=== PATIENT | female | born 1955 | race African-American/Black ===

== ENCOUNTER 2017-08-14 20:21 | Emergency (ER) | payer SELFPAY ==
[~2017-08-14 20:21] MED LIST: AMLO5 PO; COLA100C PO; LORTA5 PO; PROT40TA PO
[2017-08-14 20:39] VITALS: BP 131/71; PULSE 106; RESP 15; TEMP 98.9; O2SAT 98
--- NOTE | 2017-08-15 12:13 | PD ---
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 It has been happening intermittently. She reports some lower abdominal cramping but no significant pain. Denies any trauma. No fever or chills. She has no other symptoms to report. PFSH Past Medical History Asthma: Yes Cancer: No Cardiovascular Problems: No COPD: Yes Diabetes: No Endocrine: No Genitourinary: No Immune Disorder: No Implanted Vascular Access Dvce: No Musculoskeletal: No Neurologic: No Psychiatric: No Reproductive: No Respiratory: Yes (ASTHMA) Sleep Apnea: No Thyroid Disease: No Ulcer: Yes Menopausal: Yes : 2 Para: 2 Past Surgical History Abdominal Surgery: Yes (ulcer perforation 09/30/15) Eye Surgery: Yes (BILAT CATARACT REMOVALS IN 2006) Oral Surgery: Yes (T&A A CHILD) Tonsillectomy: Yes Other Surgery: Yes Social History Alcohol Use: No Tobacco Use: Yes (1 PPD) Substance Use: No Allergies-Medications (Allergen,Severity, Reaction): Coded Allergies: No Known Allergies (Unverified Allergy, Unknown, 08/15/17) Reported Meds & Prescriptions Reported Meds & Active Scripts Active Protonix (Pantoprazole Sodium) 40 Mg Tab 40 Mg PO BID 90 Days Norvasc (Amlodipine Besylate) 5 Mg Tab 5 Mg PO DAILY 30 Days [place] 5-325 mg (Hydrocodone-Acetaminophen 5-325 mg) 5 mg/325 mg Tab 1-2 Tab PO Q4H PRN Colace (Docusate Sodium) 100 Mg Cap 100 Mg PO BID Review of Systems Except as stated in HPI: all other systems reviewed are Neg Physical Exam Narrative Well-nourished female patient ambulatory and in no acute distress. Patient appears nontoxic. Heart rate is tachycardic. She has even respirations. Abdomen is rotund. She moves all extremities. She speaks clearly to me. Data Data Last Documented VS Vital Signs Date Time Temp Pulse Resp B/P (MAP) Pulse Ox O2 Delivery O2 Flow Rate FiO2 08/14/17 20:39 98.9 106 15 131/71 (91) 98 Orders MDM Medical Decision Making Medical Screen Exam Complete: Yes Emergency Medical Condition: Yes Medical Record Reviewed: Yes Differential Diagnosis GI bleed versus neoplasm versus anemia versus hemorrhoid Narrative Course 62-year-old female presents to emergency department for evaluation of vaginal and rectal bleeding. Patient appears nontoxic. Workup is initiated in triage. Prior to the placement, patient chooses to leave AMA: The risks of leaving against medical advice without further evaluation treatment were discussed with the patient. These risks include cardiac dysfunction, cardiac dysrhythmia, possible heart attack, possible stroke or . The patient indicated understanding of these risks and appeared to have the capacity to make this decision. Diagnosis Primary Impression: Bleeding Patient Instructions: General Instructions Departure Forms: Tests/Procedures Disposition: 07 AGAINST MEDICAL ADVICE Condition: Stable Mami Linder Aug 15, 2017 12:13
== END 2017-08-15 02:04 | disposition left against medical advice (07) ==
LOC: NED 20:21
DX: K62.5 Hemorrhage of anus and rectum (principal); Z53.21 Procedure and treatment not carried out due to patient leaving prior to being seen by health care provider; N93.9 Abnormal uterine and vaginal bleeding, unspecified; R10.30 Lower abdominal pain, unspecified; R00.0 Tachycardia, unspecified; J45.909 Unspecified asthma, uncomplicated; Z72.0 Tobacco use
CPT/HCPCS: 99281

== ENCOUNTER 2017-08-15 11:27 | Inpatient (IN) | payer OTHER ==
[~2017-08-15] VITALS: Ht 162.6 cm; Wt 85.0 kg
[2017-08-15] MEDS ORDERED: IOHEXOL 350 MG/ML 10 ML VIAL (for RAD DIAG) IVCONTRAST ONE (11:28)
[2017-08-15 11:40] VITALS: BP 113/65; PULSE 140; RESP 22; TEMP 102.8; O2SAT 97
--- NOTE | 2017-08-15 12:11 | RADRPT ---
EXAM DATE/TIME: 08/15/2017 11:52 [facility] COMPARISON: No previous studies available for comparison. INDICATIONS : Fever, cough, short of breath. MEDICAL HISTORY : None. SURGICAL HISTORY : None. ENCOUNTER: Initial ACUITY: 1 day PAIN SCORE: Non-responsive. LOCATION: Bilateral chest FINDINGS: PA and lateral views of the chest demonstrate the lungs to be symmetrically aerated without evidence of mass, infiltrate or effusion. The cardiomediastinal contours are unremarkable. Osseous structure s are intact. CONCLUSION: No acute disease. Mayco Lazo MD on August 15, 2017 at 12:09 Board Certified Radiologist. This report was verified electronically.
[2017-08-15 12:59] VITALS: BP 119/58; PULSE 114; RESP 19; O2SAT 96
--- NOTE | 2017-08-15 12:59 | PD ---
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 She did not know she had a fever. She denies any other specific complaints at this time. She states she took Tylenol PM last night but has not taken anything today. She states she doesn't think she's seen a physician for this. History is limited from patient as she is a poor historian. PFSH Past Medical History Asthma: Yes Cancer: No Cardiovascular Problems: No COPD: Yes Diabetes: No Endocrine: No Genitourinary: No Immune Disorder: No Implanted Vascular Access Dvce: No Musculoskeletal: No Neurologic: No Psychiatric: No Reproductive: No Respiratory: Yes (ASTHMA) Sleep Apnea: No Thyroid Disease: No Ulcer: Yes ?: Unknown Menopausal: Yes : 2 Para: 2 Past Surgical History Abdominal Surgery: Yes (ulcer perforation 09/30/15) Eye Surgery: Yes (BILAT CATARACT REMOVALS IN 2006) Oral Surgery: Yes (T&A A CHILD) Tonsillectomy: Yes Other Surgery: Yes Social History Alcohol Use: No Tobacco Use: Yes (1 PPD) Substance Use: No Allergies-Medications (Allergen,Severity, Reaction): Coded Allergies: No Known Allergies (Unverified Allergy, Unknown, 08/15/17) Reported Meds & Prescriptions Reported Meds & Active Scripts Active Protonix (Pantoprazole Sodium) 40 Mg Tab 40 Mg PO BID 90 Days Norvasc (Amlodipine Besylate) 5 Mg Tab 5 Mg PO DAILY 30 Days [place] 5-325 mg (Hydrocodone-Acetaminophen 5-325 mg) 5 mg/325 mg Tab 1-2 Tab PO Q4H PRN Colace (Docusate Sodium) 100 Mg Cap 100 Mg PO BID Review of Systems Except as stated in HPI: all other systems reviewed are Neg Physical Exam Narrative GENERAL: 62-year-old female in no apparent distress SKIN: Focused skin assessment warm/dry. HEAD: Atraumatic. Normocephalic. EYES: Pupils equal and round. No scleral icterus. No injection or drainage. ENT: No nasal bleeding or discharge. Mucous membranes pink and moist. NECK: Trachea midline. No JVD. CARDIOVASCULAR: Regular rate and rhythm. RESPIRATORY: No accessory muscle use. Clear to auscultation. Breath sounds equal bilaterally. GASTROINTESTINAL: Abdomen soft, mild tenderness to lower abdomen, nondistended. No rebound or guarding MUSCULOSKELETAL: No obvious deformities. No clubbing. No cyanosis. NEUROLOGICAL: Awake. Moves all extremities. Normal speech. Data Data Last Documented VS Vital Signs Date Time Temp Pulse Resp B/P (MAP) Pulse Ox O2 Delivery O2 Flow Rate FiO2 08/15/17 14:57 100.2 08/15/17 12:59 114 19 96 Room Air Orders Orders Sepsis Workup Initiated (08/15/17 ) Complete Blood Count With Diff (08/15/17 11:38) Comprehensive Metabolic Panel (08/15/17 11:38) Lactic Acid Sepsis Protocol (08/15/17 11:38) Blood Culture (08/15/17 11:38) Iv Access Insert/Monitor (08/15/17 11:38) Oximetry (08/15/17 11:38) Blood Glucose (08/15/17 11:38) Electrocardiogram (08/15/17 ) Chest, Pa & Lat (08/15/17 11:38) Lipase (08/15/17 12:44) Urinalysis - C+S If Indicated (08/15/17 12:51) Ct Abd/Pel W Iv Contrast(Rout) (08/15/17 ) Acetaminophen (Tylenol) (08/15/17 13:00) Sodium Chlor 0.9% 1000 Ml Inj (Ns 1000 M (08/15/17 13:00) Sodium Chlor 0.9% 1000 Ml Inj (Ns 1000 M (08/15/17 15:15) Urinary Catheter Insert/Apply (08/15/17 15:04) Piperacil-Tazo 4.5 Gm Premix (Zosyn 4.5 (08/15/17 15:15) Iohexol 350 Inj (Omnipaque 350 Inj) (08/15/17 11:28) Urine Culture (08/15/17 15:25) Sodium Chlorid 0.9% 500 Ml Inj (Ns 500 M (08/15/17 16:45) Admit Order (Ed Use Only) (08/15/17 16:43) Labs Laboratory Tests Test 08/15/17 11:38 08/15/17 13:09 08/15/17 15:25 08/15/17 16:10 Blood Urea Nitrogen 8 MG/DL Creatinine 1.03 MG/DL Random Glucose 303 MG/DL Total Protein 8.4 GM/DL Albumin 2.5 GM/DL Calcium Level 8.9 MG/DL Alkaline Phosphatase 141 U/L Aspartate Amino Transf (AST/SGOT) 10 U/L Alanine Aminotransferase (ALT/SGPT) 11 U/L Total Bilirubin 0.7 MG/DL Sodium Level 130 MEQ/L Potassium Level 4.2 MEQ/L Chloride Level 98 MEQ/L Carbon Dioxide Level 22.9 MEQ/L Anion Gap 9 MEQ/L Estimat Glomerular Filtration Rate 66 ML/MIN Lipase 41 U/L White Blood Count 13.2 TH/MM3 Red Blood Count 3.16 MIL/MM3 Hemoglobin 9.5 GM/DL Hematocrit 27.4 % Mean Corpuscular Volume 86.6 FL Mean Corpuscular Hemoglobin 30.0 PG Mean Corpuscular Hemoglobin Concent 34.7 % Red Cell Distribution Width 14.4 % Platelet Count 459 TH/MM3 Mean Platelet Volume 6.5 FL Neutrophils (%) (Auto) 97.4 % Lymphocytes (%) (Auto) 1.7 % Monocytes (%) (Auto) 0.7 % Eosinophils (%) (Auto) 0.1 % Basophils (%) (Auto) 0.1 % Neutrophils # (Auto) 12.8 TH/MM3 Lymphocytes # (Auto) 0.2 TH/MM3 Monocytes # (Auto) 0.1 TH/MM3 Eosinophils # (Auto) 0.0 TH/MM3 Basophils # (Auto) 0.0 TH/MM3 CBC Comment AUTO DIFF Differential Total Cells Counted 100 Neutrophils % (Manual) 71 % Band Neutrophils % 25 % Lymphocytes % 4 % Neutrophils # (Manual) 12.7 TH/MM3 Differential Comment FINAL DIFF MANUAL Platelet Estimate HIGH Platelet Morphology Comment NORMAL Red Cell Morphology Comment NORMAL Lactic Acid Level 2.2 mmol/L 1.7 mmol/L Urine Color YELLOW Urine Turbidity CLOUDY Urine pH 5.0 Urine Specific [place] 1.009 Urine Protein TRACE mg/dL Urine Glucose (UA) NEG mg/dL Urine Ketones NEG mg/dL Urine Occult Blood TRACE Urine Nitrite NEG Urine Bilirubin NEG Urine Urobilinogen LESS THAN 2.0 MG/DL Urine Leukocyte Esterase LARGE Urine RBC 1 /hpf Urine WBC 25 /hpf Urine Bacteria MANY /hpf Microscopic Urinalysis Comment CULTURE INDICATED MDM Medical Decision Making Medical Screen Exam Complete: Yes Emergency Medical Condition: Yes Medical Record Reviewed: Yes (past history confirmed) Interpretation(s) CBC & BMP Diagram 08/15/17 11:38 Total Protein 8.4 H, Albumin 2.5 L, Calcium Level 8.9, Alkaline Phosphatase 141 H, Aspartate Amino Transf (AST/SGOT) 10 L, Alanine Aminotransferase (ALT/SGPT) 11, Total Bilirubin 0.7 08/15/17 13:09 Last 24 hours Impressions Chest X-Ray 08/15/17 1138 Signed Impressions: Service Date/Time: Tuesday, August 15, 2017 11:52 - CONCLUSION: No acute disease. Mayco Lazo MD Abdomen/Pelvis CT 08/15/17 0000 Signed Impressions: Service Date/Time: Tuesday, August 15, 2017 15:53 - CONCLUSION: 1. Grossly abnormal uterus with a large heterogeneous lower uterine segment which appears to be causing obstruction to the body of the uterus. Neoplastic disease of the lower uterus and/or cervix are the primary considerations. 2. The rest of the abdomen/pelvis is stable compared to the prior exam. Joaquín Leonard MD Differential Diagnosis Sepsis, UTI, pneumonia, intra-abdominal Narrative Course Will check blood work, urinalysis, CT scan abdominal pelvis and reevaluate. Chest x-ray from triage shows no acute process Will discuss abnormal CT with OB hospitalist and admit to the hospital for further care. Patient updated and agrees to plan Sepsis Criteria SIRS Criteria (2 or more): Temp > 100.9 or < 96.8, Heart rate over 90 Sepsis Criteria (SIRS+source): Infect source susp/known Severe Sepsis (+one): Lactate >2 Criteria Outcome: Meets severe sepsis criteria Physician Communication Physician Communication d/w ob hospitalist dr de leon in ER who came down to see a different patient and states needs outpatient rn gyn follow up in terms of ct findings and symptoms in regards to bleeding dr griffiths agrees to admit Diagnosis Primary Impression: Sepsis Qualified Codes: A41.9 - Sepsis, unspecified organism Additional Impressions: UTI (urinary tract infection) Qualified Codes: N39.0 - Urinary tract infection, site not specified Abdominal pain Qualified Codes: R10.30 - Lower abdominal pain, unspecified Hyponatremia Admitting Information Admitting Physician Requests: Admit Daria Guzman MD Aug 15, 2017 12:59
[2017-08-15] MEDS ORDERED: ACETAMINOPHEN 325 MG TAB PO ONE (13:00)
[2017-08-15] MEDS ORDERED: SODIUM CHLOR 0.9% 1000 ML INJ 1,000 ML IV ONE ×2 (13:00→15:15)
[2017-08-15 13:40] LABS: AUTOMATED NEUTROPHIL # 12.8 TH/MM3 (1.8-7.7); BASOPHIL % 0.1 % (0.0-2.0); EOSINOPHIL % 0.1 % (0.0-4.0); HEMATOCRIT 27.4 % (35.0-46.0); HEMOGLOBIN 9.5 GM/DL (11.6-15.3); LYMPH % 1.7 % (9.0-44.0); LYMPHOCYTE # 0.2 TH/MM3 (1.0-4.8); MEAN CELL VOLUME 86.6 FL (80.0-100.0); MEAN CORPUSCULAR HGB CONC 34.7 % (32.0-36.0); MEAN PLATELET VOLUME 6.5 FL (7.0-11.0); MONO % 0.7 % (0.0-8.0); MONOCYTE # 0.1 TH/MM3 (0-0.9); NEUT % 97.4 % (16.0-70.0); PLATELET COUNT 459 TH/MM3 (150-450); RED BLOOD COUNT 3.16 MIL/MM3 (4.00-5.30); RED CELL DISTRIBUTION WIDTH 14.4 % (11.6-17.2); WHITE BLOOD COUNT 13.2 TH/MM3 (4.0-11.0)
[2017-08-15 13:44] LABS: LACTIC ACID SEPSIS PROTOCOL 2.2 mmol/L (0.4-2.0)
[2017-08-15 14:07] LABS: BANDS 25 % (0-6); LYMPHOCYTES 4 % (9-44); NEUTROPHIL # MANUAL DIFF 12.7 TH/MM3 (1.8-7.7); POLYS (SEG NEUTROPHILS) 71 % (16-70)
[2017-08-15 14:57] VITALS: TEMP 100.2
[2017-08-15 15:13] LABS: ALBUMIN 2.5 GM/DL (3.4-5.0); ALT (GPT) 11 U/L (10-53); AST (GOT) 10 U/L (15-37); BICARBONATE 22.9 MEQ/L (21.0-32.0); BLOOD UREA NITROGEN 8 MG/DL (7-18); CALCIUM 8.9 MG/DL (8.5-10.1); CHLORIDE 98 MEQ/L (98-107); CREATININE 1.03 MG/DL (0.50-1.00); GLOMERULAR FILTRATION RATE 66 ML/MIN (>89); GLUCOSE,RANDOM 303 MG/DL (74-106); SODIUM (NA) 130 MEQ/L (136-145)
[2017-08-15] MEDS ORDERED: PIPERACIL-TAZO 4.5 GM PREMIX 100 ML IV ONE (15:15)
[2017-08-15 15:16] LABS: ALKALINE PHOSPHATASE 141 U/L (45-117); TOTAL BILIRUBIN ADULT 0.7 MG/DL (0.2-1.0); TOTAL PROTEIN 8.4 GM/DL (6.4-8.2)
[2017-08-15 16:13] LABS: BACTERIA, URINE MANY /hpf; BILIRUBIN, URINE NEG (NEG); BLOOD, URINE TRACE (NEG); GLUCOSE,URINE NEG (NEG); KETONE, URINE NEG (NEG); NITRITE,URINE NEG (NEG); URINE COLOR YELLOW (YELLW/STRAW); URINE LEUKOCYTE ESTERASE LARGE (NEG)
--- NOTE | 2017-08-15 16:22 | RADRPT ---
EXAM DATE/TIME: 08/15/2017 15:53 [facility] COMPARISON: CT ABDOMEN & PELVIS W CONTRAST, September 29, 2015, 21:15. INDICATIONS : Diffuse lower abdomen pain with vaginal bleeding. IV CONTRAST: 86 cc Omnipaque 350 (iohexol) IV ORAL CONTRAST: No oral contrast ingested. RADIATION DOSE: 7.17 CTDIvol (mGy) MEDICAL HISTORY : Hypertension. Chronic obstructive pulmonary disease. SURGICAL HISTORY : None. ENCOUNTER: Initial ACUITY: 4 - 6 days PAIN SCALE: 6/10 LOCATION: Bilateral lower quadrant TECHNIQUE: Volumetric scanning of the abdomen and pelvis was performed. Using automated exposure control and ad justment of the mA and/or kV according to patient size, radiation dose was kept as low as reasonably achievable to obtain optimal diagnostic quality images. DICOM format image data is available electro nically for review and comparison. FINDINGS: LOWER LUNGS: The visualized lower lungs are clear. LIVER: Homogeneous density without lesion. There is no dilation of the biliary tree. No calcified gallston es. SPLEEN: Normal size without lesion. PANCREAS: Within normal limits. KIDNEYS: Normal in size and shape. There is no mass, stone or hydronephrosis. ADRENAL GLANDS: Within normal limits. VASCULAR: There is no aortic aneurysm. BOWEL/MESENTERY: The stomach, small bowel, and colon demonstrate no acute abnormality. There is no free intraperitone al air or fluid. There is stool seen throughout the colon. No inflammatory changes are seen. ABDOMINAL WALL: Small umbilical hernia containing mesenteric fat. RETROPERITONEUM: There is no lymphadenopathy. BLADDER: Jackson catheter. Decompressed urinary bladder.. REPRODUCTIVE: There has been interval change with the uterus compared to the prior study. The lower uterine segment is large heterogeneous and irregular measuring approximately 6.9 x 8.1 cm. The uterus is diffusely e nlarged and there appears to be fluid in the endometrial cavity suggestive of an obstructed uterus. T hese findings would be highly suspicious for neoplastic disease. INGUINAL: There is no lymphadenopathy or hernia. MUSCULOSKELETAL: Within normal limits for patient age. CONCLUSION: 1. Grossly abnormal uterus with a large heterogeneous lower uterine segment which appears to be causi ng obstruction to the body of the uterus. Neoplastic disease of the lower uterus and/or cervix are th e primary considerations. 2. The rest of the abdomen/pelvis is stable compared to the prior exam. Joaquín Leonard MD on August 15, 2017 at 16:16 Board Certified Radiologist. This report was verified electronically.
[2017-08-15] MEDS ORDERED: SODIUM CHLORID 0.9% 500 ML INJ 500 ML IV ONE (16:45)
[2017-08-15] MEDS ORDERED: NALOXONE HCL 0.4 MG/ML AMP IV PUSH PRN (17:00)
[2017-08-15 17:47] VITALS: BP 91/51; PULSE 88; RESP 18; O2SAT 99
[2017-08-15] MEDS ORDERED: DEXTROSE 50% IN WATER 50 ML VIAL(D50) IV PUSH PRN (18:15)
[2017-08-15] MEDS ORDERED: GLUCAGON 1 MG/ML VIAL OTHER PRN (18:15)
[2017-08-15 18:23] VITALS: BP 99/58; PULSE 93; RESP 18; TEMP 98.6; O2SAT 95
--- NOTE | 2017-08-15 18:23 | HHI.HP ---
HPI Service [facility] Hospitalists Primary Care Physician No Primary Care Physician Admission Diagnosis sepsis, uti Diagnoses: Chief Complaint: Abdominal pain Vaginal bleeding Rectal bleeding Travel History International Travel<30 Days: No Contact w/Intl Traveler <30 Da: No Traveled to Known Affected Are: No Sepsis Criteria SIRS Criteria (2 or more): Temp > 100.9 or < 96.8, Heart rate over 90, RR > 20 or PaCO2 < 32, WBC > 35534, < 4000 or > 10% bands Sepsis Criteria (SIRS+source): Infect source susp/known Severe Sepsis (+one): Lactate >2, Acute Oliguria/Renal Failure Criteria Outcome: Meets severe sepsis criteria History of Present Illness This is a 62yo female with a past medical history significant for asthma/COPD, hx of perforated viscus, hypertension, diabetes and previous tobacco use with poor medical follow up who presents to [facility] ED with complaints of lower abdominal pain and vaginal bleeding for the past month. She also reports rectal bleeding for the past 2 weeks. She is not a very good historian. [facility]. She denies any fever or chills. She denies any dizziness, lightheadedness or palpitations. She denies any chest pain or shortness of breath. She denies any nausea, vomiting or abdominal pain. She denies any dysuria. She denies any dark/bloody/tarry stools but reports seeing blood on the tissues when she wiped after having a bowel movement. Patient states she quit smoking one year ago. In the ED, CT of abdomen and pelvis was obtained revealing grossly abnormal uterus with large heterogeneous lower uterine segment which appears to be causing obstruction to the body of the uterus. Neoplastic disease of the lower uterus and cervix are primary considerations. Review of Systems Except as stated in HPI: all other systems reviewed are Neg Past Family Social History Past Medical History Asthma/COPD Hx of perforated ulcer Hypertension Diabetes Past Surgical History Cataract surgery Laparoscopic repair of perforated ulcer Tonsillectomy Reported Medications Protonix (Pantoprazole Sodium) 40 Mg Tab 40 Mg PO BID 90 Days Norvasc (Amlodipine Besylate) 5 Mg Tab 5 Mg PO DAILY 30 Days [place] 5-325 mg (Hydrocodone-Acetaminophen 5-325 mg) 5 mg/325 mg Tab 1-2 Tab PO Q4H PRN Colace (Docusate Sodium) 100 Mg Cap 100 Mg PO BID Allergies: Coded Allergies: No Known Allergies (Unverified Allergy, Unknown, 08/15/17) Active Ordered Medications Current Medications Medications (Trade) Dose Ordered Sig/Caitlin Route Start Time Stop Time Status Last Admin Sodium Chloride 500 ml @ 500 mls/hr BOLUS ONCE IV 08/15/17 16:45 08/15/17 17:44 Sodium Chloride 1,000 ml @ 100 mls/hr Q10H IV 08/15/17 16:57 UNV (NS Flush) 2 ml UNSCH PRN IV FLUSH 08/15/17 17:00 UNV (NS Flush) 2 ml BID IV FLUSH 08/15/17 21:00 UNV (Narcan Inj) 0.4 mg UNSCH PRN IV PUSH 08/15/17 17:00 UNV Piperacillin Sod/ Tazobactam Sod 100 ml @ 200 mls/hr Q6H IV 08/15/17 21:00 UNV Family History Patient is adopted Social History Patient has a history of tobacco use of one to 2 packs per day for many years but quit 1 year ago. She denies any alcohol use. She denies any illicit drug use. She lives with her daughter who is 43. Physical Exam Vital Signs Vital Signs Date Time Temp Pulse Resp B/P (MAP) Pulse Ox O2 Delivery O2 Flow Rate FiO2 08/15/17 14:57 100.2 08/15/17 12:59 114 19 119/58 (78) 96 Room Air 08/15/17 11:40 102.8 140 22 113/65 (81) 97 Physical Exam GENERAL: This is a well-nourished, well-developed female patient, in no apparent distress. Awake and alert. Appears comfortable. SKIN: No rashes, ecchymoses or lesions. Cool and dry. HEAD: Atraumatic. Normocephalic. No temporal or scalp tenderness. EYES: Pupils equal round and reactive. Extraocular motions intact. No scleral icterus. No injection or drainage. ENT: Nose without bleeding or purulent drainage. Throat without erythema, tonsillar hypertrophy or exudate. Uvula midline. Airway patent. NECK: Trachea midline. No lymphadenopathy. Supple, nontender, no meningeal signs. CARDIOVASCULAR: Regular rate and rhythm without murmurs, gallops, or rubs. RESPIRATORY: Clear to auscultation. Breath sounds equal bilaterally. No wheezes , rales, or rhonchi. GASTROINTESTINAL: Abdomen soft, non-tender, nondistended. No hepato-splenomegaly , or palpable masses. No guarding. GENITOURINARY: Jackson catheter in place with yellow urine in the bag. RECTAL: (+)external hemorrhoid. Guaiac test positive. MUSCULOSKELETAL: Extremities without clubbing, cyanosis, or edema. No joint tenderness, effusion, or edema noted. No calf tenderness. NEUROLOGICAL: Awake and alert. Cranial nerves II through XII grossly intact. Motor and sensory grossly within normal limits. Five out of 5 muscle strength in all muscle groups. Normal speech. Laboratory Laboratory Tests Test 08/15/17 11:38 08/15/17 13:09 08/15/17 15:25 08/15/17 16:10 Blood Urea Nitrogen 8 Creatinine 1.03 Random Glucose 303 Total Protein 8.4 Albumin 2.5 Calcium Level 8.9 Alkaline Phosphatase 141 Aspartate Amino Transf (AST/SGOT) 10 Alanine Aminotransferase (ALT/SGPT) 11 Total Bilirubin 0.7 Sodium Level 130 Potassium Level 4.2 Chloride Level 98 Carbon Dioxide Level 22.9 Anion Gap 9 Estimat Glomerular Filtration Rate 66 Lipase 41 White Blood Count 13.2 Red Blood Count 3.16 Hemoglobin 9.5 Hematocrit 27.4 Mean Corpuscular Volume 86.6 Mean Corpuscular Hemoglobin 30.0 Mean Corpuscular Hemoglobin Concent 34.7 Red Cell Distribution Width 14.4 Platelet Count 459 Mean Platelet Volume 6.5 Neutrophils (%) (Auto) 97.4 Lymphocytes (%) (Auto) 1.7 Monocytes (%) (Auto) 0.7 Eosinophils (%) (Auto) 0.1 Basophils (%) (Auto) 0.1 Neutrophils # (Auto) 12.8 Lymphocytes # (Auto) 0.2 Monocytes # (Auto) 0.1 Eosinophils # (Auto) 0.0 Basophils # (Auto) 0.0 CBC Comment AUTO DIFF Differential Total Cells Counted 100 Neutrophils % (Manual) 71 Band Neutrophils % 25 Lymphocytes % 4 Neutrophils # (Manual) 12.7 Differential Comment FINAL DIFF MANUAL Platelet Estimate HIGH Platelet Morphology Comment NORMAL Red Cell Morphology Comment NORMAL Lactic Acid Level 2.2 1.7 Urine Color YELLOW Urine Turbidity CLOUDY Urine pH 5.0 Urine Specific [place] 1.009 Urine Protein TRACE Urine Glucose (UA) NEG Urine Ketones NEG Urine Occult Blood TRACE Urine Nitrite NEG Urine Bilirubin NEG Urine Urobilinogen LESS THAN 2.0 Urine Leukocyte Esterase LARGE Urine RBC 1 Urine WBC 25 Urine Bacteria MANY Microscopic Urinalysis Comment CULTURE INDICATED Date/Time Source Procedure Growth Status 08/15/17 13:09 Blood Peripheral Aerobic Blood Culture Pending Received 08/15/17 13:09 Blood Peripheral Anaerobic Blood Culture Pending Received 08/15/17 15:25 Urine Clean Catch Urine Culture Pending Received Result Diagram: 08/15/17 1309 08/15/17 1138 Imaging Last Impressions Chest X-Ray 08/15/17 1138 Signed Impressions: Service Date/Time: Tuesday, August 15, 2017 11:52 - CONCLUSION: No acute disease. Mayco Lazo MD Abdomen/Pelvis CT 08/15/17 0000 Signed Impressions: Service Date/Time: Tuesday, August 15, 2017 15:53 - CONCLUSION: 1. Grossly abnormal uterus with a large heterogeneous lower uterine segment which appears to be causing obstruction to the body of the uterus. Neoplastic disease of the lower uterus and/or cervix are the primary considerations. 2. The rest of the abdomen/pelvis is stable compared to the prior exam. MD Paulo Jackson VTE Risk Assessment Caprinchantal VTE Risk Assessment: Mod/High Risk (score >= 2) VTE Pharm Contraindication: Active bleeding Caprini Risk Assessment Model Point Value = 1 Point Value = 2 Point Value = 3 Point Value = 5 Age 41-60 Minor surgery BMI > 25 kg/m2 Swollen legs Varicose veins or History of unexplained or recurrent spontaneous Oral contraceptives or hormone replacement Sepsis (< 1 month) Serious lung disease, including pneumonia (< 1 month) Abnormal pulmonary function Acute myocardial infarction Congestive heart failure (< 1 month) History of inflammatory bowel disease Medical patient at bed rest Age 61-74 Arthroscopic surgery Major open surgery (> 45 min) Laparoscopic surgery (> 45 min) Malignancy Confined to bed (> 72 hours) Immobilizing plaster cast Central venous access Age >= 75 History of VTE Family history of VTE Factor V Leiden Prothrombin [id number] Lupus anticoagulant Anticardiolipin antibodies Elevated serum homocysteine Heparin-induced thrombocytopenia Other congenital or acquired thrombophilia Stroke (< 1 month) Elective arthroplasty Hip, pelvis, or leg fracture Acute spinal cord injury (< 1 month) Prophylaxis Regimen Total Risk Factor Score Risk Level Prophylaxis Regimen 0-1 Low Early ambulation 2 Moderate Order ONE of the following: *Sequential Compression Device (SCD) *Heparin 5000 units SQ BID 3-4 Higher Order ONE of the following medications: *Heparin 5000 units SQ TID *Enoxaparin/Lovenox 40 mg SQ daily (WT < 150 kg, CrCl > 30 mL/min) *Enoxaparin/Lovenox 30 mg SQ daily (WT < 150 kg, CrCl > 10-29 mL/min) *Enoxaparin/Lovenox 30 mg SQ BID (WT < 150 kg, CrCl > 30 mL/min) AND/OR *Sequential Compression Device (SCD) 5 or more Highest Order ONE of the following medications: *Heparin 5000 units SQ TID (Preferred with Epidurals) *Enoxaparin/Lovenox 40 mg SQ daily (WT < 150 kg, CrCl > 30 mL/min) *Enoxaparin/Lovenox 30 mg SQ daily (WT < 150 kg, CrCl > 10-29 mL/min) *Enoxaparin/Lovenox 30 mg SQ BID (WT < 150 kg, CrCl > 30 mL/min) AND *Sequential Compression Device (SCD) Assessment and Plan Assessment and Plan 62yo female with a past medical history significant for asthma/ COPD, hx of perforated viscus, hypertension, diabetes and previous tobacco use with poor medical follow up who presents to [facility] ED with complaints of lower abdominal pain and vaginal bleeding for the past month. She also reports rectal bleeding for the past 2 weeks. Patient meets severe sepsis criteria with fever of 102.8, tachycardiac with HR 140, RR 22, elevated white count of 13.2, lactic acid of 2.2, creatinine 1.03 and UTI source -Patient admitted with sepsis bundle in the ED. Repeat lactic acid is 1.7 -IVF -IV Zosyn given in ED, continue -continue to monitor white count -follow up on final urine and blood culture results -supportive care -Continuous cardiac monitoring GIB -stool Guaiac positive -NPO -IVF -Protonix 40mg IV BID -Consult GI, appreciate recommendations -serial H/H -avoid anticoagulants Anemia -hemoglobin 9.5 -Appears chronic -Serial H&H's given GIB and AUB -obtain iron studies -monitor H/H closely Abnormal uterine bleeding -CT abd/pelvis reveals grossly abnormal uterus with large heterogeneous lower uterine segment which appears to be causing obstruction to the body of the uterus. Neoplastic disease of the lower uterus and cervix are primary considerations. -Consult gynecology, appreciate assistance MIK on ?CKD -Unsure of patient's baseline, last creatinine in the system 0.60 09/2015 -Avoid nephrotoxic agent -IV fluid -Continue to follow renal indices Diabetes -Documented history in the EMR but patient denies -Random glucose 303. Obtain A1c level. Previous A1c 8.2 10/03/15. -accucheck and ISS -Hold off on initiation of scheduled insulin due to NPO Hypertension -Documented history in the EMR but patient denies -Previously on Norvasc 5 mg daily -Blood pressure currently controlled -will continue to monitor BP off meds and will initiate treatment if indicated Asthma/COPD, not in acute exacerbation -DuoNeb's when necessary -Continue to monitor respiratory status DVT prophylaxis -Avoid chemoprophylaxis secondary to GI bleed -bilateral SCD/DENISE hose Discussed Condition With Patient and Dr. Brock Physician Certification 2 Midnight Certification Type: Admission for Inpatient Services Order for Inpatient Services The services are ordered in accordance with Medicare regulations or non- Medicare payer requirements, as applicable. In the case of services not specified as inpatient-only, they are appropriately provided as inpatient services in accordance with the 2-midnight benchmark. Estimated LOS (days): 3 3 days is the estimated time the patient will need to remain in the hospital, assuming treatment plan goals are met and no additional complications. Post-Hospital Plan: Not yet determined Rufina Austin Aug 15, 2017 18:23
[2017-08-15] MEDS ORDERED: RESP: ALBUTEROL 2.5 MG/IPRATROPIUM 0.5 MG NEB (PRN) NEB (18:30)
[2017-08-15] MEDS ORDERED: hydrALAZINE HCL 10 MG TAB PO PRN (18:30)
[2017-08-15] MEDS: PANTOPRAZOLE SODIUM 40 MG VIAL IV PUSH SCH (18:52)
[2017-08-15 19:06] LABS: IRON (FE) 12 MCG/DL (50-170)
[2017-08-15 19:31] LABS: % SATURATION IRON PROFILE 6.5 % (20-50); FERRITIN 152 NG/ML (8-252); FOLATE 6.1 NG/ML (3.1-17.5); TOTAL IRON BINDING CAPACITY 183 MCG/DL (250-450)
[2017-08-15 20:00] VITALS: BP 103/58; PULSE 86; RESP 18; TEMP 97.8; O2SAT 96
[2017-08-15] MEDS: SODIUM CHLOR 0.9% 1000 ML INJ 1,000 ML IV SCH (21:40)
[2017-08-15] MEDS: PIPERACIL-TAZO 4.5 GM PREMIX 100 ML IV SCH (21:40)
[2017-08-15] MEDS: SODIUM CHLORIDE 0.9% FLUSH 10 ML FLUSH IV FLUSH SCH (21:41)
[2017-08-15] MEDS: INSULIN ASPART SUPPLEMENTAL SCALE SQ SCH (22:00)
[2017-08-16] VITALS (10 sets, daily range): BP systolic 90–130; BP diastolic 48–62; PULSE 81–111; RESP 16–20; TEMP 96.3–102.1; O2SAT 93–98
[2017-08-16 00:38] LABS: HEMOGLOBIN 7.6 GM/DL (11.6-15.3)
[2017-08-16 00:44] LABS: HEMATOCRIT 20.4 % (35.0-46.0)
[2017-08-16] MEDS: ACETAMINOPHEN 325 MG TAB PO PRN ×3 (02:08→10:00)
[2017-08-16] MEDS: PIPERACIL-TAZO 4.5 GM PREMIX 100 ML IV SCH ×4 (02:08→21:54)
[2017-08-16] MEDS: SODIUM CHLOR 0.9% 1000 ML INJ 1,000 ML IV SCH ×3 (02:09→22:00)
[2017-08-16 04:23] LABS: BASOPHIL % 0.2 % (0.0-2.0); HEMATOCRIT 21.8 % (35.0-46.0); HEMOGLOBIN 7.2 GM/DL (11.6-15.3); LYMPHOCYTE # 0.5 TH/MM3 (1.0-4.8); MEAN CELL VOLUME 85.3 FL (80.0-100.0); MEAN CORPUSCULAR HEMOGLOBIN 28.3 PG (27.0-34.0); MEAN CORPUSCULAR HGB CONC 33.2 % (32.0-36.0); MEAN PLATELET VOLUME 6.5 FL (7.0-11.0); MONO % 2.3 % (0.0-8.0); MONOCYTE # 0.4 TH/MM3 (0-0.9); NEUT % 94.5 % (16.0-70.0); PLATELET COUNT 342 TH/MM3 (150-450); RED BLOOD COUNT 2.56 MIL/MM3 (4.00-5.30); RED CELL DISTRIBUTION WIDTH 14.2 % (11.6-17.2); WHITE BLOOD COUNT 16.9 TH/MM3 (4.0-11.0)
[2017-08-16 04:56] LABS: BICARBONATE 21.9 MEQ/L (21.0-32.0); CREATININE 0.93 MG/DL (0.50-1.00)
[2017-08-16] MEDS: PANTOPRAZOLE SODIUM 40 MG VIAL IV PUSH SCH ×2 (04:58→16:59)
[2017-08-16] MEDS ORDERED: SODIUM CHLOR 0.9% 250 ML INJ 250 ML IV ONE (06:00)
[2017-08-16] MEDS ORDERED: POTASSIUM CHLORIDE 25 MEQ EFFERVESCENT TAB PO ONE (06:00)
[2017-08-16] MEDS ORDERED: diphenhydrAMINE HCL 25 MG CAP PO PRN (06:00)
[2017-08-16] MEDS: INSULIN ASPART SUPPLEMENTAL SCALE SQ SCH ×4 (08:00→21:00)
[2017-08-16] MEDS: SODIUM CHLORIDE 0.9% FLUSH 10 ML FLUSH IV FLUSH SCH ×2 (09:00→21:55)
--- NOTE | 2017-08-16 09:16 | PD.CONS ---
History of Present Illness Service [facility] Consult Requested By Dr. Brock, hospitalist Reason for Consult Abnormal CT Primary Care Physician No Primary Care Physician Diagnoses: (1) Abdominal pain History of Present Illness Ms. Salmeron is a 62-year-old female admitted for urosepsis and possible lower GI bleed. During evaluation, patient found to have abnormal uterus on CT and LACE SEWER was consulted. Chart review, patient initially complained of vaginal bleeding for the past month, however during my interview this morning stated her bleeding began last Monday with her rectal bleeding. She describes the bleeding is mild passing coffee nuno-sized clots last Monday, which have resolved. She is unable to clearly identify if her bleeding is vaginal or rectal at this time as she is only noticed the bleeding when she has a bowel movement and wipes. Patient denies any abnormal Pap smears and cannot remember the last time of exam. Patient states that she has been amenorrheic since 19 years of age "when she had her last child." She does endorse lower abdominal pain that has improved since her admission. She denies any anemic symptoms including presyncope, tachycardia, palpitations, or shortness of breath. Otherwise she has no complaints at this time and denies any recent fevers, chills, shortness of breath, chest pain, NVD, or calf tenderness. Review of Systems Constitutional: DENIES: Fever, Weight gain, Weight loss, Chills, Dizziness, Change in appetite, Night Sweats Eyes: DENIES: Blurred vision, Double Vision Ears, nose, mouth, throat: DENIES: Nasal discharge, Throat pain Respiratory: DENIES: Cough, Shortness of breath Cardiovascular: DENIES: Chest pain, Palpitations, Syncope Gastrointestinal: COMPLAINS OF: Abdominal pain, Bloody stools, DENIES: Black stools, Diarrhea, Nausea, Vomiting Genitourinary: COMPLAINS OF: Abnormal vaginal bleeding, DENIES: Dysuria Musculoskeletal: DENIES: Joint pain Integumentary: DENIES: Rash Hematologic/lymphatic: DENIES: Lymphadenopathy Neurologic: DENIES: Headache Psychiatric: DENIES: Mood changes Past Family Social History Allergies: Coded Allergies: No Known Allergies (Unverified Allergy, Unknown, 08/15/17) Past Medical History Poor health literacy Asthma/COPD Gastric ulceration Hypertension Diabetes LACE SEWER: Both pregnancies with full-term without complications Menarche age unknown LMP at 19 years of age when she "had her last child" No reported abnormal Pap smears, unknown last exam Unknown last mammogram Past Surgical History Laparoscopic repair of perforated ulcer Tonsillectomy Cataract surgery Family History Unknown as patient is adopted Social History Patient states that she currently lives with her daughter who is 43 years old. Tobacco - 2 packs per day for greater than 10 years, but states she quit one year ago Alcohol - no reported alcohol use Illicit - no reported illicit drug use Physical Exam Vital Signs Vital Signs Date Time Temp Pulse Resp B/P (MAP) Pulse Ox O2 Delivery O2 Flow Rate FiO2 08/16/17 08:00 98.6 90 16 93/51 (65) 96 08/16/17 05:27 21 08/16/17 04:00 100.2 102 20 99/48 (65) 95 08/16/17 01:11 101.1 08/16/17 00:08 111 08/16/17 00:00 102.1 108 20 106/56 (73) 93 08/15/17 20:00 97.8 86 18 103/58 (73) 96 08/15/17 18:23 98.6 93 18 99/58 (72) 95 08/15/17 17:47 88 18 91/51 (64) 99 Room Air 08/15/17 14:57 100.2 08/15/17 12:59 114 19 119/58 (78) 96 Room Air 08/15/17 11:40 102.8 140 22 113/65 (81) 97 Physical Exam GENERAL: Well-nourished, well-developed female lying in bed in no acute distress. SKIN: Warm and dry. No rash. Capillary refill slightly delayed greater than 2 seconds. HEENT: Atraumatic, normocephalic with extraocular motions intact. No rhinorrhea. No visible lymphadenopathy or jugulovenous distension appreciated. CARDIOVASCULAR: Slightly tachycardic rate with regular rhythm. No obvious murmurs, gallops, or rubs. 2+ pulses in all four extremities. RESPIRATORY: Clear to auscultation bilaterally with no crackles, wheezes, or rhonchi. No increased work of breathing. GASTROINTESTINAL: Abdomen soft, nondistended with positive bowel sounds. Patient tender to palpation in the left lower quadrant without radiation. No rebound tenderness appreciated. No fluid wave. Possible mass palpated in the inferior lower R quadrant.. MUSCULOSKELETAL: No cyanosis or edema. No calf tenderness. NEURO/PSYCH: Afocal. Awake, alert, and oriented x3. Speech is slightly slurred, baseline per report. Normal judgment.. Pelvic Exam: With nurse present, external genitalia WNL with no signs of bleeding. Speculum inserted with attempt to visualize cervix, however cervix has been displaced due to fungating mass around 12-2 o'clock. Piece of mass was friable and able to be taken for pathology. 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 Laboratory Laboratory Tests Test 08/15/17 11:38 08/15/17 13:09 08/15/17 15:25 08/15/17 16:10 Blood Urea Nitrogen 8 Creatinine 1.03 Random Glucose 303 Total Protein 8.4 Albumin 2.5 Calcium Level 8.9 Alkaline Phosphatase 141 Aspartate Amino Transf (AST/SGOT) 10 Alanine Aminotransferase (ALT/SGPT) 11 Total Bilirubin 0.7 Sodium Level 130 Potassium Level 4.2 Chloride Level 98 Carbon Dioxide Level 22.9 Anion Gap 9 Estimat Glomerular Filtration Rate 66 Iron Level 12 Total Iron Binding Capacity 183 Percent Iron Saturation 6.5 Ferritin 152 Lipase 41 Vitamin B12 Level 526 Folate 6.1 Thyroid Stimulating Hormone 3rd Gen 0.417 White Blood Count 13.2 Red Blood Count 3.16 Hemoglobin 9.5 Hematocrit 27.4 Mean Corpuscular Volume 86.6 Mean Corpuscular Hemoglobin 30.0 Mean Corpuscular Hemoglobin Concent 34.7 Red Cell Distribution Width 14.4 Platelet Count 459 Mean Platelet Volume 6.5 Neutrophils (%) (Auto) 97.4 Lymphocytes (%) (Auto) 1.7 Monocytes (%) (Auto) 0.7 Eosinophils (%) (Auto) 0.1 Basophils (%) (Auto) 0.1 Neutrophils # (Auto) 12.8 Lymphocytes # (Auto) 0.2 Monocytes # (Auto) 0.1 Eosinophils # (Auto) 0.0 Basophils # (Auto) 0.0 CBC Comment AUTO DIFF Differential Total Cells Counted 100 Neutrophils % (Manual) 71 Band Neutrophils % 25 Lymphocytes % 4 Neutrophils # (Manual) 12.7 Differential Comment FINAL DIFF MANUAL Platelet Estimate HIGH Platelet Morphology Comment NORMAL Red Cell Morphology Comment NORMAL Lactic Acid Level 2.2 1.7 Urine Color YELLOW Urine Turbidity CLOUDY Urine pH 5.0 Urine Specific [place] 1.009 Urine Protein TRACE Urine Glucose (UA) NEG Urine Ketones NEG Urine Occult Blood TRACE Urine Nitrite NEG Urine Bilirubin NEG Urine Urobilinogen LESS THAN 2.0 Urine Leukocyte Esterase LARGE Urine RBC 1 Urine WBC 25 Urine Bacteria MANY Microscopic Urinalysis Comment CULTURE INDICATED Test 08/16/17 00:07 08/16/17 03:40 Hemoglobin 7.6 7.2 Hematocrit 20.4 21.8 White Blood Count 16.9 Red Blood Count 2.56 Mean Corpuscular Volume 85.3 Mean Corpuscular Hemoglobin 28.3 Mean Corpuscular Hemoglobin Concent 33.2 Red Cell Distribution Width 14.2 Platelet Count 342 Mean Platelet Volume 6.5 Neutrophils (%) (Auto) 94.5 Lymphocytes (%) (Auto) 3.0 Monocytes (%) (Auto) 2.3 Eosinophils (%) (Auto) 0.0 Basophils (%) (Auto) 0.2 Neutrophils # (Auto) 16.0 Lymphocytes # (Auto) 0.5 Monocytes # (Auto) 0.4 Eosinophils # (Auto) 0.0 Basophils # (Auto) 0.0 CBC Comment DIFF FINAL Differential Comment Blood Urea Nitrogen 10 Creatinine 0.93 Random Glucose 157 Calcium Level 8.0 Sodium Level 142 Potassium Level 3.0 Chloride Level 108 Carbon Dioxide Level 21.9 Anion Gap 12 Estimat Glomerular Filtration Rate 74 Date/Time Source Procedure Growth Status 08/15/17 13:09 Blood Peripheral Aerobic Blood Culture Pending Received 08/15/17 13:09 Blood Peripheral Anaerobic Blood Culture Pending Received 08/15/17 15:25 Urine Clean Catch Urine Culture Pending Received Result Diagram: 08/16/17 0340 08/16/17 0340 Imaging Last 72 hours Impressions Chest X-Ray 08/15/17 1138 Signed Impressions: Service Date/Time: Tuesday, August 15, 2017 11:52 - CONCLUSION: No acute disease. Mayco Lazo MD Abdomen/Pelvis CT 08/15/17 0000 Signed Impressions: Service Date/Time: Tuesday, August 15, 2017 15:53 - CONCLUSION: 1. Grossly abnormal uterus with a large heterogeneous lower uterine segment which appears to be causing obstruction to the body of the uterus. Neoplastic disease of the lower uterus and/or cervix are the primary considerations. 2. The rest of the abdomen/pelvis is stable compared to the prior exam. Joaquín Leonard MD Assessment and Plan Problem List: (1) Abdominal pain ICD Codes: R10.9 - Unspecified abdominal pain Status: Acute (2) Bleeding ICD Codes: R58 - Hemorrhage, not elsewhere classified Status: Acute Assessment and Plan Ms. Salmeron is a 62-year-old female admitted for urosepsis and possible GI bleed found to have abnormal uterus on abdominal CT with reported vaginal bleeding of less than 1 week. 1. Abnormal uterine imaging -Abdominal CT: In the lower uterine segment there is a large heterogeneous and irregular mass measuring approximately 6.9 x 8.1 cm. The uterus is diffusely enlarged and there appears to be fluid in the endometrial cavity suggested of obstructed uterus. These findings would be highly suspicious of neoplastic disease. -Complete transvaginal ultrasound with Doppler ordered -Pelvic exam as above -Tissue obtained from pelvic exam sent for pathology -Consult placed to [facility], Dr. Marks for further management 2. Vaginal/GI bleeding -Patient unable to clearly identify per her report vaginal versus rectal bleeding -Stool guaiac positive, GI consulted -H/H 7.2/21.8, transfusion ordered -Iron studies ordered 3. Urosepsis -Patient met severe sepsis criteria at admission -Due to the size of the mass, possible intermittent ureter obstruction leading to infection -UA with large leukocyte, 25 WBC, many bacteria, esterase and trace occult blood -Urine and blood cultures pending -Zosyn ordered SDW: Dr. Santizo Discussed Condition With Dr. Santizo, [facility] Discharge Planning Per primary Problem Qualifiers (1) Abdominal pain: Qualified Codes: R10.30 - Lower abdominal pain, unspecified Avi Kiser MD R2 Aug 16, 2017 09:16
--- NOTE | 2017-08-16 12:04 | HHI.PR ---
Subjective Remarks Follow-up sepsis/UTI/GI bleed/Cervical cancer 08/16/17-patient seen and examined, continues to report blood in her stool. NPO pending evaluation from GI. case discussed with Medical Services Coordinator regarding finding of cervical cancer Objective Vitals Vital Signs Date Time Temp Pulse Resp B/P (MAP) Pulse Ox O2 Delivery O2 Flow Rate FiO2 08/16/17 09:56 96.3 84 18 90/53 08/16/17 08:00 98.6 90 16 93/51 (65) 96 08/16/17 05:27 21 08/16/17 04:00 100.2 102 20 99/48 (65) 95 08/16/17 01:11 101.1 08/16/17 00:08 111 08/16/17 00:00 102.1 108 20 106/56 (73) 93 08/15/17 20:00 97.8 86 18 103/58 (73) 96 08/15/17 18:23 98.6 93 18 99/58 (72) 95 08/15/17 17:47 88 18 91/51 (64) 99 Room Air 08/15/17 14:57 100.2 08/15/17 12:59 114 19 119/58 (78) 96 Room Air I/O 08/15/17 08/15/17 08/15/17 08/16/17 08/16/17 08/16/17 07:00 15:00 23:00 07:00 15:00 23:00 Intake Total 100 ml 1000 ml 105 ml Output Total 1400 ml Balance 100 ml -400 ml 105 ml Intake IV Total 100 ml 1000 ml 100 ml Blood Product IV Normal Saline Flush 5 ml Output Urine Total 1400 ml # Bowel Movements 3 # Sanitary Pads 1 Pads 1 Pads Result Diagram: 08/16/17 0340 08/16/17 0340 Imaging Last Impressions Chest X-Ray 08/15/17 1138 Signed Impressions: Service Date/Time: Tuesday, August 15, 2017 11:52 - CONCLUSION: No acute disease. Mayco Lazo MD Abdomen/Pelvis CT 08/15/17 0000 Signed Impressions: Service Date/Time: Tuesday, August 15, 2017 15:53 - CONCLUSION: 1. Grossly abnormal uterus with a large heterogeneous lower uterine segment which appears to be causing obstruction to the body of the uterus. Neoplastic disease of the lower uterus and/or cervix are the primary considerations. 2. The rest of the abdomen/pelvis is stable compared to the prior exam. Joaquín Leonard MD Objective Remarks GENERAL: NAD SKIN: Warm and dry. HEAD: Normocephalic. EYES: No scleral icterus. No injection or drainage. NECK: Supple, trachea midline. No JVD or lymphadenopathy. CARDIOVASCULAR: Regular rate and rhythm without murmurs, gallops, or rubs. RESPIRATORY: Breath sounds equal bilaterally. No accessory muscle use. GASTROINTESTINAL: Abdomen soft, non-tender, nondistended. MUSCULOSKELETAL: No cyanosis, or edema. BACK: Nontender without obvious deformity. No CVA tenderness. A/P Problem List: (1) GI bleeding ICD Code: K92.2 - Gastrointestinal hemorrhage, unspecified (2) Sepsis ICD Code: A41.9 - Sepsis, unspecified organism Status: Acute (3) UTI (urinary tract infection) ICD Code: N39.0 - Urinary tract infection, site not specified Status: Acute Assessment and Plan 62 year-old female with sepsis UTI -Continue IV Zosyn pending culture reports GIB Symptomatic anemia -GI consultation pending for evaluation for possible Panendoscopy -Protonix 40mg IV BID -Transfuse 1 unit PRBC -serial H/H -avoid anticoagulants Iron deficiency anemia Will transfuse Venofer when stable Abnormal uterine bleeding Likely Cervical cancer 3A -CT abd/pelvis reveals grossly abnormal uterus with large heterogeneous lower uterine segment which appears to be causing obstruction to the body of the uterus. Neoplastic disease of the lower uterus and cervix are primary considerations. -Case discussed with Medical Services Coordinator regarding what is possible Cervical stage 3A cancer pending histology report -Will Consult Medical Services Coordinator Onc MIK on ?CKD -Renal indices improving with IVF hydration -Avoid nephrotoxic agent Diabetes - A1c level pending. Previous A1c 8.2 10/03/15. -accu check and ISS Hypertension -due to low BP, will continue to hold BP Asthma/COPD, not in acute exacerbation -DuoNeb's when necessary DVT prophylaxis -Avoid chemoprophylaxis secondary to GI bleed -bilateral SCD/DENISE hose Problem Qualifiers (1) Sepsis: Qualified Codes: A41.9 - Sepsis, unspecified organism (2) UTI (urinary tract infection): Qualified Codes: N39.0 - Urinary tract infection, site not specified Mayco Adams MD Aug 16, 2017 12:04
--- NOTE | 2017-08-16 12:40 | RADRPT ---
EXAM DATE/TIME: 08/16/2017 10:39 [facility] COMPARISON: CT ABDOMEN & PELVIS W CONTRAST, August 15, 2017, 15:53. INDICATIONS : Vaginal Bleeding. MEDICAL HISTORY : Ulcers. Hypertension. Chronic obstructive pulmonary disease. Asthma. Diabetes. SURGICAL HISTORY : Tonsillectomy. Cataract Surgery. Laparoscopic repair of perforated ulcer. ENCOUNTER: Initial ACUITY: 3 months PAIN SCORE: 2/10 LOCATION: Bilateral pelvis MEASUREMENTS: UTERUS: 16.8 x 8.3 x 6.2 cm ENDOMETRIAL STRIPE: >20 mm RIGHT OVARY: Not visualized. cm LEFT OVARY: 3.3 x 1.6 x 1.9 cm FINDINGS: UTERUS: Mass in the region of the cervix measures 8.0 x 7.8 x 6.0 cm. Complex fluid seen within the endometri um which appears prominent likely obstructed by large cervical mass. There is some prominent adenopat hy along the left pelvic sidewall measuring 3.0 x 3.5 cm. RIGHT OVARY: Ovary contains no mass or significant cystic lesion. LEFT OVARY: Ovary contains no mass or significant cystic lesion. MISCELLANEOUS: No free fluid. CONCLUSION: 1. Large mass as described above likely cervical malignancy. 2. There is some prominent adenopathy along the left pelvic sidewall as seen on recent CT scan. 3. Ovaries appear unremarkable. Mayco Lazo MD on August 16, 2017 at 12:33 Board Certified Radiologist. This report was verified electronically.
--- NOTE | 2017-08-16 13:35 | PD.CONS ---
History & Physical H&P DIVISION FIELD INSPECTOR consult Patient is a 62-year-old black female with postmenopausal bleeding, admitted for urosepsis and consulted DIVISION FIELD INSPECTOR because of mass seen on CT scan. On that CT scan there is a large irregular shaped mass in the lower uterine segment seems to be obstructing the cervical canal because apparent hematometra noted with enlarged uterus because of that also the mass appears to extend posteriorly and the sidewalls bilaterally. Exam--small amount of blood seen at the introitus external genitalia within normal limits speculum exam done which shows a cervix is been replaced by a necrotic tumor with viable tumor at 12:00 and its exophytic. 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 Marks already, patient needs ureteral stents to protect the passage of the ureter through the pelvis if it cannot be stented than nephrostomy tubes are needed, patient will very likely need external and internal pelvic radiation and chemotherapy. All the above was discussed with her admitting attending Dr. Angie Santizo,Tomas Wheeler II, MD Aug 16, 2017 13:35
--- NOTE | 2017-08-16 14:14 | MB ---
cc: Anai Marks MD,Mayco Mac MD, MD DATE OF CONSULT: 08/16/2017 PHYSICIAN REQUESTING CONSULTATION: Tomas Santizo MD REASON FOR CONSULTATION: Suspicion for cervical cancer. HISTORY OF PRESENT ILLNESS: This is a 62-year-old female whose history is obtained from what is available in the record as well as from conversation with her and her family member. She herself is not a detailed historian. Her history is such that she recalls having bleeding that was heavy a day or so prior to hospital admission, be it vaginal or be it rectal or both, she is unclear. Upon further questioning about bleeding prior to that, she does state that she has had a discharge or maybe a bloody discharge that has been going on for some undetermined period of time, but that it changed to heavier bleeding and it was not until she had heavier bleeding that that raised her concern. She has also been feeling poorly; some burning with urination, some discomfort in the pelvis and for these reasons sought further evaluation. She is admitted now to the hospital. Initial objective findings suggest a urine that appears to be infected and indeed cultures from urine are positive for Gram negative rods. She was febrile to a maximum of 102.8 degrees upon admission with an initial admission diagnosis of urosepsis. White count has been elevated to 16.9. Additional findings are that of significant anemia. After hydration, her H and H were 7.2 and 21.8 and she is undergoing transfusion at this time. Abnormalities on exam led to imaging, which included chest x-ray, which shows no acute disease. CAT scan of abdomen and pelvis show a significant mass effect replacing the cervix and lower uterine segment. The uterus appears to be dilated with probable blood in the cavity. There is an 8 cm wide, irregular mass extending essentially from the cervix bilaterally to the pelvic sidewalls. It is approximately 7.5 cm in height and the borders are irregularly defined. Dr. Santizo performed an exam. He described extensive tumor replacing the cervix and upper vagina and extending to the parametria, quite possibly pelvic sidewalls. On exam, he was able to obtain a small piece of tissue that he has sent for histopathologic evaluation. He contacted me, summarized his findings with concern that this represented extensive cervical cancer and he asked for cake washer/oncology consultation and she is seen now in consultation for further evaluation and recommendations regarding these findings. PAST MEDICAL HISTORY: What is known is she did have a history of a perforated ulcer which was repaired laparoscopically. Has a history of asthma, COPD. PAST SURGICAL HISTORY: Repair of perforated ulcer. She has had bilateral cataract surgery. She has had tonsils and adenoids removed as a child. She denies any other abdominal surgery. OBSTETRIC/GYNECOLOGIC HISTORY: Two pregnancies, 2 vaginal deliveries. She has not had a gynecologic exam or Pap smear, she estimates for perhaps 30 years since the of her last child. SOCIAL HISTORY: She smokes 1 pack per day. Denies other substance abuse. No tobacco use. ALLERGIES: NO KNOWN DRUG ALLERGIES. MEDICATIONS: Norvasc, [place], Colace, Protonix. REVIEW OF SYSTEMS: Is as per history of present illness. She does not divulge any other troublesome symptoms. Upon asking, though, on exam, she does state that her lower back is at times painful. She denies having an obviously upset stomach. No nausea or vomiting. No recent change in her appetite, energy, or weight to which she has noticed. PHYSICAL EXAMINATION: VITAL SIGNS: At the present time she is afebrile, temp 97 degrees, pulse 81, respirations 17, blood pressure 106/62, O2 saturation is 98%. GENERAL: She is resting comfortably at this time, in no acute distress. Appears to feel poorly, but no respiratory or cardiac compromise. She is seen, examined, and counseled while a family member is in the room (a daughter and her beautiful young granddaughter, who is sleeping soundly). LYMPH NODE SURVEY: Negative. HEENT: Mucous membranes are dry and pale. Pupils equal, round, and reactive to light. NECK: Nontender. LUNGS: Clear at apices. Mild rales at the bases. CARDIOVASCULAR: Distant S1 and S2. It seems regular rate and rhythm. BACK: No spinal point tenderness. There may be some mild to moderate CVA tenderness bilaterally. ABDOMEN: Nonacute, nontender. There are well-healed laparoscopic incisions. There is no rebound or guarding. There is no obvious mass effect in the abdomen. No tenderness in the lower midabdomen. PELVIC: She graciously allowed repeat exam, even though she has gone through exam, so a nurse was obtained to assist in the room. Digital pelvic exam was performed. There was no obvious inguinal adenopathy. External genitalia without mass or lesion. There is blood visible on the vivian underneath her pelvic region. Bimanual exam reveals a large, palpable, irregular necrotic tumor that has replaced the cervix, has replaced the upper vagina, extends along the upper one-third of the vagina ventrally and on the left side and posteriorly, it seems to extend along the upper half of the vaginal wall. There is obvious parametrial extension with what feels like extension of the tumor to the pelvic sidewall bilaterally. EXTREMITIES: Nonfocal. No palpable cords. NEUROVASCULAR: Intact. No significant edema. Time was spent in discussing with her and her family member, reviewing the findings in her case to date, the reason for cake washer/oncology consultation is explained. I summarized the findings on CAT scan, labs, cultures, explained the reason for consultation with an oncologist. First and foremost, I clarified her wishes that if indeed a cancer is confirmed, is she in favor of taking steps to try to treat this cancer and I explained that in all certainty it would require radiation, we may recommend chemotherapy during radiation to help the radiation work better, we may recommend a venous access port during treatment. Furthermore, I explained why hysterectomy would not fix this problem, would not be able to address this problem. Many questions were asked and answered. An overview of treatment schedule, what to expect, was discussed, understanding that there will be more discussions with more details as we move forward. She expressed good understanding, as did her daughter, and they would like to move forward with any additional evaluation and recommendations to address these problems. I explained that we may want to see resolution of her urosepsis, make sure she has been on antibiotics for a number of days with no persistent fevers before placing the venous access port, but I will go ahead and consult radiation oncology. I will also have one of our oncology nurses come give preliminary discussion about chemotherapy, realizing that treatment may not be started initially until the infection can be resolved. It was also explained that the tumor may be indirectly or directly contributing to the infection; whereas there is no significant hydronephrosis, there is clearly tumor extending to the pelvic sidewalls which may be compromising the ureters to some extent, resulting in urostasis and increased risk of infection so that treatment of the tumor may help reduce chance of infections as well. More questions were asked and answered. They were grateful for the time spent talking with them. ASSESSMENT: 1. Urosepsis. Intravenous hydration and broad-spectrum antibiotics. Cultures positive for Escherichia coli. 2. Transfusion-dependent anemia. Definite vaginal bleeding, possible gastrointestinal bleeding in addition with ongoing evaluation and management, currently being transfused. 3. Large tumor of probable cervical tumor, replacing tumor upper vagina, parametria, and extending to pelvic sidewalls. Tissue has been sent for histopathology with results pending. 4. Extensive discussion. PLAN: 1. Consult radiation oncology for education, evaluation, and management, pelvic and possibly para-aortic radiation for what clinically seems most consistent with a stage IIIb cervical cancer. 2. Await histopathologic results to confirm the clinical findings, but move forward with steps in preparation of anticipated treatment. 3. When urosepsis is resolved, consider venous access port placement. 4. Chemotherapy teaching. Weekly Cisplatin chemotherapy during radiation treatment. 5. Continue present management. Thank you for the consultation. We will follow along in the care. MD JADYN Hoyt/RONALD , 01:23 PM , 02:12 PM
--- NOTE | 2017-08-16 14:35 | PD.CONS ---
HPI History of Present Illness This is a 62 year old female who presented with rectal and vaginal bleeding. Onset 1 week ago. She was having lower abd pain but is not having any currently. She was having rectal bleeding after BM. She is sure that it was rectal bleeding in addition to vaginal bleeding. She thinks she has lost weight but cannot say how much. CT showed abnormal uterus. She was found to have a necrotic tumor on her cervix with pathology squamous cell carcinoma and concern for urosepsis. She has never had EGD or colonoscopy. (Yazmin Ashraf) PFSH Past Medical History Asthma/COPD Hx of perforated ulcer Hypertension Diabetes Past Surgical History Cataract surgery Laparoscopic repair of perforated ulcer Tonsillectomy (Yazmin Ashraf) Coded Allergies: No Known Allergies (Unverified Allergy, Unknown, 08/15/17) Family History Patient is adopted Social History Patient has a history of tobacco use of one to 2 packs per day for many years but quit 1 year ago. She denies any alcohol use. She denies any illicit drug use. She lives with her daughter who is 43. (Yazmin Ashraf) Review of Systems Constitutional: COMPLAINS OF: Weight loss, DENIES: Fever Endocrine: DENIES: Polydipsia Eyes: DENIES: Blurred vision Ears, nose, mouth, throat: DENIES: Hearing loss Respiratory: DENIES: Cough Cardiovascular: DENIES: Chest pain Gastrointestinal: COMPLAINS OF: Bloody stools, DENIES: Abdominal pain, Black stools, Nausea, Vomiting Genitourinary: DENIES: Hematuria Musculoskeletal: DENIES: Joint Swelling Integumentary: DENIES: Abnormal pigmentation Hematologic/lymphatic: DENIES: Bruising Immunologic/allergic: DENIES: Eczema Neurologic: DENIES: Abnormal gait Psychiatric: DENIES: Confusion (Yazmin Ashraf) GI Exam Vitals I&O Vital Signs Date Time Temp Pulse Resp B/P (MAP) Pulse Ox O2 Delivery O2 Flow Rate FiO2 08/16/17 12:00 97.1 81 17 106/62 (77) 98 08/16/17 10:40 97.1 81 17 106/62 98 08/16/17 09:56 96.3 84 18 90/53 08/16/17 08:00 98.6 90 16 93/51 (65) 96 08/16/17 05:27 21 08/16/17 04:00 100.2 102 20 99/48 (65) 95 08/16/17 01:11 101.1 08/16/17 00:08 111 08/16/17 00:00 102.1 108 20 106/56 (73) 93 08/15/17 20:00 97.8 86 18 103/58 (73) 96 08/15/17 18:23 98.6 93 18 99/58 (72) 95 08/15/17 17:47 88 18 91/51 (64) 99 Room Air 08/15/17 14:57 100.2 I/O 08/15/17 08/15/17 08/15/17 08/16/17 08/16/17 08/16/17 07:00 15:00 23:00 07:00 15:00 23:00 Intake Total 100 ml 1000 ml 105 ml Output Total 1400 ml Balance 100 ml -400 ml 105 ml Intake IV Total 100 ml 1000 ml 100 ml Blood Product IV Normal Saline Flush 5 ml Output Urine Total 1400 ml # Bowel Movements 3 # Sanitary Pads 1 Pads 1 Pads Imaging Last Impressions Abdomen/Pelvis/Transvag US 08/16/17 0000 Signed Impressions: Service Date/Time: Wednesday, August 16, 2017 10:39 - CONCLUSION: 1. Large mass as described above likely cervical malignancy. 2. There is some prominent adenopathy along the left pelvic sidewall as seen on recent CT scan. 3. Ovaries appear unremarkable. Mayco Lazo MD Chest X-Ray 08/15/17 1138 Signed Impressions: Service Date/Time: Tuesday, August 15, 2017 11:52 - CONCLUSION: No acute disease. Mayco Lazo MD Abdomen/Pelvis CT 08/15/17 0000 Signed Impressions: Service Date/Time: Tuesday, August 15, 2017 15:53 - CONCLUSION: 1. Grossly abnormal uterus with a large heterogeneous lower uterine segment which appears to be causing obstruction to the body of the uterus. Neoplastic disease of the lower uterus and/or cervix are the primary considerations. 2. The rest of the abdomen/pelvis is stable compared to the prior exam. Joaquín Leonard MD Laboratory Test 08/15/17 15:25 08/15/17 16:10 3/7/18 00:07 08/16/17 03:40 Urine Color YELLOW Urine Turbidity CLOUDY Urine pH 5.0 Urine Specific Lewis 1.009 Urine Protein TRACE mg/dL Urine Glucose (UA) NEG mg/dL Urine Ketones NEG mg/dL Urine Occult Blood TRACE Urine Nitrite NEG Urine Bilirubin NEG Urine Urobilinogen LESS THAN 2.0 MG/DL Urine Leukocyte Esterase LARGE Urine RBC 1 /hpf Urine WBC 25 /hpf Urine Bacteria MANY /hpf Microscopic Urinalysis Comment CULTURE INDICATED Lactic Acid Level 1.7 mmol/L Hemoglobin 7.6 GM/DL 7.2 GM/DL Hematocrit 20.4 % 21.8 % White Blood Count 16.9 TH/MM3 Red Blood Count 2.56 MIL/MM3 Mean Corpuscular Volume 85.3 FL Mean Corpuscular Hemoglobin 28.3 PG Mean Corpuscular Hemoglobin Concent 33.2 % Red Cell Distribution Width 14.2 % Platelet Count 342 TH/MM3 Mean Platelet Volume 6.5 FL Neutrophils (%) (Auto) 94.5 % Lymphocytes (%) (Auto) 3.0 % Monocytes (%) (Auto) 2.3 % Eosinophils (%) (Auto) 0.0 % Basophils (%) (Auto) 0.2 % Neutrophils # (Auto) 16.0 TH/MM3 Lymphocytes # (Auto) 0.5 TH/MM3 Monocytes # (Auto) 0.4 TH/MM3 Eosinophils # (Auto) 0.0 TH/MM3 Basophils # (Auto) 0.0 TH/MM3 CBC Comment DIFF FINAL Differential Comment Blood Urea Nitrogen 10 MG/DL Creatinine 0.93 MG/DL Random Glucose 157 MG/DL Calcium Level 8.0 MG/DL Sodium Level 142 MEQ/L Potassium Level 3.0 MEQ/L Chloride Level 108 MEQ/L Carbon Dioxide Level 21.9 MEQ/L Anion Gap 12 MEQ/L Estimat Glomerular Filtration Rate 74 ML/MIN Date/Time Source Procedure Growth Status 08/15/17 13:09 Blood Peripheral Aerobic Blood Culture - Preliminary NO GROWTH IN 1 DAY Resulted 08/15/17 13:09 Blood Peripheral Anaerobic Blood Culture - Preliminary NO GROWTH IN 1 DAY Resulted 08/15/17 15:25 Urine Clean Catch Urine Culture - Preliminary Gram Negative Henri Resulted Physical Examination HEENT: PERRL; normocephalic; atraumatic; no jaundice. CHEST: CTA CARDIAC: RRR ABDOMEN: Soft, mildly distended, nontender; no hepatosplenomegaly; bowel sounds are present in all four quadrants. EXTREMITIES: No clubbing, cyanosis, or edema. SKIN: Normal; no rash; no jaundice. JOINT SUPERVISOR: No focal deficits; alert and oriented times three. (Yazmin Ashraf) Assessment and Plan Plan ASSESSMENT - rectal bleeding - 1 week of vaginal and rectal bleeding, pt notes rectal bleeding after BM. No black tarry stool. never had EGD or colonoscopy - anemia - 2/2 blood lost. normocytic. hgb 7.2. 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 Procedure explained. Will proceed in AM. Thank you for the consult. (Adrian Bravo MD) Yazmin Ashraf Aug 16, 2017 14:35 Adrian Bravo MD Aug 17, 2017 06:41
--- NOTE | 2017-08-16 14:52 | EKG ---
Date Performed: 08/15/2017 Time Performed: 12:55:49 PTAGE: 62 years EKG: SINUS TACHYCARDIA PREVIOUS TRACING : 09/29/2015 19.55 DOCTOR: Edgar Reich Interpretating Date/Time 08/16/2017 14:51:17
[2017-08-16] MEDS ORDERED: MAGNESIUM CITRATE SOLN 300 ML BTL PO ONE ×2 (16:15→18:15)
[2017-08-16 16:36] LABS: HEMATOCRIT 25.5 % (35.0-46.0); HEMOGLOBIN 8.7 GM/DL (11.6-15.3)
[2017-08-16] MEDS ORDERED: POTASSIUM CHLORIDE 20 MEQ CONTROLLED RELEASE TAB PO ONE (18:00)
--- NOTE | 2017-08-16 18:13 | MB ---
cc: Sergio Mackenzie MD,Anai Santizo,Tomas Adams,Mayco POP DATE OF CONSULT: 08/16/2017 REASON FOR CONSULTATION: Apparent extensive cervical cancer. BRIEF HISTORY OF PRESENT ILLNESS: This a 62-year-old female who was admitted to the hospital with a diagnosis of urosepsis. She had a temperature of 102.8 with Gram-negative rods in her urine. She also gives a history of vaginal bleeding or spotting. She is very unclear of whether this is rectal or vaginal but it has been going on for several months. Because of urinary symptoms, she was seen in the hospital and subsequently admitted. Workup while in the hospital has included blood work which revealed a hemoglobin at presentation of 9.5 but the following day with hydration 7.6, which repeated was 7.2 and she has since undergone a blood transfusion. Her white count presented at 13.2 and yesenia to 16.9. Her chemistry; however, revealed normal sodium with a potassium of 3. Her creatinine was 0.9 and her BUN was 10. She also underwent imaging including a chest x-ray which was considered negative but a CT scan of her abdomen and pelvis revealed grossly abnormal uterus with a large heterogenous lower uterine segment which appears to be causing obstruction of the body of the uterus. This was through to be neoplastic and measured at least 8 cm in diameter. Additionally, she underwent an abdominal pelvis transvaginal ultrasound which recorded a mass in the region of the cervix measuring 8 x 7.8 x 6 cm. There is some prominent adenopathy along the left pelvic sidewall measuring 3 x 3.5 cm. She has been examined pelvically by Dr. Anai Marks who reports no obvious inguinal adenopathy. External genitalia were normal. Bimanual exam revealed a large palpable irregular necrotic tumor that has replaced the cervix and the upper vagina extending along the upper one-third of the vagina ventrally and on the left side posteriorly. It seems to extend along the upper half of the vaginal wall. There is obvious parametrial extension which appeared to extend to the sidewalls. He characterized her disease as IIIb. Because of the question of rectal bleeding, it is my understanding that she has been seen by GI with consideration of a more detailed exam that is scheduled for tomorrow. As well, some tissue has been obtained from her cervix and the pathology result has not yet been produced but there is an assumption that this is a cervical cancer. PAST MEDICAL AND SURGICAL HISTORY: Includes a history of asthma/COPD, previous perforated ulcer requiring surgery, hypertension, diabetes, previous cataracts with surgery, tonsillectomy. ALLERGIES: NO KNOWN ALLERGIES. MEDICATIONS: Have included Protonix, Norvasc, [place] 5/325 and Colace. SOCIAL AND FAMILY HISTORY: This lady currently lives with her daughter. She has had 2 children. She does not give a history of recent pelvic exams. She does smoke a package of cigarettes a day. REVIEW OF SYSTEMS: Unfortunately this lady is a poor historian. Her only complaints are related to her presenting symptoms of vaginal and possible rectal bleeding, urinary frequency with burning and a general feeling of being unwell. She denies specific cardiovascular, respiratory, eye, ear, nose or throat, GI, , hematologic, endocrine or other complaints. PHYSICAL EXAMINATION: GENERAL: Today on exam this lady was alert and oriented. She appeared to be in no distress. VITAL SIGNS: As documented in the chart reveal that she is afebrile with a pulse of 84 and regular, respiratory rate of 16, blood pressure 102/62 and an O2 sat of 95% on room air. HEAD AND NECK: There was no jaundice. Her conjunctivae and eyelids were normal. There is no adenopathy in her head and neck. CHEST: Her lung frances were clear without effusion. CARDIAC: Her heart sounds were normal without murmurs, rubs or bruits. ABDOMEN: There are no masses, tenderness or hepatosplenomegaly. PELVIC: I did not repeat a pelvic exam. This is well documented in her chart. EXTREMITIES: There was no ankle edema. DISCUSSION: I have reviewed with this lady our concern that she has a cervical cancer. We do, of course, need to await the pathology report. If this is indeed, a cervical cancer, she will require combination of radiation treatment and chemotherapy and I should mention I have discussed this in detail with Dr. Marks today. She has very extensive disease. On my review of the CT scan of the abdomen and pelvis, I have some concern that she may have periaortic adenopathy as well and it would be good to have a PET scan of her abdomen and pelvis on an outpatient basis. I have briefly discussed radiation treatment with her. There were no family members present but I have discussed how radiation is delivered as well as the potential acute side effects. We have discussed fatigue, nausea, diarrhea, and urinary symptomatology. I briefly discussed both external beam treatment and vaginal/cervical brachytherapy should she afford a good enough response to proceed to that level of care. At this junction, we do need to wait for her urosepsis to be adequately treated. We do need to wait for the final pathology and then we can consider initiating treatment unless there were other unexpected findings. ADDENDUM - 08/21/17 This lady was seen in consultation at Dr. Marks' request. She was admitted to the hospital with urosepsis and a history of rectal bleeding. Since being in the hospital, she has been started on antibiotics. She has had a pelvic exam documenting what appears to be a cervix cancer with extension to both sidewalls placing her at stage III-B. She also had a lower colonoscopy which showed no evidence of bleeding and no pathology. She has had a biopsy performed of her cervix and that has resulted in a diagnosis of an invasive moderately differentiated squamous cell carcinoma. A CT scan of her abdomen and pelvis showed no evidence of metastatic disease and a recent MRI of her pelvis revealed a large mass arising from the uterine and cervix with obstruction of the uterus. There was obturator adenopathy on the left and no evidence of bony metastatic disease. Today, I have discussed combination radiation treatment and chemotherapy with her. I have discussed how this would be delivered as well as the potential acute symptoms. It is my anticipation that Dr. Marks will deliver chemotherapy and we will coordinate radiation treatment for her. She has agreed to this. I had attempted to bring her down to radiation treatment for simulation today, but unfortunately the schedule would not allow so we hope to do this on Monday. As she is an outpatient, we will work on coordinating that with her. We hope to have treatment started in the very near future. MD SHALONDA Go/MAXIMINO , 05:35 PM , 06:11 PM
[2017-08-16] MEDS ORDERED: LACTATED RINGER'S 1000 ML IV PRN (18:45)
[2017-08-16] MEDS ORDERED: SODIUM CHLORID 0.9% 500 ML IV PRN (18:45)
[2017-08-16] MEDS ORDERED: CHLORHEXIDINE GLUCONATE 2 % 1 PACK (2 CLOTHS) TOPICAL PRN (18:45)
[2017-08-16] MEDS ORDERED: POVIDONE IODINE 5% (ANTISEPSIS KIT) 4 APPLICATIONS EACH NARE PRN (18:45)
[2017-08-16 21:56] LABS: HEMOGLOBIN A1C 9.4 % (4.3-6.0)
[2017-08-17] VITALS (8 sets, daily range): BP systolic 107–134; BP diastolic 65–77; PULSE 73–96; RESP 16–18; TEMP 96.1–98.4; O2SAT 96–100
[2017-08-17] MEDS: PIPERACIL-TAZO 4.5 GM PREMIX 100 ML IV SCH ×4 (02:53→21:03)
[2017-08-17] MEDS: PANTOPRAZOLE SODIUM 40 MG VIAL IV PUSH SCH ×2 (04:45→17:41)
[2017-08-17 06:17] LABS: BASOPHIL % 0.3 % (0.0-2.0); EOSINOPHIL # 0.1 TH/MM3 (0-0.4); HEMATOCRIT 25.2 % (35.0-46.0); HEMOGLOBIN 8.6 GM/DL (11.6-15.3); LYMPH % 12.9 % (9.0-44.0); LYMPHOCYTE # 1.6 TH/MM3 (1.0-4.8); MEAN CELL VOLUME 85.5 FL (80.0-100.0); MEAN CORPUSCULAR HEMOGLOBIN 29.2 PG (27.0-34.0); MEAN CORPUSCULAR HGB CONC 34.1 % (32.0-36.0); MEAN PLATELET VOLUME 6.6 FL (7.0-11.0); MONO % 4.6 % (0.0-8.0); MONOCYTE # 0.6 TH/MM3 (0-0.9); NEUT % 81.2 % (16.0-70.0); PLATELET COUNT 327 TH/MM3 (150-450); RED BLOOD COUNT 2.95 MIL/MM3 (4.00-5.30); RED CELL DISTRIBUTION WIDTH 14.5 % (11.6-17.2); WHITE BLOOD COUNT 12.3 TH/MM3 (4.0-11.0)
[2017-08-17 06:42] LABS: BICARBONATE 21.3 MEQ/L (21.0-32.0); CALCIUM 7.9 MG/DL (8.5-10.1); CREATININE 0.79 MG/DL (0.50-1.00)
[2017-08-17] MEDS: INSULIN ASPART SUPPLEMENTAL SCALE SQ SCH ×4 (08:00→21:09)
[2017-08-17] MEDS: SODIUM CHLORIDE 0.9% FLUSH 10 ML FLUSH IV FLUSH SCH ×2 (08:39→21:00)
[2017-08-17] MEDS: SODIUM CHLOR 0.9% 1000 ML INJ 1,000 ML IV SCH ×2 (08:39→17:41)
--- NOTE | 2017-08-17 10:21 | GIPROC ---
[facility] [address] [facility]. [facility], [address] COLONOSCOPY PROCEDURE REPORT EXAM DATE: 08/17/2017 PATIENT NAME: Morgan Salmeron MR #: [id number] BIRTHDATE: 1955 ENDOSCOPIST: Adrian Bravo MD ORDER #: [id number] PROJECT MANAGER PROCESS DEVELOPMENT: Lucia Mahan and Keyanna Lubin STATUS: inpatient INDICATIONS: The patient is a 62 yr old female here for a colonoscopy due to an abnormal imaging results PROCEDURE PERFORMED: Colonoscopy, diagnostic MEDICATIONS: None and Per Anesthesia. PREP QUALITY: poor PREP TYPE:Magnesium Citrate ESTIMATED BLOOD LOSS: None CONSENT: The patient understands the risks and benefits of the procedure and understands that these risks include, but are not limited to: sedation, allergic reaction, infection, perforation and/or bleeding. Alternative means of evaluation and treatment include, among others: physical exam, x-rays, and/or surgical intervention. The patient elects to proceed with this endoscopic procedure. medical equipment was checked for proper function. Hand hygiene and appropriate measures for infection prevention was taken. After the risks, benefits and alternatives of the procedure were thoroughly explained, Informed consent was verified, confirmed and timeout was successfully executed by the treatment team. A digital exam revealed no abnormalities of the rectum The New [id number] (Std Gastro) and Pentax [id number] endoscope was introduced through the anus and advanced to the cecum, which was identified by both the appendix and ileocecal valve. The instrument was then slowly withdrawn as the colon was fully examined. COLON FINDINGS: The colon mucosa was otherwise normal. Retroflexed views revealed no abnormalities The scope was then completely withdrawn from the patient and the procedure terminated. PROCEDURE WITHDRAWAL TIME:9minutes ADVERSE EVENTS: There were no complications. IMPRESSIONS: 1. The colon mucosa was otherwise normal although limited by poor bowel prep. 2. Retroflexed views revealed no abnormalities RECOMMENDATIONS: 1. High fiber diet 2. Continue surveillance RECALL: Return 1 year Colonoscopy Adrian Bravo MD eSigned: Adrian Bravo MD 08/17/2017 10:20 AM cc: PATIENT NAME: Morgan Salmeron MR#: [id number]
[2017-08-17] MEDS: ACETAMINOPHEN 325 MG TAB PO PRN (11:42)
[2017-08-17] MEDS ORDERED: PROPOFOL 200 MG/20 ML AMP IV ONE (12:00)
[2017-08-17] MEDS ORDERED: LIDOCAINE HCL 1% PF 5 ML SYRINGE OTHER ONE (12:00)
--- NOTE | 2017-08-17 12:24 | HHI.PR ---
Subjective Remarks Follow-up sepsis/UTI/GI bleed/Cervical cancer 08/16/17-patient seen and examined, continues to report blood in her stool. NPO pending evaluation from GI. case discussed with Blue Prints Trimmer regarding finding of cervical cancer 08/17/17-patient seen and examined, NPO this AM pending colonoscopy. Seen yesterday by Radiation and [employer] Trimmer Onc. Afebrile Objective Vitals Vital Signs Date Time Temp Pulse Resp B/P (MAP) Pulse Ox O2 Delivery O2 Flow Rate FiO2 08/17/17 12:00 96.1 75 16 134/77 (96) 99 08/17/17 10:26 97.2 74 18 120/77 (91) 98 08/17/17 08:00 98.4 86 16 119/73 (88) 100 08/17/17 04:00 98.4 89 18 107/65 (79) 96 08/17/17 00:46 96 08/17/17 00:00 97.1 90 16 120/74 (89) 97 08/16/17 20:00 96.6 91 18 130/61 (84) 97 08/16/17 16:00 97.1 84 16 102/62 (75) 95 I/O 08/16/17 08/16/17 08/16/17 08/17/17 08/17/17 08/17/17 07:00 15:00 23:00 07:00 15:00 23:00 Intake Total 1000 ml 605 ml 2600 ml 480 ml 400 ml Output Total 1400 ml 600 ml Balance -400 ml 605 ml 2000 ml 480 ml 400 ml Intake Oral 1500 ml 480 ml IV Total 1000 ml 200 ml 1100 ml Packed Cells 400 ml Blood Product IV Normal Saline Flush 5 ml Other 400 ml Output Urine Total 1400 ml 600 ml # Voids 6 # Bowel Movements 3 2 # Sanitary Pads 1 Pads 1 Pads 4 Pads 4 Pads Result Diagram: 08/17/17 0535 08/17/17 0532 Objective Remarks GENERAL: NAD SKIN: Warm and dry. HEAD: Normocephalic. EYES: No scleral icterus. No injection or drainage. NECK: Supple, trachea midline. No JVD or lymphadenopathy. CARDIOVASCULAR: Regular rate and rhythm without murmurs, gallops, or rubs. RESPIRATORY: Breath sounds equal bilaterally. No accessory muscle use. GASTROINTESTINAL: Abdomen soft, non-tender, nondistended. MUSCULOSKELETAL: No cyanosis, or edema. BACK: Nontender without obvious deformity. No CVA tenderness. A/P Problem List: (1) GI bleeding ICD Code: K92.2 - Gastrointestinal hemorrhage, unspecified (2) Sepsis ICD Code: A41.9 - Sepsis, unspecified organism Status: Acute (3) UTI (urinary tract infection) ICD Code: N39.0 - Urinary tract infection, site not specified Status: Acute Assessment and Plan 62 year-old female with sepsis UTI -Continue IV Zosyn pending culture reports GIB Symptomatic anemia -GI ff and plan for colonoscopy today -Protonix 40mg IV BID -Transfused 1 unit PRBC -serial H/H -avoid anticoagulants Iron deficiency anemia Will transfuse Venofer when stable Abnormal uterine bleeding Likely Cervical cancer 3A -CT abd/pelvis reveals grossly abnormal uterus with large heterogeneous lower uterine segment which appears to be causing obstruction to the body of the uterus. Neoplastic disease of the lower uterus and cervix are primary considerations. -Appreciate input from [employer] Trimmer ONC, radiation ONC pending histopathology report -Likely treatment with Radiation when urosepsis resolved MIK on ?CKD -Renal indices improving with IVF hydration -Avoid nephrotoxic agent Diabetes - A1c level 9.4. Previous A1c 8.2 10/03/15. -accu check and ISS Hypertension -Resume BP Asthma/COPD, not in acute exacerbation -DuoNeb's when necessary DVT prophylaxis -Avoid chemoprophylaxis secondary to GI bleed -bilateral SCD/DENISE hose Problem Qualifiers (1) Sepsis: Qualified Codes: A41.9 - Sepsis, unspecified organism (2) UTI (urinary tract infection): Qualified Codes: N39.0 - Urinary tract infection, site not specified Mayco Adams MD Aug 17, 2017 12:24
[2017-08-17] MEDS: amLODIPine BESYLATE 5 MG TAB PO SCH (14:53)
[2017-08-18] VITALS (7 sets, daily range): BP systolic 120–147; BP diastolic 73–87; PULSE 72–82; RESP 16–18; TEMP 96.7–98.5; O2SAT 95–99
[2017-08-18] MEDS: SODIUM CHLOR 0.9% 1000 ML INJ 1,000 ML IV SCH (03:54)
[2017-08-18] MEDS: PANTOPRAZOLE SODIUM 40 MG VIAL IV PUSH SCH (03:54)
[2017-08-18] MEDS: PIPERACIL-TAZO 4.5 GM PREMIX 100 ML IV SCH ×4 (03:54→19:42)
[2017-08-18] MEDS: INSULIN ASPART SUPPLEMENTAL SCALE SQ SCH ×4 (08:00→19:41)
[2017-08-18] MEDS: amLODIPine BESYLATE 5 MG TAB PO SCH (08:56)
[2017-08-18] MEDS: SODIUM CHLORIDE 0.9% FLUSH 10 ML FLUSH IV FLUSH SCH ×2 (08:57→19:43)
--- NOTE | 2017-08-18 09:51 | MB ---
cc: Anai Marks MD,Tomas Adams,Mayco Bravo,Adrian Mackenzie,Sergio Garcia MD DATE OF CONSULT: 08/18/2017 I had a followup discussion with Morgan Salmeron, summarizing the findings in her case to date. I wanted to let her know that the biopsy taken from the cervix did confirm our clinical suspicion, as it showed it was an invasive squamous cell carcinoma. Clinically, we believe this cancer to have started in the cervix based on location and pattern of spread and I wanted to let her know that the biopsy confirmed our concerns. I reiterated again then the plan for pelvic radiation. She has already met with Dr. Montrell Mackenzie, who will initiate, direct and oversee her treatment and she remains in favor of therapy. I also again reviewed the recommendation for weekly cisplatin chemotherapy while on radiation. I explained how it enhances their response to radiation and a preliminary introduction to the medication was held, but more education will be provided, both with written information, as well as formal chemotherapy teaching session by someone from our gynecology/oncology office. I also discussed the value of a venous access port, explained how central access can help with administration of chemotherapy, fluids, blood draws and so forth without caustic effects and scarring effects on the peripheral veins if the arms were used. I put in a consult for interventional radiology to place that port but I made them aware in the consult, even though she has been afebrile now for greater than 48 hours, she is being treated with IV antibiotics for urosepsis and I will defer to their judgement as they may wish to defer placement of the port until after complete resolution of that infection. Also, once she is discharged from the hospital, I would like to ensure that she has followup in my office, hopefully within approximately 1 week after hospital discharge and I will put that request in the system as well. Discussion ensued, questions were answered, she expressed good understanding and agreed. MD JADYN Hoyt/MAXIMINO , 09:00 AM , 09:49 AM
[2017-08-18] MEDS ORDERED: GADODIAMIDE PF 287 MG/ML 20 ML VIAL (for RAD MRI) IVCONTRAST ONE (10:00)
--- NOTE | 2017-08-18 10:08 | PD.RAD ---
Radiology Note 62 Y/o with SCCA of the cervix. We are requested to place an infusaport for treatment. PT presently has an elevated WBC at 12.5 with positive blood cultures and a urinary tract infection. Port placement will delayed until the patient has cleared the infection. Humble Mitchell MD Aug 18, 2017 10:07
--- NOTE | 2017-08-18 10:11 | RADRPT ---
EXAM DATE/TIME: 08/18/2017 00:00 [facility] COMPARISON : No previous studies available for comparison. INDICATIONS : Pt. with a history of cervical cancer, consult for infusaport, pt. has positive blood cultures. ASSESSMENT: The patient is a 62-year-old with squamous of carcinoma of the cervix. We are requested to place an I [id number]. The patient has an elevated white cell count of 12.5. There presently blood cultures wh ich are positive for gram-positive cocci. The patient has a current urinary tract infection. PLAN: Port placement will be need to be delayed until the patient has been treated for the above infection. This could easily be placed on outpatient basis. TIME SPENT: 10 minutes. Humble Mitchell MD on August 18, 2017 at 10:01 Board Certified Radiologist. This report was verified electronically.
[2017-08-18] MEDS: ACETAMINOPHEN 325 MG TAB PO PRN ×2 (11:44→19:48)
[2017-08-18] MEDS ORDERED: POTASSIUM CHLORIDE 10 MEQ CONTROLLED RELEASE TAB PO ONE (12:15)
--- NOTE | 2017-08-18 12:18 | HHI.PR ---
Subjective Remarks Follow-up sepsis/UTI/GI bleed/Cervical cancer 08/16/17-patient seen and examined, continues to report blood in her stool. NPO pending evaluation from GI. case discussed with Legal Transcriber regarding finding of cervical cancer 08/17/17-patient seen and examined, NPO this AM pending colonoscopy. Seen yesterday by Radiation and Legal Transcriber Onc. Afebrile 08/18/17-patient seen and examined, Blood culture positive. Colonoscopy was negative. Afebrile Objective Vitals Vital Signs Date Time Temp Pulse Resp B/P (MAP) Pulse Ox O2 Delivery O2 Flow Rate FiO2 08/18/17 08:00 97.1 74 18 141/84 (103) 99 08/18/17 04:00 96.7 81 16 120/73 (89) 99 08/18/17 00:00 96.7 82 16 120/77 (91) 95 08/17/17 20:40 73 08/17/17 20:00 96.6 83 16 121/72 (88) 96 08/17/17 16:00 97.1 84 16 107/67 (80) 96 I/O 08/17/17 08/17/17 08/17/17 08/18/17 08/18/17 08/18/17 07:00 15:00 23:00 07:00 15:00 23:00 Intake Total 480 ml 500 ml 1300 ml 1200 ml Output Total 1000 ml Balance 480 ml 500 ml 300 ml 1200 ml Intake Oral 480 ml 1200 ml 1200 ml IV Total 100 ml 100 ml Other 400 ml Output Urine Total 1000 ml # Voids 6 2 # Bowel Movements 2 0 # Sanitary Pads 4 Pads 4 Pads Result Diagram: 08/17/17 0535 08/17/17 0532 Imaging Last Impressions Abdomen/Pelvis/Transvag US 08/16/17 0000 Signed Impressions: Service Date/Time: Wednesday, August 16, 2017 10:39 - CONCLUSION: 1. Large mass as described above likely cervical malignancy. 2. There is some prominent adenopathy along the left pelvic sidewall as seen on recent CT scan. 3. Ovaries appear unremarkable. Mayco Lazo MD Chest X-Ray 08/15/17 1138 Signed Impressions: Service Date/Time: Tuesday, August 15, 2017 11:52 - CONCLUSION: No acute disease. Mayco Lazo MD Abdomen/Pelvis CT 08/15/17 0000 Signed Impressions: Service Date/Time: Tuesday, August 15, 2017 15:53 - CONCLUSION: 1. Grossly abnormal uterus with a large heterogeneous lower uterine segment which appears to be causing obstruction to the body of the uterus. Neoplastic disease of the lower uterus and/or cervix are the primary considerations. 2. The rest of the abdomen/pelvis is stable compared to the prior exam. Joaquín Leonard MD Objective Remarks GENERAL: NAD SKIN: Warm and dry. HEAD: Normocephalic. EYES: No scleral icterus. No injection or drainage. NECK: Supple, trachea midline. No JVD or lymphadenopathy. CARDIOVASCULAR: Regular rate and rhythm without murmurs, gallops, or rubs. RESPIRATORY: Breath sounds equal bilaterally. No accessory muscle use. GASTROINTESTINAL: Abdomen soft, non-tender, nondistended. MUSCULOSKELETAL: No cyanosis, or edema. BACK: Nontender without obvious deformity. No CVA tenderness. A/P Problem List: (1) GI bleeding ICD Code: K92.2 - Gastrointestinal hemorrhage, unspecified (2) Sepsis ICD Code: A41.9 - Sepsis, unspecified organism Status: Acute (3) UTI (urinary tract infection) ICD Code: N39.0 - Urinary tract infection, site not specified Status: Acute Assessment and Plan 62 year-old female with sepsis UTI -Continue IV Zosyn pending culture reports Bacteremia GPC Repeat Blood culture Consult ID specialist 08/18/17 Add Vancomycin IV Q day and continue Zosyn GIB Symptomatic anemia colonoscopy on 08/17/17 ---->The colon mucosa was otherwise normal although limited by poor bowel prep -GI ff and -change Protonix 40mg to PO daily -Transfused 1 unit PRBC -serial H/H -avoid anticoagulants Iron deficiency anemia Will transfuse Venofer when stable Abnormal uterine bleeding Invasive Cervical cancer 3A -Histopathology report positive for invasive squamous cell carcinoma -Appreciate input from Legal Transcriber ONC, radiation ONC -Likely treatment with Radiation as well as Cisplatin chemo outpatient when urosepsis + bacteremia resolved -MRI abdomen pending today 08/18/17 -However Secondary to bacteremia, will postpone Port infusion placement MIK on ?CKD -Renal indices improving with IVF hydration -Avoid nephrotoxic agent Diabetes - A1c level 9.4. Previous A1c 8.2 10/03/15. -accu check and ISS -Start Levemir 5units HS Hypertension -Continue BP Asthma/COPD, not in acute exacerbation -DuoNeb's when necessary DVT prophylaxis -Avoid chemoprophylaxis secondary to GI bleed -bilateral SCD/DENISE hose Problem Qualifiers (1) Sepsis: Qualified Codes: A41.9 - Sepsis, unspecified organism (2) UTI (urinary tract infection): Qualified Codes: N39.0 - Urinary tract infection, site not specified Mayco Adams MD Aug 18, 2017 12:18
[2017-08-18] MEDS ORDERED: Vancomycin Consult Pharmacy 1 EA OTHER SCH (12:30)
[2017-08-18] MEDS ORDERED: VANCOMYCIN INJ 1,250 MG in SODIUM CHLOR 0.9% 250 ML INJ 250 ML IV SCH (14:00)
--- NOTE | 2017-08-18 15:17 | RADRPT ---
EXAM DATE/TIME: 08/18/2017 13:20 [facility] COMPARISON: CT ABDOMEN & PELVIS W CONTRAST, August 15, 2017, 15:53. INDICATIONS : Mass. CONTRAST: 15 cc Omniscan (gadodiamide) IV MEDICAL HISTORY : Chronic obstructive pulmonary disease. Hypertension. SURGICAL HISTORY : Tonsillectomy. Ulcer repair. ENCOUNTER: Initial ACUITY: 3 day PAIN SCORE: 3/10 LOCATION: Pelvis. TECHNIQUE: Multiplanar, multisequence magnetic resonance imaging of the pelvis was performed. FINDINGS: Large mass centered about the lower uterine segment and cervix that displaces the bladder anteriorly and to the right. The bladder is displaced rather than invaded. The uterus is obstructed. The mass does extend to the left uterine side wall with adenopathy in the left obturator region measuring 2.5 cm. This mass does efface tissue planes between the rectum and the cervix.. On the high resolution sagit jasmina images there is no rectosigmoid invasion. There doesn't appear be bladder invasion. There is no bony metastatic disease There is no inguinal adenopathy. CONCLUSION: Large mass arising most likely in the uterine cervical junction segment obstruction of the uterus. There is obturator adenopathy on the left there is pathologic. There is no bony metastatic disease. Stanton Mitchell MD FACR on August 18, 2017 at 15:10 Board Certified Radiologist. This report was verified electronically.
--- NOTE | 2017-08-18 16:59 | PD.ID.CON ---
History of Present Illness Service ID Consult Requested By Dr Adams Reason for Consult coag negative bacteremia Primary Care Physician Unknown Diagnoses: History of Present Illness Pt is a 62 yo female who presented with new onset vaginal bleeding and was found to have large pelvic mass cw advanced cervical ca Large necrotic tumor was noted druing pelvic exam by CLINICAL FACULTY She was stated on XRT and planned to have chemo for which shwe would need a PORT, but she apparentlyn had a fever in ER up to 102.8 that prompted blod clx and they were positive Both sets grew PLEOMORPHIC GRAM POSITIVE RODS and ANAEROBIC GRAM POSITIVE COCCI in anaerobic bottles 2/ She was started on vancomycin and zosyn and she is now afebrile she also presetnd with markedly abnormal UA, leukocytiossi up to 13 K and bandemia of 25 % Urine clx + for E.coli Review of Systems Constitutional: COMPLAINS OF: Fever Genitourinary: COMPLAINS OF: Abnormal vaginal bleeding Except as stated in HPI: all other systems reviewed are Neg Past Family Social History Allergies: Coded Allergies: No Known Allergies (Unverified Allergy, Unknown, 08/15/17) Past Medical History Asthma/COPD Hx of perforated ulcer Hypertension Diabetes Past Surgical History Cataract surgery Laparoscopic repair of perforated ulcer Tonsillectomy Active Ordered Medications Medications where reviewed in EMR Antibiotics Include: zosyn vancomycin Family History adopted Social History Patient has a history of tobacco use of one to 2 packs per day for many years but quit 1 year ago. She denies any alcohol use. She denies any illicit drug use. She lives with her daughter who is 43. Physical Exam Vital Signs Vital Signs Date Time Temp Pulse Resp B/P (MAP) Pulse Ox O2 Delivery O2 Flow Rate FiO2 08/18/17 13:07 72 08/18/17 12:00 97.7 76 16 135/76 (95) 99 08/18/17 08:00 97.1 74 18 141/84 (103) 99 08/18/17 04:00 96.7 81 16 120/73 (89) 99 08/18/17 00:00 96.7 82 16 120/77 (91) 95 08/17/17 20:40 73 08/17/17 20:00 96.6 83 16 121/72 (88) 96 Physical Exam CONSTITUTIONAL/GENERAL: This is an obese patient, in no apparent distress. TUBES/LINES/DRAINS: SKIN: No jaundice, rashes, or lesions. . Skin temperature appropriate. Not diaphoretic. HEAD: Atraumatic. Normocephalic. EYES: Pupils equal and round and reactive. Extraocular motions intact. No scleral icterus. No injection or drainage. Fundi not examined. ENT: Hearing grossly normal. Nose without bleeding or purulent drainage. Throat without visible erythema, exudates, masses, or lesions. Poor dentition , nearly edentulous NECK: Trachea midline. Supple, nontender. CARDIOVASCULAR: Regular rate and rhythm without murmurs, gallops, or rubs. No JVD. Peripheral pulses symmetric. RESPIRATORY/CHEST: Symmetric, unlabored respirations. Clear to auscultation. Breath sounds equal bilaterally. No wheezes, rales, or rhonchi. GASTROINTESTINAL: Abdomen soft, non-tender, distended. No hepato-splenomegaly, or palpable masses. No guarding. Bowel sounds present. GENITOURINARY: Without palpable bladder distension. MUSCULOSKELETAL: Extremities without clubbing, cyanosis, or edema. No joint tenderness or effusion noted. No calf tenderness. No mottling or clubbing. LYMPHATICS: No palpable cervical or supraclavicular adenopathy. NEUROLOGICAL: Awake and alert. Motor and sensory grossly within normal limits. Follows commands. Clear speech . Moves all extremities. PSYCHIATRIC: appears depressed Laboratory Date/Time Source Procedure Growth Status 08/15/17 13:09 Blood Peripheral Aerobic Blood Culture - Preliminary NO GROWTH IN 3 DAYS Resulted 08/15/17 13:09 Anaerobic Blood Culture - Final Pleomorphic Gram Positive Rods Anaerobic Gram Positive Cocci Resulted 08/15/17 15:25 Urine Clean Catch Urine Culture - Final Escherichia Coli Complete Result Diagram: 08/17/17 0535 08/17/17 0532 Imaging Last Impressions Pelvis MRI 08/18/17 0000 Signed Impressions: Service Date/Time: Friday, August 18, 2017 13:20 - CONCLUSION: Large mass arising most likely in the uterine cervical junction segment obstruction of the uterus. There is obturator adenopathy on the left there is pathologic. There is no bony metastatic disease. Stanton Mitchell MD FACR Abdomen/Pelvis/Transvag US 08/16/17 0000 Signed Impressions: Service Date/Time: Wednesday, August 16, 2017 10:39 - CONCLUSION: 1. Large mass as described above likely cervical malignancy. 2. There is some prominent adenopathy along the left pelvic sidewall as seen on recent CT scan. 3. Ovaries appear unremarkable. Mayco Lazo MD Chest X-Ray 08/15/17 1138 Signed Impressions: Service Date/Time: Tuesday, August 15, 2017 11:52 - CONCLUSION: No acute disease. Mayco Lazo MD Abdomen/Pelvis CT 08/15/17 0000 Signed Impressions: Service Date/Time: Tuesday, August 15, 2017 15:53 - CONCLUSION: 1. Grossly abnormal uterus with a large heterogeneous lower uterine segment which appears to be causing obstruction to the body of the uterus. Neoplastic disease of the lower uterus and/or cervix are the primary considerations. 2. The rest of the abdomen/pelvis is stable compared to the prior exam. Joaquín Leonard MD Assessment and Plan Assessment and Plan Advanced newly diagnosed cervical ca presented as vaginal bleeding from nectrotic mass Fever , high grade Bacteremia, including anaerobs - likley 2/2 infection UTI, E.coli awaiting port palcement for chemo - cont current abx - agree with postponing PORT untill clears bacteremia and fever resolves - fu blood clx untill final further abx adjustement s per clx resuilts Discussed Condition With microlab Dayana Cornejo MD Aug 18, 2017 16:59
[2017-08-18] MEDS: INSULIN DETEMIR 100 UNITS/ML VIAL SQ SCH (19:48)
[2017-08-19] VITALS (7 sets, daily range): BP systolic 133–164; BP diastolic 73–93; PULSE 60–76; RESP 17–19; TEMP 96.3–97.6; O2SAT 97–100
[2017-08-19] MEDS: ACETAMINOPHEN 325 MG TAB PO PRN ×3 (00:31→20:17)
[2017-08-19] MEDS: PIPERACIL-TAZO 4.5 GM PREMIX 100 ML IV SCH ×3 (04:10→17:01)
[2017-08-19 05:25] LABS: AUTOMATED NEUTROPHIL # 3.9 TH/MM3 (1.8-7.7); BASOPHIL % 0.6 % (0.0-2.0); EOSINOPHIL # 0.1 TH/MM3 (0-0.4); EOSINOPHIL % 1.7 % (0.0-4.0); HEMATOCRIT 24.6 % (35.0-46.0); HEMOGLOBIN 8.4 GM/DL (11.6-15.3); LYMPH % 24.1 % (9.0-44.0); LYMPHOCYTE # 1.4 TH/MM3 (1.0-4.8); MEAN CELL VOLUME 86.1 FL (80.0-100.0); MEAN CORPUSCULAR HEMOGLOBIN 29.4 PG (27.0-34.0); MEAN CORPUSCULAR HGB CONC 34.2 % (32.0-36.0); MEAN PLATELET VOLUME 6.7 FL (7.0-11.0); MONO % 8.4 % (0.0-8.0); MONOCYTE # 0.5 TH/MM3 (0-0.9); NEUT % 65.2 % (16.0-70.0); PLATELET COUNT 321 TH/MM3 (150-450); RED BLOOD COUNT 2.86 MIL/MM3 (4.00-5.30); RED CELL DISTRIBUTION WIDTH 14.3 % (11.6-17.2)
[2017-08-19 05:53] LABS: BICARBONATE 23.5 MEQ/L (21.0-32.0); CALCIUM 8.2 MG/DL (8.5-10.1); CREATININE 0.72 MG/DL (0.50-1.00)
[2017-08-19] MEDS: INSULIN ASPART SUPPLEMENTAL SCALE SQ SCH ×4 (08:00→20:18)
[2017-08-19] MEDS: SODIUM CHLORIDE 0.9% FLUSH 10 ML FLUSH IV FLUSH SCH ×2 (08:36→20:17)
[2017-08-19] MEDS: PANTOPRAZOLE SOD 40 MG DELAYED RELEASE TAB PO SCH (08:36)
[2017-08-19] MEDS: VANCOMYCIN INJ 1,250 MG in SODIUM CHLOR 0.9% 250 ML INJ 250 ML IV SCH (08:36)
[2017-08-19] MEDS: amLODIPine BESYLATE 5 MG TAB PO SCH (08:37)
--- NOTE | 2017-08-19 09:01 | HHI.PR ---
Subjective Remarks No fever or chills. Did not have a BM. No n/v/d/c. Objective Vitals Vital Signs Date Time Temp Pulse Resp B/P (MAP) Pulse Ox O2 Delivery O2 Flow Rate FiO2 08/19/17 08:00 97.0 73 18 164/86 (112) 99 08/19/17 04:00 96.3 76 18 142/78 (99) 97 08/19/17 02:00 20 08/19/17 01:05 96.9 73 18 133/93 (106) 97 08/18/17 20:27 98.5 74 18 147/87 (107) 96 08/18/17 16:00 97.8 78 18 139/77 (97) 97 08/18/17 13:07 72 08/18/17 12:00 97.7 76 16 135/76 (95) 99 I/O 08/18/17 08/18/17 08/18/17 08/19/17 08/19/17 08/19/17 07:00 15:00 23:00 07:00 15:00 23:00 Intake Total 1200 ml 1400 ml 480 ml Output Total 1300 ml 1000 ml Balance 1200 ml 100 ml -520 ml Intake Oral 1200 ml 1400 ml 480 ml Output Urine Total 1300 ml 1000 ml # Voids 2 # Bowel Movements 0 1 0 # Sanitary Pads 2 Pads Result Diagram: 08/19/17 0510 08/19/17 0510 Imaging Last Impressions Pelvis MRI 08/18/17 0000 Signed Impressions: Service Date/Time: Friday, August 18, 2017 13:20 - CONCLUSION: Large mass arising most likely in the uterine cervical junction segment obstruction of the uterus. There is obturator adenopathy on the left there is pathologic. There is no bony metastatic disease. Stanton Mitchell MD FACR Abdomen/Pelvis/Transvag US 08/16/17 0000 Signed Impressions: Service Date/Time: Wednesday, August 16, 2017 10:39 - CONCLUSION: 1. Large mass as described above likely cervical malignancy. 2. There is some prominent adenopathy along the left pelvic sidewall as seen on recent CT scan. 3. Ovaries appear unremarkable. Mayco Lazo MD Chest X-Ray 08/15/17 1138 Signed Impressions: Service Date/Time: Tuesday, August 15, 2017 11:52 - CONCLUSION: No acute disease. Mayco Lazo MD Abdomen/Pelvis CT 08/15/17 0000 Signed Impressions: Service Date/Time: Tuesday, August 15, 2017 15:53 - CONCLUSION: 1. Grossly abnormal uterus with a large heterogeneous lower uterine segment which appears to be causing obstruction to the body of the uterus. Neoplastic disease of the lower uterus and/or cervix are the primary considerations. 2. The rest of the abdomen/pelvis is stable compared to the prior exam. Joaquín Leonard MD Objective Remarks GENERAL: NAD SKIN: Warm and dry. HEAD: Normocephalic. EYES: No scleral icterus. No injection or drainage. NECK: Supple, trachea midline. No JVD or lymphadenopathy. CARDIOVASCULAR: Regular rate and rhythm without murmurs, gallops, or rubs. RESPIRATORY: Breath sounds equal bilaterally. No accessory muscle use. GASTROINTESTINAL: Abdomen soft, non-tender, nondistended. MUSCULOSKELETAL: No cyanosis, or edema. BACK: Nontender without obvious deformity. No CVA tenderness. A/P Problem List: (1) GI bleeding ICD Code: K92.2 - Gastrointestinal hemorrhage, unspecified (2) Sepsis ICD Code: A41.9 - Sepsis, unspecified organism Status: Acute (3) UTI (urinary tract infection) ICD Code: N39.0 - Urinary tract infection, site not specified Status: Acute Assessment and Plan 62 year-old female with Sepsis UTI Continue IV Zosyn pending culture reports Bacteremia GPC Repeat Blood culture and ff Consult ID specialist 08/18/17 Added Vancomycin IV Q day and continue Zosyn GIB Symptomatic anemia S/p colonoscopy on 08/17/17 ---->The colon mucosa was otherwise normal although limited by poor bowel prep GI ff change Protonix 40mg to PO daily Transfused 1 unit PRBC serial H/H avoid anticoagulants Iron deficiency anemia- transfuse Venofer when stable Abnormal uterine bleeding Invasive Cervical cancer 3A 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 Previous A1c 8.2 10/03/15. accu check and ISS Start Levemir 5units HS Monitor BS and adjust meds Hypertension-Continue BP meds, monitor and adjust as need Asthma/COPD, not in acute exacerbation -DuoNeb's when necessary DVT prophylaxis Avoid chemoprophylaxis secondary to GI bleed Bilateral SCD/DENISE hose Problem Qualifiers (1) Sepsis: Qualified Codes: A41.9 - Sepsis, unspecified organism (2) UTI (urinary tract infection): Qualified Codes: N39.0 - Urinary tract infection, site not specified Irene Elliott MD Aug 19, 2017 09:01
--- NOTE | 2017-08-19 09:59 | HHI.GIFU ---
Subjective Remarks Pt is sitting on edge of the bed, denies rectal bleeding but still having vaginal bleeding. Denies N/V or abd pain. (Judy Colvin) Objective Vitals I&O Vital Signs Date Time Temp Pulse Resp B/P (MAP) Pulse Ox O2 Delivery O2 Flow Rate FiO2 08/19/17 08:00 97.0 73 18 164/86 (112) 99 08/19/17 04:00 96.3 76 18 142/78 (99) 97 08/19/17 02:00 20 08/19/17 01:05 96.9 73 18 133/93 (106) 97 08/18/17 20:27 98.5 74 18 147/87 (107) 96 08/18/17 16:00 97.8 78 18 139/77 (97) 97 08/18/17 13:07 72 08/18/17 12:00 97.7 76 16 135/76 (95) 99 I/O 08/18/17 08/18/17 08/18/17 08/19/17 08/19/17 08/19/17 07:00 15:00 23:00 07:00 15:00 23:00 Intake Total 1200 ml 1400 ml 480 ml Output Total 1300 ml 1000 ml Balance 1200 ml 100 ml -520 ml Intake Oral 1200 ml 1400 ml 480 ml Output Urine Total 1300 ml 1000 ml # Voids 2 # Bowel Movements 0 1 0 # Sanitary Pads 2 Pads Laboratory Laboratory Tests Test 08/19/17 05:10 White Blood Count 6.0 Red Blood Count 2.86 Hemoglobin 8.4 Hematocrit 24.6 Mean Corpuscular Volume 86.1 Mean Corpuscular Hemoglobin 29.4 Mean Corpuscular Hemoglobin Concent 34.2 Red Cell Distribution Width 14.3 Platelet Count 321 Mean Platelet Volume 6.7 Neutrophils (%) (Auto) 65.2 Lymphocytes (%) (Auto) 24.1 Monocytes (%) (Auto) 8.4 Eosinophils (%) (Auto) 1.7 Basophils (%) (Auto) 0.6 Neutrophils # (Auto) 3.9 Lymphocytes # (Auto) 1.4 Monocytes # (Auto) 0.5 Eosinophils # (Auto) 0.1 Basophils # (Auto) 0.0 CBC Comment DIFF FINAL Differential Comment Blood Urea Nitrogen 3 Creatinine 0.72 Random Glucose 139 Calcium Level 8.2 Sodium Level 142 Potassium Level 3.5 Chloride Level 111 Carbon Dioxide Level 23.5 Anion Gap 8 Estimat Glomerular Filtration Rate 99 Date/Time Source Procedure Growth Status 08/18/17 20:20 Blood Peripheral Aerobic Blood Culture Pending Received 08/18/17 20:20 Blood Peripheral Anaerobic Blood Culture Pending Received 08/15/17 15:25 Urine Clean Catch Urine Culture - Final Escherichia Coli Complete Imaging Last Impressions Pelvis MRI 08/18/17 0000 Signed Impressions: Service Date/Time: Friday, August 18, 2017 13:20 - CONCLUSION: Large mass arising most likely in the uterine cervical junction segment obstruction of the uterus. There is obturator adenopathy on the left there is pathologic. There is no bony metastatic disease. Stanton Mitchell MD FACR Abdomen/Pelvis/Transvag US 08/16/17 0000 Signed Impressions: Service Date/Time: Wednesday, August 16, 2017 10:39 - CONCLUSION: 1. Large mass as described above likely cervical malignancy. 2. There is some prominent adenopathy along the left pelvic sidewall as seen on recent CT scan. 3. Ovaries appear unremarkable. Mayoc Lazo MD Chest X-Ray 08/15/17 1138 Signed Impressions: Service Date/Time: Tuesday, August 15, 2017 11:52 - CONCLUSION: No acute disease. Mayco Lazo MD Abdomen/Pelvis CT 08/15/17 0000 Signed Impressions: Service Date/Time: Tuesday, August 15, 2017 15:53 - CONCLUSION: 1. Grossly abnormal uterus with a large heterogeneous lower uterine segment which appears to be causing obstruction to the body of the uterus. Neoplastic disease of the lower uterus and/or cervix are the primary considerations. 2. The rest of the abdomen/pelvis is stable compared to the prior exam. Joaquín Leonard MD Physical Exam HEENT: normocephalic; atraumatic; no jaundice. CHEST: Chest is clear to auscultation and percussion. CARDIAC: Regular rate and rhythm with no murmur gallop or rubs. ABDOMEN: Soft, nondistended, nontender; no hepatosplenomegaly; bowel sounds are present in all four quadrants. EXTREMITIES: No clubbing, cyanosis, or edema. SKIN: Normal; no rash; no jaundice. FINANCE ASSOCIATE: No focal deficits; alert and oriented times three. (Amawi,Khawla DETECTIVE CAPTAIN) Assessment and Plan Plan ASSESSMENT - rectal bleeding - 1 week of vaginal and rectal bleeding, No more rectal bleeding, but cont. to have vaginal bleeding. S/P Colonoscopy on 08/17----> The colon mucosa was otherwise normal although limited by poor bowel prep. Retroflexed views revealed no abnormalities - anemia - 2/2 blood lost. normocytic. 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 (Adrian Bravo MD) Judy Colvin Aug 19, 2017 09:59 Adrian Bravo MD Aug 19, 2017 12:10
[2017-08-19] MEDS: INSULIN DETEMIR 100 UNITS/ML VIAL SQ SCH (20:17)
[2017-08-20] VITALS (7 sets, daily range): BP systolic 138–159; BP diastolic 78–86; PULSE 67–75; RESP 17–20; TEMP 96–98.7; O2SAT 96–98
[2017-08-20] MEDS: VANCOMYCIN INJ 1,250 MG in SODIUM CHLOR 0.9% 250 ML INJ 250 ML IV SCH ×2 (01:09→20:58)
[2017-08-20] MEDS: PIPERACIL-TAZO 4.5 GM PREMIX 100 ML IV SCH ×5 (04:52→23:12)
[2017-08-20] MEDS: INSULIN ASPART SUPPLEMENTAL SCALE SQ SCH ×4 (08:00→21:49)
[2017-08-20] MEDS: amLODIPine BESYLATE 5 MG TAB PO SCH (08:56)
[2017-08-20] MEDS: PANTOPRAZOLE SOD 40 MG DELAYED RELEASE TAB PO SCH (08:56)
[2017-08-20] MEDS: ACETAMINOPHEN 325 MG TAB PO PRN ×2 (09:00→18:25)
[2017-08-20] MEDS: SODIUM CHLORIDE 0.9% FLUSH 10 ML FLUSH IV FLUSH SCH ×2 (09:00→20:58)
--- NOTE | 2017-08-20 14:18 | HHI.PR ---
Subjective Remarks Complaint of stomach and back pain no nausea or vomiting, patient stated she did not have a bowel movement since 2 days ago Afebrile overnight Objective Vitals Vital Signs Date Time Temp Pulse Resp B/P (MAP) Pulse Ox O2 Delivery O2 Flow Rate FiO2 08/20/17 12:00 98.0 75 20 149/86 (107) 97 08/20/17 08:00 98.3 70 18 159/85 (109) 97 08/20/17 04:00 67 08/20/17 04:00 98.7 70 18 157/85 (109) 98 08/20/17 00:14 70 08/20/17 00:00 96.0 71 17 138/81 (100) 98 08/19/17 20:00 96.3 76 17 143/86 (105) 98 08/19/17 16:45 74 08/19/17 16:00 96.9 60 18 149/78 (101) 100 I/O 08/19/17 08/19/17 08/19/17 08/20/17 08/20/17 08/20/17 07:00 15:00 23:00 07:00 15:00 23:00 Intake Total 480 ml 100 ml 1162.5 ml 702.5 ml Output Total 1000 ml 900 ml 1600 ml Balance -520 ml 100 ml 262.5 ml -897.5 ml Intake Oral 480 ml 900 ml 240 ml IV Total 100 ml 262.5 ml 462.5 ml Output Urine Total 1000 ml 900 ml 1600 ml # Bowel Movements 0 1 Result Diagram: 08/19/17 0510 08/19/17 0510 Objective Remarks GENERAL: This is a well-nourished, well-developed patient, in no apparent distress. SKIN: No rashes, warm and dry HEAD: Atraumatic. Normocephalic. EYES: Pupils equal round and reactive. Extraocular motions intact. No scleral icterus. ENT: Nose without bleeding, or drainage, Airway patent. NECK: Trachea midline. Supple CARDIOVASCULAR: Regular rate and rhythm without murmurs, gallops, or rubs. RESPIRATORY: Fair air entry bilaterally. No wheezes, rales, or rhonchi. GASTROINTESTINAL: Abdomen soft, non-tender, nondistended. Positive bowel sounds MUSCULOSKELETAL: Extremities without clubbing, cyanosis, or edema. Pedal pulses appreciated NEUROLOGICAL: Awake and alert. Moves all extremity. Normal speech.no focal neurological deficit A/P Problem List: (1) GI bleeding ICD Code: K92.2 - Gastrointestinal hemorrhage, unspecified (2) Sepsis ICD Code: A41.9 - Sepsis, unspecified organism Status: Acute (3) UTI (urinary tract infection) ICD Code: N39.0 - Urinary tract infection, site not specified Status: Acute Assessment and Plan 08/20: Continue current care, monitor and follow culture, awaiting ID clearance for port placement when bacteremia cleared, monitor WBC and temperature A/P: 62 year-old female with Sepsis UTI Continue IV Zosyn pending culture reports Bacteremia GPC Repeat Blood culture and ff ID following Added Vancomycin IV Q day and continue Zosyn GIB Symptomatic anemia S/p colonoscopy on 08/17/17 ---->The colon mucosa was otherwise normal although limited by poor bowel prep GI ff change Protonix 40mg to PO daily Transfused 1 unit PRBC serial H/H avoid anticoagulants Iron deficiency anemia- transfuse Venofer when stable Abnormal uterine bleeding 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 Previous A1c 8.2 10/03/15. Levemir, Accu-Chek with ISS, monitor blood sugar and adjust insulin Hypertension-Continue BP meds, monitor and adjust as need Asthma/COPD, not in acute exacerbation -DuoNeb's when necessary DVT prophylaxis Avoid chemoprophylaxis secondary to GI bleed Bilateral SCD/DENISE hose Problem Qualifiers (1) Sepsis: Qualified Codes: A41.9 - Sepsis, unspecified organism (2) UTI (urinary tract infection): Qualified Codes: N39.0 - Urinary tract infection, site not specified Neville Hyde MD Aug 20, 2017 14:18
[2017-08-20] MEDS ORDERED: PHARMACY ORDERED LAB ONE (19:45)
[2017-08-20] MEDS: INSULIN DETEMIR 100 UNITS/ML VIAL SQ SCH (21:49)
[2017-08-21] VITALS (8 sets, daily range): BP systolic 117–147; BP diastolic 60–82; PULSE 66–87; RESP 16–22; TEMP 97.6–99; O2SAT 95–100
[2017-08-21] MEDS: PIPERACIL-TAZO 4.5 GM PREMIX 100 ML IV SCH ×3 (04:41→17:22)
[2017-08-21] MEDS: amLODIPine BESYLATE 5 MG TAB PO SCH (09:54)
[2017-08-21] MEDS: VANCOMYCIN 1,000 MG/NS 250 ML IV SCH ×2 (09:54)
[2017-08-21] MEDS: PANTOPRAZOLE SOD 40 MG DELAYED RELEASE TAB PO SCH (09:54)
[2017-08-21] MEDS: SODIUM CHLORIDE 0.9% FLUSH 10 ML FLUSH IV FLUSH SCH (09:57)
[2017-08-21] MEDS: INSULIN ASPART SUPPLEMENTAL SCALE SQ SCH ×4 (10:14→21:57)
--- NOTE | 2017-08-21 15:34 | HHI.IDPN ---
Subjective Subjective Remarks repeat blood clx neg @ 3 days no c/o undergoing XRT no fever no bleeding no dc Antibiotics vanco zosyn Allergies: Coded Allergies: No Known Allergies (Unverified Allergy, Unknown, 08/15/17) Objective . Vital Signs Date Time Temp Pulse Resp B/P (MAP) Pulse Ox O2 Delivery O2 Flow Rate FiO2 08/21/17 08:00 72 08/21/17 08:00 97.8 77 16 147/82 (103) 97 08/21/17 06:01 98.3 76 17 117/60 (79) 95 08/21/17 04:00 66 08/21/17 00:02 69 08/21/17 00:00 97.6 71 17 141/76 (97) 98 08/20/17 20:00 69 08/20/17 20:00 98.0 72 17 157/85 (109) 98 08/20/17 16:00 97.7 71 18 145/78 (100) 96 08/21/17 08/21/17 08/22/17 15:00 23:00 07:00 # Sanitary Pads 2 Pads . Microbiology Date/Time Source Procedure Growth Status 08/18/17 20:20 Blood Peripheral Aerobic Blood Culture - Preliminary NO GROWTH IN 3 DAYS Resulted 08/18/17 20:20 Blood Peripheral Anaerobic Blood Culture - Preliminary NO GROWTH IN 3 DAYS Resulted 08/18/17 20:15 Blood Peripheral Aerobic Blood Culture - Preliminary NO GROWTH IN 3 DAYS Resulted 08/18/17 20:15 Blood Peripheral Anaerobic Blood Culture - Preliminary NO GROWTH IN 3 DAYS Resulted Imaging Last Impressions Pelvis MRI 08/18/17 0000 Signed Impressions: Service Date/Time: Friday, August 18, 2017 13:20 - CONCLUSION: Large mass arising most likely in the uterine cervical junction segment obstruction of the uterus. There is obturator adenopathy on the left there is pathologic. There is no bony metastatic disease. Stanton Mitchell MD FACR Abdomen/Pelvis/Transvag US 08/16/17 0000 Signed Impressions: Service Date/Time: Wednesday, August 16, 2017 10:39 - CONCLUSION: 1. Large mass as described above likely cervical malignancy. 2. There is some prominent adenopathy along the left pelvic sidewall as seen on recent CT scan. 3. Ovaries appear unremarkable. Mayco Lazo MD Chest X-Ray 08/15/17 1138 Signed Impressions: Service Date/Time: Tuesday, August 15, 2017 11:52 - CONCLUSION: No acute disease. Mayco Lazo MD Abdomen/Pelvis CT 08/15/17 0000 Signed Impressions: Service Date/Time: Tuesday, August 15, 2017 15:53 - CONCLUSION: 1. Grossly abnormal uterus with a large heterogeneous lower uterine segment which appears to be causing obstruction to the body of the uterus. Neoplastic disease of the lower uterus and/or cervix are the primary considerations. 2. The rest of the abdomen/pelvis is stable compared to the prior exam. Joaquín Leonard MD Physical Exam CONSTITUTIONAL/GENERAL: This is an obese patient, in no apparent distress. TUBES/LINES/DRAINS: SKIN: No jaundice, rashes, or lesions. . Skin temperature appropriate. Not diaphoretic. CARDIOVASCULAR: Regular rate and rhythm without murmurs, gallops, or rubs. No JVD. Peripheral pulses symmetric. RESPIRATORY/CHEST: Symmetric, unlabored respirations. Clear to auscultation. Breath sounds equal bilaterally. No wheezes, rales, or rhonchi. GASTROINTESTINAL: Abdomen soft, non-tender, distended. No hepato-splenomegaly, or palpable masses. No guarding. Bowel sounds present. GENITOURINARY: Without palpable bladder distension. Suprapubid area is tender to palpation MUSCULOSKELETAL: Extremities without clubbing, cyanosis, or edema. No joint tenderness or effusion noted. No calf tenderness. No mottling or clubbing. LYMPHATICS: No palpable cervical or supraclavicular adenopathy. NEUROLOGICAL: Awake and alert. Motor and sensory grossly within normal limits. Follows commands. Clear speech . Moves all extremities. PSYCHIATRIC: calm, cooperative Assessment & Plan Remarks Advanced newly diagnosed cervical ca presented as vaginal bleeding from nectrotic mass Fever , high grade: resolved Bacteremia, including anaerobs - w[place] 2/2 infection 2/2 necrotic tumor UTI, E.coli awaiting port palcement for chemo - cont zosyn - will dc vancomycin - OK to place PORT if remains afebrile, clinically free of infection and rpeat blood clx negative - final - Plan to switch to PO abx (Augmentin) when ready to dc to complete about 10 days course Discussed Condition With Dayana Velez MD Aug 21, 2017 15:34
--- NOTE | 2017-08-21 16:16 | HHI.PR ---
Subjective Remarks Afebrile overnight No acute event Discussed with ID probably patient okay to go for port insertion Objective Vitals Vital Signs Date Time Temp Pulse Resp B/P (MAP) Pulse Ox O2 Delivery O2 Flow Rate FiO2 08/21/17 08:00 72 08/21/17 08:00 97.8 77 16 147/82 (103) 97 08/21/17 06:01 98.3 76 17 117/60 (79) 95 08/21/17 04:00 66 08/21/17 00:02 69 08/21/17 00:00 97.6 71 17 141/76 (97) 98 08/20/17 20:00 69 08/20/17 20:00 98.0 72 17 157/85 (109) 98 I/O 08/20/17 08/20/17 08/20/17 08/21/17 08/21/17 08/21/17 07:00 15:00 23:00 07:00 15:00 23:00 Intake Total 702.5 ml 100 ml 1700 ml 602.5 ml Output Total 1600 ml 2800 ml 600 ml Balance -897.5 ml 100 ml -1100 ml 2.5 ml Intake Oral 240 ml 1600 ml 240 ml IV Total 462.5 ml 100 ml 100 ml 362.5 ml Output Urine Total 1600 ml 2800 ml 600 ml # Bowel Movements 2 # Sanitary Pads 2 Pads Result Diagram: 08/19/17 0510 08/19/17 0510 Objective Remarks GENERAL: This is a well-nourished, well-developed patient, in no apparent distress. SKIN: No rashes, warm and dry HEAD: Atraumatic. Normocephalic. EYES: Pupils equal round and reactive. Extraocular motions intact. No scleral icterus. ENT: Nose without bleeding, or drainage, Airway patent. NECK: Trachea midline. Supple CARDIOVASCULAR: Regular rate and rhythm without murmurs, gallops, or rubs. RESPIRATORY: Fair air entry bilaterally. No wheezes, rales, or rhonchi. GASTROINTESTINAL: Abdomen soft, non-tender, nondistended. Positive bowel sounds MUSCULOSKELETAL: Extremities without clubbing, cyanosis, or edema. Pedal pulses appreciated NEUROLOGICAL: Awake and alert. Moves all extremity. Normal speech.no focal neurological deficit A/P Problem List: (1) GI bleeding ICD Code: K92.2 - Gastrointestinal hemorrhage, unspecified (2) Sepsis ICD Code: A41.9 - Sepsis, unspecified organism Status: Acute (3) UTI (urinary tract infection) ICD Code: N39.0 - Urinary tract infection, site not specified Status: Acute Assessment and Plan 08/20: Continue current care, monitor and follow culture, awaiting ID clearance for port placement when bacteremia cleared, monitor WBC and temperature 08/21: Discussed with ID mostly patient okay to go for port placement, continue monitoring temperature and WBC and cultures A/P: 62 year-old female with Sepsis UTI Continue IV Zosyn pending culture reports Bacteremia GPC Repeat Blood culture and ff ID following Added Vancomycin IV Q day and continue Zosyn GIB Symptomatic anemia S/p colonoscopy on 08/17/17 ---->The colon mucosa was otherwise normal although limited by poor bowel prep GI ff change Protonix 40mg to PO daily Transfused 1 unit PRBC serial H/H avoid anticoagulants Iron deficiency anemia- transfuse Venofer when stable Abnormal uterine bleeding Invasive Cervical cancer 3A 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 Previous A1c 8.2 10/03/15. Levemir, Accu-Chek with ISS, monitor blood sugar and adjust insulin Hypertension-Continue BP meds, monitor and adjust as need Asthma/COPD, not in acute exacerbation -DuoNeb's when necessary DVT prophylaxis Avoid chemoprophylaxis secondary to GI bleed Bilateral SCD/DENISE hose Problem Qualifiers (1) Sepsis: Qualified Codes: A41.9 - Sepsis, unspecified organism (2) UTI (urinary tract infection): Qualified Codes: N39.0 - Urinary tract infection, site not specified Neville Hyde MD Aug 21, 2017 16:16
[2017-08-21] MEDS ORDERED: PHARMACY ORDERED LAB ONE (21:45)
[2017-08-21] MEDS: INSULIN DETEMIR 100 UNITS/ML VIAL SQ SCH (21:56)
[2017-08-22] VITALS (7 sets, daily range): BP systolic 121–146; BP diastolic 60–85; PULSE 72–92; RESP 16–22; TEMP 95.8–98.9; O2SAT 94–100
[2017-08-22] MEDS: SODIUM CHLORIDE 0.9% FLUSH 10 ML FLUSH IV FLUSH SCH ×3 (00:48→20:22)
[2017-08-22] MEDS: PIPERACIL-TAZO 4.5 GM PREMIX 100 ML IV SCH ×5 (00:48→22:45)
[2017-08-22] MEDS: VANCOMYCIN 1,000 MG/NS 250 ML IV SCH ×6 (01:28→22:45)
[2017-08-22] MEDS: PANTOPRAZOLE SOD 40 MG DELAYED RELEASE TAB PO SCH (07:58)
[2017-08-22] MEDS: ACETAMINOPHEN 325 MG TAB PO PRN (07:58)
[2017-08-22] MEDS: amLODIPine BESYLATE 5 MG TAB PO SCH (07:58)
[2017-08-22] MEDS: INSULIN ASPART SUPPLEMENTAL SCALE SQ SCH ×4 (08:00→20:21)
[2017-08-22 09:40] LABS: CREATININE 0.86 MG/DL (0.50-1.00)
--- NOTE | 2017-08-22 12:43 | HHI.PR ---
Subjective Remarks Resting in bed comfortably No acute distress Cleared by ID to play sport I will place order for that Objective Vitals Vital Signs Date Time Temp Pulse Resp B/P (MAP) Pulse Ox O2 Delivery O2 Flow Rate FiO2 08/22/17 12:00 97.8 80 17 121/73 (89) 96 08/22/17 08:15 72 08/22/17 08:00 97.5 76 17 131/74 (93) 94 08/22/17 04:00 96.4 83 16 122/60 (80) 97 08/22/17 00:00 95.8 92 18 126/76 (93) 100 08/21/17 20:30 78 08/21/17 20:00 99.0 75 22 142/76 (98) 97 08/21/17 16:00 98.5 87 18 136/79 (98) 100 I/O 08/21/17 08/21/17 08/21/17 08/22/17 08/22/17 08/22/17 07:00 15:00 23:00 07:00 15:00 23:00 Intake Total 602.5 ml 1400 ml 240 ml Output Total 600 ml 3200 ml 1000 ml Balance 2.5 ml -1800 ml -760 ml Intake Oral 240 ml 1400 ml 240 ml IV Total 362.5 ml Output Urine Total 600 ml 3200 ml 1000 ml # Bowel Movements 1 # Sanitary Pads 2 Pads 3 Pads 0 Pads Result Diagram: 08/19/17 0510 08/22/17 0728 Objective Remarks GENERAL: This is a well-nourished, well-developed patient, in no apparent distress. SKIN: No rashes, warm and dry HEAD: Atraumatic. Normocephalic. EYES: Pupils equal round and reactive. Extraocular motions intact. No scleral icterus. ENT: Nose without bleeding, or drainage, Airway patent. NECK: Trachea midline. Supple CARDIOVASCULAR: Regular rate and rhythm without murmurs, gallops, or rubs. RESPIRATORY: Fair air entry bilaterally. No wheezes, rales, or rhonchi. GASTROINTESTINAL: Abdomen soft, non-tender, nondistended. Positive bowel sounds MUSCULOSKELETAL: Extremities without clubbing, cyanosis, or edema. Pedal pulses appreciated NEUROLOGICAL: Awake and alert. Moves all extremity. Normal speech.no focal neurological deficit A/P Problem List: (1) GI bleeding ICD Code: K92.2 - Gastrointestinal hemorrhage, unspecified (2) Sepsis ICD Code: A41.9 - Sepsis, unspecified organism Status: Acute (3) UTI (urinary tract infection) ICD Code: N39.0 - Urinary tract infection, site not specified Status: Acute Assessment and Plan 08/20: Continue current care, monitor and follow culture, awaiting ID clearance for port placement when bacteremia cleared, monitor WBC and temperature 08/21: Discussed with ID mostly patient okay to go for port placement, continue monitoring temperature and WBC and cultures 08/22: Stable afebrile, I placed order for port placement by IR, continue to monitor culture and WBC A/P: 62 year-old female with Sepsis UTI Continue IV Zosyn pending culture reports Bacteremia GPC Repeat Blood culture and ff ID following Added Vancomycin IV Q day and continue Zosyn GIB Symptomatic anemia S/p colonoscopy on 08/17/17 ---->The colon mucosa was otherwise normal although limited by poor bowel prep GI ff change Protonix 40mg to PO daily Transfused 1 unit PRBC serial H/H avoid anticoagulants Iron deficiency anemia- transfuse Venofer when stable Abnormal uterine bleeding Invasive Cervical cancer 3A 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 Previous A1c 8.2 10/03/15. Levemir, Accu-Chek with ISS, monitor blood sugar and adjust insulin Hypertension-Continue BP meds, monitor and adjust as need Asthma/COPD, not in acute exacerbation -DuoNeb's when necessary DVT prophylaxis Avoid chemoprophylaxis secondary to GI bleed Bilateral SCD/DENISE hose Problem Qualifiers (1) Sepsis: Qualified Codes: A41.9 - Sepsis, unspecified organism (2) UTI (urinary tract infection): Qualified Codes: N39.0 - Urinary tract infection, site not specified Neville Hyde MD Aug 22, 2017 12:43
--- NOTE | 2017-08-22 15:49 | HHI.PR ---
Addendum to Inpatient Note Additional Information blood clx results were dw micro: GNB and anaerobs Dayana Cornejo MD Aug 22, 2017 15:49
[2017-08-22] MEDS: INSULIN DETEMIR 100 UNITS/ML VIAL SQ SCH (20:21)
[2017-08-22] MEDS ORDERED: PHARMACY ORDERED LAB ONE (21:45)
[2017-08-23] VITALS (7 sets, daily range): BP systolic 121–136; BP diastolic 66–75; PULSE 70–86; RESP 16–20; TEMP 96.2–98.5; O2SAT 96–97
[2017-08-23] MEDS: PIPERACIL-TAZO 4.5 GM PREMIX 100 ML IV SCH ×4 (06:08→23:46)
[2017-08-23] MEDS: ACETAMINOPHEN 325 MG TAB PO PRN ×2 (09:08→20:35)
[2017-08-23] MEDS: VANCOMYCIN 1,000 MG/NS 250 ML IV SCH ×2 (09:08)
[2017-08-23] MEDS: PANTOPRAZOLE SOD 40 MG DELAYED RELEASE TAB PO SCH (09:08)
[2017-08-23] MEDS: amLODIPine BESYLATE 5 MG TAB PO SCH (09:08)
[2017-08-23] MEDS: SODIUM CHLORIDE 0.9% FLUSH 10 ML FLUSH IV FLUSH SCH ×2 (09:09→20:36)
[2017-08-23] MEDS: INSULIN ASPART SUPPLEMENTAL SCALE SQ SCH ×4 (09:10→20:36)
[2017-08-23] MEDS ORDERED: PHARMACY ORDERED LAB ONE (09:45)
--- NOTE | 2017-08-23 12:02 | HHI.PR ---
Subjective Remarks Patient still complaining of stomach and back pain We will proceed for port placement if still indicated her Dr. Marks Objective Vitals Vital Signs Date Time Temp Pulse Resp B/P (MAP) Pulse Ox O2 Delivery O2 Flow Rate FiO2 08/23/17 08:00 98.3 76 17 123/70 (87) 96 08/23/17 04:00 97.7 86 20 121/69 (86) 97 08/23/17 00:00 98.3 75 20 136/69 (91) 97 08/22/17 20:00 98.9 81 22 146/85 (105) 98 08/22/17 16:00 97.0 80 16 122/74 (90) 97 I/O 08/22/17 08/22/17 08/22/17 08/23/17 08/23/17 08/23/17 07:00 15:00 23:00 07:00 15:00 23:00 Intake Total 240 ml 1200 ml 480 ml Output Total 1000 ml 3300 ml 2800 ml Balance -760 ml -2100 ml -2320 ml Intake Oral 240 ml 1200 ml 480 ml Output Urine Total 1000 ml 3300 ml 2800 ml # Bowel Movements 0 0 # Sanitary Pads 0 Pads 1 Pads Result Diagram: 08/19/17 0510 08/22/17 0728 Objective Remarks GENERAL: This is a well-nourished, well-developed patient, in no apparent distress. SKIN: No rashes, warm and dry HEAD: Atraumatic. Normocephalic. EYES: Pupils equal round and reactive. Extraocular motions intact. No scleral icterus. ENT: Nose without bleeding, or drainage, Airway patent. NECK: Trachea midline. Supple CARDIOVASCULAR: Regular rate and rhythm without murmurs, gallops, or rubs. RESPIRATORY: Fair air entry bilaterally. No wheezes, rales, or rhonchi. GASTROINTESTINAL: Abdomen soft, non-tender, nondistended. Positive bowel sounds MUSCULOSKELETAL: Extremities without clubbing, cyanosis, or edema. Pedal pulses appreciated NEUROLOGICAL: Awake and alert. Moves all extremity. Normal speech.no focal neurological deficit A/P Problem List: (1) GI bleeding ICD Code: K92.2 - Gastrointestinal hemorrhage, unspecified (2) Sepsis ICD Code: A41.9 - Sepsis, unspecified organism Status: Acute (3) UTI (urinary tract infection) ICD Code: N39.0 - Urinary tract infection, site not specified Status: Acute Assessment and Plan 08/20: Continue current care, monitor and follow culture, awaiting ID clearance for port placement when bacteremia cleared, monitor WBC and temperature 08/21: Discussed with ID mostly patient okay to go for port placement, continue monitoring temperature and WBC and cultures 08/22: Stable afebrile, I placed order for port placement by IR, continue to monitor culture and WBC 08/23: Port placement to be done today, continue monitoring temperature WBC, further recommendation per Dr. 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 Previous A1c 8.2 10/03/15. Levemir, Accu-Chek with ISS, monitor blood sugar and adjust insulin Hypertension-Continue BP meds, monitor and adjust as need Asthma/COPD, not in acute exacerbation -DuoNeb's when necessary DVT prophylaxis Avoid chemoprophylaxis secondary to GI bleed Bilateral SCD/DENISE hose Problem Qualifiers (1) Sepsis: Qualified Codes: A41.9 - Sepsis, unspecified organism (2) UTI (urinary tract infection): Qualified Codes: N39.0 - Urinary tract infection, site not specified Neville Hyde MD Aug 23, 2017 12:02
[2017-08-23] MEDS ORDERED: VANCOMYCIN INJ 500 MG in SODIUM CHLORIDE 0.9% INJ 100 ML IV SCH (16:00)
[2017-08-23 17:03] LABS: PROTHROMBIN TIME - PATIENT 10.2 SEC (9.8-11.6)
[2017-08-23] MEDS: VANCOMYCIN INJ 1,250 MG in SODIUM CHLOR 0.9% 250 ML INJ 250 ML IV SCH (17:05)
[2017-08-23] MEDS: INSULIN DETEMIR 100 UNITS/ML VIAL SQ SCH (20:36)
[2017-08-24] VITALS (10 sets, daily range): BP systolic 112–135; BP diastolic 62–74; PULSE 73–87; RESP 16–20; TEMP 96.8–98.7; O2SAT 93–99
[2017-08-24] MEDS: VANCOMYCIN INJ 1,250 MG in SODIUM CHLOR 0.9% 250 ML INJ 250 ML IV SCH ×2 (05:47→16:38)
[2017-08-24] MEDS: PIPERACIL-TAZO 4.5 GM PREMIX 100 ML IV SCH ×3 (05:47→16:38)
[2017-08-24] MEDS: INSULIN ASPART SUPPLEMENTAL SCALE SQ SCH ×4 (08:00→21:39)
[2017-08-24] MEDS: amLODIPine BESYLATE 5 MG TAB PO SCH (08:37)
[2017-08-24] MEDS: PANTOPRAZOLE SOD 40 MG DELAYED RELEASE TAB PO SCH (08:37)
[2017-08-24] MEDS: SODIUM CHLORIDE 0.9% FLUSH 10 ML FLUSH IV FLUSH SCH ×2 (08:38→21:31)
[2017-08-24] MEDS: ACETAMINOPHEN 325 MG TAB PO PRN ×2 (08:38→15:29)
[2017-08-24] MEDS ORDERED: MIDAZOLAM HCL 2 MG/2 ML VIAL ONE (10:19)
[2017-08-24] MEDS ORDERED: fentaNYL CITRATE 250 MCG/5 ML AMP ONE (10:20)
[2017-08-24] MEDS ORDERED: LIDOCAINE 1%/EPINEPHrine 1:100,000 SOLN 30 ML VIAL ONE (10:31)
--- NOTE | 2017-08-24 12:38 | PD.RAD ---
Post Procedure Progress Note Procedure Date: Aug 24, 2017 Supervising Radiologist: Ken Camacho Proceduralist/Assist: Lucy Mtz, RT(R)(CV), Josiah Akhtar RT(R) Anesthesia: Conscious Sedation Plan of Activity Patient to Unit: ROPU Patient Condition: Good See PACS Report for procedural detail/treatment Ken Camacho MD Aug 24, 2017 12:38
[2017-08-24] MEDS ORDERED: SODIUM CHLORIDE 0.9% FLUSH 10 ML FLUSH IVF PRN (12:45)
--- NOTE | 2017-08-24 12:47 | RADRPT ---
EXAM DATE/TIME: 08/24/2017 10:02 [facility] COMPARISON: No previous studies available for comparison. INDICATIONS : Patient with history of cervical cancer.Needs a infusaport for chemotherapy MEDICAL HISTORY : 1. 1. Cervical cancer 2. COPD 3. DM 4. Asthma 5. perforated viscus 6. HTN 7. former smoker 8. UTI SURGICAL HISTORY : 1. Cataract surgery 2. laproscopic repair of perforated ulcer. ENCOUNTER: Initial ACUITY: 4-6 days PAIN SCORE: 0/10 FLUORO TIME: 0.4 minutes IMAGE SERIES: 2 SEDATION TIME: 30 minutes ACCESS: Right internal jugular vein SEDATION: 1.) 2 mg midazolam (Versed) IV 2.) 250 mcg fentanyl (Sublimaze) IV Prophylactic antibiotics were administered with appropriate pre-procedure timing. Vancomycin within 2 hours of procedure, Ancef (or alternative) within 1 hour of procedure. DEVICE: 1. 8 [place] single lumen Xcela plus port PROCEDURE : 1. Continuous pulse oximetry and EKG monitoring. 2. Intravenous conscious sedation. 3. Ultrasound guidance for venous access. 4. Fluoroscopic guided implantable central venous port placement. The patient was placed supine. The neck was prepped in sterile fashion. Full sterile technique was u sed, including cap, mask, sterile gloves and gown, and a large sterile sheet. Hand hygiene and 2% ch lorhexidine Betadine was utilized per protocol for cutaneous antisepsis with appropriate dry time for site. Sterile gel and sterile probe cover were utilized for ultrasound guidance. The skin and sub cutaneous tissues were infiltrated with local anesthetic solution. Under direct ultrasound guidance, central venous access was accomplished in the targeted vessel. The ultrasound images depicting access guidance were stored and saved to PACS for permanent record. A s ubcutaneous pocket was created using blunt dissection. The port was introduced to the pocket. The c atheter tubing was fed through a subcutaneous tunnel to the venotomy site. The catheter tubing was c ut to a suitable length and then was introduced through a valved Peel-Away sheath and positioned with catheter tubing tip at the cavo-atrial junction level. The pocket incision was closed with subcutic ular Vicryl suture. Steri-Strips were applied. The port was flushed and locked with heparin solutio n per protocol. Sterile dressing was applied to the site. The patient tolerated the procedure well. Conscious sedation was performed with the prescribed dosages and duration as above in the presence of an independent trained radiology nurse to assist in the monitoring of the patient. EKG and oximetry remained stable throughout the procedure. The patient tolerated the procedure well and there were no complications. The patient was sent to post anesthesia recovery in stable condition. CONCLUSION: Uncomplicated ultrasound and fluoroscopic guided implanted central venous port catheter placement as described in detail above. An 8 [place] Power port was placed. Ken Camacho MD on August 24, 2017 at 12:45 Board Certified Radiologist. This report was verified electronically.
--- NOTE | 2017-08-24 17:44 | HHI.PR ---
Subjective Remarks Seen and examined earlier today For port placement No acute event overnight Objective Vitals Vital Signs Date Time Temp Pulse Resp B/P (MAP) Pulse Ox O2 Delivery O2 Flow Rate FiO2 08/24/17 16:00 96.8 80 16 112/64 (80) 97 08/24/17 12:00 73 20 124/69 (87) 93 08/24/17 11:42 73 17 127/73 (91) 98 08/24/17 11:27 98.7 75 18 135/74 (94) 98 08/24/17 08:00 96.8 80 16 113/62 (79) 96 08/24/17 04:00 97.0 74 16 130/69 (89) 99 08/24/17 00:00 97.9 74 16 135/74 (94) 97 08/23/17 22:00 20 08/23/17 20:30 84 08/23/17 20:00 97.0 76 16 131/75 (93) 97 I/O 08/23/17 08/23/17 08/23/17 08/24/17 08/24/17 08/24/17 07:00 15:00 23:00 07:00 15:00 23:00 Intake Total 480 ml 350 ml 1922.5 ml 0 ml 462.5 ml Output Total 2800 ml 3000 ml 1000 ml Balance -2320 ml 350 ml -1077.5 ml -1000 ml 462.5 ml Intake Oral 480 ml 1560 ml 0 ml IV Total 350 ml 362.5 ml 462.5 ml Output Urine Total 2800 ml 3000 ml 1000 ml # Bowel Movements 0 1 0 # Sanitary Pads 1 Pads Result Diagram: 08/22/17 0728 Objective Remarks GENERAL: This is a well-nourished, well-developed patient, in no apparent distress. SKIN: No rashes, warm and dry HEAD: Atraumatic. Normocephalic. EYES: Pupils equal round and reactive. Extraocular motions intact. No scleral icterus. ENT: Nose without bleeding, or drainage, Airway patent. NECK: Trachea midline. Supple CARDIOVASCULAR: Regular rate and rhythm without murmurs, gallops, or rubs. RESPIRATORY: Fair air entry bilaterally. No wheezes, rales, or rhonchi. GASTROINTESTINAL: Abdomen soft, non-tender, nondistended. Positive bowel sounds MUSCULOSKELETAL: Extremities without clubbing, cyanosis, or edema. Pedal pulses appreciated NEUROLOGICAL: Awake and alert. Moves all extremity. Normal speech.no focal neurological deficit A/P Problem List: (1) GI bleeding ICD Code: K92.2 - Gastrointestinal hemorrhage, unspecified (2) Sepsis ICD Code: A41.9 - Sepsis, unspecified organism Status: Acute (3) UTI (urinary tract infection) ICD Code: N39.0 - Urinary tract infection, site not specified Status: Acute Assessment and Plan 08/20: Continue current care, monitor and follow culture, awaiting ID clearance for port placement when bacteremia cleared, monitor WBC and temperature 08/21: Discussed with ID mostly patient okay to go for port placement, continue monitoring temperature and WBC and cultures 08/22: Stable afebrile, I placed order for port placement by IR, continue to monitor culture and WBC 08/23: Port placement to be done today, continue monitoring temperature WBC, further recommendation per Dr. Thompson and ID 08/24: Going for port placement today, continue monitoring temperature WBC, DIE CASTING MACHINE OPERATOR oncology for further recommendation A/P: 62 year-old female with Sepsis UTI Continue IV Zosyn pending culture reports Bacteremia GPC Repeat Blood culture and ff ID following Added Vancomycin IV Q day and continue Zosyn GIB Symptomatic anemia S/p colonoscopy on 08/17/17 ---->The colon mucosa was otherwise normal although limited by poor bowel prep GI ff change Protonix 40mg to PO daily Transfused 1 unit PRBC serial H/H avoid anticoagulants Iron deficiency anemia- transfuse Venofer when stable Abnormal uterine bleeding 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 Previous A1c 8.2 10/03/15. Levemir, Accu-Chek with ISS, monitor blood sugar and adjust insulin Hypertension-Continue BP meds, monitor and adjust as need Asthma/COPD, not in acute exacerbation -DuoNeb's when necessary DVT prophylaxis Avoid chemoprophylaxis secondary to GI bleed Bilateral SCD/DENISE hose Problem Qualifiers (1) Sepsis: Qualified Codes: A41.9 - Sepsis, unspecified organism (2) UTI (urinary tract infection): Qualified Codes: N39.0 - Urinary tract infection, site not specified Neville Hyde MD Aug 24, 2017 17:44
[2017-08-24] MEDS: INSULIN DETEMIR 100 UNITS/ML VIAL SQ SCH (21:39)
[2017-08-25] VITALS: BP 112/70; PULSE 72; RESP 17; TEMP 96.4; O2SAT 95
[2017-08-25] MEDS: PIPERACIL-TAZO 4.5 GM PREMIX 100 ML IV SCH ×2 (00:27→05:46)
[2017-08-25] MEDS: SODIUM CHLORIDE 0.9% FLUSH 10 ML FLUSH IV FLUSH PRN ×2 (00:27→05:45)
[2017-08-25 04:17] VITALS: PULSE 84
[2017-08-25 05:00] VITALS: BP 131/68; PULSE 91; RESP 17; TEMP 97.5; O2SAT 95
[2017-08-25] MEDS ORDERED: PHARMACY ORDERED LAB ONE (05:45)
[2017-08-25] MEDS: VANCOMYCIN INJ 1,250 MG in SODIUM CHLOR 0.9% 250 ML INJ 250 ML IV SCH (06:50)
[2017-08-25 08:00] VITALS: BP 126/75; PULSE 78; RESP 17; TEMP 97; O2SAT 97
--- NOTE | 2017-08-25 10:21 | HHI.PR ---
Subjective . no new c/o resting comfortably Objective . a&o x3, nad, sitting up in bed adequate pain control venous access port site clean, nt Assessment/Plan . IIIb SCC of cervix urosepsis resolved s/p port placement chemotherapy teaching today by Mike Marie (weekly cisplatin0 Q&A I spoke with Dr. Mackenzie who plans to start XRT this coming monday I explained to Ms. Salmeron will will want to start cisplatin next week as well 15 minutes of this face to face encounter spent in counseling & coordination of care Anai Marks MD Aug 25, 2017 10:21
[2017-08-25] MEDS ORDERED: LEVEMIR SQ (11:35)
[2017-08-25] MEDS ORDERED: NOVOLOGSS SQ (11:35)
--- NOTE | 2017-08-25 11:38 | HHI.PR ---
Subjective Remarks Resting comfortably in bed No event overnight Denied chest and or short of breath No fever or chills Objective Vitals Vital Signs Date Time Temp Pulse Resp B/P (MAP) Pulse Ox O2 Delivery O2 Flow Rate FiO2 08/25/17 08:00 97.0 78 17 126/75 (92) 97 08/25/17 05:00 97.5 91 17 131/68 (89) 95 08/25/17 04:17 84 08/25/17 00:00 96.4 72 17 112/70 (84) 95 08/24/17 23:14 81 08/24/17 20:18 87 08/24/17 20:00 97.7 81 17 118/71 (87) 95 08/24/17 16:00 96.8 80 16 112/64 (80) 97 08/24/17 12:00 73 20 124/69 (87) 93 08/24/17 11:42 73 17 127/73 (91) 98 I/O 08/24/17 08/24/17 08/24/17 08/25/17 08/25/17 08/25/17 06:59 14:59 22:59 06:59 14:59 22:59 Intake Total 0 ml 1362.5 ml 440 ml Output Total 1000 ml 600 ml Balance -1000 ml 1362.5 ml -160 ml Intake Oral 0 ml 900 ml 240 ml IV Total 462.5 ml 200 ml Output Urine Total 1000 ml 600 ml # Voids 4 # Bowel Movements 0 1 Result Diagram: 08/25/17 0623 Objective Remarks GENERAL: This is a well-nourished, well-developed patient, in no apparent distress. SKIN: No rashes, warm and dry HEAD: Atraumatic. Normocephalic. EYES: Pupils equal round and reactive. Extraocular motions intact. No scleral icterus. ENT: Nose without bleeding, or drainage, Airway patent. NECK: Trachea midline. Supple CARDIOVASCULAR: Regular rate and rhythm without murmurs, gallops, or rubs. RESPIRATORY: Fair air entry bilaterally. No wheezes, rales, or rhonchi. GASTROINTESTINAL: Abdomen soft, non-tender, nondistended. Positive bowel sounds MUSCULOSKELETAL: Extremities without clubbing, cyanosis, or edema. Pedal pulses appreciated NEUROLOGICAL: Awake and alert. Moves all extremity. Normal speech.no focal neurological deficit A/P Problem List: (1) GI bleeding ICD Code: K92.2 - Gastrointestinal hemorrhage, unspecified (2) Sepsis ICD Code: A41.9 - Sepsis, unspecified organism Status: Acute (3) UTI (urinary tract infection) ICD Code: N39.0 - Urinary tract infection, site not specified Status: Acute Assessment and Plan 62 year-old female with Sepsis UTI Continue IV Zosyn pending culture reports Bacteremia GPC Repeat Blood culture noted, ID cleared patient for port placement Report has been placed DrJanet Anderson follow for radiation and chemotherapy post discharge ID following decided on Augmentin as a discharge antibiotic Status post vancomycin IV Q day and continue Zosyn GIB Symptomatic anemia S/p colonoscopy on 08/17/17 ---->The colon mucosa was otherwise normal although limited by poor bowel prep GI ff change Protonix 40mg to PO daily Transfused 1 unit PRBC serial H/H avoid anticoagulants Iron deficiency anemia- transfuse Venofer when stable Abnormal uterine bleeding Invasive Cervical cancer 3A 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 Thompson MIK on ?CKD Renal indices improving with IVF hydration Avoid nephrotoxic agent Diabetes mellitus un controlled A1c 9.4 A1c level 9.4. Previous A1c 8.2 10/03/15. Levemir, Accu-Chek with ISS, monitor blood sugar and adjust insulin Hypertension-Continue BP meds, monitor and adjust as need Asthma/COPD, not in acute exacerbation -DuoNeb's when necessary DVT prophylaxis Avoid chemoprophylaxis secondary to GI bleed Bilateral SCD/DENISE hose Discharge Planning Once all arrangements for chemotherapy and radiation therapy and home health care is complete, discussed with the nurse I will be contacted to place discharge order Problem Qualifiers (1) Sepsis: Qualified Codes: A41.9 - Sepsis, unspecified organism (2) UTI (urinary tract infection): Qualified Codes: N39.0 - Urinary tract infection, site not specified Neville Hyde MD Aug 25, 2017 11:38
[2017-08-25] MEDS ORDERED: Amoxicil-Clavulanate PO (11:42)
[2017-08-25] MEDS: INSULIN ASPART SUPPLEMENTAL SCALE SQ SCH ×3 (11:53→17:33)
[2017-08-25] MEDS: amLODIPine BESYLATE 5 MG TAB PO SCH (11:54)
[2017-08-25] MEDS: PANTOPRAZOLE SOD 40 MG DELAYED RELEASE TAB PO SCH (11:54)
--- NOTE | 2017-08-25 11:56 | HHI.DS ---
Discharge Summary Admission Date Aug 15, 2017 at 16:44 Discharge Date: Aug 25, 2017 Admitting Diagnosis sepsis, uti (1) GI bleeding ICD Code: K92.2 - Gastrointestinal hemorrhage, unspecified (2) Sepsis ICD Code: A41.9 - Sepsis, unspecified organism Status: Acute (3) UTI (urinary tract infection) ICD Code: N39.0 - Urinary tract infection, site not specified Status: Acute Procedures colonoscopy Port placement See below for further Brief History - From Admission This is a 62yo female with a past medical history significant for asthma/COPD, hx of perforated viscus, hypertension, diabetes and previous tobacco use with poor medical follow up who presents to [facility] ED with complaints of lower abdominal pain and vaginal bleeding for the past month. She also reports rectal bleeding for the past 2 weeks. She is not a very good historian. [facility]. She denies any fever or chills. She denies any dizziness, lightheadedness or palpitations. She denies any chest pain or shortness of breath. She denies any nausea, vomiting or abdominal pain. She denies any dysuria. She denies any dark/bloody/tarry stools but reports seeing blood on the tissues when she wiped after having a bowel movement. Patient states she quit smoking one year ago. In the ED, CT of abdomen and pelvis was obtained revealing grossly abnormal uterus with large heterogeneous lower uterine segment which appears to be causing obstruction to the body of the uterus. Neoplastic disease of the lower uterus and cervix are primary considerations. CBC/BMP: 08/25/17 0623 Significant Findings Laboratory Tests Test 08/23/17 09:20 08/23/17 16:35 08/25/17 05:45 08/25/17 06:23 Vancomycin Level Trough 12.9 MCG/ML (5.0-10.0) 18.1 MCG/ML (5.0-10.0) Activated Partial Thromboplast Time 22.7 SEC (24.3-30.1) Estimat Glomerular Filtration Rate 68 ML/MIN (>89) PE at Discharge GENERAL: This is a well-nourished, well-developed patient, in no apparent distress. SKIN: No rashes, warm and dry HEAD: Atraumatic. Normocephalic. EYES: Pupils equal round and reactive. Extraocular motions intact. No scleral icterus. ENT: Nose without bleeding, or drainage, Airway patent. NECK: Trachea midline. Supple CARDIOVASCULAR: Regular rate and rhythm without murmurs, gallops, or rubs. RESPIRATORY: Fair air entry bilaterally. No wheezes, rales, or rhonchi. GASTROINTESTINAL: Abdomen soft, non-tender, nondistended. Positive bowel sounds MUSCULOSKELETAL: Extremities without clubbing, cyanosis, or edema. Pedal pulses appreciated NEUROLOGICAL: Awake and alert. Moves all extremity. Normal speech.no focal neurological deficit Hospital Course 62 years old female admitted with bacteremia GI bleed sepsis and UTI, patient placed on IV antibiotic, ID consulted, GI as well she had 6 colonoscopy showed normal colon mucosa, she was worked up for iron deficiency anemia and abnormal uterine bleeding she was found to have invasive cervical cancer, port placed after cleared by ID of the bacteremia, Dr. Thompson [employer] WORK[employer] oncology clear her to discharge after scheduling chemotherapy and radiation therapy post discharge. [id number] encounter performed with the patient on discharge day, as well as physical exam, summary of hospitalization course and postdischarge plan has been D/W the patient. D/W nurse D/W case management manager. Discharge medications reviewed and printed and signed, post discharge follow up visit with PCP and other specialist as well as Brief hospital course and discharge summary has been placed Pt Condition on Discharge: Fair Discharge Disposition: Discharge Home Discharge Time: > 30 minutes Discharge Instructions DIET: Follow Instructions for: Heart Healthy Diet, Diabetic Diet Activities you can perform: Weight Bearing as Camacho, See Additionl Instruction Other Activity Instructions: per PT Follow up Referrals: Oncology - 1 Week with zayra New Medications: Insulin Aspart Inj (Novolog Inj) 100 Unit/Ml Inj 1 UNIT SQ ACHS SLIDING SCALE for dm for 30 Days, INJECTION Insulin Detemir Inj (Levemir Inj) 1,000 unit/ 10 ML Vial 5 UNITS SQ HS for dm for 30 Days, INJECTION Do not mix with any other Insulin. [Amoxicil-Clavulanate] () 500 MG TAB 500 MG PO TID for infx, #19 Continued Medications: Amlodipine Besylate (Norvasc) 5 Mg Tab 5 MG PO DAILY for Blood Pressure Management for 30 Days, TAB 3 Refills Docusate Sodium (Colace) 100 Mg Cap 100 MG PO BID, #20 CAP Pantoprazole Sodium (Protonix) 40 Mg Tab 40 MG PO BID for GI for 90 Days, TAB 3 Refills Neville Hyde MD Aug 25, 2017 11:56
[2017-08-25 12:00] VITALS: BP 134/75; PULSE 81; RESP 17; TEMP 96.9; O2SAT 97
--- NOTE | 2017-08-25 12:50 | HHI.FF ---
Face to Face Verification Diagnosis: (1) Newly diagnosed diabetes (2) Hyponatremia (3) Sepsis (4) UTI (urinary tract infection) (5) Abdominal pain (6) GI bleeding Home Health Nursing Order: Medical education Diabetic education Nursing assessment with vital signs I have seen patient Morgan Salmeron on 08/25/17. My clinical findings support the need for the requested home health care services because: Deconditioned w/ increased weakness Limited ability to care for self Injectable med education/admin I certify that my clinical findings support that this patient is homebound because: Unsafe to leave home unassisted Neville Hyde MD Aug 25, 2017 12:50
[2017-08-25] MEDS ORDERED: ACCUMIS25 (13:52)
[2017-08-25] MEDS ORDERED: BLOOD GLUCOSE M1 KIT (13:52)
[2017-08-25] MEDS ORDERED: INSULIN SYRINGE1 M10 (13:52)
[2017-08-25] MEDS: AMOXICILLIN/CLAVULANATE K 500 MG TAB PO SCH ×3 (14:33→17:34)
[2017-08-25] MEDS ORDERED: NOVOLOGP2 SQ ×2 (18:32→18:35)
[2017-08-25] MEDS ORDERED: NOVONP2 SQ (18:35)
== END 2017-08-25 18:42 | disposition home health service (06) | DRG 854 ==
LOC: NEPE 11:27 → NEDA 16:44 → N07A 19:30
PROVIDERS: ADMIT Hospitalist; ATTEND Hospitalist
PROC: 0UBC7ZX Excision of Cervix, Via Natural or Artificial Opening, Diagnostic (ICD-10-PCS; principal; 2017-08-16)
PROC: 30233N1 Transfusion of Nonautologous Red Blood Cells into Peripheral Vein, Percutaneous Approach (ICD-10-PCS; 2017-08-16)
PROC: 0DJD8ZZ Inspection of Lower Intestinal Tract, Via Natural or Artificial Opening Endoscopic (ICD-10-PCS; 2017-08-17)
PROC: 0JH60XZ Insertion of Tunneled Vascular Access Device into Chest Subcutaneous Tissue and Fascia, Open Approach (ICD-10-PCS; 2017-08-24)
PROC: 05HM33Z Insertion of Infusion Device into Right Internal Jugular Vein, Percutaneous Approach (ICD-10-PCS; 2017-08-24)
DX: A41.9 Sepsis, unspecified organism (principal); C53.9 Malignant neoplasm of cervix uteri, unspecified; E87.2 Acidosis; N17.9 Acute kidney failure, unspecified; C79.89 Secondary malignant neoplasm of other specified sites; E11.22 Type 2 diabetes mellitus with diabetic chronic kidney disease; N39.0 Urinary tract infection, site not specified; B96.20 Unspecified Escherichia coli [E. coli] as the cause of diseases classified elsewhere; E87.1 Hypo-osmolality and hyponatremia; N13.8 Other obstructive and reflux uropathy; R65.20 Severe sepsis without septic shock; J44.9 Chronic obstructive pulmonary disease, unspecified; N18.9 Chronic kidney disease, unspecified; I12.9 Hypertensive chronic kidney disease with stage 1 through stage 4 chronic kidney disease, or unspecified chronic kidney disease; Z87.891 Personal history of nicotine dependence; R19.5 Other fecal abnormalities; N93.9 Abnormal uterine and vaginal bleeding, unspecified; Z87.11 Personal history of peptic ulcer disease; D50.9 Iron deficiency anemia, unspecified
CPT/HCPCS: 36430; 36561; 51702; 71046; 72197; 74177; 76830; 76856; 76937; 77001; 77263; 77300; 77301; 77334; 77338; 80048; 80053; 80202; 81001; 82565; 82607; 82728; 82746; 82948; 83036; 83540; 83550; 83605; 83690; 84443; 85007; 85014; 85018; 85025; 85027; 85610; 85730; 86850; 86900; 86901; 86920; 86922; 87040; 87077; 87086; 87185; 87186; 87205; 88305; 93005; 93975; 96361; 96365; 99152; 99153; A9579; C1788; C9113; J1642; J1815; J2250; J2543; J3010; J3370; J7030; J7040; J7050; P9016; Q9967

== ENCOUNTER 2018-03-03 14:13 | Inpatient (IN) ==
[2018-03-03] MEDS ORDERED: Morphine Sulfate Inj 8 MG/ML Vial IV.PUSH ONE (15:34)
[2018-03-03] MEDS ORDERED: Sod Chloride 0.9% Inj 1,000 ML IV.SIG ONE (15:34)
[2018-03-03] MEDS ORDERED: Morphine Inj 4 MG/ML Vial IV.PUSH ONE (15:44)
[2018-03-03 16:46] LABS: Baso % (Auto) 0.2 % (0.0-2.0); Eos % (Auto) 0.5 % (0.0-4.0); Hematocrit 24.2 % (35.0-46.0); Hemoglobin 8.3 gm/dL (11.6-15.3); Lymph # (Auto) 0.1 th/mm3 (1.0-4.8); Lymph % (Auto) 2.2 % (9.0-44.0); Mean Corpuscular HGB Conc 34.3 % (32.0-36.0); Mean Corpuscular Hemoglobin 30.8 pg (27.0-34.0); Mean Corpuscular Volume 89.7 fL (80.0-100.0); Mean Platelet Volume 6.5 fL (7.0-11.0); Mono # (Auto) 0.6 th/mm3 (0.0-0.9); Mono % (Auto) 11.5 % (0.0-8.0); Neut # (Auto) 4.1 th/mm3 (1.8-7.7); Neut % (Auto) 85.6 % (16.0-70.0); Platelet Count 224 th/mm3 (150-450); Red Cell Distribution Width 16.7 % (11.6-17.2); White Blood Count 4.8 th/mm3 (4.0-11.0)
--- NOTE | 2018-03-03 16:52 | ED ---
HPI General Chief complaint: Abdominal Pain Stated complaint: Abd & back pain Time Seen by Provider: 03/03/18 15:19 History of Present Illness HPI narrative: Patient is a 62-year-old female with a history of cervical cancer presents emergency department with a months worth of history of abdominal pain throughout her entire abdomen. Is accompanied with nausea with nonbloody emesis since the past 24-48 hours. Patient's been taking her antiemetics at home without significant relief, she states she has been taking some ibuprofen prescribed to her by her cancer doctor Dr. Denise without significant relief. She was dropped off here this afternoon by a relative. States symptoms are moderate, throughout her entire abdomen, no chest pain no shortness of breath, associated signs symptoms and context as above. Related Data Home Medications Medication Instructions Recorded Confirmed amlodipine [Norvasc] 5 mg PO DAILY 03/03/18 03/03/18 dicyclomine 20 mg PO QID 03/03/18 03/03/18 ibuprofen 800 mg PO TID 03/03/18 03/03/18 metoclopramide HCl [Reglan] 10 mg PO TID 03/03/18 03/03/18 ondansetron HCl [Zofran] 8 mg PO TID PRN 03/03/18 03/03/18 potassium chloride 20 meq PO BID 03/03/18 03/03/18 sitagliptin [Januvia] 100 mg PO DAILY 03/03/18 03/03/18 Previous Rx's Medication Instructions Recorded hydrocodone-acetaminophen 1 tab PO Q4H PRN #18 tab 03/08/18 sennosides-docusate sodium [Senna 1 tab PO BID #60 tab 03/08/18 Plus] Allergies Allergy/AdvReac Type Severity Reaction Status Date / Time No Known Allergies Allergy Verified 03/03/18 15:28 Review of Systems ROS: all other systems reviewed are negative [facility] Social History Social History Substance History: No History of Abuse Second Hand Smoke Exposure: No Smoking Status: Former smoker (up to 2-3 PPD ) Tobacco Type: Cigarettes How Often Do You Have a Drink Containing Alcohol: Never Recent Travel in [facility] within the Last 8 Weeks: No Recent Out of Country Travel within the Last 8 Weeks: No Immunization History Tetanus Immunization: >5 Years Hx Influenza Vaccine This Season: No Exam Narrative Exam Narrative: GENERAL: Well-developed well-nourished, appears uncomfortable, SKIN: Focused skin assessment warm/dry. HEAD: Atraumatic. Normocephalic. EYES: Pupils equal and round. No scleral icterus. No injection or drainage. ENT: No nasal bleeding or discharge. Mucous membranes pink and moist. NECK: Trachea midline. No JVD. CARDIOVASCULAR: Regular rate and rhythm. No murmur appreciated. RESPIRATORY: No accessory muscle use. Clear to auscultation. Breath sounds equal bilaterally. GASTROINTESTINAL: Minimally tender throughout all 4 quadrants, hyperactive bowel sounds, tympanic to percussion, mildly distended. No rebound no percussive tenderness, no masses palpable. MUSCULOSKELETAL: No obvious deformities. No clubbing. No cyanosis. No edema. NEUROLOGICAL: Awake and alert. No obvious cranial nerve deficits. Motor grossly within normal limits. Normal speech. PSYCHIATRIC: Appropriate mood and affect; insight and judgment normal. Course Initial Documented Vital Signs Temperature 98.4 F 03/03/18 14:28 Respiratory Rate 16 03/03/18 14:28 Blood Pressure 95/63 L 03/03/18 14:28 Pulse Oximetry 99 03/03/18 14:28 Last Documented Vital Signs Temperature 98.6 F 03/08/18 12:00 Pulse Rate 88 03/08/18 12:00 Respiratory Rate 20 03/08/18 12:00 Blood Pressure 117/68 03/08/18 12:00 Pulse Oximetry 98 03/08/18 12:00 Medical Decision Making MDM Narrative Medical decision making narrative: patient roomed in the ER, appears well. N/V/ D over the past two days. CT scan shows multiple dilated loops of large and small bowel with air fluid levels, hydronephrosis which was demonstrated on CT in december. Patient with s/s of obstipation and probable bowel obstruction from tumor. Stomach not significantly distended. Will be admitted for IVF hydration and surgical consultation (followed by Dr. Denise) Medical Screen Exam Complete: Yes Emergency Medical Condition: Yes Differential Diagnosis Differential Diagnosis: SBO, cancer pain, hydronephrosis. Lab Data Result diagrams: 03/08/18 04:55 03/07/18 05:05 Lab Results 03/03/18 03/03/18 03/03/18 Range/Units 15:20 15:20 18:25 WBC 4.8 (4.0-11.0) th/mm3 RBC 2.70 L (4.00-5.30) mil/mm3 Hgb 8.3 L (11.6-15.3) gm/dL Hct 24.2 L (35.0-46.0) % MCV 89.7 (80.0-100.0) fL MCH 30.8 (27.0-34.0) pg MCHC 34.3 (32.0-36.0) % RDW 16.7 (11.6-17.2) % Plt Count 224 (150-450) th/mm3 MPV 6.5 L (7.0-11.0) fL Neut % (Auto) 85.6 H (16.0-70.0) % Lymph % (Auto) 2.2 L (9.0-44.0) % [place] % (Auto) 11.5 H (0.0-8.0) % Eos % (Auto) 0.5 (0.0-4.0) % Baso % (Auto) 0.2 (0.0-2.0) % Neut # (Auto) 4.1 (1.8-7.7) th/mm3 Lymph # (Auto) 0.1 L (1.0-4.8) th/mm3 [place] # (Auto) 0.6 (0.0-0.9) th/mm3 Eos # (Auto) 0.0 (0.0-0.4) th/mm3 Baso # (Auto) 0.0 (0.0-0.2) th/mm3 WBC Differential . Differential Comment Auto diff final Sodium 136 (136-145) meq/L Potassium 4.5 (3.5-5.1) meq/L Chloride 106 (98-107) meq/L Carbon Dioxide 20.9 L (21.0-32.0) meq/L Anion Gap 9 (5-15) meq/L BUN 16 (7-18) mg/dL Creatinine 1.20 H (0.50-1.00) mg/dL Estimated GFR 55 L (>89) mL/min POC Glucose (68-110) mg/dl Random Glucose 121 H (74-106) mg/dL Calcium 8.7 (8.5-10.1) mg/dL Total Bilirubin 0.5 (0.2-1.0) mg/dL AST 10 L (15-37) U/L ALT 16 (10-53) U/L Alkaline Phosphatase 121 H (45-117) U/L Total Creatine Kinase (26-192) U/L Troponin I (0.02-0.05) ng/mL Total Protein 7.4 (6.4-8.2) g/dL Albumin 2.6 L (3.4-5.0) g/dL Lipase 35 L (73-393) U/L Urine Color Straw (Yellw/Straw) Urine Clarity Clear (Clear) Urine pH 5.0 (5.0-8.5) Ur Specific Quinter 1.014 (1.002-1.035) Urine Protein Negative (Neg-Trace) mg/dL Urine Glucose (UA) Negative (Negative) mg/dL Urine Ketones Negative (Negative) mg/dL Urine Occult Blood Negative (Negative) Urine Nitrate Negative (Negative) Urine Bilirubin Negative (Negative) Urine Urobilinogen Less than 2 (Less than 2) mg/dL Ur Leukocyte Esterase Trace H (Negative) Urine RBC Less than 1 (0-3) /hpf Urine WBC 8 H (0-5) /hpf Ur Squamous Epith Cells 1 (0-5) /hpf Urine Bacteria Occasional H (None) /hpf Urine Mucus Few H (Occasional) /lpf Micro UA Comment Culture not ind Ur Microscopic Review Not Reportable Urine Culture Comments Culture not ind Blood Type Antibody Screen MTS Gel Crossmatch 03/03/18 03/03/18 03/04/18 Range/Units 21:52 22:40 04:50 WBC (4.0-11.0) th/mm3 RBC (4.00-5.30) mil/mm3 Hgb (11.6-15.3) gm/dL Hct (35.0-46.0) % MCV (80.0-100.0) fL MCH (27.0-34.0) pg MCHC (32.0-36.0) % RDW (11.6-17.2) % Plt Count (150-450) th/mm3 MPV (7.0-11.0) fL Neut % (Auto) (16.0-70.0) % Lymph % (Auto) (9.0-44.0) % [place] % (Auto) (0.0-8.0) % Eos % (Auto) (0.0-4.0) % Baso % (Auto) (0.0-2.0) % Neut # (Auto) (1.8-7.7) th/mm3 Lymph # (Auto) (1.0-4.8) th/mm3 [place] # (Auto) (0.0-0.9) th/mm3 Eos # (Auto) (0.0-0.4) th/mm3 Baso # (Auto) (0.0-0.2) th/mm3 WBC Differential Differential Comment Sodium (136-145) meq/L Potassium (3.5-5.1) meq/L Chloride (98-107) meq/L Carbon Dioxide (21.0-32.0) meq/L Anion Gap (5-15) meq/L BUN (7-18) mg/dL Creatinine (0.50-1.00) mg/dL Estimated GFR (>89) mL/min POC Glucose 100 (68-110) mg/dl Random Glucose (74-106) mg/dL Calcium (8.5-10.1) mg/dL Total Bilirubin (0.2-1.0) mg/dL AST (15-37) U/L ALT (10-53) U/L Alkaline Phosphatase (45-117) U/L Total Creatine Kinase 22 L 24 L (26-192) U/L Troponin I Less than 0.02 L Less than 0.02 L (0.02-0.05) ng/mL Total Protein (6.4-8.2) g/dL Albumin (3.4-5.0) g/dL Lipase (73-393) U/L Urine Color (Yellw/Straw) Urine Clarity (Clear) Urine pH (5.0-8.5) Ur Specific Qu[place] (1.002-1.035) Urine Protein (Neg-Trace) mg/dL Urine Glucose (UA) (Negative) mg/dL Urine Ketones (Negative) mg/dL Urine Occult Blood (Negative) Urine Nitrate (Negative) Urine Bilirubin (Negative) Urine Urobilinogen (Less than 2) mg/dL Ur Leukocyte Esterase (Negative) Urine RBC (0-3) /hpf Urine WBC (0-5) /hpf Ur Squamous Epith Cells (0-5) /hpf Urine Bacteria (None) /hpf Urine Mucus (Occasional) /lpf Micro UA Comment Ur Microscopic Review Urine Culture Comments Blood Type Antibody Screen MTS Gel Crossmatch 03/04/18 03/04/18 03/04/18 Range/Units 04:50 04:50 08:16 WBC 4.1 (4.0-11.0) th/mm3 RBC 2.45 L (4.00-5.30) mil/mm3 Hgb 7.6 L (11.6-15.3) gm/dL Hct 22.2 L (35.0-46.0) % MCV 90.4 (80.0-100.0) fL MCH 30.9 (27.0-34.0) pg MCHC 34.2 (32.0-36.0) % RDW 17.6 H (11.6-17.2) % Plt Count 204 (150-450) th/mm3 MPV 6.2 L (7.0-11.0) fL Neut % (Auto) 84.5 H (16.0-70.0) % Lymph % (Auto) 2.5 L (9.0-44.0) % [place] % (Auto) 12.1 H (0.0-8.0) % Eos % (Auto) 0.6 (0.0-4.0) % Baso % (Auto) 0.3 (0.0-2.0) % Neut # (Auto) 3.4 (1.8-7.7) th/mm3 Lymph # (Auto) 0.1 L (1.0-4.8) th/mm3 [place] # (Auto) 0.5 (0.0-0.9) th/mm3 Eos # (Auto) 0.0 (0.0-0.4) th/mm3 Baso # (Auto) 0.0 (0.0-0.2) th/mm3 WBC Differential . Differential Comment Auto diff final Sodium 138 (136-145) meq/L Potassium 4.6 (3.5-5.1) meq/L Chloride 108 H (98-107) meq/L Carbon Dioxide 21.8 (21.0-32.0) meq/L Anion Gap 8 (5-15) meq/L BUN 12 (7-18) mg/dL Creatinine 1.12 H (0.50-1.00) mg/dL Estimated GFR 60 L (>89) mL/min POC Glucose 123 H (68-110) mg/dl Random Glucose 117 H (74-106) mg/dL Calcium 8.2 L (8.5-10.1) mg/dL Total Bilirubin 0.4 (0.2-1.0) mg/dL AST 9 L (15-37) U/L ALT 13 (10-53) U/L Alkaline Phosphatase 105 (45-117) U/L Total Creatine Kinase (26-192) U/L Troponin I (0.02-0.05) ng/mL Total Protein 6.9 (6.4-8.2) g/dL Albumin 2.3 L (3.4-5.0) g/dL Lipase (73-393) U/L Urine Color (Yellw/Straw) Urine Clarity (Clear) Urine pH (5.0-8.5) Ur Specific Quinter (1.002-1.035) Urine Protein (Neg-Trace) mg/dL Urine Glucose (UA) (Negative) mg/dL Urine Ketones (Negative) mg/dL Urine Occult Blood (Negative) Urine Nitrate (Negative) Urine Bilirubin (Negative) Urine Urobilinogen (Less than 2) mg/dL Ur Leukocyte Esterase (Negative) Urine RBC (0-3) /hpf Urine WBC (0-5) /hpf Ur Squamous Epith Cells (0-5) /hpf Urine Bacteria (None) /hpf Urine Mucus (Occasional) /lpf Micro UA Comment Ur Microscopic Review Urine Culture Comments Blood Type Antibody Screen MTS Gel Crossmatch 03/04/18 03/04/18 03/04/18 Range/Units 10:37 18:45 20:22 WBC (4.0-11.0) th/mm3 RBC (4.00-5.30) mil/mm3 Hgb (11.6-15.3) gm/dL Hct (35.0-46.0) % MCV (80.0-100.0) fL MCH (27.0-34.0) pg MCHC (32.0-36.0) % RDW (11.6-17.2) % Plt Count (150-450) th/mm3 MPV (7.0-11.0) fL Neut % (Auto) (16.0-70.0) % Lymph % (Auto) (9.0-44.0) % [place] % (Auto) (0.0-8.0) % Eos % (Auto) (0.0-4.0) % Baso % (Auto) (0.0-2.0) % Neut # (Auto) (1.8-7.7) th/mm3 Lymph # (Auto) (1.0-4.8) th/mm3 [place] # (Auto) (0.0-0.9) th/mm3 Eos # (Auto) (0.0-0.4) th/mm3 Baso # (Auto) (0.0-0.2) th/mm3 WBC Differential Differential Comment Sodium (136-145) meq/L Potassium (3.5-5.1) meq/L Chloride (98-107) meq/L Carbon Dioxide (21.0-32.0) meq/L Anion Gap (5-15) meq/L BUN (7-18) mg/dL Creatinine (0.50-1.00) mg/dL Estimated GFR (>89) mL/min POC Glucose 149 H 163 H (68-110) mg/dl Random Glucose (74-106) mg/dL Calcium (8.5-10.1) mg/dL Total Bilirubin (0.2-1.0) mg/dL AST (15-37) U/L ALT (10-53) U/L Alkaline Phosphatase (45-117) U/L Total Creatine Kinase (26-192) U/L Troponin I (0.02-0.05) ng/mL Total Protein (6.4-8.2) g/dL Albumin (3.4-5.0) g/dL Lipase (73-393) U/L Urine Color (Yellw/Straw) Urine Clarity (Clear) Urine pH (5.0-8.5) Ur Specific Qu[place] (1.002-1.035) Urine Protein (Neg-Trace) mg/dL Urine Glucose (UA) (Negative) mg/dL Urine Ketones (Negative) mg/dL Urine Occult Blood (Negative) Urine Nitrate (Negative) Urine Bilirubin (Negative) Urine Urobilinogen (Less than 2) mg/dL Ur Leukocyte Esterase (Negative) Urine RBC (0-3) /hpf Urine WBC (0-5) /hpf Ur Squamous Epith Cells (0-5) /hpf Urine Bacteria (None) /hpf Urine Mucus (Occasional) /lpf Micro UA Comment Ur Microscopic Review Urine Culture Comments Blood Type O Positive Antibody Screen Negative MTS Gel Crossmatch See Detail 03/05/18 03/05/18 03/05/18 Range/Units 04:07 04:07 08:21 WBC 3.8 L (4.0-11.0) th/mm3 RBC 2.43 L (4.00-5.30) mil/mm3 Hgb 7.4 L (11.6-15.3) gm/dL Hct 22.1 L (35.0-46.0) % MCV 91.0 (80.0-100.0) fL MCH 30.6 (27.0-34.0) pg MCHC 33.7 (32.0-36.0) % RDW 17.5 H (11.6-17.2) % Plt Count 193 (150-450) th/mm3 MPV 6.2 L (7.0-11.0) fL Neut % (Auto) (16.0-70.0) % Lymph % (Auto) (9.0-44.0) % [place] % (Auto) (0.0-8.0) % Eos % (Auto) (0.0-4.0) % Baso % (Auto) (0.0-2.0) % Neut # (Auto) (1.8-7.7) th/mm3 Lymph # (Auto) (1.0-4.8) th/mm3 [place] # (Auto) (0.0-0.9) th/mm3 Eos # (Auto) (0.0-0.4) th/mm3 Baso # (Auto) (0.0-0.2) th/mm3 WBC Differential Differential Comment Sodium 143 (136-145) meq/L Potassium 4.0 (3.5-5.1) meq/L Chloride 111 H (98-107) meq/L Carbon Dioxide 21.8 (21.0-32.0) meq/L Anion Gap 10 (5-15) meq/L BUN 10 (7-18) mg/dL Creatinine 0.99 (0.50-1.00) mg/dL Estimated GFR 69 L (>89) mL/min POC Glucose 139 H (68-110) mg/dl Random Glucose 126 H (74-106) mg/dL Calcium 8.5 (8.5-10.1) mg/dL Total Bilirubin (0.2-1.0) mg/dL AST (15-37) U/L ALT (10-53) U/L Alkaline Phosphatase (45-117) U/L Total Creatine Kinase (26-192) U/L Troponin I (0.02-0.05) ng/mL Total Protein (6.4-8.2) g/dL Albumin (3.4-5.0) g/dL Lipase (73-393) U/L Urine Color (Yellw/Straw) Urine Clarity (Clear) Urine pH (5.0-8.5) Ur Specific Qu[place] (1.002-1.035) Urine Protein (Neg-Trace) mg/dL Urine Glucose (UA) (Negative) mg/dL Urine Ketones (Negative) mg/dL Urine Occult Blood (Negative) Urine Nitrate (Negative) Urine Bilirubin (Negative) Urine Urobilinogen (Less than 2) mg/dL Ur Leukocyte Esterase (Negative) Urine RBC (0-3) /hpf Urine WBC (0-5) /hpf Ur Squamous Epith Cells (0-5) /hpf Urine Bacteria (None) /hpf Urine Mucus (Occasional) /lpf Micro UA Comment Ur Microscopic Review Urine Culture Comments Blood Type Antibody Screen MTS Gel Crossmatch 03/05/18 03/05/18 03/05/18 Range/Units 12:23 17:10 17:40 WBC (4.0-11.0) th/mm3 RBC (4.00-5.30) mil/mm3 Hgb 7.6 L (11.6-15.3) gm/dL Hct 22.6 L (35.0-46.0) % MCV (80.0-100.0) fL MCH (27.0-34.0) pg MCHC (32.0-36.0) % RDW (11.6-17.2) % Plt Count (150-450) th/mm3 MPV (7.0-11.0) fL Neut % (Auto) (16.0-70.0) % Lymph % (Auto) (9.0-44.0) % [place] % (Auto) (0.0-8.0) % Eos % (Auto) (0.0-4.0) % Baso % (Auto) (0.0-2.0) % Neut # (Auto) (1.8-7.7) th/mm3 Lymph # (Auto) (1.0-4.8) th/mm3 [place] # (Auto) (0.0-0.9) th/mm3 Eos # (Auto) (0.0-0.4) th/mm3 Baso # (Auto) (0.0-0.2) th/mm3 WBC Differential Differential Comment Sodium (136-145) meq/L Potassium (3.5-5.1) meq/L Chloride (98-107) meq/L Carbon Dioxide (21.0-32.0) meq/L Anion Gap (5-15) meq/L BUN (7-18) mg/dL Creatinine (0.50-1.00) mg/dL Estimated GFR (>89) mL/min POC Glucose 141 H 153 H (68-110) mg/dl Random Glucose (74-106) mg/dL Calcium (8.5-10.1) mg/dL Total Bilirubin (0.2-1.0) mg/dL AST (15-37) U/L ALT (10-53) U/L Alkaline Phosphatase (45-117) U/L Total Creatine Kinase (26-192) U/L Troponin I (0.02-0.05) ng/mL Total Protein (6.4-8.2) g/dL Albumin (3.4-5.0) g/dL Lipase (73-393) U/L Urine Color (Yellw/Straw) Urine Clarity (Clear) Urine pH (5.0-8.5) Ur Specific Quinter (1.002-1.035) Urine Protein (Neg-Trace) mg/dL Urine Glucose (UA) (Negative) mg/dL Urine Ketones (Negative) mg/dL Urine Occult Blood (Negative) Urine Nitrate (Negative) Urine Bilirubin (Negative) Urine Urobilinogen (Less than 2) mg/dL Ur Leukocyte Esterase (Negative) Urine RBC (0-3) /hpf Urine WBC (0-5) /hpf Ur Squamous Epith Cells (0-5) /hpf Urine Bacteria (None) /hpf Urine Mucus (Occasional) /lpf Micro UA Comment Ur Microscopic Review Urine Culture Comments Blood Type Antibody Screen MTS Gel Crossmatch 03/05/18 03/06/18 03/06/18 Range/Units 23:53 04:20 04:20 WBC 5.0 (4.0-11.0) th/mm3 RBC 2.37 L (4.00-5.30) mil/mm3 Hgb 7.4 L (11.6-15.3) gm/dL Hct 21.7 L (35.0-46.0) % MCV 91.4 (80.0-100.0) fL MCH 31.1 (27.0-34.0) pg MCHC 34.0 (32.0-36.0) % RDW 17.7 H (11.6-17.2) % Plt Count 198 (150-450) th/mm3 MPV 6.3 L (7.0-11.0) fL Neut % (Auto) (16.0-70.0) % Lymph % (Auto) (9.0-44.0) % [place] % (Auto) (0.0-8.0) % Eos % (Auto) (0.0-4.0) % Baso % (Auto) (0.0-2.0) % Neut # (Auto) (1.8-7.7) th/mm3 Lymph # (Auto) (1.0-4.8) th/mm3 [place] # (Auto) (0.0-0.9) th/mm3 Eos # (Auto) (0.0-0.4) th/mm3 Baso # (Auto) (0.0-0.2) th/mm3 WBC Differential Differential Comment Sodium 140 (136-145) meq/L Potassium 4.0 (3.5-5.1) meq/L Chloride 109 H (98-107) meq/L Carbon Dioxide 21.6 (21.0-32.0) meq/L Anion Gap 9 (5-15) meq/L BUN 8 (7-18) mg/dL Creatinine 1.00 (0.50-1.00) mg/dL Estimated GFR 68 L (>89) mL/min POC Glucose 193 H (68-110) mg/dl Random Glucose 101 (74-106) mg/dL Calcium 8.1 L (8.5-10.1) mg/dL Total Bilirubin (0.2-1.0) mg/dL AST (15-37) U/L ALT (10-53) U/L Alkaline Phosphatase (45-117) U/L Total Creatine Kinase (26-192) U/L Troponin I (0.02-0.05) ng/mL Total Protein (6.4-8.2) g/dL Albumin (3.4-5.0) g/dL Lipase (73-393) U/L Urine Color (Yellw/Straw) Urine Clarity (Clear) Urine pH (5.0-8.5) Ur Specific Quinter (1.002-1.035) Urine Protein (Neg-Trace) mg/dL Urine Glucose (UA) (Negative) mg/dL Urine Ketones (Negative) mg/dL Urine Occult Blood (Negative) Urine Nitrate (Negative) Urine Bilirubin (Negative) Urine Urobilinogen (Less than 2) mg/dL Ur Leukocyte Esterase (Negative) Urine RBC (0-3) /hpf Urine WBC (0-5) /hpf Ur Squamous Epith Cells (0-5) /hpf Urine Bacteria (None) /hpf Urine Mucus (Occasional) /lpf Micro UA Comment Ur Microscopic Review Urine Culture Comments Blood Type Antibody Screen MTS Gel Crossmatch 03/06/18 03/06/18 03/06/18 Range/Units 07:33 10:36 13:19 WBC (4.0-11.0) th/mm3 RBC (4.00-5.30) mil/mm3 Hgb (11.6-15.3) gm/dL Hct (35.0-46.0) % MCV (80.0-100.0) fL MCH (27.0-34.0) pg MCHC (32.0-36.0) % RDW (11.6-17.2) % Plt Count (150-450) th/mm3 MPV (7.0-11.0) fL Neut % (Auto) (16.0-70.0) % Lymph % (Auto) (9.0-44.0) % [place] % (Auto) (0.0-8.0) % Eos % (Auto) (0.0-4.0) % Baso % (Auto) (0.0-2.0) % Neut # (Auto) (1.8-7.7) th/mm3 Lymph # (Auto) (1.0-4.8) th/mm3 [place] # (Auto) (0.0-0.9) th/mm3 Eos # (Auto) (0.0-0.4) th/mm3 Baso # (Auto) (0.0-0.2) th/mm3 WBC Differential Differential Comment Sodium (136-145) meq/L Potassium (3.5-5.1) meq/L Chloride (98-107) meq/L Carbon Dioxide (21.0-32.0) meq/L Anion Gap (5-15) meq/L BUN (7-18) mg/dL Creatinine (0.50-1.00) mg/dL Estimated GFR (>89) mL/min POC Glucose 124 H 107 177 H (68-110) mg/dl Random Glucose (74-106) mg/dL Calcium (8.5-10.1) mg/dL Total Bilirubin (0.2-1.0) mg/dL AST (15-37) U/L ALT (10-53) U/L Alkaline Phosphatase (45-117) U/L Total Creatine Kinase (26-192) U/L Troponin I (0.02-0.05) ng/mL Total Protein (6.4-8.2) g/dL Albumin (3.4-5.0) g/dL Lipase (73-393) U/L Urine Color (Yellw/Straw) Urine Clarity (Clear) Urine pH (5.0-8.5) Ur Specific Quinter (1.002-1.035) Urine Protein (Neg-Trace) mg/dL Urine Glucose (UA) (Negative) mg/dL Urine Ketones (Negative) mg/dL Urine Occult Blood (Negative) Urine Nitrate (Negative) Urine Bilirubin (Negative) Urine Urobilinogen (Less than 2) mg/dL Ur Leukocyte Esterase (Negative) Urine RBC (0-3) /hpf Urine WBC (0-5) /hpf Ur Squamous Epith Cells (0-5) /hpf Urine Bacteria (None) /hpf Urine Mucus (Occasional) /lpf Micro UA Comment Ur Microscopic Review Urine Culture Comments Blood Type Antibody Screen MTS Gel Crossmatch 03/06/18 03/06/18 03/06/18 Range/Units 16:29 20:10 22:47 WBC (4.0-11.0) th/mm3 RBC (4.00-5.30) mil/mm3 Hgb 7.7 L (11.6-15.3) gm/dL Hct 21.9 L (35.0-46.0) % MCV (80.0-100.0) fL MCH (27.0-34.0) pg MCHC (32.0-36.0) % RDW (11.6-17.2) % Plt Count (150-450) th/mm3 MPV (7.0-11.0) fL Neut % (Auto) (16.0-70.0) % Lymph % (Auto) (9.0-44.0) % [place] % (Auto) (0.0-8.0) % Eos % (Auto) (0.0-4.0) % Baso % (Auto) (0.0-2.0) % Neut # (Auto) (1.8-7.7) th/mm3 Lymph # (Auto) (1.0-4.8) th/mm3 [place] # (Auto) (0.0-0.9) th/mm3 Eos # (Auto) (0.0-0.4) th/mm3 Baso # (Auto) (0.0-0.2) th/mm3 WBC Differential Differential Comment Sodium (136-145) meq/L Potassium (3.5-5.1) meq/L Chloride (98-107) meq/L Carbon Dioxide (21.0-32.0) meq/L Anion Gap (5-15) meq/L BUN (7-18) mg/dL Creatinine (0.50-1.00) mg/dL Estimated GFR (>89) mL/min POC Glucose 304 H 99 (68-110) mg/dl Random Glucose (74-106) mg/dL Calcium (8.5-10.1) mg/dL Total Bilirubin (0.2-1.0) mg/dL AST (15-37) U/L ALT (10-53) U/L Alkaline Phosphatase (45-117) U/L Total Creatine Kinase (26-192) U/L Troponin I (0.02-0.05) ng/mL Total Protein (6.4-8.2) g/dL Albumin (3.4-5.0) g/dL Lipase (73-393) U/L Urine Color (Yellw/Straw) Urine Clarity (Clear) Urine pH (5.0-8.5) Ur Specific Quinter (1.002-1.035) Urine Protein (Neg-Trace) mg/dL Urine Glucose (UA) (Negative) mg/dL Urine Ketones (Negative) mg/dL Urine Occult Blood (Negative) Urine Nitrate (Negative) Urine Bilirubin (Negative) Urine Urobilinogen (Less than 2) mg/dL Ur Leukocyte Esterase (Negative) Urine RBC (0-3) /hpf Urine WBC (0-5) /hpf Ur Squamous Epith Cells (0-5) /hpf Urine Bacteria (None) /hpf Urine Mucus (Occasional) /lpf Micro UA Comment Ur Microscopic Review Urine Culture Comments Blood Type Antibody Screen MTS Gel Crossmatch 03/07/18 03/07/18 03/07/18 Range/Units 05:05 05:05 08:04 WBC 5.0 (4.0-11.0) th/mm3 RBC 2.51 L (4.00-5.30) mil/mm3 Hgb 7.7 L (11.6-15.3) gm/dL Hct 22.9 L (35.0-46.0) % MCV 91.1 (80.0-100.0) fL MCH 30.6 (27.0-34.0) pg MCHC 33.6 (32.0-36.0) % RDW 17.8 H (11.6-17.2) % Plt Count 230 (150-450) th/mm3 MPV 6.4 L (7.0-11.0) fL Neut % (Auto) (16.0-70.0) % Lymph % (Auto) (9.0-44.0) % [place] % (Auto) (0.0-8.0) % Eos % (Auto) (0.0-4.0) % Baso % (Auto) (0.0-2.0) % Neut # (Auto) (1.8-7.7) th/mm3 Lymph # (Auto) (1.0-4.8) th/mm3 [place] # (Auto) (0.0-0.9) th/mm3 Eos # (Auto) (0.0-0.4) th/mm3 Baso # (Auto) (0.0-0.2) th/mm3 WBC Differential Differential Comment Sodium 138 (136-145) meq/L Potassium 3.7 (3.5-5.1) meq/L Chloride 107 (98-107) meq/L Carbon Dioxide 22.8 (21.0-32.0) meq/L Anion Gap 8 (5-15) meq/L BUN 9 (7-18) mg/dL Creatinine 0.91 (0.50-1.00) mg/dL Estimated GFR 76 L (>89) mL/min POC Glucose 103 (68-110) mg/dl Random Glucose 85 (74-106) mg/dL Calcium 8.3 L (8.5-10.1) mg/dL Total Bilirubin (0.2-1.0) mg/dL AST (15-37) U/L ALT (10-53) U/L Alkaline Phosphatase (45-117) U/L Total Creatine Kinase (26-192) U/L Troponin I (0.02-0.05) ng/mL Total Protein (6.4-8.2) g/dL Albumin (3.4-5.0) g/dL Lipase (73-393) U/L Urine Color (Yellw/Straw) Urine Clarity (Clear) Urine pH (5.0-8.5) Ur Specific [place] (1.002-1.035) Urine Protein (Neg-Trace) mg/dL Urine Glucose (UA) (Negative) mg/dL Urine Ketones (Negative) mg/dL Urine Occult Blood (Negative) Urine Nitrate (Negative) Urine Bilirubin (Negative) Urine Urobilinogen (Less than 2) mg/dL Ur Leukocyte Esterase (Negative) Urine RBC (0-3) /hpf Urine WBC (0-5) /hpf Ur Squamous Epith Cells (0-5) /hpf Urine Bacteria (None) /hpf Urine Mucus (Occasional) /lpf Micro UA Comment Ur Microscopic Review Urine Culture Comments Blood Type Antibody Screen MTS Gel Crossmatch 03/07/18 03/07/18 03/07/18 Range/Units 12:36 16:49 23:30 WBC (4.0-11.0) th/mm3 RBC (4.00-5.30) mil/mm3 Hgb (11.6-15.3) gm/dL Hct (35.0-46.0) % MCV (80.0-100.0) fL MCH (27.0-34.0) pg MCHC (32.0-36.0) % RDW (11.6-17.2) % Plt Count (150-450) th/mm3 MPV (7.0-11.0) fL Neut % (Auto) (16.0-70.0) % Lymph % (Auto) (9.0-44.0) % [place] % (Auto) (0.0-8.0) % Eos % (Auto) (0.0-4.0) % Baso % (Auto) (0.0-2.0) % Neut # (Auto) (1.8-7.7) th/mm3 Lymph # (Auto) (1.0-4.8) th/mm3 [place] # (Auto) (0.0-0.9) th/mm3 Eos # (Auto) (0.0-0.4) th/mm3 Baso # (Auto) (0.0-0.2) th/mm3 WBC Differential Differential Comment Sodium (136-145) meq/L Potassium (3.5-5.1) meq/L Chloride (98-107) meq/L Carbon Dioxide (21.0-32.0) meq/L Anion Gap (5-15) meq/L BUN (7-18) mg/dL Creatinine (0.50-1.00) mg/dL Estimated GFR (>89) mL/min POC Glucose 130 H 159 H 123 H (68-110) mg/dl Random Glucose (74-106) mg/dL Calcium (8.5-10.1) mg/dL Total Bilirubin (0.2-1.0) mg/dL AST (15-37) U/L ALT (10-53) U/L Alkaline Phosphatase (45-117) U/L Total Creatine Kinase (26-192) U/L Troponin I (0.02-0.05) ng/mL Total Protein (6.4-8.2) g/dL Albumin (3.4-5.0) g/dL Lipase (73-393) U/L Urine Color (Yellw/Straw) Urine Clarity (Clear) Urine pH (5.0-8.5) Ur Specific [place] (1.002-1.035) Urine Protein (Neg-Trace) mg/dL Urine Glucose (UA) (Negative) mg/dL Urine Ketones (Negative) mg/dL Urine Occult Blood (Negative) Urine Nitrate (Negative) Urine Bilirubin (Negative) Urine Urobilinogen (Less than 2) mg/dL Ur Leukocyte Esterase (Negative) Urine RBC (0-3) /hpf Urine WBC (0-5) /hpf Ur Squamous Epith Cells (0-5) /hpf Urine Bacteria (None) /hpf Urine Mucus (Occasional) /lpf Micro UA Comment Ur Microscopic Review Urine Culture Comments Blood Type Antibody Screen MTS Gel Crossmatch 03/08/18 03/08/18 03/08/18 Range/Units 04:55 08:51 12:41 WBC (4.0-11.0) th/mm3 RBC (4.00-5.30) mil/mm3 Hgb 7.4 L (11.6-15.3) gm/dL Hct 21.4 L (35.0-46.0) % MCV (80.0-100.0) fL MCH (27.0-34.0) pg MCHC (32.0-36.0) % RDW (11.6-17.2) % Plt Count (150-450) th/mm3 MPV (7.0-11.0) fL Neut % (Auto) (16.0-70.0) % Lymph % (Auto) (9.0-44.0) % [place] % (Auto) (0.0-8.0) % Eos % (Auto) (0.0-4.0) % Baso % (Auto) (0.0-2.0) % Neut # (Auto) (1.8-7.7) th/mm3 Lymph # (Auto) (1.0-4.8) th/mm3 [place] # (Auto) (0.0-0.9) th/mm3 Eos # (Auto) (0.0-0.4) th/mm3 Baso # (Auto) (0.0-0.2) th/mm3 WBC Differential Differential Comment Sodium (136-145) meq/L Potassium (3.5-5.1) meq/L Chloride (98-107) meq/L Carbon Dioxide (21.0-32.0) meq/L Anion Gap (5-15) meq/L BUN (7-18) mg/dL Creatinine (0.50-1.00) mg/dL Estimated GFR (>89) mL/min POC Glucose 118 H 153 H (68-110) mg/dl Random Glucose (74-106) mg/dL Calcium (8.5-10.1) mg/dL Total Bilirubin (0.2-1.0) mg/dL AST (15-37) U/L ALT (10-53) U/L Alkaline Phosphatase (45-117) U/L Total Creatine Kinase (26-192) U/L Troponin I (0.02-0.05) ng/mL Total Protein (6.4-8.2) g/dL Albumin (3.4-5.0) g/dL Lipase (73-393) U/L Urine Color (Yellw/Straw) Urine Clarity (Clear) Urine pH (5.0-8.5) Ur Specific [place] (1.002-1.035) Urine Protein (Neg-Trace) mg/dL Urine Glucose (UA) (Negative) mg/dL Urine Ketones (Negative) mg/dL Urine Occult Blood (Negative) Urine Nitrate (Negative) Urine Bilirubin (Negative) Urine Urobilinogen (Less than 2) mg/dL Ur Leukocyte Esterase (Negative) Urine RBC (0-3) /hpf Urine WBC (0-5) /hpf Ur Squamous Epith Cells (0-5) /hpf Urine Bacteria (None) /hpf Urine Mucus (Occasional) /lpf Micro UA Comment Ur Microscopic Review Urine Culture Comments Blood Type Antibody Screen MTS Gel Crossmatch Imaging Data Radiologist's impression: Chest X-Ray 03/03/18 00:00 CONCLUSION: No acute cardiopulmonary disease. Abdomen/Pelvis CT 03/03/18 16:54 There is a noncalcified nodule in the left lower lobe again seen on axial image 1. Review of bone windows demonstrate levoscoliosis and degenerative changes of the lumbar spine. There are no pleural or pericardial effusions. Liver, gallbladder, spleen, pancreas, adrenal glands unremarkable. There is cortical thinning of both kidneys with parenchymal scarring of the right kidney noted. There is mild right-sided hydronephrosis again seen. There is severe left hydronephrosis with decreased enhancement of the left kidney as compared to the right, and there is severe left hydroureter identified. This extends distally into the pelvis, distal left ureter obscured on axial image 66. This is secondary to a heterogeneous soft tissue mass at the level of the cervix. There is fluid and air seen centrally within this mass on axial image 72. This measures approximately 5.1 x 6.8 cm in AP and transverse dimension, likely stable in size. There is abnormal thickening of the endometrial stripe versus fluid expanding the endometrial cavity up to 3.4 cm in transverse dimension. There is a mass at the uterine fundus to the left of midline measuring 2.9 x 2.5 cm in AP transverse dimension. There is adenopathy in the retroperitoneum identified. The left para-aortic lymph node identified previously is decreased in size today measuring 1.6 cm in short axis dimension, previously 2.6 cm in short axis dimension. CONCLUSION: 1. Irregular ill-defined mass at the level of the cervix with either necrosis or abnormal fluid and air distending the endocervical region, and endometrial thickening versus fluid distending the endometrial cavity. This is consistent with the patient's known cervical carcinoma. 2. Severe left hydronephrosis and mild right hydronephrosis and hydroureter identified. There is decreased enhancement of the left kidney as compared to the right. 3. Left lower lobe pulmonary nodule is stable. 4. Left para-aortic necrotic lymph node is decreased in size today. Abdomen X-Ray 03/04/18 02:30 CONCLUSION: The nasogastric tube is coiled in the upper stomach. Chest X-Ray 03/07/18 00:00 CONCLUSION: No acute cardiopulmonary abnormality is identified. The multiple bilateral pulmonary nodules described on the prior CT from 12/21/2017 are not appreciated on this examination. Discharge Plan Discharge Disposition Patient Disposition: 01 Discharge Home Discharge Condition Condition: Stable Discharge Order Discharge Orders: Discharge Order (Routine); Ordered 03/08/18 Ordered By: Aj Grewal Discharge Details Anticipated Discharge Date: 03/08/18 Physicians Team ED Provider: Hernan Srivastava Primary Care Provider: NON STAFF,PROVIDER Attending Provider: Halie Reynolds Other Providers: Kory Gallardo ; [email or web address] ; Anai Marks ; Nabeel Fagan ED Status: Left Department Discharge Information Discharge Date/Time: 03/03/18 21:40
[2018-03-03 16:59] LABS: Alanine Aminotransferase 16 U/L (10-53); Albumin 2.6 g/dL (3.4-5.0); Anion Gap 9 meq/L (5-15); Aspartate Aminotransferase 10 U/L (15-37); Blood Urea Nitrogen 16 mg/dL (7-18); Calcium 8.7 mg/dL (8.5-10.1); Carbon Dioxide 20.9 meq/L (21.0-32.0); Chloride 106 meq/L (98-107); Glomerular Filtration Rate 55 mL/min (>89); Glucose,Random 121 mg/dL (74-106); Lipase 35 U/L (73-393); Potassium 4.5 meq/L (3.5-5.1); Sodium 136 meq/L (136-145)
[2018-03-03 17:01] LABS: Alkaline Phosphatase 121 U/L (45-117); Total Protein 7.4 g/dL (6.4-8.2)
--- NOTE | 2018-03-03 17:37 | CT ---
EXAM DATE: 03/03/2018 5:26 PM EDT AGE/SEX: 62 years / Female INDICATIONS: Abdomen pain. CLINICAL DATA: This is the patient's initial encounter. Patient reports that signs and symptoms have been present for 1 day and indicates a pain score of 5/10. MEDICAL/SURGICAL HISTORY: Carcinoma, cervical. Mets None. ORAL CONTRAST: No oral contrast ingested. RADIATION DOSE: 6.57 CTDI (mGy) COMPARISON: [facility] – [place] ABDOMEN & PELVIS W/O CONTRAST, 12/21/2017. . TECHNIQUE: Multiple contiguous axial images were obtained through the abdomen and pelvis following b olus infusion of 75 ml Omnipaque 350 (iohexol) nonionic water-soluble contrast as a single exam dos e. No oral contrast ingested. Using automated exposure control and adjustment of the mA and/or kV ac cording to patient size, radiation dose was kept as low as reasonably achievable to obtain optimal di agnostic quality images. DICOM format image data is available electronically for review and comparis on. FINDINGS: There is a noncalcified nodule in the left lower lobe again seen on axial image 1. Review of bone win dows demonstrate levoscoliosis and degenerative changes of the lumbar spine. There are no pleural or pericardial effusions. Liver, gallbladder, spleen, pancreas, adrenal glands unremarkable. There is co rtical thinning of both kidneys with parenchymal scarring of the right kidney noted. There is mild ri ght-sided hydronephrosis again seen. There is severe left hydronephrosis with decreased enhancement o f the left kidney as compared to the right, and there is severe left hydroureter identified. This ext ends distally into the pelvis, distal left ureter obscured on axial image 66. This is secondary to a heterogeneous soft tissue mass at the level of the cervix. There is fluid and air seen centrally with in this mass on axial image 72. This measures approximately 5.1 x 6.8 cm in AP and transverse dimensi on, likely stable in size. There is abnormal thickening of the endometrial stripe versus fluid expand ing the endometrial cavity up to 3.4 cm in transverse dimension. There is a mass at the uterine fundu s to the left of midline measuring 2.9 x 2.5 cm in AP transverse dimension. There is adenopathy in th e retroperitoneum identified. The left para-aortic lymph node identified previously is decreased in s ize today measuring 1.6 cm in short axis dimension, previously 2.6 cm in short axis dimension. CONCLU NAOMY: 1. Irregular ill-defined mass at the level of the cervix with either necrosis or abnormal fluid and air distending the endocervical region, and endometrial thickening versus fluid distending the endome trial cavity. This is consistent with the patient's known cervical carcinoma. 2. Severe left hydronephrosis and mild right hydronephrosis and hydroureter identified. There is dec reased enhancement of the left kidney as compared to the right. 3. Left lower lobe pulmonary nodule is stable. 4. Left para-aortic necrotic lymph node is decreased in size today. Electronically signed by: Jay Dailey MD 03/03/2018 5:36 PM EDT
[2018-03-03 18:54] LABS: Bacteria,Urine Occasional /hpf; Bilirubin,Urine Negative (Negative); Clarity,Urine Clear (Clear); Color,Urine Straw (Yellw/Straw); Glucose,Urine (UA) Negative (Negative); Leukocyte Esterase,Urine Trace (Negative); Mucus,Urine Few /lpf (Occasional); Nitrite,Urine Negative (Negative); Specific Gravity,Urine 1.014 (1.002-1.035); Squamous Epithelial Cell,Urine 1 /hpf (0-5)
--- NOTE | 2018-03-03 19:59 | P.HPFP ---
History of Present Illness Primary Care Physician: PROVIDER NON STAFF <George Santoro L - 03/04/18 14:57> PROVIDER NON STAFF <EdgarSusan Sebastián - 03/03/18 19:59> Chief Complaint: abdominal pain, nausea and vomiting <Susan Hernández Sebastián 01:34> History of Present Illness: 62 y/o F with history of cervical cancer, currently on chemotherapy and radiation, hypertension and diabetes, presents with diffuse abdominal pain that started 1 month ago that worsened significantly in the past couple of days. Patient describes the pain as a constant, achy and dull sensation. Patient admits to intermittent nausea and notes that she has vomited 4 times every day for the past few days. Vomiting sometimes occurs after she eats, but is able to tolerate clear liquids without issue. Patient also notes watery diarrhea 4 days, no blood or particularly foul smell noted. She also admits to weight loss but is unable to quantify it at this time. She states that after starting the chemotherapy she has been eating regularly, however, she notes sometimes "food does not taste right ". She also admits to a recent fall yesterday when transferring into a chair she notes that she hit her knee at the time did not hit her head or lose consciousness. She currently denies knee pain. Patient also complains of chronic back pain for which she takes dicyclomine with minimal relief. Patient denies recent fever, headache, dizziness, chest pain, shortness of breath, cough, sore throat, dysuria, constipation, or blood in her stool. Patient denies having similar episodes of abdominal pain in the past. Patient has a history of cervical cancer for which she sees obstetrician gynecologist oncologist, Dr. Marks. Patient underwent surgery a couple of months ago. She is now on chemotherapy, which was started in September 2017. Currently unsure of last chemotherapy treatment. Patient states she has been receiving radiation, every day for the past couple of months, last treatment was this Monday. <UmmRenuka fontaineSusan B 03/04/18 02:11> - Diagnosis (1) Abdominal pain (2) Cervical cancer (3) Hydronephrosis (4) Hypertension (5) Diabetes mellitus (6) Chronic back pain (7) Nutrition, metabolism, and development symptoms (8) DVT prophylaxis <EdgarSusan B 03/04/18 02:11> (1) Partial bowel obstruction (2) Cervical cancer (3) Hydronephrosis (4) Hypertension (5) Diabetes mellitus (6) Chronic back pain (7) Nutrition, metabolism, and development symptoms (8) DVT prophylaxis <George Santoro 03/04/18 14:57> Inpatient Certification: I certify that the inpatient services were ordered in accordance with Medicare regulations governing the order. This includes certification that hospital inpatient services are reasonable and necessary and in the case of services not specified as inpatient-only under 42 CFR 419.22(n), that they are appropriately provided as inpatient services in accordance to with the 2-midnight benchmark under 43 CFR 412.3(e) <George Santoro 03/04/18 14:57> I certify that the inpatient services were ordered in accordance with Medicare regulations governing the order. This includes certification that hospital inpatient services are reasonable and necessary and in the case of services not specified as inpatient-only under 42 CFR 419.22(n), that they are appropriately provided as inpatient services in accordance to with the 2-midnight benchmark under 43 CFR 412.3(e) <EdgarSusan B 03/03/18 19:59> Estimated Total Length of Stay (Days): 3 <EdgarSusan 03/03/18 19:59> Plans for Post Hospital Care: Not yet determined <Susan Hernández 03/03/18 19:59> Review of Systems Constitutional: Reports weight loss, Denies chills, Denies fever(s) <Susan Hernández 03/04/18 01:34> Eyes: Denies change in vision <Susan Hernández 03/04/18 01:34> Ears, Nose, Mouth, and Throat: Denies nasal discharge, Denies sore throat < Susan Hernández 03/04/18 01:34> Comments: no dysphagia <Susan Hernández 03/04/18 01:34> Cardiovascular: Denies chest pain, Denies excessive sweating, Denies fainting, Denies leg swelling, Denies lightheadedness <Susan Hernández 03/04/18 01:34> Respiratory: Denies cough, Denies shortness of breath <Susan Hernández 03/04 01:34> Gastrointestinal: Reports abdominal pain, Reports loose stools, Reports nausea, Reports vomiting, Denies constipation <Susan Hernández 03/04/18 01:34> Musculoskeletal: Reports back pain (Chronic), Denies numbness, Denies tingling <Susan Hernández 03/04/18 01:34> PMFSH - History History Provided By: Patient <Susan Hernández - 03/03/18 19:59> - Medical History Medical History: Medical History (Last Updated 03/04/18 @ 00:57 by Susan Hernández DO, R1) Diabetes (Acute) Cervical cancer (Acute) Asthma Cancer <George Santoro - 03/04/18 14:57> Medical History (Last Updated 03/04/18 @ 00:57 by Susan Hernández DO, R1) Diabetes (Acute) Cervical cancer (Acute) Asthma Cancer <Susan Hernández 03/04/18 01:34> - Surgical History Surgical History: Surgical History (Last Updated 03/03/18 @ 19:44 by Susan Hernández DO, R1) Hx of cataract removal with insertion of prosthetic lens Hx of tonsillectomy <George Santoro - 03/04/18 14:57> Surgical History (Last Updated 03/03/18 @ 19:44 by Susan Hernández DO, R1) Hx of cataract removal with insertion of prosthetic lens Hx of tonsillectomy <Susan Hernández 03/03/18 19:59> - Family History Family History: Family History (Last Updated 03/03/18 @ 19:46 by Susan Hernández DO, R1) Other Family history not known due to adoption <George Santoro - 03/04/18 14:57> Family History (Last Updated 03/03/18 @ 19:46 by Susan Hernández DO, Romana) Other Family history not known due to adoption <Susan Hernández 03/03/18 21:05> - Tobacco History Second Hand Smoke Exposure: No <Susan Hernández 03/03/18 19:59> Tobacco Use In Past 30 Days: No <Susan Hernández 03/03/18 19:59> Smoking Status: Former smoker (up to 2-3 PPD) <Susan Hernández 03/03/18 19: 59> Tobacco Type: Cigarettes <[facility] 03/03/18 19:59> - Alcohol History How Often Do You Have a Drink Containing Alcohol: Never <Susan Hernández 19:59> - Substance Use History Substance History: No History of Abuse <Susan Hernández 03/03/18 19:59> - Travel History Recent Travel in the [facility] Within the Last 8 Weeks: No <Susan Hernández 19:59> Recent Travel Out of the Country Within the Last 8 Weeks: No <[facility] 03/03/18 19:59> - Immunization History Tetanus Immunization: >5 Years <[facility] 03/03/18 19:59> Hx Influenza Vaccine This Season: No <Susan Hernández 03/03/18 19:59> Medications and Allergies Allergies Allergy/AdvReac Type Severity Reaction Status Date / Time No Known Allergies Allergy Verified 03/03/18 15:28 <George Santoro - 03/04/18 14:57> Home Medications Medication Instructions Recorded Confirmed Type amlodipine [Norvasc] 5 mg PO DAILY 03/03/18 03/03/18 History dicyclomine 20 mg PO QID 03/03/18 03/03/18 History ibuprofen 800 mg PO TID 03/03/18 03/03/18 History metoclopramide HCl [Reglan] 10 mg PO TID 03/03/18 03/03/18 History ondansetron HCl [Zofran] 8 mg PO TID PRN 03/03/18 03/03/18 History potassium chloride 20 meq PO BID 03/03/18 03/03/18 History sitagliptin [Januvia] 100 mg PO DAILY 03/03/18 03/03/18 History <George Santoro 03/04/18 14:57> Active Medications: Active Medications Acetaminophen (Tylenol) 650 mg PO Q4H PRN PRN Reason: Pain 1-3 or fever> 100.4F Amlodipine Besylate (Norvasc) 5 mg PO DAILY [facility] Last Admin: 03/04/18 09:30 Dose: 5 mg Dextrose (D50w Vial) 50 ml IV.PUSH UNSCH PRN PRN Reason: PER HYPOGLYCEMIA PROTOCOL Glucagon (Glucagon Inj) 1 mg OTHER PRN PRN PRN Reason: for Hypoglycemia Protocol Dextrose/Sodium Chloride (D5w/Normal Saline Inj) 1,000 mls @ 110 mls/hr IV.CONT .Q9H6M [facility] Last Admin: 03/04/18 08:16 Dose: 110 mls/hr Insulin Aspart (Novolog Insulin Correctional Sugar Inj) 0 unit SQ ACHS [facility]; Protocol Last Admin: 03/04/18 08:17 Dose: Not Given Morphine Sulfate (Morphine Inj) 4 mg IV.PUSH Q3H PRN PRN Reason: PAIN 6-10;IF UNABLE TO TAKE PO Last Admin: 03/04/18 11:54 Dose: 4 mg Morphine Sulfate (Morphine Inj) 2 mg IV.PUSH Q3H PRN PRN Reason: PAIN 3-5; IF UABLE TO TAKE PO Naloxone HCl (Narcan Inj) 0.4 mg IV.PUSH UNSCH PRN PRN Reason: SEE LABEL COMMENTS Ondansetron HCl (Zofran Inj) 4 mg IV.PUSH Q6H PRN PRN Reason: NAUSEA OR VOMITING Potassium Chloride (Kcl) 20 meq PO BID [facility] Last Admin: 03/04/18 08:17 Dose: Not Given Sodium Chloride (Ns Flush) 2 ml IV.FLUSH BID [facility] Last Admin: 03/04/18 08:17 Dose: 2 ml Sodium Chloride (Ns Flush) 2 ml IV.FLUSH PRN PRN PRN Reason: FLUSH AFTER USING IV ACCESS <George Santoro - 03/04/18 14:57> Active Medications Sodium Chloride (Ns Flush) 2 ml IV.FLUSH PRN PRN PRN Reason: FLUSH AFTER USING IV ACCESS Last Admin: 03/03/18 15:46 Dose: 2 ml Sodium Chloride (Ns Flush) 2 ml IV.FLUSH BID [facility] Sodium Chloride (Ns Flush) 2 ml IV.FLUSH BID [facility] <Susan Hernández - 03/03/18 19:59> Exam Vital signs: Vital Signs 03/03/18 15:25 03/03/18 16:10 03/03/18 16:35 Temperature 97.8 F 98 F Pulse Rate 93 H 84 Respiratory Rate 18 17 16 Blood Pressure 123/78 130/76 Pulse Oximetry 100 99 03/03/18 18:04 03/03/18 21:40 03/03/18 22:15 Temperature 97.9 F Pulse Rate 86 Respiratory Rate 16 18 Blood Pressure 125/66 Pulse Oximetry 100 98 03/03/18 23:25 03/04/18 01:14 03/04/18 02:12 Temperature 98.0 F Pulse Rate 87 83 Respiratory Rate 18 18 Blood Pressure 110/67 Pulse Oximetry 96 03/04/18 03:25 03/04/18 08:00 03/04/18 10:30 Temperature 98.0 F 98.0 F Pulse Rate 82 83 Respiratory Rate 18 16 Blood Pressure 113/69 119/67 Pulse Oximetry 97 98 98 03/04/18 12:00 Temperature 97.7 F Pulse Rate 75 Respiratory Rate 16 Blood Pressure 116/69 Pulse Oximetry 99 Intake & Output 03/03/18 03/04/18 03/04/18 18:59 06:59 18:59 Intake Total 1000 / 1000 50 / 50 1000 / 1000 Output Total 500 / 500 Balance 500 / 500 50 / 50 1000 / 1000 Weight 71.214 kg 70.7 kg Intake: IV 1000 / 1000 50 / 50 1000 / 1000 D5W/Normal Saline Inj 1,000 ML 1000 / 1000 @ 110 mls/hr IV.CONT .Q9H6M [facility] Rx#:[id number] NS Inj 1,000 ML @ 110 mls/hr IV 50 / 50 .CONT .Q9H6M [facility] Rx#:[id number] NS Inj 1,000 ML @ Wide Open IV. 1000 / 1000 SIG BOLUS ONE Rx#:[id number] Oral 0 / 0 Output: Urine 500 / 500 Other: # Voids 1 2 Date of Last Bowel Movement 03/03/18 # Bowel Movements 0 Weight On Admission 71.21 kg <George Santoro L - 03/04/18 14:57> Vital Signs 03/03/18 14:28 03/03/18 15:25 03/03/18 16:10 Temperature 98.4 F 97.8 F Pulse Rate 93 H Respiratory Rate 16 18 17 Blood Pressure 95/63 L 123/78 Pulse Oximetry 99 100 03/03/18 16:35 03/03/18 18:04 Temperature 98 F 97.9 F Pulse Rate 84 86 Respiratory Rate 16 16 Blood Pressure 130/76 125/66 Pulse Oximetry 99 100 Intake & Output 03/03/18 03/03/18 03/04/18 06:59 18:59 06:59 Intake Total 1000 / 1000 Output Total 500 / 500 Balance 500 / 500 Weight 71.214 kg Intake: IV 1000 / 1000 NS Inj 1,000 ML @ Wide Open IV. 1000 / 1000 SIG BOLUS ONE Rx#:[id number] Output: Urine 500 / 500 Other: # Voids 1 <Susan Hernández Sebastián - 03/03/18 19:59> Narrative: GENERAL: 62-year-old female, well-developed, in no acute distress. HEENT: NCAT, EOMI, no scleral icterus, no conjunctival injection. MMM. Airway patent. NECK: Supple, no meningeal signs. No carotid bruits. No thyromegaly, thyroid nodules, thyroid tenderness. CV: RRR, S1 S2. No murmurs. CHEST/PULM: CTAB, no crackles, no wheezes. Chemotherapy port noted in right chest wall. No tenderness, erythema, induration or drainage surrounding the port. ABD/GI: Bowel sounds in all 4 quadrants, however, hypoactive in left lower quadrant. Soft, mildly distended. Tender to moderate palpation. EXT: 2+ posterior tibialis pulses. No significant edema. NEURO: Awake, alert. Normal muscle tone. 5/5 muscle strength in all extremities. Grossly nonfocal. SKIN: No rashes, no jaundice. <Susan Hernández Sebastián - 03/04/18 01:45> Results - Labs Result diagrams: 03/04/18 04:50 03/04/18 04:50 <George Santoro - 03/04/18 14:57> Abnormal lab results 03/03/18 03/03/18 03/03/18 Range/Units 15:20 15:20 18:25 RBC 2.70 L (4.00-5.30) mil/mm3 Hgb 8.3 L (11.6-15.3) gm/dL Hct 24.2 L (35.0-46.0) % RDW (11.6-17.2) % MPV 6.5 L (7.0-11.0) fL Neut % (Auto) 85.6 H (16.0-70.0) % Lymph % (Auto) 2.2 L (9.0-44.0) % Park % (Auto) 11.5 H (0.0-8.0) % Lymph # (Auto) 0.1 L (1.0-4.8) th/mm3 Chloride (98-107) meq/L Carbon Dioxide 20.9 L (21.0-32.0) meq/L Creatinine 1.20 H (0.50-1.00) mg/dL Estimated GFR 55 L (>89) mL/min POC Glucose (68-110) mg/dl Random Glucose 121 H (74-106) mg/dL Calcium (8.5-10.1) mg/dL AST 10 L (15-37) U/L Alkaline Phosphatase 121 H (45-117) U/L Total Creatine Kinase (26-192) U/L Troponin I (0.02-0.05) ng/mL Albumin 2.6 L (3.4-5.0) g/dL Lipase 35 L (73-393) U/L Ur Leukocyte Esterase Trace H (Negative) Urine WBC 8 H (0-5) /hpf Urine Bacteria Occasional H (None) /hpf Urine Mucus Few H (Occasional) /lpf MTS Gel Crossmatch 03/03/18 03/04/18 03/04/18 Range/Units 22:40 04:50 04:50 RBC 2.45 L (4.00-5.30) mil/mm3 Hgb 7.6 L (11.6-15.3) gm/dL Hct 22.2 L (35.0-46.0) % RDW 17.6 H (11.6-17.2) % MPV 6.2 L (7.0-11.0) fL Neut % (Auto) 84.5 H (16.0-70.0) % Lymph % (Auto) 2.5 L (9.0-44.0) % Park % (Auto) 12.1 H (0.0-8.0) % Lymph # (Auto) 0.1 L (1.0-4.8) th/mm3 Chloride (98-107) meq/L Carbon Dioxide (21.0-32.0) meq/L Creatinine (0.50-1.00) mg/dL Estimated GFR (>89) mL/min POC Glucose (68-110) mg/dl Random Glucose (74-106) mg/dL Calcium (8.5-10.1) mg/dL AST (15-37) U/L Alkaline Phosphatase (45-117) U/L Total Creatine Kinase 22 L 24 L (26-192) U/L Troponin I Less than 0.02 L Less than 0.02 L (0.02-0.05) ng/mL Albumin (3.4-5.0) g/dL Lipase (73-393) U/L Ur Leukocyte Esterase (Negative) Urine WBC (0-5) /hpf Urine Bacteria (None) /hpf Urine Mucus (Occasional) /lpf MTS Gel Crossmatch 03/04/18 03/04/18 03/04/18 Range/Units 04:50 08:16 10:37 RBC (4.00-5.30) mil/mm3 Hgb (11.6-15.3) gm/dL Hct (35.0-46.0) % RDW (11.6-17.2) % MPV (7.0-11.0) fL Neut % (Auto) (16.0-70.0) % Lymph % (Auto) (9.0-44.0) % Park % (Auto) (0.0-8.0) % Lymph # (Auto) (1.0-4.8) th/mm3 Chloride 108 H (98-107) meq/L Carbon Dioxide (21.0-32.0) meq/L Creatinine 1.12 H (0.50-1.00) mg/dL Estimated GFR 60 L (>89) mL/min POC Glucose 123 H (68-110) mg/dl Random Glucose 117 H (74-106) mg/dL Calcium 8.2 L (8.5-10.1) mg/dL AST 9 L (15-37) U/L Alkaline Phosphatase (45-117) U/L Total Creatine Kinase (26-192) U/L Troponin I (0.02-0.05) ng/mL Albumin 2.3 L (3.4-5.0) g/dL Lipase (73-393) U/L Ur Leukocyte Esterase (Negative) Urine WBC (0-5) /hpf Urine Bacteria (None) /hpf Urine Mucus (Occasional) /lpf MTS Gel Crossmatch See Detail Short CBC 03/03/18 03/04/18 Range/Units 15:20 04:50 WBC 4.8 4.1 (4.0-11.0) th/mm3 Hgb 8.3 L 7.6 L (11.6-15.3) gm/dL Hct 24.2 L 22.2 L (35.0-46.0) % Plt Count 224 204 (150-450) th/mm3 BMP 03/03/18 03/04/18 15:20 04:50 Sodium 136 138 Potassium 4.5 4.6 Chloride 106 108 H Carbon Dioxide 20.9 L 21.8 BUN 16 12 Creatinine 1.20 H 1.12 H Calcium 8.7 8.2 L Cardiac Enzymes 03/03/18 03/04/18 Range/Units 22:40 04:50 Total Creatine Kinase 22 L 24 L (26-192) U/L Troponin I Less than 0.02 L Less than 0.02 L (0.02-0.05) ng/mL Liver Function 03/03/18 03/04/18 Range/Units 15:20 04:50 Total Bilirubin 0.5 0.4 (0.2-1.0) mg/dL AST 10 L 9 L (15-37) U/L ALT 16 13 (10-53) U/L Alkaline Phosphatase 121 H 105 (45-117) U/L Albumin 2.6 L 2.3 L (3.4-5.0) g/dL Urine 03/03/18 Range/Units 18:25 Urine Color Straw (Yellw/Straw) Urine Clarity Clear (Clear) Urine pH 5.0 (5.0-8.5) Ur Specific [place] 1.014 (1.002-1.035) Urine Protein Negative (Neg-Trace) mg/dL Urine Glucose (UA) Negative (Negative) mg/dL <George Santoro L - 03/04/18 14:57> Abnormal lab results 03/03/18 03/03/18 03/03/18 Range/Units 15:20 15:20 18:25 RBC 2.70 L (4.00-5.30) mil/mm3 Hgb 8.3 L (11.6-15.3) gm/dL Hct 24.2 L (35.0-46.0) % MPV 6.5 L (7.0-11.0) fL Neut % (Auto) 85.6 H (16.0-70.0) % Lymph % (Auto) 2.2 L (9.0-44.0) % Park % (Auto) 11.5 H (0.0-8.0) % Lymph # (Auto) 0.1 L (1.0-4.8) th/mm3 Carbon Dioxide 20.9 L (21.0-32.0) meq/L Creatinine 1.20 H (0.50-1.00) mg/dL Estimated GFR 55 L (>89) mL/min Random Glucose 121 H (74-106) mg/dL AST 10 L (15-37) U/L Alkaline Phosphatase 121 H (45-117) U/L Albumin 2.6 L (3.4-5.0) g/dL Lipase 35 L (73-393) U/L Ur Leukocyte Esterase Trace H (Negative) Urine WBC 8 H (0-5) /hpf Urine Bacteria Occasional H (None) /hpf Urine Mucus Few H (Occasional) /lpf Short CBC 03/03/18 Range/Units 15:20 WBC 4.8 (4.0-11.0) th/mm3 Hgb 8.3 L (11.6-15.3) gm/dL Hct 24.2 L (35.0-46.0) % Plt Count 224 (150-450) th/mm3 BMP 03/03/18 15:20 Sodium 136 Potassium 4.5 Chloride 106 Carbon Dioxide 20.9 L BUN 16 Creatinine 1.20 H Calcium 8.7 Liver Function 03/03/18 Range/Units 15:20 Total Bilirubin 0.5 (0.2-1.0) mg/dL AST 10 L (15-37) U/L ALT 16 (10-53) U/L Alkaline Phosphatase 121 H (45-117) U/L Albumin 2.6 L (3.4-5.0) g/dL Urine 03/03/18 Range/Units 18:25 Urine Color Straw (Yellw/Straw) Urine Clarity Clear (Clear) Urine pH 5.0 (5.0-8.5) Ur Specific [place] 1.014 (1.002-1.035) Urine Protein Negative (Neg-Trace) mg/dL Urine Glucose (UA) Negative (Negative) mg/dL <Susan Hernández - 03/03/18 19:59> - Imaging Impressions Chest X-Ray 03/03/18 00:00 CONCLUSION: No acute cardiopulmonary disease. Abdomen/Pelvis CT 03/03/18 16:54 There is a noncalcified nodule in the left lower lobe again seen on axial image 1. Review of bone windows demonstrate levoscoliosis and degenerative changes of the lumbar spine. There are no pleural or pericardial effusions. Liver, gallbladder, spleen, pancreas, adrenal glands unremarkable. There is cortical thinning of both kidneys with parenchymal scarring of the right kidney noted. There is mild right-sided hydronephrosis again seen. There is severe left hydronephrosis with decreased enhancement of the left kidney as compared to the right, and there is severe left hydroureter identified. This extends distally into the pelvis, distal left ureter obscured on axial image 66. This is secondary to a heterogeneous soft tissue mass at the level of the cervix. There is fluid and air seen centrally within this mass on axial image 72. This measures approximately 5.1 x 6.8 cm in AP and transverse dimension, likely stable in size. There is abnormal thickening of the endometrial stripe versus fluid expanding the endometrial cavity up to 3.4 cm in transverse dimension. There is a mass at the uterine fundus to the left of midline measuring 2.9 x 2.5 cm in AP transverse dimension. There is adenopathy in the retroperitoneum identified. The left para-aortic lymph node identified previously is decreased in size today measuring 1.6 cm in short axis dimension, previously 2.6 cm in short axis dimension. CONCLUSION: 1. Irregular ill-defined mass at the level of the cervix with either necrosis or abnormal fluid and air distending the endocervical region, and endometrial thickening versus fluid distending the endometrial cavity. This is consistent with the patient's known cervical carcinoma. 2. Severe left hydronephrosis and mild right hydronephrosis and hydroureter identified. There is decreased enhancement of the left kidney as compared to the right. 3. Left lower lobe pulmonary nodule is stable. 4. Left para-aortic necrotic lymph node is decreased in size today. Abdomen X-Ray 03/04/18 02:30 CONCLUSION: The nasogastric tube is coiled in the upper stomach. <George Santoro - 03/04/18 14:57> Impressions Abdomen/Pelvis CT 03/03/18 16:54 There is a noncalcified nodule in the left lower lobe again seen on axial image 1. Review of bone windows demonstrate levoscoliosis and degenerative changes of the lumbar spine. There are no pleural or pericardial effusions. Liver, gallbladder, spleen, pancreas, adrenal glands unremarkable. There is cortical thinning of both kidneys with parenchymal scarring of the right kidney noted. There is mild right-sided hydronephrosis again seen. There is severe left hydronephrosis with decreased enhancement of the left kidney as compared to the right, and there is severe left hydroureter identified. This extends distally into the pelvis, distal left ureter obscured on axial image 66. This is secondary to a heterogeneous soft tissue mass at the level of the cervix. There is fluid and air seen centrally within this mass on axial image 72. This measures approximately 5.1 x 6.8 cm in AP and transverse dimension, likely stable in size. There is abnormal thickening of the endometrial stripe versus fluid expanding the endometrial cavity up to 3.4 cm in transverse dimension. There is a mass at the uterine fundus to the left of midline measuring 2.9 x 2.5 cm in AP transverse dimension. There is adenopathy in the retroperitoneum identified. The left para-aortic lymph node identified previously is decreased in size today measuring 1.6 cm in short axis dimension, previously 2.6 cm in short axis dimension. CONCLUSION: 1. Irregular ill-defined mass at the level of the cervix with either necrosis or abnormal fluid and air distending the endocervical region, and endometrial thickening versus fluid distending the endometrial cavity. This is consistent with the patient's known cervical carcinoma. 2. Severe left hydronephrosis and mild right hydronephrosis and hydroureter identified. There is decreased enhancement of the left kidney as compared to the right. 3. Left lower lobe pulmonary nodule is stable. 4. Left para-aortic necrotic lymph node is decreased in size today. <Susan Hernández - 03/03/18 19:59> Caprini VTE Risk Assessment Caprini VTE Risk Assessment: Moderate/High Risk (score >= 2) <Susan Hernández - 03/04/18 02:13> Caprini Risk Assessment Model: Point Value = 1 Point Value = 2 Point Value = 3 Point Value = 5 Age 41-60 Minor surgery BMI > 25 kg/m2 Swollen legs Varicose veins or History of unexplained or recurrent spontaneous Oral contraceptives or hormone replacement Sepsis (< 1 month) Serious lung disease, including pneumonia (< 1 month) Abnormal pulmonary function Acute myocardial infarction Congestive heart failure (< 1 month) History of inflammatory bowel disease Medical patient at bed rest Age 61-74 Arthroscopic surgery Major open surgery (> 45 min) Laparoscopic surgery (> 45 min) Malignancy Confined to bed (> 72 hours) Immobilizing plaster cast Central venous access Age >= 75 History of VTE Family history of VTE Factor V Leiden Prothrombin [id number] Lupus anticoagulant Anticardiolipin antibodies Elevated serum homocysteine Heparin-induced thrombocytopenia Other congenital or acquired thrombophilia Stroke (< 1 month) Elective arthroplasty Hip, pelvis, or leg fracture Acute spinal cord injury (< 1 month) <George Santoro - 03/04/18 14:57> Point Value = 1 Point Value = 2 Point Value = 3 Point Value = 5 Age 41-60 Minor surgery BMI > 25 kg/m2 Swollen legs Varicose veins or History of unexplained or recurrent spontaneous Oral contraceptives or hormone replacement Sepsis (< 1 month) Serious lung disease, including pneumonia (< 1 month) Abnormal pulmonary function Acute myocardial infarction Congestive heart failure (< 1 month) History of inflammatory bowel disease Medical patient at bed rest Age 61-74 Arthroscopic surgery Major open surgery (> 45 min) Laparoscopic surgery (> 45 min) Malignancy Confined to bed (> 72 hours) Immobilizing plaster cast Central venous access Age >= 75 History of VTE Family history of VTE Factor V Leiden Prothrombin [id number] Lupus anticoagulant Anticardiolipin antibodies Elevated serum homocysteine Heparin-induced thrombocytopenia Other congenital or acquired thrombophilia Stroke (< 1 month) Elective arthroplasty Hip, pelvis, or leg fracture Acute spinal cord injury (< 1 month) <Susan Hernández B - 03/04/18 02:13> Prophylaxis Regimen: Total Risk Factor Score Risk Level Prophylaxis Regimen 0-1 Low Early ambulation 2 Moderate Order ONE of the following: *Sequential Compression Device (SCD) *Heparin 5000 units SQ BID 3-4 Higher Order ONE of the following medications: *Heparin 5000 units SQ TID *Enoxaparin/Lovenox 40 mg SQ daily (WT < 150 kg, CrCl > 30 mL/min) *Enoxaparin/Lovenox 30 mg SQ daily (WT < 150 kg, CrCl > 10-29 mL/min) *Enoxaparin/Lovenox 30 mg SQ BID (WT < 150 kg, CrCl > 30 mL/min) AND/OR *Sequential Compression Device (SCD) 5 or more Highest Order ONE of the following medications: *Heparin 5000 units SQ TID (Preferred with Epidurals) *Enoxaparin/Lovenox 40 mg SQ daily (WT < 150 kg, CrCl > 30 mL/min) *Enoxaparin/Lovenox 30 mg SQ daily (WT < 150 kg, CrCl > 10-29 mL/min) *Enoxaparin/Lovenox 30 mg SQ BID (WT < 150 kg, CrCl > 30 mL/min) AND *Sequential Compression Device (SCD) <George Santoro - 03/04/18 14:57> Total Risk Factor Score Risk Level Prophylaxis Regimen 0-1 Low Early ambulation 2 Moderate Order ONE of the following: *Sequential Compression Device (SCD) *Heparin 5000 units SQ BID 3-4 Higher Order ONE of the following medications: *Heparin 5000 units SQ TID *Enoxaparin/Lovenox 40 mg SQ daily (WT < 150 kg, CrCl > 30 mL/min) *Enoxaparin/Lovenox 30 mg SQ daily (WT < 150 kg, CrCl > 10-29 mL/min) *Enoxaparin/Lovenox 30 mg SQ BID (WT < 150 kg, CrCl > 30 mL/min) AND/OR *Sequential Compression Device (SCD) 5 or more Highest Order ONE of the following medications: *Heparin 5000 units SQ TID (Preferred with Epidurals) *Enoxaparin/Lovenox 40 mg SQ daily (WT < 150 kg, CrCl > 30 mL/min) *Enoxaparin/Lovenox 30 mg SQ daily (WT < 150 kg, CrCl > 10-29 mL/min) *Enoxaparin/Lovenox 30 mg SQ BID (WT < 150 kg, CrCl > 30 mL/min) AND *Sequential Compression Device (SCD) <Susan Hernández - 03/04/18 02:13> Assessment and Plan - Assessment (1) Abdominal pain Code(s): R10.9 - Unspecified abdominal pain Status: Acute Plan: Patient presenting with abdominal pain for the past month, recently worsening, along with nausea, vomiting, and diarrhea for the past 4 days. Patient was hypertensive on arrival, which was corrected following 1 L bolus of NS IVF. Consider large bowel obstruction secondary to mass-effect and urinary obstruction with hydronephrosis versus chemotherapy side effect versus gastroenteritis. Urology and Dr. Marks, patient's obstetrician gynecologist oncologist, consulted. Imaging: -CT abdomen pelvis showed: Irregular ill-defined mass at the level of the cervix with either necrosis or abnormal fluid and air distending the endocervical region, and endometrial thickening versus fluid distending the endometrial cavity. This is consistent with the patient's known cervical carcinoma. Labs: -CBC ordered in ED showed: White blood cell count of 4.8, WNL. Anemia with hemoglobin of 8.3, will consider transfusion if continues to drop. -CMP ordered in ED showed: BUN/Cr 16/1.2, with estimated GFR of 55. Random glucose of 121. -Troponin I and CK-MB -No elevation of lipase level -UA showed trace leukocyte esterase and 8 white blood cells, no urinary culture indicated Medications: -Hold home dicyclomine -Tylenol 650 mg p.o. every 4 hours as needed pain scale 1-2 or fever > 100.4. F -Morphine 2 mg IV every 3 as needed for pain scale 3-5 -Morphine 4 mg IV every 3 as needed for pain scale 6-10 -Zofran 4 mg IV every 6 as needed for nausea -Nursing staff to call if patient requires breakthrough pain medication, or concern for acute abdomen. Orders: -NG tube placement ordered -Keep NPO for now -D5W NS at 110 mls/hr (2) Cervical cancer Code(s): C53.9 - Malignant neoplasm of cervix uteri, unspecified Status: Chronic Plan: Patient has a history of cervical cancer for which she sees obstetrician gynecologist oncologist, Dr. Ramirez. Patient underwent surgery a couple of months ago. She is now on chemotherapy and radiation therapy. Patient complaining of worsening abdominal pain for the past month with recent increase in nausea, vomiting, and diarrhea. Imaging: -CT abd/pelvis showed: Irregular ill-defined mass left of midline measuring 2.9 x 2.5 cm in AP transverse dimension at the level of the cervix with either necrosis or abnormal fluid and air distending the endocervical region, and endometrial thickening versus fluid distending the endometrial cavity. This is consistent with the patient's known cervical carcinoma. Labs: CBC showed: WBC, WNL. CMP showed: Calcium level, WNL. Consult: -Dr. Marks, patient obstetrician gynecologist oncologist, consulted (3) Hydronephrosis Code(s): N13.30 - Unspecified hydronephrosis Status: Chronic Plan: Imaging: CT Abd/pelvis showed: Severe left hydronephrosis and mild right hydronephrosis and hydroureter identified. There is decreased enhancement of the left kidney as compared to the right. Labs: -CMP showed: BUN/Cr 16/1.2, with estimated GFR of 55 Consult: -Urology consulted (4) Hypertension Code(s): I10 - Essential (primary) hypertension Status: Acute Plan: Patient with history of hypertension -Continue home amlodipine 5 mg p.o. daily (5) Diabetes mellitus Code(s): E11.9 - Type 2 diabetes mellitus without complications Status: Chronic Plan: Patient with history of diabetes mellitus, for which she takes Januvia. -Hold home Januvia -Placed on sliding scale with frequent accuchecks while in hospital -Hypoglycemia protocol -D5W NS at 110 mls/hr maintenance fluids,while patient is NPO (6) Chronic back pain Code(s): M54.9 - Dorsalgia, unspecified; G89.29 - Other chronic pain Status: Chronic Plan: Patient has history of chronic back pain, for which she takes ibuprofen 800 mg 3 times daily. -Hold home ibuprofen (7) Nutrition, metabolism, and development symptoms Code(s): R63.8 - Other symptoms and signs concerning food and fluid intake Status: Acute Plan: Fluids: D5W NS at 110 mls/hr Electrolytes: No significant electrolyte abnormalities noted at this time. We will continue to monitor and replete as needed. Diet: NPO for now, due to nausea and vomiting. (8) DVT prophylaxis Status: Acute Plan: DVT prophylaxis: Bilateral SCDs <Susan Hernández - 03/04/18 02:11> (1) Partial bowel obstruction Code(s): K56.600 - Partial intestinal obstruction, unspecified as to cause Status: Acute (2) Cervical cancer Code(s): C53.9 - Malignant neoplasm of cervix uteri, unspecified Status: Chronic (3) Hydronephrosis Code(s): N13.30 - Unspecified hydronephrosis Status: Chronic (4) Hypertension Code(s): I10 - Essential (primary) hypertension Status: Acute (5) Diabetes mellitus Code(s): E11.9 - Type 2 diabetes mellitus without complications Status: Chronic (6) Chronic back pain Code(s): M54.9 - Dorsalgia, unspecified; G89.29 - Other chronic pain Status: Chronic (7) Nutrition, metabolism, and development symptoms Code(s): R63.8 - Other symptoms and signs concerning food and fluid intake Status: Acute (8) DVT prophylaxis Status: Acute <George Santoro - 03/04/18 14:57> - Attending Attestation The exam, history, and the medical decision-making described in the above note were completed with the assistance of the resident physician. I reviewed and agree with the findings presented. I did not see the patient personally on admission day, but did see her the next day on 03/04 and documented my findings in the chart. <George Santoro - 03/04/18 14:57>
[2018-03-03] MEDS ORDERED: Sod Chloride 0.9% Inj 1,000 ML IV.CONT SCH (20:15)
--- NOTE | 2018-03-03 20:32 | XR ---
EXAM DATE: 03/03/2018 8:25 PM EDT AGE/SEX: 62 years / Female INDICATIONS: Chest pain. CLINICAL DATA: This is the patient's initial encounter. Patient reports that signs and symptoms have been present for 1 day and indicates a pain score of 5/10. MEDICAL/SURGICAL HISTORY: . Carcinoma, cervical. Mets. . Infusaport. COMPARISON: . FINDINGS: The lungs are clear without infiltrate, nodule, or mass. There is no appreciable pleural effusion for technique. Heart and mediastinum are unremarkable. Right IJ [id number] is present wi th tip overlapping the expected region of the SVC. CONCLUSION: No acute cardiopulmonary disease. Electronically signed by: Wai Canales MD 03/03/2018 8:30 PM EDT
[2018-03-03] MEDS ORDERED: Naloxone Inj 0.4 MG/ML Vial IV.PUSH PRN (20:45)
[2018-03-03] MEDS ORDERED: Dextrose 50% in Water 50 ML Vial IV.PUSH PRN (20:57)
[2018-03-03] MEDS ORDERED: Potassium Chloride 20 MEQ Pwd Pkt PO SCH (21:00)
[2018-03-03] MEDS: Morphine Inj 4 MG/ML Vial IV.PUSH PRN (21:54)
[2018-03-03] MEDS: Insulin NovoLOG Aspart Correctional Sugar Inj SQ SCH (21:54)
[2018-03-03] MEDS: Dextrose 5%/NaCl 0.9% Inj 1,000 ML IV.CONT SCH (22:13)
[2018-03-03 23:37] LABS: Creatine Kinase 22 U/L (26-192)
[2018-03-04] MEDS: Morphine Inj 4 MG/ML Vial IV.PUSH PRN ×4 (01:31→18:51)
--- NOTE | 2018-03-04 03:01 | XR ---
EXAM DATE: 03/04/2018 2:50 AM EDT AGE/SEX: 62 years / Female INDICATIONS: NG tube placement. CLINICAL DATA: This is the patient's subsequent encounter. Patient reports that signs and symptoms h ave been present for 2 days and indicates a pain score of 0/10. MEDICAL/SURGICAL HISTORY: . Asthma. Diabetes. Carcinoma, cervical. . Infusaport COMPARISON: [facility] [place], CT ABDOMEN & PELVIS W CONTRAST, 03/03/2018. . FINDINGS: There is a nasogastric tube coiled in the upper stomach. Visualized bowel gas pattern is nonobstructi ve. No evidence of free air. CONCLUSION: The nasogastric tube is coiled in the upper stomach. Electronically signed by: David Hanna MD 03/04/2018 3:00 AM EDT
[2018-03-04 05:32] LABS: Baso % (Auto) 0.3 % (0.0-2.0); Eos % (Auto) 0.6 % (0.0-4.0); Hematocrit 22.2 % (35.0-46.0); Hemoglobin 7.6 gm/dL (11.6-15.3); Lymph # (Auto) 0.1 th/mm3 (1.0-4.8); Lymph % (Auto) 2.5 % (9.0-44.0); Mean Corpuscular HGB Conc 34.2 % (32.0-36.0); Mean Corpuscular Hemoglobin 30.9 pg (27.0-34.0); Mean Corpuscular Volume 90.4 fL (80.0-100.0); Mean Platelet Volume 6.2 fL (7.0-11.0); Mono # (Auto) 0.5 th/mm3 (0.0-0.9); Mono % (Auto) 12.1 % (0.0-8.0); Neut # (Auto) 3.4 th/mm3 (1.8-7.7); Neut % (Auto) 84.5 % (16.0-70.0); Platelet Count 204 th/mm3 (150-450); Red Blood Count 2.45 mil/mm3 (4.00-5.30); Red Cell Distribution Width 17.6 % (11.6-17.2); White Blood Count 4.1 th/mm3 (4.0-11.0)
[2018-03-04 05:34] LABS: Alanine Aminotransferase 13 U/L (10-53); Albumin 2.3 g/dL (3.4-5.0); Anion Gap 8 meq/L (5-15); Aspartate Aminotransferase 9 U/L (15-37); Blood Urea Nitrogen 12 mg/dL (7-18); Calcium 8.2 mg/dL (8.5-10.1); Carbon Dioxide 21.8 meq/L (21.0-32.0); Chloride 108 meq/L (98-107); Glomerular Filtration Rate 60 mL/min (>89); Glucose,Random 117 mg/dL (74-106); Potassium 4.6 meq/L (3.5-5.1); Sodium 138 meq/L (136-145)
[2018-03-04 05:36] LABS: Alkaline Phosphatase 105 U/L (45-117); Total Protein 6.9 g/dL (6.4-8.2)
[2018-03-04 05:47] LABS: Creatine Kinase 24 U/L (26-192)
[2018-03-04] MEDS: Dextrose 5%/NaCl 0.9% Inj 1,000 ML IV.CONT SCH ×3 (06:13→18:58)
[2018-03-04] MEDS: Potassium Chloride 10 MEQ ER Capsule PO SCH ×2 (08:17→21:42)
[2018-03-04] MEDS: Insulin NovoLOG Aspart Correctional Sugar Inj SQ SCH ×4 (08:17→21:42)
--- NOTE | 2018-03-04 08:31 | P.CONURO ---
History of Present Illness Service: Consult date: 03/04/18 Requesting Physician: Susan Hernández Reason for Consult: Chronic bilateral hydronephrosis Primary Care Provider: PROVIDER NON STAFF Family Provider: No Primary Care Physician Chief Complaint: abdominal pain, nausea and vomiting History of Present Illness: 62-year-old female with history cervical cancer was under the care of Dr. Marks and recently admitted for generalized abdominal pain. During the course of her present hospitalization a CT scan of the abdomen and pelvis was performed that demonstrated bilateral hydronephrosis mild on the right and severe on the left with bilateral renal cortical thinning consistent with chronic obstruction. Also noted was a pelvic mass more than left side consistent with the patient's known history of cervical cancer along with bilateral retroperitoneal lymphadenopathy. At the time of consultation, the patient primarily complained of more anterior abdominal pain however she did admit to chronic bilateral back pain. Patient denied hematuria or dysuria. Serum creatinine level was 1.1 Review of Systems All other systems reviewed negative except as stated in HPI PMFSH - History History Provided By: Patient - Medical History Medical History: Medical History (Last Updated 03/04/18 @ 00:57 by Susan Hernández DO, R1) Diabetes (Acute) Cervical cancer (Acute) Asthma Cancer - Surgical History Surgical History: Surgical History (Last Updated 03/03/18 @ 19:44 by Susan Hernández DO, R1) Hx of cataract removal with insertion of prosthetic lens Hx of tonsillectomy - Family History Family History: Family History (Last Updated 03/03/18 @ 19:46 by Susan Hernández DO, R1) Other Family history not known due to adoption - Tobacco History Second Hand Smoke Exposure: No Tobacco Use In Past 30 Days: No Smoking Status: Former smoker (up to 2-3 PPD) Tobacco Type: Cigarettes - Alcohol History How Often Do You Have a Drink Containing Alcohol: Never - Substance Use History Substance History: No History of Abuse - Travel History Recent Travel in the [place] Within the Last 8 Weeks: No Recent Travel Out of the Country Within the Last 8 Weeks: No - Immunization History Tetanus Immunization: >5 Years Hx Influenza Vaccine This Season: No Medications and Allergies Active Medications: Active Medications Acetaminophen (Tylenol) 650 mg PO Q4H PRN PRN Reason: Pain 1-3 or fever> 100.4F Amlodipine Besylate (Norvasc) 5 mg PO DAILY SAMANTHA Dextrose (D50w Vial) 50 ml IV.PUSH UNSCH PRN PRN Reason: PER HYPOGLYCEMIA PROTOCOL Glucagon (Glucagon Inj) 1 mg OTHER PRN PRN PRN Reason: for Hypoglycemia Protocol Dextrose/Sodium Chloride (D5w/Normal Saline Inj) 1,000 mls @ 110 mls/hr IV.CONT .Q9H6M [facility] Last Admin: 03/04/18 08:16 Dose: 110 mls/hr Insulin Aspart (Novolog Insulin Correctional Sugar Inj) 0 unit SQ ACHS [facility]; Protocol Last Admin: 03/04/18 08:17 Dose: Not Given Morphine Sulfate (Morphine Inj) 4 mg IV.PUSH Q3H PRN PRN Reason: PAIN 6-10;IF UNABLE TO TAKE PO Last Admin: 03/04/18 08:08 Dose: 4 mg Morphine Sulfate (Morphine Inj) 2 mg IV.PUSH Q3H PRN PRN Reason: PAIN 3-5; IF UABLE TO TAKE PO Naloxone HCl (Narcan Inj) 0.4 mg IV.PUSH UNSCH PRN PRN Reason: SEE LABEL COMMENTS Ondansetron HCl (Zofran Inj) 4 mg IV.PUSH Q6H PRN PRN Reason: NAUSEA OR VOMITING Potassium Chloride (Kcl) 20 meq PO BID [facility] Last Admin: 03/04/18 08:17 Dose: Not Given Sodium Chloride (Ns Flush) 2 ml IV.FLUSH BID [facility] Last Admin: 03/04/18 08:17 Dose: 2 ml Sodium Chloride (Ns Flush) 2 ml IV.FLUSH PRN PRN PRN Reason: FLUSH AFTER USING IV ACCESS Allergies Allergy/AdvReac Type Severity Reaction Status Date / Time No Known Allergies Allergy Verified 03/03/18 15:28 Home Medications Medication Instructions Recorded Confirmed Type amlodipine [Norvasc] 5 mg PO DAILY 03/03/18 03/03/18 History dicyclomine 20 mg PO QID 03/03/18 03/03/18 History ibuprofen 800 mg PO TID 03/03/18 03/03/18 History metoclopramide HCl [Reglan] 10 mg PO TID 03/03/18 03/03/18 History ondansetron HCl [Zofran] 8 mg PO TID PRN 03/03/18 03/03/18 History potassium chloride 20 meq PO BID 03/03/18 03/03/18 History sitagliptin [Januvia] 100 mg PO DAILY 03/03/18 03/03/18 History Physical Exam Vital Signs - 24 hr 03/03/18 14:28 03/03/18 15:25 03/03/18 16:10 Temperature 98.4 F 97.8 F Pulse Rate 93 H Respiratory Rate 16 18 17 Blood Pressure 95/63 L 123/78 Pulse Oximetry 99 100 03/03/18 16:35 03/03/18 18:04 03/03/18 21:40 Temperature 98 F 97.9 F Pulse Rate 84 86 Respiratory Rate 16 16 Blood Pressure 130/76 125/66 Pulse Oximetry 99 100 98 03/03/18 22:15 03/03/18 23:25 03/04/18 01:14 Temperature 98.0 F Pulse Rate 87 83 Respiratory Rate 18 18 Blood Pressure 110/67 Pulse Oximetry 96 03/04/18 02:12 03/04/18 03:25 Temperature 98.0 F Pulse Rate 82 Respiratory Rate 18 18 Blood Pressure 113/69 Pulse Oximetry 97 Physical Exam: GENERAL: This is a well-nourished, well-developed patient, in no apparent distress. SKIN: No rashes, ecchymoses or lesions. Cool and dry. HEAD: Atraumatic. Normocephalic. No temporal or scalp tenderness. EYES: Pupils equal round and reactive. Extraocular motions intact. No scleral icterus. No injection or drainage. ENT: Nose without bleeding, purulent drainage or septal hematoma. Throat without erythema, tonsillar hypertrophy or exudate. Uvula midline. Airway patent. NECK: Trachea midline. No JVD or lymphadenopathy. Supple, nontender, no meningeal signs. CARDIOVASCULAR: Regular rate and rhythm without murmurs, gallops, or rubs. RESPIRATORY: Clear to auscultation. Breath sounds equal bilaterally. No wheezes , rales, or rhonchi. GASTROINTESTINAL: Abdomen moderately distended, no peritoneal signs GENITOURINARY: No CVA tenderness, bladder not distended MUSCULOSKELETAL: Extremities without clubbing, cyanosis, or edema. No joint tenderness, effusion, or edema noted. No calf tenderness. Negative Homans sign bilaterally. NEUROLOGICAL: Awake and alert. Cranial nerves II through XII intact. Motor and sensory grossly within normal limits. Five out of 5 muscle strength in all muscle groups. Normal speech. Laboratory Results - last 24 hr 0903/03/18 03/03/18 15:20 15:20 18:25 WBC 4.8 RBC 2.70 L Hgb 8.3 L Hct 24.2 L MCV 89.7 MCH 30.8 MCHC 34.3 RDW 16.7 Plt Count 224 MPV 6.5 L Neut % (Auto) 85.6 H Lymph % (Auto) 2.2 L [place] % (Auto) 11.5 H Eos % (Auto) 0.5 Baso % (Auto) 0.2 Neut # (Auto) 4.1 Lymph # (Auto) 0.1 L [place] # (Auto) 0.6 Eos # (Auto) 0.0 Baso # (Auto) 0.0 WBC Differential . Differential Comment Auto diff final Sodium 136 Potassium 4.5 Chloride 106 Carbon Dioxide 20.9 L Anion Gap 9 BUN 16 Creatinine 1.20 H Estimated GFR 55 L POC Glucose Random Glucose 121 H Calcium 8.7 Total Bilirubin 0.5 AST 10 L ALT 16 Alkaline Phosphatase 121 H Total Creatine Kinase Troponin I Total Protein 7.4 Albumin 2.6 L Lipase 35 L Urine Color Straw Urine Clarity Clear Urine pH 5.0 Ur Specific [place] 1.014 Urine Protein Negative Urine Glucose (UA) Negative Urine Ketones Negative Urine Occult Blood Negative Urine Nitrate Negative Urine Bilirubin Negative Urine Urobilinogen Less than 2 Ur Leukocyte Esterase Trace H Urine RBC Less than 1 Urine WBC 8 H Ur Squamous Epith Cells 1 Urine Bacteria Occasional H Urine Mucus Few H Micro UA Comment Culture not ind Ur Microscopic Review Not Reportable Urine Culture Comments Culture not ind 03/03/18 03/03/18 03/04/18 21:52 22:40 04:50 WBC RBC Hgb Hct MCV MCH MCHC RDW Plt Count MPV Neut % (Auto) Lymph % (Auto) [place] % (Auto) Eos % (Auto) Baso % (Auto) Neut # (Auto) Lymph # (Auto) [place] # (Auto) Eos # (Auto) Baso # (Auto) WBC Differential Differential Comment Sodium Potassium Chloride Carbon Dioxide Anion Gap BUN Creatinine Estimated GFR POC Glucose 100 Random Glucose Calcium Total Bilirubin AST ALT Alkaline Phosphatase Total Creatine Kinase 22 L 24 L Troponin I Less than 0.02 L Less than 0.02 L Total Protein Albumin Lipase Urine Color Urine Clarity Urine pH Ur Specific [place] Urine Protein Urine Glucose (UA) Urine Ketones Urine Occult Blood Urine Nitrate Urine Bilirubin Urine Urobilinogen Ur Leukocyte Esterase Urine RBC Urine WBC Ur Squamous Epith Cells Urine Bacteria Urine Mucus Micro UA Comment Ur Microscopic Review Urine Culture Comments 03/04/18 03/04/18 04:50 04:50 WBC 4.1 RBC 2.45 L Hgb 7.6 L Hct 22.2 L MCV 90.4 MCH 30.9 MCHC 34.2 RDW 17.6 H Plt Count 204 MPV 6.2 L Neut % (Auto) 84.5 H Lymph % (Auto) 2.5 L [place] % (Auto) 12.1 H Eos % (Auto) 0.6 Baso % (Auto) 0.3 Neut # (Auto) 3.4 Lymph # (Auto) 0.1 L [place] # (Auto) 0.5 Eos # (Auto) 0.0 Baso # (Auto) 0.0 WBC Differential . Differential Comment Auto diff final Sodium 138 Potassium 4.6 Chloride 108 H Carbon Dioxide 21.8 Anion Gap 8 BUN 12 Creatinine 1.12 H Estimated GFR 60 L POC Glucose Random Glucose 117 H Calcium 8.2 L Total Bilirubin 0.4 AST 9 L ALT 13 Alkaline Phosphatase 105 Total Creatine Kinase Troponin I Total Protein 6.9 Albumin 2.3 L Lipase Urine Color Urine Clarity Urine pH Ur Specific [place] Urine Protein Urine Glucose (UA) Urine Ketones Urine Occult Blood Urine Nitrate Urine Bilirubin Urine Urobilinogen Ur Leukocyte Esterase Urine RBC Urine WBC Ur Squamous Epith Cells Urine Bacteria Urine Mucus Micro UA Comment Ur Microscopic Review Urine Culture Comments Result Diagrams: 03/04/18 04:50 03/04/18 04:50 Imaging: ITS Impressions Chest X-Ray 03/03/18 00:00 CONCLUSION: No acute cardiopulmonary disease. Abdomen/Pelvis CT 03/03/18 16:54 There is a noncalcified nodule in the left lower lobe again seen on axial image 1. Review of bone windows demonstrate levoscoliosis and degenerative changes of the lumbar spine. There are no pleural or pericardial effusions. Liver, gallbladder, spleen, pancreas, adrenal glands unremarkable. There is cortical thinning of both kidneys with parenchymal scarring of the right kidney noted. There is mild right-sided hydronephrosis again seen. There is severe left hydronephrosis with decreased enhancement of the left kidney as compared to the right, and there is severe left hydroureter identified. This extends distally into the pelvis, distal left ureter obscured on axial image 66. This is secondary to a heterogeneous soft tissue mass at the level of the cervix. There is fluid and air seen centrally within this mass on axial image 72. This measures approximately 5.1 x 6.8 cm in AP and transverse dimension, likely stable in size. There is abnormal thickening of the endometrial stripe versus fluid expanding the endometrial cavity up to 3.4 cm in transverse dimension. There is a mass at the uterine fundus to the left of midline measuring 2.9 x 2.5 cm in AP transverse dimension. There is adenopathy in the retroperitoneum identified. The left para-aortic lymph node identified previously is decreased in size today measuring 1.6 cm in short axis dimension, previously 2.6 cm in short axis dimension. CONCLUSION: 1. Irregular ill-defined mass at the level of the cervix with either necrosis or abnormal fluid and air distending the endocervical region, and endometrial thickening versus fluid distending the endometrial cavity. This is consistent with the patient's known cervical carcinoma. 2. Severe left hydronephrosis and mild right hydronephrosis and hydroureter identified. There is decreased enhancement of the left kidney as compared to the right. 3. Left lower lobe pulmonary nodule is stable. 4. Left para-aortic necrotic lymph node is decreased in size today. Abdomen X-Ray 03/04/18 02:30 CONCLUSION: The nasogastric tube is coiled in the upper stomach. Assessment and Plan - Assessment (1) Bilateral hydronephrosis Code(s): N13.30 - Unspecified hydronephrosis Status: Acute - Plan Urologic impression: 1. Chronic bilateral hydronephrosis related to the patient's known history of cervical cancer with mass-effect along with bilateral lymphadenopathy. 2. Renal cortical thinning related to chronic bilateral hydronephrosis Plan: Will make arrangements for placement of bilateral ureteral stents sometime this week.
[2018-03-04] MEDS: amLODIPine 5 MG Tablet PO SCH (09:30)
--- NOTE | 2018-03-04 11:52 | ECG ---
Date Performed: 03/04/2018 Time Performed: 03:29:00 PTAGE: 62 years EKG: Sinus rhythm Leftward axis Borderline ECG Since the PREVIOUS TRACING , no significant change noted PREVIOUS TRACIN12/21/2017 12.58 DOCTOR: Robbi Pratt Interpretating Date/Time 03/04/2018 11:49:30
--- NOTE | 2018-03-04 14:19 | P.PNFP ---
Subjective Interval history: Patient sitting up in chair, NG tube in place. Minimal drainage from NG tube, in fact nothing in the canister seen. No nausea or vomiting overnight. No diarrhea overnight. Has some diffuse abdominal pain, no localization, no peritoneal signs. No chest pain or shortness of breath. No extremity swelling. Results - Labs Result diagrams: 03/04/18 04:50 03/04/18 04:50 Abnormal lab results 03/03/18 03/03/18 03/03/18 Range/Units 15:20 15:20 18:25 RBC 2.70 L (4.00-5.30) mil/mm3 Hgb 8.3 L (11.6-15.3) gm/dL Hct 24.2 L (35.0-46.0) % RDW (11.6-17.2) % MPV 6.5 L (7.0-11.0) fL Neut % (Auto) 85.6 H (16.0-70.0) % Lymph % (Auto) 2.2 L (9.0-44.0) % [place] % (Auto) 11.5 H (0.0-8.0) % Lymph # (Auto) 0.1 L (1.0-4.8) th/mm3 Chloride (98-107) meq/L Carbon Dioxide 20.9 L (21.0-32.0) meq/L Creatinine 1.20 H (0.50-1.00) mg/dL Estimated GFR 55 L (>89) mL/min POC Glucose (68-110) mg/dl Random Glucose 121 H (74-106) mg/dL Calcium (8.5-10.1) mg/dL AST 10 L (15-37) U/L Alkaline Phosphatase 121 H (45-117) U/L Total Creatine Kinase (26-192) U/L Troponin I (0.02-0.05) ng/mL Albumin 2.6 L (3.4-5.0) g/dL Lipase 35 L (73-393) U/L Ur Leukocyte Esterase Trace H (Negative) Urine WBC 8 H (0-5) /hpf Urine Bacteria Occasional H (None) /hpf Urine Mucus Few H (Occasional) /lpf MTS Gel Crossmatch 03/03/18 03/04/18 03/04/18 Range/Units 22:40 04:50 04:50 RBC 2.45 L (4.00-5.30) mil/mm3 Hgb 7.6 L (11.6-15.3) gm/dL Hct 22.2 L (35.0-46.0) % RDW 17.6 H (11.6-17.2) % MPV 6.2 L (7.0-11.0) fL Neut % (Auto) 84.5 H (16.0-70.0) % Lymph % (Auto) 2.5 L (9.0-44.0) % [place] % (Auto) 12.1 H (0.0-8.0) % Lymph # (Auto) 0.1 L (1.0-4.8) th/mm3 Chloride (98-107) meq/L Carbon Dioxide (21.0-32.0) meq/L Creatinine (0.50-1.00) mg/dL Estimated GFR (>89) mL/min POC Glucose (68-110) mg/dl Random Glucose (74-106) mg/dL Calcium (8.5-10.1) mg/dL AST (15-37) U/L Alkaline Phosphatase (45-117) U/L Total Creatine Kinase 22 L 24 L (26-192) U/L Troponin I Less than 0.02 L Less than 0.02 L (0.02-0.05) ng/mL Albumin (3.4-5.0) g/dL Lipase (73-393) U/L Ur Leukocyte Esterase (Negative) Urine WBC (0-5) /hpf Urine Bacteria (None) /hpf Urine Mucus (Occasional) /lpf MTS Gel Crossmatch 03/04/18 03/04/18 03/04/18 Range/Units 04:50 08:16 10:37 RBC (4.00-5.30) mil/mm3 Hgb (11.6-15.3) gm/dL Hct (35.0-46.0) % RDW (11.6-17.2) % MPV (7.0-11.0) fL Neut % (Auto) (16.0-70.0) % Lymph % (Auto) (9.0-44.0) % [place] % (Auto) (0.0-8.0) % Lymph # (Auto) (1.0-4.8) th/mm3 Chloride 108 H (98-107) meq/L Carbon Dioxide (21.0-32.0) meq/L Creatinine 1.12 H (0.50-1.00) mg/dL Estimated GFR 60 L (>89) mL/min POC Glucose 123 H (68-110) mg/dl Random Glucose 117 H (74-106) mg/dL Calcium 8.2 L (8.5-10.1) mg/dL AST 9 L (15-37) U/L Alkaline Phosphatase (45-117) U/L Total Creatine Kinase (26-192) U/L Troponin I (0.02-0.05) ng/mL Albumin 2.3 L (3.4-5.0) g/dL Lipase (73-393) U/L Ur Leukocyte Esterase (Negative) Urine WBC (0-5) /hpf Urine Bacteria (None) /hpf Urine Mucus (Occasional) /lpf MTS Gel Crossmatch See Detail Short CBC 03/03/18 03/04/18 Range/Units 15:20 04:50 WBC 4.8 4.1 (4.0-11.0) th/mm3 Hgb 8.3 L 7.6 L (11.6-15.3) gm/dL Hct 24.2 L 22.2 L (35.0-46.0) % Plt Count 224 204 (150-450) th/mm3 BMP 03/03/18 03/04/18 15:20 04:50 Sodium 136 138 Potassium 4.5 4.6 Chloride 106 108 H Carbon Dioxide 20.9 L 21.8 BUN 16 12 Creatinine 1.20 H 1.12 H Calcium 8.7 8.2 L Cardiac Enzymes 03/03/18 03/04/18 Range/Units 22:40 04:50 Total Creatine Kinase 22 L 24 L (26-192) U/L Troponin I Less than 0.02 L Less than 0.02 L (0.02-0.05) ng/mL Liver Function 03/03/18 03/04/18 Range/Units 15:20 04:50 Total Bilirubin 0.5 0.4 (0.2-1.0) mg/dL AST 10 L 9 L (15-37) U/L ALT 16 13 (10-53) U/L Alkaline Phosphatase 121 H 105 (45-117) U/L Albumin 2.6 L 2.3 L (3.4-5.0) g/dL Urine 03/03/18 Range/Units 18:25 Urine Color Straw (Yellw/Straw) Urine Clarity Clear (Clear) Urine pH 5.0 (5.0-8.5) Ur Specific [place] 1.014 (1.002-1.035) Urine Protein Negative (Neg-Trace) mg/dL Urine Glucose (UA) Negative (Negative) mg/dL - Imaging Impressions Chest X-Ray 03/03/18 00:00 CONCLUSION: No acute cardiopulmonary disease. Abdomen/Pelvis CT 03/03/18 16:54 There is a noncalcified nodule in the left lower lobe again seen on axial image 1. Review of bone windows demonstrate levoscoliosis and degenerative changes of the lumbar spine. There are no pleural or pericardial effusions. Liver, gallbladder, spleen, pancreas, adrenal glands unremarkable. There is cortical thinning of both kidneys with parenchymal scarring of the right kidney noted. There is mild right-sided hydronephrosis again seen. There is severe left hydronephrosis with decreased enhancement of the left kidney as compared to the right, and there is severe left hydroureter identified. This extends distally into the pelvis, distal left ureter obscured on axial image 66. This is secondary to a heterogeneous soft tissue mass at the level of the cervix. There is fluid and air seen centrally within this mass on axial image 72. This measures approximately 5.1 x 6.8 cm in AP and transverse dimension, likely stable in size. There is abnormal thickening of the endometrial stripe versus fluid expanding the endometrial cavity up to 3.4 cm in transverse dimension. There is a mass at the uterine fundus to the left of midline measuring 2.9 x 2.5 cm in AP transverse dimension. There is adenopathy in the retroperitoneum identified. The left para-aortic lymph node identified previously is decreased in size today measuring 1.6 cm in short axis dimension, previously 2.6 cm in short axis dimension. CONCLUSION: 1. Irregular ill-defined mass at the level of the cervix with either necrosis or abnormal fluid and air distending the endocervical region, and endometrial thickening versus fluid distending the endometrial cavity. This is consistent with the patient's known cervical carcinoma. 2. Severe left hydronephrosis and mild right hydronephrosis and hydroureter identified. There is decreased enhancement of the left kidney as compared to the right. 3. Left lower lobe pulmonary nodule is stable. 4. Left para-aortic necrotic lymph node is decreased in size today. Abdomen X-Ray 03/04/18 02:30 CONCLUSION: The nasogastric tube is coiled in the upper stomach. Physical Exam Vital signs: Vital Signs 03/03/18 14:28 03/03/18 15:25 03/03/18 16:10 Temperature 98.4 F 97.8 F Pulse Rate 93 H Respiratory Rate 16 18 17 Blood Pressure 95/63 L 123/78 Pulse Oximetry 99 100 03/03/18 16:35 03/03/18 18:04 03/03/18 21:40 Temperature 98 F 97.9 F Pulse Rate 84 86 Respiratory Rate 16 16 Blood Pressure 130/76 125/66 Pulse Oximetry 99 100 98 03/03/18 22:15 03/03/18 23:25 03/04/18 01:14 Temperature 98.0 F Pulse Rate 87 83 Respiratory Rate 18 18 Blood Pressure 110/67 Pulse Oximetry 96 03/04/18 02:12 03/04/18 03:25 03/04/18 08:00 Temperature 98.0 F 98.0 F Pulse Rate 82 83 Respiratory Rate 18 18 16 Blood Pressure 113/69 119/67 Pulse Oximetry 97 98 03/04/18 10:30 03/04/18 12:00 Temperature 97.7 F Pulse Rate 75 Respiratory Rate 16 Blood Pressure 116/69 Pulse Oximetry 98 99 Intake & Output 03/03/18 03/04/18 03/04/18 18:59 06:59 18:59 Intake Total 1000 / 1000 50 / 50 1000 / 1000 Output Total 500 / 500 Balance 500 / 500 50 / 50 1000 / 1000 Weight 71.214 kg 70.7 kg Intake: IV 1000 / 1000 50 / 50 1000 / 1000 D5W/Normal Saline Inj 1,000 ML 1000 / 1000 @ 110 mls/hr IV.CONT .Q9H6M [facility] Rx#:[id number] NS Inj 1,000 ML @ 110 mls/hr IV 50 / 50 .CONT .Q9H6M [facility] Rx#:[id number] NS Inj 1,000 ML @ Wide Open IV. 1000 / 1000 SIG BOLUS ONE Rx#:[id number] Oral 0 / 0 Output: Urine 500 / 500 Other: # Voids 1 2 Date of Last Bowel Movement 03/03/18 # Bowel Movements 0 Weight On Admission 71.21 kg Narrative: General: Sitting up in chair, NG tube in place, minimal drainage from NG tube, appears comfortable Skin: No rashes or lesions HEENT: Normocephalic, no nasal drainage Neck: normal range of motion CV: RRR, no murmurs, rubs, or gallops. Chemotherapy port in right chest wall. Lungs: CTAB. Abdomen: Tenderness to palpation diffusely, no localization, no rebound tenderness, no guarding. Minimal bowel sounds in all four quadrant. Ext: No edema or cyanosis Neuro: Awake, alert. Assessment and Plan - Assessment (1) Partial bowel obstruction Code(s): K56.600 - Partial intestinal obstruction, unspecified as to cause Status: Acute Plan: Patient presenting with abdominal pain for the past month, recently worsening, along with nausea, vomiting, and diarrhea for the past 4 days. Multiple dilated loops of bowel with air fluid levels, partial obstruction possible. DDx includes effect of radiation, tumor/mass effect, gastroenteritis. Lipase normal. -Hold home dicyclomine -Tylenol 650 mg p.o. every 4 hours as needed pain scale 1-2 or fever > 100.4. F -Morphine 2 mg IV every 3 as needed for pain scale 3-5 -Morphine 4 mg IV every 3 as needed for pain scale 6-10 -Zofran 4 mg IV every 6 as needed for nausea -Nursing staff to call if patient requires breakthrough pain medication, or concern for acute abdomen. -NG tube placement, monitor output, minimal today -Keep NPO for now, advance as tolerated, maybe later today -D5W NS at 110 mls/hr until eating (2) Cervical cancer Code(s): C53.9 - Malignant neoplasm of cervix uteri, unspecified Status: Chronic Plan: Patient has a history of cervical cancer for which she sees rate inserter oncologist, Dr. Marks. Patient underwent surgery a couple of months ago. She is now on chemotherapy and radiation therapy. Large tumor with one node and no metastasis , followed by Dr. Marks. Receiving radiation and chemotherapy. Imaging: -CT abd/pelvis showed: Irregular ill-defined mass left of midline measuring 2.9 x 2.5 cm in AP transverse dimension at the level of the cervix with either necrosis or abnormal fluid and air distending the endocervical region, and endometrial thickening versus fluid distending the endometrial cavity. This is consistent with the patient's known cervical carcinoma. Consult: -Dr. Marks, patient rate inserter oncologist (3) Hydronephrosis Code(s): N13.30 - Unspecified hydronephrosis Status: Chronic Plan: Imaging: CT Abd/pelvis showed: Severe left hydronephrosis and mild right hydronephrosis and hydroureter identified. There is decreased enhancement of the left kidney as compared to the right. Labs: -CMP showed: BUN/Cr 16/1.2, with estimated GFR of 55, today improved to BUN 12, Cr 1.12 and GFR 60 Consult: -Urology consulted, plan for bilateral ureteral stents (4) Hypertension Code(s): I10 - Essential (primary) hypertension Status: Acute Plan: Patient with history of hypertension -Continue home amlodipine 5 mg p.o. daily (5) Diabetes mellitus Code(s): E11.9 - Type 2 diabetes mellitus without complications Status: Chronic Plan: Patient with history of diabetes mellitus, for which she takes Januvia. -Hold home Januvia -Placed on sliding scale with frequent accuchecks while in hospital -Hypoglycemia protocol -D5W NS at 110 mls/hr maintenance fluids,while patient is NPO (6) Chronic back pain Code(s): M54.9 - Dorsalgia, unspecified; G89.29 - Other chronic pain Status: Chronic Plan: Patient has history of chronic back pain, for which she takes ibuprofen 800 mg 3 times daily. -Hold home ibuprofen (7) Nutrition, metabolism, and development symptoms Code(s): R63.8 - Other symptoms and signs concerning food and fluid intake Status: Acute Plan: Fluids: D5W NS at 110 mls/hr Electrolytes: No significant electrolyte abnormalities noted at this time. We will continue to monitor and replete as needed. Diet: NPO for now, due to nausea and vomiting. Advance diet as tolerated. (8) DVT prophylaxis Status: Acute Plan: DVT prophylaxis: Bilateral SCDs SDW resident team.
--- NOTE | 2018-03-05 01:18 | MB ---
cc: Prashant Fagan MD DATE: 03/04/2018 REASON FOR CONSULTATION: Consult requested by hospitalist for evaluation and management of cervical cancer in a patient who is admitted with abdominal pain. HISTORY OF PRESENT ILLNESS: This is a 62-year-old -[place] female. She is under the care of Dr. Marks, PIECE WORK INSPECTOR oncologist, and Dr. Jose, radiation oncologist. She was diagnosed with locally advanced cervical cancer and she underwent external beam radiation therapy plus cisplatin chemotherapy as a radiosensitizer. She did well. Recently, about 2 months ago, she was found to have recurrent disease. She was started on weekly Taxol chemotherapy. So far, she has been tolerating the treatment well. The patient's last chemotherapy was a week ago. She came into the emergency room yesterday complaining of abdominal pain and back pain. She also was complaining of nausea with vomiting and unable to keep anything down for the last 2-[address] scan of the abdomen and pelvis, which showed mild right-sided hydronephrosis and severe left hydronephrosis. There is a soft tissue mass noted at the level of the cervix, which is causing the hydronephrosis. There is a mass noted at the uterine fundus to the left of midline measuring 2.9 cm. There is retroperitoneal lymphadenopathy noted and left paraaortic lymphadenopathy noted as well. She has left lower lobe pulmonary nodule also. The patient had a chest x-ray, which is negative. She has bowel obstruction and she is admitted to the hospital. Dr. Marks has been consulted. He is off this weekend and I am covering for him. The patient has been evaluated by urologist for hydronephrosis. Dr. Gallardo saw her and is planning to place ureteral stent on both sides. She has a nasogastric tube for bowel obstruction. She is getting antiemetics. The rest of the review of systems is negative. PAST MEDICAL HISTORY: Asthma, cataracts, COPD, coronary artery disease, diabetes mellitus, hypertension, and cervical cancer. PAST SURGICAL HISTORY: Cataract surgery, laparoscopic repair of a perforated gastric ulcer, tonsillectomy, colonoscopy. ALLERGIES: None. MEDICATIONS PRIOR TO COMING TO THE HOSPITAL: 1. Amlodipine. 2. Colace. 3. Diabetic medication. 4. Humulin R. 5. Lortab 6. Pantoprazole. FAMILY HISTORY: None for malignancy. SOCIAL HISTORY: The patient is single. She used to smoke cigarettes, 2 packs a day, quit about a year ago. She does not drink alcohol. PHYSICAL EXAMINATION: GENERAL: This is a well-developed, female in mild distress. VITAL SIGNS: Temperature 97.7, heart rate is 86, blood pressure 120/69. HEENT: PERRLA. EOMI. NECK: No lymphadenopathy noted. LUNGS: Clear with no wheezing, rhonchi, or rales. HEART: Regular rate and rhythm. ABDOMEN: Decreased bowel sounds. Abdomen is distended. No rebound tenderness noted. EXTREMITIES: No pedal edema. NEUROLOGIC: Awake, alert, oriented x3. SKIN: No significant lesions noted. ASSESSMENT: 1. Nausea, vomiting and abdominal pain due to partial bowel obstruction. 2. Metastatic recurrent cervical cancer, currently on palliative Taxol chemotherapy. 3. Bilateral hydronephrosis, more on the left than the right, due to pelvic mass from malignancy. PLAN: I have reviewed her available records and I have discussed with the patient regarding the partial bowel obstruction as well as bilateral hydronephrosis. Urologist, Dr. Gallardo, saw her and is planning to place bilateral ureteral stents. Her creatinine is 1.12 today. Yesterday it was 1.20. GFR is 60. CBC showed white count of 4.1, hemoglobin 7.6, platelet count is 204. The patient is on weekly Taxol chemotherapy. She has NG tube for partial bowel obstruction. Hopefully, her bowel obstruction will resolve with the conservative management and she may not require any surgery for this. I will have Dr. Marks see her tomorrow. Thank you for asking my opinion. MD HAYDE Pérez/gina , 11:59 PM , 12:13 AM
[2018-03-05] MEDS: Morphine Inj 4 MG/ML Vial IV.PUSH PRN ×5 (02:57→20:05)
[2018-03-05] MEDS: Dextrose 5%/NaCl 0.9% Inj 1,000 ML IV.CONT SCH ×2 (02:58→10:05)
[2018-03-05 04:58] LABS: Hematocrit 22.1 % (35.0-46.0); Hemoglobin 7.4 gm/dL (11.6-15.3); Mean Corpuscular HGB Conc 33.7 % (32.0-36.0); Mean Corpuscular Hemoglobin 30.6 pg (27.0-34.0); Mean Platelet Volume 6.2 fL (7.0-11.0); Platelet Count 193 th/mm3 (150-450); Red Blood Count 2.43 mil/mm3 (4.00-5.30); Red Cell Distribution Width 17.5 % (11.6-17.2); White Blood Count 3.8 th/mm3 (4.0-11.0)
[2018-03-05 05:21] LABS: Calcium 8.5 mg/dL (8.5-10.1); Carbon Dioxide 21.8 meq/L (21.0-32.0)
--- NOTE | 2018-03-05 08:38 | P.PNONC ---
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 Gallardo to help improve kidney function patient would like to continue with IV chemotherapy once she has improved and can be discharge. Patient currently on weekly Taxol for recurrent cervical cancer Objective Vital Signs/Intake & Output: Vital Signs 03/04/18 10:30 03/04/18 12:00 03/04/18 16:00 Temperature 97.7 F 97.4 F L Pulse Rate 75 80 Respiratory Rate 16 16 Blood Pressure 116/69 128/70 Pulse Oximetry 98 99 100 03/04/18 19:45 03/04/18 19:48 03/04/18 20:00 Temperature 97.7 F Pulse Rate 84 86 Respiratory Rate 18 Blood Pressure 120/69 Pulse Oximetry 96 98 03/04/18 23:15 03/05/18 00:00 03/05/18 03:20 Temperature 98.1 F 98.8 F Pulse Rate 79 79 92 H Respiratory Rate 17 17 Blood Pressure 121/70 123/67 Pulse Oximetry 99 96 03/05/18 04:05 Temperature Pulse Rate 80 Respiratory Rate Blood Pressure Pulse Oximetry Intake & Output 03/04/18 03/05/18 03/05/18 18:59 06:59 18:59 Intake Total 1000 / 1000 0 / 0 Output Total 0 / 0 Balance 1000 / 1000 0 / 0 Weight 70.7 kg Intake: IV 1000 / 1000 D5W/Normal Saline Inj 1,000 ML 1000 / 1000 @ 110 mls/hr IV.CONT .Q9H6M [facility] Rx#:[id number] Oral 0 / 0 0 / 0 Output: Gastric Drainage 0 / 0 Right Nare 0 / 0 Other: # Voids 1 2 Date of Last Bowel Movement 03/03/18 03/03/18 # Bowel Movements 0 Result Diagrams: 03/05/18 04:07 03/05/18 04:07 Laboratory Results: Laboratory Results - last 24 hr 03/04/18 03/04/18 03/04/18 08:16 10:37 18:45 WBC RBC Hgb Hct MCV MCH MCHC RDW Plt Count MPV Sodium Potassium Chloride Carbon Dioxide Anion Gap BUN Creatinine Estimated GFR POC Glucose 123 H 149 H Random Glucose Calcium Blood Type O Positive Antibody Screen Negative MTS Gel Crossmatch See Detail 03/04/18 03/05/18 03/05/18 20:22 04:07 04:07 WBC 3.8 L RBC 2.43 L Hgb 7.4 L Hct 22.1 L MCV 91.0 MCH 30.6 MCHC 33.7 RDW 17.5 H Plt Count 193 MPV 6.2 L Sodium 143 Potassium 4.0 Chloride 111 H Carbon Dioxide 21.8 Anion Gap 10 BUN 10 Creatinine 0.99 Estimated GFR 69 L POC Glucose 163 H Random Glucose 126 H Calcium 8.5 Blood Type Antibody Screen MTS Gel Crossmatch 03/05/18 08:21 WBC RBC Hgb Hct MCV MCH MCHC RDW Plt Count MPV Sodium Potassium Chloride Carbon Dioxide Anion Gap BUN Creatinine Estimated GFR POC Glucose 139 H Random Glucose Calcium Blood Type Antibody Screen MTS Gel Crossmatch Medications: Active Medications Generic Name Dose Route Start Last Admin Trade Name Freq PRN Reason Stop Dose Admin Amlodipine Besylate 5 mg 03/04/18 09:00 03/04/18 09:30 Norvasc PO 5 mg DAILY SAMANTHA Administration Dextrose/Sodium Chloride 1,000 mls @ 110 mls/hr 03/03/18 21:00 03/05/18 02:58 D5w/Normal Saline Inj IV.CONT 110 mls/hr .Q9H6M [facility] Administration Insulin Aspart 0 unit 03/03/18 21:00 03/04/18 21:42 Novolog Insulin Correctional Sugar Inj SQ 1 unit ACHS SAMANTHA Administration Protocol Morphine Sulfate 4 mg 03/03/18 20:45 03/05/18 08:16 Morphine Inj IV.PUSH 4 mg Q3H PRN Administration PAIN 6-10;IF UNABLE TO TAKE PO Potassium Chloride 20 meq 03/04/18 09:00 03/04/18 21:42 Kcl PO Not Given BID SAMANTHA Sodium Chloride 2 ml 03/03/18 21:00 03/04/18 21:43 Ns Flush IV.FLUSH Not Given BID SAMANTHA Sodium Chloride 2 ml 03/03/18 22:46 03/05/18 02:58 Ns Flush IV.FLUSH 2 ml PRN PRN Administration FLUSH AFTER USING IV ACCESS Objective Remarks: GENERAL: Well-nourished, well-developed patient. SKIN: Warm and dry. HEAD: Normocephalic. NG tube to LIWS EYES: No scleral icterus. No injection or drainage. NECK: Supple, trachea midline. No JVD or lymphadenopathy. LYMPHATIC: No adenopathy. CARDIOVASCULAR: Regular rate and rhythm without murmurs. RESPIRATORY: Breath sounds equal bilaterally. No accessory muscle use. GASTROINTESTINAL: Abdomen soft, decreased BS X 4 EXTREMITIES: No cyanosis, or edema. MUSCULOSKELETAL: Adequate muscle tone. NEUROLOGICAL: No obvious focal deficit. Awake, alert, and oriented x3. PSYCHIATRIC: Appropriate mood and affect; insight and judgment normal. Assessment/Plan (1) Cervical cancer Code(s): C53.9 - Malignant neoplasm of cervix uteri, unspecified Status: Chronic - Plan recurrent cervical cancer currently on weekly Taxol chemotherapy on hold d/t bowel obstruction and MIK from hydronephrosis resulting from tumor burden NG tube to LIWS NPO IV hydration and supportive care continue current management, medicine team following and we appreciate assistance and care of this patient if not improvement with medical management may need to consider surgical consult Urology following for MIK stents to be placed d/t hydronephrosis daily labs...creat WNL with rehydration patient on neutropenic precautions ANC, WNL and pt afebrile anemia continue to monitor consider blood transfusion (1) Cervical cancer Qualifiers: Malignant neoplasm of cervix location: unspecified location Qualified Code(s) : C53.9 - Malignant neoplasm of cervix uteri, unspecified
[2018-03-05] MEDS: Insulin NovoLOG Aspart Correctional Sugar Inj SQ SCH ×3 (09:25→17:47)
[2018-03-05] MEDS: Potassium Chloride 10 MEQ ER Capsule PO SCH ×2 (10:36→23:56)
[2018-03-05] MEDS: amLODIPine 5 MG Tablet PO SCH (10:36)
--- NOTE | 2018-03-05 13:59 | P.PN ---
Physical Exam Vital signs: Vital Signs 03/04/18 16:00 03/04/18 19:45 03/04/18 19:48 Temperature 97.4 F L 97.7 F Pulse Rate 80 84 86 Respiratory Rate 16 18 Blood Pressure 128/70 120/69 Pulse Oximetry 100 96 03/04/18 20:00 03/04/18 23:15 03/05/18 00:00 Temperature 98.1 F Pulse Rate 79 79 Respiratory Rate 17 Blood Pressure 121/70 Pulse Oximetry 98 99 03/05/18 03:20 03/05/18 04:05 03/05/18 08:00 Temperature 98.8 F 98.4 F Pulse Rate 92 H 80 78 Respiratory Rate 17 16 Blood Pressure 123/67 141/72 H Pulse Oximetry 96 99 03/05/18 09:25 03/05/18 12:00 Temperature 98.4 F Pulse Rate 85 Respiratory Rate 16 16 Blood Pressure 112/65 Pulse Oximetry 99 Intake & Output 03/04/18 03/05/18 03/05/18 18:59 06:59 18:59 Intake Total 1000 / 1000 0 / 0 1000 / 1000 Output Total 0 / 0 Balance 1000 / 1000 0 / 0 1000 / 1000 Weight 70.7 kg Intake: IV 1000 / 1000 1000 / 1000 D5W/Normal Saline Inj 1,000 ML 1000 / 1000 1000 / 1000 @ 110 mls/hr IV.CONT .Q9H6M [facility] Rx#:[id number] Oral 0 / 0 0 / 0 Output: Gastric Drainage 0 / 0 Right Nare 0 / 0 Other: # Voids 1 2 Date of Last Bowel Movement 03/03/18 03/03/18 03/03/18 # Bowel Movements 0 Results - Labs CBC & Chem 7: 03/05/18 04:07 03/05/18 04:07 Laboratory Results - last 24 hr 03/04/18 03/04/18 03/05/18 18:45 20:22 04:07 WBC 3.8 L RBC 2.43 L Hgb 7.4 L Hct 22.1 L MCV 91.0 MCH 30.6 MCHC 33.7 RDW 17.5 H Plt Count 193 MPV 6.2 L Sodium Potassium Chloride Carbon Dioxide Anion Gap BUN Creatinine Estimated GFR POC Glucose 149 H 163 H Random Glucose Calcium 03/05/18 03/05/18 03/05/18 04:07 08:21 12:23 WBC RBC Hgb Hct MCV MCH MCHC RDW Plt Count MPV Sodium 143 Potassium 4.0 Chloride 111 H Carbon Dioxide 21.8 Anion Gap 10 BUN 10 Creatinine 0.99 Estimated GFR 69 L POC Glucose 139 H 141 H Random Glucose 126 H Calcium 8.5 Assessment and Plan - Assessment (1) Cervical cancer Code(s): C53.9 - Malignant neoplasm of cervix uteri, unspecified Status: Chronic - Plan She is seen, findings reviewed, examined and counselled by me in conjunction with ERNESTO Mcclain. I agree with her findings, assessment & plan. KUB with NGT curled in the stomach (possibly into proximal small bowel), no NGT output. Therefore, NGT pulled back 10-12 cm and re-attached to suction. OOB to chair, feels hungry but no flatus or bm. a&o x 3, nad abdomen distended, hypoactive bs, no rebound or guarding Findings reviewed, q&a, she understands. She remains hopeful, but understands the difficult nature of her situation with recurrent, multifocal cervix cancer contributing to her feeling poorly, sbo, bilateral hydronephrosis. She wishes to remain aggressive in her fight against this illness. (1) Cervical cancer Qualifiers: Malignant neoplasm of cervix location: unspecified location Qualified Code(s) : C53.9 - Malignant neoplasm of cervix uteri, unspecified
--- NOTE | 2018-03-05 16:40 | P.PNFP ---
Subjective Interval history: Pt seen and examined today. Pt states she is hungry and would like to know when she can eat and drink. She also complains of abdominal pain that continues to bother her, specially on the left side and left back. We discussed the findings on CT and possibility of bowel obstruction. Pt states her last BM was Monday. She denies any N/V. She denies shortness of breath, chest pain, fevers or chills. <Ramesh ToddGabby - 03/05/18 16:40> Results - Labs Result diagrams: 03/05/18 04:07 03/05/18 04:07 <George Santoro L - 03/05/18 18:45> Abnormal lab results 03/04/18 03/04/18 03/05/18 Range/Units 18:45 20:22 04:07 WBC 3.8 L (4.0-11.0) th/mm3 RBC 2.43 L (4.00-5.30) mil/mm3 Hgb 7.4 L (11.6-15.3) gm/dL Hct 22.1 L (35.0-46.0) % RDW 17.5 H (11.6-17.2) % MPV 6.2 L (7.0-11.0) fL Chloride (98-107) meq/L Estimated GFR (>89) mL/min POC Glucose 149 H 163 H (68-110) mg/dl Random Glucose (74-106) mg/dL 03/05/18 03/05/18 03/05/18 Range/Units 04:07 08:21 12:23 WBC (4.0-11.0) th/mm3 RBC (4.00-5.30) mil/mm3 Hgb (11.6-15.3) gm/dL Hct (35.0-46.0) % RDW (11.6-17.2) % MPV (7.0-11.0) fL Chloride 111 H (98-107) meq/L Estimated GFR 69 L (>89) mL/min POC Glucose 139 H 141 H (68-110) mg/dl Random Glucose 126 H (74-106) mg/dL 03/05/18 Range/Units 17:10 WBC (4.0-11.0) th/mm3 RBC (4.00-5.30) mil/mm3 Hgb (11.6-15.3) gm/dL Hct (35.0-46.0) % RDW (11.6-17.2) % MPV (7.0-11.0) fL Chloride (98-107) meq/L Estimated GFR (>89) mL/min POC Glucose 153 H (68-110) mg/dl Random Glucose (74-106) mg/dL Short CBC 03/05/18 Range/Units 04:07 WBC 3.8 L (4.0-11.0) th/mm3 Hgb 7.4 L (11.6-15.3) gm/dL Hct 22.1 L (35.0-46.0) % Plt Count 193 (150-450) th/mm3 BMP 03/05/18 04:07 Sodium 143 Potassium 4.0 Chloride 111 H Carbon Dioxide 21.8 BUN 10 Creatinine 0.99 Calcium 8.5 <Young,George L - 03/05/18 18:45> Abnormal lab results 03/04/18 03/04/18 03/05/18 Range/Units 18:45 20:22 04:07 WBC 3.8 L (4.0-11.0) th/mm3 RBC 2.43 L (4.00-5.30) mil/mm3 Hgb 7.4 L (11.6-15.3) gm/dL Hct 22.1 L (35.0-46.0) % RDW 17.5 H (11.6-17.2) % MPV 6.2 L (7.0-11.0) fL Chloride (98-107) meq/L Estimated GFR (>89) mL/min POC Glucose 149 H 163 H (68-110) mg/dl Random Glucose (74-106) mg/dL 03/05/18 03/05/18 03/05/18 Range/Units 04:07 08:21 12:23 WBC (4.0-11.0) th/mm3 RBC (4.00-5.30) mil/mm3 Hgb (11.6-15.3) gm/dL Hct (35.0-46.0) % RDW (11.6-17.2) % MPV (7.0-11.0) fL Chloride 111 H (98-107) meq/L Estimated GFR 69 L (>89) mL/min POC Glucose 139 H 141 H (68-110) mg/dl Random Glucose 126 H (74-106) mg/dL Short CBC 03/05/18 Range/Units 04:07 WBC 3.8 L (4.0-11.0) th/mm3 Hgb 7.4 L (11.6-15.3) gm/dL Hct 22.1 L (35.0-46.0) % Plt Count 193 (150-450) th/mm3 BMP 03/05/18 04:07 Sodium 143 Potassium 4.0 Chloride 111 H Carbon Dioxide 21.8 BUN 10 Creatinine 0.99 Calcium 8.5 <Ryann Mahan V - 03/05/18 16:40> Physical Exam Vital signs: Vital Signs 03/04/18 19:45 03/04/18 19:48 03/04/18 20:00 Temperature 97.7 F Pulse Rate 84 86 Respiratory Rate 18 Blood Pressure 120/69 Pulse Oximetry 96 98 03/04/18 23:15 03/05/18 00:00 03/05/18 03:20 Temperature 98.1 F 98.8 F Pulse Rate 79 79 92 H Respiratory Rate 17 17 Blood Pressure 121/70 123/67 Pulse Oximetry 99 96 03/05/18 04:05 03/05/18 08:00 03/05/18 09:25 Temperature 98.4 F Pulse Rate 80 78 Respiratory Rate 16 16 Blood Pressure 141/72 H Pulse Oximetry 99 03/05/18 12:00 03/05/18 16:00 03/05/18 17:17 Temperature 98.4 F 97.8 F Pulse Rate 85 79 Respiratory Rate 16 16 Blood Pressure 112/65 147/73 H Pulse Oximetry 99 99 99 Intake & Output 03/04/18 03/05/18 03/05/18 18:59 06:59 18:59 Intake Total 1000 / 1000 0 / 0 1600 / 1600 Output Total 0 / 0 100 / 100 Balance 1000 / 1000 0 / 0 1500 / 1500 Weight 70.7 kg Intake: IV 1000 / 1000 1000 / 1000 D5W/Normal Saline Inj 1,000 ML 1000 / 1000 1000 / 1000 @ 110 mls/hr IV.CONT .Q9H6M [facility] Rx#:[id number] Oral 0 / 0 0 / 0 600 / 600 Output: Gastric Drainage 0 / 0 100 / 100 Right Nare 0 / 0 100 / 100 Other: # Voids 1 2 4 Date of Last Bowel Movement 03/03/18 03/03/18 03/03/18 # Bowel Movements 0 0 <YvanGeorge L - 03/05/18 18:45> Vital Signs 03/04/18 19:45 03/04/18 19:48 03/04/18 20:00 Temperature 97.7 F Pulse Rate 84 86 Respiratory Rate 18 Blood Pressure 120/69 Pulse Oximetry 96 98 03/04/18 23:15 03/05/18 00:00 03/05/18 03:20 Temperature 98.1 F 98.8 F Pulse Rate 79 79 92 H Respiratory Rate 17 17 Blood Pressure 121/70 123/67 Pulse Oximetry 99 96 03/05/18 04:05 03/05/18 08:00 03/05/18 09:25 Temperature 98.4 F Pulse Rate 80 78 Respiratory Rate 16 16 Blood Pressure 141/72 H Pulse Oximetry 99 03/05/18 12:00 Temperature 98.4 F Pulse Rate 85 Respiratory Rate 16 Blood Pressure 112/65 Pulse Oximetry 99 Intake & Output 03/04/18 03/05/18 03/05/18 18:59 06:59 18:59 Intake Total 1000 / 1000 0 / 0 1000 / 1000 Output Total 0 / 0 Balance 1000 / 1000 0 / 0 1000 / 1000 Weight 70.7 kg Intake: IV 1000 / 1000 1000 / 1000 D5W/Normal Saline Inj 1,000 ML 1000 / 1000 1000 / 1000 @ 110 mls/hr IV.CONT .Q9H6M [facility] Rx#:[id number] Oral 0 / 0 0 / 0 Output: Gastric Drainage 0 / 0 Right Nare 0 / 0 Other: # Voids 1 2 Date of Last Bowel Movement 03/03/18 03/03/18 03/03/18 # Bowel Movements 0 <Ramesh ToddGabby - 03/05/18 16:40> Narrative: General: laying in bed, NG tube in place, minimal drainage from NG tube, appears comfortable Skin: No rashes or lesions HEENT: Normocephalic, no nasal drainage CV: RRR, no murmurs, rubs, or gallops. Chemotherapy port in right chest wall. Lungs: CTAB. no wheezing, no rhonchi, no rales Abdomen: Tenderness to palpation diffusely, no localization, no rebound tenderness, no guarding. Decrease bowel sounds in all four quadrant. Ext: No edema or cyanosis Neuro: Awake, alert. interacting appropriately <Ryann Mahan V - 03/05/18 16:40> Assessment and Plan - Assessment (1) Ileus Code(s): K56.7 - Ileus, unspecified Status: Acute (2) Partial bowel obstruction Code(s): K56.600 - Partial intestinal obstruction, unspecified as to cause Status: Ruled-out (3) Cervical cancer Code(s): C53.9 - Malignant neoplasm of cervix uteri, unspecified Status: Chronic (4) Hydronephrosis Code(s): N13.30 - Unspecified hydronephrosis Status: Chronic (5) Hypertension Code(s): I10 - Essential (primary) hypertension Status: Acute (6) Diabetes mellitus Code(s): E11.9 - Type 2 diabetes mellitus without complications Status: Chronic (7) Chronic back pain Code(s): M54.9 - Dorsalgia, unspecified; G89.29 - Other chronic pain Status: Chronic (8) Nutrition, metabolism, and development symptoms Code(s): R63.8 - Other symptoms and signs concerning food and fluid intake Status: Acute (9) DVT prophylaxis Status: Acute <YvanGeorge Shanks - 03/05/18 18:45> (1) Ileus Code(s): K56.7 - Ileus, unspecified Status: Acute Plan: Patient presenting with abdominal pain for the past month, recently worsening, along with nausea, vomiting, and diarrhea for the past 4 days. Discussed imaging with radiology, CT w/ dilated colon, increased fecal content, and likely ileus, possible mass effect. - Hold home dicyclomine - Tylenol 650 mg p.o. every 4 hours as needed - Follett 5/325 mg p.o cherelle 4 hours as needed - Morphine 2 mg IV every 3 as needed for breakthrough pain - Zofran 4 mg IV every 6 as needed for nausea - Discontinue NG tube - Pt NPO for now. Start liquid diet this evening - D5W NS at 110 mls/hr until eating - Pt will be NPO after midnight for stent placement tomorrow (2) Partial bowel obstruction Code(s): K56.600 - Partial intestinal obstruction, unspecified as to cause Status: Ruled-out Plan: Ruled out by discussion once again with Radiology. Diagnosis changed to Ileus. Please see plan above. (3) Cervical cancer Code(s): C53.9 - Malignant neoplasm of cervix uteri, unspecified Status: Chronic Plan: Patient has a history of cervical cancer for which she sees fuel yard operator oncologist, Dr. Marks. Patient underwent surgery a couple of months ago. She is now on chemotherapy and radiation therapy. Large tumor with one node and no metastasis , followed by Dr. Marks. Receiving radiation and chemotherapy. Imaging: -CT abd/pelvis showed: Irregular ill-defined mass left of midline measuring 2.9 x 2.5 cm in AP transverse dimension at the level of the cervix with either necrosis or abnormal fluid and air distending the endocervical region, and endometrial thickening versus fluid distending the endometrial cavity. This is consistent with the patient's known cervical carcinoma. Consult: - Dr. Marks, patient fuel yard operator oncologist. - Appreciate recommendations. (4) Hydronephrosis Code(s): N13.30 - Unspecified hydronephrosis Status: Chronic Plan: Imaging: CT Abd/pelvis showed: Severe left hydronephrosis and mild right hydronephrosis and hydroureter identified. There is decreased enhancement of the left kidney as compared to the right. Labs: -CMP showed: BUN/Cr 16/1.2, with estimated GFR of 55, yesterday improved to BUN 12, Cr 1.12 and GFR 60, today cr 0.99, BUN 10 w/ GFR 69 Consult: - Urology consulted, plan for bilateral ureteral stents - Likely placement tomorrow 03/06 (5) Hypertension Code(s): I10 - Essential (primary) hypertension Status: Acute Plan: Patient with history of hypertension -Continue home amlodipine 5 mg p.o. daily BP today 147/73 (6) Diabetes mellitus Code(s): E11.9 - Type 2 diabetes mellitus without complications Status: Chronic Plan: Patient with history of diabetes mellitus, for which she takes Januvia. -Hold home Januvia -Placed on sliding scale with frequent accuchecks while in hospital -Hypoglycemia protocol -D5W NS at 110 mls/hr maintenance fluids,while patient is NPO. (Will hold for now, but restart after midnight when pt NPO for stent procedure) (7) Chronic back pain Code(s): M54.9 - Dorsalgia, unspecified; G89.29 - Other chronic pain Status: Chronic Plan: Patient has history of chronic back pain, for which she takes ibuprofen 800 mg 3 times daily. -Hold home ibuprofen due to MIK. Pt has tylenol and norco PRN (8) Nutrition, metabolism, and development symptoms Code(s): R63.8 - Other symptoms and signs concerning food and fluid intake Status: Acute Plan: Fluids: D5W NS at 110 mls/hr. Will hold now, Pt on clear liquids for dinner but NPO after midnight. Electrolytes: No significant electrolyte abnormalities noted at this time. We will continue to monitor and replete as needed. Diet: NPO for now, likely advance to clear liquids today. (9) DVT prophylaxis Status: Acute Plan: DVT prophylaxis: Bilateral SCDs <Ryann Mahan V - 03/05/18 17:09> - Attending Attestation The exam, history, and the medical decision-making described in the above note were completed with the assistance of the resident physician. I reviewed and agree with the findings presented. I attest that I had a [id number] encounter with the patient on the same day, and personally performed and documented my assessment and findings in the medical record. I evaluated patient this afternoon independent of residents. Patient is sitting up in chair with NG tube in place. Continues to have diffuse abdominal pain but without peritoneal signs. Minimal but present bowel sounds. Pass gas but no bowel movement. Plan to dc NG tube, minimal output with suction. Will feed with liquid diet and advance slowly. NPO after midnight for ureteral stents given hydronephrosis. <George Santoro L - 03/05/18 18:45> <Ryann Mahan V - Filed: 03/05/18 17:09> (3) Cervical cancer Qualifiers: Malignant neoplasm of cervix location: unspecified location Qualified Code(s) : C53.9 - Malignant neoplasm of cervix uteri, unspecified <George Santoro - Last Filed: 03/05/18 18:45> (3) Cervical cancer Qualifiers: Malignant neoplasm of cervix location: unspecified location Qualified Code(s) : C53.9 - Malignant neoplasm of cervix uteri, unspecified <Ryann Mahan V - Last Filed: 03/05/18 17:09> (3) Cervical cancer Qualifiers: Malignant neoplasm of cervix location: unspecified location Qualified Code(s) : C53.9 - Malignant neoplasm of cervix uteri, unspecified <George Santoro - Last Filed: 03/05/18 18:45> (3) Cervical cancer Qualifiers: Malignant neoplasm of cervix location: unspecified location Qualified Code(s) : C53.9 - Malignant neoplasm of cervix uteri, unspecified
[2018-03-05 18:47] LABS: Hematocrit 22.6 % (35.0-46.0); Hemoglobin 7.6 gm/dL (11.6-15.3)
[2018-03-05] MEDS: Senna/Docusate Sodium 8.6/50 MG Tablet PO SCH (23:56)
[2018-03-06] MEDS: Morphine Inj 4 MG/ML Vial IV.PUSH PRN (04:22)
[2018-03-06 04:50] LABS: Hematocrit 21.7 % (35.0-46.0); Hemoglobin 7.4 gm/dL (11.6-15.3); Mean Corpuscular Hemoglobin 31.1 pg (27.0-34.0); Mean Corpuscular Volume 91.4 fL (80.0-100.0); Mean Platelet Volume 6.3 fL (7.0-11.0); Platelet Count 198 th/mm3 (150-450); Red Blood Count 2.37 mil/mm3 (4.00-5.30); Red Cell Distribution Width 17.7 % (11.6-17.2)
[2018-03-06 05:21] LABS: Calcium 8.1 mg/dL (8.5-10.1); Carbon Dioxide 21.6 meq/L (21.0-32.0)
[2018-03-06] MEDS ORDERED: Metoprolol Tartrate 25 MG Tablet PO ONE (06:00)
[2018-03-06] MEDS ORDERED: Sodium Chlor 0.9% Inj 500 ML IV.CONT ONE (06:00)
[2018-03-06] MEDS ORDERED: Chlorhexidine Gluconate 2% 1 Pack (2 Cloths) TOPICAL ONE (06:00)
[2018-03-06] MEDS: Insulin NovoLOG Aspart Correctional Sugar Inj SQ SCH ×4 (07:45→17:03)
[2018-03-06] MEDS: Dextrose 5%/NaCl 0.9% Inj 1,000 ML IV.CONT SCH (07:46)
--- NOTE | 2018-03-06 08:31 | P.PN ---
Subjective Interval history: Attempted to see her on morning rounds. She is currently off the gaviria. Physical Exam Vital signs: Vital Signs 03/05/18 09:25 03/05/18 12:00 03/05/18 16:00 Temperature 98.4 F 97.8 F Pulse Rate 85 79 Respiratory Rate 16 16 16 Blood Pressure 112/65 147/73 H Pulse Oximetry 99 99 03/05/18 17:17 03/05/18 20:00 03/06/18 00:00 Temperature 98.2 F Pulse Rate 84 89 Respiratory Rate 16 16 Blood Pressure 155/81 H 106/57 L Pulse Oximetry 99 100 99 03/06/18 02:30 03/06/18 04:00 03/06/18 08:00 Temperature 98.3 F 99.0 F Pulse Rate 85 78 Respiratory Rate 17 18 Blood Pressure 108/60 138/75 Pulse Oximetry 99 97 99 Intake & Output 03/05/18 03/06/18 03/06/18 18:59 06:59 18:59 Intake Total 1600 / 1600 1000 / 1000 Output Total 100 / 100 Balance 1500 / 1500 1000 / 1000 Weight 74 kg Intake: IV 1000 / 1000 1000 / 1000 D5W/Normal Saline Inj 1,000 ML 1000 / 1000 1000 / 1000 @ 110 mls/hr IV.CONT .Q9H6M [facility] Rx#:[id number] Oral 600 / 600 Output: Gastric Drainage 100 / 100 Right Nare 100 / 100 Other: # Voids 4 Date of Last Bowel Movement 03/03/18 # Bowel Movements 0 Results - Labs CBC & Chem 7: 03/06/18 04:20 03/06/18 04:20 Laboratory Results - last 24 hr 03/04/18 03/05/18 03/05/18 10:37 12:23 17:10 WBC RBC Hgb Hct MCV MCH MCHC RDW Plt Count MPV Sodium Potassium Chloride Carbon Dioxide Anion Gap BUN Creatinine Estimated GFR POC Glucose 141 H 153 H Random Glucose Calcium MTS Gel Crossmatch See Detail 03/05/18 03/05/18 03/06/18 17:40 23:53 04:20 WBC RBC Hgb 7.6 L Hct 22.6 L MCV MCH MCHC RDW Plt Count MPV Sodium 140 Potassium 4.0 Chloride 109 H Carbon Dioxide 21.6 Anion Gap 9 BUN 8 Creatinine 1.00 Estimated GFR 68 L POC Glucose 193 H Random Glucose 101 Calcium 8.1 L MTS Gel Crossmatch 03/06/18 03/06/18 04:20 07:33 WBC 5.0 RBC 2.37 L Hgb 7.4 L Hct 21.7 L MCV 91.4 MCH 31.1 MCHC 34.0 RDW 17.7 H Plt Count 198 MPV 6.3 L Sodium Potassium Chloride Carbon Dioxide Anion Gap BUN Creatinine Estimated GFR POC Glucose 124 H Random Glucose Calcium MTS Gel Crossmatch Assessment and Plan - Assessment (1) Cervical cancer Code(s): C53.9 - Malignant neoplasm of cervix uteri, unspecified Status: Chronic - Plan She is seen, findings reviewed, examined and counselled by me in conjunction with ERNESTO Mcclain. I agree with her findings, assessment & plan. KUB with NGT curled in the stomach (possibly into proximal small bowel), no NGT output. Therefore, NGT pulled back 10-12 cm and re-attached to suction. OOB to chair, feels hungry but no flatus or bm. a&o x 3, nad abdomen distended, hypoactive bs, no rebound or guarding Findings reviewed, q&a, she understands. She remains hopeful, but understands the difficult nature of her situation with recurrent, multifocal cervix cancer contributing to her feeling poorly, sbo, bilateral hydronephrosis. She wishes to remain aggressive in her fight against this illness. (1) Cervical cancer Qualifiers: Malignant neoplasm of cervix location: unspecified location Qualified Code(s) : C53.9 - Malignant neoplasm of cervix uteri, unspecified
[2018-03-06] MEDS ORDERED: Phenylephrine/NS 1000 MCG/10ML Syringe IV.PUSH ONE (08:45)
[2018-03-06] MEDS ORDERED: Lidocaine PF 1% Inj 5 ML Syringe OTHER ONE (08:45)
--- NOTE | 2018-03-06 10:28 | P.OP ---
- Preoperative Diagnosis (1) Bilateral hydronephrosis - Postoperative Diagnosis (1) Bilateral hydronephrosis Date of procedure: 03/06/18 Procedure: Cystoscopy, bilateral retrograde pyelogram studies and bilateral mcfp ureteral stent placement. Implants: Bilateral ureteral stents Anesthesia: ODALYS Surgeon: Kory Gallardo MD Estimated blood loss (mL): 0 Pathology: none sent Operation and Findings: Indication for procedures: Case of a pleasant 62-year-old female with bilateral ureteral obstruction and hydronephrosis likely related to her metastatic cervical CA. Patient presents now for cystoscopy, bilateral retrograde pyelogram studies and bilateral ureteral stent placement. Operative procedure in detail: Patient was brought to the operating room suite and placed supine on the cystoscopy table. She was then placed under general anesthesia. She was then repositioned in the dorsolithotomy position and prepped and draped in normal sterile fashion. After an appropriate timeout was undertaken I proceeded with cystoscopic evaluation utilizing the rigid cystoscope with both the 30 and 70 degree lenses. The location of the ureteral orifices were not clearly identified due to distortion of the bladder neck region likely related to her cervical cancer. I gently probed the anticipated site of the left ureteral orifice with a sensor 0.035 wire and eventually was able to identify the left ureteral orifice. The guidewire was advanced up to the left renal pelvis and a 6 [place] open-ended ureteral catheter was advanced over the wire and the wire withdrawn. A retrograde pyelogram study was performed to outline the left side collecting system. The guidewire was reintroduced and the open-ended catheter was exchanged for an [place] 6 [place] 24 cm double-J stent. Once the stent was in proper position the trailing string was removed. In similar fashion the contralateral side was accomplished and I placed a 6 [place] 22 cm [place] stent. The bladder was next drained of all irrigant fluid and cystoscope withdrawn. The patient tolerated the procedures without complications and was transferred to the PACU in satisfactory condition.
[2018-03-06] MEDS ORDERED: fentaNYL Citrate Inj 100 MCG/2 ML Ampul ONE (10:35)
--- NOTE | 2018-03-06 10:40 | P.DIET ---
Nutritional Evaluation Type of nutrition evaluation: initial Nutrition screening: Weight Loss > 10 lbs Subjective Subjective Comments: Poor appetite and wt loss reported. Pt has been npo/liquids only since admission. Objective - Diagnosis Large Bowel Obstruction, Hydronephrosis - Objective % IBW: 121 (IBW = 135#) Body Weight Used for Calculations: Actual (74 kg) Energy Needs - Lower Range (kCal/kg): 25 Energy Needs - Upper Range (kCal/kg): 30 Lower Limit kCal/kg (kCals): 1,850 Upper Limit kCal/kg (kCals): 2,220 Lower Limit Protein Factor (Grams per Kg): 1.0 Upper Limit Protein Factor (Grams per Kg): 1.5 Lower Protein Needs (Protein): 74 Upper Protein Needs (Protein): 111 Fluid Factor (ml/kg): 30 Estimated Fluid Needs (ml): 2,220 Dietitian Reviewed in Medical Record: Current diet, Curent medications, Intake & Output, Labs, Medical history Diet Order: NPO Assessment Assessment: Pt is at high nutrition risk 2' to unintentional weight loss and npo status. She is having a cystoscopy, B retrogade pyelogram and B ureteral stent placement today. Her wt remains wnl of IBW range with a BMI of 25.6. RD will monitor diet advance and assess for the need of supplements. Recommendations: Advance diet as able. RD following Dietitian to Monitor: Lab values, Intake & Output, Weight change, Diet advancement, Medical course
[2018-03-06] MEDS: Potassium Chloride 10 MEQ ER Capsule PO SCH ×2 (11:05→20:15)
[2018-03-06] MEDS: Senna/Docusate Sodium 8.6/50 MG Tablet PO SCH ×2 (11:06→20:15)
[2018-03-06] MEDS: amLODIPine 5 MG Tablet PO SCH (11:06)
[2018-03-06] MEDS ORDERED: PEG 3350/E-Lyte Soln 4000 ML Bottle PO ONE (11:15)
--- NOTE | 2018-03-06 14:14 | P.PNFP ---
Subjective Interval history: Patient was seen and evaluated this morning. 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 Patient denies abdominal pain; she is hungry and would like to eat "real food." She denies chest pain, heart palpitations, shortness of breath, nausea/vomiting , diarrhea and constipation. All questions were answered. <Judi Owen - 03/06/18 16:24> Results - Labs Result diagrams: 03/06/18 04:20 03/06/18 04:20 <George Santoro - 03/06/18 18:49> Abnormal lab results 03/04/18 03/05/18 03/06/18 Range/Units 10:37 23:53 04:20 RBC (4.00-5.30) mil/mm3 Hgb (11.6-15.3) gm/dL Hct (35.0-46.0) % RDW (11.6-17.2) % MPV (7.0-11.0) fL Chloride 109 H (98-107) meq/L Estimated GFR 68 L (>89) mL/min POC Glucose 193 H (68-110) mg/dl Calcium 8.1 L (8.5-10.1) mg/dL MTS Gel Crossmatch See Detail 03/06/18 03/06/18 03/06/18 Range/Units 04:20 07:33 13:19 RBC 2.37 L (4.00-5.30) mil/mm3 Hgb 7.4 L (11.6-15.3) gm/dL Hct 21.7 L (35.0-46.0) % RDW 17.7 H (11.6-17.2) % MPV 6.3 L (7.0-11.0) fL Chloride (98-107) meq/L Estimated GFR (>89) mL/min POC Glucose 124 H 177 H (68-110) mg/dl Calcium (8.5-10.1) mg/dL MTS Gel Crossmatch 03/06/18 Range/Units 16:29 RBC (4.00-5.30) mil/mm3 Hgb (11.6-15.3) gm/dL Hct (35.0-46.0) % RDW (11.6-17.2) % MPV (7.0-11.0) fL Chloride (98-107) meq/L Estimated GFR (>89) mL/min POC Glucose 304 H (68-110) mg/dl Calcium (8.5-10.1) mg/dL MTS Gel Crossmatch Short CBC 03/06/18 Range/Units 04:20 WBC 5.0 (4.0-11.0) th/mm3 Hgb 7.4 L (11.6-15.3) gm/dL Hct 21.7 L (35.0-46.0) % Plt Count 198 (150-450) th/mm3 BMP 03/06/18 04:20 Sodium 140 Potassium 4.0 Chloride 109 H Carbon Dioxide 21.6 BUN 8 Creatinine 1.00 Calcium 8.1 L <Young,George L - 03/06/18 18:49> Abnormal lab results 03/04/18 03/05/18 03/05/18 Range/Units 10:37 17:10 17:40 RBC (4.00-5.30) mil/mm3 Hgb 7.6 L (11.6-15.3) gm/dL Hct 22.6 L (35.0-46.0) % RDW (11.6-17.2) % MPV (7.0-11.0) fL Chloride (98-107) meq/L Estimated GFR (>89) mL/min POC Glucose 153 H (68-110) mg/dl Calcium (8.5-10.1) mg/dL MTS Gel Crossmatch See Detail 03/05/18 03/06/18 03/06/18 Range/Units 23:53 04:20 04:20 RBC 2.37 L (4.00-5.30) mil/mm3 Hgb 7.4 L (11.6-15.3) gm/dL Hct 21.7 L (35.0-46.0) % RDW 17.7 H (11.6-17.2) % MPV 6.3 L (7.0-11.0) fL Chloride 109 H (98-107) meq/L Estimated GFR 68 L (>89) mL/min POC Glucose 193 H (68-110) mg/dl Calcium 8.1 L (8.5-10.1) mg/dL MTS Gel Crossmatch 03/06/18 03/06/18 Range/Units 07:33 13:19 RBC (4.00-5.30) mil/mm3 Hgb (11.6-15.3) gm/dL Hct (35.0-46.0) % RDW (11.6-17.2) % MPV (7.0-11.0) fL Chloride (98-107) meq/L Estimated GFR (>89) mL/min POC Glucose 124 H 177 H (68-110) mg/dl Calcium (8.5-10.1) mg/dL MTS Gel Crossmatch Short CBC 03/05/18 03/06/18 Range/Units 17:40 04:20 WBC 5.0 (4.0-11.0) th/mm3 Hgb 7.6 L 7.4 L (11.6-15.3) gm/dL Hct 22.6 L 21.7 L (35.0-46.0) % Plt Count 198 (150-450) th/mm3 BMP 03/06/18 04:20 Sodium 140 Potassium 4.0 Chloride 109 H Carbon Dioxide 21.6 BUN 8 Creatinine 1.00 Calcium 8.1 L <LabelJudi davies - 03/06/18 14:14> Physical Exam Vital signs: Vital Signs 03/05/18 20:00 03/06/18 00:00 03/06/18 02:30 Temperature 98.2 F Pulse Rate 84 89 Respiratory Rate 16 16 Blood Pressure 155/81 H 106/57 L Pulse Oximetry 100 99 99 03/06/18 04:00 03/06/18 08:00 03/06/18 10:28 Temperature 98.3 F 99.0 F 98.3 F Pulse Rate 85 78 78 Respiratory Rate 17 18 16 Blood Pressure 108/60 138/75 141/74 H Pulse Oximetry 97 99 100 03/06/18 10:30 03/06/18 10:45 03/06/18 11:00 Temperature Pulse Rate 78 78 79 Respiratory Rate 16 13 14 Blood Pressure 140/70 126/74 126/75 Pulse Oximetry 100 99 98 03/06/18 11:10 03/06/18 12:00 03/06/18 16:00 Temperature 98.4 F 98.1 F 98.1 F Pulse Rate 81 91 H 90 Respiratory Rate 15 20 18 Blood Pressure 130/74 162/76 H 115/72 Pulse Oximetry 98 98 96 Intake & Output 03/05/18 03/06/18 03/06/18 18:59 06:59 18:59 Intake Total 1600 / 1600 1000 / 1000 1300 / 1300 Output Total 100 / 100 Balance 1500 / 1500 1000 / 1000 1300 / 1300 Weight 74 kg Intake: IV 1000 / 1000 1000 / 1000 1000 / 1000 D5W/Normal Saline Inj 1,000 ML 1000 / 1000 1000 / 1000 @ 110 mls/hr IV.CONT .Q9H6M SAMANTHA Rx#:[id number] LR 1000 mL Inj 1,000 ML @ 30 1000 / 1000 mls/hr IV.CONT .Q24H ONE Rx#: [id number] Oral 600 / 600 0 / 0 Anesthesia Amount 300 / 300 Output: Gastric Drainage 100 / 100 Right Nare 100 / 100 Other: # Voids 4 1 # Incontinent Voids 1 Date of Last Bowel Movement 03/03/18 # Bowel Movements 0 <George Santoro L - 03/06/18 18:49> Vital Signs 03/05/18 16:00 03/05/18 17:17 03/05/18 20:00 Temperature 97.8 F Pulse Rate 79 84 Respiratory Rate 16 16 Blood Pressure 147/73 H 155/81 H Pulse Oximetry 99 99 100 03/06/18 00:00 03/06/18 02:30 03/06/18 04:00 Temperature 98.2 F 98.3 F Pulse Rate 89 85 Respiratory Rate 16 17 Blood Pressure 106/57 L 108/60 Pulse Oximetry 99 99 97 03/06/18 08:00 03/06/18 10:28 03/06/18 10:30 Temperature 99.0 F 98.3 F Pulse Rate 78 78 78 Respiratory Rate 18 16 16 Blood Pressure 138/75 141/74 H 140/70 Pulse Oximetry 99 100 100 03/06/18 10:45 03/06/18 11:00 03/06/18 11:10 Temperature 98.4 F Pulse Rate 78 79 81 Respiratory Rate 13 14 15 Blood Pressure 126/74 126/75 130/74 Pulse Oximetry 99 98 98 03/06/18 12:00 Temperature 98.1 F Pulse Rate 91 H Respiratory Rate 20 Blood Pressure 162/76 H Pulse Oximetry 98 <Judi Owen - 03/06/18 16:24> Narrative: General: Sitting on side of bed, in no acute distress; flat affect. Skin: No rashes or lesions. HEENT: Normocephalic, no nasal drainage. CV: RRR, no murmurs, rubs, or gallops. Chemotherapy port in right chest wall. Lungs: CTAB. No wheezing, no rhonchi, no rales. Abdomen: Normal bowel sounds in all four quadrants. Tenderness upon palpation across lower abdomen. Ext: No edema or cyanosis. Neuro: Awake, alert. <Judi Owen - 03/06/18 16:24> Assessment and Plan - Assessment (1) Ileus Code(s): K56.7 - Ileus, unspecified Status: Acute (2) Cervical cancer Code(s): C53.9 - Malignant neoplasm of cervix uteri, unspecified Status: Chronic (3) Hydronephrosis Code(s): N13.30 - Unspecified hydronephrosis Status: Chronic (4) Hypertension Code(s): I10 - Essential (primary) hypertension Status: Acute (5) Diabetes mellitus Code(s): E11.9 - Type 2 diabetes mellitus without complications Status: Chronic (6) Chronic back pain Code(s): M54.9 - Dorsalgia, unspecified; G89.29 - Other chronic pain Status: Chronic (7) Nutrition, metabolism, and development symptoms Code(s): R63.8 - Other symptoms and signs concerning food and fluid intake Status: Acute (8) DVT prophylaxis Status: Acute <George Santoro - 03/06/18 18:49> (1) Ileus Code(s): K56.7 - Ileus, unspecified Status: Acute Plan: Patient presenting with abdominal pain for the past month, recently worsening, along with nausea, vomiting, and diarrhea x 4 days. Discussed imaging with radiology, CT w/ dilated colon, increased fecal content; likely ileus, possible mass effect. - Hold home dicyclomine. - GoLyte 2L PO once; 240mL every 10 minutes until entire dose is consumed or the rectal effluent is clear. - Tylenol 650 mg p.o. every 4 hours as needed. - Morrill 5/325 mg p.o cherelle 4 hours as needed. - Morphine 2 mg IV every 3 as needed for breakthrough pain. - Zofran 4 mg IV every 6 as needed for nausea. - Discontinued NG tube 03/05. - Liquid diet; advance diet as tolerated. (2) Cervical cancer Code(s): C53.9 - Malignant neoplasm of cervix uteri, unspecified Status: Chronic Plan: Patient has a history of cervical cancer for which she sees white sourer oncologist, Dr. Marks. Patient underwent surgery a couple of months ago. She is now on chemotherapy and radiation therapy. Large tumor with one node and no metastasis , followed by Dr. Marks. Receiving radiation and chemotherapy. Imaging: -CT abd/pelvis showed: Irregular ill-defined mass left of midline measuring 2.9 x 2.5 cm in AP transverse dimension at the level of the cervix with either necrosis or abnormal fluid and air distending the endocervical region, and endometrial thickening versus fluid distending the endometrial cavity. This is consistent with the patient's known cervical carcinoma. Consult: - Dr. Marks, patient white sou[facility] oncologist. - Appreciate recommendations. (3) Hydronephrosis Code(s): N13.30 - Unspecified hydronephrosis Status: Chronic Plan: Imaging: CT Abd/pelvis showed: Severe left hydronephrosis and mild right hydronephrosis and hydroureter identified. There is decreased enhancement of the left kidney as compared to the right. Labs: -CMP showed: BUN/Cr 16/1.2, with estimated GFR of 55, yesterday improved to BUN 12, Cr 1.12 and GFR 60, today cr 0.99, BUN 10 w/ GFR 69 Consult: - Urology consulted, s/p cystoscopy, bilateral retrograde pyelogram studies and bilateral care home ureteral stent placement. (4) Hypertension Code(s): I10 - Essential (primary) hypertension Status: Acute Plan: Patient with history of hypertension. -Continue home amlodipine 5 mg PO daily. (5) Diabetes mellitus Code(s): E11.9 - Type 2 diabetes mellitus without complications Status: Chronic Plan: Patient with history of diabetes mellitus, for which she takes Januvia. -Hold home Januvia. -Placed on sliding scale. -Hypoglycemia protocol ordered. (6) Chronic back pain Code(s): M54.9 - Dorsalgia, unspecified; G89.29 - Other chronic pain Status: Chronic Plan: Patient has history of chronic back pain, for which she takes ibuprofen 800 mg 3 times daily. -Hold home ibuprofen due to MIK. -Tylenol and Morrill PRN. (7) Nutrition, metabolism, and development symptoms Code(s): R63.8 - Other symptoms and signs concerning food and fluid intake Status: Acute Plan: Fluids: * Tolerating PO. Electrolytes: * Monitor and replete as necessary. Diet: * Liquid diet. Advance as tolerated. (8) DVT prophylaxis Status: Acute Plan: DVT prophylaxis: Bilateral SCDs <Judi wOen - 03/06/18 16:08> - Assessment and Plan Discussed Condition With: Dr. Santoro. <Judi Owen - 03/06/18 16:24> - Attending Attestation The exam, history, and the medical decision-making described in the above note were completed with the assistance of the resident physician. I reviewed and agree with the findings presented. I attest that I had a [id number] encounter with the patient on the same day, and personally performed and documented my assessment and findings in the medical record. I saw and examined the patient alongside the resident. Patient reports no pain this morning. No nausea, vomiting, diarrhea, abdominal pain. Requesting real food. Will continue to advance diet as tolerated, and she will receive GoLytely today in hopes of bowel movement. <George Santoro - 03/06/18 18:49> <Judi Owen - Last Filed: 03/06/18 16:08> (2) Cervical cancer Qualifiers: Malignant neoplasm of cervix location: unspecified location Qualified Code(s) : C53.9 - Malignant neoplasm of cervix uteri, unspecified <George Santoro - Last Filed: 03/06/18 18:49> (2) Cervical cancer Qualifiers: Malignant neoplasm of cervix location: unspecified location Qualified Code(s) : C53.9 - Malignant neoplasm of cervix uteri, unspecified <Judi Owen - Last Filed: 03/06/18 16:08> (2) Cervical cancer Qualifiers: Malignant neoplasm of cervix location: unspecified location Qualified Code(s) : C53.9 - Malignant neoplasm of cervix uteri, unspecified <George Santoro - Last Filed: 03/06/18 18:49> (2) Cervical cancer Qualifiers: Malignant neoplasm of cervix location: unspecified location Qualified Code(s) : C53.9 - Malignant neoplasm of cervix uteri, unspecified
[2018-03-06] MEDS: Acetaminophen 325 MG Tablet PO PRN (20:14)
[2018-03-06 20:55] LABS: Hematocrit 21.9 % (35.0-46.0); Hemoglobin 7.7 gm/dL (11.6-15.3)
[2018-03-07] MEDS: Insulin NovoLOG Aspart Correctional Sugar Inj SQ SCH ×5 (01:26→21:10)
[2018-03-07] MEDS: Acetaminophen 325 MG Tablet PO PRN ×3 (01:34→21:34)
[2018-03-07 06:47] LABS: Hematocrit 22.9 % (35.0-46.0); Hemoglobin 7.7 gm/dL (11.6-15.3); Mean Corpuscular HGB Conc 33.6 % (32.0-36.0); Mean Corpuscular Hemoglobin 30.6 pg (27.0-34.0); Mean Corpuscular Volume 91.1 fL (80.0-100.0); Mean Platelet Volume 6.4 fL (7.0-11.0); Platelet Count 230 th/mm3 (150-450); Red Blood Count 2.51 mil/mm3 (4.00-5.30); Red Cell Distribution Width 17.8 % (11.6-17.2)
[2018-03-07 06:57] LABS: Calcium 8.3 mg/dL (8.5-10.1); Carbon Dioxide 22.8 meq/L (21.0-32.0); Potassium 3.7 meq/L (3.5-5.1)
--- NOTE | 2018-03-07 08:10 | P.PNONC ---
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: patient sitting up in chair c/o pain half-way ureteral stent placement yesterday denies any n/v + BM X 2 NG tube was discontinued yesterday Objective Vital Signs/Intake & Output: Vital Signs 03/06/18 08:00 03/06/18 10:28 03/06/18 10:30 Temperature 99.0 F 98.3 F Pulse Rate 78 78 78 Respiratory Rate 18 16 16 Blood Pressure 138/75 141/74 H 140/70 Pulse Oximetry 99 100 100 03/06/18 10:45 03/06/18 11:00 03/06/18 11:10 Temperature 98.4 F Pulse Rate 78 79 81 Respiratory Rate 13 14 15 Blood Pressure 126/74 126/75 130/74 Pulse Oximetry 99 98 98 03/06/18 12:00 03/06/18 16:00 03/06/18 19:07 Temperature 98.1 F 98.1 F 98.7 F Pulse Rate 91 H 90 90 Respiratory Rate 20 18 18 Blood Pressure 162/76 H 115/72 147/92 H Pulse Oximetry 98 96 96 03/07/18 04:05 Temperature 97.7 F Pulse Rate 85 Respiratory Rate 18 Blood Pressure 144/86 H Pulse Oximetry 97 Intake & Output 03/06/18 03/07/18 03/07/18 18:59 06:59 18:59 Intake Total 1300 / 1300 360 / 360 Balance 1300 / 1300 360 / 360 Weight 74 kg Intake: IV 1000 / 1000 LR 1000 mL Inj 1,000 ML @ 30 1000 / 1000 mls/hr IV.CONT .Q24H ONE Rx#: [id number] Oral 0 / 0 360 / 360 Anesthesia Amount 300 / 300 Other: # Voids 2 4 # Incontinent Voids 1 Date of Last Bowel Movement 03/03/18 03/03/18 # Bowel Movements 2 2 Result Diagrams: 03/07/18 05:05 03/07/18 05:05 Laboratory Results: Laboratory Results - last 24 hr 03/06/18 03/06/18 03/06/18 10:36 13:19 16:29 WBC RBC Hgb Hct MCV MCH MCHC RDW Plt Count MPV Sodium Potassium Chloride Carbon Dioxide Anion Gap BUN Creatinine Estimated GFR POC Glucose 107 177 H 304 H Random Glucose Calcium 03/06/18 03/06/18 03/07/18 20:10 22:47 05:05 WBC 5.0 RBC 2.51 L Hgb 7.7 L 7.7 L Hct 21.9 L 22.9 L MCV 91.1 MCH 30.6 MCHC 33.6 RDW 17.8 H Plt Count 230 MPV 6.4 L Sodium Potassium Chloride Carbon Dioxide Anion Gap BUN Creatinine Estimated GFR POC Glucose 99 Random Glucose Calcium 03/07/18 05:05 WBC RBC Hgb Hct MCV MCH MCHC RDW Plt Count MPV Sodium 138 Potassium 3.7 Chloride 107 Carbon Dioxide 22.8 Anion Gap 8 BUN 9 Creatinine 0.91 Estimated GFR 76 L POC Glucose Random Glucose 85 Calcium 8.3 L Medications: Active Medications Generic Name Dose Route Start Last Admin Trade Name Freq PRN Reason Stop Dose Admin Acetaminophen 650 mg 03/03/18 20:01 03/07/18 01:34 Tylenol PO 650 mg Q4H PRN Administration Pain 1-3 or fever> 100.4F Hydrocodone Bitart/Acetaminophen 1 tab 03/05/18 16:30 03/06/18 17:04 Gallion 5/325 PO 1 tab Q4H PRN Administration PAIN SCALE 6 TO 10 Amlodipine Besylate 5 mg 03/04/18 09:00 03/06/18 11:06 Norvasc PO Not Given DAILY [facility] Insulin Aspart 0 unit 03/03/18 21:00 03/07/18 01:26 Novolog Insulin Correctional Sugar Inj SQ Not Given [facility] Protocol Morphine Sulfate 2 mg 03/03/18 20:45 03/06/18 04:22 Morphine Inj IV.PUSH 2 mg Q3H PRN Administration BREAKTHROUGH PAIN Potassium Chloride 20 meq 03/04/18 09:00 03/06/18 20:15 Kcl PO 20 meq BID SAMANTHA Administration Senna/Docusate Sodium 1 tab 03/05/18 21:00 03/06/18 20:15 Beverly-Colace PO 1 tab BID SAMANTHA Administration Sodium Chloride 2 ml 03/03/18 21:00 03/06/18 20:15 Ns Flush IV.FLUSH 2 ml BID SAMANTHA Administration Sodium Chloride 2 ml 03/03/18 22:46 03/05/18 02:58 Ns Flush IV.FLUSH 2 ml PRN PRN Administration FLUSH AFTER USING IV ACCESS Objective Remarks: GENERAL: Well-nourished, well-developed patient, in NAD SKIN: Warm and dry. HEAD: Normocephalic. EYES: No scleral icterus. No injection or drainage. CARDIOVASCULAR: Regular rate and rhythm without murmurs. RESPIRATORY: Breath sounds equal bilaterally. No accessory muscle use. GASTROINTESTINAL: Abdomen soft, non-tender, mild distended + BS x 4 EXTREMITIES: No cyanosis, or edema. MUSCULOSKELETAL: Adequate muscle tone. NEUROLOGICAL: No obvious focal deficit. Awake, alert, and oriented x3. PSYCHIATRIC: Appropriate mood and affect; insight and judgment normal. Assessment/Plan (1) Cervical cancer Code(s): C53.9 - Malignant neoplasm of cervix uteri, unspecified Status: Chronic - Plan recurrent cervical cancer currently on weekly Taxol chemotherapy on hold d/t bowel obstruction and MIK from hydronephrosis resulting from tumor burden NG tube to LIWS NPO IV hydration and supportive care continue current management, medicine team following and we appreciate assistance and care of this patient if not improvement with medical management may need to consider surgical consult Urology following for MIK stents to be placed d/t hydronephrosis daily labs...creat WNL with rehydration patient on neutropenic precautions ANC, WNL and pt afebrile anemia continue to monitor consider blood transfusion 03/07/18 s/p uretal stent placement yesterday discharge per med team patient will continue on IV chemotherapy as outpt, weekly Taxol anemia most likely secondary to chemotherapy pain control with oral Gallion and IV Morphine (1) Cervical cancer Qualifiers: Malignant neoplasm of cervix location: unspecified location Qualified Code(s) : C53.9 - Malignant neoplasm of cervix uteri, unspecified
[2018-03-07] MEDS: Morphine Inj 4 MG/ML Vial IV.PUSH PRN (08:54)
[2018-03-07] MEDS: Potassium Chloride 10 MEQ ER Capsule PO SCH ×2 (08:55→21:34)
[2018-03-07] MEDS: Senna/Docusate Sodium 8.6/50 MG Tablet PO SCH ×2 (08:55→21:34)
[2018-03-07] MEDS: amLODIPine 5 MG Tablet PO SCH (08:56)
--- NOTE | 2018-03-07 16:32 | XR ---
EXAM DATE: 03/07/2018 12:00 AM EDT AGE/SEX: 62 years / Female INDICATIONS: . Cough. CLINICAL DATA: This is the patient's initial encounter. Patient reports that signs and symptoms have been present for 1 day and indicates a pain score of 0/10. MEDICAL/SURGICAL HISTORY: Carcinoma, cervical. None. [place] [facility] [place] [facility] [place]. . FINDINGS: PA and lateral views of the chest demonstrate a normal-sized cardiac silhouette. A right chest wall I [id number] is present with distal tip in the SVC. Lungs are underinflated. No effusion, consolidati on, or pneumothorax is identified. Bones and soft tissues demonstrate no acute abnormality. CONCLUSION: No acute cardiopulmonary abnormality is identified. The multiple bilateral pulmonary nodules describe d on the prior CT from 12/21/2017 are not appreciated on this examination. Electronically signed by: David Coley MD 03/07/2018 4:30 PM EDT
--- NOTE | 2018-03-07 18:22 | P.PNFP ---
Subjective Interval history: Pt see and evaluated this morning. She states she is having a lot of pain. Her pain is generalized "everywhere" and it just hurts. She cannot describe her pain. She complains of chest pain, and cough since yesterday. She states she is having BM's since taking golytely yesterday. She denies any nausea or vomiting, she denies any shortness of breath. <Ryann Mahan V - 03/07/18 18:21> Results - Labs Result diagrams: 03/08/18 04:55 03/07/18 05:05 <Halie Sánchez R - 03/08/18 15:14> Abnormal lab results 03/07/18 03/07/18 03/08/18 Range/Units 16:49 23:30 04:55 Hgb 7.4 L (11.6-15.3) gm/dL Hct 21.4 L (35.0-46.0) % POC Glucose 159 H 123 H (68-110) mg/dl 03/08/18 03/08/18 Range/Units 08:51 12:41 Hgb (11.6-15.3) gm/dL Hct (35.0-46.0) % POC Glucose 118 H 153 H (68-110) mg/dl Short CBC 03/08/18 Range/Units 04:55 Hgb 7.4 L (11.6-15.3) gm/dL Hct 21.4 L (35.0-46.0) % <Halie Sánchez R - 03/08/18 15:14> Abnormal lab results 03/06/18 03/07/18 03/07/18 Range/Units 20:10 05:05 05:05 RBC 2.51 L (4.00-5.30) mil/mm3 Hgb 7.7 L 7.7 L (11.6-15.3) gm/dL Hct 21.9 L 22.9 L (35.0-46.0) % RDW 17.8 H (11.6-17.2) % MPV 6.4 L (7.0-11.0) fL Estimated GFR 76 L (>89) mL/min POC Glucose (68-110) mg/dl Calcium 8.3 L (8.5-10.1) mg/dL 03/07/18 Range/Units 12:36 RBC (4.00-5.30) mil/mm3 Hgb (11.6-15.3) gm/dL Hct (35.0-46.0) % RDW (11.6-17.2) % MPV (7.0-11.0) fL Estimated GFR (>89) mL/min POC Glucose 130 H (68-110) mg/dl Calcium (8.5-10.1) mg/dL Short CBC 03/06/18 03/07/18 Range/Units 20:10 05:05 WBC 5.0 (4.0-11.0) th/mm3 Hgb 7.7 L 7.7 L (11.6-15.3) gm/dL Hct 21.9 L 22.9 L (35.0-46.0) % Plt Count 230 (150-450) th/mm3 BMP 03/07/18 05:05 Sodium 138 Potassium 3.7 Chloride 107 Carbon Dioxide 22.8 BUN 9 Creatinine 0.91 Calcium 8.3 L <Ryann Mahan V - 03/07/18 18:21> - Imaging Impressions Chest X-Ray 03/07/18 00:00 CONCLUSION: No acute cardiopulmonary abnormality is identified. The multiple bilateral pulmonary nodules described on the prior CT from 12/21/2017 are not appreciated on this examination. <Halie Sánchez - 03/08/18 15:14> Impressions Chest X-Ray 03/07/18 00:00 CONCLUSION: No acute cardiopulmonary abnormality is identified. The multiple bilateral pulmonary nodules described on the prior CT from 12/21/2017 are not appreciated on this examination. <Ryann Mahan V - 03/07/18 18:21> Physical Exam Vital signs: Vital Signs 03/07/18 18:00 03/07/18 20:00 03/08/18 00:00 Temperature 98.9 F 98.4 F 98.6 F Pulse Rate 86 84 88 Respiratory Rate 18 20 16 Blood Pressure 113/70 136/78 147/80 H Pulse Oximetry 97 97 97 03/08/18 04:00 03/08/18 08:00 03/08/18 12:00 Temperature 98 F 98.9 F 98.6 F Pulse Rate 77 89 88 Respiratory Rate 18 20 20 Blood Pressure 131/71 117/69 117/68 Pulse Oximetry 98 98 98 Intake & Output 03/07/18 03/08/18 03/08/18 18:59 06:59 18:59 Intake Total 480 / 480 780 / 780 480 / 480 Output Total 550 / 550 Balance 480 / 480 230 / 230 480 / 480 Weight 71.1 kg Intake: Oral 480 / 480 630 / 630 480 / 480 Other 150 / 150 Output: Urine 550 / 550 Other: # Voids 3 6 Date of Last Bowel Movement 03/07/18 03/07/18 03/07/18 # Bowel Movements 2 2 <Halie Sánchez R - 03/08/18 15:14> Vital Signs 03/06/18 19:07 03/06/18 20:00 03/07/18 04:05 Temperature 98.7 F 97.7 F Pulse Rate 90 87 85 Respiratory Rate 18 18 Blood Pressure 147/92 H 144/86 H Pulse Oximetry 96 97 03/07/18 08:00 Temperature 98.5 F Pulse Rate 82 Respiratory Rate 18 Blood Pressure 128/71 Pulse Oximetry 99 Intake & Output 03/06/18 03/07/18 03/07/18 18:59 06:59 18:59 Intake Total 1300 / 1300 360 / 360 Balance 1300 / 1300 360 / 360 Weight 74 kg Intake: IV 1000 / 1000 LR 1000 mL Inj 1,000 ML @ 30 1000 / 1000 mls/hr IV.CONT .Q24H ONE Rx#: [id number] Oral 0 / 0 360 / 360 Anesthesia Amount 300 / 300 Other: # Voids 2 4 # Incontinent Voids 1 Date of Last Bowel Movement 03/03/18 03/03/18 03/07/18 # Bowel Movements 2 2 <Ryann Mahan V - 03/07/18 18:21> Narrative: General: Sitting on recliner in no acute distress; flat affect. Skin: No rashes or lesions. HEENT: Normocephalic, no nasal drainage. CV: RRR, no murmurs, rubs, or gallops. Chemotherapy port in right chest wall. Lungs: CTAB. No wheezing, no rhonchi, no rales. Abdomen: minimal pain with palpation in all quadrants. Minimal CVS tenderness. Normal bowel sounds in all four quadrants. Ext: No edema or cyanosis. Neuro: Awake, alert. MSK: Reproducible pain upon palpation of rib cage and sternum. <Ryann Mahan V - 03/07/18 18:21> Assessment and Plan - Assessment (1) Ileus Code(s): K56.7 - Ileus, unspecified Status: Resolved (2) Cervical cancer Code(s): C53.9 - Malignant neoplasm of cervix uteri, unspecified Status: Chronic (3) Hydronephrosis Code(s): N13.30 - Unspecified hydronephrosis Status: Chronic (4) Hypertension Code(s): I10 - Essential (primary) hypertension Status: Chronic (5) Diabetes mellitus Code(s): E11.9 - Type 2 diabetes mellitus without complications Status: Chronic (6) Chronic back pain Code(s): M54.9 - Dorsalgia, unspecified; G89.29 - Other chronic pain Status: Chronic (7) Chest pain Code(s): R07.9 - Chest pain, unspecified Status: Resolved (8) Nutrition, metabolism, and development symptoms Code(s): R63.8 - Other symptoms and signs concerning food and fluid intake Status: Acute (9) DVT prophylaxis Status: Acute <Halie Sánchez R - 03/08/18 15:14> (1) Ileus Code(s): K56.7 - Ileus, unspecified Status: Acute Plan: Patient presenting with abdominal pain for the past month, recently worsening, along with nausea, vomiting, and diarrhea x 4 days. Discussed imaging with radiology, CT w/ dilated colon, increased fecal content; likely ileus, possible mass effect. - Hold home dicyclomine. - GoLyte 2L PO yesterday, last BM this morning formed. Will switch to Miralax 17g PO. Pt refusin more goLyte - Tylenol 650 mg p.o. every 4 hours as needed. - Restarted Ibuprofen 800mg po TID (home med) - [place] 5/325 mg p.o cherelle 4 hours as needed. - Discontinued Morphine, with goals to discharge on oral medications - Zofran 4 mg IV every 6 as needed for nausea. - Diabetic diet (2) Cervical cancer Code(s): C53.9 - Malignant neoplasm of cervix uteri, unspecified Status: Chronic Plan: Patient has a history of cervical cancer for which she sees obstetrics and gynecology professor oncologist, Dr. Marks. Patient underwent surgery a couple of months ago. She is now on chemotherapy and radiation therapy. Large tumor with one node and no metastasis , followed by Dr. Marks. Receiving radiation and chemotherapy. Imaging: -CT abd/pelvis showed: Irregular ill-defined mass left of midline measuring 2.9 x 2.5 cm in AP transverse dimension at the level of the cervix with either necrosis or abnormal fluid and air distending the endocervical region, and endometrial thickening versus fluid distending the endometrial cavity. This is consistent with the patient's known cervical carcinoma. Consult: - Dr. Marks, patient obstetrics and gynecology professor oncologist. - Appreciate recommendations. (3) Hydronephrosis Code(s): N13.30 - Unspecified hydronephrosis Status: Chronic Plan: Imaging: CT Abd/pelvis showed: Severe left hydronephrosis and mild right hydronephrosis and hydroureter identified. There is decreased enhancement of the left kidney as compared to the right. Labs: -CMP showed: BUN/Cr 9/0.9, with estimated GFR of 76, improving. Consult: - Urology consulted, DAY 2: s/p cystoscopy, bilateral retrograde pyelogram studies and bilateral chcf ureteral stent placement. (4) Hypertension Code(s): I10 - Essential (primary) hypertension Status: Acute Plan: Patient with history of hypertension. -Continue home amlodipine 5 mg PO daily. (5) Diabetes mellitus Code(s): E11.9 - Type 2 diabetes mellitus without complications Status: Chronic Plan: Patient with history of diabetes mellitus, for which she takes Januvia. -Hold home Januvia. -Placed on sliding scale. BG last 24 hr from 99-304 -Hypoglycemia protocol ordered. (6) Chronic back pain Code(s): M54.9 - Dorsalgia, unspecified; G89.29 - Other chronic pain Status: Chronic Plan: Patient has history of chronic back pain, for which she takes ibuprofen 800 mg 3 times daily. -Resume home ibuprofen due to resolved MIK -Tylenol and [place] PRN. (7) Chest pain Code(s): R07.9 - Chest pain, unspecified Status: Acute Plan: Pain on exam today reproducible with palpation. Pt with new cough since yesterday and LOS of 4 days. Unlikely cardiac cause. - Chest X-Ray: negative for pneumonia or atelectasis. - Will continue to monitor - If muscular in nature, should improve with ibuprofen (8) Nutrition, metabolism, and development symptoms Code(s): R63.8 - Other symptoms and signs concerning food and fluid intake Status: Acute Plan: Fluids: * Tolerating PO. Electrolytes: * Monitor and replete as necessary. Diet: * Diabetic diet (9) DVT prophylaxis Status: Acute Plan: DVT prophylaxis: Bilateral SCDs <Ryann Mahan V - 03/07/18 18:22> - Assessment and Plan Discussed Condition With: Dr. Sánchez and Dr. Hyatt <Ryann Mahan V - 03/07/18 18:21> - Attending Attestation The exam, history, and the medical decision-making described in the above note were completed with the assistance of the resident physician. I reviewed and agree with the findings presented. I attest that I had a [id number] encounter with the patient on the same day, and personally performed and documented my assessment and findings in the medical record. <Halie Sánchez R - 03/08/18 15:14> <Ryann Mahan V - Last Filed: 03/07/18 18:22> (2) Cervical cancer Qualifiers: Malignant neoplasm of cervix location: unspecified location Qualified Code(s) : C53.9 - Malignant neoplasm of cervix uteri, unspecified (7) Chest pain Qualifiers: Chest pain type: intercostal pain Qualified Code(s): R07.82 - Intercostal pain <Halie Sánchez R - Last Filed: 03/08/18 15:14> (2) Cervical cancer Qualifiers: Malignant neoplasm of cervix location: unspecified location Qualified Code(s) : C53.9 - Malignant neoplasm of cervix uteri, unspecified (7) Chest pain Qualifiers: Chest pain type: intercostal pain Qualified Code(s): R07.82 - Intercostal pain <Ryann Mahan V - Last Filed: 03/07/18 18:22> (2) Cervical cancer Qualifiers: Malignant neoplasm of cervix location: unspecified location Qualified Code(s) : C53.9 - Malignant neoplasm of cervix uteri, unspecified (7) Chest pain Qualifiers: Chest pain type: intercostal pain Qualified Code(s): R07.82 - Intercostal pain <Halie Sánchez R - Last Filed: 03/08/18 15:14> (2) Cervical cancer Qualifiers: Malignant neoplasm of cervix location: unspecified location Qualified Code(s) : C53.9 - Malignant neoplasm of cervix uteri, unspecified (7) Chest pain Qualifiers: Chest pain type: intercostal pain Qualified Code(s): R07.82 - Intercostal pain
[2018-03-07] MEDS: Polyethylene Glycol 3350 17 GM Packet PO SCH (21:13)
[2018-03-08 05:32] LABS: Hematocrit 21.4 % (35.0-46.0); Hemoglobin 7.4 gm/dL (11.6-15.3)
[2018-03-08 07:11] VITALS: O2SAT 98
[2018-03-08] MEDS: Insulin NovoLOG Aspart Correctional Sugar Inj SQ SCH ×2 (08:52→12:49)
[2018-03-08] MEDS: Senna/Docusate Sodium 8.6/50 MG Tablet PO SCH (08:57)
[2018-03-08] MEDS: amLODIPine 5 MG Tablet PO SCH (08:58)
[2018-03-08] MEDS: Potassium Chloride 10 MEQ ER Capsule PO SCH (08:58)
[2018-03-08 09:36] VITALS: RESP 20
--- NOTE | 2018-03-08 12:06 | P.PNFP ---
Subjective Interval history: Patient was seen and evaluated this morning. She is s/p cystoscopy, bilateral retrograde pyelogram studies and bilateral waterm[place] inspector ureteral stent placement. Patient reports continued abdominal and back pain. She denies chest pain, heart palpitations, shortness of breath, nausea and vomiting. She had one BM this morning; BM was liquidly. Patient is frustrated and feels lied to with regard to her cancer management. All questions were answered. <Judi Owen - 03/08/18 14:11> Results - Labs Result diagrams: 03/08/18 04:55 03/07/18 05:05 <Halie Reynolds R - 03/08/18 15:25> Abnormal lab results 03/07/18 03/07/18 03/08/18 Range/Units 16:49 23:30 04:55 Hgb 7.4 L (11.6-15.3) gm/dL Hct 21.4 L (35.0-46.0) % POC Glucose 159 H 123 H (68-110) mg/dl 03/08/18 03/08/18 Range/Units 08:51 12:41 Hgb (11.6-15.3) gm/dL Hct (35.0-46.0) % POC Glucose 118 H 153 H (68-110) mg/dl Short CBC 03/08/18 Range/Units 04:55 Hgb 7.4 L (11.6-15.3) gm/dL Hct 21.4 L (35.0-46.0) % <Halie Reynolds R - 03/08/18 15:25> Abnormal lab results 03/07/18 03/07/18 03/07/18 Range/Units 12:36 16:49 23:30 Hgb (11.6-15.3) gm/dL Hct (35.0-46.0) % POC Glucose 130 H 159 H 123 H (68-110) mg/dl 03/08/18 03/08/18 Range/Units 04:55 08:51 Hgb 7.4 L (11.6-15.3) gm/dL Hct 21.4 L (35.0-46.0) % POC Glucose 118 H (68-110) mg/dl Short CBC 03/08/18 Range/Units 04:55 Hgb 7.4 L (11.6-15.3) gm/dL Hct 21.4 L (35.0-46.0) % <Judi Owen - 03/08/18 14:11> - Imaging Impressions Chest X-Ray 03/07/18 00:00 CONCLUSION: No acute cardiopulmonary abnormality is identified. The multiple bilateral pulmonary nodules described on the prior CT from 12/21/2017 are not appreciated on this examination. <Halie Reynolds - 03/08/18 15:25> Impressions Chest X-Ray 03/07/18 00:00 CONCLUSION: No acute cardiopulmonary abnormality is identified. The multiple bilateral pulmonary nodules described on the prior CT from 12/21/2017 are not appreciated on this examination. <Bry Owenin - 03/08/18 12:06> Physical Exam Vital signs: Vital Signs 03/07/18 18:00 03/07/18 20:00 03/08/18 00:00 Temperature 98.9 F 98.4 F 98.6 F Pulse Rate 86 84 88 Respiratory Rate 18 20 16 Blood Pressure 113/70 136/78 147/80 H Pulse Oximetry 97 97 97 03/08/18 04:00 03/08/18 08:00 03/08/18 12:00 Temperature 98 F 98.9 F 98.6 F Pulse Rate 77 89 88 Respiratory Rate 18 20 20 Blood Pressure 131/71 117/69 117/68 Pulse Oximetry 98 98 98 Intake & Output 03/07/18 03/08/18 03/08/18 18:59 06:59 18:59 Intake Total 480 / 480 780 / 780 480 / 480 Output Total 550 / 550 Balance 480 / 480 230 / 230 480 / 480 Weight 71.1 kg Intake: Oral 480 / 480 630 / 630 480 / 480 Other 150 / 150 Output: Urine 550 / 550 Other: # Voids 3 6 Date of Last Bowel Movement 03/07/18 03/07/18 03/07/18 # Bowel Movements 2 2 <Halie Reynolds - 03/08/18 15:25> Vital Signs 03/07/18 18:00 03/07/18 20:00 03/08/18 00:00 Temperature 98.9 F 98.4 F 98.6 F Pulse Rate 86 84 88 Respiratory Rate 18 20 16 Blood Pressure 113/70 136/78 147/80 H Pulse Oximetry 97 97 97 03/08/18 04:00 03/08/18 08:00 Temperature 98 F 98.9 F Pulse Rate 77 89 Respiratory Rate 18 20 Blood Pressure 131/71 117/69 Pulse Oximetry 98 98 Intake & Output 03/07/18 03/08/18 03/08/18 18:59 06:59 18:59 Intake Total 480 / 480 780 / 780 Output Total 550 / 550 Balance 480 / 480 230 / 230 Weight 71.1 kg Intake: Oral 480 / 480 630 / 630 Other 150 / 150 Output: Urine 550 / 550 Other: # Voids 3 6 Date of Last Bowel Movement 03/07/18 03/07/18 # Bowel Movements 2 <Judi Owen - 03/08/18 12:06> Narrative: General: Sitting in chair, in no acute distress; flat affect. Skin: No rashes or lesions. HEENT: Normocephalic, no nasal drainage. CV: RRR, no murmurs, rubs, or gallops. Chemotherapy port in right chest wall. Lungs: CTAB. No wheezing, no rhonchi, no rales. Abdomen: Normal bowel sounds in all four quadrants. Tenderness upon palpation across lower abdomen. Ext: No edema or cyanosis. Neuro: Awake, alert. <Judi Owen - 03/08/18 14:11> Assessment and Plan - Assessment (1) Ileus Code(s): K56.7 - Ileus, unspecified Status: Resolved (2) Cervical cancer Code(s): C53.9 - Malignant neoplasm of cervix uteri, unspecified Status: Chronic (3) Hydronephrosis Code(s): N13.30 - Unspecified hydronephrosis Status: Chronic (4) Hypertension Code(s): I10 - Essential (primary) hypertension Status: Chronic (5) Diabetes mellitus Code(s): E11.9 - Type 2 diabetes mellitus without complications Status: Chronic (6) Chronic back pain Code(s): M54.9 - Dorsalgia, unspecified; G89.29 - Other chronic pain Status: Chronic (7) Chest pain Code(s): R07.9 - Chest pain, unspecified Status: Resolved (8) Nutrition, metabolism, and development symptoms Code(s): R63.8 - Other symptoms and signs concerning food and fluid intake Status: Acute (9) DVT prophylaxis Status: Acute <Halie Reynolds R - 03/08/18 15:25> (1) Ileus Code(s): K56.7 - Ileus, unspecified Status: Resolved Plan: Patient presenting with abdominal pain for the past month, recently worsening, along with nausea, vomiting, and diarrhea x 4 days. Discussed imaging with radiology, CT w/ dilated colon, increased fecal content; likely ileus, possible mass effect. Normal bowel sounds. Multiple BMs; BM liquidly this morning. Hold home dicyclomine. Miralax 17g PO. Zofran 4 mg IV q6hr PRN nausea. Restarted home ibuprofen 800mg po TID. Tylenol 650 mg PO q4hr PRN Pain. [place] 5/325 mg PO q4hr PRN Pain. (2) Cervical cancer Code(s): C53.9 - Malignant neoplasm of cervix uteri, unspecified Status: Chronic Plan: Patient has a history of cervical cancer for which she sees ob/gyn oncologist, Dr. Marks. Patient underwent surgery a couple of months ago. She is now on chemotherapy and radiation therapy. Large tumor with one node and no metastasis , followed by Dr. Marks. Receiving radiation and chemotherapy. Cervical cancer/tumor burden likely causing continued abdominal and back pain. Imaging: -CT abd/pelvis showed: Irregular ill-defined mass left of midline measuring 2.9 x 2.5 cm in AP transverse dimension at the level of the cervix with either necrosis or abnormal fluid and air distending the endocervical region, and endometrial thickening versus fluid distending the endometrial cavity. This is consistent with the patient's known cervical carcinoma. Consult: - Dr. Marks, patient ob/gyn oncologist. Continue outpatient therapy. (3) Hydronephrosis Code(s): N13.30 - Unspecified hydronephrosis Status: Chronic Plan: Imaging: -CT Abd/pelvis showed: Severe left hydronephrosis and mild right hydronephrosis and hydroureter identified. There is decreased enhancement of the left kidney as compared to the right. Labs: -CMP showed: BUN/Cr 9/0.9, with estimated GFR of 76, improving. Consult: - Urology consulted, s/p cystoscopy, bilateral retrograde pyelogram studies and bilateral chcf ureteral stent placement. (4) Hypertension Code(s): I10 - Essential (primary) hypertension Status: Chronic Plan: Patient with history of hypertension. -Continue home amlodipine 5 mg PO daily. (5) Diabetes mellitus Code(s): E11.9 - Type 2 diabetes mellitus without complications Status: Chronic Plan: Patient with history of diabetes mellitus, for which she takes Januvia. -Hold home Januvia. -Placed on sliding scale. -Hypoglycemia protocol ordered. (6) Chronic back pain Code(s): M54.9 - Dorsalgia, unspecified; G89.29 - Other chronic pain Status: Chronic Plan: Patient has history of chronic back pain, for which she takes ibuprofen 800 mg PO TID. -Resume home ibuprofen due to resolved MIK. -Tylenol and [place] PRN. (7) Chest pain Code(s): R07.9 - Chest pain, unspecified Status: Resolved Plan: Pain on exam 03/07, reproducible with palpation. Resolved as of 03/08. - Chest X-Ray: negative for pneumonia or atelectasis. (8) Nutrition, metabolism, and development symptoms Code(s): R63.8 - Other symptoms and signs concerning food and fluid intake Status: Acute Plan: Fluids: * Tolerating PO. Electrolytes: * Monitor and replete as necessary. Diet: * Diabetic diet. (9) DVT prophylaxis Status: Acute Plan: DVT prophylaxis: Bilateral SCDs. <Judi Owen - 03/08/18 13:54> - Assessment and Plan Discussed Condition With: Carmina Haile, and Ramesh. <Judi Owen - 03/08/18 14:11> - Attending Attestation The exam, history, and the medical decision-making described in the above note were completed with the assistance of the resident physician. I reviewed and agree with the findings presented. I attest that I had a [id number] encounter with the patient on the same day, and personally performed and documented my assessment and findings in the medical record. <Halie Reynolds - 03/08/18 15:25> <Judi Owen - Last Filed: 03/08/18 13:54> (2) Cervical cancer Qualifiers: Malignant neoplasm of cervix location: unspecified location Qualified Code(s) : C53.9 - Malignant neoplasm of cervix uteri, unspecified (7) Chest pain Qualifiers: Chest pain type: intercostal pain Qualified Code(s): R07.82 - Intercostal pain <Halie Reynolds R - Last Filed: 03/08/18 15:25> (2) Cervical cancer Qualifiers: Malignant neoplasm of cervix location: unspecified location Qualified Code(s) : C53.9 - Malignant neoplasm of cervix uteri, unspecified (7) Chest pain Qualifiers: Chest pain type: intercostal pain Qualified Code(s): R07.82 - Intercostal pain <Judi Owen - Last Filed: 03/08/18 13:54> (2) Cervical cancer Qualifiers: Malignant neoplasm of cervix location: unspecified location Qualified Code(s) : C53.9 - Malignant neoplasm of cervix uteri, unspecified (7) Chest pain Qualifiers: Chest pain type: intercostal pain Qualified Code(s): R07.82 - Intercostal pain <Halie Reynolds R - Last Filed: 03/08/18 15:25> (2) Cervical cancer Qualifiers: Malignant neoplasm of cervix location: unspecified location Qualified Code(s) : C53.9 - Malignant neoplasm of cervix uteri, unspecified (7) Chest pain Qualifiers: Chest pain type: intercostal pain Qualified Code(s): R07.82 - Intercostal pain
[2018-03-08 12:13] VITALS: BP 117/68; PULSE 88; TEMP 98.6
[2018-03-08] MEDS: Polyethylene Glycol 3350 17 GM Packet PO SCH (12:27)
[2018-03-08] MEDS ORDERED: Heparin Central Flush 100 UNIT/ML 5 ML Vial IV.FLUSH SCH (14:00)
--- NOTE | 2018-03-09 10:08 | MB ---
cc: Anai Marks MD DATE: 03/08/2018 DISCUSSION: I had the opportunity to visit with Morgan Salmeron. She asked some questions with global issues regarding her overall prognosis, the likelihood of response to treatment, forthcoming anticipated problems, all related to her underlying cancer. I commended her for her steadfast fight against the underlying cancer. I explained that with the initial cancer that was metastatic and now recurrent, that the set of circumstances is quite difficult. I explained that problems such as the partial small bowel obstruction and ureteral obstruction, as well as her pain, were either directly or indirectly related to her underlying malignancy. The urologic procedure was to help alleviate obstruction to the ureters and maintain kidney function, as she has stated on multiple occasions that she was in favor remaining aggressive with anticancer treatment. I am pleased that the nasogastric tube is out. She has had return of bowel function, and at this time the partial small bowel obstruction seems resolved. I explained that it is impossible to provide an estimate of time until this problem becomes irreversible and will potentially result in . I explained that we see a whole spectrum where there are exceptions and cancers can sometimes respond much better to treatment than anticipated, and there are other times when cancer is resistant to treatment despite all efforts. I reconfirmed that she remains steadfast in her hope to stay aggressive and treat this cancer. We will continue to honor that and do what is possible, but if the time comes where she makes a decision in favor of palliative care hospice or that we collectively feel there is no likelihood of any additional beneficial response, we will support that decision and help her in any way possible. Discussion ensued. Questions were asked and answered. She is grateful for the care provided. MD JADYN Hoyt/liv , 08:15 AM , 08:22 AM
== END 2018-03-08 15:08 | disposition home or self-care (01) ==
LOC: NEPE 14:13 → NEDA 19:20 → N06 21:37
PROVIDERS: ADMIT Family Medicine; ATTEND Family Medicine

== ENCOUNTER 2018-03-16 11:36 | Inpatient (IN) ==
[2018-03-16] MEDS ORDERED: Sod Chloride 0.9% Inj 1,000 ML IV.SIG ONE ×2 (12:01→13:58)
--- NOTE | 2018-03-16 12:36 | ED ---
HPI General Chief complaint: Recheck/Abnormal Lab/Rx Stated complaint: weakness/side pain/cancer pt Time Seen by Provider: 03/16/18 11:48 Source: patient, RN notes reviewed and old records reviewed Limitations: no limitations History of Present Illness HPI Narrative: 62-year-old female presents to the emergency department sent by oncology for hypotension. The patient complains of left-sided abdominal pain, black and tarry stools, generalized weakness and lethargy that started yesterday. Patient is currently being treated for persistent metastatic cervical cancer with weekly chemotherapy, Taxol IV, she was recently hospitalized for partial small bowel obstruction which resolved with medical management. She was also found to have hydronephrosis at that time and a nephrostomy stent was placed. Patient was seen by [facility] [employer] for Dr. Marks yesterday and was found to be hypotensive at that time. The patient complains of 10/10 left-sided abdominal pain. She states that she has had black and tarry stools that started yesterday. She denies any history of GI bleed. While in the office yesterday, she was noted be hypotensive with a blood pressure 81/53. The patient denies any chest pain or shortness of breath. She denies any fevers or chills. Upon further questioning, she does admit to taking 800 of ibuprofen every 4 hours for pain. She is not on anticoagulants. She denies any history of CHF. Moderate severity. MD complaint: Reports melena Onset (ago): day(s) (1) Pain Consistency: constant Severity: moderate Relieving factors: none Exacerbating factors: none Context: Reports other (NSAIDS) Associated symptoms: Reports abdominal pain, nausea, vomiting (x1) and weakness Related Data Home Medications Medication Instructions Recorded Confirmed amlodipine [Norvasc] 5 mg PO DAILY 03/03/18 03/16/18 dicyclomine 20 mg PO QID 03/03/18 03/16/18 ibuprofen 800 mg PO TID 03/03/18 03/16/18 metoclopramide HCl [Reglan] 10 mg PO TID 03/03/18 03/16/18 ondansetron HCl [Zofran] 8 mg PO TID PRN 03/03/18 03/16/18 potassium chloride 20 meq PO BID 03/03/18 03/16/18 sitagliptin [Januvia] 100 mg PO DAILY 03/03/18 03/16/18 Previous Rx's Medication Instructions Recorded hydrocodone-acetaminophen 1 tab PO Q4H PRN #18 tab 03/08/18 sennosides-docusate sodium [Senna 1 tab PO BID #60 tab 03/08/18 Plus] Allergies Allergy/AdvReac Type Severity Reaction Status Date / Time No Known Allergies Allergy Verified 03/03/18 15:28 Review of Systems ROS: all other systems reviewed are negative PMFSH Social History Social History Substance History: No History of Abuse Second Hand Smoke Exposure: No Smoking Status: Former smoker Tobacco Type: Cigarettes How Often Do You Have a Drink Containing Alcohol: Never Recent Travel in [facility] within the Last 8 Weeks: No Recent Out of Country Travel within the Last 8 Weeks: No Exam Narrative Exam Narrative: GENERAL: Well-nourished, well-developed female patient, afebrile SKIN: Focused skin assessment warm/dry. HEAD: Normocephalic. Atraumatic EYES: No scleral icterus. No injection or drainage. NECK: Supple, trachea midline. No JVD or lymphadenopathy. CARDIOVASCULAR: Regular rate and rhythm without murmurs, gallops, or rubs. RESPIRATORY: Breath sounds equal bilaterally. No accessory muscle use. Lung sounds are clear to auscultation GASTROINTESTINAL: Abdomen soft, non-tender, nondistended. MUSCULOSKELETAL: No cyanosis, or edema. BACK: Nontender without obvious deformity. No CVA tenderness. RECTAL EXAM: No masses or tenderness, stool is black, Hemoccult positive. This exam was done with RN at bedside. Course Initial Documented Vital Signs Temperature 98.4 F 03/16/18 11:39 Pulse Rate 115 H 03/16/18 11:39 Respiratory Rate 22 03/16/18 11:39 Blood Pressure 91/56 L 03/16/18 11:39 Pulse Oximetry 100 03/16/18 11:39 Last Documented Vital Signs Temperature 97.7 F 03/16/18 17:07 Pulse Rate 113 H 03/16/18 17:07 Respiratory Rate 18 03/16/18 17:07 Blood Pressure 90/53 L 03/16/18 17:07 Pulse Oximetry 100 03/16/18 16:40 Critical Care Time Critical Care Time: Yes Total Critical Care Time: 30 Attestation: Aggregate critical care time was 30 minutes. Time to perform other separately billable procedures was not included in the critical care time. My time did not include minutes spent treating any other patients simultaneously or on activities that did not directly contribute to the patient's treatment. The services I provided to this patient were to treat and/or prevent clinically significant deterioration that could result in: Permanent disability and or I provided critical care services requiring my management, as noted below: Chart data review, documentation time, medication orders and management, vital sign assessments/reviewing monitor data, ordering and reviewing lab tests, ordering and interpreting/reviewing x-rays and diagnostic studies, care of the patient and discussion of the patient with the admitting physicians. Medical Decision Making MELISSA Attestation MELISSA supervised visit: Yes Attestation: I, Dr. Go, have reviewed the advance practice practitioner' s documentation and am in agreement, met with the patient face to face, made the diagnosis, and the medical decision making was done by me. *My assessment and Findings: Tenderness palpation over the lower abdomen. Hypotension. Blood due to hypotension we decided to use the port for use of pressors. Ordered Rojelio-Synephrine due to elevated heart rate patient will be admitted to the ICU ICU attending at bedside during assessment. MDM Narrative Medical decision making narrative: 62-year-old female presents to the emergency department sent by her chemotherapy doctor for hypotension, abdominal pain, black and tarry stools, weakness. IV access obtained. EKG, CBC, CMP, lipase, magnesium, troponin, PTT, PT/INR, UA, type and screen are ordered and pending. CT abdomen/pelvis with IV contrast is ordered and pending. Patient is given normal saline 1 L IV bolus, Zofran 4 mg IV. Patient is given Protonix 40 mg IV. EKG shows sinus rhythm, heart rate 97, no acute ST changes. CBC shows leukocytosis 11.6, hemoglobin 6.0, hematocrit 17.9. CMP shows BUN 66, creatinine 2.10, hyperkalemia 6.1, hyperglycemia 168. Lipase is 25. Magnesium is 1.5. Troponin is less than 0.02. PTT is 33.9. PT/INR is 11.3/1.1. UA shows moderate leukocyte esterase, 46 WBC, many bacteria. CT abdomen/pelvis shows Bilateral internal ureteral stents have been placed. There is some interval improvement of the bilateral hydronephrosis compared to 03/03/2018 but mild hydronephrosis is still noted bilaterally. The proximal loop of the right internal ureteral stent is located within the proximal ureter. The left internal ureteral stent appears to be more optimal in position with its proximal loop in the pelvicalyceal system. 2. Evidence of a fluid and air collection within the left hemipelvis which is unchanged in appearance compared to the previous examination and measures 6.0 x 4.1 cm. 3. The uterus is enlarged and extends into the left hemipelvis but is stable compared to the previous examination. 4. Stable left periaortic retroperitoneal lymphadenopathy. 5. Stable left pulmonary nodule measuring 8 mm. 6. Coronary artery calcifications are noted. 7. Degenerative changes and scoliosis of the thoracolumbar spine are noted. Patient is given second liter normal saline IV bolus. 3 units PRBCs are ordered and pending. Patient is given Rocephin 1 g IV for UTI. I spoke to Dr. Soares at 1515 who states he will come and see the patient and possibly do scope today. Licensed Optical Dispenser accepted admission. Medical Screen Exam Complete: Yes Emergency Medical Condition: Yes Differential Diagnosis Differential Diagnosis: lower GI bleed vs. upper GI bleed vs. anemia vs. electrolyte abnormality vs. dehydration Medical Records Medical records reviewed: Yes I reviewed the patient's medical records. Lab Data Result diagrams: 03/16/18 12:25 03/16/18 12:25 Lab Results 03/16/18 03/16/18 03/16/18 Range/Units 12:23 12:25 12:25 WBC 11.6 H (4.0-11.0) th/mm3 RBC 1.95 L (4.00-5.30) mil/mm3 Hgb 6.0 L* (11.6-15.3) gm/dL Hct 17.9 L* (35.0-46.0) % MCV 91.5 (80.0-100.0) fL MCH 30.5 (27.0-34.0) pg MCHC 33.3 (32.0-36.0) % RDW 17.8 H (11.6-17.2) % Plt Count 262 (150-450) th/mm3 MPV 6.2 L (7.0-11.0) fL Prelim Diff (Auto) Slide review pending Neut % (Auto) 89.2 H (16.0-70.0) % Lymph % (Auto) 5.3 L (9.0-44.0) % [place] % (Auto) 5.3 (0.0-8.0) % Eos % (Auto) 0.1 (0.0-4.0) % Baso % (Auto) 0.1 (0.0-2.0) % Neut # (Auto) 10.3 H (1.8-7.7) th/mm3 Lymph # (Auto) 0.6 L (1.0-4.8) th/mm3 [place] # (Auto) 0.6 (0.0-0.9) th/mm3 Eos # (Auto) 0.0 (0.0-0.4) th/mm3 Baso # (Auto) 0.0 (0.0-0.2) th/mm3 WBC Differential . Diff Scan Auto diff confirmed Differential Comment . PT (9.8-11.6) sec INR Ratio APTT (24.3-30.1) sec Sodium (136-145) meq/L Potassium (3.5-5.1) meq/L Chloride (98-107) meq/L Carbon Dioxide (21.0-32.0) meq/L Anion Gap (5-15) meq/L BUN (7-18) mg/dL Creatinine (0.50-1.00) mg/dL Estimated GFR (>89) mL/min POC Glucose 170 H (68-110) mg/dl Random Glucose (74-106) mg/dL Calcium (8.5-10.1) mg/dL Magnesium Cancelled Total Bilirubin (0.2-1.0) mg/dL AST (15-37) U/L ALT (10-53) U/L Alkaline Phosphatase (45-117) U/L Troponin I Cancelled Total Protein (6.4-8.2) g/dL Albumin (3.4-5.0) g/dL Lipase Cancelled Urine Color (Yellw/Straw) Urine Clarity (Clear) Urine pH (5.0-8.5) Ur Specific [place] (1.002-1.035) Urine Protein (Neg-Trace) mg/dL Urine Glucose (UA) (Negative) mg/dL Urine Ketones (Negative) mg/dL Urine Occult Blood (Negative) Urine Nitrate (Negative) Urine Bilirubin (Negative) Urine Urobilinogen (Less than 2) mg/dL Ur Leukocyte Esterase (Negative) Urine RBC (0-3) /hpf Urine WBC (0-5) /hpf Urine WBC Clumps (None) Urine Bacteria (None) /hpf Micro UA Comment Ur Microscopic Review Urine Culture Comments MTS Gel Crossmatch Bld Prod Order Comment 03/16/18 03/16/18 03/16/18 Range/Units 12:25 12:25 12:30 WBC (4.0-11.0) th/mm3 RBC (4.00-5.30) mil/mm3 Hgb (11.6-15.3) gm/dL Hct (35.0-46.0) % MCV (80.0-100.0) fL MCH (27.0-34.0) pg MCHC (32.0-36.0) % RDW (11.6-17.2) % Plt Count (150-450) th/mm3 MPV (7.0-11.0) fL Prelim Diff (Auto) Neut % (Auto) (16.0-70.0) % Lymph % (Auto) (9.0-44.0) % [place]eman % (Auto) (0.0-8.0) % Eos % (Auto) (0.0-4.0) % Baso % (Auto) (0.0-2.0) % Neut # (Auto) (1.8-7.7) th/mm3 Lymph # (Auto) (1.0-4.8) th/mm3 [place] # (Auto) (0.0-0.9) th/mm3 Eos # (Auto) (0.0-0.4) th/mm3 Baso # (Auto) (0.0-0.2) th/mm3 WBC Differential Diff Scan Differential Comment PT 11.3 (9.8-11.6) sec INR 1.1 Ratio APTT 33.9 H (24.3-30.1) sec Sodium 135 L (136-145) meq/L Potassium 6.1 H D (3.5-5.1) meq/L Chloride 106 (98-107) meq/L Carbon Dioxide 16.3 L (21.0-32.0) meq/L Anion Gap 13 (5-15) meq/L BUN 66 H (7-18) mg/dL Creatinine 2.12 H (0.50-1.00) mg/dL Estimated GFR 29 L (>89) mL/min POC Glucose (68-110) mg/dl Random Glucose 168 H (74-106) mg/dL Calcium 7.6 L D (8.5-10.1) mg/dL Magnesium 1.5 Total Bilirubin 0.3 (0.2-1.0) mg/dL AST 11 L (15-37) U/L ALT 14 (10-53) U/L Alkaline Phosphatase 127 H (45-117) U/L Troponin I Less than 0.02 L Total Protein 6.3 L (6.4-8.2) g/dL Albumin 2.1 L (3.4-5.0) g/dL Lipase 25 L Urine Color Yellow (Yellw/Straw) Urine Clarity Hazy H (Clear) Urine pH 5.0 (5.0-8.5) Ur Specific [place] 1.012 (1.002-1.035) Urine Protein 30 H (Neg-Trace) mg/dL Urine Glucose (UA) Negative (Negative) mg/dL Urine Ketones Negative (Negative) mg/dL Urine Occult Blood Small H (Negative) Urine Nitrate Negative (Negative) Urine Bilirubin Negative (Negative) Urine Urobilinogen Less than 2 (Less than 2) mg/dL Ur Leukocyte Esterase Moderate H (Negative) Urine RBC 3 (0-3) /hpf Urine WBC 46 H (0-5) /hpf Urine WBC Clumps Moderate H (None) Urine Bacteria Many H (None) /hpf Micro UA Comment Cath-culture ind Ur Microscopic Review Not Reportable Urine Culture Comments Cath-cult indicated MTS Gel Crossmatch Bld Prod Order Comment 03/16/18 03/16/18 Range/Units 12:59 13:58 WBC (4.0-11.0) th/mm3 RBC (4.00-5.30) mil/mm3 Hgb (11.6-15.3) gm/dL Hct (35.0-46.0) % MCV (80.0-100.0) fL MCH (27.0-34.0) pg MCHC (32.0-36.0) % RDW (11.6-17.2) % Plt Count (150-450) th/mm3 MPV (7.0-11.0) fL Prelim Diff (Auto) Neut % (Auto) (16.0-70.0) % Lymph % (Auto) (9.0-44.0) % [place] % (Auto) (0.0-8.0) % Eos % (Auto) (0.0-4.0) % Baso % (Auto) (0.0-2.0) % Neut # (Auto) (1.8-7.7) th/mm3 Lymph # (Auto) (1.0-4.8) th/mm3 [place] # (Auto) (0.0-0.9) th/mm3 Eos # (Auto) (0.0-0.4) th/mm3 Baso # (Auto) (0.0-0.2) th/mm3 WBC Differential Diff Scan Differential Comment PT (9.8-11.6) sec INR Ratio APTT (24.3-30.1) sec Sodium (136-145) meq/L Potassium (3.5-5.1) meq/L Chloride (98-107) meq/L Carbon Dioxide (21.0-32.0) meq/L Anion Gap (5-15) meq/L BUN (7-18) mg/dL Creatinine (0.50-1.00) mg/dL Estimated GFR (>89) mL/min POC Glucose (68-110) mg/dl Random Glucose (74-106) mg/dL Calcium (8.5-10.1) mg/dL Magnesium Total Bilirubin (0.2-1.0) mg/dL AST (15-37) U/L ALT (10-53) U/L Alkaline Phosphatase (45-117) U/L Troponin I Total Protein (6.4-8.2) g/dL Albumin (3.4-5.0) g/dL Lipase Urine Color (Yellw/Straw) Urine Clarity (Clear) Urine pH (5.0-8.5) Ur Specific [place] (1.002-1.035) Urine Protein (Neg-Trace) mg/dL Urine Glucose (UA) (Negative) mg/dL Urine Ketones (Negative) mg/dL Urine Occult Blood (Negative) Urine Nitrate (Negative) Urine Bilirubin (Negative) Urine Urobilinogen (Less than 2) mg/dL Ur Leukocyte Esterase (Negative) Urine RBC (0-3) /hpf Urine WBC (0-5) /hpf Urine WBC Clumps (None) Urine Bacteria (None) /hpf Micro UA Comment Ur Microscopic Review Urine Culture Comments MTS Gel Crossmatch See Detail See Detail Bld Prod Order Comment Imaging Data Radiologist's impression: Chest X-Ray 03/16/18 00:00 CONCLUSION: No acute cardiopulmonary disease. Abdomen/Pelvis CT 03/16/18 13:50 CONCLUSION: 1. Bilateral internal ureteral stents have been placed. There is some interval improvement of the bilateral hydronephrosis compared to 03/03/2018 but mild hydronephrosis is still noted bilaterally. The proximal loop of the right internal ureteral stent is located within the proximal ureter. The left internal ureteral stent appears to be more optimal in position with its proximal loop in the pelvicalyceal system. 2. Evidence of a fluid and air collection within the left hemipelvis which is unchanged in appearance compared to the previous examination and measures 6.0 x 4.1 cm. 3. The uterus is enlarged and extends into the left hemipelvis but is stable compared to the previous examination. 4. Stable left periaortic retroperitoneal lymphadenopathy. 5. Stable left pulmonary nodule measuring 8 mm. 6. Coronary artery calcifications are noted. 7. Degenerative changes and scoliosis of the thoracolumbar spine are noted. Discharge Plan Discharge Disposition Patient Disposition: 30 Still Patient Discharge Details Diagnosis: Acute GI bleeding, Cervical cancer, Abdominal pain, Acute hypotension Physicians Team ED Provider: Philip Go ED Midlevel Provider: Sheila Fuller Primary Care Provider: NON STAFF,PROVIDER Attending Provider: Jazmín Calvin Other Providers: Yakov Soares Andrew Status ED Status: Left Department Discharge Information Discharge Date/Time: 03/16/18 17:00
[2018-03-16] MEDS ORDERED: Pantoprazole Inj 40 MG Vial IV.PUSH ONE (12:37)
[2018-03-16 12:47] LABS: Baso % (Auto) 0.1 % (0.0-2.0); Eos % (Auto) 0.1 % (0.0-4.0); Lymph # (Auto) 0.6 th/mm3 (1.0-4.8); Lymph % (Auto) 5.3 % (9.0-44.0); Mean Corpuscular HGB Conc 33.3 % (32.0-36.0); Mean Corpuscular Hemoglobin 30.5 pg (27.0-34.0); Mean Corpuscular Volume 91.5 fL (80.0-100.0); Mean Platelet Volume 6.2 fL (7.0-11.0); Mono # (Auto) 0.6 th/mm3 (0.0-0.9); Mono % (Auto) 5.3 % (0.0-8.0); Neut # (Auto) 10.3 th/mm3 (1.8-7.7); Neut % (Auto) 89.2 % (16.0-70.0); Platelet Count 262 th/mm3 (150-450); Red Blood Count 1.95 mil/mm3 (4.00-5.30); Red Cell Distribution Width 17.8 % (11.6-17.2); White Blood Count 11.6 th/mm3 (4.0-11.0)
[2018-03-16 12:55] LABS: Activated Partial Thrombo Time 33.9 sec (24.3-30.1); INR 1.1 Ratio; Prothrombin Time 11.3 sec (9.8-11.6)
[2018-03-16 12:58] LABS: Hematocrit 17.9 % (35.0-46.0)
[2018-03-16 13:45] LABS: Alanine Aminotransferase 14 U/L (10-53); Albumin 2.1 g/dL (3.4-5.0); Alkaline Phosphatase 127 U/L (45-117); Anion Gap 13 meq/L (5-15); Aspartate Aminotransferase 11 U/L (15-37); Blood Urea Nitrogen 66 mg/dL (7-18); Calcium 7.6 mg/dL (8.5-10.1); Carbon Dioxide 16.3 meq/L (21.0-32.0); Chloride 106 meq/L (98-107); Glomerular Filtration Rate 29 mL/min (>89); Glucose,Random 168 mg/dL (74-106); Lipase 25 U/L (73-393); Magnesium 1.5 mg/dL (1.5-2.5); Potassium 6.1 meq/L (3.5-5.1); Sodium 135 meq/L (136-145); Total Protein 6.3 g/dL (6.4-8.2)
[2018-03-16 14:19] LABS: Bacteria,Urine Many /hpf; Bilirubin,Urine Negative (Negative); Clarity,Urine Hazy (Clear); Color,Urine Yellow (Yellw/Straw); Glucose,Urine (UA) Negative (Negative); Leukocyte Esterase,Urine Moderate (Negative); Nitrite,Urine Negative (Negative); Specific Gravity,Urine 1.012 (1.002-1.035)
--- NOTE | 2018-03-16 15:54 | CT ---
EXAM DATE: 03/16/2018 3:30 PM EDT AGE/SEX: 62 years / Female INDICATIONS: Abdominal pain, nausea vomiting. CLINICAL DATA: This is the patient's initial encounter. Patient reports that signs and symptoms have been present for 2 days and indicates a pain score of 3/10. MEDICAL/SURGICAL HISTORY: Deep venous thrombosis. Metastatic disease. Carcinoma, cervical. A sthma, hypertension, diabetes, hydronephrosis, pelvic mass. None. RADIATION DOSE: 7.39 CTDI (mGy) [place] [facility] [place]. [facility] [place]/O [place]A ST, 12/21/2017. . TECHNIQUE: Multiple contiguous axial images were obtained through the abdomen. Images were obtained using multiple row detector helical technique. Using automated exposure control and adjustment of the mA and/or kV according to patient size, radiation dose was kept as low as reasonably achievable to o btain optimal diagnostic quality images. DICOM format image data is available electronically for rev iew and comparison. FINDINGS: Bilateral internal ureteral stents have been placed. There is some interval improvement of the bilate ral hydronephrosis compared to 03/03/2018 but mild hydronephrosis is still noted bilaterally. The prox imal loop of the right internal ureteral stent is located within the proximal ureter. The left internet assessor al ureteral stent appears to be more optimal in position with its proximal loop in the pelvicalyceal system. There is evidence of a fluid and air collection within the left hemipelvis which is unchanged in appearance compared to the previous examination and measures 6.0 x 4.1 cm. The uterus is enlarged and extends into the left hemipelvis but is stable compared to the previous examination. Stable left periaortic retroperitoneal lymphadenopathy is noted. There is a stable left pulmonary nodule measuri ng 8 mm. Coronary artery calcifications are noted. Degenerative changes and scoliosis of the thoracol umbar spine are noted. CONCLUSION: 1. Bilateral internal ureteral stents have been placed. There is some interval improvement of the bi lateral hydronephrosis compared to 03/03/2018 but mild hydronephrosis is still noted bilaterally. The proximal loop of the right internal ureteral stent is located within the proximal ureter. The left in ternal ureteral stent appears to be more optimal in position with its proximal loop in the pelvicalyc eal system. 2. Evidence of a fluid and air collection within the left hemipelvis which is unchanged in appearanc e compared to the previous examination and measures 6.0 x 4.1 cm. 3. The uterus is enlarged and extends into the left hemipelvis but is stable compared to the previou s examination. 4. Stable left periaortic retroperitoneal lymphadenopathy. 5. Stable left pulmonary nodule measuring 8 mm. 6. Coronary artery calcifications are noted. 7. Degenerative changes and scoliosis of the thoracolumbar spine are noted. Electronically signed by: Hernan Ramirez MD 03/16/2018 3:53 PM EDT
--- NOTE | 2018-03-16 16:06 | P.CONGI ---
History of Present Illness Consult date: 03/16/18 Consult reason: GI bleed Chief complaint: weakness/side pain/cancer pt History of Present Illness: 62-year-old female came into the hospital on 03/16/2018 after being seen by her oncology team with symptoms of hypotension. Patient had acute onset of uncontrolled epigastric and gastric abdominal pain sharp and stabbing which still persist. Patient also had multiple loose dark melena stools onset times 24 hours and states that she had been taken daily amounts of NSAIDs for her cancer and chemotherapy pain. Patient denies any nausea or vomiting no dyspepsia and no dysphasia. Also according to the record had recent SBO that was medically managed. Patient denies any history of blood thinners. Current labs show hemoglobin 6, WBC count 11.6, platelet count 262, PT/INR 1.1, no elevation in bilirubin or LFTs, and lipase 25. Patient has no family history of colon cancer or GI disease. Patient states possible recent EGD but unknown timing or events. Gastroenterology was consulted to see patient for symptom management as well as plan of care. <Kayce Pagan - Last Filed: 03/16/18 16:10> Review of Systems All other systems reviewed negative except as stated in HPI <Kayce Pagan - Last Filed: 03/16/18 16:10> PMFSH - History History Provided By: Patient - Medical History Medical History: Medical History (Last Reviewed 03/16/18 @ 13:01 by Nury Liu) Diabetes (Acute) Cervical cancer (Acute) Asthma Cancer - Surgical History Surgical History: Surgical History (Last Reviewed 03/16/18 @ 13:01 by Nury Liu) Hx of cataract removal with insertion of prosthetic lens Hx of tonsillectomy - Family History Family History: Family History (Last Reviewed 03/05/18 @ 08:08 by Lis Good) Other Family history not known due to adoption - Tobacco History Second Hand Smoke Exposure: No Tobacco Use In Past 30 Days: No Smoking Status: Former smoker Tobacco Type: Cigarettes - Alcohol History How Often Do You Have a Drink Containing Alcohol: Never - Substance Use History Substance History: No History of Abuse - Travel History Recent Travel in the [place] Within the Last 8 Weeks: No Recent Travel Out of the Country Within the Last 8 Weeks: No - Immunization History Tetanus Immunization: >5 Years Hx Influenza Vaccine This Season: Yes <Kayce Pagan - Last Filed: 03/16/18 16:10> - Medical History Medical History: Medical History (Last Reviewed 03/16/18 @ 13:01 by Nury Liu) Diabetes (Acute) Cervical cancer (Acute) Asthma Cancer - Surgical History Surgical History: Surgical History (Last Reviewed 03/16/18 @ 13:01 by Nury Liu) Hx of cataract removal with insertion of prosthetic lens Hx of tonsillectomy - Family History Family History: Family History (Last Reviewed 03/05/18 @ 08:08 by Lis Good) Other Family history not known due to adoption <Yakov Soares - Last Filed: 03/16/18 17:37> Medications and Allergies Active Medications: Active Medications Sodium Chloride (Ns Flush) 2 ml IV.FLUSH PRN PRN PRN Reason: FLUSH AFTER USING IV ACCESS Last Admin: 03/16/18 12:22 Dose: 2 ml <Kayce Pagan - Last Filed: 03/16/18 16:10> Active Medications: Active Medications Albuterol (Duoneb Neb (Caitlin)) 1 ampul NEB Q4HR NEB CAITLIN Albuterol (Duoneb Neb (Prn)) 1 ampul NEB Q2HR NEB PRN PRN Reason: WHEEZING Bisacodyl (Dulcolax Supp) 10 mg RECTAL DAILY PRN PRN Reason: SEVERE CONSITIPATION Chlorhexidine Gluconate (Chlorhexidine 2% Cloth) 3 pack TOPICAL DAILY@0400 CAITLIN Stop: 03/22/18 03:59 Chlorhexidine Gluconate (Chlorhexidine 2% Cloth) 3 pack TOPICAL DAILY@0400 PRN PRN Reason: Extra cloth needed Stop: 03/22/18 03:59 Dextrose (D50w Vial) 50 ml IV.PUSH UNSCH PRN PRN Reason: PER HYPOGLYCEMIA PROTOCOL Glucagon (Glucagon Inj) 1 mg OTHER PRN PRN PRN Reason: for Hypoglycemia Protocol Sodium Chloride (Ns Inj) 1,000 mls @ 125 mls/hr IV.CONT .Q8H CAITLIN Last Admin: 03/16/18 16:44 Dose: 125 mls/hr Ceftriaxone Sodium 1,000 mg/ (Sodium Chloride) 100 mls @ 200 mls/hr IV.SIG Q24H CAITLIN Phenylephrine HCl 40 mg/ (Dextrose) 500 mls @ 30 mls/hr IV.CONT TITRATE PRN; Protocol PRN Reason: BLOOD PRESSURE MANAGEMENT Calcium Gluconate 1 gm/ Sodium (Chloride) 110 mls @ 110 mls/hr IV.SIG ONCE ONE Stop: 03/16/18 18:29 Last Admin: 03/16/18 17:12 Dose: 110 mls/hr Insulin Human Regular (Novolin R Correctional Sugar Inj) 0 units SQ Q6HR CAITLIN; Protocol Lactulose (Lactulose Liq) 30 ml PO DAILY PRN PRN Reason: SEVERE CONSITIPATION Pantoprazole Sodium (Protonix Inj) 40 mg IV.PUSH DAILY CAITLIN Last Admin: 03/16/18 16:54 Dose: 40 mg Sodium Chloride (Ns Flush) 2 ml IV.FLUSH PRN PRN PRN Reason: FLUSH AFTER USING IV ACCESS Last Admin: 03/16/18 12:22 Dose: 2 ml <Yakov Soares E - Last Filed: 03/16/18 17:37> Allergies Allergy/AdvReac Type Severity Reaction Status Date / Time No Known Allergies Allergy Verified 03/03/18 15:28 Home Medications Medication Instructions Recorded Confirmed Type amlodipine [Norvasc] 5 mg PO DAILY 03/03/18 03/16/18 History dicyclomine 20 mg PO QID 03/03/18 03/16/18 History ibuprofen 800 mg PO TID 03/03/18 03/16/18 History metoclopramide HCl [Reglan] 10 mg PO TID 03/03/18 03/16/18 History ondansetron HCl [Zofran] 8 mg PO TID PRN 03/03/18 03/16/18 History potassium chloride 20 meq PO BID 03/03/18 03/16/18 History sitagliptin [Januvia] 100 mg PO DAILY 03/03/18 03/16/18 History Exam Vital signs: Vital Signs 03/16/18 11:39 03/16/18 12:02 03/16/18 13:06 Temperature 98.4 F 97.8 F Pulse Rate 115 H 103 H 101 H Respiratory Rate 22 18 Blood Pressure 91/56 L 89/60 L Pulse Oximetry 100 98 98 03/16/18 14:04 03/16/18 14:46 03/16/18 15:01 Temperature 97.7 F 97.8 F 97.7 F Pulse Rate 108 H 103 H 103 H Respiratory Rate 20 17 16 Blood Pressure 80/49 L 84/55 L 94/50 L Pulse Oximetry 98 100 99 Intake & Output 03/15/18 03/16/18 03/16/18 18:59 06:59 18:59 Intake Total 1999 Balance 1999 Weight 63.957 kg Intake: IV 1999 NS Inj 1,000 ML @ Wide Open IV. 1999 SIG BOLUS ONE Rx#:[id number] Intake (Blood Product) Amt 0 / Rbc As-3 Leukoreduced Unit 0 / 0 [id number] - Constitutional moderate distress, obese, cachectic, disheveled - Routine HEENT Exam Head: Present: normocephalic ENT: Present: mucous membranes dry - Routine Neck Exam Present: supple - Routine Cardiovascular Exam Present: S1, S2 - Routine Abdominal Exam Present: soft (Round, soft bowel sounds moderate amount of tenderness mid and upper abdomen no obvious distention mild guarding) - Routine Skin Exam Present: intact - Routine Neurological Exam Present: alert (Tearful mildly anxious answering simple questions) <Kayce Pagan - Last Filed: 03/16/18 16:10> Vital signs: Vital Signs 03/16/18 11:39 03/16/18 12:02 03/16/18 13:06 Temperature 98.4 F 97.8 F Pulse Rate 115 H 103 H 101 H Respiratory Rate 22 18 Blood Pressure 91/56 L 89/60 L Pulse Oximetry 100 98 98 03/16/18 14:04 03/16/18 14:46 03/16/18 15:01 Temperature 97.7 F 97.8 F 97.7 F Pulse Rate 108 H 103 H 103 H Respiratory Rate 20 17 16 Blood Pressure 80/49 L 84/55 L 94/50 L Pulse Oximetry 98 100 99 03/16/18 16:40 03/16/18 17:07 Temperature 97.8 F 97.7 F Pulse Rate 106 H 113 H Respiratory Rate 20 18 Blood Pressure 86/54 L 90/53 L Pulse Oximetry 100 Intake & Output 03/15/18 03/16/18 03/16/18 18:59 06:59 18:59 Intake Total 2400 / 2400 Balance 2400 / 2400 Weight 63.957 kg Intake: IV 1999 NS Inj 1,000 ML @ Wide Open IV. 1999 SIG BOLUS ONE Rx#:[id number] Intake (Blood Product) Amt 400 / 400 Rbc As-3 Leukoreduced Unit 0 / 0 [id number] Rbc As-3 Leukoreduced Unit 400 / 400 [id number] <Yakov Soares E - Last Filed: 03/16/18 17:37> Results - Labs CBC & Chem 7: 03/16/18 12:25 03/16/18 12:25 Labs: Laboratory Results - last 24 hr 03/16/18 03/16/18 03/16/18 12:23 12:25 12:25 WBC 11.6 H RBC 1.95 L Hgb 6.0 L* Hct 17.9 L* MCV 91.5 MCH 30.5 MCHC 33.3 RDW 17.8 H Plt Count 262 MPV 6.2 L Prelim Diff (Auto) Slide review pending Neut % (Auto) 89.2 H Lymph % (Auto) 5.3 L [place] % (Auto) 5.3 Eos % (Auto) 0.1 Baso % (Auto) 0.1 Neut # (Auto) 10.3 H Lymph # (Auto) 0.6 L [place] # (Auto) 0.6 Eos # (Auto) 0.0 Baso # (Auto) 0.0 WBC Differential . Diff Scan Auto diff confirmed Differential Comment . PT INR APTT Sodium Potassium Chloride Carbon Dioxide Anion Gap BUN Creatinine Estimated GFR POC Glucose 170 H Random Glucose Calcium Magnesium Cancelled Total Bilirubin AST ALT Alkaline Phosphatase Troponin I Cancelled Total Protein Albumin Lipase Cancelled Urine Color Urine Clarity Urine pH Ur Specific [place] Urine Protein Urine Glucose (UA) Urine Ketones Urine Occult Blood Urine Nitrate Urine Bilirubin Urine Urobilinogen Ur Leukocyte Esterase Urine RBC Urine WBC Urine WBC Clumps Urine Bacteria Micro UA Comment Ur Microscopic Review Urine Culture Comments MTS Gel Crossmatch Bld Prod Order Comment 03/16/18 03/16/18 03/16/18 12:25 12:25 12:30 WBC RBC Hgb Hct MCV MCH MCHC RDW Plt Count MPV Prelim Diff (Auto) Neut % (Auto) Lymph % (Auto) [place] % (Auto) Eos % (Auto) Baso % (Auto) Neut # (Auto) Lymph # (Auto) [place] # (Auto) Eos # (Auto) Baso # (Auto) WBC Differential Diff Scan Differential Comment PT 11.3 INR 1.1 APTT 33.9 H Sodium 135 L Potassium 6.1 H D Chloride 106 Carbon Dioxide 16.3 L Anion Gap 13 BUN 66 H Creatinine 2.12 H Estimated GFR 29 L POC Glucose Random Glucose 168 H Calcium 7.6 L D Magnesium 1.5 Total Bilirubin 0.3 AST 11 L ALT 14 Alkaline Phosphatase 127 H Troponin I Less than 0.02 L Total Protein 6.3 L Albumin 2.1 L Lipase 25 L Urine Color Yellow Urine Clarity Hazy H Urine pH 5.0 Ur Specific [place] 1.012 Urine Protein 30 H Urine Glucose (UA) Negative Urine Ketones Negative Urine Occult Blood Small H Urine Nitrate Negative Urine Bilirubin Negative Urine Urobilinogen Less than 2 Ur Leukocyte Esterase Moderate H Urine RBC 3 Urine WBC 46 H Urine WBC Clumps Moderate H Urine Bacteria Many H Micro UA Comment Cath-culture ind Ur Microscopic Review Not Reportable Urine Culture Comments Cath-cult indicated MTS Gel Crossmatch Bld Prod Order Comment 03/16/18 03/16/18 12:59 13:58 WBC RBC Hgb Hct MCV MCH MCHC RDW Plt Count MPV Prelim Diff (Auto) Neut % (Auto) Lymph % (Auto) [place] % (Auto) Eos % (Auto) Baso % (Auto) Neut # (Auto) Lymph # (Auto) [place] # (Auto) Eos # (Auto) Baso # (Auto) WBC Differential Diff Scan Differential Comment PT INR APTT Sodium Potassium Chloride Carbon Dioxide Anion Gap BUN Creatinine Estimated GFR POC Glucose Random Glucose Calcium Magnesium Total Bilirubin AST ALT Alkaline Phosphatase Troponin I Total Protein Albumin Lipase Urine Color Urine Clarity Urine pH Ur Specific [place] Urine Protein Urine Glucose (UA) Urine Ketones Urine Occult Blood Urine Nitrate Urine Bilirubin Urine Urobilinogen Ur Leukocyte Esterase Urine RBC Urine WBC Urine WBC Clumps Urine Bacteria Micro UA Comment Ur Microscopic Review Urine Culture Comments MTS Gel Crossmatch See Detail See Detail Bld Prod Order Comment - Imaging Impressions Abdomen/Pelvis CT 03/16/18 13:50 CONCLUSION: 1. Bilateral internal ureteral stents have been placed. There is some interval improvement of the bilateral hydronephrosis compared to 03/03/2018 but mild hydronephrosis is still noted bilaterally. The proximal loop of the right internal ureteral stent is located within the proximal ureter. The left internal ureteral stent appears to be more optimal in position with its proximal loop in the pelvicalyceal system. 2. Evidence of a fluid and air collection within the left hemipelvis which is unchanged in appearance compared to the previous examination and measures 6.0 x 4.1 cm. 3. The uterus is enlarged and extends into the left hemipelvis but is stable compared to the previous examination. 4. Stable left periaortic retroperitoneal lymphadenopathy. 5. Stable left pulmonary nodule measuring 8 mm. 6. Coronary artery calcifications are noted. 7. Degenerative changes and scoliosis of the thoracolumbar spine are noted. <Kayce Pagan - Last Filed: 03/16/18 16:10> - Labs CBC & Chem 7: 03/16/18 12:25 03/16/18 12:25 Labs: Laboratory Results - last 24 hr 03/16/18 03/16/18 03/16/18 12:23 12:25 12:25 WBC 11.6 H RBC 1.95 L Hgb 6.0 L* Hct 17.9 L* MCV 91.5 MCH 30.5 MCHC 33.3 RDW 17.8 H Plt Count 262 MPV 6.2 L Prelim Diff (Auto) Slide review pending Neut % (Auto) 89.2 H Lymph % (Auto) 5.3 L [place] % (Auto) 5.3 Eos % (Auto) 0.1 Baso % (Auto) 0.1 Neut # (Auto) 10.3 H Lymph # (Auto) 0.6 L [place] # (Auto) 0.6 Eos # (Auto) 0.0 Baso # (Auto) 0.0 WBC Differential . Diff Scan Auto diff confirmed Differential Comment . PT INR APTT Sodium Potassium Chloride Carbon Dioxide Anion Gap BUN Creatinine Estimated GFR POC Glucose 170 H Random Glucose Calcium Magnesium Cancelled Total Bilirubin AST ALT Alkaline Phosphatase Troponin I Cancelled Total Protein Albumin Lipase Cancelled Urine Color Urine Clarity Urine pH Ur Specific [place] Urine Protein Urine Glucose (UA) Urine Ketones Urine Occult Blood Urine Nitrate Urine Bilirubin Urine Urobilinogen Ur Leukocyte Esterase Urine RBC Urine WBC Urine WBC Clumps Urine Bacteria Micro UA Comment Ur Microscopic Review Urine Culture Comments MTS Gel Crossmatch Bld Prod Order Comment 03/16/18 03/16/18 03/16/18 12:25 12:25 12:30 WBC RBC Hgb Hct MCV MCH MCHC RDW Plt Count MPV Prelim Diff (Auto) Neut % (Auto) Lymph % (Auto) [place] % (Auto) Eos % (Auto) Baso % (Auto) Neut # (Auto) Lymph # (Auto) [place] # (Auto) Eos # (Auto) Baso # (Auto) WBC Differential Diff Scan Differential Comment PT 11.3 INR 1.1 APTT 33.9 H Sodium 135 L Potassium 6.1 H D Chloride 106 Carbon Dioxide 16.3 L Anion Gap 13 BUN 66 H Creatinine 2.12 H Estimated GFR 29 L POC Glucose Random Glucose 168 H Calcium 7.6 L D Magnesium 1.5 Total Bilirubin 0.3 AST 11 L ALT 14 Alkaline Phosphatase 127 H Troponin I Less than 0.02 L Total Protein 6.3 L Albumin 2.1 L Lipase 25 L Urine Color Yellow Urine Clarity Hazy H Urine pH 5.0 Ur Specific [place] 1.012 Urine Protein 30 H Urine Glucose (UA) Negative Urine Ketones Negative Urine Occult Blood Small H Urine Nitrate Negative Urine Bilirubin Negative Urine Urobilinogen Less than 2 Ur Leukocyte Esterase Moderate H Urine RBC 3 Urine WBC 46 H Urine WBC Clumps Moderate H Urine Bacteria Many H Micro UA Comment Cath-culture ind Ur Microscopic Review Not Reportable Urine Culture Comments Cath-cult indicated MTS Gel Crossmatch Bld Prod Order Comment 03/16/18 03/16/18 12:59 13:58 WBC RBC Hgb Hct MCV MCH MCHC RDW Plt Count MPV Prelim Diff (Auto) Neut % (Auto) Lymph % (Auto) [place] % (Auto) Eos % (Auto) Baso % (Auto) Neut # (Auto) Lymph # (Auto) [place] # (Auto) Eos # (Auto) Baso # (Auto) WBC Differential Diff Scan Differential Comment PT INR APTT Sodium Potassium Chloride Carbon Dioxide Anion Gap BUN Creatinine Estimated GFR POC Glucose Random Glucose Calcium Magnesium Total Bilirubin AST ALT Alkaline Phosphatase Troponin I Total Protein Albumin Lipase Urine Color Urine Clarity Urine pH Ur Specific [place] Urine Protein Urine Glucose (UA) Urine Ketones Urine Occult Blood Urine Nitrate Urine Bilirubin Urine Urobilinogen Ur Leukocyte Esterase Urine RBC Urine WBC Urine WBC Clumps Urine Bacteria Micro UA Comment Ur Microscopic Review Urine Culture Comments MTS Gel Crossmatch See Detail See Detail Bld Prod Order Comment - Imaging Impressions Chest X-Ray 03/16/18 00:00 CONCLUSION: No acute cardiopulmonary disease. Abdomen/Pelvis CT 03/16/18 13:50 CONCLUSION: 1. Bilateral internal ureteral stents have been placed. There is some interval improvement of the bilateral hydronephrosis compared to 03/03/2018 but mild hydronephrosis is still noted bilaterally. The proximal loop of the right internal ureteral stent is located within the proximal ureter. The left internal ureteral stent appears to be more optimal in position with its proximal loop in the pelvicalyceal system. 2. Evidence of a fluid and air collection within the left hemipelvis which is unchanged in appearance compared to the previous examination and measures 6.0 x 4.1 cm. 3. The uterus is enlarged and extends into the left hemipelvis but is stable compared to the previous examination. 4. Stable left periaortic retroperitoneal lymphadenopathy. 5. Stable left pulmonary nodule measuring 8 mm. 6. Coronary artery calcifications are noted. 7. Degenerative changes and scoliosis of the thoracolumbar spine are noted. <Yakov Soraes E - Last Filed: 03/16/18 17:37> Assessment and Plan - Plan 62-year-old female came into the hospital on 03/16/2018 after being seen by her oncology team with symptoms of hypotension. Patient had acute onset of uncontrolled epigastric and gastric abdominal pain sharp and stabbing which still persist. Patient also had multiple loose dark melena stools onset times 24 hours and states that she had been taken daily amounts of NSAIDs for her cancer and chemotherapy pain. Patient denies any nausea or vomiting no dyspepsia and no dysphasia. Also according to the record had recent SBO that was medically managed. Patient denies any history of blood thinners. Current labs show hemoglobin 6, WBC count 11.6, platelet count 262, PT/INR 1.1, no elevation in bilirubin or LFTs, and lipase 25. Patient has no family history of colon cancer or GI disease. Patient states possible recent EGD but unknown timing or events. Gastroenterology was consulted to see patient for symptom management as well as plan of care. Symptomatic anemia, symptoms of melena stools Uncontrolled mid upper abdominal pain, aggregating factors probably daily NSAIDs patient was using for pain. No history of GI bleeding, questionable recent EGD but unknown timing or events History of metastatic cervical cancer with current weekly chemotherapy treatments been done Hypotension probably secondary to #1 According to the record recent history of SBO Plan Diet n.p.o. will increase to full liquids for this p.m. N.p.o. at midnight Consent for EGD in a.m. PPI IV Protonix q 12hs. Bowel regimen as needed Zofran Monitor labs with special attention hemoglobin and transfuse as needed Supportive care Further recommendations to follow Patient was seen per myself and Dr. Soares, note was written on his behalf <Kayce Pagan - Last Filed: 03/16/18 16:10> - Plan Patient seen and examined Agree with above Continue with current supportive care Monitor labs Plan for EGD tomorrow <Yakov Soares - Last Filed: 03/16/18 17:37>
[2018-03-16] MEDS ORDERED: Bisacodyl 10 MG Supp RECTAL PRN (16:09)
[2018-03-16] MEDS ORDERED: Dextrose 50% in Water 50 ML Vial IV.PUSH PRN (16:15)
[2018-03-16] MEDS ORDERED: Phenylephrine Inj 40 MG in Dextrose 5% in Water Inj 496 ML IV.CONT PRN ×2 (16:36)
[2018-03-16] MEDS: Sod Chloride 0.9% Inj 1,000 ML IV.CONT SCH (16:44)
[2018-03-16] MEDS ORDERED: Pantoprazole Inj 40 MG Vial IV.PUSH SCH ×2 (17:00)
--- NOTE | 2018-03-16 17:10 | XR ---
EXAM DATE: 03/16/2018 12:00 AM EDT AGE/SEX: 62 years / Female INDICATIONS: Shortness of breath. CLINICAL DATA: This is the patient's initial encounter. Patient reports that signs and symptoms have been present for 1 day and indicates a pain score of Nonresponsive. MEDICAL/SURGICAL HISTORY: Deep venous thrombosis. Metastatic disease. Carcinoma, cervical. A sthma, hypertension, diabetes, hydronephrosis, pelvic mass. None. COMPARISON: C, CHEST 1V SINGLE AP, 03/03/2018. . FINDINGS: The lungs are clear without infiltrate, nodule, or mass. There is no appreciable pleural effusion for technique. Heart and mediastinum are unremarkable. Right IJ [id number] is present w ith tip overlapping the expected region of the SVC. CONCLUSION: No acute cardiopulmonary disease. Electronically signed by: Wai Canales MD 03/16/2018 5:08 PM EDT
[2018-03-16] MEDS ORDERED: Calcium Gluconate Inj 1 GM in Sodium Chlor 0.9% Inj 100 ML IV.SIG ONE (17:30)
--- NOTE | 2018-03-16 18:00 | MH ---
cc: Jazmín Calvin MD DATE OF ADMISSION: 03/16/2018 HISTORY OF PRESENT ILLNESS: The patient is a 62-year-old female with past medical history of metastatic cervical cancer, diabetes mellitus, hypertension, bronchial asthma, who presented to [facility] this afternoon after being seen by her oncology team with symptoms of hypotension. She also reported epigastric abdominal pain associated with multiple loose dark melena stools for one day. She is on daily NSAIDs for her cancer and chemotherapy pain. She denies any associated symptoms of nausea, vomiting or dysphagia. The patient denies any history of blood thinners. On arrival to the ER, she was tachycardic with a heart rate of 115 and hypotensive with systolic blood pressure 80s-90s. Her laboratory data was significant for severe anemia with hemoglobin of 6.0 and hematocrit of 17.9. In addition, she was in renal failure with a BUN of 66 and creatinine 2.12, and hyperkalemic with potassium level of 6.1. Due to her abdominal pain, a CT scan of the abdomen and pelvis was obtained, which showed bilateral ureteral stents with some interval improvement of bilateral hydronephrosis compared to 03/03/2018 study. She also has evidence of fluid and air collection within the left hemipelvis, which is unchanged in appearance compared to previous examination. The patient has retroperitoneal lymphadenopathy and stable left pulmonary nodule. In the ER, she was given 2 liters of crystalloids and 3 units of packed red blood cells have been ordered. The patient was seen by GI service and plan is to proceed with upper endoscopy in the morning. The patient is on room air oxygen with a saturation of 98-100% and last blood pressure 94/50 with a MAP of 64. She denies any chest pain, shortness of breath, cough or any constitutional symptoms. PAST MEDICAL HISTORY: Significant for metastatic cervical cancer, diabetes mellitus, hypertension, bronchial asthma. PAST SURGICAL HISTORY: Tonsillectomy, cataract removal, ureteral stent placement. ALLERGIES: NO KNOWN DRUG ALLERGIES. SOCIAL HISTORY: Nonsmoker, nondrinker. FAMILY HISTORY: Noncontributory to present illness reported. MEDICATIONS AT HOME: Include: 1. Januvia. 2. Zofran. 3. Ibuprofen 4. Norvasc. 5. Dicyclomine. REVIEW OF SYSTEMS: As per HPI. The rest of review of systems unremarkable. PHYSICAL EXAMINATION: GENERAL: A 62-year-old female, critically ill, hypotensive and with gastrointestinal bleed. VITAL SIGNS: Temperature 97.8, pulse of 103, respiratory rate 16, blood pressure 94/50, saturation 99% on room air. HEENT: Atraumatic, normocephalic. Pupils are equal, round, reactive to light and accommodation. Extraocular muscles intact. Conjunctivae pink. Nonicteric sclerae. Oral mucosa dry mucous membranes noted. NECK: Supple. No JVD, adenopathy, or thyromegaly. Trachea midline. CARDIOVASCULAR: Tachycardic. Normal S1, S2. No murmurs, rubs or gallops noted. PULMONARY: Bilateral equal air entry. No crackles or wheezing. ABDOMEN: Soft. Tenderness upon palpation. Hypoactive bowel sounds. EXTREMITIES: No cyanosis, clubbing, edema. NEUROLOGIC: No focal sensory deficit. LABORATORY DATA: Sodium 135, potassium 6.1, chloride 106, CO2 16, BUN 66, creatinine 2.1, glucose 168, calcium 7.6, magnesium 1.5, total bilirubin 0.3, ALT 14, AST 11, alkaline phosphatase 127. Troponin less than 0.02. WBC 11.6, hemoglobin 6, hematocrit 18, platelet count 262. INR 1.1, PT 11.3, PTT 33.9. RADIOGRAPHIC STUDIES: CT abdomen and pelvis showed bilateral ureteral stents with some improvement of bilateral hydronephrosis. IMPRESSION: 1. Gastrointestinal bleeding. 2. Severe anemia secondary to acute blood loss. 3. Acute renal failure. 4. Hyperkalemia. 5. Abdominal pain. 6. Urinary tract infection. 7. Metastatic cervical cancer. 8. History of hydronephrosis, status post bilateral ureteral stent placement. 9. History of hypertension. 10. History of diabetes mellitus. RECOMMENDATIONS: 1. Monitor neuro status closely and avoid any sedatives. 2. Oxygen p.r.n. to maintain sats above 92%. 3. Bronchodilators in the form of DuoNeb. 4. We will obtain a baseline chest x-ray. 5. Pressors if needed. Monitor heart rate and blood pressure closely and maintain MAP greater than 65 mmHg. She was given 2 liters of crystalloids in the ED. We will continue with IV fluids, normal saline at 125 mL an hour. 6. We will obtain a baseline lactic acid level. 7. Monitor renal function, intake and output, and avoid nephrotoxins. We will treat hyperkalemia with IV insulin 7 units x 1 D50, 1 amp of sodium bicarbonate and calcium gluconate. We will repeat a BMP in 1 hour. 8. Keep n.p.o. and place on Protonix 40 mg IV every 12 hours. The patient was seen by GI service and plan to proceed with upper endoscopy in a.m. 9. We will consult General Surgery service. 10. Place on Rocephin for a urinary tract infection and monitor for signs of infection, which include fever and WBC. Follow up on a urine culture, and we will get a chest x-ray as stated above. 11. Sliding scale insulin with Accu-Cheks to maintain euglycemia. 12. Gastrointestinal prophylaxis with Protonix and deep venous thrombosis prophylaxis with sequential compression devices. Chemical anticoagulation prophylaxis contraindicated in the setting of GI bleed and severe anemia. 13. IV access. The patient has peripheral IV and left-sided port. 14. Critical care time 50 minutes, excluding procedures. MD LENNOX Pearce/ruel , 04:59 PM , 05:14 PM
[2018-03-16 18:39] LABS: Hematocrit 21.5 % (35.0-46.0); Hemoglobin 7.5 gm/dL (11.6-15.3)
[2018-03-16] MEDS: Insulin NovoLIN Regular Correctional Sugar Inj SQ SCH (18:44)
[2018-03-16 19:12] LABS: Calcium 7.7 mg/dL (8.5-10.1); Carbon Dioxide 15.9 meq/L (21.0-32.0); Potassium 4.8 meq/L (3.5-5.1)
--- NOTE | 2018-03-16 20:28 | MB ---
cc: Jayy York MD, Alaa MD DATE: 03/16/2018 REASON FOR CONSULTATION: Lower GI bleed and abdominal pain. PHYSICIAN REQUESTING CONSULTATION: Jazmín Calvin MD, workforce planner. HISTORY OF PRESENT ILLNESS: The patient is a 62-year-old female who was admitted to [facility] for GI bleeding. The patient has a known history of metastatic cervical cancer, being followed by medical and radiation oncology and [employer] oncology. The patient is currently undergoing chemotherapy and during her evaluation was found to be significantly anemic. The patient was sent to the emergency department for evaluation. Upon arrival, she was found to have a hemoglobin decreased to 7.5. The patient was also noted to be hypotensive as well as borderline tachycardic. The patient did have some melenic stools, but has no nausea, vomiting or bright red blood per mouth. She does also take of NSAIDs on a daily basis as well. The patient was evaluated by gastroenterology and is currently being prepped for an endoscopy in the morning. The patient currently states she feels better and has decreased pain, but continues to have recurrent melenic stools. She denies shortness of breath, chest pain or any other symptoms. REVIEW OF SYSTEMS: Pertinent review of systems was conducted with the patient and is negative except for the pertinent positives mentioned above in the history of present illness. PAST MEDICAL HISTORY: 1. History of metastatic cervical cancer, currently on chemotherapy. 2. Diabetes mellitus. 3. Hypertension. 4. Asthma. PAST SURGICAL HISTORY: Ureteral stent placement. ALLERGIES: NO KNOWN DRUG ALLERGIES. MEDICATIONS: The patient on diabetic medications as well as Norvasc for blood pressure. She is also taking chemotherapy for her metastatic cervical cancer. FAMILY HISTORY: Noncontributory to current illness. SOCIAL HISTORY: The patient denies alcohol, tobacco or illicit drug use. PHYSICAL EXAMINATION: VITAL SIGNS: Heart rate 110, respiratory rate 24, blood pressure 100/55, O2 saturation 100% on room air. GENERAL: The patient is a thin, chronically ill-appearing female. She is in no acute distress. HEENT: Head is normocephalic, atraumatic. Pupils are round, reactive and accommodating to light. Sclerae are anicteric. Oral cavity is clear. Airway is patent. NECK: Supple. No lymphadenopathy. LUNGS: Breath sounds present bilaterally. Nonlabored breathing pattern. HEART: Regular rate and rhythm. PMI is nondisplaced. ABDOMEN: Mildly distended, subjectively tender without peritonitis or rebound tenderness. RECTAL: Deferred as the patient is just currently being cleaned up by the nurses for melenic stools. She has dark and typical smell of melena. She has no stigma of oral bleeding or vomiting. EXTREMITIES: Trace edema. Warm and well perfused. NEUROLOGIC: The patient is cooperative and awake. Converses minimally. Nonfocal peripheral exam. Cranial nerves 2-12 are grossly intact. LABORATORY VALUES: Hemoglobin is 7.5, up from 6.0. Platelets are 262. INR is 1.1. Chemistry reveals a significantly elevated creatinine of 1.9. IMAGING DATA: A CT scan of the pelvis shows no obstruction or signs of intraperitoneal bleeding. There is a loculated air-fluid collection in the left lower quadrant of uncertain etiology but stable per radiology report. ASSESSMENT PLAN: The patient is a 62-year-old female with metastatic cervical cancer, history of nephropathy and status post ureteral stent placement, now with acute blood loss anemia from gastrointestinal bleeding as well as renal failure. The patient has no signs of intra-abdominal bleeding and likely has an upper gastrointestinal visceral source. I agree with GI's plan of resuscitation and planned upper endoscopy for further evaluation. I agree with the current medical management. I do not recommend any acute surgical intervention at this time as most GI bleeding should be better evaluated and managed endoscopically. I discussed this with the patient and the family and would not recommend any acute surgical intervention at this time. The patient, per the CT scan, has no intra-abdominal acute process. We will follow along with the patient and be of assistance if needed for any clinical change. I did also discuss the case with Dr. Calvin. Thank you very much for the consultation. MD DARON Baez/tatyana , 07:49 PM , 08:00 PM
[2018-03-16] MEDS ORDERED: Famotidine 20 MG Tablet PO SCH (21:00)
[2018-03-16 22:39] LABS: Hematocrit 21.3 % (35.0-46.0); Hemoglobin 7.2 gm/dL (11.6-15.3)
[2018-03-16] MEDS ORDERED: Sodium Chlor 0.9% Inj 250 ML IV.SIG SCH (23:45)
[2018-03-17] MEDS: Insulin NovoLIN Regular Correctional Sugar Inj SQ SCH ×5 (00:22→18:13)
[2018-03-17] MEDS: Sod Chloride 0.9% Inj 1,000 ML IV.CONT SCH ×3 (01:45→16:25)
[2018-03-17] MEDS ORDERED: Chlorhexidine Gluconate 2% 1 Pack (2 Cloths) TOPICAL PRN (04:00)
[2018-03-17 04:16] LABS: Baso % (Auto) 0.2 % (0.0-2.0); Eos % (Auto) 0.1 % (0.0-4.0); Hematocrit 24.4 % (35.0-46.0); Hemoglobin 8.6 gm/dL (11.6-15.3); Lymph # (Auto) 0.8 th/mm3 (1.0-4.8); Lymph % (Auto) 6.9 % (9.0-44.0); Mean Corpuscular HGB Conc 35.3 % (32.0-36.0); Mean Corpuscular Hemoglobin 31.3 pg (27.0-34.0); Mean Corpuscular Volume 88.7 fL (80.0-100.0); Mean Platelet Volume 6.2 fL (7.0-11.0); Mono # (Auto) 0.8 th/mm3 (0.0-0.9); Mono % (Auto) 6.5 % (0.0-8.0); Neut # (Auto) 10.2 th/mm3 (1.8-7.7); Neut % (Auto) 86.3 % (16.0-70.0); Platelet Count 189 th/mm3 (150-450); Red Blood Count 2.75 mil/mm3 (4.00-5.30); Red Cell Distribution Width 15.7 % (11.6-17.2); White Blood Count 11.9 th/mm3 (4.0-11.0)
[2018-03-17] MEDS: Chlorhexidine Gluconate 2% 1 Pack (2 Cloths) TOPICAL SCH (04:31)
[2018-03-17 04:40] LABS: Albumin 1.8 g/dL (3.4-5.0); Anion Gap 12 meq/L (5-15); Aspartate Aminotransferase 9 U/L (15-37); Blood Urea Nitrogen 64 mg/dL (7-18); Calcium 7.8 mg/dL (8.5-10.1); Carbon Dioxide 14.7 meq/L (21.0-32.0); Chloride 115 meq/L (98-107); Glomerular Filtration Rate 39 mL/min (>89); Glucose,Random 186 mg/dL (74-106); Magnesium 1.2 mg/dL (1.5-2.5); Potassium 4.1 meq/L (3.5-5.1); Sodium 142 meq/L (136-145)
[2018-03-17 04:42] LABS: Alanine Aminotransferase 11 U/L (10-53); Phosphorus 3.8 mg/dL (2.5-4.9)
[2018-03-17 04:44] LABS: Alkaline Phosphatase 93 U/L (45-117); Total Protein 5.4 g/dL (6.4-8.2)
[2018-03-17 05:15] LABS: Lymphocytes 5 % (9-44); Monocytes 2 % (0-8)
[2018-03-17 05:17] LABS: Platelet Estimate Normal (Normal); Platelet Morphology Normal (Normal)
[2018-03-17 06:10] LABS: Hematocrit 21.1 % (35.0-46.0); Hemoglobin 7.3 gm/dL (11.6-15.3)
--- NOTE | 2018-03-17 07:51 | P.PNCC ---
Subjective Subjective Remarks/Hospital Course: The patient is a 62-year-old female with past medical history of metastatic cervical cancer, diabetes mellitus, hypertension, bronchialasthma, who presented to [facility] this afternoon after being seen by her oncology team with symptoms of hypotension. She also reported epigastric abdominal pain associated with multiple loosedark melena stools for one day. She is on daily NSAIDs for her cancer and chemotherapy pain. She denies any associated symptoms of nausea, vomiting or dysphagia. The patient denies any history of blood thinners. On arrival to the ER, she was tachycardic with a heart rateof 115 and hypotensive with systolic blood pressure 80s-90s. Her laboratory data was significant for severe anemia with hemoglobin of 6.0 and hematocrit of 17.9. In addition, she was in renal failure with a BUN of 66 and creatinine 2.12, and hyperkalemic with potassium level of 6.1. Due to her abdominal pain, a CT scan of the abdomen andpelvis was obtained, which showed bilateral ureteral stents with some interval improvement of bilateral hydronephrosis compared to 03/03/2018 study. She also has evidence of fluid and air collection within the left hemipelvis, which is unchanged in appearance compared to previous examination. The patient has retroperitoneal lymphadenopathy and stable left pulmonary nodule. In the ER, she was given 2 liters of crystalloids and 3 units of packed red blood cells have been ordered. The patient was seen by GI service and plan is to proceed with upper endoscopy in the morning. The patient is on room air oxygen with a saturation of 98-100% and last blood pressure 94/50 with a MAP of 64. She denies any chest pain, shortness of breath, cough or any constitutional symptoms. 10: Continued gastrointestinal blood loss, likely upper source. Episodic hypotension. Some electrolytes imbalance this morning, being corrected. Starting fifth unit of packed red blood cells now. Protonix drip infusing. Plan for upper endoscopy today. Objective Vital Signs / I&O: Vital Signs 03/16/18 11:39 03/16/18 12:02 03/16/18 13:06 Temperature 98.4 F 97.8 F Pulse Rate 115 H 103 H 101 H Respiratory Rate 22 18 Blood Pressure 91/56 L 89/60 L Pulse Oximetry 100 98 98 03/16/18 14:04 03/16/18 14:46 03/16/18 15:01 Temperature 97.7 F 97.8 F 97.7 F Pulse Rate 108 H 103 H 103 H Respiratory Rate 20 17 16 Blood Pressure 80/49 L 84/55 L 94/50 L Pulse Oximetry 98 100 99 03/16/18 16:40 03/16/18 17:07 03/16/18 18:00 Temperature 97.8 F 97.7 F 97.6 F Pulse Rate 106 H 113 H 94 H Respiratory Rate 20 18 16 Blood Pressure 86/54 L 90/53 L 100/55 L Pulse Oximetry 100 98 03/16/18 19:29 03/16/18 20:00 03/16/18 22:00 Temperature 98.8 F Pulse Rate 110 H 107 H 102 H Respiratory Rate 24 19 Blood Pressure 101/60 Pulse Oximetry 100 100 03/16/18 23:17 03/16/18 23:46 03/17/18 00:00 Temperature 98.2 F 98.2 F Pulse Rate 100 H 104 H 103 H Respiratory Rate 20 18 20 Blood Pressure 94/54 L 115/58 L Pulse Oximetry 100 99 03/17/18 00:04 03/17/18 00:20 03/17/18 02:00 Temperature 98.7 F 98.3 F Pulse Rate 106 H 104 H 110 H Respiratory Rate 23 23 Blood Pressure 102/64 119/70 Pulse Oximetry 100 100 03/17/18 02:11 03/17/18 02:26 03/17/18 02:42 Temperature 98.1 F 98.8 F 98.8 F Pulse Rate 103 H 109 H 105 H Respiratory Rate 23 29 H 28 H Blood Pressure 103/59 L 93/52 L 123/60 Pulse Oximetry 100 100 100 03/17/18 03:11 03/17/18 04:00 03/17/18 06:00 Temperature 98.8 F Pulse Rate 99 H 107 H 94 H Respiratory Rate 19 19 Blood Pressure 93/59 L Pulse Oximetry 100 Intake & Output 03/16/18 03/17/18 03/17/18 18:59 06:59 18:59 Intake Total 2790 / 2790 1600 / 1600 Output Total 100 / 100 Balance 2690 / 2690 1600 / 1600 Weight 63.957 kg 72.2 kg Intake: IV 2210 / 2210 1000 / 1000 NS Inj 1,000 ML @ 125 mls/hr IV 1000 / 1000 .CONT .Q8H SAMANTHA Rx#:[id number] Calcium Gluconate Inj 1 GM In 110 / 110 NS Inj 100 ML @ 110 mls/hr IV. SIG ONCE ONE Rx#:[id number] NS Inj 1,000 ML @ Wide Open IV. 1999 / 1999 SIG BOLUS ONE Rx#:[id number] Rocephin Inj 1,000 MG In NS Inj 100 / 100 100 ML @ 200 mls/hr IV.SIG ONCE ONE Rx#:[id number] Oral 180 / 180 600 / 600 Intake (Blood Product) Amt 400 / 400 0 / 0 Rbc As-3 Leukoreduced Unit 0 / 0 [id number] Rbc As-3 Leukoreduced Unit 0 / 0 [id number] Rbc As-3 Leukoreduced Unit 0 / 0 0 / 0 [id number] Rbc As-3 Leukoreduced Unit 400 / 400 [id number] Output: Stool 100 / 100 Other: # Voids 2 5 # Incontinent Voids 5 Date of Last Bowel Movement 03/16/18 03/17/18 # Bowel Movements 2 6 # Incontinent Bowel Movements 2 6 Weight On Admission 63.957 kg Result Diagrams: 03/17/18 06:00 03/17/18 03:30 Objective Remarks: PHYSICAL EXAMINATION: GENERAL: A 62-year-old female, critically ill, hypotensive and with active gastrointestinal bleed. HEENT: Atraumatic, normocephalic. Pupils are equal, round, reactive to light and accommodation. Extraocular muscles intact. Conjunctivae pink. Nonicteric sclerae. Oral mucosa dry mucous membranes noted. NECK: Supple. Airway widely patent. Trachea midline. CARDIOVASCULAR: Tachycardic. Normal S1, S2. No murmurs, rubs or gallops noted. No JVD. PULMONARY: Bilateral equal air entry. No crackles or wheezing. Comfortable respiratory pattern. ABDOMEN: Soft. Tenderness upon palpation. Active bowel sounds. EXTREMITIES: No cyanosis, clubbing, edema. Well-perfused. NEUROLOGIC: Alert, conversant, cooperative. Moves 4 limbs to command. Assessment and Plan - Assessment and Plan Plan: IMPRESSION: 1. Gastrointestinal bleeding. 2. Severe anemia secondary to acute blood loss. 3. Acute renal failure. 4. Hyperkalemia. 5. Abdominal pain. 6. Urinary tract infection. 7. Metastatic cervical cancer. 8. History of hydronephrosis, status post bilateral ureteral stent placement. 9. History of hypertension. 10. History of diabetes mellitus. PLAN 1. Transfuse additional 2 units of packed red blood cells 2. Oxygen p.r.n. to maintain sats above 92%. 3. Bronchodilators in the form of DuoNeb. 4. Start Protonix drip infusion 5. Pressors if needed. Monitor heart rate and blood pressure closely and maintain MAP greater than 65 mmHg. She was given 2 liters of crystalloids in the ED. We will continue with IV fluids, normal saline at 125 mL an hour. 6. Serial hemoglobin determination 7. Monitor renal function, intake and output, and avoid nephrotoxins. 8. Keep n.p.o. and place on Protonix 40 mg IV every 12 hours. The patient was seen by GI service and plan to proceed with upper endoscopy today. 9. We will consult General Surgery service. 10. Place on Rocephin for a urinary tract infection and monitor for signs of infection. 11. Sliding scale insulin with Accu-Cheks to maintain euglycemia. 12. Gastrointestinal prophylaxis with Protonix and deep venous thrombosis prophylaxis with sequential compression devices. Chemical anticoagulation prophylaxis contraindicated in the setting of GI bleed and severe anemia. 13. IV access. The patient has peripheral IV and left-sided port. Overall impression: This woman is critically ill with a major gastrointestinal hemorrhage. Her hemodynamics were unstable overnight and she is responded to several transfusions of packed red cells. Coagulation profile is normal. Critical care time 38 minutes aside from procedures.
[2018-03-17] MEDS ORDERED: Mag Sulf 1 gm/100 ml Premix 100 ML IV.SIG ONE (08:00)
[2018-03-17] MEDS: Pantoprazole Inj 80 MG in Sodium Chlor 0.9% Inj 100 ML IV.CONT SCH ×2 (08:34→19:15)
[2018-03-17] MEDS ORDERED: Pantoprazole Inj 80 MG in Sodium Chlor 0.9% Inj 35 ML IV.SIG ONE (09:00)
[2018-03-17 12:53] LABS: Hematocrit 31.5 % (35.0-46.0); Hemoglobin 10.7 gm/dL (11.6-15.3)
[2018-03-17] MEDS ORDERED: Phenylephrine/NS 1000 MCG/10ML Syringe IV.PUSH ONE (13:15)
[2018-03-17] MEDS ORDERED: Ketamine Inj 500 MG/10 ML Vial ONE (13:24)
--- NOTE | 2018-03-17 13:25 | ECG ---
Date Performed: 03/16/2018 Time Performed: 12:56:15 PTAGE: 62 years EKG: Sinus rhythm PATTERN CONSISTENT WITH PULMONARY DISEASE LEFT ANTERIOR FASCICULAR BLOCK NONSPECIFIC T-WAVE ABNORMAL ITY ABNORMAL ECG PREVIOUS TRACING : 03/04/2018 03.29 DOCTOR: Omar Gomez Interpretating Date/Time 03/17/2018 13:15:50
--- NOTE | 2018-03-17 13:48 | GIPROC ---
[facility] [address] [facility]. [facility], [address] EGD PROCEDURE REPORT EXAM DATE: 03/17/2018 PATIENT NAME: Morgan Salmeron MR #: [id number] BIRTHDATE: 1955 ATTENDING: Bailey Trevizo MD ORDER #: [id number] FOUNDER AND PRESIDENT: Kennedy Cabello and Keyanna Lubin STATUS: inpatient INDICATIONS: The patient is a 62 yr old female here for an EGD due to acute post hemorrhagic anemia and melena PROCEDURE PERFORMED: EGD w/ ablation MEDICATIONS: None and Per Anesthesia. TOPICAL ANESTHETIC: CONSENT: The patient understands the risks and benefits of the procedure and understands that these risks include, but are not limited to: sedation, allergic reaction, infection, perforation and/or bleeding. Alternative means of evaluation and treatment include, among others: physical exam, x-rays, and/or surgical intervention. The patient elects to proceed with this endoscopic procedure. medical equipment was checked for proper function. Hand hygiene and appropriate measures for infection prevention was taken. After the risks, benefits and alternatives of the procedure were thoroughly explained, Informed consent was verified, confirmed and timeout was successfully executed by the treatment team. The patient was anesthetized with topical anesthesia and the Pentax EG-[id number] endoscope was introduced through the mouth and advanced to the first portion of the duodenum. Retroflexed views revealed large blood clot The gastroscope was then slowly withdrawn and removed. ESOPHAGUS: The mucosa of the esophagus appeared normal. STOMACH: Large blood clot covering 2/3rds of the stomach. No active bleeding. Suctioned as much as possible. DUODENUM: A large non-bleeding non-bleeding and shallow ulcer, ranging between 5-9mm in size, with surrounding edema, a pigmented spot and an adherent clot was found in the duodenal bulb. Argon plasma coagulation was applied to the site. With complete hemostasis achieved. ADVERSE EVENTS: There were no complications. IMPRESSIONS: 1. The esophagus appeared normal 2. Large blood clot covering 2/3rds of the stomach. No active bleeding. Suctioned as much as possible 3. Large non-bleeding ulcer, ranging between 5-9mm in size, was found in the duodenal bulb; Argon plasma coagulation was applied to the site; with complete hemostasis achieved 4. Retroflexed views revealed large blood clot RECOMMENDATIONS: 1. Continue PPI 2. Monitor in ICU, transfuse as needed. Clear liquid diet. IV reglan. REpeat egd tomorrow or monday depending upon clinical course. PATIENT CONDITION: stable DISPOSITION: Inpatient REPEAT EXAM: Return 1 day EGD Bailey Trevizo MD eSigned: Bailey Trevizo MD 03/17/2018 1:48 PM cc: PATIENT NAME: Morgan Salmeron MR#: [id number]
[2018-03-17] MEDS: Morphine Sulfate Inj 2 MG/ML Vial IV.PUSH PRN ×3 (14:36→23:40)
--- NOTE | 2018-03-17 15:21 | P.PNGS ---
Subjective Patient reports: feels better Interval history: DAILY PROGRESS NOTE FOR SURGICAL ATTENDING, DR. MELODY MALDONADO Patient had EGD today Feels better No complaints Physical Exam Vital signs: Vital Signs 03/16/18 16:40 03/16/18 17:07 03/16/18 18:00 Temperature 97.8 F 97.7 F 97.6 F Pulse Rate 106 H 113 H 94 H Respiratory Rate 20 18 16 Blood Pressure 86/54 L 90/53 L 100/55 L Pulse Oximetry 100 98 03/16/18 19:29 03/16/18 20:00 03/16/18 22:00 Temperature 98.8 F Pulse Rate 110 H 107 H 102 H Respiratory Rate 24 19 Blood Pressure 101/60 Pulse Oximetry 100 100 03/16/18 23:17 03/16/18 23:46 03/17/18 00:00 Temperature 98.2 F 98.2 F Pulse Rate 100 H 104 H 103 H Respiratory Rate 20 18 20 Blood Pressure 94/54 L 115/58 L Pulse Oximetry 100 99 03/17/18 00:04 03/17/18 00:20 03/17/18 02:00 Temperature 98.7 F 98.3 F Pulse Rate 106 H 104 H 110 H Respiratory Rate 23 23 Blood Pressure 102/64 119/70 Pulse Oximetry 100 100 03/17/18 02:11 03/17/18 02:26 03/17/18 02:42 Temperature 98.1 F 98.8 F 98.8 F Pulse Rate 103 H 109 H 105 H Respiratory Rate 23 29 H 28 H Blood Pressure 103/59 L 93/52 L 123/60 Pulse Oximetry 100 100 100 03/17/18 03:11 03/17/18 04:00 03/17/18 06:00 Temperature 98.8 F Pulse Rate 99 H 107 H 94 H Respiratory Rate 19 19 Blood Pressure 93/59 L Pulse Oximetry 100 03/17/18 07:48 03/17/18 08:00 03/17/18 08:22 Temperature 98.7 F 98.7 F Pulse Rate 109 H 100 H 102 H Respiratory Rate 20 20 20 Blood Pressure 108/64 96/53 L 97/56 L Pulse Oximetry 100 100 100 03/17/18 08:45 03/17/18 10:28 03/17/18 12:00 Temperature 98.1 F Pulse Rate 100 H 103 H Respiratory Rate 22 18 18 Blood Pressure 91/53 L Pulse Oximetry 100 100 03/17/18 12:12 03/17/18 13:57 03/17/18 14:10 Temperature 98.7 F Pulse Rate 103 H 109 H 107 H Respiratory Rate 20 14 14 Blood Pressure 94/59 L 98/58 L Pulse Oximetry 100 100 Intake & Output 03/16/18 03/17/18 03/17/18 18:59 06:59 18:59 Intake Total 2790 / 2790 1600 / 1600 188 / 188 Output Total 100 / 100 Balance 2690 / 2690 1600 / 1600 1884 Weight 63.957 kg 72.2 kg Intake: IV 2210 / 2210 1000 / 1000 335 / 335 NS Inj 1,000 ML @ 125 mls/hr IV 1000 / 1000 100 / 100 .CONT .Q8H SAMANTHA Rx#:[id number] Ofirmev Inj 1,000 mg In 100 ml 100 / 100 @ 400 mls/hr IV.SIG Q6H PRN Rx# :[id number] Calcium Gluconate Inj 1 GM In 110 / 110 NS Inj 100 ML @ 110 mls/hr IV. SIG ONCE ONE Rx#:[id number] Magnesium Sulfate 1 gm/D5W 100 100 / 100 ml Premix 100 ML @ 100 mls/hr IV.SIG ONCE ONE Rx#:[id number] Protonix Inj 80 MG In NS Inj 35 35 / 35 ML @ 420 mls/hr IV.SIG BOLUS ONE Rx#:[id number] NS Inj 1,000 ML @ Wide Open IV. 1999 SIG BOLUS ONE Rx#:[id number] Rocephin Inj 1,000 MG In NS Inj 100 / 100 100 ML @ 200 mls/hr IV.SIG ONCE ONE Rx#:[id number] Oral 180 / 180 600 / 600 Anesthesia Amount 500 / 500 Other 250 / 250 Rbc As-3 Leukoreduced Unit 250 / 250 [id number] Rbc As-3 Leukoreduced Unit 0 / 0 [id number] Intake (Blood Product) Amt 400 / 400 0 / 0 800 / 800 Rbc As-3 Leukoreduced Unit 0 / 0 [id number] Rbc As-3 Leukoreduced Unit 400 / 400 [id number] Rbc As-3 Leukoreduced Unit 400 / 400 [id number] Rbc As-3 Leukoreduced Unit 0 / 0 [id number] Rbc As-3 Leukoreduced Unit 0 / 0 0 / 0 [id number] Rbc As-3 Leukoreduced Unit 400 / 400 [id number] Output: Stool 100 / 100 Other: # Voids 2 5 # Incontinent Voids 5 Date of Last Bowel Movement 03/16/18 03/17/18 03/17/18 # Bowel Movements 2 6 # Incontinent Bowel Movements 2 6 Weight On Admission 63.957 kg Narrative: Patient laying in the ICU Chest clear Abdomen soft Alert and oriented - Urinary Catheter Management Straight Cath placed during this visit: yes, but has since been removed by the nurse Reason for continuing: Not indwelling catheter Insertion date: 03/16/18 Insertion time: 13:02 Removal date: 03/16/18 Removal time: 12:04 Results - Labs 03/17/18 12:12 03/17/18 03:30 Laboratory Results - last 24 hr 03/16/18 03/16/18 03/16/18 18:24 18:24 22:00 WBC RBC Hgb Hct MCV MCH MCHC RDW Plt Count MPV n AST ALT Alkaline Phosphatase Total Protein Albumin Nasal Screen MRSA (PCR) Mrsa detected MTS Gel Crossmatch Bld Prod Order Comment 03/16/18 03/16/18 03/17/18 22:00 23:09 01:35 WBC RBC Hgb 7.2 L Hct 21.3 L MCV MCH MCHC RDW Plt Count MPV Prelim Diff (Auto) Neut % (Auto) Lymph % (Auto) [place] % (Auto) Eos % (Auto) Baso % (Auto) Neut # (Auto) Lymph # (Auto) [place] # (Auto) Eos # (Auto) Baso # (Auto) WBC Differential Seg Neuts % (Manual) Band Neuts % (Manual) Lymphocytes % (Manual) Monocytes % (Manual) Abs Neuts (Manual) Differential Comment Platelet Estimate Platelet Morphology Sodium Potassium Chloride Carbon Dioxide Anion Gap BUN Creatinine Estimated GFR POC Glucose Random Glucose Lactic Acid Calcium Phosphorus Magnesium Total Bilirubin AST ALT Alkaline Phosphatase Total Protein Albumin Nasal Screen MRSA (PCR) MTS Gel Crossmatch See Detail See Detail Bld Prod Order Comment 03/17/18 03/17/18 03/17/18 03:30 03:30 06:00 WBC 11.9 H RBC 6.9 L [place] % (Auto) 6.5 Eos % (Auto) 0.1 Baso % (Auto) 0.2 Neut # (Auto) 10.2 H Lymph # (Auto) 0.8 L [place] # (Auto) 0.8 Eos # (Auto) 0.0 Baso # (Auto) 0.0 WBC Differential Manual diff final Seg Neuts % (Manual) 88 H Band Neuts % (Manual) 5 Lymphocytes % (Manual) 5 L Monocytes % (Manual) 2 Abs Neuts (Manual) 11.1 H Differential Comment . Platelet Estimate Normal D Albumin 1.8 L Nasal Screen MRSA (PCR) MTS Gel Crossmatch Bld Prod Order Comment Laboratory Last Values WBC 11.9 th/mm3 (4.0-11.0) H 03/17/18 03:30 RBC 2.75 mil/mm3 (4.00-5.30) L 03/17/18 03:30 Hgb 10.7 gm/dL (11.6-15.3) L D 03/17/18 12:12 Hct 31.5 % (35.0-46.0) L 03/17/18 12:12 MCV 88.7 fL (80.0-100.0) 03/17/18 03:30 MCH 31.3 pg (27.0-34.0) 03/17/18 03:30 MCHC 35.3 % (32.0-36.0) 03/17/18 03:30 RDW 15.7 % (11.6-17.2) 03/17/18 03:30 Plt Count 189 th/mm3 (150-450) 03/17/18 03:30 MPV 6.2 fL (7.0-11.0) L 03/17/18 03:30 Prelim Diff (Auto) Slide review pending 03/17/18 03:30 Neut % (Auto) 86.3 % (16.0-70.0) H 03/17/18 03:30 Lymph % (Auto) 6.9 % (9.0-44.0) L 03/17/18 03:30 [place] % (Auto) 6.5 % (0.0-8.0) 03/17/18 03:30 Eos % (Auto) 0.1 % (0.0-4.0) 03/17/18 03:30 Baso % (Auto) 0.2 % (0.0-2.0) 03/17/18 03:30 Neut # (Auto) 10.2 th/mm3 (1.8-7.7) H 03/17/18 03:30 Lymph # (Auto) 0.8 th/mm3 (1.0-4.8) L 03/17/18 03:30 [place] # (Auto) 0.8 th/mm3 (0.0-0.9) 03/17/18 03:30 Eos # (Auto) 0.0 th/mm3 (0.0-0.4) 03/17/18 03:30 Baso # (Auto) 0.0 th/mm3 (0.0-0.2) 03/17/18 03:30 WBC Differential Manual diff final 03/17/18 03:30 Diff Scan Auto diff confirmed 03/16/18 12:25 Seg Neuts % (Manual) 88 % (16-70) H 03/17/18 03:30 Band Neuts % (Manual) 5 % (0-6) 03/17/18 03:30 Lymphocytes % (Manual) 5 % (9-44) L 03/17/18 03:30 Monocytes % (Manual) 2 % (0-8) 03/17/18 03:30 Abs Neuts (Manual) 11.1 th/mm3 (1.8-7.7) H 03/17/18 03:30 Differential Comment . 03/17/18 03:30 Platelet Estimate Normal (Normal) 03/17/18 03:30 Platelet Morphology Normal (Normal) 03/17/18 03:30 PT 11.3 sec (9.8-11.6) 03/16/18 12:25 INR 1.1 Ratio 03/16/18 12:25 APTT 33.9 sec (24.3-30.1) H 03/16/18 12:25 Sodium 142 meq/L (136-145) 03/17/18 03:30 Potassium 4.1 meq/L (3.5-5.1) 03/17/18 03:30 Chloride 115 meq/L (98-107) H 03/17/18 03:30 Carbon Dioxide 14.7 meq/L (21.0-32.0) L 03/17/18 03:30 Anion Gap 12 meq/L (5-15) 03/17/18 03:30 BUN 64 mg/dL (7-18) H 03/17/18 03:30 Creatinine 1.62 mg/dL (0.50-1.00) H 03/17/18 03:30 Estimated GFR 39 mL/min (>89) L 03/17/18 03:30 POC Glucose 193 mg/dl (68-110) H 03/17/18 12:15 Random Glucose 186 mg/dL (74-106) H 03/17/18 03:30 Lactic Acid 1.2 mmol/L (0.4-2.0) 03/16/18 18:24 Calcium 7.8 mg/dL (8.5-10.1) L 03/17/18 03:30 Phosphorus 3.8 mg/dL (2.5-4.9) 03/17/18 03:30 Magnesium 1.2 mg/dL (1.5-2.5) L 03/17/18 03:30 Total Bilirubin 0.4 mg/dL (0.2-1.0) 03/17/18 03:30 AST 9 U/L (15-37) L 03/17/18 03:30 ALT 11 U/L (10-53) 03/17/18 03:30 Alkaline Phosphatase 93 U/L (45-117) 03/17/18 03:30 Troponin I Less than 0.02 ng/mL (0.02-0.05) L 03/16/18 12:25 Total Protein 5.4 g/dL (6.4-8.2) L D 03/17/18 03:30 Albumin 1.8 g/dL (3.4-5.0) L 03/17/18 03:30 Lipase 25 U/L (73-393) L 03/16/18 12:25 Urine Color Yellow (Yellw/Straw) 03/16/18 12:30 Urine Clarity Hazy (Clear) H 03/16/18 12:30 Urine pH 5.0 (5.0-8.5) 03/16/18 12:30 Ur Specific [place] 1.012 (1.002-1.035) 03/16/18 12:30 Urine Protein 30 mg/dL (Neg-Trace) H 03/16/18 12:30 Urine Glucose (UA) Negative mg/dL (Negative) 03/16/18 12:30 Urine Ketones Negative mg/dL (Negative) 03/16/18 12:30 Urine Occult Blood Small (Negative) H 03/16/18 12:30 Urine Nitrate Negative (Negative) 03/16/18 12:30 Urine Bilirubin Negative (Negative) 03/16/18 12:30 Urine Urobilinogen Less than 2 mg/dL (Less than 2) 03/16/18 12:30 Ur Leukocyte Esterase Moderate (Negative) H 03/16/18 12:30 Urine RBC 3 /hpf (0-3) 03/16/18 12:30 Urine WBC 46 /hpf (0-5) H 03/16/18 12:30 Urine WBC Clumps Moderate (None) H 03/16/18 12:30 Urine Bacteria Many /hpf (None) H 03/16/18 12:30 Micro UA Comment Cath-culture ind 03/16/18 12:30 Ur Microscopic Review Not Reportable 03/16/18 12:30 Urine Culture Comments Cath-cult indicated 03/16/18 12:30 Nasal Screen MRSA (PCR) Mrsa detected (Negative) 03/16/18 22:00 MTS Gel Crossmatch See Detail 03/17/18 07:33 Bld Prod Order Comment 03/16/18 13:58 - Imaging Imaging: ITS Impressions Chest X-Ray 03/16/18 00:00 CONCLUSION: No acute cardiopulmonary disease. Abdomen/Pelvis CT 03/16/18 13:50 CONCLUSION: 1. Bilateral internal ureteral stents have been placed. There is some interval improvement of the bilateral hydronephrosis compared to 03/03/2018 but mild hydronephrosis is still noted bilaterally. The proximal loop of the right internal ureteral stent is located within the proximal ureter. The left internal ureteral stent appears to be more optimal in position with its proximal loop in the pelvicalyceal system. 2. Evidence of a fluid and air collection within the left hemipelvis which is unchanged in appearance compared to the previous examination and measures 6.0 x 4.1 cm. 3. The uterus is enlarged and extends into the left hemipelvis but is stable compared to the previous examination. 4. Stable left periaortic retroperitoneal lymphadenopathy. 5. Stable left pulmonary nodule measuring 8 mm. 6. Coronary artery calcifications are noted. 7. Degenerative changes and scoliosis of the thoracolumbar spine are noted. Additional studies: EGD ESOPHAGUS: The mucosa of the esophagus appeared normal. STOMACH: Large blood clot covering 2/3rds of the stomach. No active bleeding. Suctioned as much as possible. DUODENUM: A large non-bleeding non-bleeding and shallow ulcer, ranging between 5-9mm in size, with surrounding edema, a pigmented spot and an adherent clot was found in the duodenal bulb. Argon plasma coagulation was applied to the site. With complete hemostasis achieved. ADVERSE EVENTS: There were no complications. IMPRESSIONS: 1. The esophagus appeared normal 2. Large blood clot covering 2/3rds of the stomach. No active bleeding. Suctioned as much as possible 3. Large non-bleeding ulcer, ranging between 5-9mm in size, was found in the duodenal bulb; Argon plasma coagulation was applied to the site; with complete hemostasis achieved 4. Retroflexed views revealed large blood clot RECOMMENDATIONS: 1. Continue PPI 2. Monitor in ICU, transfuse as needed. Clear liquid diet. IV reglan. REpeat egd tomorrow or monday depending upon clinical course. PATIENT CONDITION: stable DISPOSITION: Inpatient REPEAT EXAM: Return 1 day EGD Assessment and Plan - Assessment (1) Upper GI bleed Code(s): K92.2 - Gastrointestinal hemorrhage, unspecified Status: Acute (2) Cervical cancer Code(s): C53.9 - Malignant neoplasm of cervix uteri, unspecified Status: Chronic - Plan The patient is a 62-year-old female with metastatic cervical cancer, history of nephropathy and status post ureteral stent placement, now with acute blood loss anemia from gastrointestinal bleeding as well as renal failure. The patient has no signs of intra-abdominal bleeding. Patient had upper GI showing gastric ulcer and duodenal ulcer. GI is planning to reevaluate on Monday with repeat I discussed this with the patient We will follow along with the patient and be of assistance if needed for any clinical change. - Attending Attestation NOTE FOR SURGICAL ATTENDING, DR. MELODY MALDONADO I attest that I had a [id number] encounter with the patient on the same day, and personally performed and documented my assessment and findings in the medical record. The following services were provided during this hospital visit: Chart data review, vital sign assessments/reviewing monitor data Review of consultations notes if present. Medication orders/review and/or management Ordering and/or reviewing lab tests Ordering and/or interpreting/reviewing x-rays and/or diagnostic studies Care of the patient and discussion of the patient with the care team Documentation time To help prompt me to consider important information that might be impacting today's encounter and assessment, Information from prior notes written by myself or my colleagues may have been "brought forward/copy and pasted" into today's note. (2) Cervical cancer Qualifiers: Malignant neoplasm of cervix location: unspecified location Qualified Code(s) : C53.9 - Malignant neoplasm of cervix uteri, unspecified
[2018-03-17 18:15] LABS: Hematocrit 28.4 % (35.0-46.0); Hemoglobin 10.1 gm/dL (11.6-15.3)
[2018-03-17 23:53] LABS: Hematocrit 27.2 % (35.0-46.0); Hemoglobin 9.4 gm/dL (11.6-15.3)
[2018-03-18] MEDS: Sod Chloride 0.9% Inj 1,000 ML IV.CONT SCH ×4 (00:02→23:03)
[2018-03-18] MEDS: Insulin NovoLIN Regular Correctional Sugar Inj SQ SCH ×4 (00:02→17:20)
[2018-03-18] MEDS: Chlorhexidine Gluconate 2% 1 Pack (2 Cloths) TOPICAL SCH (03:14)
[2018-03-18] MEDS: Morphine Sulfate Inj 2 MG/ML Vial IV.PUSH PRN ×6 (04:56→20:01)
[2018-03-18] MEDS: Pantoprazole Inj 80 MG in Sodium Chlor 0.9% Inj 100 ML IV.CONT SCH ×3 (04:57→23:35)
[2018-03-18 05:55] LABS: Baso % (Auto) 0.4 % (0.0-2.0); Eos % (Auto) 0.1 % (0.0-4.0); Hematocrit 26.2 % (35.0-46.0); Hemoglobin 9.3 gm/dL (11.6-15.3); Lymph # (Auto) 0.3 th/mm3 (1.0-4.8); Lymph % (Auto) 3.4 % (9.0-44.0); Mean Corpuscular HGB Conc 35.3 % (32.0-36.0); Mean Corpuscular Hemoglobin 31.5 pg (27.0-34.0); Mean Corpuscular Volume 89.3 fL (80.0-100.0); Mono # (Auto) 0.6 th/mm3 (0.0-0.9); Mono % (Auto) 6.1 % (0.0-8.0); Neut # (Auto) 8.5 th/mm3 (1.8-7.7); Platelet Count 129 th/mm3 (150-450); Red Blood Count 2.94 mil/mm3 (4.00-5.30); Red Cell Distribution Width 15.7 % (11.6-17.2); White Blood Count 9.5 th/mm3 (4.0-11.0)
--- NOTE | 2018-03-18 13:50 | P.PNCC ---
Subjective Subjective Remarks/Hospital Course: The patient is a 62-year-old female with past medical history of metastatic cervical cancer, diabetes mellitus, hypertension, bronchialasthma, who presented to [facility] this afternoon after being seen by her oncology team with symptoms of hypotension. She also reported epigastric abdominal pain associated with multiple loosedark melena stools for one day. She is on daily NSAIDs for her cancer and chemotherapy pain. She denies any associated symptoms of nausea, vomiting or dysphagia. The patient denies any history of blood thinners. On arrival to the ER, she was tachycardic with a heart rateof 115 and hypotensive with systolic blood pressure 80s-90s. Her laboratory data was significant for severe anemia with hemoglobin of 6.0 and hematocrit of 17.9. In addition, she was in renal failure with a BUN of 66 and creatinine 2.12, and hyperkalemic with potassium level of 6.1. Due to her abdominal pain, a CT scan of the abdomen andpelvis was obtained, which showed bilateral ureteral stents with some interval improvement of bilateral hydronephrosis compared to 03/03/2018 study. She also has evidence of fluid and air collection within the left hemipelvis, which is unchanged in appearance compared to previous examination. The patient has retroperitoneal lymphadenopathy and stable left pulmonary nodule. In the ER, she was given 2 liters of crystalloids and 3 units of packed red blood cells have been ordered. The patient was seen by GI service and plan is to proceed with upper endoscopy in the morning. The patient is on room air oxygen with a saturation of 98-100% and last blood pressure 94/50 with a MAP of 64. She denies any chest pain, shortness of breath, cough or any constitutional symptoms. 03/17: Continued gastrointestinal blood loss, likely upper source. Episodic hypotension. Some electrolytes imbalance this morning, being corrected. Starting fifth unit of packed red blood cells now. Protonix drip infusing. Plan for upper endoscopy today. 03/18: Hemoglobin and vital signs stable overnight. No evidence of continued bleeding. GI service plans repeat endoscopy after a period of time allowing clot to dissolve in the stomach. Renal function remains acceptable. Objective Vital Signs / I&O: Vital Signs 03/17/18 13:57 03/17/18 14:00 03/17/18 14:10 Temperature 98.7 F Pulse Rate 109 H 105 H 107 H Respiratory Rate 14 14 Blood Pressure 94/59 L 98/58 L Pulse Oximetry 100 100 03/17/18 16:00 03/17/18 18:00 03/17/18 19:00 Temperature Pulse Rate 103 H 98 H Respiratory Rate 16 Blood Pressure Pulse Oximetry 100 03/17/18 20:00 03/17/18 20:26 03/17/18 22:00 Temperature 98.8 F Pulse Rate 90 94 H 101 H Respiratory Rate 18 18 Blood Pressure 131/69 Pulse Oximetry 100 03/18/18 00:00 03/18/18 02:00 03/18/18 04:00 Temperature 98 F 98.3 F Pulse Rate 92 H 94 H 97 H Respiratory Rate 20 15 Blood Pressure 94/51 L 108/58 L Pulse Oximetry 100 100 03/18/18 05:58 03/18/18 07:00 03/18/18 08:00 Temperature 98.2 F Pulse Rate 97 H 94 H Respiratory Rate 20 Blood Pressure 115/64 Pulse Oximetry 100 100 03/18/18 08:11 03/18/18 10:00 03/18/18 12:00 Temperature 98.1 F Pulse Rate 90 109 H 94 H Respiratory Rate 22 12 Blood Pressure 103/56 L Pulse Oximetry 99 100 Intake & Output 03/17/18 03/18/18 03/18/18 18:59 06:59 18:59 Intake Total 3765 / 3765 2009 1000 / 1000 Output Total 250 / 250 Balance 3765 / 3765 1760 / 1760 1000 / 1000 Weight 71.1 kg Intake: IV 1535 / 1535 1350 / 1350 1000 / 1000 Protonix Inj 80 MG In NS Inj 100 / 100 100 / 100 100 ML @ 10 mls/hr IV.CONT CONT SAMANTHA Rx#:[id number] NS Inj 1,000 ML @ 125 mls/hr IV 1100 / 1100 1000 / 1000 1000 / 1000 .CONT .Q8H SAMANTHA Rx#:[id number] Ofirmev Inj 1,000 mg In 100 ml 100 / 100 @ 400 mls/hr IV.SIG Q6H PRN Rx# :[id number] Magnesium Sulfate 1 gm/D5W 100 100 / 100 ml Premix 100 ML @ 100 mls/hr IV.SIG ONCE ONE Rx#:[id number] Protonix Inj 80 MG In NS Inj 35 35 / 35 ML @ 420 mls/hr IV.SIG BOLUS ONE Rx#:[id number] NS Inj 250 ML @ 15 mls/hr IV. 250 / 250 SIG ONCE SAMANTHA Rx#:[id number] Rocephin Inj 1,000 MG In NS Inj 100 / 100 100 ML @ 200 mls/hr IV.SIG Q24H SAMANTHA Rx#:[id number] Oral 680 / 680 660 / 660 Anesthesia Amount 500 / 500 Other 250 / 250 Rbc As-3 Leukoreduced Unit 250 / 250 [id number] Rbc As-3 Leukoreduced Unit 0 / 0 [id number] Intake (Blood Product) Amt 800 / 800 Rbc As-3 Leukoreduced Unit 400 / 400 [id number] Rbc As-3 Leukoreduced Unit 400 / 400 [id number] Output: Urine 250 / 250 Other: # Voids 2 # Incontinent Voids 2 6 Date of Last Bowel Movement 03/17/18 03/17/18 03/17/18 # Bowel Movements 0 # Incontinent Bowel Movements 3 Result Diagrams: 03/18/18 11:50 03/17/18 03:30 Objective Remarks: PHYSICAL EXAMINATION: GENERAL: A 62-year-old female, critically ill, hypotensive and with active gastrointestinal bleed. HEENT: Atraumatic, normocephalic. Pupils are equal, round, reactive to light and accommodating, extraocular muscles intact. Conjunctivae pink. Nonicteric sclerae. Oral mucosa dry mucous membranes noted. NECK: Supple. Airway widely patent. No obstructive noises. CARDIOVASCULAR: Regular rate and rhythm. Normal S1, S2. No murmurs, rubs or gallops noted. No JVD. PULMONARY: Bilateral equal air entry. No crackles or wheezing. Comfortable respiratory pattern. ABDOMEN: Soft. No guarding active bowel sounds. EXTREMITIES: No cyanosis, clubbing, edema. Well-perfused. NEUROLOGIC: Alert, conversant, cooperative. Moves 4 limbs to command. Assessment and Plan - Assessment and Plan Plan: IMPRESSION: 1. Gastrointestinal bleeding. 2. Severe anemia secondary to acute blood loss. 3. Acute renal failure. 4. Hyperkalemia. 5. Abdominal pain. 6. Urinary tract infection. 7. Metastatic cervical cancer. 8. History of hydronephrosis, status post bilateral ureteral stent placement. 9. History of hypertension. 10. History of diabetes mellitus. PLAN 1. Serial hemoglobin determination 2. Oxygen p.r.n. to maintain sats above 92%. 3. Bronchodilators in the form of DuoNeb. 4. Continue Protonix drip infusion 5. Pressors if needed. Monitor heart rate and blood pressure closely and maintain MAP greater than 65 mmHg. She was given 2 liters of crystalloids in the ED. We will continue with IV fluids, normal saline at 125 mL an hour. 6. Serial hemoglobin determination 7. Monitor renal function, intake and output, and avoid nephrotoxins. 10. Place on Rocephin for a urinary tract infection and monitor for signs of infection. 11. Sliding scale insulin with Accu-Cheks to maintain euglycemia. 12. Chemical anticoagulation prophylaxis contraindicated in the setting of GI bleed and severe anemia. 13. IV access. The patient has peripheral IV and left-sided port. Overall impression: This woman was critically ill with a major gastrointestinal hemorrhage. Her hemodynamics have now stabilized and her blood count shows no signs of decline.
--- NOTE | 2018-03-18 16:11 | P.PNGI ---
Subjective Interval history: Patient resting soundly. Denies any nausea vomiting or noted bleeding. Discussed plan for EGD in a.m. <Jacquie Robertson - Last Filed: 03/18/18 16:03> Physical Exam Vital signs: Vital Signs 03/17/18 18:00 03/17/18 19:00 03/17/18 20:00 Temperature 98.8 F Pulse Rate 98 H 90 Respiratory Rate 18 Blood Pressure 131/69 Pulse Oximetry 100 100 03/17/18 20:26 03/17/18 22:00 03/18/18 00:00 Temperature 98 F Pulse Rate 94 H 101 H 92 H Respiratory Rate 18 20 Blood Pressure 94/51 L Pulse Oximetry 100 03/18/18 02:00 03/18/18 04:00 03/18/18 05:58 Temperature 98.3 F Pulse Rate 94 H 97 H 97 H Respiratory Rate 15 Blood Pressure 108/58 L Pulse Oximetry 100 03/18/18 07:00 03/18/18 08:00 03/18/18 08:11 Temperature 98.2 F Pulse Rate 94 H 90 Respiratory Rate 20 22 Blood Pressure 115/64 Pulse Oximetry 100 100 99 03/18/18 10:00 03/18/18 12:00 03/18/18 14:00 Temperature 98.1 F Pulse Rate 109 H 94 H 89 Respiratory Rate 12 Blood Pressure 103/56 L Pulse Oximetry 100 Intake & Output 03/17/18 03/18/18 03/18/18 18:59 06:59 18:59 Intake Total 3765 / 3765 2009 Output Total 250 / 250 Balance 3765 / 3765 1760 / 1760 2099 Weight 71.1 kg Intake: IV 1535 / 1535 1350 / 1350 2099 Protonix Inj 80 MG In NS Inj 100 / 100 100 / 100 100 / 100 100 ML @ 10 mls/hr IV.CONT CONT SAMANTHA Rx#:[id number] NS Inj 1,000 ML @ 125 mls/hr IV 1100 / 1100 1000 / 1000 1999 / 1999 .CONT .Q8H SAMANTHA Rx#:[id number] Ofirmev Inj 1,000 mg In 100 ml 100 / 100 @ 400 mls/hr IV.SIG Q6H PRN Rx# :[id number] Magnesium Sulfate 1 gm/D5W 100 100 / 100 ml Premix 100 ML @ 100 mls/hr IV.SIG ONCE ONE Rx#:[id number] Protonix Inj 80 MG In NS Inj 35 35 / 35 ML @ 420 mls/hr IV.SIG BOLUS ONE Rx#:[id number] NS Inj 250 ML @ 15 mls/hr IV. 250 / 250 SIG ONCE SAMANTHA Rx#:[id number] Rocephin Inj 1,000 MG In NS Inj 100 / 100 100 ML @ 200 mls/hr IV.SIG Q24H SAMANTHA Rx#:[id number] Oral 680 / 680 660 / 660 Anesthesia Amount 500 / 500 Other 250 / 250 Rbc As-3 Leukoreduced Unit 250 / 250 [id number] Rbc As-3 Leukoreduced Unit 0 / 0 [id number] Intake (Blood Product) Amt 800 / 800 Rbc As-3 Leukoreduced Unit 400 / 400 [id number] Rbc As-3 Leukoreduced Unit 400 / 400 [id number] Output: Urine 250 / 250 Other: # Voids 2 # Incontinent Voids 2 6 Date of Last Bowel Movement 03/17/18 03/17/18 03/17/18 # Bowel Movements 0 # Incontinent Bowel Movements 3 - Constitutional no acute distress - Routine HEENT Exam Head: Present: normocephalic - Routine Respiratory Exam Present: CTA bilaterally. Absent: respiratory distress - Routine Cardiovascular Exam Present: RRR - Routine Abdominal Exam Present: soft, normoactive bowel sounds. Absent: tenderness, guarding, firm - Routine Extremities Exam Present: pulses intact. Absent: edema - Routine Skin Exam Present: dry, warm - Routine Neurological Exam Present: alert, oriented X3 - Detailed Neurological Exam: Coma Scale Eye Opening: Spontaneous Verbal Response: Oriented Motor Response: Obey commands [place] Coma Scale Total: 15 - Routine Psychiatric Exam Present: normal affect, cooperative - Urinary Catheter Management Straight Cath placed during this visit: yes, but has since been removed by the nurse Reason for continuing: Not indwelling catheter Insertion date: 03/16/18 Insertion time: 13:02 Removal date: 03/16/18 Removal time: 12:04 <Jacquie Robertson - Last Filed: 03/18/18 16:03> Vital signs: Vital Signs 03/18/18 12:00 03/18/18 14:00 03/18/18 16:00 Temperature 98.1 F 98.2 F Pulse Rate 94 H 89 103 H Respiratory Rate 12 22 Blood Pressure 103/56 L 117/70 Pulse Oximetry 100 100 03/18/18 18:00 03/18/18 19:00 03/18/18 20:00 Temperature 99 F Pulse Rate 84 90 Respiratory Rate 20 Blood Pressure 130/68 Pulse Oximetry 100 100 03/18/18 21:30 03/18/18 22:00 03/19/18 00:00 Temperature 99 F Pulse Rate 97 H 102 H 92 H Respiratory Rate 16 18 Blood Pressure 97/58 L Pulse Oximetry 100 03/19/18 02:00 03/19/18 04:00 03/19/18 06:00 Temperature 98.6 F Pulse Rate 88 84 87 Respiratory Rate 15 Blood Pressure 91/53 L Pulse Oximetry 100 03/19/18 07:00 03/19/18 08:00 03/19/18 08:33 Temperature 98.4 F Pulse Rate 89 88 85 Respiratory Rate 15 12 14 Blood Pressure 98/57 L 114/61 Pulse Oximetry 100 100 99 03/19/18 10:00 03/19/18 10:26 03/19/18 11:00 Temperature Pulse Rate 97 H 94 H Respiratory Rate 15 22 15 Blood Pressure 116/67 96/53 L Pulse Oximetry 100 100 Intake & Output 03/18/18 03/19/18 03/19/18 18:59 06:59 18:59 Intake Total 2200 / 2200 2790 / 2790 100 / 100 Output Total 2300 / 2300 1800 / 1800 Balance -100 / -100 990 / 990 100 / 100 Weight 71.1 kg Intake: IV 2200 / 2200 2550 / 2550 100 / 100 Protonix Inj 80 MG In NS Inj 100 / 100 100 / 100 100 / 100 100 ML @ 10 mls/hr IV.CONT CONT SAMANTHA Rx#:[id number] Neosynephrine Inj 40 MG In D5W 450 / 450 Inj 496 ML @ 40 MCG/MIN 30 mls/ hr IV.CONT TITRATE PRN Rx#: [id number] NS Inj 1,000 ML @ 125 mls/hr IV 1999 .CONT .Q8H SAMANTHA Rx#:[id number] Rocephin Inj 1,000 MG In NS Inj 100 / 100 100 ML @ 200 mls/hr IV.SIG Q24H SAMANTHA Rx#:[id number] Oral 240 / 240 Output: Urine 2300 / 2300 1800 / 1800 Other: # Urine Diapers 2 Date of Last Bowel Movement 03/17/18 03/17/18 # Bowel Movements 0 - Urinary Catheter Management Straight Cath placed during this visit: no <Bailey Trevizo - Last Filed: 03/19/18 11:14> Results - Labs CBC & Chem 7: 03/18/18 11:50 03/17/18 03:30 Laboratory Results - last 24 hr 03/17/18 03/17/18 03/17/18 07:33 17:54 17:58 WBC RBC Hgb 10.1 L Hct 28.4 L MCV MCH MCHC RDW Plt Count MPV Neut % (Auto) Lymph % (Auto) Henry % (Auto) Eos % (Auto) Baso % (Auto) Neut # (Auto) Lymph # (Auto) Henry # (Auto) Eos # (Auto) Baso # (Auto) WBC Differential Differential Comment POC Glucose 181 H MTS Gel Crossmatch See Detail 03/17/18 03/17/18 03/18/18 23:25 23:27 05:40 WBC 9.5 RBC 2.94 L Hgb 9.4 L 9.3 L Hct 27.2 L 26.2 L MCV 89.3 MCH 31.5 MCHC 35.3 RDW 15.7 Plt Count 129 L D MPV 6.0 L Neut % (Auto) 90.0 H Lymph % (Auto) 3.4 L Henry % (Auto) 6.1 Eos % (Auto) 0.1 Baso % (Auto) 0.4 Neut # (Auto) 8.5 H Lymph # (Auto) 0.3 L Henry # (Auto) 0.6 Eos # (Auto) 0.0 Baso # (Auto) 0.0 WBC Differential . Differential Comment Auto diff final POC Glucose 167 H MTS Gel Crossmatch 03/18/18 03/18/18 03/18/18 05:40 11:50 11:53 WBC RBC Hgb 9.0 L Hct 26.0 L MCV MCH MCHC RDW Plt Count MPV Neut % (Auto) Lymph % (Auto) Henry % (Auto) Eos % (Auto) Baso % (Auto) Neut # (Auto) Lymph # (Auto) Henry # (Auto) Eos # (Auto) Baso # (Auto) WBC Differential Differential Comment POC Glucose 119 H 92 MTS Gel Crossmatch Microbiology 03/16/18 12:30 Catheterized Urine Urine Culture - Final No growth in 48 hours <Jacquie Robertson - Last Filed: 03/18/18 16:03> - Labs CBC & Chem 7: 03/19/18 05:05 03/19/18 05:05 Laboratory Results - last 24 hr 03/18/18 03/18/18 03/18/18 11:50 11:53 17:10 WBC RBC Hgb 9.0 L 8.8 L Hct 26.0 L 25.0 L MCV MCH MCHC RDW Plt Count MPV Prelim Diff (Auto) Neut % (Auto) Lymph % (Auto) Henry % (Auto) Eos % (Auto) Baso % (Auto) Neut # (Auto) Lymph # (Auto) Henry # (Auto) Eos # (Auto) Baso # (Auto) WBC Differential Seg Neuts % (Manual) Lymphocytes % (Manual) Monocytes % (Manual) Myelocytes % (Man) Abs Neuts (Manual) Differential Comment Platelet Estimate Platelet Morphology Pappenheimer Bodies Sodium Potassium Chloride Carbon Dioxide Anion Gap BUN Creatinine Estimated GFR POC Glucose 92 Random Glucose Calcium Phosphorus Magnesium Total Bilirubin AST ALT Alkaline Phosphatase Total Protein Albumin TSH Free T4 03/18/18 03/18/18 03/18/18 17:13 23:40 23:42 WBC RBC Hgb 8.6 L Hct 25.3 L MCV MCH MCHC RDW Plt Count MPV Prelim Diff (Auto) Neut % (Auto) Lymph % (Auto) Henry % (Auto) Eos % (Auto) Baso % (Auto) Neut # (Auto) Lymph # (Auto) Henry # (Auto) Eos # (Auto) Baso # (Auto) WBC Differential Seg Neuts % (Manual) Lymphocytes % (Manual) Monocytes % (Manual) Myelocytes % (Man) Abs Neuts (Manual) Differential Comment Platelet Estimate Platelet Morphology Pappenheimer Bodies Sodium Potassium Chloride Carbon Dioxide Anion Gap BUN Creatinine Estimated GFR POC Glucose 134 H 143 H Random Glucose Calcium Phosphorus Magnesium Total Bilirubin AST ALT Alkaline Phosphatase Total Protein Albumin TSH Free T4 03/19/18 03/19/18 05:05 05:05 WBC 8.0 RBC 2.78 L Hgb 8.6 L Hct 25.2 L MCV 91.0 MCH 31.1 MCHC 34.2 RDW 15.6 Plt Count 119 L MPV 6.2 L Prelim Diff (Auto) Slide review pending Neut % (Auto) 90.4 H Lymph % (Auto) 3.4 L Henry % (Auto) 5.7 Eos % (Auto) 0.3 Baso % (Auto) 0.2 Neut # (Auto) 7.2 Lymph # (Auto) 0.3 L Henry # (Auto) 0.5 Eos # (Auto) 0.0 Baso # (Auto) 0.0 WBC Differential Manual diff final Seg Neuts % (Manual) 92 H Lymphocytes % (Manual) 1 L Monocytes % (Manual) 6 Myelocytes % (Man) 1 H Abs Neuts (Manual) 7.4 Differential Comment . Platelet Estimate Low L Platelet Morphology Normal Pappenheimer Bodies Present H Sodium 140 Potassium 3.9 Chloride 114 H Carbon Dioxide 16.7 L Anion Gap 9 BUN 27 H Creatinine 1.03 H Estimated GFR 66 L POC Glucose Random Glucose 105 Calcium 7.9 L Phosphorus 2.8 Magnesium 1.4 L Total Bilirubin 0.2 AST 10 L ALT 13 Alkaline Phosphatase 78 Total Protein 5.5 L Albumin 1.7 L TSH 0.718 Free T4 1.03 Microbiology 03/16/18 12:30 Catheterized Urine Urine Culture - Final No growth in 48 hours <Bailey Trevizo - Last Filed: 03/19/18 11:14> Assessment and Plan - Plan 62-year-old female came into the hospital on 03/16/2018 after being seen by her oncology team with symptoms of hypotension. Patient had acute onset of uncontrolled epigastric and gastric abdominal pain sharp and stabbing which still persist. Patient also had multiple loose dark melena stools onset times 24 hours and states that she had been taken daily amounts of NSAIDs for her cancer and chemotherapy pain. Patient denies any nausea or vomiting no dyspepsia and no dysphasia. Also according to the record had recent SBO that was medically managed. Patient denies any history of blood thinners. Current labs show hemoglobin 6, WBC count 11.6, platelet count 262, PT/INR 1.1, no elevation in bilirubin or LFTs, and lipase 25. Patient has no family history of colon cancer or GI disease. Patient states possible recent EGD but unknown timing or events. Gastroenterology was consulted to see patient for symptom management as well as plan of care. Symptomatic anemia, symptoms of melena stools Uncontrolled mid upper abdominal pain, aggregating factors probably daily NSAIDs patient was using for pain. No history of GI bleeding, questionable recent EGD but unknown timing or events History of metastatic cervical cancer with current weekly chemotherapy treatments been done Hypotension probably secondary to #1 According to the record recent history of SBO 03/18/18 -patient reports generalized fatigue. Hemoglobin 9.0 hematocrit 26.0. Patient denies any noted bleeding denies having BM today. No active bleeding denies nausea vomiting. Plan for repeat EGD in the morning. Plan -N.p.o. after midnight -EGD in a.m. -Zofran as needed -Bowel regimen -Pantoprazole drip -Monitor for active bleeding -Continue to monitor labs -Supportive care -Further recommendations to follow based on findings This patient has been seen by myself and Dr. Trevizo and this note is written on his behalf - Attending Attestation Dr. Trevizo <Jacquie Robertson - Last Filed: 03/18/18 16:03> - Plan Seen and examined with [employer], no bleeding. S/P egd with APC. Repeat egd planned. Monitor labs. <Bailey Trevizo - Last Filed: 03/19/18 11:14>
[2018-03-18 17:41] LABS: Hemoglobin 8.8 gm/dL (11.6-15.3)
--- NOTE | 2018-03-18 18:03 | P.PN ---
Subjective Interval history: Upper abdomen still painful. No further GI bleeding per rectum. Patient still anxious. Physical Exam Vital signs: Vital Signs 03/17/18 19:00 03/17/18 20:00 03/17/18 20:26 Temperature 98.8 F Pulse Rate 90 94 H Respiratory Rate 18 18 Blood Pressure 131/69 Pulse Oximetry 100 100 03/17/18 22:00 03/18/18 00:00 03/18/18 02:00 Temperature 98 F Pulse Rate 101 H 92 H 94 H Respiratory Rate 20 Blood Pressure 94/51 L Pulse Oximetry 100 03/18/18 04:00 03/18/18 05:58 03/18/18 07:00 Temperature 98.3 F Pulse Rate 97 H 97 H Respiratory Rate 15 Blood Pressure 108/58 L Pulse Oximetry 100 100 03/18/18 08:00 03/18/18 08:11 03/18/18 10:00 Temperature 98.2 F Pulse Rate 94 H 90 109 H Respiratory Rate 20 22 Blood Pressure 115/64 Pulse Oximetry 100 99 03/18/18 12:00 03/18/18 14:00 03/18/18 16:00 Temperature 98.1 F 98.2 F Pulse Rate 94 H 89 103 H Respiratory Rate 12 22 Blood Pressure 103/56 L 117/70 Pulse Oximetry 100 100 Intake & Output 03/17/18 03/18/18 03/18/18 18:59 06:59 18:59 Intake Total 3765 / 3765 2009 2200 / 2200 Output Total 250 / 250 Balance 3765 / 3765 1760 / 1760 2200 / 2200 Weight 71.1 kg Intake: IV 1535 / 1535 1350 / 1350 2200 / 2200 Protonix Inj 80 MG In NS Inj 100 / 100 100 / 100 100 / 100 100 ML @ 10 mls/hr IV.CONT CONT SAMANTHA Rx#:[id number] NS Inj 1,000 ML @ 125 mls/hr IV 1100 / 1100 1000 / 1000 1999 / 1999 .CONT .Q8H SAMANTHA Rx#:[id number] Ofirmev Inj 1,000 mg In 100 ml 100 / 100 @ 400 mls/hr IV.SIG Q6H PRN Rx# :[id number] Magnesium Sulfate 1 gm/D5W 100 100 / 100 ml Premix 100 ML @ 100 mls/hr IV.SIG ONCE ONE Rx#:[id number] Protonix Inj 80 MG In NS Inj 35 35 / 35 ML @ 420 mls/hr IV.SIG BOLUS ONE Rx#:[id number] NS Inj 250 ML @ 15 mls/hr IV. 250 / 250 SIG ONCE SAMANTHA Rx#:[id number] Rocephin Inj 1,000 MG In NS Inj 100 / 100 100 / 100 100 ML @ 200 mls/hr IV.SIG Q24H SAMANTHA Rx#:[id number] Oral 680 / 680 660 / 660 Anesthesia Amount 500 / 500 Other 250 / 250 Rbc As-3 Leukoreduced Unit 250 / 250 [id number] Rbc As-3 Leukoreduced Unit 0 / 0 [id number] Intake (Blood Product) Amt 800 / 800 Rbc As-3 Leukoreduced Unit 400 / 400 [id number] Rbc As-3 Leukoreduced Unit 400 / 400 [id number] Output: Urine 250 / 250 Other: # Voids 2 # Incontinent Voids 2 6 Date of Last Bowel Movement 03/17/18 03/17/18 03/17/18 # Bowel Movements 0 # Incontinent Bowel Movements 3 - Routine Abdominal Exam Present: soft, tenderness (Across entire upper abdomen, less so on the lower abdomen bilaterally), guarding - Urinary Catheter Management Straight Cath placed during this visit: yes, but has since been removed by the nurse Reason for continuing: Not indwelling catheter Insertion date: 03/16/18 Insertion time: 13:02 Removal date: 03/16/18 Removal time: 12:04 Results - Labs CBC & Chem 7: 03/18/18 17:10 03/17/18 03:30 Laboratory Results - last 24 hr 03/17/18 03/17/18 03/17/18 07:33 17:54 17:58 WBC RBC Hgb 10.1 L Hct 28.4 L MCV MCH MCHC RDW Plt Count MPV Neut % (Auto) Lymph % (Auto) Alexander % (Auto) Eos % (Auto) Baso % (Auto) Neut # (Auto) Lymph # (Auto) Alexander # (Auto) Eos # (Auto) Baso # (Auto) WBC Differential Differential Comment POC Glucose 181 H MTS Gel Crossmatch See Detail 03/17/18 03/17/18 03/18/18 23:25 23:27 05:40 WBC 9.5 RBC 2.94 L Hgb 9.4 L 9.3 L Hct 27.2 L 26.2 L MCV 89.3 MCH 31.5 MCHC 35.3 RDW 15.7 Plt Count 129 L D MPV 6.0 L Neut % (Auto) 90.0 H Lymph % (Auto) 3.4 L Alexander % (Auto) 6.1 Eos % (Auto) 0.1 Baso % (Auto) 0.4 Neut # (Auto) 8.5 H Lymph # (Auto) 0.3 L Alexander # (Auto) 0.6 Eos # (Auto) 0.0 Baso # (Auto) 0.0 WBC Differential . Differential Comment Auto diff final POC Glucose 167 H MTS Gel Crossmatch 03/18/18 03/18/18 03/18/18 05:40 11:50 11:53 WBC RBC Hgb 9.0 L Hct 26.0 L MCV MCH MCHC RDW Plt Count MPV Neut % (Auto) Lymph % (Auto) Alexander % (Auto) Eos % (Auto) Baso % (Auto) Neut # (Auto) Lymph # (Auto) Alexander # (Auto) Eos # (Auto) Baso # (Auto) WBC Differential Differential Comment POC Glucose 119 H 92 MTS Gel Crossmatch 03/18/18 03/18/18 17:10 17:13 WBC RBC Hgb 8.8 L Hct 25.0 L MCV MCH MCHC RDW Plt Count MPV Neut % (Auto) Lymph % (Auto) Alexander % (Auto) Eos % (Auto) Baso % (Auto) Neut # (Auto) Lymph # (Auto) Alexander # (Auto) Eos # (Auto) Baso # (Auto) WBC Differential Differential Comment POC Glucose 134 H MTS Gel Crossmatch Microbiology 03/16/18 12:30 Catheterized Urine Urine Culture - Final No growth in 48 hours Assessment and Plan - Assessment (1) Upper GI bleed Code(s): K92.2 - Gastrointestinal hemorrhage, unspecified Status: Acute Plan: Continue to monitor hemoglobin and hematocrit. For repeat EGD tomorrow. Hemoglobin has been slowly drifting down and is now 8.8. (2) Cervical cancer Code(s): C53.9 - Malignant neoplasm of cervix uteri, unspecified Status: Chronic - Plan Discussed Condition With: Patient Nurse - Attending Attestation I attest that I had a [id number] encounter with the patient on the same day, and personally performed and documented my assessment and findings in the medical record. The following services were provided during this hospital visit: Chart data review, vital sign assessments/reviewing monitor data Review of consultation notes if present Medication orders/review and/or management Ordering and/or reviewing lab tests Ordering and/or interpreting/reviewing x-rays and/or diagnostic studies Care of the patient and discussion of the patient with the care team Documentation time To help prompt me to consider important information that might be impacting today's encounter and assessment, Information from prior notes written by myself or my colleagues may have been "brought forward/copy and pasted" into today's note. (2) Cervical cancer Qualifiers: Malignant neoplasm of cervix location: unspecified location Qualified Code(s) : C53.9 - Malignant neoplasm of cervix uteri, unspecified
[2018-03-18 23:51] LABS: Hematocrit 25.3 % (35.0-46.0); Hemoglobin 8.6 gm/dL (11.6-15.3)
[2018-03-19] MEDS: Insulin NovoLIN Regular Correctional Sugar Inj SQ SCH ×4 (00:51→18:10)
[2018-03-19] MEDS: Sod Chloride 0.9% Inj 1,000 ML IV.CONT SCH ×4 (00:52→17:15)
[2018-03-19] MEDS: Morphine Sulfate Inj 2 MG/ML Vial IV.PUSH PRN ×5 (02:53→19:24)
[2018-03-19 05:18] LABS: Baso % (Auto) 0.2 % (0.0-2.0); Eos % (Auto) 0.3 % (0.0-4.0); Hematocrit 25.2 % (35.0-46.0); Hemoglobin 8.6 gm/dL (11.6-15.3); Lymph # (Auto) 0.3 th/mm3 (1.0-4.8); Lymph % (Auto) 3.4 % (9.0-44.0); Mean Corpuscular HGB Conc 34.2 % (32.0-36.0); Mean Corpuscular Hemoglobin 31.1 pg (27.0-34.0); Mean Platelet Volume 6.2 fL (7.0-11.0); Mono # (Auto) 0.5 th/mm3 (0.0-0.9); Mono % (Auto) 5.7 % (0.0-8.0); Neut # (Auto) 7.2 th/mm3 (1.8-7.7); Neut % (Auto) 90.4 % (16.0-70.0); Platelet Count 119 th/mm3 (150-450); Red Blood Count 2.78 mil/mm3 (4.00-5.30); Red Cell Distribution Width 15.6 % (11.6-17.2)
[2018-03-19 05:59] LABS: Alanine Aminotransferase 13 U/L (10-53); Albumin 1.7 g/dL (3.4-5.0); Alkaline Phosphatase 78 U/L (45-117); Anion Gap 9 meq/L (5-15); Aspartate Aminotransferase 10 U/L (15-37); Blood Urea Nitrogen 27 mg/dL (7-18); Calcium 7.9 mg/dL (8.5-10.1); Carbon Dioxide 16.7 meq/L (21.0-32.0); Chloride 114 meq/L (98-107); Free T4 (Free Thyroxine) 1.03 ng/dL (0.76-1.46); Glomerular Filtration Rate 66 mL/min (>89); Glucose,Random 105 mg/dL (74-106); Magnesium 1.4 mg/dL (1.5-2.5); Phosphorus 2.8 mg/dL (2.5-4.9); Potassium 3.9 meq/L (3.5-5.1); Sodium 140 meq/L (136-145); Thyroid Stimulating Hormone 0.718 uIU/mL (0.358-3.740); Total Protein 5.5 g/dL (6.4-8.2)
[2018-03-19] MEDS: Chlorhexidine Gluconate 2% 1 Pack (2 Cloths) TOPICAL SCH (06:08)
[2018-03-19 06:33] LABS: Lymphocytes 1 % (9-44); Monocytes 6 % (0-8); Myelocytes 1 % (0-0)
[2018-03-19 06:36] LABS: Platelet Morphology Normal (Normal)
[2018-03-19 06:37] LABS: Pappenheimer Bodies Present
--- NOTE | 2018-03-19 08:16 | P.PNGS ---
Subjective Interval history: Resting in bed Would like an ice chip Going for EGD at noon today No further bleeding reported Physical Exam Vital signs: Vital Signs 03/18/18 10:00 03/18/18 12:00 03/18/18 14:00 Temperature 98.1 F Pulse Rate 109 H 94 H 89 Respiratory Rate 12 Blood Pressure 103/56 L Pulse Oximetry 100 03/18/18 16:00 03/18/18 18:00 03/18/18 19:00 Temperature 98.2 F Pulse Rate 103 H 84 Respiratory Rate 22 Blood Pressure 117/70 Pulse Oximetry 100 100 03/18/18 20:00 03/18/18 21:30 03/18/18 22:00 Temperature 99 F Pulse Rate 90 97 H 102 H Respiratory Rate 20 16 Blood Pressure 130/68 Pulse Oximetry 100 03/19/18 00:00 03/19/18 02:00 03/19/18 04:00 Temperature 99 F 98.6 F Pulse Rate 92 H 88 84 Respiratory Rate 18 15 Blood Pressure 97/58 L 91/53 L Pulse Oximetry 100 100 03/19/18 06:00 Temperature Pulse Rate 87 Respiratory Rate Blood Pressure Pulse Oximetry Intake & Output 03/18/18 03/19/18 03/19/18 18:59 06:59 18:59 Intake Total 2200 / 2200 2790 / 2790 Output Total 2300 / 2300 1800 / 1800 Balance -100 / -100 990 / 990 Weight 71.1 kg Intake: IV 2200 / 2200 2550 / 2550 Protonix Inj 80 MG In NS Inj 100 / 100 100 / 100 100 ML @ 10 mls/hr IV.CONT CONT SAMANTHA Rx#:[id number] Neosynephrine Inj 40 MG In D5W 450 / 450 Inj 496 ML @ 40 MCG/MIN 30 mls/ hr IV.CONT TITRATE PRN Rx#: [id number] NS Inj 1,000 ML @ 125 mls/hr IV 1999 / 1999 .CONT .Q8H SAMANTHA Rx#:[id number] Rocephin Inj 1,000 MG In NS Inj 100 / 100 100 ML @ 200 mls/hr IV.SIG Q24H SAMANTHA Rx#:[id number] Oral 240 / 240 Output: Urine 2300 / 2300 1800 / 1800 Other: # Urine Diapers 2 Date of Last Bowel Movement 03/17/18 03/17/18 # Bowel Movements 0 Narrative: Awake and alert Abd: soft; minimally tender to palpation - Urinary Catheter Management Straight Cath placed during this visit: yes, but has since been removed by the nurse Reason for continuing: Not indwelling catheter Insertion date: 03/16/18 Insertion time: 13:02 Removal date: 03/16/18 Removal time: 12:04 PUREWIC Cath placed during this visit: no Results - Labs 03/20/18 05:00 03/20/18 05:00 Laboratory Results - last 24 hr 03/18/18 03/18/18 03/18/18 11:50 11:53 17:10 WBC RBC Hgb 9.0 L 8.8 L Hct 26.0 L 25.0 L MCV MCH MCHC RDW Plt Count MPV Prelim Diff (Auto) Neut % (Auto) Lymph % (Auto) [place] % (Auto) Eos % (Auto) Baso % (Auto) Neut # (Auto) Lymph # (Auto) [place] # (Auto) Eos # (Auto) Baso # (Auto) WBC Differential Seg Neuts % (Manual) Lymphocytes % (Manual) Monocytes % (Manual) Myelocytes % (Man) Abs Neuts (Manual) Differential Comment Platelet Estimate Platelet Morphology Pappenheimer Bodies Sodium Potassium Chloride Carbon Dioxide Anion Gap BUN Creatinine Estimated GFR POC Glucose 92 Random Glucose Calcium Phosphorus Magnesium Total Bilirubin AST ALT Alkaline Phosphatase Total Protein Albumin TSH Free T4 03/18/18 03/18/18 03/18/18 17:13 23:40 23:42 WBC RBC Hgb 8.6 L Hct 25.3 L MCV MCH MCHC RDW Plt Count MPV Prelim Diff (Auto) Neut % (Auto) Lymph % (Auto) [place] % (Auto) Eos % (Auto) Baso % (Auto) Neut # (Auto) Lymph # (Auto) [place] # (Auto) Eos # (Auto) Baso # (Auto) WBC Differential Seg Neuts % (Manual) Lymphocytes % (Manual) Monocytes % (Manual) Myelocytes % (Man) Abs Neuts (Manual) Differential Comment Platelet Estimate Platelet Morphology Pappenheimer Bodies Sodium Potassium Chloride Carbon Dioxide Anion Gap BUN Creatinine Estimated GFR POC Glucose 134 H 143 H Random Glucose Calcium Phosphorus Magnesium Total Bilirubin AST ALT Alkaline Phosphatase Total Protein Albumin TSH Free T4 03/19/18 03/19/18 05:05 05:05 WBC 8.0 RBC 2.78 L Hgb 8.6 L Hct 25.2 L MCV 91.0 MCH 31.1 MCHC 34.2 RDW 15.6 Plt Count 119 L MPV 6.2 L Prelim Diff (Auto) Slide review pending Neut % (Auto) 90.4 H Lymph % (Auto) 3.4 L [place] % (Auto) 5.7 Eos % (Auto) 0.3 Baso % (Auto) 0.2 Neut # (Auto) 7.2 Lymph # (Auto) 0.3 L [place] # (Auto) 0.5 Eos # (Auto) 0.0 Baso # (Auto) 0.0 WBC Differential Manual diff final Seg Neuts % (Manual) 92 H Lymphocytes % (Manual) 1 L Monocytes % (Manual) 6 Myelocytes % (Man) 1 H Abs Neuts (Manual) 7.4 Differential Comment . Platelet Estimate Low L Platelet Morphology Normal Pappenheimer Bodies Present H Sodium 140 Potassium 3.9 Chloride 114 H Carbon Dioxide 16.7 L Anion Gap 9 BUN 27 H Creatinine 1.03 H Estimated GFR 66 L POC Glucose Random Glucose 105 Calcium 7.9 L Phosphorus 2.8 Magnesium 1.4 L Total Bilirubin 0.2 AST 10 L ALT 13 Alkaline Phosphatase 78 Total Protein 5.5 L Albumin 1.7 L TSH 0.718 Free T4 1.03 - Imaging Imaging: ITS Impressions Chest X-Ray 03/16/18 00:00 CONCLUSION: No acute cardiopulmonary disease. Abdomen/Pelvis CT 03/16/18 13:50 CONCLUSION: 1. Bilateral internal ureteral stents have been placed. There is some interval improvement of the bilateral hydronephrosis compared to 03/03/2018 but mild hydronephrosis is still noted bilaterally. The proximal loop of the right internal ureteral stent is located within the proximal ureter. The left internal ureteral stent appears to be more optimal in position with its proximal loop in the pelvicalyceal system. 2. Evidence of a fluid and air collection within the left hemipelvis which is unchanged in appearance compared to the previous examination and measures 6.0 x 4.1 cm. 3. The uterus is enlarged and extends into the left hemipelvis but is stable compared to the previous examination. 4. Stable left periaortic retroperitoneal lymphadenopathy. 5. Stable left pulmonary nodule measuring 8 mm. 6. Coronary artery calcifications are noted. 7. Degenerative changes and scoliosis of the thoracolumbar spine are noted. Assessment and Plan - Assessment (1) Upper GI bleed Code(s): K92.2 - Gastrointestinal hemorrhage, unspecified Status: Acute Plan: 62 year old female with GIB -No further bleeding reported -Slightly hypotensive overnight; MAP remained greater than 65 -Not tachycardic -Hmg 8.6; stable -GI planning for EGD today at noon; will follow results (2) Cervical cancer Code(s): C53.9 - Malignant neoplasm of cervix uteri, unspecified Status: Chronic - Attending Attestation The exam, history, and the medical decision-making described in the above note were completed with the assistance of the mid-level provider. I reviewed and agree with the findings presented. I attest that I had a [id number] encounter with the patient on the same day, and personally performed and documented my assessment and findings in the medical record. VSS, HH stable, GI management currently no surgery planned surgery will follow for now (2) Cervical cancer Qualifiers: Malignant neoplasm of cervix location: unspecified location Qualified Code(s) : C53.9 - Malignant neoplasm of cervix uteri, unspecified
[2018-03-19] MEDS: Pantoprazole Inj 80 MG in Sodium Chlor 0.9% Inj 100 ML IV.CONT SCH ×2 (09:41→20:07)
[2018-03-19] MEDS ORDERED: Magnesium Sulfate Inj 4 GM in Sodium Chlor 0.9% Inj 92 ML IV.SIG ONE (10:00)
--- NOTE | 2018-03-19 10:56 | P.PNIM ---
Subjective Interval history: The patient is a 62-year-old female with past medical history of metastatic cervical cancer, diabetes mellitus, hypertension, bronchialasthma, who presented to [facility] this afternoon after being seen by her oncology team with symptoms of hypotension. She also reported epigastric abdominal pain associated with multiple loosedark melena stools for one day. She is on daily NSAIDs for her cancer and chemotherapy pain. She denies any associated symptoms of nausea, vomiting or dysphagia. The patient denies any history of blood thinners. On arrival to the ER, she was tachycardic with a heart rateof 115 and hypotensive with systolic blood pressure 80s-90s. Her laboratory data was significant for severe anemia with hemoglobin of 6.0 and hematocrit of 17.9. In addition, she was in renal failure with a BUN of 66 and creatinine 2.12, and hyperkalemic with potassium level of 6.1. Due to her abdominal pain, a CT scan of the abdomen andpelvis was obtained, which showed bilateral ureteral stents with some interval improvement of bilateral hydronephrosis compared to 03/03/2018 study. She also has evidence of fluid and air collection within the left hemipelvis, which is unchanged in appearance compared to previous examination. The patient has retroperitoneal lymphadenopathy and stable left pulmonary nodule. In the ER, she was given 2 liters of crystalloids and 3 units of packed red blood cells have been ordered. The patient was seen by GI service and plan is to proceed with upper endoscopy in the morning. The patient is on room air oxygen with a saturation of 98-100% and last blood pressure 94/50 with a MAP of 64. She denies any chest pain, shortness of breath, cough or any constitutional symptoms. 03/17: Continued gastrointestinal blood loss, likely upper source. Episodic hypotension. Some electrolytes imbalance this morning, being corrected. Starting fifth unit of packed red blood cells now. Protonix drip infusing. Plan for upper endoscopy today. 03/18: Hemoglobin and vital signs stable overnight. No evidence of continued bleeding. GI service plans repeat endoscopy after a period of time allowing clot to dissolve in the stomach. Renal function remains acceptable. 10-8 TRANSFERRED TO OUR SERVICE TODAY FOR EGD LATER TODAY STILL NPO AT THIS TIME AM LABS STILL TAKING MORPHINE FOR PAIN BUT HAVING BORDERLINE BLOOD PRESSURE SO IS GETTING SPARINGLY AT THIS TIME PT AND OT HYPOMAGNESIA WILL REPLACE DW RN AND PT AND FAMILY Physical Exam Vital signs: Vital Signs 03/18/18 12:00 03/18/18 14:00 03/18/18 16:00 Temperature 98.1 F 98.2 F Pulse Rate 94 H 89 103 H Respiratory Rate 12 22 Blood Pressure 103/56 L 117/70 Pulse Oximetry 100 100 03/18/18 18:00 03/18/18 19:00 03/18/18 20:00 Temperature 99 F Pulse Rate 84 90 Respiratory Rate 20 Blood Pressure 130/68 Pulse Oximetry 100 100 03/18/18 21:30 03/18/18 22:00 03/19/18 00:00 Temperature 99 F Pulse Rate 97 H 102 H 92 H Respiratory Rate 16 18 Blood Pressure 97/58 L Pulse Oximetry 100 03/19/18 02:00 03/19/18 04:00 03/19/18 06:00 Temperature 98.6 F Pulse Rate 88 84 87 Respiratory Rate 15 Blood Pressure 91/53 L Pulse Oximetry 100 03/19/18 08:33 03/19/18 10:26 Temperature Pulse Rate 85 Respiratory Rate 14 22 Blood Pressure Pulse Oximetry 99 Intake & Output 03/18/18 03/19/18 03/19/18 18:59 06:59 18:59 Intake Total 2200 / 2200 2790 / 2790 100 / 100 Output Total 2300 / 2300 1800 / 1800 Balance -100 / -100 990 / 990 100 / 100 Weight 71.1 kg Intake: IV 2200 / 2200 2550 / 2550 100 / 100 Protonix Inj 80 MG In NS Inj 100 / 100 100 / 100 100 / 100 100 ML @ 10 mls/hr IV.CONT CONT SAMANTHA Rx#:[id number] Neosynephrine Inj 40 MG In D5W 450 / 450 Inj 496 ML @ 40 MCG/MIN 30 mls/ hr IV.CONT TITRATE PRN Rx#: [id number] NS Inj 1,000 ML @ 125 mls/hr IV 1999 .CONT .Q8H SAMANTHA Rx#:[id number] Rocephin Inj 1,000 MG In NS Inj 100 / 100 100 ML @ 200 mls/hr IV.SIG Q24H SAMANTHA Rx#:[id number] Oral 240 / 240 Output: Urine 2300 / 2300 1800 / 1800 Other: # Urine Diapers 2 Date of Last Bowel Movement 03/17/18 03/17/18 # Bowel Movements 0 Narrative: GENERAL: Awake alert and oriented x3 talkative and cooperative --appears to be in mild distress SKIN: Warm and dry. HEAD: Atraumatic. Normocephalic. EYES: Pupils equal and round. No scleral icterus. No injection or drainage. EOMI ENT: No nasal bleeding or discharge. Mucous membranes pink and moist. Tongue is midline NECK: Trachea midline. No JVD. Neck is supple CARDIOVASCULAR: Regular rate and rhythm. S1-S2 no S3 or S4 RESPIRATORY: No accessory muscle use. Clear to auscultation. Breath sounds equal bilaterally. GASTROINTESTINAL: Abdomen soft, non-tender, nondistended. Hepatic and splenic margins not palpable. MUSCULOSKELETAL: Extremities without clubbing, cyanosis, or edema. No obvious deformities. NEUROLOGICAL: Awake and alert. No obvious cranial nerve deficits. Motor grossly within normal limits. Five out of 5 muscle strength in the arms and legs. Normal speech. PSYCHIATRIC: Appropriate mood and affect; insight and judgment normal. - Urinary Catheter Management Straight Cath placed during this visit: yes, but has since been removed by the nurse Reason for continuing: Not indwelling catheter Insertion date: 03/16/18 Insertion time: 13:02 Removal date: 03/16/18 Removal time: 12:04 Results - Labs CBC & Chem 7: 03/19/18 05:05 03/19/18 05:05 Laboratory Results - last 24 hr 03/18/18 03/18/18 03/18/18 11:50 11:53 17:10 WBC RBC Hgb 9.0 L 8.8 L Hct 26.0 L 25.0 L MCV MCH MCHC RDW Plt Count MPV Prelim Diff (Auto) Neut % (Auto) Lymph % (Auto) [place] % (Auto) Eos % (Auto) Baso % (Auto) Neut # (Auto) Lymph # (Auto) [place] # (Auto) Eos # (Auto) Baso # (Auto) WBC Differential Seg Neuts % (Manual) Lymphocytes % (Manual) Monocytes % (Manual) Myelocytes % (Man) Abs Neuts (Manual) Differential Comment Platelet Estimate Platelet Morphology Pappenheimer Bodies Sodium Potassium Chloride Carbon Dioxide Anion Gap BUN Creatinine Estimated GFR POC Glucose 92 Random Glucose Calcium Phosphorus Magnesium Total Bilirubin AST ALT Alkaline Phosphatase Total Protein Albumin TSH Free T4 03/18/18 03/18/18 03/18/18 17:13 23:40 23:42 WBC RBC Hgb 8.6 L Hct 25.3 L MCV MCH MCHC RDW Plt Count MPV Prelim Diff (Auto) Neut % (Auto) Lymph % (Auto) [place] % (Auto) Eos % (Auto) Baso % (Auto) Neut # (Auto) Lymph # (Auto) [place] # (Auto) Eos # (Auto) Baso # (Auto) WBC Differential Seg Neuts % (Manual) Lymphocytes % (Manual) Monocytes % (Manual) Myelocytes % (Man) Abs Neuts (Manual) Differential Comment Platelet Estimate Platelet Morphology Pappenheimer Bodies Sodium Potassium Chloride Carbon Dioxide Anion Gap BUN Creatinine Estimated GFR POC Glucose 134 H 143 H Random Glucose Calcium Phosphorus Magnesium Total Bilirubin AST ALT Alkaline Phosphatase Total Protein Albumin TSH Free T4 03/19/18 03/19/18 05:05 05:05 WBC 8.0 RBC 2.78 L Hgb 8.6 L Hct 25.2 L MCV 91.0 MCH 31.1 MCHC 34.2 RDW 15.6 Plt Count 119 L MPV 6.2 L Prelim Diff (Auto) Slide review pending Neut % (Auto) 90.4 H Lymph % (Auto) 3.4 L [place] % (Auto) 5.7 Eos % (Auto) 0.3 Baso % (Auto) 0.2 Neut # (Auto) 7.2 Lymph # (Auto) 0.3 L [place] # (Auto) 0.5 Eos # (Auto) 0.0 Baso # (Auto) 0.0 WBC Differential Manual diff final Seg Neuts % (Manual) 92 H Lymphocytes % (Manual) 1 L Monocytes % (Manual) 6 Myelocytes % (Man) 1 H Abs Neuts (Manual) 7.4 Differential Comment . Platelet Estimate Low L Platelet Morphology Normal Pappenheimer Bodies Present H Sodium 140 Potassium 3.9 Chloride 114 H Carbon Dioxide 16.7 L Anion Gap 9 BUN 27 H Creatinine 1.03 H Estimated GFR 66 L POC Glucose Random Glucose 105 Calcium 7.9 L Phosphorus 2.8 Magnesium 1.4 L Total Bilirubin 0.2 AST 10 L ALT 13 Alkaline Phosphatase 78 Total Protein 5.5 L Albumin 1.7 L TSH 0.718 Free T4 1.03 Microbiology 03/16/18 12:30 Catheterized Urine Urine Culture - Final No growth in 48 hours - Imaging ITS Impressions Chest X-Ray 03/16/18 00:00 CONCLUSION: No acute cardiopulmonary disease. Abdomen/Pelvis CT 03/16/18 13:50 CONCLUSION: 1. Bilateral internal ureteral stents have been placed. There is some interval improvement of the bilateral hydronephrosis compared to 03/03/2018 but mild hydronephrosis is still noted bilaterally. The proximal loop of the right internal ureteral stent is located within the proximal ureter. The left internal ureteral stent appears to be more optimal in position with its proximal loop in the pelvicalyceal system. 2. Evidence of a fluid and air collection within the left hemipelvis which is unchanged in appearance compared to the previous examination and measures 6.0 x 4.1 cm. 3. The uterus is enlarged and extends into the left hemipelvis but is stable compared to the previous examination. 4. Stable left periaortic retroperitoneal lymphadenopathy. 5. Stable left pulmonary nodule measuring 8 mm. 6. Coronary artery calcifications are noted. 7. Degenerative changes and scoliosis of the thoracolumbar spine are noted. - Procedures EGD PROCEDURE REPORT EXAM DATE: 03/17/2018 PATIENT NAME: Morgan Salmeron MR #: [id number] BIRTHDATE: 1955 ATTENDING: Bailey Trevizo MD ORDER #: [id number] SUPERVISOR BAKERY SANITATION: Kennedy Cabello and Keyanna Lubin STATUS: inpatient INDICATIONS: The patient is a 62 yr old female here for an EGD due to acute post hemorrhagic anemia and melena PROCEDURE PERFORMED: EGD w/ ablation MEDICATIONS: None and Per Anesthesia. TOPICAL ANESTHETIC: CONSENT: The patient understands the risks and benefits of the procedure and understands that these risks include, but are not limited to: sedation, allergic reaction, infection, perforation and/or bleeding. Alternative means of evaluation and treatment include, among others: physical exam, x-rays, and/or surgical intervention. The patient elects to proceed with this endoscopic procedure. medical equipment was checked for proper function. Hand hygiene and appropriate measures for infection prevention was taken. After the risks, benefits and alternatives of the procedure were thoroughly explained, Informed consent was verified, confirmed and timeout was successfully executed by the treatment team. The patient was anesthetized with topical anesthesia and the Joosyax EG-[id number] endoscope was introduced through the mouth and advanced to the first portion of the duodenum. Retroflexed views revealed large blood clot The gastroscope was then slowly withdrawn and removed. ESOPHAGUS: The mucosa of the esophagus appeared normal. STOMACH: Large blood clot covering 2/3rds of the stomach. No active bleeding. Suctioned as much as possible. DUODENUM: A large non-bleeding non-bleeding and shallow ulcer, ranging between 5-9mm in size, with surrounding edema, a pigmented spot and an adherent clot was found in the duodenal bulb. Argon plasma coagulation was applied to the site. With complete hemostasis achieved. ADVERSE EVENTS: There were no complications. IMPRESSIONS: 1. The esophagus appeared normal 2. Large blood clot covering 2/3rds of the stomach. No active bleeding. Suctioned as much as possible 3. Large non-bleeding ulcer, ranging between 5-9mm in size, was found in the duodenal bulb; Argon plasma coagulation was applied to the site; with complete hemostasis achieved 4. Retroflexed views revealed large blood clot RECOMMENDATIONS: 1. Continue PPI 2. Monitor in ICU, transfuse as needed. Clear liquid diet. IV reglan. REpeat egd tomorrow or monday depending upon clinical course. PATIENT CONDITION: stable DISPOSITION: Inpatient REPEAT EXAM: Return 1 day EGD Bailey Trevizo MD eSigned: Bailey Trevizo MD 03/17/2018 1:48 PM Assessment and Plan - Plan IMPRESSION: 1. Gastrointestinal bleeding.--Had first EGD on 03-17 to have a repeat EGD on 2. Severe anemia secondary to acute blood loss. 3. Acute renal failure. Slow improvement 4. Hyperkalemia. 5. Abdominal pain. 6. Urinary tract infection. On Rocephin 7. Metastatic cervical cancer.-Pain control is able to tolerate 8. History of hydronephrosis, status post bilateral ureteral stent placement. 9. History of hypertension.-Borderline blood pressure at this time 10. History of diabetes mellitus. 11. Hypomagnesia will replace-a.m. labs PLAN 1. Serial hemoglobin determination 2. Oxygen p.r.n. to maintain sats above 92%. 3. Bronchodilators in the form of DuoNeb. 4. Continue Protonix drip infusion 5. Pressors if needed. Monitor heart rate and blood pressure closely and maintain MAP greater than 65 mmHg. She was given 2 liters of crystalloids in the ED. We will continue with IV fluids, normal saline at 125 mL an hour. 6. Serial hemoglobin determination 7. Monitor renal function, intake and output, and avoid nephrotoxins. 10. Place on Rocephin for a urinary tract infection and monitor for signs of infection. 11. Sliding scale insulin with Accu-Cheks to maintain euglycemia. 12. Chemical anticoagulation prophylaxis contraindicated in the setting of GI bleed and severe anemia. 13. IV access. The patient has peripheral IV and left-sided port. 14 replace magnesium per low magnesium level replacement 15 had first EGD on 106 and will have repeat EGD on 108 A.m. labs Discussed with RN and patient and family Code Status: Full code Discussed Condition With: RN and patient and family Discharge Planning: Pending improvement and stabilization of GI bleeding
--- NOTE | 2018-03-19 12:13 | GIPROC ---
[facility] [address] [facility]. [facility], [address] EGD PROCEDURE REPORT EXAM DATE: 03/19/2018 PATIENT NAME: Morgan Salmeron MR #: [id number] BIRTHDATE: 1955 ATTENDING: Bailey Trevizo MD ORDER #: [id number] WING SCORER: Alberto Padilla Pena, Gabriela, and Guillermina Potter STATUS: inpatient INDICATIONS: The patient is a 62 yr old female here for an EGD due to acute post hemorrhagic anemia PROCEDURE PERFORMED: EGD, diagnostic MEDICATIONS: None and Per Anesthesia. TOPICAL ANESTHETIC: CONSENT: The patient understands the risks and benefits of the procedure and understands that these risks include, but are not limited to: sedation, allergic reaction, infection, perforation and/or bleeding. Alternative means of evaluation and treatment include, among others: physical exam, x-rays, and/or surgical intervention. The patient elects to proceed with this endoscopic procedure. medical equipment was checked for proper function. Hand hygiene and appropriate measures for infection prevention was taken. After the risks, benefits and alternatives of the procedure were thoroughly explained, Informed consent was verified, confirmed and timeout was successfully executed by the treatment team. The patient was anesthetized with topical anesthesia and the Pentax EG-[id number] endoscope was introduced through the mouth and advanced to the second portion of the duodenum. Retroflexed views revealed no abnormalities The gastroscope was then slowly withdrawn and removed. ESOPHAGUS: The mucosa of the esophagus appeared normal. STOMACH: Two large non-bleeding, deep and irregular shaped ulcers, measuring 20 x 30mm in size, with heaped up edges, an adherent clot and a pigmented spot were found in the gastric body, on the lesser curvature of the stomach, and in the gastric antrum. DUODENUM: Two non-bleeding, shallow and clean-based ulcers ranging between 3-5 mm in size were found in the 1st part of the duodenum. ADVERSE EVENTS: There were no complications. IMPRESSIONS: 1. The esophagus appeared normal 2. Two large ulcers, measuring 20 x 30mm in size, were found in the gastric body, on the lesser curvature of the stomach, and in the gastric antrum 3. Two ulcers ranging between 3-5 mm in size were found in the 1st part of the duodenum 4. Retroflexed views revealed no abnormalities RECOMMENDATIONS: 1. Anti-reflux regimen 2. Continue PPI 3. If rebleeds needs IR consultation with L gastric artery embolization PATIENT CONDITION: stable DISPOSITION: Inpatient REPEAT EXAM: Return 1 month EGD Bailey Trevizo MD eSigned: Bailey Trevizo MD 03/19/2018 12:13 PM cc: PATIENT NAME: Morgan Salmeron MR#: [id number]
[2018-03-19 12:49] LABS: Hematocrit 25.5 % (35.0-46.0); Hemoglobin 8.8 gm/dL (11.6-15.3)
[2018-03-19 15:51] LABS: Hemoglobin A1c 5.9 % (4.3-6.0)
[2018-03-19 19:19] LABS: Hematocrit 27.7 % (35.0-46.0); Hemoglobin 9.3 gm/dL (11.6-15.3)
[2018-03-20 00:10] LABS: Hematocrit 23.8 % (35.0-46.0); Hemoglobin 8.3 gm/dL (11.6-15.3)
[2018-03-20] MEDS: Insulin NovoLIN Regular Correctional Sugar Inj SQ SCH ×5 (00:11→23:03)
[2018-03-20] MEDS: Morphine Sulfate Inj 2 MG/ML Vial IV.PUSH PRN ×7 (00:11→23:03)
[2018-03-20] MEDS: Sod Chloride 0.9% Inj 1,000 ML IV.CONT SCH ×3 (03:16→18:00)
[2018-03-20] MEDS: Chlorhexidine Gluconate 2% 1 Pack (2 Cloths) TOPICAL SCH (03:17)
[2018-03-20] MEDS ORDERED: Sodium Chloride 0.9% 2 ML Flush PRN IV.FLUSH (05:05)
[2018-03-20 05:25] LABS: INR 1.1 Ratio; Prothrombin Time 10.9 sec (9.8-11.6)
[2018-03-20 05:27] LABS: Baso % (Auto) 0.2 % (0.0-2.0); Eos % (Auto) 0.3 % (0.0-4.0); Hematocrit 24.4 % (35.0-46.0); Hemoglobin 8.4 gm/dL (11.6-15.3); Lymph # (Auto) 0.3 th/mm3 (1.0-4.8); Lymph % (Auto) 5.4 % (9.0-44.0); Mean Corpuscular HGB Conc 34.4 % (32.0-36.0); Mean Corpuscular Hemoglobin 32.5 pg (27.0-34.0); Mean Corpuscular Volume 94.4 fL (80.0-100.0); Mean Platelet Volume 6.5 fL (7.0-11.0); Mono # (Auto) 0.4 th/mm3 (0.0-0.9); Mono % (Auto) 6.6 % (0.0-8.0); Neut # (Auto) 5.4 th/mm3 (1.8-7.7); Neut % (Auto) 87.5 % (16.0-70.0); Platelet Count 124 th/mm3 (150-450); Red Blood Count 2.58 mil/mm3 (4.00-5.30); White Blood Count 6.2 th/mm3 (4.0-11.0)
[2018-03-20 05:51] LABS: Albumin 1.7 g/dL (3.4-5.0); Calcium 7.4 mg/dL (8.5-10.1); Carbon Dioxide 17.5 meq/L (21.0-32.0); Magnesium 1.8 mg/dL (1.5-2.5); Phosphorus 2.7 mg/dL (2.5-4.9); Potassium 3.7 meq/L (3.5-5.1); Total Protein 5.6 g/dL (6.4-8.2)
[2018-03-20] MEDS: Pantoprazole Inj 80 MG in Sodium Chlor 0.9% Inj 100 ML IV.CONT SCH ×2 (06:01→17:10)
[2018-03-20] MEDS: Sodium Chloride 0.9% 2 ML Flush BID IV.FLUSH SCH ×2 (10:13→20:51)
--- NOTE | 2018-03-20 12:29 | P.PNIM ---
Subjective Interval history: The patient is a 62-year-old female with past medical history of metastatic cervical cancer, diabetes mellitus, hypertension, bronchialasthma, who presented to [facility] this afternoon after being seen by her oncology team with symptoms of hypotension. She also reported epigastric abdominal pain associated with multiple loosedark melena stools for one day. She is on daily NSAIDs for her cancer and chemotherapy pain. She denies any associated symptoms of nausea, vomiting or dysphagia. The patient denies any history of blood thinners. On arrival to the ER, she was tachycardic with a heart rateof 115 and hypotensive with systolic blood pressure 80s-90s. Her laboratory data was significant for severe anemia with hemoglobin of 6.0 and hematocrit of 17.9. In addition, she was in renal failure with a BUN of 66 and creatinine 2.12, and hyperkalemic with potassium level of 6.1. Due to her abdominal pain, a CT scan of the abdomen andpelvis was obtained, which showed bilateral ureteral stents with some interval improvement of bilateral hydronephrosis compared to 03/03/2018 study. She also has evidence of fluid and air collection within the left hemipelvis, which is unchanged in appearance compared to previous examination. The patient has retroperitoneal lymphadenopathy and stable left pulmonary nodule. In the ER, she was given 2 liters of crystalloids and 3 units of packed red blood cells have been ordered. The patient was seen by GI service and plan is to proceed with upper endoscopy in the morning. The patient is on room air oxygen with a saturation of 98-100% and last blood pressure 94/50 with a MAP of 64. She denies any chest pain, shortness of breath, cough or any constitutional symptoms. 03/17: Continued gastrointestinal blood loss, likely upper source. Episodic hypotension. Some electrolytes imbalance this morning, being corrected. Starting fifth unit of packed red blood cells now. Protonix drip infusing. Plan for upper endoscopy today. 03/18: Hemoglobin and vital signs stable overnight. No evidence of continued bleeding. GI service plans repeat endoscopy after a period of time allowing clot to dissolve in the stomach. Renal function remains acceptable. 10-8 TRANSFERRED TO OUR SERVICE TODAY FOR EGD LATER TODAY STILL NPO AT THIS TIME AM LABS STILL TAKING MORPHINE FOR PAIN BUT HAVING BORDERLINE BLOOD PRESSURE SO IS GETTING SPARINGLY AT THIS TIME PT AND OT HYPOMAGNESIA WILL REPLACE DW RN AND PT AND FAMILY 10-9 LARGE ULCER IN STOMACH 2X3CM DIET PER GI ADVANCE SLOWLY AM LABS INCREASE ACTIVITY MOVE OUT OF ICUS PAIN CONTROL DW RN AND PT AND GI Physical Exam Vital signs: Vital Signs 03/19/18 14:00 03/19/18 14:40 03/19/18 15:54 Temperature Pulse Rate 90 90 Respiratory Rate 16 16 Blood Pressure Pulse Oximetry 03/19/18 16:00 03/19/18 18:00 03/19/18 19:14 Temperature 98.3 F Pulse Rate 99 H 89 98 H Respiratory Rate 15 15 Blood Pressure 110/61 Pulse Oximetry 100 100 03/19/18 20:00 03/19/18 22:00 03/20/18 00:00 Temperature 98.3 F 99.2 F Pulse Rate 106 H 106 H 84 Respiratory Rate 18 18 Blood Pressure 106/59 L 120/62 Pulse Oximetry 100 100 03/20/18 00:04 03/20/18 02:00 03/20/18 04:00 Temperature 98.7 F Pulse Rate 84 96 H 96 H Respiratory Rate 20 22 Blood Pressure 102/57 L Pulse Oximetry 100 03/20/18 04:23 03/20/18 06:00 03/20/18 08:00 Temperature 99 F Pulse Rate 99 H 99 H 92 H Respiratory Rate 20 18 Blood Pressure 106/63 Pulse Oximetry 100 03/20/18 09:09 03/20/18 09:15 03/20/18 10:00 Temperature Pulse Rate 86 104 H Respiratory Rate 14 16 Blood Pressure Pulse Oximetry 100 03/20/18 12:00 Temperature Pulse Rate 95 H Respiratory Rate Blood Pressure Pulse Oximetry Intake & Output 03/19/18 03/20/18 03/20/18 18:59 06:59 18:59 Intake Total 1920 / 1920 2160 / 2160 1000 / 1000 Output Total 1000 / 1000 1325 / 1325 Balance 920 / 920 835 / 835 1000 / 1000 Weight 75.6 kg Intake: IV 1300 / 1300 1200 / 1200 1000 / 1000 Protonix Inj 80 MG In NS Inj 100 / 100 200 / 200 100 ML @ 10 mls/hr IV.CONT CONT SAMANTHA Rx#:[id number] NS Inj 1,000 ML @ 125 mls/hr IV 1000 / 1000 1000 / 1000 1000 / 1000 .CONT .Q8H SAMANTHA Rx#:[id number] Magnesium Sulfate Inj 4 GM In 100 / 100 NS Inj 92 ML @ 25 mls/hr IV.SIG ONCE ONE Rx#:[id number] Rocephin Inj 1,000 MG In NS Inj 100 / 100 100 ML @ 200 mls/hr IV.SIG Q24H SAMANTHA Rx#:[id number] Oral 420 / 420 960 / 960 Anesthesia Amount 200 / 200 Output: Stool 0 / 0 Urine Amount (Catheter) 1000 / 1000 1325 / 1325 PUREWIC 1000 / 1000 1325 / 1325 Other: # Urine Diapers 1 Date of Last Bowel Movement 03/17/18 03/17/18 03/17/18 Narrative: GENERAL: Awake alert and oriented x3 talkative and cooperative --appears to be in mild distress SKIN: Warm and dry. HEAD: Atraumatic. Normocephalic. EYES: Pupils equal and round. No scleral icterus. No injection or drainage. EOMI ENT: No nasal bleeding or discharge. Mucous membranes pink and moist. Tongue is midline NECK: Trachea midline. No JVD. Neck is supple CARDIOVASCULAR: Regular rate and rhythm. S1-S2 no S3 or S4 RESPIRATORY: No accessory muscle use. Clear to auscultation. Breath sounds equal bilaterally. GASTROINTESTINAL: Abdomen soft, non-tender, nondistended. Hepatic and splenic margins not palpable. MUSCULOSKELETAL: Extremities without clubbing, cyanosis, or edema. No obvious deformities. NEUROLOGICAL: Awake and alert. No obvious cranial nerve deficits. Motor grossly within normal limits. Five out of 5 muscle strength in the arms and legs. Normal speech. PSYCHIATRIC: Appropriate mood and affect; insight and judgment normal. - Urinary Catheter Management Straight Cath placed during this visit: yes, but has since been removed by the nurse Reason for continuing: Not indwelling catheter Insertion date: 03/16/18 Insertion time: 13:02 Removal date: 03/16/18 Removal time: 12:04 PUREWIC Cath placed during this visit: no Results - Labs CBC & Chem 7: 03/20/18 05:00 03/20/18 05:00 Laboratory Results - last 24 hr 03/19/18 03/19/18 03/19/18 05:05 12:20 13:28 WBC RBC Hgb 8.8 L Hct 25.5 L MCV MCH MCHC RDW Plt Count MPV Neut % (Auto) Lymph % (Auto) [place] % (Auto) Eos % (Auto) Baso % (Auto) Neut # (Auto) Lymph # (Auto) [place] # (Auto) Eos # (Auto) Baso # (Auto) WBC Differential Differential Comment PT INR Sodium Potassium Chloride Carbon Dioxide Anion Gap BUN Creatinine Estimated GFR POC Glucose 99 Random Glucose Hemoglobin A1c 5.9 Calcium Prot Corrected Calcium Phosphorus Magnesium Total Bilirubin AST ALT Alkaline Phosphatase Total Protein Albumin 03/19/18 03/19/18 03/19/18 17:24 19:00 23:39 WBC RBC Hgb 9.3 L Hct 27.7 L MCV MCH MCHC RDW Plt Count MPV Neut % (Auto) Lymph % (Auto) [place] % (Auto) Eos % (Auto) Baso % (Auto) Neut # (Auto) Lymph # (Auto) [place] # (Auto) Eos # (Auto) Baso # (Auto) WBC Differential Differential Comment PT INR Sodium Potassium Chloride Carbon Dioxide Anion Gap BUN Creatinine Estimated GFR POC Glucose 146 H 194 H Random Glucose Hemoglobin A1c Calcium Prot Corrected Calcium Phosphorus Magnesium Total Bilirubin AST ALT Alkaline Phosphatase Total Protein Albumin 03/19/18 03/20/18 03/20/18 23:50 05:00 05:00 WBC 6.2 RBC 2.58 L Hgb 8.3 L 8.4 L Hct 23.8 L 24.4 L MCV 94.4 MCH 32.5 MCHC 34.4 RDW 15.0 Plt Count 124 L MPV 6.5 L Neut % (Auto) 87.5 H Lymph % (Auto) 5.4 L [place] % (Auto) 6.6 Eos % (Auto) 0.3 Baso % (Auto) 0.2 Neut # (Auto) 5.4 Lymph # (Auto) 0.3 L [place] # (Auto) 0.4 Eos # (Auto) 0.0 Baso # (Auto) 0.0 WBC Differential . Differential Comment Auto diff final PT 10.9 INR 1.1 Sodium Potassium Chloride Carbon Dioxide Anion Gap BUN Creatinine Estimated GFR POC Glucose Random Glucose Hemoglobin A1c Calcium Prot Corrected Calcium Phosphorus Magnesium Total Bilirubin AST ALT Alkaline Phosphatase Total Protein Albumin 03/20/18 03/20/18 05:00 11:39 WBC RBC Hgb Hct MCV MCH MCHC RDW Plt Count MPV Neut % (Auto) Lymph % (Auto) [place] % (Auto) Eos % (Auto) Baso % (Auto) Neut # (Auto) Lymph # (Auto) [place] # (Auto) Eos # (Auto) Baso # (Auto) WBC Differential Differential Comment PT INR Sodium 142 Potassium 3.7 Chloride 112 H Carbon Dioxide 17.5 L Anion Gap 13 BUN 16 Creatinine 1.00 Estimated GFR 68 L POC Glucose 107 Random Glucose 139 H Hemoglobin A1c Calcium 7.4 L* Prot Corrected Calcium 8.2 L Phosphorus 2.7 Magnesium 1.8 Total Bilirubin 0.2 AST 11 L ALT 12 Alkaline Phosphatase 99 Total Protein 5.6 L Albumin 1.7 L - Procedures EGD PROCEDURE REPORT EXAM DATE: 03/17/2018 PATIENT NAME: Morgan Salmeron MR #: [id number] BIRTHDATE: 1955 ATTENDING: Bailey Trevizo MD ORDER #: [id number] STUDY HALL SUPERVISOR: Kennedy Cabello and Keyanna Lubin STATUS: inpatient INDICATIONS: The patient is a 62 yr old female here for an EGD due to acute post hemorrhagic anemia and melena PROCEDURE PERFORMED: EGD w/ ablation MEDICATIONS: None and Per Anesthesia. TOPICAL ANESTHETIC: CONSENT: The patient understands the risks and benefits of the procedure and understands that these risks include, but are not limited to: sedation, allergic reaction, infection, perforation and/or bleeding. Alternative means of evaluation and treatment include, among others: physical exam, x-rays, and/or surgical intervention. The patient elects to proceed with this endoscopic procedure. medical equipment was checked for proper function. Hand hygiene and appropriate measures for infection prevention was taken. After the risks, benefits and alternatives of the procedure were thoroughly explained, Informed consent was verified, confirmed and timeout was successfully executed by the treatment team. The patient was anesthetized with topical anesthesia and the Pentax EG-[id number] endoscope was introduced through the mouth and advanced to the first portion of the duodenum. Retroflexed views revealed large blood clot The gastroscope was then slowly withdrawn and removed. ESOPHAGUS: The mucosa of the esophagus appeared normal. STOMACH: Large blood clot covering 2/3rds of the stomach. No active bleeding. Suctioned as much as possible. DUODENUM: A large non-bleeding non-bleeding and shallow ulcer, ranging between 5-9mm in size, with surrounding edema, a pigmented spot and an adherent clot was found in the duodenal bulb. Argon plasma coagulation was applied to the site. With complete hemostasis achieved. ADVERSE EVENTS: There were no complications. IMPRESSIONS: 1. The esophagus appeared normal 2. Large blood clot covering 2/3rds of the stomach. No active bleeding. Suctioned as much as possible 3. Large non-bleeding ulcer, ranging between 5-9mm in size, was found in the duodenal bulb; Argon plasma coagulation was applied to the site; with complete hemostasis achieved 4. Retroflexed views revealed large blood clot RECOMMENDATIONS: 1. Continue PPI 2. Monitor in ICU, transfuse as needed. Clear liquid diet. IV reglan. REpeat egd tomorrow or monday depending upon clinical course. PATIENT CONDITION: stable DISPOSITION: Inpatient REPEAT EXAM: Return 1 day EGD Bailey Trevizo MD eSigned: Bailey Trevizo MD 03/17/2018 1:48 PM EGD PROCEDURE REPORT EXAM DATE: 03/19/2018 PATIENT NAME: Morgan Salmeron MR #: [id number] BIRTHDATE: 1955 ATTENDING: Bailey Trevizo MD ORDER #: [id number] STUDY HALL SUPERVISOR: Alberto Padilla Pena, Gabriela, and Guillermina Potter STATUS: inpatient INDICATIONS: The patient is a 62 yr old female here for an EGD due to acute post hemorrhagic anemia PROCEDURE PERFORMED: EGD, diagnostic MEDICATIONS: None and Per Anesthesia. TOPICAL ANESTHETIC: CONSENT: The patient understands the risks and benefits of the procedure and understands that these risks include, but are not limited to: sedation, allergic reaction, infection, perforation and/or bleeding. Alternative means of evaluation and treatment include, among others: physical exam, x-rays, and/or surgical intervention. The patient elects to proceed with this endoscopic procedure. medical equipment was checked for proper function. Hand hygiene and appropriate measures for infection prevention was taken. After the risks, benefits and alternatives of the procedure were thoroughly explained, Informed consent was verified, confirmed and timeout was successfully executed by the treatment team. The patient was anesthetized with topical anesthesia and the Pentax EG-[id number] endoscope was introduced through the mouth and advanced to the second portion of the duodenum. Retroflexed views revealed no abnormalities The gastroscope was then slowly withdrawn and removed. ESOPHAGUS: The mucosa of the esophagus appeared normal. STOMACH: Two large non-bleeding, deep and irregular shaped ulcers, measuring 20 x 30mm in size, with heaped up edges, an adherent clot and a pigmented spot were found in the gastric body, on the lesser curvature of the stomach, and in the gastric antrum. DUODENUM: Two non-bleeding, shallow and clean-based ulcers ranging between 3-5 mm in size were found in the 1st part of the duodenum. ADVERSE EVENTS: There were no complications. IMPRESSIONS: 1. The esophagus appeared normal 2. Two large ulcers, measuring 20 x 30mm in size, were found in the gastric body, on the lesser curvature of the stomach, and in the gastric antrum 3. Two ulcers ranging between 3-5 mm in size were found in the 1st part of the duodenum 4. Retroflexed views revealed no abnormalities RECOMMENDATIONS: 1. Anti-reflux regimen 2. Continue PPI 3. If rebleeds needs IR consultation with L gastric artery embolization PATIENT CONDITION: stable DISPOSITION: Inpatient REPEAT EXAM: Return 1 month EGD Bailey Trevizo MD eSigned: Bailey Trevizo MD 03/19/2018 12:13 PM Assessment and Plan - Plan IMPRESSION: 1. Gastrointestinal bleeding.--Had first EGD on 03-17 to have a repeat EGD on 8N HAS LARGE ULCER 2X3 CM 2. Severe anemia secondary to acute blood loss. 3. Acute renal failure. Slow improvement 4. Hyperkalemia. 5. Abdominal pain. 6. Urinary tract infection. On Rocephin 7. Metastatic cervical cancer.-Pain control is able to tolerate 8. History of hydronephrosis, status post bilateral ureteral stent placement. 9. History of hypertension.-Borderline blood pressure at this time 10. History of diabetes mellitus. 11. Hypomagnesia will replace-a.m. labs PLAN 1. Serial hemoglobin determination 2. Oxygen p.r.n. to maintain sats above 92%. 3. Bronchodilators in the form of DuoNeb. 4. Continue Protonix drip infusion 5. Pressors if needed. Monitor heart rate and blood pressure closely and maintain MAP greater than 65 mmHg. She was given 2 liters of crystalloids in the ED. We will continue with IV fluids, normal saline at 125 mL an hour. 6. Serial hemoglobin determination 7. Monitor renal function, intake and output, and avoid nephrotoxins. 10. Place on Rocephin for a urinary tract infection and monitor for signs of infection. 11. Sliding scale insulin with Accu-Cheks to maintain euglycemia. 12. Chemical anticoagulation prophylaxis contraindicated in the setting of GI bleed and severe anemia. 13. IV access. The patient has peripheral IV and left-sided port. 14 replace magnesium per low magnesium level replacement 15 had first EGD on 106 and will have repeat EGD on 108-SHOWED LARGE ULCER 2X3 CM INCREASE ACTIVITY DIET PER GI A.m. labs Discussed with RN and patient and family AND GI Code Status: FULL CODE Discussed Condition With: RN AND PT AND CM Discharge Planning: Pending improvement and stabilization of GI bleeding
[2018-03-20 13:19] LABS: Hematocrit 22.9 % (35.0-46.0); Hemoglobin 8.1 gm/dL (11.6-15.3)
--- NOTE | 2018-03-20 14:34 | P.PNGS ---
Subjective Interval history: Resting in bed Cousin at bedside No further bleeding Physical Exam Vital signs: Vital Signs 03/19/18 14:40 03/19/18 15:54 03/19/18 16:00 Temperature 98.3 F Pulse Rate 90 99 H Respiratory Rate 16 16 15 Blood Pressure 110/61 Pulse Oximetry 100 03/19/18 18:00 03/19/18 19:14 03/19/18 20:00 Temperature 98.3 F Pulse Rate 89 98 H 106 H Respiratory Rate 15 18 Blood Pressure 106/59 L Pulse Oximetry 100 100 03/19/18 22:00 03/20/18 00:00 03/20/18 00:04 Temperature 99.2 F Pulse Rate 106 H 84 84 Respiratory Rate 18 20 Blood Pressure 120/62 Pulse Oximetry 100 03/20/18 02:00 03/20/18 04:00 03/20/18 04:23 Temperature 98.7 F Pulse Rate 96 H 96 H 99 H Respiratory Rate 22 20 Blood Pressure 102/57 L Pulse Oximetry 100 03/20/18 06:00 03/20/18 08:00 03/20/18 09:09 Temperature 99 F Pulse Rate 99 H 92 H 86 Respiratory Rate 18 14 Blood Pressure 106/63 Pulse Oximetry 100 100 03/20/18 09:15 03/20/18 10:00 03/20/18 12:00 Temperature 98.2 F Pulse Rate 104 H 95 H Respiratory Rate 16 16 Blood Pressure 88/50 L Pulse Oximetry 100 03/20/18 12:27 03/20/18 12:55 Temperature Pulse Rate 89 Respiratory Rate 18 16 Blood Pressure Pulse Oximetry Intake & Output 03/19/18 03/20/18 03/20/18 18:59 06:59 18:59 Intake Total 1920 / 1920 2160 / 2160 1000 / 1000 Output Total 1000 / 1000 1325 / 1325 Balance 920 / 920 835 / 835 1000 / 1000 Weight 75.6 kg Intake: IV 1300 / 1300 1200 / 1200 1000 / 1000 Protonix Inj 80 MG In NS Inj 100 / 100 200 / 200 100 ML @ 10 mls/hr IV.CONT CONT SAMANTHA Rx#:[id number] NS Inj 1,000 ML @ 125 mls/hr IV 1000 / 1000 1000 / 1000 1000 / 1000 .CONT .Q8H SAMANTHA Rx#:[id number] Magnesium Sulfate Inj 4 GM In 100 / 100 NS Inj 92 ML @ 25 mls/hr IV.SIG ONCE ONE Rx#:[id number] Rocephin Inj 1,000 MG In NS Inj 100 / 100 100 ML @ 200 mls/hr IV.SIG Q24H SAMANTHA Rx#:[id number] Oral 420 / 420 960 / 960 Anesthesia Amount 200 / 200 Output: Stool 0 / 0 Urine Amount (Catheter) 1000 / 1000 1325 / 1325 PUREWIC 1000 / 1000 1325 / 1325 Other: # Urine Diapers 1 Date of Last Bowel Movement 03/17/18 03/17/18 03/17/18 Narrative: Alert and awake Abd: non distended; mildly tender to palpation in the mid epigastric region - Urinary Catheter Management Straight Cath placed during this visit: yes, but has since been removed by the nurse Reason for continuing: Not indwelling catheter Insertion date: 03/16/18 Insertion time: 13:02 Removal date: 03/16/18 Removal time: 12:04 PUREWIC Cath placed during this visit: no Results - Labs 03/21/18 04:25 03/21/18 04:25 Laboratory Results - last 24 hr 03/19/18 03/19/18 03/19/18 05:05 17:24 19:00 WBC RBC Hgb 9.3 L Hct 27.7 L MCV MCH MCHC RDW Plt Count MPV Neut % (Auto) Lymph % (Auto) [place] % (Auto) Eos % (Auto) Baso % (Auto) Neut # (Auto) Lymph # (Auto) [place] # (Auto) Eos # (Auto) Baso # (Auto) WBC Differential Differential Comment PT INR Sodium Potassium Chloride Carbon Dioxide Anion Gap BUN Creatinine Estimated GFR POC Glucose 146 H Random Glucose Hemoglobin A1c 5.9 Calcium Prot Corrected Calcium Phosphorus Magnesium Total Bilirubin AST ALT Alkaline Phosphatase Total Protein Albumin 03/19/18 03/19/18 03/20/18 23:39 23:50 05:00 WBC 6.2 RBC 2.58 L Hgb 8.3 L 8.4 L Hct 23.8 L 24.4 L MCV 94.4 MCH 32.5 MCHC 34.4 RDW 15.0 Plt Count 124 L MPV 6.5 L Neut % (Auto) 87.5 H Lymph % (Auto) 5.4 L [place] % (Auto) 6.6 Eos % (Auto) 0.3 Baso % (Auto) 0.2 Neut # (Auto) 5.4 Lymph # (Auto) 0.3 L [place] # (Auto) 0.4 Eos # (Auto) 0.0 Baso # (Auto) 0.0 WBC Differential . Differential Comment Auto diff final PT INR Sodium Potassium Chloride Carbon Dioxide Anion Gap BUN Creatinine Estimated GFR POC Glucose 194 H Random Glucose Hemoglobin A1c Calcium Prot Corrected Calcium Phosphorus Magnesium Total Bilirubin AST ALT Alkaline Phosphatase Total Protein Albumin 03/20/18 03/20/18 03/20/18 05:00 05:00 11:39 WBC RBC Hgb Hct MCV MCH MCHC RDW Plt Count MPV Neut % (Auto) Lymph % (Auto) [place] % (Auto) Eos % (Auto) Baso % (Auto) Neut # (Auto) Lymph # (Auto) [place] # (Auto) Eos # (Auto) Baso # (Auto) WBC Differential Differential Comment PT 10.9 INR 1.1 Sodium 142 Potassium 3.7 Chloride 112 H Carbon Dioxide 17.5 L Anion Gap 13 BUN 16 Creatinine 1.00 Estimated GFR 68 L POC Glucose 107 Random Glucose 139 H Hemoglobin A1c Calcium 7.4 L* Prot Corrected Calcium 8.2 L Phosphorus 2.7 Magnesium 1.8 Total Bilirubin 0.2 AST 11 L ALT 12 Alkaline Phosphatase 99 Total Protein 5.6 L Albumin 1.7 L 03/20/18 11:40 WBC RBC Hgb 8.1 L Hct 22.9 L MCV MCH MCHC RDW Plt Count MPV Neut % (Auto) Lymph % (Auto) [place] % (Auto) Eos % (Auto) Baso % (Auto) Neut # (Auto) Lymph # (Auto) [place] # (Auto) Eos # (Auto) Baso # (Auto) WBC Differential Differential Comment PT INR Sodium Potassium Chloride Carbon Dioxide Anion Gap BUN Creatinine Estimated GFR POC Glucose Random Glucose Hemoglobin A1c Calcium Prot Corrected Calcium Phosphorus Magnesium Total Bilirubin AST ALT Alkaline Phosphatase Total Protein Albumin - Imaging Imaging: ITS Impressions Chest X-Ray 03/16/18 00:00 CONCLUSION: No acute cardiopulmonary disease. Abdomen/Pelvis CT 03/16/18 13:50 CONCLUSION: 1. Bilateral internal ureteral stents have been placed. There is some interval improvement of the bilateral hydronephrosis compared to 03/03/2018 but mild hydronephrosis is still noted bilaterally. The proximal loop of the right internal ureteral stent is located within the proximal ureter. The left internal ureteral stent appears to be more optimal in position with its proximal loop in the pelvicalyceal system. 2. Evidence of a fluid and air collection within the left hemipelvis which is unchanged in appearance compared to the previous examination and measures 6.0 x 4.1 cm. 3. The uterus is enlarged and extends into the left hemipelvis but is stable compared to the previous examination. 4. Stable left periaortic retroperitoneal lymphadenopathy. 5. Stable left pulmonary nodule measuring 8 mm. 6. Coronary artery calcifications are noted. 7. Degenerative changes and scoliosis of the thoracolumbar spine are noted. Assessment and Plan - Assessment (1) Upper GI bleed Code(s): K92.2 - Gastrointestinal hemorrhage, unspecified Status: Acute Plan: 62 year old female with GIB -No further bleeding reported -S/p EGD--- gastric ulcers -Diet per GI -Not tachycardic -Hmg 8.1; stable -GS will follow peripherally; if needed please call (2) Cervical cancer Code(s): C53.9 - Malignant neoplasm of cervix uteri, unspecified Status: Chronic - Attending Attestation The exam, history, and the medical decision-making described in the above note were completed with the assistance of the mid-level provider. I reviewed and agree with the findings presented. I attest that I had a [id number] encounter with the patient on the same day, and personally performed and documented my assessment and findings in the medical record. Upper GI bleed, stable abdominal exam non-surgical HH stable, will sign off, call if needed (2) Cervical cancer Qualifiers: Malignant neoplasm of cervix location: unspecified location Qualified Code(s) : C53.9 - Malignant neoplasm of cervix uteri, unspecified
--- NOTE | 2018-03-20 16:14 | P.PNGI ---
Subjective Interval history: Generalized weakness and fatigue nausea continues Generalized abdominal pain to light palpation, states unusual diarrhea on admission but no BM in 3 days <Latasha,Kayce M - Last Filed: 03/20/18 16:06> Physical Exam Vital signs: Vital Signs 03/19/18 18:00 03/19/18 19:14 03/19/18 20:00 Temperature 98.3 F Pulse Rate 89 98 H 106 H Respiratory Rate 15 18 Blood Pressure 106/59 L Pulse Oximetry 100 100 03/19/18 22:00 03/20/18 00:00 03/20/18 00:04 Temperature 99.2 F Pulse Rate 106 H 84 84 Respiratory Rate 18 20 Blood Pressure 120/62 Pulse Oximetry 100 03/20/18 02:00 03/20/18 04:00 03/20/18 04:23 Temperature 98.7 F Pulse Rate 96 H 96 H 99 H Respiratory Rate 22 20 Blood Pressure 102/57 L Pulse Oximetry 100 03/20/18 06:00 03/20/18 08:00 03/20/18 09:09 Temperature 99 F Pulse Rate 99 H 92 H 86 Respiratory Rate 18 14 Blood Pressure 106/63 Pulse Oximetry 100 100 03/20/18 09:15 03/20/18 10:00 03/20/18 12:00 Temperature 98.2 F Pulse Rate 104 H 95 H Respiratory Rate 16 16 Blood Pressure 88/50 L Pulse Oximetry 100 03/20/18 12:27 03/20/18 12:55 Temperature Pulse Rate 89 Respiratory Rate 18 16 Blood Pressure Pulse Oximetry Intake & Output 03/19/18 03/20/18 03/20/18 18:59 06:59 18:59 Intake Total 1920 / 1920 2160 / 2160 1000 / 1000 Output Total 1000 / 1000 1325 / 1325 Balance 920 / 920 835 / 835 1000 / 1000 Weight 75.6 kg Intake: IV 1300 / 1300 1200 / 1200 1000 / 1000 Protonix Inj 80 MG In NS Inj 100 / 100 200 / 200 100 ML @ 10 mls/hr IV.CONT CONT SAMANTHA Rx#:[id number] NS Inj 1,000 ML @ 125 mls/hr IV 1000 / 1000 1000 / 1000 1000 / 1000 .CONT .Q8H [facility] Rx#:[id number] Magnesium Sulfate Inj 4 GM In 100 / 100 NS Inj 92 ML @ 25 mls/hr IV.SIG ONCE ONE Rx#:[id number] Rocephin Inj 1,000 MG In NS Inj 100 / 100 100 ML @ 200 mls/hr IV.SIG Q24H [facility] Rx#:[id number] Oral 420 / 420 960 / 960 Anesthesia Amount 200 / 200 Output: Stool 0 / 0 Urine Amount (Catheter) 1000 / 1000 1325 / 1325 PUREWIC 1000 / 1000 1325 / 1325 Other: # Urine Diapers 1 Date of Last Bowel Movement 03/17/18 03/17/18 03/17/18 - Constitutional moderate distress, cachectic, chronically ill appearing - Routine HEENT Exam ENT: Present: mucous membranes dry - Routine Cardiovascular Exam Present: S1, S2 - Routine Abdominal Exam Present: distended (Mild distention hypoactive , minimal bowel sounds, taut) - Urinary Catheter Management Straight Cath placed during this visit: yes, but has since been removed by the nurse Reason for continuing: Not indwelling catheter Insertion date: 03/16/18 Insertion time: 13:02 Removal date: 03/16/18 Removal time: 12:04 PUREWIC Cath placed during this visit: no <Kayce Pagan - Last Filed: 03/20/18 16:06> Vital signs: Vital Signs 03/19/18 18:00 03/19/18 19:14 03/19/18 20:00 Temperature 98.3 F Pulse Rate 89 98 H 106 H Respiratory Rate 15 18 Blood Pressure 106/59 L Pulse Oximetry 100 100 03/19/18 22:00 03/20/18 00:00 03/20/18 00:04 Temperature 99.2 F Pulse Rate 106 H 84 84 Respiratory Rate 18 20 Blood Pressure 120/62 Pulse Oximetry 100 03/20/18 02:00 03/20/18 04:00 03/20/18 04:23 Temperature 98.7 F Pulse Rate 96 H 96 H 99 H Respiratory Rate 22 20 Blood Pressure 102/57 L Pulse Oximetry 100 03/20/18 06:00 03/20/18 08:00 03/20/18 09:09 Temperature 99 F Pulse Rate 99 H 92 H 86 Respiratory Rate 18 14 Blood Pressure 106/63 Pulse Oximetry 100 100 03/20/18 09:15 03/20/18 10:00 03/20/18 12:00 Temperature 98.2 F Pulse Rate 104 H 95 H Respiratory Rate 16 16 Blood Pressure 88/50 L Pulse Oximetry 100 03/20/18 12:27 03/20/18 12:55 03/20/18 14:00 Temperature Pulse Rate 89 104 H Respiratory Rate 18 16 Blood Pressure Pulse Oximetry 03/20/18 14:23 03/20/18 16:00 Temperature Pulse Rate 97 H Respiratory Rate 18 18 Blood Pressure Pulse Oximetry Intake & Output 03/19/18 03/20/18 03/20/18 18:59 06:59 18:59 Intake Total 1920 / 1920 2160 / 2160 1000 / 1000 Output Total 1000 / 1000 1325 / 1325 Balance 920 / 920 835 / 835 1000 / 1000 Weight 75.6 kg Intake: IV 1300 / 1300 1200 / 1200 1000 / 1000 Protonix Inj 80 MG In NS Inj 100 / 100 200 / 200 100 ML @ 10 mls/hr IV.CONT CONT [facility] Rx#:[id number] NS Inj 1,000 ML @ 125 mls/hr IV 1000 / 1000 1000 / 1000 1000 / 1000 .CONT .Q8H [facility] Rx#:[id number] Magnesium Sulfate Inj 4 GM In 100 / 100 NS Inj 92 ML @ 25 mls/hr IV.SIG ONCE ONE Rx#:[id number] Rocephin Inj 1,000 MG In NS Inj 100 / 100 100 ML @ 200 mls/hr IV.SIG Q24H [facility] Rx#:[id number] Oral 420 / 420 960 / 960 Anesthesia Amount 200 / 200 Output: Stool 0 / 0 Urine Amount (Catheter) 1000 / 1000 1325 / 1325 PUREWIC 1000 / 1000 1325 / 1325 Other: # Urine Diapers 1 Date of Last Bowel Movement 03/17/18 03/17/18 03/17/18 - Urinary Catheter Management Straight Cath placed during this visit: no PUREWIC Cath placed during this visit: no <Bailey Trevizo - Last Filed: 03/20/18 17:06> Results - Labs CBC & Chem 7: 03/20/18 11:40 03/20/18 05:00 Laboratory Results - last 24 hr 03/19/18 03/19/18 03/19/18 05:05 17:24 19:00 WBC RBC Hgb 9.3 L Hct 27.7 L MCV MCH MCHC RDW Plt Count MPV Neut % (Auto) Lymph % (Auto) [place] % (Auto) Eos % (Auto) Baso % (Auto) Neut # (Auto) Lymph # (Auto) [place] # (Auto) Eos # (Auto) Baso # (Auto) WBC Differential Differential Comment PT INR Sodium Potassium Chloride Carbon Dioxide Anion Gap BUN Creatinine Estimated GFR POC Glucose 146 H Random Glucose Hemoglobin A1c 5.9 Calcium Prot Corrected Calcium Phosphorus Magnesium Total Bilirubin AST ALT Alkaline Phosphatase Total Protein Albumin 03/19/18 03/19/18 03/20/18 23:39 23:50 05:00 WBC 6.2 RBC 2.58 L Hgb 8.3 L 8.4 L Hct 23.8 L 24.4 L MCV 94.4 MCH 32.5 MCHC 34.4 RDW 15.0 Plt Count 124 L MPV 6.5 L Neut % (Auto) 87.5 H Lymph % (Auto) 5.4 L [place] % (Auto) 6.6 Eos % (Auto) 0.3 Baso % (Auto) 0.2 Neut # (Auto) 5.4 Lymph # (Auto) 0.3 L [place] # (Auto) 0.4 Eos # (Auto) 0.0 Baso # (Auto) 0.0 WBC Differential . Differential Comment Auto diff final PT INR Sodium Potassium Chloride Carbon Dioxide Anion Gap BUN Creatinine Estimated GFR POC Glucose 194 H Random Glucose Hemoglobin A1c Calcium Prot Corrected Calcium Phosphorus Magnesium Total Bilirubin AST ALT Alkaline Phosphatase Total Protein Albumin 03/20/18 03/20/18 03/20/18 05:00 05:00 11:39 WBC RBC Hgb Hct MCV MCH MCHC RDW Plt Count MPV Neut % (Auto) Lymph % (Auto) [place] % (Auto) Eos % (Auto) Baso % (Auto) Neut # (Auto) Lymph # (Auto) [place] # (Auto) Eos # (Auto) Baso # (Auto) WBC Differential Differential Comment PT 10.9 INR 1.1 Sodium 142 Potassium 3.7 Chloride 112 H Carbon Dioxide 17.5 L Anion Gap 13 BUN 16 Creatinine 1.00 Estimated GFR 68 L POC Glucose 107 Random Glucose 139 H Hemoglobin A1c Calcium 7.4 L* Prot Corrected Calcium 8.2 L Phosphorus 2.7 Magnesium 1.8 Total Bilirubin 0.2 AST 11 L ALT 12 Alkaline Phosphatase 99 Total Protein 5.6 L Albumin 1.7 L 03/20/18 11:40 WBC RBC Hgb 8.1 L Hct 22.9 L MCV MCH MCHC RDW Plt Count MPV Neut % (Auto) Lymph % (Auto) [place] % (Auto) Eos % (Auto) Baso % (Auto) Neut # (Auto) Lymph # (Auto) [place] # (Auto) Eos # (Auto) Baso # (Auto) WBC Differential Differential Comment PT INR Sodium Potassium Chloride Carbon Dioxide Anion Gap BUN Creatinine Estimated GFR POC Glucose Random Glucose Hemoglobin A1c Calcium Prot Corrected Calcium Phosphorus Magnesium Total Bilirubin AST ALT Alkaline Phosphatase Total Protein Albumin - Procedures EGD PROCEDURE REPORT EXAM DATE: 03/17/2018 PATIENT NAME: Morgan Salmeron MR #: [id number] BIRTHDATE: 1955 ATTENDING: Bailey Trevizo MD ORDER #: [id number] COATING MIXER TENDER: Kennedy Cabello and Keyanna Lubin STATUS: inpatient INDICATIONS: The patient is a 62 yr old female here for an EGD due to acute post hemorrhagic anemia and melena PROCEDURE PERFORMED: EGD w/ ablation MEDICATIONS: None and Per Anesthesia. TOPICAL ANESTHETIC: CONSENT: The patient understands the risks and benefits of the procedure and understands that these risks include, but are not limited to: sedation, allergic reaction, infection, perforation and/or bleeding. Alternative means of evaluation and treatment include, among others: physical exam, x-rays, and/or surgical intervention. The patient elects to proceed with this endoscopic procedure. medical equipment was checked for proper function. Hand hygiene and appropriate measures for infection prevention was taken. After the risks, benefits and alternatives of the procedure were thoroughly explained, Informed consent was verified, confirmed and timeout was successfully executed by the treatment team. The patient was anesthetized with topical anesthesia and the SkySpecsax EG-2990i endoscope was introduced through the mouth and advanced to the first portion of the duodenum. Retroflexed views revealed large blood clot The gastroscope was then slowly withdrawn and removed. ESOPHAGUS: The mucosa of the esophagus appeared normal. STOMACH: Large blood clot covering 2/3rds of the stomach. No active bleeding. Suctioned as much as possible. DUODENUM: A large non-bleeding non-bleeding and shallow ulcer, ranging between 5-9mm in size, with surrounding edema, a pigmented spot and an adherent clot was found in the duodenal bulb. Argon plasma coagulation was applied to the site. With complete hemostasis achieved. ADVERSE EVENTS: There were no complications. IMPRESSIONS: 1. The esophagus appeared normal 2. Large blood clot covering 2/3rds of the stomach. No active bleeding. Suctioned as much as possible 3. Large non-bleeding ulcer, ranging between 5-9mm in size, was found in the duodenal bulb; Argon plasma coagulation was applied to the site; with complete hemostasis achieved 4. Retroflexed views revealed large blood clot RECOMMENDATIONS: 1. Continue PPI 2. Monitor in ICU, transfuse as needed. Clear liquid diet. IV reglan. REpeat egd tomorrow or monday depending upon clinical course. PATIENT CONDITION: stable DISPOSITION: Inpatient REPEAT EXAM: Return 1 day EGD Bailey Trevizo MD eSigned: Bailey Trevizo MD 03/17/2018 1:48 PM EGD PROCEDURE REPORT EXAM DATE: 03/19/2018 PATIENT NAME: Morgan Salmeron MR #: [id number] BIRTHDATE: 1955 ATTENDING: Bailey Trevizo MD ORDER #: [id number] COATING MIXER TENDER: Alberto Padilla Pena, Gabriela, and Guillermina Potter STATUS: inpatient INDICATIONS: The patient is a 62 yr old female here for an EGD due to acute post hemorrhagic anemia PROCEDURE PERFORMED: EGD, diagnostic MEDICATIONS: None and Per Anesthesia. TOPICAL ANESTHETIC: CONSENT: The patient understands the risks and benefits of the procedure and understands that these risks include, but are not limited to: sedation, allergic reaction, infection, perforation and/or bleeding. Alternative means of evaluation and treatment include, among others: physical exam, x-rays, and/or surgical intervention. The patient elects to proceed with this endoscopic procedure. medical equipment was checked for proper function. Hand hygiene and appropriate measures for infection prevention was taken. After the risks, benefits and alternatives of the procedure were thoroughly explained, Informed consent was verified, confirmed and timeout was successfully executed by the treatment team. The patient was anesthetized with topical anesthesia and the Pentax EG-[id number] endoscope was introduced through the mouth and advanced to the second portion of the duodenum. Retroflexed views revealed no abnormalities The gastroscope was then slowly withdrawn and removed. ESOPHAGUS: The mucosa of the esophagus appeared normal. STOMACH: Two large non-bleeding, deep and irregular shaped ulcers, measuring 20 x 30mm in size, with heaped up edges, an adherent clot and a pigmented spot were found in the gastric body, on the lesser curvature of the stomach, and in the gastric antrum. DUODENUM: Two non-bleeding, shallow and clean-based ulcers ranging between 3-5 mm in size were found in the 1st part of the duodenum. ADVERSE EVENTS: There were no complications. IMPRESSIONS: 1. The esophagus appeared normal 2. Two large ulcers, measuring 20 x 30mm in size, were found in the gastric body, on the lesser curvature of the stomach, and in the gastric antrum 3. Two ulcers ranging between 3-5 mm in size were found in the 1st part of the duodenum 4. Retroflexed views revealed no abnormalities RECOMMENDATIONS: 1. Anti-reflux regimen 2. Continue PPI 3. If rebleeds needs IR consultation with L gastric artery embolization PATIENT CONDITION: stable DISPOSITION: Inpatient REPEAT EXAM: Return 1 month EGD Bailey Trevizo MD eSigned: Bailey Trevizo MD 03/19/2018 12:13 PM <Kayce Pagan - Last Filed: 03/20/18 16:06> - Labs CBC & Chem 7: 03/20/18 11:40 03/20/18 05:00 Laboratory Results - last 24 hr 03/19/18 03/19/18 03/19/18 05:05 17:24 19:00 WBC RBC Hgb 9.3 L Hct 27.7 L MCV MCH MCHC RDW Plt Count MPV Neut % (Auto) Lymph % (Auto) [place] % (Auto) Eos % (Auto) Baso % (Auto) Neut # (Auto) Lymph # (Auto) [place] # (Auto) Eos # (Auto) Baso # (Auto) WBC Differential Differential Comment PT INR Sodium Potassium Chloride Carbon Dioxide Anion Gap BUN Creatinine Estimated GFR POC Glucose 146 H Random Glucose Hemoglobin A1c 5.9 Calcium Prot Corrected Calcium Phosphorus Magnesium Total Bilirubin AST ALT Alkaline Phosphatase Total Protein Albumin 03/19/18 03/19/18 03/20/18 23:39 23:50 05:00 WBC 6.2 RBC 2.58 L Hgb 8.3 L 8.4 L Hct 23.8 L 24.4 L MCV 94.4 MCH 32.5 MCHC 34.4 RDW 15.0 Plt Count 124 L MPV 6.5 L Neut % (Auto) 87.5 H Lymph % (Auto) 5.4 L [place] % (Auto) 6.6 Eos % (Auto) 0.3 Baso % (Auto) 0.2 Neut # (Auto) 5.4 Lymph # (Auto) 0.3 L [place] # (Auto) 0.4 Eos # (Auto) 0.0 Baso # (Auto) 0.0 WBC Differential . Differential Comment Auto diff final PT INR Sodium Potassium Chloride Carbon Dioxide Anion Gap BUN Creatinine Estimated GFR POC Glucose 194 H Random Glucose Hemoglobin A1c Calcium Prot Corrected Calcium Phosphorus Magnesium Total Bilirubin AST ALT Alkaline Phosphatase Total Protein Albumin 03/20/18 03/20/18 03/20/18 05:00 05:00 11:39 WBC RBC Hgb Hct MCV MCH MCHC RDW Plt Count MPV Neut % (Auto) Lymph % (Auto) [place] % (Auto) Eos % (Auto) Baso % (Auto) Neut # (Auto) Lymph # (Auto) [place] # (Auto) Eos # (Auto) Baso # (Auto) WBC Differential Differential Comment PT 10.9 INR 1.1 Sodium 142 Potassium 3.7 Chloride 112 H Carbon Dioxide 17.5 L Anion Gap 13 BUN 16 Creatinine 1.00 Estimated GFR 68 L POC Glucose 107 Random Glucose 139 H Hemoglobin A1c Calcium 7.4 L* Prot Corrected Calcium 8.2 L Phosphorus 2.7 Magnesium 1.8 Total Bilirubin 0.2 AST 11 L ALT 12 Alkaline Phosphatase 99 Total Protein 5.6 L Albumin 1.7 L 03/20/18 11:40 WBC RBC Hgb 8.1 L Hct 22.9 L MCV MCH MCHC RDW Plt Count MPV Neut % (Auto) Lymph % (Auto) [place] % (Auto) Eos % (Auto) Baso % (Auto) Neut # (Auto) Lymph # (Auto) [place] # (Auto) Eos # (Auto) Baso # (Auto) WBC Differential Differential Comment PT INR Sodium Potassium Chloride Carbon Dioxide Anion Gap BUN Creatinine Estimated GFR POC Glucose Random Glucose Hemoglobin A1c Calcium Prot Corrected Calcium Phosphorus Magnesium Total Bilirubin AST ALT Alkaline Phosphatase Total Protein Albumin <Bailey Trevizo - Last Filed: 03/20/18 17:06> Assessment and Plan - Plan Symptomatic anemia, symptoms of melena stools Uncontrolled mid upper abdominal pain, aggregating factors probably daily NSAIDs patient was using for pain. No history of GI bleeding, questionable recent EGD but unknown timing or events History of metastatic cervical cancer with current weekly chemotherapy treatments been done Hypotension probably secondary to #1 According to the record recent history of SBO 03/18/18 -patient reports generalized fatigue. Hemoglobin 9.0 hematocrit 26.0. Patient denies any noted bleeding denies having BM today. No active bleeding denies nausea vomiting. Plan for repeat EGD in the morning. 03/20/2018. Patient is resting in the bed head of the bed elevated 45 degrees but still appears very weak with generalized malaise. Cousin in the room with her and discussed with both patient and cousin the findings of EGD with APC that was done on 03/19/2018. Findings include 2 large ulcers in the gastric body and the duodenum. Will need to continue on PPI and repeat EGD in 1 month. Discussed dietary recommendations with no greasy spicy foods, and recommend cardiac precautions with low sodium. Patient initially noted diarrhea stools when she came in but now no bowel movement since admission day 3. Abdomen appears taut with some generalized abdominal discomfort. Will check KUB to rule out any ileus or acute findings. Current hemoglobin 8.4 Plan Diet, remain clear liquids for now Biopsies pending, plan to repeat EGD in 1 month KUB PPI drip continue for now Monitor labs with special attention to hemoglobin and any obvious bleeding, transfuse as needed Bowel regimen as needed Encouraged hydration Supportive care Patient was seen per myself and Dr. Trevizo, note was written on his behalf <Kayce Pagan - Last Filed: 03/20/18 16:06> - Plan Seen and examined with HAND WRAPPER OPERATOR, no bleeding reported. Multiple large ulcers. No Nsaids. Advance diet. Repeat egd as recommended. IR with embolization if rebleeds. GI will sign off. Thank you <Bailey Trevizo - Last Filed: 03/20/18 17:06>
--- NOTE | 2018-03-20 17:18 | XR ---
EXAM DATE: 03/20/2018 12:00 AM EDT AGE/SEX: 62 years / Female INDICATIONS: Ileus. CLINICAL DATA: This is the patient's subsequent encounter. Patient reports that signs and symptoms h ave been present for 4 - 6 days and indicates a pain score of Nonresponsive. MEDICAL/SURGICAL HISTORY: . Deep venous thrombosis. Metastatic disease. Carcinoma, cervical. As thma, hypertension, diabetes, hydronephrosis, pelvic mass. None. COMPARISON: [facility] [place], [facility], 03/04/2018. . FINDINGS: The bowel gas pattern is nonspecific with multiple mildly to moderately dilated loops of small and l arge bowel with air. Air can be traced all the way down to the rectum. The lung bases are grossly torsten ar. There are bilateral double-J stents in place. The bony structures are grossly intact and stable c ompared to the prior study. CONCLUSION: Nonspecific bowel gas pattern with some mildly to moderately dilated loops of small and large bowel w ith air. This can be seen with an ileus. Bilateral double-J stents in place. Electronically signed by: Joaquín Leonard MD 03/20/2018 5:16 PM EDT
[2018-03-21] MEDS: Pantoprazole Inj 80 MG in Sodium Chlor 0.9% Inj 100 ML IV.CONT SCH ×2 (02:44→13:05)
[2018-03-21] MEDS: Morphine Sulfate Inj 2 MG/ML Vial IV.PUSH PRN ×4 (04:13→20:59)
[2018-03-21] MEDS: Sod Chloride 0.9% Inj 1,000 ML IV.CONT SCH ×5 (04:13→23:58)
[2018-03-21] MEDS: Chlorhexidine Gluconate 2% 1 Pack (2 Cloths) TOPICAL SCH (04:14)
[2018-03-21 05:46] LABS: Baso % (Auto) 0.3 % (0.0-2.0); Eos % (Auto) 0.5 % (0.0-4.0); Hematocrit 23.6 % (35.0-46.0); Hemoglobin 8.3 gm/dL (11.6-15.3); Lymph # (Auto) 0.3 th/mm3 (1.0-4.8); Lymph % (Auto) 7.1 % (9.0-44.0); Mean Corpuscular HGB Conc 35.2 % (32.0-36.0); Mean Corpuscular Hemoglobin 32.9 pg (27.0-34.0); Mean Corpuscular Volume 93.4 fL (80.0-100.0); Mean Platelet Volume 6.9 fL (7.0-11.0); Mono # (Auto) 0.4 th/mm3 (0.0-0.9); Mono % (Auto) 8.8 % (0.0-8.0); Neut # (Auto) 3.7 th/mm3 (1.8-7.7); Neut % (Auto) 83.3 % (16.0-70.0); Platelet Count 118 th/mm3 (150-450); Red Blood Count 2.53 mil/mm3 (4.00-5.30); Red Cell Distribution Width 15.3 % (11.6-17.2); White Blood Count 4.5 th/mm3 (4.0-11.0)
[2018-03-21 05:57] LABS: INR 1.1 Ratio; Prothrombin Time 10.9 sec (9.8-11.6)
[2018-03-21 06:08] LABS: Albumin 1.7 g/dL (3.4-5.0); Anion Gap 9 meq/L (5-15); Aspartate Aminotransferase 10 U/L (15-37); Blood Urea Nitrogen 12 mg/dL (7-18); Calcium 7.9 mg/dL (8.5-10.1); Carbon Dioxide 17.3 meq/L (21.0-32.0); Chloride 113 meq/L (98-107); Glomerular Filtration Rate 60 mL/min (>89); Glucose,Random 96 mg/dL (74-106); Magnesium 1.4 mg/dL (1.5-2.5); Potassium 3.7 meq/L (3.5-5.1); Sodium 139 meq/L (136-145)
[2018-03-21] MEDS: Insulin NovoLIN Regular Correctional Sugar Inj SQ SCH ×3 (06:10→18:15)
[2018-03-21 06:12] LABS: Alanine Aminotransferase 13 U/L (10-53); Alkaline Phosphatase 102 U/L (45-117); Phosphorus 2.7 mg/dL (2.5-4.9); Total Protein 5.7 g/dL (6.4-8.2)
[2018-03-21] MEDS: Sodium Chloride 0.9% 2 ML Flush BID IV.FLUSH SCH ×2 (08:53→20:59)
--- NOTE | 2018-03-21 09:55 | P.PNIM ---
Subjective Interval history: The patient is a 62-year-old female with past medical history of metastatic cervical cancer, diabetes mellitus, hypertension, bronchialasthma, who presented to [facility] this afternoon after being seen by her oncology team with symptoms of hypotension. She also reported epigastric abdominal pain associated with multiple loosedark melena stools for one day. She is on daily NSAIDs for her cancer and chemotherapy pain. She denies any associated symptoms of nausea, vomiting or dysphagia. The patient denies any history of blood thinners. On arrival to the ER, she was tachycardic with a heart rateof 115 and hypotensive with systolic blood pressure 80s-90s. Her laboratory data was significant for severe anemia with hemoglobin of 6.0 and hematocrit of 17.9. In addition, she was in renal failure with a BUN of 66 and creatinine 2.12, and hyperkalemic with potassium level of 6.1. Due to her abdominal pain, a CT scan of the abdomen andpelvis was obtained, which showed bilateral ureteral stents with some interval improvement of bilateral hydronephrosis compared to 03/03/2018 study. She also has evidence of fluid and air collection within the left hemipelvis, which is unchanged in appearance compared to previous examination. The patient has retroperitoneal lymphadenopathy and stable left pulmonary nodule. In the ER, she was given 2 liters of crystalloids and 3 units of packed red blood cells have been ordered. The patient was seen by GI service and plan is to proceed with upper endoscopy in the morning. The patient is on room air oxygen with a saturation of 98-100% and last blood pressure 94/50 with a MAP of 64. She denies any chest pain, shortness of breath, cough or any constitutional symptoms. 03/17: Continued gastrointestinal blood loss, likely upper source. Episodic hypotension. Some electrolytes imbalance this morning, being corrected. Starting fifth unit of packed red blood cells now. Protonix drip infusing. Plan for upper endoscopy today. 03/18: Hemoglobin and vital signs stable overnight. No evidence of continued bleeding. GI service plans repeat endoscopy after a period of time allowing clot to dissolve in the stomach. Renal function remains acceptable. 10-8 TRANSFERRED TO OUR SERVICE TODAY FOR EGD LATER TODAY STILL NPO AT THIS TIME AM LABS STILL TAKING MORPHINE FOR PAIN BUT HAVING BORDERLINE BLOOD PRESSURE SO IS GETTING SPARINGLY AT THIS TIME PT AND OT HYPOMAGNESIA WILL REPLACE DW RN AND PT AND FAMILY 10-9 LARGE ULCER IN STOMACH 2X3CM DIET PER GI ADVANCE SLOWLY AM LABS INCREASE ACTIVITY MOVE OUT OF ICUS PAIN CONTROL DW RN AND PT AND GI 10-10 NO CHANGE IN HEMOGLOBIN DIET IS NOW CARDIAC MOVE OUT OF ICU IF STABLE DC TO HOME TOMORROW DW RN AND PT AM LABS PT AND OT Physical Exam Vital signs: Vital Signs 03/20/18 10:00 03/20/18 12:00 03/20/18 12:27 Temperature 98.2 F Pulse Rate 104 H 95 H 89 Respiratory Rate 16 18 Blood Pressure 88/50 L Pulse Oximetry 100 03/20/18 12:55 03/20/18 14:00 03/20/18 14:23 Temperature Pulse Rate 104 H Respiratory Rate 16 18 Blood Pressure Pulse Oximetry 03/20/18 16:00 03/20/18 18:00 03/20/18 19:00 Temperature 98.8 F Pulse Rate 91 H 94 H Respiratory Rate 18 Blood Pressure 119/63 Pulse Oximetry 100 100 03/20/18 20:00 03/20/18 20:30 03/20/18 20:31 Temperature 99.3 F Pulse Rate 93 H 90 Respiratory Rate 20 20 Blood Pressure 99/58 L Pulse Oximetry 100 100 03/20/18 20:50 03/20/18 22:00 03/21/18 00:00 Temperature 99.0 F Pulse Rate 91 H 90 Respiratory Rate 18 16 Blood Pressure 101/57 L Pulse Oximetry 100 03/21/18 02:00 03/21/18 04:00 03/21/18 06:00 Temperature 99.0 F Pulse Rate 84 86 93 H Respiratory Rate 18 Blood Pressure 115/66 Pulse Oximetry 100 03/21/18 08:00 03/21/18 08:26 03/21/18 08:54 Temperature 98.7 F Pulse Rate 92 H Respiratory Rate 15 14 Blood Pressure 115/63 Pulse Oximetry 100 98 Intake & Output 03/20/18 03/21/18 03/21/18 18:59 06:59 18:59 Intake Total 3140 / 3140 1310 / 1310 Output Total 1050 / 1050 2200 / 2200 Balance 2090 / 2090 -890 / -890 Weight 78.5 kg Intake: IV 2200 / 2200 350 / 350 Protonix Inj 80 MG In NS Inj 100 / 100 100 / 100 100 ML @ 10 mls/hr IV.CONT CONT SAMANTHA Rx#:[id number] NS Inj 1,000 ML @ 125 mls/hr IV 1999 / 1999 250 / 250 .CONT .Q8H SAMANTHA Rx#:[id number] Rocephin Inj 1,000 MG In NS Inj 100 / 100 100 ML @ 200 mls/hr IV.SIG Q24H SAMANTHA Rx#:[id number] Oral 940 / 940 960 / 960 Output: Urine Amount (Catheter) 1050 / 1050 2200 / 2200 PUREWIC 1050 / 1050 2200 / 2200 Other: Date of Last Bowel Movement 03/17/18 03/17/18 03/17/18 # Bowel Movements 0 Narrative: GENERAL: Awake alert and oriented x3 talkative and cooperative --appears to be in mild distress SKIN: Warm and dry. HEAD: Atraumatic. Normocephalic. EYES: Pupils equal and round. No scleral icterus. No injection or drainage. EOMI ENT: No nasal bleeding or discharge. Mucous membranes pink and moist. Tongue is midline NECK: Trachea midline. No JVD. Neck is supple CARDIOVASCULAR: Regular rate and rhythm. S1-S2 no S3 or S4 RESPIRATORY: No accessory muscle use. Clear to auscultation. Breath sounds equal bilaterally. GASTROINTESTINAL: Abdomen soft, non-tender, nondistended. Hepatic and splenic margins not palpable. MUSCULOSKELETAL: Extremities without clubbing, cyanosis, or edema. No obvious deformities. NEUROLOGICAL: Awake and alert. No obvious cranial nerve deficits. Motor grossly within normal limits. Five out of 5 muscle strength in the arms and legs. Normal speech. PSYCHIATRIC: Appropriate mood and affect; insight and judgment normal. - Urinary Catheter Management Straight Cath placed during this visit: yes, but has since been removed by the nurse Reason for continuing: Not indwelling catheter Insertion date: 03/16/18 Insertion time: 13:02 Removal date: 03/16/18 Removal time: 12:04 PUREWIC Cath placed during this visit: no Results - Labs CBC & Chem 7: 03/21/18 04:25 03/21/18 04:25 Laboratory Results - last 24 hr 03/20/18 03/20/18 03/20/18 11:39 11:40 17:54 WBC RBC Hgb 8.1 L Hct 22.9 L MCV MCH MCHC RDW Plt Count MPV Neut % (Auto) Lymph % (Auto) [facility] % (Auto) Eos % (Auto) Baso % (Auto) Neut # (Auto) Lymph # (Auto) [facility] # (Auto) Eos # (Auto) Baso # (Auto) WBC Differential Differential Comment PT INR Sodium Potassium Chloride Carbon Dioxide Anion Gap BUN Creatinine Estimated GFR POC Glucose 107 176 H Random Glucose Calcium Phosphorus Magnesium Total Bilirubin AST ALT Alkaline Phosphatase Total Protein Albumin 03/20/18 03/21/18 03/21/18 22:55 04:25 04:25 WBC 4.5 RBC 2.53 L Hgb 8.3 L Hct 23.6 L MCV 93.4 MCH 32.9 MCHC 35.2 RDW 15.3 Plt Count 118 L MPV 6.9 L Neut % (Auto) 83.3 H Lymph % (Auto) 7.[address] % (Auto) 8.8 H Eos % (Auto) 0.5 Baso % (Auto) 0.3 Neut # (Auto) 3.7 Lymph # (Auto) 0.[address] # (Auto) 0.4 Eos # (Auto) 0.0 Baso # (Auto) 0.0 WBC Differential . Differential Comment Auto diff final PT 10.9 INR 1.1 Sodium Potassium Chloride Carbon Dioxide Anion Gap BUN Creatinine Estimated GFR POC Glucose 132 H Random Glucose Calcium Phosphorus Magnesium Total Bilirubin AST ALT Alkaline Phosphatase Total Protein Albumin 03/21/18 04:25 WBC RBC Hgb Hct MCV MCH MCHC RDW Plt Count MPV Neut % (Auto) Lymph % (Auto) [facility] % (Auto) Eos % (Auto) Baso % (Auto) Neut # (Auto) Lymph # (Auto) [facility] # (Auto) Eos # (Auto) Baso # (Auto) WBC Differential Differential Comment PT INR Sodium 139 Potassium 3.7 Chloride 113 H Carbon Dioxide 17.3 L Anion Gap 9 BUN 12 Creatinine 1.11 H Estimated GFR 60 L POC Glucose Random Glucose 96 Calcium 7.9 L Phosphorus 2.7 Magnesium 1.4 L Total Bilirubin 0.2 AST 10 L ALT 13 Alkaline Phosphatase 102 Total Protein 5.7 L Albumin 1.7 L - Imaging Impressions Abdomen X-Ray 03/20/18 00:00 CONCLUSION: Nonspecific bowel gas pattern with some mildly to moderately dilated loops of small and large bowel with air. This can be seen with an ileus. Bilateral double-J stents in place. - Procedures EGD PROCEDURE REPORT EXAM DATE: 03/17/2018 PATIENT NAME: Morgan Salmeron MR #: [id number] BIRTHDATE: 1955 ATTENDING: Bailey Trevizo MD ORDER #: [id number] [employer] OWNER: Kennedy Cabello and Keyanna Lubin STATUS: inpatient INDICATIONS: The patient is a 62 yr old female here for an EGD due to acute post hemorrhagic anemia and melena PROCEDURE PERFORMED: EGD w/ ablation MEDICATIONS: None and Per Anesthesia. TOPICAL ANESTHETIC: CONSENT: The patient understands the risks and benefits of the procedure and understands that these risks include, but are not limited to: sedation, allergic reaction, infection, perforation and/or bleeding. Alternative means of evaluation and treatment include, among others: physical exam, x-rays, and/or surgical intervention. The patient elects to proceed with this endoscopic procedure. medical equipment was checked for proper function. Hand hygiene and appropriate measures for infection prevention was taken. After the risks, benefits and alternatives of the procedure were thoroughly explained, Informed consent was verified, confirmed and timeout was successfully executed by the treatment team. The patient was anesthetized with topical anesthesia and the Pentax EG-[id number] endoscope was introduced through the mouth and advanced to the first portion of the duodenum. Retroflexed views revealed large blood clot The gastroscope was then slowly withdrawn and removed. ESOPHAGUS: The mucosa of the esophagus appeared normal. STOMACH: Large blood clot covering 2/3rds of the stomach. No active bleeding. Suctioned as much as possible. DUODENUM: A large non-bleeding non-bleeding and shallow ulcer, ranging between 5-9mm in size, with surrounding edema, a pigmented spot and an adherent clot was found in the duodenal bulb. Argon plasma coagulation was applied to the site. With complete hemostasis achieved. ADVERSE EVENTS: There were no complications. IMPRESSIONS: 1. The esophagus appeared normal 2. Large blood clot covering 2/3rds of the stomach. No active bleeding. Suctioned as much as possible 3. Large non-bleeding ulcer, ranging between 5-9mm in size, was found in the duodenal bulb; Argon plasma coagulation was applied to the site; with complete hemostasis achieved 4. Retroflexed views revealed large blood clot RECOMMENDATIONS: 1. Continue PPI 2. Monitor in ICU, transfuse as needed. Clear liquid diet. IV reglan. REpeat egd tomorrow or monday depending upon clinical course. PATIENT CONDITION: stable DISPOSITION: Inpatient REPEAT EXAM: Return 1 day EGD Bailey Trevizo MD eSigned: Bailey Trevizo MD 03/17/2018 1:48 PM EGD PROCEDURE REPORT EXAM DATE: 03/19/2018 PATIENT NAME: Morgan Salmeron MR #: [id number] BIRTHDATE: 1955 ATTENDING: Bailey Trevizo MD ORDER #: [id number] [employer] OWNER: Alberto Padilla Pena, Gabriela, and Guillermina Potter STATUS: inpatient INDICATIONS: The patient is a 62 yr old female here for an EGD due to acute post hemorrhagic anemia PROCEDURE PERFORMED: EGD, diagnostic MEDICATIONS: None and Per Anesthesia. TOPICAL ANESTHETIC: CONSENT: The patient understands the risks and benefits of the procedure and understands that these risks include, but are not limited to: sedation, allergic reaction, infection, perforation and/or bleeding. Alternative means of evaluation and treatment include, among others: physical exam, x-rays, and/or surgical intervention. The patient elects to proceed with this endoscopic procedure. medical equipment was checked for proper function. Hand hygiene and appropriate measures for infection prevention was taken. After the risks, benefits and alternatives of the procedure were thoroughly explained, Informed consent was verified, confirmed and timeout was successfully executed by the treatment team. The patient was anesthetized with topical anesthesia and the Pentax EG-[id number] endoscope was introduced through the mouth and advanced to the second portion of the duodenum. Retroflexed views revealed no abnormalities The gastroscope was then slowly withdrawn and removed. ESOPHAGUS: The mucosa of the esophagus appeared normal. STOMACH: Two large non-bleeding, deep and irregular shaped ulcers, measuring 20 x 30mm in size, with heaped up edges, an adherent clot and a pigmented spot were found in the gastric body, on the lesser curvature of the stomach, and in the gastric antrum. DUODENUM: Two non-bleeding, shallow and clean-based ulcers ranging between 3-5 mm in size were found in the 1st part of the duodenum. ADVERSE EVENTS: There were no complications. IMPRESSIONS: 1. The esophagus appeared normal 2. Two large ulcers, measuring 20 x 30mm in size, were found in the gastric body, on the lesser curvature of the stomach, and in the gastric antrum 3. Two ulcers ranging between 3-5 mm in size were found in the 1st part of the duodenum 4. Retroflexed views revealed no abnormalities RECOMMENDATIONS: 1. Anti-reflux regimen 2. Continue PPI 3. If rebleeds needs IR consultation with L gastric artery embolization PATIENT CONDITION: stable DISPOSITION: Inpatient REPEAT EXAM: Return 1 month EGD Bailey Trevizo MD eSigned: Bailey Trevizo MD 03/19/2018 12:13 PM Assessment and Plan - Plan IMPRESSION: 1. Gastrointestinal bleeding.--Had first EGD on 03-17 to have a repeat EGD on 8N HAS LARGE ULCER 2X3 CM 2. Severe anemia secondary to acute blood loss. 3. Acute renal failure. Slow improvement 4. Hyperkalemia. 5. Abdominal pain. 6. Urinary tract infection. On Rocephin 7. Metastatic cervical cancer.-Pain control is able to tolerate 8. History of hydronephrosis, status post bilateral ureteral stent placement. 9. History of hypertension.-Borderline blood pressure at this time 10. History of diabetes mellitus. 11. Hypomagnesia will replace-a.m. labs PLAN 1. Serial hemoglobin determination 2. Oxygen p.r.n. to maintain sats above 92%. 3. Bronchodilators in the form of DuoNeb. 4. Continue Protonix drip infusion 5. Pressors if needed. Monitor heart rate and blood pressure closely and maintain MAP greater than 65 mmHg. She was given 2 liters of crystalloids in the ED. We will continue with IV fluids, normal saline at 125 mL an hour. 6. Serial hemoglobin determination 7. Monitor renal function, intake and output, and avoid nephrotoxins. 10. Place on Rocephin for a urinary tract infection and monitor for signs of infection. 11. Sliding scale insulin with Accu-Cheks to maintain euglycemia. 12. Chemical anticoagulation prophylaxis contraindicated in the setting of GI bleed and severe anemia. 13. IV access. The patient has peripheral IV and left-sided port. 14 replace magnesium per low magnesium level replacement 15 had first EGD on 106 and will have repeat EGD on 108-SHOWED LARGE ULCER 2X3 CM INCREASE ACTIVITY DIET PER GI A.m. labs Discussed with RN and patient and family AND GI TOLERATING A DIET MOVE OUT OF ICU AM LABS PT AND OT Code Status: FULL CODE Discussed Condition With: RN AND PT AND GI Discharge Planning: Pending improvement and stabilization of GI bleeding
[2018-03-21] MEDS ORDERED: Magnesium Sulfate Inj 4 GM in Sodium Chlor 0.9% Inj 92 ML IV.SIG ONE (11:00)
--- NOTE | 2018-03-21 16:07 | OTSOAPIP ---
TIME SESSION COMPLETED: 1600 TREATMENT TIME: 0 MINS. CHART REVIEWED. ATTEMPTED TO ASSESS PATIENT, PATIENT FOUND A SLEEP NURSING REQUESTED TO ALLOW PATIENT TO REST TODAY DUE TO PATIENT NOT FELLING WELL. PLAN: WILL SEE PATIENT NEXT TREATMENT DAY. Therapist: Isra Hollingsworth Signature on file
[2018-03-22] MEDS: Insulin NovoLIN Regular Correctional Sugar Inj SQ SCH ×4 (00:02→18:13)
[2018-03-22] MEDS: Pantoprazole Inj 80 MG in Sodium Chlor 0.9% Inj 100 ML IV.CONT SCH ×3 (00:03→23:56)
[2018-03-22] MEDS: Morphine Sulfate Inj 2 MG/ML Vial IV.PUSH PRN ×6 (01:16→20:39)
[2018-03-22 06:03] LABS: Baso % (Auto) 0.3 % (0.0-2.0); Eos % (Auto) 0.7 % (0.0-4.0); Hematocrit 24.4 % (35.0-46.0); Hemoglobin 8.4 gm/dL (11.6-15.3); Lymph # (Auto) 0.4 th/mm3 (1.0-4.8); Lymph % (Auto) 9.2 % (9.0-44.0); Mean Corpuscular HGB Conc 34.5 % (32.0-36.0); Mean Corpuscular Hemoglobin 32.6 pg (27.0-34.0); Mean Corpuscular Volume 94.3 fL (80.0-100.0); Mean Platelet Volume 6.9 fL (7.0-11.0); Mono # (Auto) 0.5 th/mm3 (0.0-0.9); Mono % (Auto) 10.7 % (0.0-8.0); Neut # (Auto) 3.5 th/mm3 (1.8-7.7); Neut % (Auto) 79.1 % (16.0-70.0); Platelet Count 119 th/mm3 (150-450); Red Blood Count 2.59 mil/mm3 (4.00-5.30); Red Cell Distribution Width 15.2 % (11.6-17.2); White Blood Count 4.5 th/mm3 (4.0-11.0)
[2018-03-22 06:26] LABS: Albumin 1.6 g/dL (3.4-5.0); Calcium 7.3 mg/dL (8.5-10.1); Carbon Dioxide 18.6 meq/L (21.0-32.0); Magnesium 1.8 mg/dL (1.5-2.5); Phosphorus 2.8 mg/dL (2.5-4.9); Potassium 3.6 meq/L (3.5-5.1); Total Protein 5.5 g/dL (6.4-8.2)
[2018-03-22] MEDS: Sod Chloride 0.9% Inj 1,000 ML IV.CONT SCH ×2 (08:31→18:12)
[2018-03-22] MEDS: Sodium Chloride 0.9% 2 ML Flush BID IV.FLUSH SCH ×2 (08:32→20:41)
[2018-03-22] MEDS ORDERED: Magnesium Sulfate Inj 2 GM in Sodium Chlor 0.9% Inj 96 ML IV.SIG ONE (09:01)
--- NOTE | 2018-03-22 09:55 | P.PNIM ---
Subjective Interval history: The patient is a 62-year-old female with past medical history of metastatic cervical cancer, diabetes mellitus, hypertension, bronchialasthma, who presented to [facility] this afternoon after being seen by her oncology team with symptoms of hypotension. She also reported epigastric abdominal pain associated with multiple loosedark melena stools for one day. She is on daily NSAIDs for her cancer and chemotherapy pain. She denies any associated symptoms of nausea, vomiting or dysphagia. The patient denies any history of blood thinners. On arrival to the ER, she was tachycardic with a heart rateof 115 and hypotensive with systolic blood pressure 80s-90s. Her laboratory data was significant for severe anemia with hemoglobin of 6.0 and hematocrit of 17.9. In addition, she was in renal failure with a BUN of 66 and creatinine 2.12, and hyperkalemic with potassium level of 6.1. Due to her abdominal pain, a CT scan of the abdomen andpelvis was obtained, which showed bilateral ureteral stents with some interval improvement of bilateral hydronephrosis compared to 03/03/2018 study. She also has evidence of fluid and air collection within the left hemipelvis, which is unchanged in appearance compared to previous examination. The patient has retroperitoneal lymphadenopathy and stable left pulmonary nodule. In the ER, she was given 2 liters of crystalloids and 3 units of packed red blood cells have been ordered. The patient was seen by GI service and plan is to proceed with upper endoscopy in the morning. The patient is on room air oxygen with a saturation of 98-100% and last blood pressure 94/50 with a MAP of 64. She denies any chest pain, shortness of breath, cough or any constitutional symptoms. 03/17: Continued gastrointestinal blood loss, likely upper source. Episodic hypotension. Some electrolytes imbalance this morning, being corrected. Starting fifth unit of packed red blood cells now. Protonix drip infusing. Plan for upper endoscopy today. 03/18: Hemoglobin and vital signs stable overnight. No evidence of continued bleeding. GI service plans repeat endoscopy after a period of time allowing clot to dissolve in the stomach. Renal function remains acceptable. 10-8 TRANSFERRED TO OUR SERVICE TODAY FOR EGD LATER TODAY STILL NPO AT THIS TIME AM LABS STILL TAKING MORPHINE FOR PAIN BUT HAVING BORDERLINE BLOOD PRESSURE SO IS GETTING SPARINGLY AT THIS TIME PT AND OT HYPOMAGNESIA WILL REPLACE DW RN AND PT AND FAMILY 10-9 LARGE ULCER IN STOMACH 2X3CM DIET PER GI ADVANCE SLOWLY AM LABS INCREASE ACTIVITY MOVE OUT OF ICUS PAIN CONTROL DW RN AND PT AND GI 10 NO CHANGE IN HEMOGLOBIN DIET IS NOW CARDIAC MOVE OUT OF ICU IF STABLE DC TO HOME TOMORROW DW RN AND PT AM LABS PT AND OT 03-22 DC TO HOME TODAY TOLERATING A DIET NO NSAIDS DC TO HOME TODAY OUTPT RADIATION LATER TODAY DW RN AND PT AND FAMILY WANTS A WALKER AT DC Physical Exam Vital signs: Vital Signs 03/21/18 10:00 03/21/18 12:00 03/21/18 14:00 Temperature 99.2 F Pulse Rate 87 85 87 Respiratory Rate 17 Blood Pressure 103/57 L Pulse Oximetry 100 03/21/18 16:00 03/21/18 18:00 03/21/18 20:00 Temperature 99.9 F H 99.7 F H Pulse Rate 88 83 84 Respiratory Rate 15 14 Blood Pressure 117/64 108/62 Pulse Oximetry 100 100 03/21/18 21:10 03/21/18 22:00 03/22/18 00:00 Temperature 99 F Pulse Rate 84 92 H Respiratory Rate 15 Blood Pressure 104/62 Pulse Oximetry 95 100 03/22/18 02:00 03/22/18 04:00 03/22/18 06:00 Temperature 99.2 F Pulse Rate 84 82 84 Respiratory Rate 16 Blood Pressure 117/67 Pulse Oximetry 100 03/22/18 08:00 03/22/18 08:34 03/22/18 08:45 Temperature 98.1 F Pulse Rate 79 Respiratory Rate 16 17 Blood Pressure 116/59 L Pulse Oximetry 100 98 Intake & Output 03/21/18 03/22/18 03/22/18 18:59 06:59 18:59 Intake Total 2740 / 2740 2300 / 2300 1100 / 1100 Output Total 2300 / 2300 2300 / 2300 Balance 440 / 440 0 / 0 1100 / 1100 Weight 76.1 kg Intake: IV 1300 / 1300 1100 / 1100 1100 / 1100 Protonix Inj 80 MG In NS Inj 100 / 100 100 / 100 100 / 100 100 ML @ 10 mls/hr IV.CONT CONT SAMANTHA Rx#:[id number] NS Inj 1,000 ML @ 125 mls/hr IV 1000 / 1000 1000 / 1000 1000 / 1000 .CONT .Q8H SAMANTHA Rx#:[id number] Magnesium Sulfate Inj 4 GM In 100 / 100 NS Inj 92 ML @ 25 mls/hr IV.SIG ONCE ONE Rx#:[id number] Rocephin Inj 1,000 MG In NS Inj 100 / 100 100 ML @ 200 mls/hr IV.SIG Q24H SAMANTHA Rx#:[id number] Oral 1440 / 1440 1200 / 1200 Output: Urine 2300 / 2300 Urine Amount (Catheter) 2300 / 2300 PUREWIC 2300 / 2300 Other: Date of Last Bowel Movement 03/17/18 03/17/18 03/17/18 # Bowel Movements 0 Narrative: GENERAL: Awake alert and oriented x3 talkative and cooperative --appears to be in mild distress SKIN: Warm and dry. HEAD: Atraumatic. Normocephalic. EYES: Pupils equal and round. No scleral icterus. No injection or drainage. EOMI ENT: No nasal bleeding or discharge. Mucous membranes pink and moist. Tongue is midline NECK: Trachea midline. No JVD. Neck is supple CARDIOVASCULAR: Regular rate and rhythm. S1-S2 no S3 or S4 RESPIRATORY: No accessory muscle use. Clear to auscultation. Breath sounds equal bilaterally. GASTROINTESTINAL: Abdomen soft, non-tender, nondistended. Hepatic and splenic margins not palpable. MUSCULOSKELETAL: Extremities without clubbing, cyanosis, or edema. No obvious deformities. NEUROLOGICAL: Awake and alert. No obvious cranial nerve deficits. Motor grossly within normal limits. Five out of 5 muscle strength in the arms and legs. Normal speech. PSYCHIATRIC: Appropriate mood and affect; insight and judgment normal. - Urinary Catheter Management Straight Cath placed during this visit: yes, but has since been removed by the nurse Reason for continuing: Not indwelling catheter Insertion date: 03/16/18 Insertion time: 13:02 Removal date: 03/16/18 Removal time: 12:04 PUREWIC Cath placed during this visit: no Results - Labs CBC & Chem 7: 03/22/18 05:18 03/22/18 05:18 Laboratory Results - last 24 hr 03/21/18 03/22/18 03/22/18 12:19 00:00 05:18 WBC 4.5 RBC 2.59 L Hgb 8.4 L Hct 24.4 L MCV 94.3 MCH 32.6 MCHC 34.5 RDW 15.2 Plt Count 119 L MPV 6.9 L Neut % (Auto) 79.1 H Lymph % (Auto) 9.2 [place] % (Auto) 10.7 H Eos % (Auto) 0.7 Baso % (Auto) 0.3 Neut # (Auto) 3.5 Lymph # (Auto) 0.[address] [place] # (Auto) 0.5 Eos # (Auto) 0.0 Baso # (Auto) 0.0 WBC Differential . Differential Comment Auto diff final Sodium Potassium Chloride Carbon Dioxide Anion Gap BUN Creatinine Estimated GFR POC Glucose 117 H 106 Random Glucose Calcium Prot Corrected Calcium Phosphorus Magnesium Total Bilirubin AST ALT Alkaline Phosphatase Total Protein Albumin 03/22/18 03/22/18 05:18 05:37 WBC RBC Hgb Hct MCV MCH MCHC RDW Plt Count MPV Neut % (Auto) Lymph % (Auto) [place] % (Auto) Eos % (Auto) Baso % (Auto) Neut # (Auto) Lymph # (Auto) [place] # (Auto) Eos # (Auto) Baso # (Auto) WBC Differential Differential Comment Sodium 141 Potassium 3.6 Chloride 111 H Carbon Dioxide 18.6 L Anion Gap 11 BUN 12 Creatinine 0.99 Estimated GFR 69 L POC Glucose 103 Random Glucose 100 Calcium 7.3 L* Prot Corrected Calcium 8.2 L Phosphorus 2.8 Magnesium 1.8 Total Bilirubin 0.2 AST 14 L ALT 14 Alkaline Phosphatase 113 Total Protein 5.5 L Albumin 1.6 L - Procedures EGD PROCEDURE REPORT EXAM DATE: 03/17/2018 PATIENT NAME: Morgan Salmeron MR #: [id number] BIRTHDATE: 1955 ATTENDING: Bailey Trevizo MD ORDER #: [id number] PHOTOGRAPHIC LABORATORY SUPERVISOR: Kennedy Cabello and Keyanna Lubin STATUS: inpatient INDICATIONS: The patient is a 62 yr old female here for an EGD due to acute post hemorrhagic anemia and melena PROCEDURE PERFORMED: EGD w/ ablation MEDICATIONS: None and Per Anesthesia. TOPICAL ANESTHETIC: CONSENT: The patient understands the risks and benefits of the procedure and understands that these risks include, but are not limited to: sedation, allergic reaction, infection, perforation and/or bleeding. Alternative means of evaluation and treatment include, among others: physical exam, x-rays, and/or surgical intervention. The patient elects to proceed with this endoscopic procedure. medical equipment was checked for proper function. Hand hygiene and appropriate measures for infection prevention was taken. After the risks, benefits and alternatives of the procedure were thoroughly explained, Informed consent was verified, confirmed and timeout was successfully executed by the treatment team. The patient was anesthetized with topical anesthesia and the Pentax EG-[id number] endoscope was introduced through the mouth and advanced to the first portion of the duodenum. Retroflexed views revealed large blood clot The gastroscope was then slowly withdrawn and removed. ESOPHAGUS: The mucosa of the esophagus appeared normal. STOMACH: Large blood clot covering 2/3rds of the stomach. No active bleeding. Suctioned as much as possible. DUODENUM: A large non-bleeding non-bleeding and shallow ulcer, ranging between 5-9mm in size, with surrounding edema, a pigmented spot and an adherent clot was found in the duodenal bulb. Argon plasma coagulation was applied to the site. With complete hemostasis achieved. ADVERSE EVENTS: There were no complications. IMPRESSIONS: 1. The esophagus appeared normal 2. Large blood clot covering 2/3rds of the stomach. No active bleeding. Suctioned as much as possible 3. Large non-bleeding ulcer, ranging between 5-9mm in size, was found in the duodenal bulb; Argon plasma coagulation was applied to the site; with complete hemostasis achieved 4. Retroflexed views revealed large blood clot RECOMMENDATIONS: 1. Continue PPI 2. Monitor in ICU, transfuse as needed. Clear liquid diet. IV reglan. REpeat egd tomorrow or monday depending upon clinical course. PATIENT CONDITION: stable DISPOSITION: Inpatient REPEAT EXAM: Return 1 day EGD Bailey Trevizo MD eSigned: Bailey Trevizo MD 03/17/2018 1:48 PM EGD PROCEDURE REPORT EXAM DATE: 03/19/2018 PATIENT NAME: Morgan Salmeron MR #: [id number] BIRTHDATE: 1955 ATTENDING: Bailey Trevizo MD ORDER #: [id number] PHOTOGRAPHIC LABORATORY SUPERVISOR: Alberto Padilla Pena, Gabriela, and Guillermina Potter STATUS: inpatient INDICATIONS: The patient is a 62 yr old female here for an EGD due to acute post hemorrhagic anemia PROCEDURE PERFORMED: EGD, diagnostic MEDICATIONS: None and Per Anesthesia. TOPICAL ANESTHETIC: CONSENT: The patient understands the risks and benefits of the procedure and understands that these risks include, but are not limited to: sedation, allergic reaction, infection, perforation and/or bleeding. Alternative means of evaluation and treatment include, among others: physical exam, x-rays, and/or surgical intervention. The patient elects to proceed with this endoscopic procedure. medical equipment was checked for proper function. Hand hygiene and appropriate measures for infection prevention was taken. After the risks, benefits and alternatives of the procedure were thoroughly explained, Informed consent was verified, confirmed and timeout was successfully executed by the treatment team. The patient was anesthetized with topical anesthesia and the Pentax EG-[id number] endoscope was introduced through the mouth and advanced to the second portion of the duodenum. Retroflexed views revealed no abnormalities The gastroscope was then slowly withdrawn and removed. ESOPHAGUS: The mucosa of the esophagus appeared normal. STOMACH: Two large non-bleeding, deep and irregular shaped ulcers, measuring 20 x 30mm in size, with heaped up edges, an adherent clot and a pigmented spot were found in the gastric body, on the lesser curvature of the stomach, and in the gastric antrum. DUODENUM: Two non-bleeding, shallow and clean-based ulcers ranging between 3-5 mm in size were found in the 1st part of the duodenum. ADVERSE EVENTS: There were no complications. IMPRESSIONS: 1. The esophagus appeared normal 2. Two large ulcers, measuring 20 x 30mm in size, were found in the gastric body, on the lesser curvature of the stomach, and in the gastric antrum 3. Two ulcers ranging between 3-5 mm in size were found in the 1st part of the duodenum 4. Retroflexed views revealed no abnormalities RECOMMENDATIONS: 1. Anti-reflux regimen 2. Continue PPI 3. If rebleeds needs IR consultation with L gastric artery embolization PATIENT CONDITION: stable DISPOSITION: Inpatient REPEAT EXAM: Return 1 month EGD Bailey Trevizo MD eSigned: Bailey Trevizo MD 03/19/2018 12:13 PM Assessment and Plan - Plan IMPRESSION: 1. Gastrointestinal bleeding.--Had first EGD on 03-17 to have a repeat EGD on -8N HAS LARGE ULCER 2X3 CM 2. Severe anemia secondary to acute blood loss. 3. Acute renal failure. Slow improvement 4. Hyperkalemia. 5. Abdominal pain. 6. Urinary tract infection. On Rocephin 7. Metastatic cervical cancer.-Pain control is able to tolerate 8. History of hydronephrosis, status post bilateral ureteral stent placement. 9. History of hypertension.-Borderline blood pressure at this time 10. History of diabetes mellitus. 11. Hypomagnesia will replace-a.m. labs PLAN 1. Serial hemoglobin determination 2. Oxygen p.r.n. to maintain sats above 92%. 3. Bronchodilators in the form of DuoNeb. 4. Continue Protonix drip infusion 5. Pressors if needed. Monitor heart rate and blood pressure closely and maintain MAP greater than 65 mmHg. She was given 2 liters of crystalloids in the ED. We will continue with IV fluids, normal saline at 125 mL an hour. 6. Serial hemoglobin determination 7. Monitor renal function, intake and output, and avoid nephrotoxins. 10. Place on Rocephin for a urinary tract infection and monitor for signs of infection. 11. Sliding scale insulin with Accu-Cheks to maintain euglycemia. 12. Chemical anticoagulation prophylaxis contraindicated in the setting of GI bleed and severe anemia. 13. IV access. The patient has peripheral IV and left-sided port. 14 replace magnesium per low magnesium level replacement 15 had first EGD on 106 and will have repeat EGD on 108-SHOWED LARGE ULCER 2X3 CM INCREASE ACTIVITY DIET PER GI A.m. labs Discussed with RN and patient and family AND GI TOLERATING A DIET MOVE OUT OF ICU AM LABS PT AND OT MOVING WELL DC TO HOME NO NSAIDS DW RN AND PT Code Status: FULL CODE Discussed Condition With: RN AND PT AND FAMILY Discharge Planning: DC TO HOME TODAY
--- NOTE | 2018-03-22 10:07 | P.DS ---
Date of admission: 03/16/18 16:14 Primary care physician: PROVIDER NON STAFF Attending physician on discharge: Stanton Mora Anticipated date of discharge: 03/22/18 Brief History from admission: The patient is a 62-year-old female with past medical history of metastatic cervical cancer, diabetes mellitus, hypertension, bronchialasthma, who presented to [facility] this afternoon after being seen by her oncology team with symptoms of hypotension. She also reported epigastric abdominal pain associated with multiple loosedark melena stools for one day. She is on daily NSAIDs for her cancer and chemotherapy pain. She denies any associated symptoms of nausea, vomiting or dysphagia. The patient denies any history of blood thinners. On arrival to the ER, she was tachycardic with a heart rateof 115 and hypotensive with systolic blood pressure 80s-90s. Her laboratory data was significant for severe anemia with hemoglobin of 6.0 and hematocrit of 17.9. In addition, she was in renal failure with a BUN of 66 and creatinine 2.12, and hyperkalemic with potassium level of 6.1. Due to her abdominal pain, a CT scan of the abdomen andpelvis was obtained, which showed bilateral ureteral stents with some interval improvement of bilateral hydronephrosis compared to 03/03/2018 study. She also has evidence of fluid and air collection within the left hemipelvis, which is unchanged in appearance compared to previous examination. The patient has retroperitoneal lymphadenopathy and stable left pulmonary nodule. In the ER, she was given 2 liters of crystalloids and 3 units of packed red blood cells have been ordered. The patient was seen by GI service and plan is to proceed with upper endoscopy in the morning. The patient is on room air oxygen with a saturation of 98-100% and last blood pressure 94/50 with a MAP of 64. She denies any chest pain, shortness of breath, cough or any constitutional symptoms. Patient update on day of discharge: The patient is a 62-year-old female with past medical history of metastatic cervical cancer, diabetes mellitus, hypertension, bronchialasthma, who presented to [facility] this afternoon after being seen by her oncology team with symptoms of hypotension. She also reported epigastric abdominal pain associated with multiple loosedark melena stools for one day. She is on daily NSAIDs for her cancer and chemotherapy pain. She denies any associated symptoms of nausea, vomiting or dysphagia. The patient denies any history of blood thinners. On arrival to the ER, she was tachycardic with a heart rateof 115 and hypotensive with systolic blood pressure 80s-90s. Her laboratory data was significant for severe anemia with hemoglobin of 6.0 and hematocrit of 17.9. In addition, she was in renal failure with a BUN of 66 and creatinine 2.12, and hyperkalemic with potassium level of 6.1. Due to her abdominal pain, a CT scan of the abdomen andpelvis was obtained, which showed bilateral ureteral stents with some interval improvement of bilateral hydronephrosis compared to 03/03/2018 study. She also has evidence of fluid and air collection within the left hemipelvis, which is unchanged in appearance compared to previous examination. The patient has retroperitoneal lymphadenopathy and stable left pulmonary nodule. In the ER, she was given 2 liters of crystalloids and 3 units of packed red blood cells have been ordered. The patient was seen by GI service and plan is to proceed with upper endoscopy in the morning. The patient is on room air oxygen with a saturation of 98-100% and last blood pressure 94/50 with a MAP of 64. She denies any chest pain, shortness of breath, cough or any constitutional symptoms. 03/17: Continued gastrointestinal blood loss, likely upper source. Episodic hypotension. Some electrolytes imbalance this morning, being corrected. Starting fifth unit of packed red blood cells now. Protonix drip infusing. Plan for upper endoscopy today. 03/18: Hemoglobin and vital signs stable overnight. No evidence of continued bleeding. GI service plans repeat endoscopy after a period of time allowing clot to dissolve in the stomach. Renal function remains acceptable. 10-8 TRANSFERRED TO OUR SERVICE TODAY FOR EGD LATER TODAY STILL NPO AT THIS TIME AM LABS STILL TAKING MORPHINE FOR PAIN BUT HAVING BORDERLINE BLOOD PRESSURE SO IS GETTING SPARINGLY AT THIS TIME PT AND OT HYPOMAGNESIA WILL REPLACE DW RN AND PT AND FAMILY 10-9 LARGE ULCER IN STOMACH 2X3CM DIET PER GI ADVANCE SLOWLY AM LABS INCREASE ACTIVITY MOVE OUT OF ICUS PAIN CONTROL DW RN AND PT AND GI 10-10 NO CHANGE IN HEMOGLOBIN DIET IS NOW CARDIAC MOVE OUT OF ICU IF STABLE DC TO HOME TOMORROW DW RN AND PT AM LABS PT AND OT 10-11 DC TO HOME TODAY TOLERATING A DIET NO NSAIDS DC TO HOME TODAY OUTPT RADIATION LATER TODAY DW RN AND PT AND FAMILY WANTS A WALKER AT DC DS: Diagnosis - Discharge Diagnosis (1) Abdominal pain Status: Acute (2) Acute GI bleeding Status: Acute (3) Acute hypotension Status: Resolved (4) Upper GI bleed Status: Acute (5) Cervical cancer Status: Chronic (6) Abdominal pain Status: Acute (7) Cervical cancer Status: Chronic (8) Diabetes Status: Chronic (9) Chronic back pain Status: Chronic (10) Diabetes mellitus Status: Chronic (11) Hypertension Status: Chronic DS: Medications - Discharge Medications Prescriptions: amlodipine [Norvasc] 5 mg PO DAILY #30 tab dicyclomine 20 mg PO QID #120 tab hydrocodone-acetaminophen 1 tab PO Q4H PRN #60 tab PRN Reason: Pain metoclopramide HCl [Reglan] 10 mg PO TID #90 tab ondansetron HCl [Zofran] 8 mg PO TID PRN #60 tab PRN Reason: Nausea pantoprazole [Protonix] 40 mg PO BID #60 tab potassium chloride 20 meq PO BID #60 pack sennosides-docusate sodium [Senna Plus] 1 tab PO BID #60 tab sitagliptin [Januvia] 100 mg PO DAILY #30 tab DS: Summary Hospital Course: The patient is a 62-year-old female with past medical history of metastatic cervical cancer, diabetes mellitus, hypertension, bronchialasthma, who presented to [facility] this afternoon after being seen by her oncology team with symptoms of hypotension. She also reported epigastric abdominal pain associated with multiple loosedark melena stools for one day. She is on daily NSAIDs for her cancer and chemotherapy pain. She denies any associated symptoms of nausea, vomiting or dysphagia. The patient denies any history of blood thinners. On arrival to the ER, she was tachycardic with a heart rateof 115 and hypotensive with systolic blood pressure 80s-90s. Her laboratory data was significant for severe anemia with hemoglobin of 6.0 and hematocrit of 17.9. In addition, she was in renal failure with a BUN of 66 and creatinine 2.12, and hyperkalemic with potassium level of 6.1. Due to her abdominal pain, a CT scan of the abdomen andpelvis was obtained, which showed bilateral ureteral stents with some interval improvement of bilateral hydronephrosis compared to 03/03/2018 study. She also has evidence of fluid and air collection within the left hemipelvis, which is unchanged in appearance compared to previous examination. The patient has retroperitoneal lymphadenopathy and stable left pulmonary nodule. In the ER, she was given 2 liters of crystalloids and 3 units of packed red blood cells have been ordered. The patient was seen by GI service and plan is to proceed with upper endoscopy in the morning. The patient is on room air oxygen with a saturation of 98-100% and last blood pressure 94/50 with a MAP of 64. She denies any chest pain, shortness of breath, cough or any constitutional symptoms. 03/17: Continued gastrointestinal blood loss, likely upper source. Episodic hypotension. Some electrolytes imbalance this morning, being corrected. Starting fifth unit of packed red blood cells now. Protonix drip infusing. Plan for upper endoscopy today. 03/18: Hemoglobin and vital signs stable overnight. No evidence of continued bleeding. GI service plans repeat endoscopy after a period of time allowing clot to dissolve in the stomach. Renal function remains acceptable. 10-8 TRANSFERRED TO OUR SERVICE TODAY FOR EGD LATER TODAY STILL NPO AT THIS TIME AM LABS STILL TAKING MORPHINE FOR PAIN BUT HAVING BORDERLINE BLOOD PRESSURE SO IS GETTING SPARINGLY AT THIS TIME PT AND OT HYPOMAGNESIA WILL REPLACE DW RN AND PT AND FAMILY 10-9 LARGE ULCER IN STOMACH 2X3CM DIET PER GI ADVANCE SLOWLY AM LABS INCREASE ACTIVITY MOVE OUT OF ICUS PAIN CONTROL DW RN AND PT AND GI 10-10 NO CHANGE IN HEMOGLOBIN DIET IS NOW CARDIAC MOVE OUT OF ICU IF STABLE DC TO HOME TOMORROW DW RN AND PT AM LABS PT AND OT 10-11 DC TO HOME TODAY TOLERATING A DIET NO NSAIDS DC TO HOME TODAY OUTPT RADIATION LATER TODAY DW RN AND PT AND FAMILY WANTS A WALKER AT DC - Time Spent with Patient Total time spent providing and/or coordinating discharge services: Greater than 30 minutes - Quality: VTE Deep Vein Thrombosis/Pulmonary Embolism Present on Admission: No Exam Vital signs: Vital Signs 03/21/18 10:00 03/21/18 12:00 03/21/18 14:00 Temperature 99.2 F Pulse Rate 87 85 87 Respiratory Rate 17 Blood Pressure 103/57 L Pulse Oximetry 100 03/21/18 16:00 03/21/18 18:00 03/21/18 20:00 Temperature 99.9 F H 99.7 F H Pulse Rate 88 83 84 Respiratory Rate 15 14 Blood Pressure 117/64 108/62 Pulse Oximetry 100 100 03/21/18 21:10 03/21/18 22:00 03/22/18 00:00 Temperature 99 F Pulse Rate 84 92 H Respiratory Rate 15 Blood Pressure 104/62 Pulse Oximetry 95 100 03/22/18 02:00 03/22/18 04:00 03/22/18 06:00 Temperature 99.2 F Pulse Rate 84 82 84 Respiratory Rate 16 Blood Pressure 117/67 Pulse Oximetry 100 03/22/18 08:00 03/22/18 08:34 03/22/18 08:45 Temperature 98.1 F Pulse Rate 79 Respiratory Rate 16 17 Blood Pressure 116/59 L Pulse Oximetry 100 98 Intake & Output 03/21/18 03/22/18 03/22/18 18:59 06:59 18:59 Intake Total 2740 / 2740 2300 / 2300 1100 / 1100 Output Total 2300 / 2300 2300 / 2300 Balance 440 / 440 0 / 0 1100 / 1100 Weight 76.1 kg Intake: IV 1300 / 1300 1100 / 1100 1100 / 1100 Protonix Inj 80 MG In NS Inj 100 / 100 100 / 100 100 / 100 100 ML @ 10 mls/hr IV.CONT CONT [facility]ANTH[facility] Rx#:[id number] NS Inj 1,000 ML @ 125 mls/hr IV 1000 / 1000 1000 / 1000 1000 / 1000 .[facility] .[facility]H [facility] Rx#:[id number] Magnesium Sulfate Inj 4 GM In 100 / 100 NS Inj 92 ML @ 25 mls/hr IV.SIG ONCE ONE Rx#:[id number] Rocephin Inj 1,000 MG In NS Inj 100 / 100 100 ML @ 200 mls/hr IV.SIG Q24H [facility] Rx#:[id number] Oral 1440 / 1440 1200 / 1200 Output: Urine 2300 / 2300 Urine Amount (Catheter) 2300 / 2300 PUREWIC 2300 / 2300 Other: Date of Last Bowel Movement 03/17/18 03/17/18 03/17/18 # Bowel Movements 0 Narrative: GENERAL: Awake alert and oriented x3 talkative and cooperative --appears to be in mild distress SKIN: Warm and dry. HEAD: Atraumatic. Normocephalic. EYES: Pupils equal and round. No scleral icterus. No injection or drainage. EOMI ENT: No nasal bleeding or discharge. Mucous membranes pink and moist. Tongue is midline NECK: Trachea midline. No JVD. Neck is supple CARDIOVASCULAR: Regular rate and rhythm. S1-S2 no S3 or S4 RESPIRATORY: No accessory muscle use. Clear to auscultation. Breath sounds equal bilaterally. GASTROINTESTINAL: Abdomen soft, non-tender, nondistended. Hepatic and splenic margins not palpable. MUSCULOSKELETAL: Extremities without clubbing, cyanosis, or edema. No obvious deformities. NEUROLOGICAL: Awake and alert. No obvious cranial nerve deficits. Motor grossly within normal limits. Five out of 5 muscle strength in the arms and legs. Normal speech. PSYCHIATRIC: Appropriate mood and affect; insight and judgment normal. Results Procedures completed during hospitalization: EGD PROCEDURE REPORT EXAM DATE: 03/17/2018 PATIENT NAME: Morgan Salmeron MR #: [id number] BIRTHDATE: 1955 ATTENDING: Bailey Trevizo MD ORDER #: [id number] DOG WALKER: Kennedy Cabello and Keyanna Lubin STATUS: inpatient INDICATIONS: The patient is a 62 yr old female here for an EGD due to acute post hemorrhagic anemia and melena PROCEDURE PERFORMED: EGD w/ ablation MEDICATIONS: None and Per Anesthesia. TOPICAL ANESTHETIC: CONSENT: The patient understands the risks and benefits of the procedure and understands that these risks include, but are not limited to: sedation, allergic reaction, infection, perforation and/or bleeding. Alternative means of evaluation and treatment include, among others: physical exam, x-rays, and/or surgical intervention. The patient elects to proceed with this endoscopic procedure. medical equipment was checked for proper function. Hand hygiene and appropriate measures for infection prevention was taken. After the risks, benefits and alternatives of the procedure were thoroughly explained, Informed consent was verified, confirmed and timeout was successfully executed by the treatment team. The patient was anesthetized with topical anesthesia and the Yesmywineax EG-[id number] endoscope was introduced through the mouth and advanced to the first portion of the duodenum. Retroflexed views revealed large blood clot The gastroscope was then slowly withdrawn and removed. ESOPHAGUS: The mucosa of the esophagus appeared normal. STOMACH: Large blood clot covering 2/3rds of the stomach. No active bleeding. Suctioned as much as possible. DUODENUM: A large non-bleeding non-bleeding and shallow ulcer, ranging between 5-9mm in size, with surrounding edema, a pigmented spot and an adherent clot was found in the duodenal bulb. Argon plasma coagulation was applied to the site. With complete hemostasis achieved. ADVERSE EVENTS: There were no complications. IMPRESSIONS: 1. The esophagus appeared normal 2. Large blood clot covering 2/3rds of the stomach. No active bleeding. Suctioned as much as possible 3. Large non-bleeding ulcer, ranging between 5-9mm in size, was found in the duodenal bulb; Argon plasma coagulation was applied to the site; with complete hemostasis achieved 4. Retroflexed views revealed large blood clot RECOMMENDATIONS: 1. Continue PPI 2. Monitor in ICU, transfuse as needed. Clear liquid diet. IV reglan. REpeat egd tomorrow or monday depending upon clinical course. PATIENT CONDITION: stable DISPOSITION: Inpatient REPEAT EXAM: Return 1 day EGD Bailey Trevizo MD eSigned: Bailey Trevizo MD 03/17/2018 1:48 PM EGD PROCEDURE REPORT EXAM DATE: 03/19/2018 PATIENT NAME: Morgan Salmeron MR #: [id number] BIRTHDATE: 1955 ATTENDING: Bailey Trevizo MD ORDER #: [id number] DOG WALKER: Alberto Padilla Pena, Gabriela, and Guillermina Potter STATUS: inpatient INDICATIONS: The patient is a 62 yr old female here for an EGD due to acute post hemorrhagic anemia PROCEDURE PERFORMED: EGD, diagnostic MEDICATIONS: None and Per Anesthesia. TOPICAL ANESTHETIC: CONSENT: The patient understands the risks and benefits of the procedure and understands that these risks include, but are not limited to: sedation, allergic reaction, infection, perforation and/or bleeding. Alternative means of evaluation and treatment include, among others: physical exam, x-rays, and/or surgical intervention. The patient elects to proceed with this endoscopic procedure. medical equipment was checked for proper function. Hand hygiene and appropriate measures for infection prevention was taken. After the risks, benefits and alternatives of the procedure were thoroughly explained, Informed consent was verified, confirmed and timeout was successfully executed by the treatment team. The patient was anesthetized with topical anesthesia and the Pentax EG-[id number] endoscope was introduced through the mouth and advanced to the second portion of the duodenum. Retroflexed views revealed no abnormalities The gastroscope was then slowly withdrawn and removed. ESOPHAGUS: The mucosa of the esophagus appeared normal. STOMACH: Two large non-bleeding, deep and irregular shaped ulcers, measuring 20 x 30mm in size, with heaped up edges, an adherent clot and a pigmented spot were found in the gastric body, on the lesser curvature of the stomach, and in the gastric antrum. DUODENUM: Two non-bleeding, shallow and clean-based ulcers ranging between 3-5 mm in size were found in the 1st part of the duodenum. ADVERSE EVENTS: There were no complications. IMPRESSIONS: 1. The esophagus appeared normal 2. Two large ulcers, measuring 20 x 30mm in size, were found in the gastric body, on the lesser curvature of the stomach, and in the gastric antrum 3. Two ulcers ranging between 3-5 mm in size were found in the 1st part of the duodenum 4. Retroflexed views revealed no abnormalities RECOMMENDATIONS: 1. Anti-reflux regimen 2. Continue PPI 3. If rebleeds needs IR consultation with L gastric artery embolization PATIENT CONDITION: stable DISPOSITION: Inpatient REPEAT EXAM: Return 1 month EGD Bailey Trevizo MD eSigned: Bailey Trevizo MD 03/19/2018 12:13 PM Completed studies during hospitalization: Laboratory Results WBC 4.5 th/mm3 (4.0-11.0) 03/22/18 05:18 RBC 2.59 mil/mm3 (4.00-5.30) L 03/22/18 05:18 Hgb 8.4 gm/dL (11.6-15.3) L 03/22/18 05:18 Hct 24.4 % (35.0-46.0) L 03/22/18 05:18 MCV 94.3 fL (80.0-100.0) 03/22/18 05:18 MCH 32.6 pg (27.0-34.0) 03/22/18 05:18 MCHC 34.5 % (32.0-36.0) 03/22/18 05:18 RDW 15.2 % (11.6-17.2) 03/22/18 05:18 Plt Count 119 th/mm3 (150-450) L 03/22/18 05:18 MPV 6.9 fL (7.0-11.0) L 03/22/18 05:18 Prelim Diff (Auto) Slide review pending 03/19/18 05:05 Neut % (Auto) 79.1 % (16.0-70.0) H 03/22/18 05:18 Lymph % (Auto) 9.2 % (9.0-44.0) 03/22/18 05:18 Parke % (Auto) 10.7 % (0.0-8.0) H 03/22/18 05:18 Eos % (Auto) 0.7 % (0.0-4.0) 03/22/18 05:18 Baso % (Auto) 0.3 % (0.0-2.0) 03/22/18 05:18 Neut # (Auto) 3.5 th/mm3 (1.8-7.7) 03/22/18 05:18 Lymph # (Auto) 0.4 th/mm3 (1.0-4.8) L 03/22/18 05:18 Parke # (Auto) 0.5 th/mm3 (0.0-0.9) 03/22/18 05:18 Eos # (Auto) 0.0 th/mm3 (0.0-0.4) 03/22/18 05:18 Baso # (Auto) 0.0 th/mm3 (0.0-0.2) 03/22/18 05:18 WBC Differential . 03/22/18 05:18 Diff Scan Auto diff confirmed 03/16/18 12:25 Seg Neuts % (Manual) 92 % (16-70) H 03/19/18 05:05 Band Neuts % (Manual) 5 % (0-6) 03/17/18 03:30 Lymphocytes % (Manual) 1 % (9-44) L 03/19/18 05:05 Monocytes % (Manual) 6 % (0-8) 03/19/18 05:05 Myelocytes % (Man) 1 % (0-0) H 03/19/18 05:05 Abs Neuts (Manual) 7.4 th/mm3 (1.8-7.7) 03/19/18 05:05 Differential Comment Auto diff final 03/22/18 05:18 Platelet Estimate Low (Normal) L 03/19/18 05:05 Platelet Morphology Normal (Normal) 03/19/18 05:05 Pappenheimer Bodies Present (None) H 03/19/18 05:05 PT 10.9 sec (9.8-11.6) 03/21/18 04:25 INR 1.1 Ratio 03/21/18 04:25 APTT 33.9 sec (24.3-30.1) H 03/16/18 12:25 Sodium 141 meq/L (136-145) 03/22/18 05:18 Potassium 3.6 meq/L (3.5-5.1) 03/22/18 05:18 Chloride 111 meq/L (98-107) H 03/22/18 05:18 Carbon Dioxide 18.6 meq/L (21.0-32.0) L 03/22/18 05:18 Anion Gap 11 meq/L (5-15) 03/22/18 05:18 BUN 12 mg/dL (7-18) 03/22/18 05:18 Creatinine 0.99 mg/dL (0.50-1.00) 03/22/18 05:18 Estimated GFR 69 mL/min (>89) L 03/22/18 05:18 POC Glucose 103 mg/dl (68-110) 03/22/18 05:37 Random Glucose 100 mg/dL (74-106) 03/22/18 05:18 Hemoglobin A1c 5.9 % (4.3-6.0) 03/19/18 05:05 Lactic Acid 1.2 mmol/L (0.4-2.0) 03/16/18 18:24 Calcium 7.3 mg/dL (8.5-10.1) L* 03/22/18 05:18 Prot Corrected Calcium 8.2 mg/dL (8.5-10.1) L 03/22/18 05:18 Phosphorus 2.8 mg/dL (2.5-4.9) 03/22/18 05:18 Magnesium 1.8 mg/dL (1.5-2.5) 03/22/18 05:18 Total Bilirubin 0.2 mg/dL (0.2-1.0) 03/22/18 05:18 AST 14 U/L (15-37) L 03/22/18 05:18 ALT 14 U/L (10-53) 03/22/18 05:18 Alkaline Phosphatase 113 U/L (45-117) 03/22/18 05:18 Troponin I Less than 0.02 ng/mL (0.02-0.05) L 03/16/18 12:25 Total Protein 5.5 g/dL (6.4-8.2) L 03/22/18 05:18 Albumin 1.6 g/dL (3.4-5.0) L 03/22/18 05:18 Lipase 25 U/L (73-393) L 03/16/18 12:25 TSH 0.718 uIU/mL (0.358-3.740) 03/19/18 05:05 Free T4 1.03 ng/dL (0.76-1.46) 03/19/18 05:05 Urine Color Yellow (Yellw/Straw) 03/16/18 12:30 Urine Clarity Hazy (Clear) H 03/16/18 12:30 Urine pH 5.0 (5.0-8.5) 03/16/18 12:30 Ur Specific T[place]ord 1.012 (1.002-1.035) 03/16/18 12:30 Urine Protein 30 mg/dL (Neg-Trace) H 03/16/18 12:30 Urine Glucose (UA) Negative mg/dL (Negative) 03/16/18 12:30 Urine Ketones Negative mg/dL (Negative) 03/16/18 12:30 Urine Occult Blood Small (Negative) H 03/16/18 12:30 Urine Nitrate Negative (Negative) 03/16/18 12:30 Urine Bilirubin Negative (Negative) 03/16/18 12:30 Urine Urobilinogen Less than 2 mg/dL (Less than 2) 03/16/18 12:30 Ur Leukocyte Esterase Moderate (Negative) H 03/16/18 12:30 Urine RBC 3 /hpf (0-3) 03/16/18 12:30 Urine WBC 46 /hpf (0-5) H 03/16/18 12:30 Urine WBC Clumps Moderate (None) H 03/16/18 12:30 Urine Bacteria Many /hpf (None) H 03/16/18 12:30 Micro UA Comment Cath-culture ind 03/16/18 12:30 Ur Microscopic Review Not Reportable 03/16/18 12:30 Urine Culture Comments Cath-cult indicated 03/16/18 12:30 Nasal Screen MRSA (PCR) Mrsa detected (Negative) 03/16/18 22:00 MTS Gel Crossmatch See Detail 03/17/18 07:33 Bld Prod Order Comment 03/16/18 13:58 Impressions Chest X-Ray 03/16/18 00:00 CONCLUSION: No acute cardiopulmonary disease. Abdomen/Pelvis CT 03/16/18 13:50 CONCLUSION: 1. Bilateral internal ureteral stents have been placed. There is some interval improvement of the bilateral hydronephrosis compared to 03/03/2018 but mild hydronephrosis is still noted bilaterally. The proximal loop of the right internal ureteral stent is located within the proximal ureter. The left internal ureteral stent appears to be more optimal in position with its proximal loop in the pelvicalyceal system. 2. Evidence of a fluid and air collection within the left hemipelvis which is unchanged in appearance compared to the previous examination and measures 6.0 x 4.1 cm. 3. The uterus is enlarged and extends into the left hemipelvis but is stable compared to the previous examination. 4. Stable left periaortic retroperitoneal lymphadenopathy. 5. Stable left pulmonary nodule measuring 8 mm. 6. Coronary artery calcifications are noted. 7. Degenerative changes and scoliosis of the thoracolumbar spine are noted. Abdomen X-Ray 03/20/18 00:00 CONCLUSION: Nonspecific bowel gas pattern with some mildly to moderately dilated loops of small and large bowel with air. This can be seen with an ileus. Bilateral double-J stents in place. Labs on day of discharge: Labs from last 24 hours 03/22/18 03/22/18 03/22/18 05:37 05:18 05:18 WBC 4.5 RBC 2.59 L Hgb 8.4 L Hct 24.4 L MCV 94.3 MCH 32.6 MCHC 34.5 RDW 15.2 Plt Count 119 L MPV 6.9 L Neut % (Auto) 79.1 H Lymph % (Auto) 9.2 Parke % (Auto) 10.7 H Eos % (Auto) 0.7 Baso % (Auto) 0.3 Neut # (Auto) 3.5 Lymph # (Auto) 0.4 L Parke # (Auto) 0.5 Eos # (Auto) 0.0 Baso # (Auto) 0.0 WBC Differential . Differential Comment Auto diff final Sodium 141 Potassium 3.6 Chloride 111 H Carbon Dioxide 18.6 L Anion Gap 11 BUN 12 Creatinine 0.99 Estimated GFR 69 L POC Glucose 103 Random Glucose 100 Calcium 7.3 L* Prot Corrected Calcium 8.2 L Phosphorus 2.8 Magnesium 1.8 Total Bilirubin 0.2 AST 14 L ALT 14 Alkaline Phosphatase 113 Total Protein 5.5 L Albumin 1.6 L 03/22/18 03/21/18 00:00 12:19 WBC RBC Hgb Hct MCV MCH MCHC RDW Plt Count MPV Neut % (Auto) Lymph % (Auto) Parke % (Auto) Eos % (Auto) Baso % (Auto) Neut # (Auto) Lymph # (Auto) Parke # (Auto) Eos # (Auto) Baso # (Auto) WBC Differential Differential Comment Sodium Potassium Chloride Carbon Dioxide Anion Gap BUN Creatinine Estimated GFR POC Glucose 106 117 H Random Glucose Calcium Prot Corrected Calcium Phosphorus Magnesium Total Bilirubin AST ALT Alkaline Phosphatase Total Protein Albumin - Impressions ITS Impressions Chest X-Ray 03/16/18 00:00 CONCLUSION: No acute cardiopulmonary disease. Abdomen/Pelvis CT 03/16/18 13:50 CONCLUSION: 1. Bilateral internal ureteral stents have been placed. There is some interval improvement of the bilateral hydronephrosis compared to 03/03/2018 but mild hydronephrosis is still noted bilaterally. The proximal loop of the right internal ureteral stent is located within the proximal ureter. The left internal ureteral stent appears to be more optimal in position with its proximal loop in the pelvicalyceal system. 2. Evidence of a fluid and air collection within the left hemipelvis which is unchanged in appearance compared to the previous examination and measures 6.0 x 4.1 cm. 3. The uterus is enlarged and extends into the left hemipelvis but is stable compared to the previous examination. 4. Stable left periaortic retroperitoneal lymphadenopathy. 5. Stable left pulmonary nodule measuring 8 mm. 6. Coronary artery calcifications are noted. 7. Degenerative changes and scoliosis of the thoracolumbar spine are noted. Abdomen X-Ray 03/20/18 00:00 CONCLUSION: Nonspecific bowel gas pattern with some mildly to moderately dilated loops of small and large bowel with air. This can be seen with an ileus. Bilateral double-J stents in place. Discharge Plan - Discharge Disposition Patient Disposition: /Home Health Service - Discharge Condition Condition: Good - Discharge Order Discharge Orders: Discharge Order (Routine); Ordered 03/22/18 Ordered By: Stanton Mora - Discharge Details Anticipated Discharge Date: 03/22/18 Discharge Comment: dc to home today WITH [facility] - Physicians Team Primary Care Provider: NON STAFF,PROVIDER Attending Provider: Stanton Mora Other Providers: Yakov Soares MD ; Jayy York MD ; [place] ,Insurance
--- NOTE | 2018-03-22 10:09 | P.DCO ---
- Physical Therapy Order: Evaluate and treat, Improve ambulation, Strength and gait training - Occupational Therapy Order: Evaluate and treat, Improve ADL, Gross motor coordination - Home Health Nursing Order: Medical education, Signs/symptoms of disease process, Nursing assessment with vital signs - Home Health Aide Order: To assist in: Bathing and personal care, examination proctor and meal prep - Case Management Consult Yes - Certification I have seen patient Morgan Salmeron on 03/22/18. My clinical findings support the need for the requested home health care services because: Limited mobility due to disease progression, Deconditioned with increased weakness, High risk of falls I certify that my clinical findings support that this patient is homebound because: Post-op weakness, Impaired cognitive ability/safety, Unsteady gait/balance, Need for psychosocial assistance
--- NOTE | 2018-03-22 10:55 | P.DCO ---
- Home Health Nursing Order: Signs/symptoms of disease process, Medication education-adverse effect, Nursing assessment with vital signs - Home Health Aide Order: To assist in: Bathing and personal care, baffle installer and meal prep - Case Management Consult No - Certification I have seen patient Morgan Salmeron on 03/22/18. My clinical findings support the need for the requested home health care services because: Limited mobility due to disease progression, Deconditioned with increased weakness, Need for psychosocial assistance, High risk of falls I certify that my clinical findings support that this patient is homebound because: Post-op weakness, Impaired cognitive ability/safety, Unsteady gait/balance
[2018-03-23] MEDS: Insulin NovoLIN Regular Correctional Sugar Inj SQ SCH ×4 (03:14→19:51)
[2018-03-23] MEDS: Sod Chloride 0.9% Inj 1,000 ML IV.CONT SCH ×3 (03:16→15:23)
[2018-03-23] MEDS: Morphine Sulfate Inj 2 MG/ML Vial IV.PUSH PRN ×5 (04:03→22:08)
[2018-03-23] MEDS: Sodium Chloride 0.9% 2 ML Flush BID IV.FLUSH SCH ×2 (10:07→22:01)
--- NOTE | 2018-03-23 11:38 | P.PNIM ---
Subjective Interval history: GI bleed has stabilized. Patient discharged on 03/22/2018. Pending placement. Physical Exam Vital signs: Vital Signs 03/22/18 12:00 03/22/18 14:00 03/22/18 15:24 Temperature 98.5 F Pulse Rate 83 85 Respiratory Rate 18 15 Blood Pressure 106/63 Pulse Oximetry 100 03/22/18 16:00 03/22/18 18:00 03/22/18 20:00 Temperature 98.4 F 98.8 F Pulse Rate 82 83 84 Respiratory Rate 16 18 Blood Pressure 106/64 108/65 Pulse Oximetry 100 100 03/22/18 20:42 03/22/18 22:00 03/23/18 00:00 Temperature 98.4 F Pulse Rate 85 76 Respiratory Rate 18 Blood Pressure 102/57 L Pulse Oximetry 100 99 03/23/18 04:00 03/23/18 08:00 Temperature 98.7 F 98.9 F Pulse Rate 78 82 Respiratory Rate 18 18 Blood Pressure 129/72 138/80 Pulse Oximetry 98 98 Intake & Output 03/22/18 03/23/18 03/23/18 18:59 06:59 18:59 Intake Total 2360 / 2360 250 / 250 Output Total 2200 / 2200 600 / 600 Balance 160 / 160 -350 / -350 Intake: IV 1400 / 1400 250 / 250 Protonix Inj 80 MG In NS Inj 200 / 200 100 ML @ 10 mls/hr IV.CONT CONT SAMANTHA Rx#:[id number] NS Inj 1,000 ML @ 125 mls/hr IV 1000 / 1000 250 / 250 .CONT .Q8H SAMANTHA Rx#:[id number] Magnesium Sulfate Inj 2 GM In 100 / 100 NS Inj 96 ML @ 50 mls/hr IV.SIG ONCE ONE Rx#:[id number] Rocephin Inj 1,000 MG In NS Inj 100 / 100 100 ML @ 200 mls/hr IV.SIG Q24H SAMANTHA Rx#:[id number] Oral 960 / 960 Output: Urine 2200 / 2200 600 / 600 Other: # Urine Diapers 2 Date of Last Bowel Movement 03/17/18 Narrative: GENERAL: Awake alert and oriented x3 - Urinary Catheter Management Straight Cath placed during this visit: yes, but has since been removed by the nurse Reason for continuing: Not indwelling catheter Insertion date: 03/16/18 Insertion time: 13:02 Removal date: 03/16/18 Removal time: 12:04 PUREWIC Cath placed during this visit: no Results - Labs CBC & Chem 7: 03/22/18 05:18 03/22/18 05:18 Laboratory Results - last 24 hr 03/23/18 03/23/18 03/23/18 00:02 05:52 07:58 POC Glucose 147 H 101 125 H - Procedures EGD PROCEDURE REPORT EXAM DATE: 03/17/2018 PATIENT NAME: Morgan Salmeron MR #: [id number] BIRTHDATE: 1955 ATTENDING: Bailey Trevizo MD ORDER #: [id number] POWERHOUSE HELPER: Kennedy Cabello and Keyanna Lubin STATUS: inpatient INDICATIONS: The patient is a 62 yr old female here for an EGD due to acute post hemorrhagic anemia and melena PROCEDURE PERFORMED: EGD w/ ablation MEDICATIONS: None and Per Anesthesia. TOPICAL ANESTHETIC: CONSENT: The patient understands the risks and benefits of the procedure and understands that these risks include, but are not limited to: sedation, allergic reaction, infection, perforation and/or bleeding. Alternative means of evaluation and treatment include, among others: physical exam, x-rays, and/or surgical intervention. The patient elects to proceed with this endoscopic procedure. medical equipment was checked for proper function. Hand hygiene and appropriate measures for infection prevention was taken. After the risks, benefits and alternatives of the procedure were thoroughly explained, Informed consent was verified, confirmed and timeout was successfully executed by the treatment team. The patient was anesthetized with topical anesthesia and the Pentax EG-2990i endoscope was introduced through the mouth and advanced to the first portion of the duodenum. Retroflexed views revealed large blood clot The gastroscope was then slowly withdrawn and removed. ESOPHAGUS: The mucosa of the esophagus appeared normal. STOMACH: Large blood clot covering 2/3rds of the stomach. No active bleeding. Suctioned as much as possible. DUODENUM: A large non-bleeding non-bleeding and shallow ulcer, ranging between 5-9mm in size, with surrounding edema, a pigmented spot and an adherent clot was found in the duodenal bulb. Argon plasma coagulation was applied to the site. With complete hemostasis achieved. ADVERSE EVENTS: There were no complications. IMPRESSIONS: 1. The esophagus appeared normal 2. Large blood clot covering 2/3rds of the stomach. No active bleeding. Suctioned as much as possible 3. Large non-bleeding ulcer, ranging between 5-9mm in size, was found in the duodenal bulb; Argon plasma coagulation was applied to the site; with complete hemostasis achieved 4. Retroflexed views revealed large blood clot RECOMMENDATIONS: 1. Continue PPI 2. Monitor in ICU, transfuse as needed. Clear liquid diet. IV reglan. REpeat egd tomorrow or monday depending upon clinical course. PATIENT CONDITION: stable DISPOSITION: Inpatient REPEAT EXAM: Return 1 day EGD Bailey Trevizo MD eSigned: Bailey Trevizo MD 03/17/2018 1:48 PM EGD PROCEDURE REPORT EXAM DATE: 03/19/2018 PATIENT NAME: Morgan Salmeron MR #: [id number] BIRTHDATE: 1955 ATTENDING: Bailey Trevizo MD ORDER #: [id number] POWERHOUSE HELPER: Alberto Padilla Pena, Gabriela, and Guillermina Potter STATUS: inpatient INDICATIONS: The patient is a 62 yr old female here for an EGD due to acute post hemorrhagic anemia PROCEDURE PERFORMED: EGD, diagnostic MEDICATIONS: None and Per Anesthesia. TOPICAL ANESTHETIC: CONSENT: The patient understands the risks and benefits of the procedure and understands that these risks include, but are not limited to: sedation, allergic reaction, infection, perforation and/or bleeding. Alternative means of evaluation and treatment include, among others: physical exam, x-rays, and/or surgical intervention. The patient elects to proceed with this endoscopic procedure. medical equipment was checked for proper function. Hand hygiene and appropriate measures for infection prevention was taken. After the risks, benefits and alternatives of the procedure were thoroughly explained, Informed consent was verified, confirmed and timeout was successfully executed by the treatment team. The patient was anesthetized with topical anesthesia and the Pentax EG-2990i endoscope was introduced through the mouth and advanced to the second portion of the duodenum. Retroflexed views revealed no abnormalities The gastroscope was then slowly withdrawn and removed. ESOPHAGUS: The mucosa of the esophagus appeared normal. STOMACH: Two large non-bleeding, deep and irregular shaped ulcers, measuring 20 x 30mm in size, with heaped up edges, an adherent clot and a pigmented spot were found in the gastric body, on the lesser curvature of the stomach, and in the gastric antrum. DUODENUM: Two non-bleeding, shallow and clean-based ulcers ranging between 3-5 mm in size were found in the 1st part of the duodenum. ADVERSE EVENTS: There were no complications. IMPRESSIONS: 1. The esophagus appeared normal 2. Two large ulcers, measuring 20 x 30mm in size, were found in the gastric body, on the lesser curvature of the stomach, and in the gastric antrum 3. Two ulcers ranging between 3-5 mm in size were found in the 1st part of the duodenum 4. Retroflexed views revealed no abnormalities RECOMMENDATIONS: 1. Anti-reflux regimen 2. Continue PPI 3. If rebleeds needs IR consultation with L gastric artery embolization PATIENT CONDITION: stable DISPOSITION: Inpatient REPEAT EXAM: Return 1 month EGD Bailey Trevizo MD eSigned: Bailey Trevizo MD 03/19/2018 12:13 PM Assessment and Plan - Assessment (1) Abdominal pain Code(s): R10.9 - Unspecified abdominal pain Status: Acute (2) Acute GI bleeding Code(s): K92.2 - Gastrointestinal hemorrhage, unspecified Status: Acute (3) Acute hypotension Code(s): I95.9 - Hypotension, unspecified Status: Resolved (4) Upper GI bleed Code(s): K92.2 - Gastrointestinal hemorrhage, unspecified Status: Acute (5) Cervical cancer Code(s): C53.9 - Malignant neoplasm of cervix uteri, unspecified Status: Chronic (6) Abdominal pain Code(s): R10.9 - Unspecified abdominal pain Status: Acute (7) Cervical cancer Code(s): C53.9 - Malignant neoplasm of cervix uteri, unspecified Status: Chronic (8) Diabetes Code(s): E11.9 - Type 2 diabetes mellitus without complications Status: Chronic (9) Chronic back pain Code(s): M54.9 - Dorsalgia, unspecified; G89.29 - Other chronic pain Status: Chronic (10) Diabetes mellitus Code(s): E11.9 - Type 2 diabetes mellitus without complications Status: Chronic (11) Hypertension Code(s): I10 - Essential (primary) hypertension Status: Chronic - Plan IMPRESSION: 1. Gastrointestinal bleeding.--Had first EGD on 03-17 to have a repeat EGD on N HAS LARGE ULCER 2X3 CM 2. Severe anemia secondary to acute blood loss. 3. Acute renal failure. Slow improvement 4. Hyperkalemia. 5. Abdominal pain. 6. Urinary tract infection. On Rocephin 7. Metastatic cervical cancer.-Pain control is able to tolerate 8. History of hydronephrosis, status post bilateral ureteral stent placement. 9. History of hypertension.-Borderline blood pressure at this time 10. History of diabetes mellitus. 11. Hypomagnesia will replace-a.m. labs Plan: Patient stabilized Patient discharged on 03/22/2018. Discharge to long-term facility when placement available (1) Abdominal pain Qualifiers: Abdominal location: generalized Qualified Code(s): R10.84 - Generalized abdominal pain (5) Cervical cancer Qualifiers: Malignant neoplasm of cervix location: unspecified location Qualified Code(s) : C53.9 - Malignant neoplasm of cervix uteri, unspecified
[2018-03-24] MEDS: Insulin NovoLIN Regular Correctional Sugar Inj SQ SCH ×4 (00:14→17:02)
[2018-03-24] MEDS: Sod Chloride 0.9% Inj 1,000 ML IV.CONT SCH ×4 (00:15→15:52)
[2018-03-24 06:29] LABS: Baso % (Auto) 0.2 % (0.0-2.0); Eos % (Auto) 0.4 % (0.0-4.0); Hematocrit 25.2 % (35.0-46.0); Hemoglobin 8.7 gm/dL (11.6-15.3); Lymph # (Auto) 0.7 th/mm3 (1.0-4.8); Mean Corpuscular HGB Conc 34.4 % (32.0-36.0); Mean Corpuscular Hemoglobin 34.9 pg (27.0-34.0); Mean Corpuscular Volume 101.3 fL (80.0-100.0); Mean Platelet Volume 6.7 fL (7.0-11.0); Mono # (Auto) 0.5 th/mm3 (0.0-0.9); Mono % (Auto) 8.7 % (0.0-8.0); Neut # (Auto) 4.4 th/mm3 (1.8-7.7); Neut % (Auto) 78.7 % (16.0-70.0); Platelet Count 150 th/mm3 (150-450); Red Blood Count 2.48 mil/mm3 (4.00-5.30); Red Cell Distribution Width 15.1 % (11.6-17.2); White Blood Count 5.6 th/mm3 (4.0-11.0)
[2018-03-24 06:30] LABS: Albumin 1.5 g/dL (3.4-5.0); Calcium 7.3 mg/dL (8.5-10.1); Carbon Dioxide 19.8 meq/L (21.0-32.0); Potassium 3.4 meq/L (3.5-5.1)
[2018-03-24 06:33] LABS: Total Protein 5.6 g/dL (6.4-8.2)
[2018-03-24] MEDS: Morphine Sulfate Inj 2 MG/ML Vial IV.PUSH PRN ×4 (06:44→19:52)
[2018-03-24] MEDS: Sodium Chloride 0.9% 2 ML Flush BID IV.FLUSH SCH ×2 (08:01→22:52)
--- NOTE | 2018-03-24 10:29 | P.PNIM ---
Subjective Interval history: Hemoglobin is demonstrating an upward trend over the last 2 blood checks. No need to follow further. Discharge pending. Patient cleared medically for discharge on 03/22/2018. Physical Exam Vital signs: Vital Signs 03/23/18 12:00 03/23/18 16:00 03/23/18 17:27 Temperature 97.4 F L 97.4 F L Pulse Rate 79 88 Respiratory Rate 18 20 Blood Pressure 123/72 107/61 Pulse Oximetry 98 98 98 03/23/18 20:00 03/24/18 00:00 03/24/18 04:00 Temperature 99.1 F 98.8 F 98.7 F Pulse Rate 83 79 88 Respiratory Rate 18 18 18 Blood Pressure 118/69 107/69 120/70 Pulse Oximetry 98 98 98 03/24/18 07:00 03/24/18 08:00 03/24/18 09:43 Temperature 98.3 F Pulse Rate 97 H Respiratory Rate 16 16 Blood Pressure 113/70 Pulse Oximetry 97 97 Intake & Output 03/23/18 03/24/18 03/24/18 18:59 06:59 18:59 Intake Total 1700 / 1700 1210 / 1210 Output Total 1500 / 1500 Balance 1700 / 1700 -290 / -290 Weight 64 kg Intake: IV 1100 / 1100 1210 / 1210 Protonix Inj 80 MG In NS Inj 100 / 100 100 ML @ 10 mls/hr IV.CONT CONT SAMANTHA Rx#:[id number] NS Inj 1,000 ML @ 125 mls/hr IV 1000 / 1000 1110 / 1110 .CONT .Q8H SAMANTHA Rx#:[id number] Rocephin Inj 1,000 MG In NS Inj 100 / 100 100 ML @ 200 mls/hr IV.SIG Q24H SAMANTHA Rx#:[id number] Oral 600 / 600 Output: Urine 1500 / 1500 Other: # Voids 3 Date of Last Bowel Movement 03/23/18 03/23/18 Narrative: GENERAL: Awake alert and oriented x3 - Urinary Catheter Management Straight Cath placed during this visit: yes, but has since been removed by the nurse Reason for continuing: Not indwelling catheter Insertion date: 03/16/18 Insertion time: 13:02 Removal date: 03/16/18 Removal time: 12:04 PUREWIC Cath placed during this visit: no Results - Labs CBC & Chem 7: 03/24/18 05:09 03/24/18 05:09 Laboratory Results - last 24 hr 03/23/18 03/23/18 03/24/18 12:42 17:51 00:15 WBC RBC Hgb Hct MCV MCH MCHC RDW Plt Count MPV Neut % (Auto) Lymph % (Auto) [place] % (Auto) Eos % (Auto) Baso % (Auto) Neut # (Auto) Lymph # (Auto) [place] # (Auto) Eos # (Auto) Baso # (Auto) WBC Differential Differential Comment Sodium Potassium Chloride Carbon Dioxide Anion Gap BUN Creatinine Estimated GFR POC Glucose 93 123 H 132 H Random Glucose Calcium Prot Corrected Calcium Total Bilirubin AST ALT Alkaline Phosphatase Total Protein Albumin 03/24/18 03/24/18 03/24/18 05:09 05:09 06:41 WBC 5.6 RBC 2.48 L Hgb 8.7 L Hct 25.2 L MCV 101.3 H D MCH 34.9 H MCHC 34.4 RDW 15.1 Plt Count 150 MPV 6.7 L Neut % (Auto) 78.7 H Lymph % (Auto) 12.0 [place] % (Auto) 8.7 H Eos % (Auto) 0.4 Baso % (Auto) 0.2 Neut # (Auto) 4.4 Lymph # (Auto) 0.7 L [place] # (Auto) 0.5 Eos # (Auto) 0.0 Baso # (Auto) 0.0 WBC Differential . Differential Comment Auto diff final Sodium 143 Potassium 3.4 L Chloride 112 H Carbon Dioxide 19.8 L Anion Gap 11 BUN 10 Creatinine 1.01 H Estimated GFR 67 L POC Glucose 115 H Random Glucose 107 H Calcium 7.3 L* Prot Corrected Calcium 8.1 L Total Bilirubin 0.2 AST 12 L ALT 15 Alkaline Phosphatase 116 Total Protein 5.6 L Albumin 1.5 L - Procedures EGD PROCEDURE REPORT EXAM DATE: 03/17/2018 PATIENT NAME: Morgan Salmeron MR #: [id number] BIRTHDATE: 1955 ATTENDING: Bailey Trevizo MD ORDER #: [id number] LAST REPAIRER HELPER: Kennedy Cabello and Keyanna Lubin STATUS: inpatient INDICATIONS: The patient is a 62 yr old female here for an EGD due to acute post hemorrhagic anemia and melena PROCEDURE PERFORMED: EGD w/ ablation MEDICATIONS: None and Per Anesthesia. TOPICAL ANESTHETIC: CONSENT: The patient understands the risks and benefits of the procedure and understands that these risks include, but are not limited to: sedation, allergic reaction, infection, perforation and/or bleeding. Alternative means of evaluation and treatment include, among others: physical exam, x-rays, and/or surgical intervention. The patient elects to proceed with this endoscopic procedure. medical equipment was checked for proper function. Hand hygiene and appropriate measures for infection prevention was taken. After the risks, benefits and alternatives of the procedure were thoroughly explained, Informed consent was verified, confirmed and timeout was successfully executed by the treatment team. The patient was anesthetized with topical anesthesia and the Oriense EG-2990i endoscope was introduced through the mouth and advanced to the first portion of the duodenum. Retroflexed views revealed large blood clot The gastroscope was then slowly withdrawn and removed. ESOPHAGUS: The mucosa of the esophagus appeared normal. STOMACH: Large blood clot covering 2/3rds of the stomach. No active bleeding. Suctioned as much as possible. DUODENUM: A large non-bleeding non-bleeding and shallow ulcer, ranging between 5-9mm in size, with surrounding edema, a pigmented spot and an adherent clot was found in the duodenal bulb. Argon plasma coagulation was applied to the site. With complete hemostasis achieved. ADVERSE EVENTS: There were no complications. IMPRESSIONS: 1. The esophagus appeared normal 2. Large blood clot covering 2/3rds of the stomach. No active bleeding. Suctioned as much as possible 3. Large non-bleeding ulcer, ranging between 5-9mm in size, was found in the duodenal bulb; Argon plasma coagulation was applied to the site; with complete hemostasis achieved 4. Retroflexed views revealed large blood clot RECOMMENDATIONS: 1. Continue PPI 2. Monitor in ICU, transfuse as needed. Clear liquid diet. IV reglan. REpeat egd tomorrow or monday depending upon clinical course. PATIENT CONDITION: stable DISPOSITION: Inpatient REPEAT EXAM: Return 1 day EGD Bailey Trevizo MD eSigned: Bailey Trevizo MD 03/17/2018 1:48 PM EGD PROCEDURE REPORT EXAM DATE: 03/19/2018 PATIENT NAME: Morgan Salmeron MR #: [id number] BIRTHDATE: 1955 ATTENDING: Bailey Trevizo MD ORDER #: [id number] LAST REPAIRER HELPER: Alberto Padilla Pena, Gabriela, and Guillermina Potter STATUS: inpatient INDICATIONS: The patient is a 62 yr old female here for an EGD due to acute post hemorrhagic anemia PROCEDURE PERFORMED: EGD, diagnostic MEDICATIONS: None and Per Anesthesia. TOPICAL ANESTHETIC: CONSENT: The patient understands the risks and benefits of the procedure and understands that these risks include, but are not limited to: sedation, allergic reaction, infection, perforation and/or bleeding. Alternative means of evaluation and treatment include, among others: physical exam, x-rays, and/or surgical intervention. The patient elects to proceed with this endoscopic procedure. medical equipment was checked for proper function. Hand hygiene and appropriate measures for infection prevention was taken. After the risks, benefits and alternatives of the procedure were thoroughly explained, Informed consent was verified, confirmed and timeout was successfully executed by the treatment team. The patient was anesthetized with topical anesthesia and the Pentax EG-2990i endoscope was introduced through the mouth and advanced to the second portion of the duodenum. Retroflexed views revealed no abnormalities The gastroscope was then slowly withdrawn and removed. ESOPHAGUS: The mucosa of the esophagus appeared normal. STOMACH: Two large non-bleeding, deep and irregular shaped ulcers, measuring 20 x 30mm in size, with heaped up edges, an adherent clot and a pigmented spot were found in the gastric body, on the lesser curvature of the stomach, and in the gastric antrum. DUODENUM: Two non-bleeding, shallow and clean-based ulcers ranging between 3-5 mm in size were found in the 1st part of the duodenum. ADVERSE EVENTS: There were no complications. IMPRESSIONS: 1. The esophagus appeared normal 2. Two large ulcers, measuring 20 x 30mm in size, were found in the gastric body, on the lesser curvature of the stomach, and in the gastric antrum 3. Two ulcers ranging between 3-5 mm in size were found in the 1st part of the duodenum 4. Retroflexed views revealed no abnormalities RECOMMENDATIONS: 1. Anti-reflux regimen 2. Continue PPI 3. If rebleeds needs IR consultation with L gastric artery embolization PATIENT CONDITION: stable DISPOSITION: Inpatient REPEAT EXAM: Return 1 month EGD Bailey Trevizo MD eSigned: Bailey Trevizo MD 03/19/2018 12:13 PM Assessment and Plan - Assessment (1) Abdominal pain Code(s): R10.9 - Unspecified abdominal pain Status: Acute (2) Acute GI bleeding Code(s): K92.2 - Gastrointestinal hemorrhage, unspecified Status: Acute (3) Acute hypotension Code(s): I95.9 - Hypotension, unspecified Status: Resolved (4) Upper GI bleed Code(s): K92.2 - Gastrointestinal hemorrhage, unspecified Status: Acute (5) Cervical cancer Code(s): C53.9 - Malignant neoplasm of cervix uteri, unspecified Status: Chronic (6) Abdominal pain Code(s): R10.9 - Unspecified abdominal pain Status: Acute (7) Cervical cancer Code(s): C53.9 - Malignant neoplasm of cervix uteri, unspecified Status: Chronic (8) Diabetes Code(s): E11.9 - Type 2 diabetes mellitus without complications Status: Chronic (9) Chronic back pain Code(s): M54.9 - Dorsalgia, unspecified; G89.29 - Other chronic pain Status: Chronic (10) Diabetes mellitus Code(s): E11.9 - Type 2 diabetes mellitus without complications Status: Chronic (11) Hypertension Code(s): I10 - Essential (primary) hypertension Status: Chronic - Plan IMPRESSION: 1. Gastrointestinal bleeding.--Had first EGD on 03-17 to have a repeat EGD on N HAS LARGE ULCER 2X3 CM 2. Severe anemia secondary to acute blood loss. 3. Acute renal failure. Slow improvement 4. Hyperkalemia. 5. Abdominal pain. 6. Urinary tract infection. On Rocephin 7. Metastatic cervical cancer.-Pain control is able to tolerate 8. History of hydronephrosis, status post bilateral ureteral stent placement. 9. History of hypertension.-Borderline blood pressure at this time 10. History of diabetes mellitus. 11. Hypomagnesia will replace-a.m. labs Plan: Patient stabilized Patient discharged on 03/22/2018. [facility] (1) Abdominal pain Qualifiers: Abdominal location: generalized Qualified Code(s): R10.84 - Generalized abdominal pain (5) Cervical cancer Qualifiers: Malignant neoplasm of cervix location: unspecified location Qualified Code(s) : C53.9 - Malignant neoplasm of cervix uteri, unspecified
[2018-03-25] MEDS: Insulin NovoLIN Regular Correctional Sugar Inj SQ SCH ×5 (00:21→23:52)
[2018-03-25] MEDS: Sod Chloride 0.9% Inj 1,000 ML IV.CONT SCH ×3 (01:14→17:01)
[2018-03-25] MEDS: Morphine Sulfate Inj 2 MG/ML Vial IV.PUSH PRN ×5 (01:22→22:25)
[2018-03-25] MEDS: Sodium Chloride 0.9% 2 ML Flush BID IV.FLUSH SCH ×2 (08:02→20:06)
--- NOTE | 2018-03-25 11:22 | P.PNIM ---
Subjective Interval history: No acute changes. Continue waiting for placement. Patient medically discharged on 03/22/2018. Physical Exam Vital signs: Vital Signs 03/24/18 12:00 03/24/18 13:15 03/24/18 16:00 Temperature 98.0 F 98.5 F Pulse Rate 87 91 H Respiratory Rate 16 16 16 Blood Pressure 112/65 121/65 Pulse Oximetry 99 99 03/24/18 17:47 03/24/18 20:00 03/24/18 20:31 Temperature 98.4 F Pulse Rate 92 H 52 L Respiratory Rate 16 Blood Pressure 118/64 Pulse Oximetry 99 98 03/25/18 00:00 03/25/18 04:00 03/25/18 07:43 Temperature 98 F 98 F Pulse Rate 52 L 72 Respiratory Rate 16 16 16 Blood Pressure 121/67 124/68 Pulse Oximetry 97 98 03/25/18 08:00 03/25/18 09:53 03/25/18 10:59 Temperature 98 F Pulse Rate 84 Respiratory Rate 20 16 Blood Pressure 138/78 Pulse Oximetry 98 98 Intake & Output 03/24/18 03/25/18 03/25/18 18:59 06:59 18:59 Intake Total 1100 / 1100 1000 / 1000 1000 / 1000 Output Total 600 / 600 Balance 1100 / 1100 400 / 400 1000 / 1000 Weight 64 kg Intake: IV 1100 / 1100 1000 / 1000 1000 / 1000 NS Inj 1,000 ML @ 125 mls/hr IV 1000 / 1000 1000 / 1000 1000 / 1000 .CONT .Q8H SAMANTHA Rx#:[id number] Rocephin Inj 1,000 MG In NS Inj 100 / 100 100 ML @ 200 mls/hr IV.SIG Q24H SAMANTHA Rx#:[id number] Output: Urine Amount (Catheter) 600 / 600 PUREWIC 600 / 600 Other: # Incontinent Voids 3 Date of Last Bowel Movement 03/24/18 03/25/18 03/23/18 # Bowel Movements 1 Narrative: GENERAL: Awake alert and oriented x3 - Urinary Catheter Management Straight Cath placed during this visit: yes, but has since been removed by the nurse Reason for continuing: Not indwelling catheter Insertion date: 03/16/18 Insertion time: 13:02 Removal date: 03/16/18 Removal time: 12:04 PUREWIC Cath placed during this visit: no Results - Labs CBC & Chem 7: 03/24/18 05:09 03/24/18 05:09 Laboratory Results - last 24 hr 03/24/18 03/24/18 03/24/18 11:26 15:54 23:42 POC Glucose 191 H 150 H 139 H 03/25/18 03/25/18 05:47 10:59 POC Glucose 120 H 193 H - Procedures EGD PROCEDURE REPORT EXAM DATE: 03/17/2018 PATIENT NAME: Morgan Salmeron MR #: [id number] BIRTHDATE: 1955 ATTENDING: Bailey Trevizo MD ORDER #: [id number] [employer]OCK APPLICATOR: Kennedy Cabello and Keyanna Lubin STATUS: inpatient INDICATIONS: The patient is a 62 yr old female here for an EGD due to acute post hemorrhagic anemia and melena PROCEDURE PERFORMED: EGD w/ ablation MEDICATIONS: None and Per Anesthesia. TOPICAL ANESTHETIC: CONSENT: The patient understands the risks and benefits of the procedure and understands that these risks include, but are not limited to: sedation, allergic reaction, infection, perforation and/or bleeding. Alternative means of evaluation and treatment include, among others: physical exam, x-rays, and/or surgical intervention. The patient elects to proceed with this endoscopic procedure. medical equipment was checked for proper function. Hand hygiene and appropriate measures for infection prevention was taken. After the risks, benefits and alternatives of the procedure were thoroughly explained, Informed consent was verified, confirmed and timeout was successfully executed by the treatment team. The patient was anesthetized with topical anesthesia and the Pentax EG-2990i endoscope was introduced through the mouth and advanced to the first portion of the duodenum. Retroflexed views revealed large blood clot The gastroscope was then slowly withdrawn and removed. ESOPHAGUS: The mucosa of the esophagus appeared normal. STOMACH: Large blood clot covering 2/3rds of the stomach. No active bleeding. Suctioned as much as possible. DUODENUM: A large non-bleeding non-bleeding and shallow ulcer, ranging between 5-9mm in size, with surrounding edema, a pigmented spot and an adherent clot was found in the duodenal bulb. Argon plasma coagulation was applied to the site. With complete hemostasis achieved. ADVERSE EVENTS: There were no complications. IMPRESSIONS: 1. The esophagus appeared normal 2. Large blood clot covering 2/3rds of the stomach. No active bleeding. Suctioned as much as possible 3. Large non-bleeding ulcer, ranging between 5-9mm in size, was found in the duodenal bulb; Argon plasma coagulation was applied to the site; with complete hemostasis achieved 4. Retroflexed views revealed large blood clot RECOMMENDATIONS: 1. Continue PPI 2. Monitor in ICU, transfuse as needed. Clear liquid diet. IV reglan. REpeat egd tomorrow or monday depending upon clinical course. PATIENT CONDITION: stable DISPOSITION: Inpatient REPEAT EXAM: Return 1 day EGD Bailey Trevizo MD eSigned: Bailey Trevizo MD 03/17/2018 1:48 PM EGD PROCEDURE REPORT EXAM DATE: 03/19/2018 PATIENT NAME: Morgan Salmeron MR #: [id number] BIRTHDATE: 1955 ATTENDING: Bailey Trevizo MD ORDER #: [id number] SHE[employer]ROCK APPLICATOR: Alberto Padilla Pena, Gabriela, and Guillermina Potter STATUS: inpatient INDICATIONS: The patient is a 62 yr old female here for an EGD due to acute post hemorrhagic anemia PROCEDURE PERFORMED: EGD, diagnostic MEDICATIONS: None and Per Anesthesia. TOPICAL ANESTHETIC: CONSENT: The patient understands the risks and benefits of the procedure and understands that these risks include, but are not limited to: sedation, allergic reaction, infection, perforation and/or bleeding. Alternative means of evaluation and treatment include, among others: physical exam, x-rays, and/or surgical intervention. The patient elects to proceed with this endoscopic procedure. medical equipment was checked for proper function. Hand hygiene and appropriate measures for infection prevention was taken. After the risks, benefits and alternatives of the procedure were thoroughly explained, Informed consent was verified, confirmed and timeout was successfully executed by the treatment team. The patient was anesthetized with topical anesthesia and the Pentax EG-2990i endoscope was introduced through the mouth and advanced to the second portion of the duodenum. Retroflexed views revealed no abnormalities The gastroscope was then slowly withdrawn and removed. ESOPHAGUS: The mucosa of the esophagus appeared normal. STOMACH: Two large non-bleeding, deep and irregular shaped ulcers, measuring 20 x 30mm in size, with heaped up edges, an adherent clot and a pigmented spot were found in the gastric body, on the lesser curvature of the stomach, and in the gastric antrum. DUODENUM: Two non-bleeding, shallow and clean-based ulcers ranging between 3-5 mm in size were found in the 1st part of the duodenum. ADVERSE EVENTS: There were no complications. IMPRESSIONS: 1. The esophagus appeared normal 2. Two large ulcers, measuring 20 x 30mm in size, were found in the gastric body, on the lesser curvature of the stomach, and in the gastric antrum 3. Two ulcers ranging between 3-5 mm in size were found in the 1st part of the duodenum 4. Retroflexed views revealed no abnormalities RECOMMENDATIONS: 1. Anti-reflux regimen 2. Continue PPI 3. If rebleeds needs IR consultation with L gastric artery embolization PATIENT CONDITION: stable DISPOSITION: Inpatient REPEAT EXAM: Return 1 month EGD Bailey Trevizo MD eSigned: Bailey Trevizo MD 03/19/2018 12:13 PM Assessment and Plan - Assessment (1) Abdominal pain Code(s): R10.9 - Unspecified abdominal pain Status: Acute (2) Acute GI bleeding Code(s): K92.2 - Gastrointestinal hemorrhage, unspecified Status: Acute (3) Acute hypotension Code(s): I95.9 - Hypotension, unspecified Status: Resolved (4) Upper GI bleed Code(s): K92.2 - Gastrointestinal hemorrhage, unspecified Status: Acute (5) Cervical cancer Code(s): C53.9 - Malignant neoplasm of cervix uteri, unspecified Status: Chronic (6) Abdominal pain Code(s): R10.9 - Unspecified abdominal pain Status: Acute (7) Cervical cancer Code(s): C53.9 - Malignant neoplasm of cervix uteri, unspecified Status: Chronic (8) Diabetes Code(s): E11.9 - Type 2 diabetes mellitus without complications Status: Chronic (9) Chronic back pain Code(s): M54.9 - Dorsalgia, unspecified; G89.29 - Other chronic pain Status: Chronic (10) Diabetes mellitus Code(s): E11.9 - Type 2 diabetes mellitus without complications Status: Chronic (11) Hypertension Code(s): I10 - Essential (primary) hypertension Status: Chronic - Plan 62-year-old male admitted secondary to GI bleed IMPRESSION: 1. Gastrointestinal bleeding.--Had first EGD on 03-17 to have a repeat EGD on N HAS LARGE ULCER 2X3 CM 2. Severe anemia secondary to acute blood loss. 3. Acute renal failure. Slow improvement 4. Hyperkalemia. 5. Abdominal pain. 6. Urinary tract infection. On Rocephin 7. Metastatic cervical cancer.-Pain control is able to tolerate 8. History of hydronephrosis, status post bilateral ureteral stent placement. 9. History of hypertension.-Borderline blood pressure at this time 10. History of diabetes mellitus. 11. Hypomagnesia will replace-a.m. labs Plan: Patient stabilized Patient discharged on 03/22/2018. [facility] (1) Abdominal pain Qualifiers: Abdominal location: generalized Qualified Code(s): R10.84 - Generalized abdominal pain (5) Cervical cancer Qualifiers: Malignant neoplasm of cervix location: unspecified location Qualified Code(s) : C53.9 - Malignant neoplasm of cervix uteri, unspecified
[2018-03-26] MEDS: Sod Chloride 0.9% Inj 1,000 ML IV.CONT SCH ×2 (03:23→10:05)
[2018-03-26] MEDS: Insulin NovoLIN Regular Correctional Sugar Inj SQ SCH ×4 (05:33→23:53)
[2018-03-26] MEDS: Morphine Sulfate Inj 2 MG/ML Vial IV.PUSH PRN ×2 (05:39→10:10)
[2018-03-26] MEDS: Sodium Chloride 0.9% 2 ML Flush BID IV.FLUSH SCH ×2 (10:05→21:02)
--- NOTE | 2018-03-26 11:54 | P.PNIM ---
Subjective Interval history: The patient was sitting up in a chair. She was having her blood sugar checked. Her cousin was at the bedside. She had no acute complaints. Discussed with nursing. Physical Exam Vital signs: Vital Signs 03/25/18 12:00 03/25/18 16:00 03/25/18 17:03 Temperature 98.8 F 98.3 F Pulse Rate 91 H 91 H Respiratory Rate 20 20 16 Blood Pressure 111/66 122/66 Pulse Oximetry 98 98 03/25/18 18:55 03/25/18 20:00 03/25/18 20:30 Temperature 98 F Pulse Rate 93 H Respiratory Rate 16 Blood Pressure 123/68 Pulse Oximetry 98 100 98 03/26/18 00:00 03/26/18 03:56 03/26/18 04:00 Temperature 98 F 98.1 F Pulse Rate 84 90 78 Respiratory Rate 17 17 Blood Pressure 126/66 126/68 Pulse Oximetry 100 100 03/26/18 08:00 Temperature 98.0 F Pulse Rate 86 Respiratory Rate 14 Blood Pressure 133/72 Pulse Oximetry 98 Intake & Output 03/25/18 03/26/18 03/26/18 18:59 06:59 18:59 Intake Total 1100 / 1100 1000 / 1000 Output Total 1800 / 1800 Balance 1100 / 1100 -800 / -800 Weight 64 kg Intake: IV 1100 / 1100 1000 / 1000 NS Inj 1,000 ML @ 125 mls/hr IV 1000 / 1000 1000 / 1000 .CONT .Q8H SAMANTHA Rx#:[id number] Rocephin Inj 1,000 MG In NS Inj 100 / 100 100 ML @ 200 mls/hr IV.SIG Q24H SAMANTHA Rx#:[id number] Output: Urine Amount (Catheter) 1800 / 1800 PUREWIC 1800 / 1800 Other: # Voids 1 Date of Last Bowel Movement 03/23/18 03/25/18 Narrative: GENERAL: No distress. SKIN: Warm and dry. HEAD: Atraumatic. Normocephalic. EYES: Pupils equal and round. No scleral icterus. No injection or drainage. EOMI ENT: No nasal bleeding or discharge. Mucous membranes pink and moist. Tongue is midline NECK: Trachea midline. No JVD. Neck is supple CARDIOVASCULAR: Regular rate and rhythm. S1-S2 no S3 or S4 RESPIRATORY: No accessory muscle use. Clear to auscultation. Breath sounds equal bilaterally. GASTROINTESTINAL: Abdomen soft, non-tender, nondistended. Hepatic and splenic margins not palpable. MUSCULOSKELETAL: Extremities without clubbing, cyanosis, or edema. No obvious deformities. NEUROLOGICAL: Awake and alert. No obvious cranial nerve deficits. Motor grossly within normal limits. Five out of 5 muscle strength in the arms and legs. Normal speech. - Urinary Catheter Management Straight Cath placed during this visit: yes, but has since been removed by the nurse Reason for continuing: Not indwelling catheter Insertion date: 03/16/18 Insertion time: 13:02 Removal date: 03/16/18 Removal time: 12:04 PUREWIC Cath placed during this visit: no Results - Labs CBC & Chem 7: 03/24/18 05:09 03/24/18 05:09 Laboratory Results - last 24 hr 03/25/18 03/25/18 03/26/18 17:00 23:35 05:30 POC Glucose 160 H 181 H 126 H 03/26/18 11:37 POC Glucose 163 H - Procedures EGD PROCEDURE REPORT EXAM DATE: 03/17/2018 PATIENT NAME: Morgan Salmeron MR #: [id number] BIRTHDATE: 1955 ATTENDING: Bailey Trevizo MD ORDER #: [id number] SUPERVISOR FRAME SAMPLE AND PATTERN: Kennedy Cabello and Keyanna Lubin STATUS: inpatient INDICATIONS: The patient is a 62 yr old female here for an EGD due to acute post hemorrhagic anemia and melena PROCEDURE PERFORMED: EGD w/ ablation MEDICATIONS: None and Per Anesthesia. TOPICAL ANESTHETIC: CONSENT: The patient understands the risks and benefits of the procedure and understands that these risks include, but are not limited to: sedation, allergic reaction, infection, perforation and/or bleeding. Alternative means of evaluation and treatment include, among others: physical exam, x-rays, and/or surgical intervention. The patient elects to proceed with this endoscopic procedure. medical equipment was checked for proper function. Hand hygiene and appropriate measures for infection prevention was taken. After the risks, benefits and alternatives of the procedure were thoroughly explained, Informed consent was verified, confirmed and timeout was successfully executed by the treatment team. The patient was anesthetized with topical anesthesia and the Pentax EG-2990i endoscope was introduced through the mouth and advanced to the first portion of the duodenum. Retroflexed views revealed large blood clot The gastroscope was then slowly withdrawn and removed. ESOPHAGUS: The mucosa of the esophagus appeared normal. STOMACH: Large blood clot covering 2/3rds of the stomach. No active bleeding. Suctioned as much as possible. DUODENUM: A large non-bleeding non-bleeding and shallow ulcer, ranging between 5-9mm in size, with surrounding edema, a pigmented spot and an adherent clot was found in the duodenal bulb. Argon plasma coagulation was applied to the site. With complete hemostasis achieved. ADVERSE EVENTS: There were no complications. IMPRESSIONS: 1. The esophagus appeared normal 2. Large blood clot covering 2/3rds of the stomach. No active bleeding. Suctioned as much as possible 3. Large non-bleeding ulcer, ranging between 5-9mm in size, was found in the duodenal bulb; Argon plasma coagulation was applied to the site; with complete hemostasis achieved 4. Retroflexed views revealed large blood clot RECOMMENDATIONS: 1. Continue PPI 2. Monitor in ICU, transfuse as needed. Clear liquid diet. IV reglan. REpeat egd tomorrow or monday depending upon clinical course. PATIENT CONDITION: stable DISPOSITION: Inpatient REPEAT EXAM: Return 1 day EGD Bailey Trevizo MD eSigned: Bailey Trevizo MD 03/17/2018 1:48 PM EGD PROCEDURE REPORT EXAM DATE: 03/19/2018 PATIENT NAME: Morgan Salmeron MR #: [id number] BIRTHDATE: 1955 ATTENDING: Bailey Trevizo MD ORDER #: [id number] SUPERVISOR FRAME SAMPLE AND PATTERN: Alberto Padilla Pena, Gabriela, and Guillermina Potter STATUS: inpatient INDICATIONS: The patient is a 62 yr old female here for an EGD due to acute post hemorrhagic anemia PROCEDURE PERFORMED: EGD, diagnostic MEDICATIONS: None and Per Anesthesia. TOPICAL ANESTHETIC: CONSENT: The patient understands the risks and benefits of the procedure and understands that these risks include, but are not limited to: sedation, allergic reaction, infection, perforation and/or bleeding. Alternative means of evaluation and treatment include, among others: physical exam, x-rays, and/or surgical intervention. The patient elects to proceed with this endoscopic procedure. medical equipment was checked for proper function. Hand hygiene and appropriate measures for infection prevention was taken. After the risks, benefits and alternatives of the procedure were thoroughly explained, Informed consent was verified, confirmed and timeout was successfully executed by the treatment team. The patient was anesthetized with topical anesthesia and the Pentax EG-2990i endoscope was introduced through the mouth and advanced to the second portion of the duodenum. Retroflexed views revealed no abnormalities The gastroscope was then slowly withdrawn and removed. ESOPHAGUS: The mucosa of the esophagus appeared normal. STOMACH: Two large non-bleeding, deep and irregular shaped ulcers, measuring 20 x 30mm in size, with heaped up edges, an adherent clot and a pigmented spot were found in the gastric body, on the lesser curvature of the stomach, and in the gastric antrum. DUODENUM: Two non-bleeding, shallow and clean-based ulcers ranging between 3-5 mm in size were found in the 1st part of the duodenum. ADVERSE EVENTS: There were no complications. IMPRESSIONS: 1. The esophagus appeared normal 2. Two large ulcers, measuring 20 x 30mm in size, were found in the gastric body, on the lesser curvature of the stomach, and in the gastric antrum 3. Two ulcers ranging between 3-5 mm in size were found in the 1st part of the duodenum 4. Retroflexed views revealed no abnormalities RECOMMENDATIONS: 1. Anti-reflux regimen 2. Continue PPI 3. If rebleeds needs IR consultation with L gastric artery embolization PATIENT CONDITION: stable DISPOSITION: Inpatient REPEAT EXAM: Return 1 month EGD Bailey Trevizo MD eSigned: Bailey Trevizo MD 03/19/2018 12:13 PM Assessment and Plan - Assessment (1) Abdominal pain Code(s): R10.9 - Unspecified abdominal pain Status: Acute (2) Acute GI bleeding Code(s): K92.2 - Gastrointestinal hemorrhage, unspecified Status: Acute (3) Acute hypotension Code(s): I95.9 - Hypotension, unspecified Status: Resolved (4) Upper GI bleed Code(s): K92.2 - Gastrointestinal hemorrhage, unspecified Status: Acute (5) Cervical cancer Code(s): C53.9 - Malignant neoplasm of cervix uteri, unspecified Status: Chronic (6) Abdominal pain Code(s): R10.9 - Unspecified abdominal pain Status: Acute (7) Cervical cancer Code(s): C53.9 - Malignant neoplasm of cervix uteri, unspecified Status: Chronic (8) Diabetes Code(s): E11.9 - Type 2 diabetes mellitus without complications Status: Chronic (9) Chronic back pain Code(s): M54.9 - Dorsalgia, unspecified; G89.29 - Other chronic pain Status: Chronic (10) Diabetes mellitus Code(s): E11.9 - Type 2 diabetes mellitus without complications Status: Chronic (11) Hypertension Code(s): I10 - Essential (primary) hypertension Status: Chronic - Plan 1. Gastrointestinal bleeding.--Had first EGD on 03-17; repeat EGD on 03-19 showed large ulcer 2X3 CM 2. Severe anemia secondary to acute blood loss 3. Acute renal failure. Slow improvement 4. Hyperkalemia 5. Abdominal pain 6. Urinary tract infection. On Rocephin 7. Metastatic cervical cancer.-Pain control is able to tolerate 8. History of hydronephrosis, status post bilateral ureteral stent placement 9. History of hypertension.-Borderline blood pressure at this time 10. History of diabetes mellitus. 11. Hypomagnesia Plan: Patient stabilized Patient discharged on 03/22/2018. Discharge to [facility] facility when placement available Check labs in AM (1) Abdominal pain Qualifiers: Abdominal location: generalized Qualified Code(s): R10.84 - Generalized abdominal pain (5) Cervical cancer Qualifiers: Malignant neoplasm of cervix location: unspecified location Qualified Code(s) : C53.9 - Malignant neoplasm of cervix uteri, unspecified
[2018-03-26] MEDS: Polyethylene Glycol 3350 17 GM Packet PO SCH (13:19)
[2018-03-26 13:52] LABS: Baso % (Auto) 0.3 % (0.0-2.0); Eos % (Auto) 0.3 % (0.0-4.0); Hematocrit 23.4 % (35.0-46.0); Hemoglobin 8.2 gm/dL (11.6-15.3); Lymph # (Auto) 0.6 th/mm3 (1.0-4.8); Lymph % (Auto) 9.3 % (9.0-44.0); Mean Corpuscular Hemoglobin 31.9 pg (27.0-34.0); Mean Corpuscular Volume 91.2 fL (80.0-100.0); Mean Platelet Volume 6.6 fL (7.0-11.0); Mono # (Auto) 0.4 th/mm3 (0.0-0.9); Neut # (Auto) 5.6 th/mm3 (1.8-7.7); Neut % (Auto) 84.1 % (16.0-70.0); Platelet Count 168 th/mm3 (150-450); Red Blood Count 2.57 mil/mm3 (4.00-5.30); Red Cell Distribution Width 14.9 % (11.6-17.2); White Blood Count 6.6 th/mm3 (4.0-11.0)
[2018-03-26 14:09] LABS: Albumin 1.6 g/dL (3.4-5.0); Anion Gap 9 meq/L (5-15); Aspartate Aminotransferase 12 U/L (15-37); Blood Urea Nitrogen 12 mg/dL (7-18); Calcium 8.1 mg/dL (8.5-10.1); Carbon Dioxide 20.6 meq/L (21.0-32.0); Chloride 111 meq/L (98-107); Glomerular Filtration Rate Greater Than 89 mL/min (>89); Glucose,Random 147 mg/dL (74-106); Potassium 3.2 meq/L (3.5-5.1); Sodium 141 meq/L (136-145)
[2018-03-26 14:11] LABS: Alanine Aminotransferase 13 U/L (10-53)
[2018-03-26 14:13] LABS: Alkaline Phosphatase 113 U/L (45-117); Total Protein 5.9 g/dL (6.4-8.2)
[2018-03-27] MEDS: Insulin NovoLIN Regular Correctional Sugar Inj SQ SCH ×4 (07:49→23:30)
[2018-03-27 09:09] LABS: Hematocrit 23.2 % (35.0-46.0); Hemoglobin 8.2 gm/dL (11.6-15.3); Mean Corpuscular HGB Conc 35.3 % (32.0-36.0); Mean Corpuscular Hemoglobin 32.9 pg (27.0-34.0); Mean Corpuscular Volume 93.1 fL (80.0-100.0); Mean Platelet Volume 6.8 fL (7.0-11.0); Platelet Count 178 th/mm3 (150-450); Red Blood Count 2.49 mil/mm3 (4.00-5.30); Red Cell Distribution Width 15.1 % (11.6-17.2); White Blood Count 6.1 th/mm3 (4.0-11.0)
[2018-03-27] MEDS: Polyethylene Glycol 3350 17 GM Packet PO SCH (09:09)
[2018-03-27] MEDS: Sodium Chloride 0.9% 2 ML Flush BID IV.FLUSH SCH ×2 (09:10→23:23)
[2018-03-27 09:38] LABS: Anion Gap 9 meq/L (5-15); Blood Urea Nitrogen 11 mg/dL (7-18); Calcium 8.5 mg/dL (8.5-10.1); Carbon Dioxide 22.8 meq/L (21.0-32.0); Chloride 109 meq/L (98-107); Glomerular Filtration Rate Greater Than 89 mL/min (>89); Glucose,Random 109 mg/dL (74-106); Potassium 3.2 meq/L (3.5-5.1); Sodium 141 meq/L (136-145)
[2018-03-27] MEDS ORDERED: Potassium Chloride 25 MEQ Effervescent Tablet PO ONE (12:22)
--- NOTE | 2018-03-27 12:24 | P.PNIM ---
Subjective Interval history: The patient was resting. She said she was too weak to go home. Her cousin was at the bedside. Her cousin thought that the patient was depressed. The patient did not want to take MiraLAX. Discussed with nursing. Physical Exam Vital signs: Vital Signs 03/26/18 16:00 03/26/18 20:00 03/27/18 00:00 Temperature 98.7 F 98.1 F 98.8 F Pulse Rate 73 74 71 Respiratory Rate 18 Blood Pressure 129/79 121/69 109/59 L Pulse Oximetry 98 98 97 03/27/18 04:00 03/27/18 08:00 Temperature 98 F 99.1 F Pulse Rate 82 78 Respiratory Rate 18 20 Blood Pressure 124/58 L 137/77 Pulse Oximetry 97 97 Intake & Output 03/26/18 03/27/18 03/27/18 18:59 06:59 18:59 Intake Total 1100 / 1100 240 / 240 Output Total 920 / 920 360 / 360 Balance 180 / 180 -120 / -120 Intake: IV 1100 / 1100 NS Inj 1,000 ML @ 125 mls/hr IV 1000 / 1000 .CONT .Q8H SAMANTHA Rx#:[id number] Rocephin Inj 1,000 MG In NS Inj 100 / 100 100 ML @ 200 mls/hr IV.SIG Q24H SAMANTHA Rx#:[id number] Oral 240 / 240 Output: Urine Amount (Catheter) 920 / 920 360 / 360 PUREWIC 920 / 920 360 / 360 Other: # Voids 2 2 # Incontinent Voids 3 Narrative: GENERAL: No distress. SKIN: Warm and dry. HEAD: Atraumatic. Normocephalic. EYES: Pupils equal and round. No scleral icterus. No injection or drainage. EOMI ENT: No nasal bleeding or discharge. Mucous membranes pink and moist. Tongue is midline NECK: Trachea midline. No JVD. Neck is supple CARDIOVASCULAR: Regular rate and rhythm. S1-S2 no S3 or S4 RESPIRATORY: No accessory muscle use. Clear to auscultation. Breath sounds equal bilaterally. GASTROINTESTINAL: Abdomen soft, non-tender, nondistended. Hepatic and splenic margins not palpable. MUSCULOSKELETAL: Extremities without clubbing, cyanosis, or edema. No obvious deformities. NEUROLOGICAL: Awake and alert. No obvious cranial nerve deficits. Motor grossly within normal limits. Five out of 5 muscle strength in the arms and legs. Normal speech. - Urinary Catheter Management Straight Cath placed during this visit: yes, but has since been removed by the nurse Reason for continuing: Not indwelling catheter Insertion date: 03/16/18 Insertion time: 13:02 Removal date: 03/16/18 Removal time: 12:04 PUREWIC Cath placed during this visit: no Results - Labs CBC & Chem 7: 03/27/18 07:55 03/27/18 07:55 Laboratory Results - last 24 hr 03/26/18 03/26/18 03/26/18 13:26 13:26 17:42 WBC 6.6 RBC 2.57 L Hgb 8.2 L Hct 23.4 L MCV 91.2 D MCH 31.9 MCHC 35.0 RDW 14.9 Plt Count 168 MPV 6.6 L Neut % (Auto) 84.1 H Lymph % (Auto) 9.3 [place] % (Auto) 6.0 Eos % (Auto) 0.3 Baso % (Auto) 0.3 Neut # (Auto) 5.6 Lymph # (Auto) 0.6 L [place] # (Auto) 0.4 Eos # (Auto) 0.0 Baso # (Auto) 0.0 WBC Differential . Differential Comment Auto diff final Sodium 141 Potassium 3.2 L Chloride 111 H Carbon Dioxide 20.6 L Anion Gap 9 BUN 12 Creatinine 0.74 Estimated GFR Greater than 89 POC Glucose 238 H Random Glucose 147 H Calcium 8.1 L Total Bilirubin 0.2 AST 12 L ALT 13 Alkaline Phosphatase 113 Total Protein 5.9 L Albumin 1.6 L 03/26/18 03/27/18 03/27/18 23:51 07:47 07:55 WBC 6.1 RBC 2.49 L Hgb 8.2 L Hct 23.2 L MCV 93.1 MCH 32.9 MCHC 35.3 RDW 15.1 Plt Count 178 MPV 6.8 L Neut % (Auto) Lymph % (Auto) [place] % (Auto) Eos % (Auto) Baso % (Auto) Neut # (Auto) Lymph # (Auto) [place] # (Auto) Eos # (Auto) Baso # (Auto) WBC Differential Differential Comment Sodium Potassium Chloride Carbon Dioxide Anion Gap BUN Creatinine Estimated GFR POC Glucose 137 H 104 Random Glucose Calcium Total Bilirubin AST ALT Alkaline Phosphatase Total Protein Albumin 03/27/18 03/27/18 07:55 12:05 WBC RBC Hgb Hct MCV MCH MCHC RDW Plt Count MPV Neut % (Auto) Lymph % (Auto) [place] % (Auto) Eos % (Auto) Baso % (Auto) Neut # (Auto) Lymph # (Auto) [place] # (Auto) Eos # (Auto) Baso # (Auto) WBC Differential Differential Comment Sodium 141 Potassium 3.2 L Chloride 109 H Carbon Dioxide 22.8 Anion Gap 9 BUN 11 Creatinine 0.71 Estimated GFR Greater than 89 POC Glucose 224 H Random Glucose 109 H Calcium 8.5 Total Bilirubin AST ALT Alkaline Phosphatase Total Protein Albumin - Procedures EGD PROCEDURE REPORT EXAM DATE: 03/17/2018 PATIENT NAME: Morgan Salmeron MR #: [id number] BIRTHDATE: 1955 ATTENDING: Bailey Trevizo MD ORDER #: [id number] INSERTER PROMOTIONAL ITEM: Kennedy Cabello and Keyanna Lubin STATUS: inpatient INDICATIONS: The patient is a 62 yr old female here for an EGD due to acute post hemorrhagic anemia and melena PROCEDURE PERFORMED: EGD w/ ablation MEDICATIONS: None and Per Anesthesia. TOPICAL ANESTHETIC: CONSENT: The patient understands the risks and benefits of the procedure and understands that these risks include, but are not limited to: sedation, allergic reaction, infection, perforation and/or bleeding. Alternative means of evaluation and treatment include, among others: physical exam, x-rays, and/or surgical intervention. The patient elects to proceed with this endoscopic procedure. medical equipment was checked for proper function. Hand hygiene and appropriate measures for infection prevention was taken. After the risks, benefits and alternatives of the procedure were thoroughly explained, Informed consent was verified, confirmed and timeout was successfully executed by the treatment team. The patient was anesthetized with topical anesthesia and the Pentax EG-2990i endoscope was introduced through the mouth and advanced to the first portion of the duodenum. Retroflexed views revealed large blood clot The gastroscope was then slowly withdrawn and removed. ESOPHAGUS: The mucosa of the esophagus appeared normal. STOMACH: Large blood clot covering 2/3rds of the stomach. No active bleeding. Suctioned as much as possible. DUODENUM: A large non-bleeding non-bleeding and shallow ulcer, ranging between 5-9mm in size, with surrounding edema, a pigmented spot and an adherent clot was found in the duodenal bulb. Argon plasma coagulation was applied to the site. With complete hemostasis achieved. ADVERSE EVENTS: There were no complications. IMPRESSIONS: 1. The esophagus appeared normal 2. Large blood clot covering 2/3rds of the stomach. No active bleeding. Suctioned as much as possible 3. Large non-bleeding ulcer, ranging between 5-9mm in size, was found in the duodenal bulb; Argon plasma coagulation was applied to the site; with complete hemostasis achieved 4. Retroflexed views revealed large blood clot RECOMMENDATIONS: 1. Continue PPI 2. Monitor in ICU, transfuse as needed. Clear liquid diet. IV reglan. REpeat egd tomorrow or monday depending upon clinical course. PATIENT CONDITION: stable DISPOSITION: Inpatient REPEAT EXAM: Return 1 day EGD Bailey Trevizo MD eSigned: Bailey Trevizo MD 03/17/2018 1:48 PM EGD PROCEDURE REPORT EXAM DATE: 03/19/2018 PATIENT NAME: Morgan Salmeron MR #: [id number] BIRTHDATE: 1955 ATTENDING: Bailey Trevizo MD ORDER #: [id number] INSERTER PROMOTIONAL ITEM: Alberto Padilla Pena, Gabriela, and Guillermina Potter STATUS: inpatient INDICATIONS: The patient is a 62 yr old female here for an EGD due to acute post hemorrhagic anemia PROCEDURE PERFORMED: EGD, diagnostic MEDICATIONS: None and Per Anesthesia. TOPICAL ANESTHETIC: CONSENT: The patient understands the risks and benefits of the procedure and understands that these risks include, but are not limited to: sedation, allergic reaction, infection, perforation and/or bleeding. Alternative means of evaluation and treatment include, among others: physical exam, x-rays, and/or surgical intervention. The patient elects to proceed with this endoscopic procedure. medical equipment was checked for proper function. Hand hygiene and appropriate measures for infection prevention was taken. After the risks, benefits and alternatives of the procedure were thoroughly explained, Informed consent was verified, confirmed and timeout was successfully executed by the treatment team. The patient was anesthetized with topical anesthesia and the Pentax EG-2990i endoscope was introduced through the mouth and advanced to the second portion of the duodenum. Retroflexed views revealed no abnormalities The gastroscope was then slowly withdrawn and removed. ESOPHAGUS: The mucosa of the esophagus appeared normal. STOMACH: Two large non-bleeding, deep and irregular shaped ulcers, measuring 20 x 30mm in size, with heaped up edges, an adherent clot and a pigmented spot were found in the gastric body, on the lesser curvature of the stomach, and in the gastric antrum. DUODENUM: Two non-bleeding, shallow and clean-based ulcers ranging between 3-5 mm in size were found in the 1st part of the duodenum. ADVERSE EVENTS: There were no complications. IMPRESSIONS: 1. The esophagus appeared normal 2. Two large ulcers, measuring 20 x 30mm in size, were found in the gastric body, on the lesser curvature of the stomach, and in the gastric antrum 3. Two ulcers ranging between 3-5 mm in size were found in the 1st part of the duodenum 4. Retroflexed views revealed no abnormalities RECOMMENDATIONS: 1. Anti-reflux regimen 2. Continue PPI 3. If rebleeds needs IR consultation with L gastric artery embolization PATIENT CONDITION: stable DISPOSITION: Inpatient REPEAT EXAM: Return 1 month EGD Bailey Trevizo MD eSigned: Bailey Trevizo MD 03/19/2018 12:13 PM Assessment and Plan - Assessment (1) Abdominal pain Code(s): R10.9 - Unspecified abdominal pain Status: Acute (2) Acute GI bleeding Code(s): K92.2 - Gastrointestinal hemorrhage, unspecified Status: Acute (3) Acute hypotension Code(s): I95.9 - Hypotension, unspecified Status: Resolved (4) Upper GI bleed Code(s): K92.2 - Gastrointestinal hemorrhage, unspecified Status: Acute (5) Cervical cancer Code(s): C53.9 - Malignant neoplasm of cervix uteri, unspecified Status: Chronic (6) Abdominal pain Code(s): R10.9 - Unspecified abdominal pain Status: Acute (7) Cervical cancer Code(s): C53.9 - Malignant neoplasm of cervix uteri, unspecified Status: Chronic (8) Diabetes Code(s): E11.9 - Type 2 diabetes mellitus without complications Status: Chronic (9) Chronic back pain Code(s): M54.9 - Dorsalgia, unspecified; G89.29 - Other chronic pain Status: Chronic (10) Diabetes mellitus Code(s): E11.9 - Type 2 diabetes mellitus without complications Status: Chronic (11) Hypertension Code(s): I10 - Essential (primary) hypertension Status: Chronic - Plan 1. Gastrointestinal bleeding.--Had first EGD on 03-17; repeat EGD on 03-19 showed large ulcer 2X3 CM 2. Severe anemia secondary to acute blood loss 3. Acute renal failure. Slow improvement 4. Hyperkalemia 5. Abdominal pain 6. Urinary tract infection. On Rocephin 7. Metastatic cervical cancer.-Pain control is able to tolerate 8. History of hydronephrosis, status post bilateral ureteral stent placement 9. History of hypertension.-Borderline blood pressure at this time 10. History of diabetes mellitus. 11. Hypomagnesia Plan: Patient stabilized Patient discharged on 03/22/2018. Discharge to residential facility when placement available PPI KCl ordered Encourage ambulation (1) Abdominal pain Qualifiers: Abdominal location: generalized Qualified Code(s): R10.84 - Generalized abdominal pain (5) Cervical cancer Qualifiers: Malignant neoplasm of cervix location: unspecified location Qualified Code(s) : C53.9 - Malignant neoplasm of cervix uteri, unspecified
[2018-03-28] MEDS: Insulin NovoLIN Regular Correctional Sugar Inj SQ SCH ×3 (06:47→17:28)
[2018-03-28] MEDS: Sodium Chloride 0.9% 2 ML Flush BID IV.FLUSH SCH ×2 (08:13→21:23)
--- NOTE | 2018-03-28 17:16 | P.PNIM ---
Subjective Interval history: Patient has no new complaints today, she came in initially with bleeding ulcer and urinary tract infection but both are resolved. She does have ongoing treatment for cervical cancer with chemotherapy. Overall she feels generally weak Physical Exam Vital signs: Vital Signs 03/27/18 20:00 03/28/18 00:00 03/28/18 04:00 Temperature 98.9 F 98.9 F 97.6 F Pulse Rate 74 72 87 Respiratory Rate 15 15 18 Blood Pressure 127/71 127/71 116/68 Pulse Oximetry 98 98 98 03/28/18 08:00 03/28/18 08:12 03/28/18 09:33 Temperature 98.8 F Pulse Rate 87 Respiratory Rate 17 16 16 Blood Pressure 122/70 Pulse Oximetry 98 03/28/18 13:07 03/28/18 14:18 Temperature Pulse Rate Respiratory Rate 16 16 Blood Pressure Pulse Oximetry Intake & Output 03/27/18 03/28/18 03/28/18 18:59 06:59 18:59 Intake Total 100 / 100 120 / 120 Output Total 1700 / 1700 500 / 500 Balance -1600 / -1600 -380 / -380 Intake: IV 100 / 100 Rocephin Inj 1,000 MG In NS Inj 100 / 100 100 ML @ 200 mls/hr IV.SIG Q24H SAMANTHA Rx#:[id number] Oral 120 / 120 Output: Urine 1700 / 1700 500 / 500 Other: # Voids 2 Date of Last Bowel Movement 03/27/18 # Bowel Movements 1 Narrative: GENERAL: AAOx3, no acute distress, weak appearing SKIN: Warm and dry. No rashes HEAD: Atruamtic, normocephalic. EYES: No scleral icterus. No injection or drainage. ENT: Moist mucous membranes, patent nares, no erythema of oropharynx. NECK: Supple, trachea midline. No JVD or lymphadenopathy. Normal thyroid. CARDIOVASCULAR: Regular rate and rhythm. No murmurs, gallops, or rubs. RESPIRATORY: Breath sounds clear equal bilaterally. No crackles or wheezes. No accessory muscle use. GASTROINTESTINAL: Abdomen soft, non-tender, nondistended, normal active bowel sounds MUSCULOSKELETAL: No cyanosis, or edema. NEURO: CN II-XII grossly intact, no focal deficits, no slurring of speech - Urinary Catheter Management Straight Cath placed during this visit: yes, but has since been removed by the nurse Reason for continuing: Not indwelling catheter Insertion date: 03/16/18 Insertion time: 13:02 Removal date: 03/16/18 Removal time: 12:04 PUREWIC Cath placed during this visit: no Results - Labs CBC & Chem 7: 03/27/18 07:55 03/27/18 07:55 Laboratory Results - last 24 hr 03/27/18 03/27/18 03/28/18 17:11 23:26 06:47 POC Glucose 140 H 126 H 131 H 03/28/18 11:02 POC Glucose 183 H - Procedures EGD PROCEDURE REPORT EXAM DATE: 03/17/2018 PATIENT NAME: Morgan Salmeron MR #: [id number] BIRTHDATE: 1955 ATTENDING: Bailey Trevizo MD ORDER #: [id number] DIETITIAN TEACHING: Kennedy Cabello and Keyanna Lubin STATUS: inpatient INDICATIONS: The patient is a 62 yr old female here for an EGD due to acute post hemorrhagic anemia and melena PROCEDURE PERFORMED: EGD w/ ablation MEDICATIONS: None and Per Anesthesia. TOPICAL ANESTHETIC: CONSENT: The patient understands the risks and benefits of the procedure and understands that these risks include, but are not limited to: sedation, allergic reaction, infection, perforation and/or bleeding. Alternative means of evaluation and treatment include, among others: physical exam, x-rays, and/or surgical intervention. The patient elects to proceed with this endoscopic procedure. medical equipment was checked for proper function. Hand hygiene and appropriate measures for infection prevention was taken. After the risks, benefits and alternatives of the procedure were thoroughly explained, Informed consent was verified, confirmed and timeout was successfully executed by the treatment team. The patient was anesthetized with topical anesthesia and the Pentax EG-2990i endoscope was introduced through the mouth and advanced to the first portion of the duodenum. Retroflexed views revealed large blood clot The gastroscope was then slowly withdrawn and removed. ESOPHAGUS: The mucosa of the esophagus appeared normal. STOMACH: Large blood clot covering 2/3rds of the stomach. No active bleeding. Suctioned as much as possible. DUODENUM: A large non-bleeding non-bleeding and shallow ulcer, ranging between 5-9mm in size, with surrounding edema, a pigmented spot and an adherent clot was found in the duodenal bulb. Argon plasma coagulation was applied to the site. With complete hemostasis achieved. ADVERSE EVENTS: There were no complications. IMPRESSIONS: 1. The esophagus appeared normal 2. Large blood clot covering 2/3rds of the stomach. No active bleeding. Suctioned as much as possible 3. Large non-bleeding ulcer, ranging between 5-9mm in size, was found in the duodenal bulb; Argon plasma coagulation was applied to the site; with complete hemostasis achieved 4. Retroflexed views revealed large blood clot RECOMMENDATIONS: 1. Continue PPI 2. Monitor in ICU, transfuse as needed. Clear liquid diet. IV reglan. REpeat egd tomorrow or monday depending upon clinical course. PATIENT CONDITION: stable DISPOSITION: Inpatient REPEAT EXAM: Return 1 day EGD Bailey Trevizo MD eSigned: Bailey Trevizo MD 03/17/2018 1:48 PM EGD PROCEDURE REPORT EXAM DATE: 03/19/2018 PATIENT NAME: Morgan Salmeron MR #: [id number] BIRTHDATE: 1955 ATTENDING: Baliey Trevizo MD ORDER #: [id number] DIETITIAN TEACHING: Alberto Padilla Pena, Gabriela, and Guillermina Potter STATUS: inpatient INDICATIONS: The patient is a 62 yr old female here for an EGD due to acute post hemorrhagic anemia PROCEDURE PERFORMED: EGD, diagnostic MEDICATIONS: None and Per Anesthesia. TOPICAL ANESTHETIC: CONSENT: The patient understands the risks and benefits of the procedure and understands that these risks include, but are not limited to: sedation, allergic reaction, infection, perforation and/or bleeding. Alternative means of evaluation and treatment include, among others: physical exam, x-rays, and/or surgical intervention. The patient elects to proceed with this endoscopic procedure. medical equipment was checked for proper function. Hand hygiene and appropriate measures for infection prevention was taken. After the risks, benefits and alternatives of the procedure were thoroughly explained, Informed consent was verified, confirmed and timeout was successfully executed by the treatment team. The patient was anesthetized with topical anesthesia and the Pentax EG-2990i endoscope was introduced through the mouth and advanced to the second portion of the duodenum. Retroflexed views revealed no abnormalities The gastroscope was then slowly withdrawn and removed. ESOPHAGUS: The mucosa of the esophagus appeared normal. STOMACH: Two large non-bleeding, deep and irregular shaped ulcers, measuring 20 x 30mm in size, with heaped up edges, an adherent clot and a pigmented spot were found in the gastric body, on the lesser curvature of the stomach, and in the gastric antrum. DUODENUM: Two non-bleeding, shallow and clean-based ulcers ranging between 3-5 mm in size were found in the 1st part of the duodenum. ADVERSE EVENTS: There were no complications. IMPRESSIONS: 1. The esophagus appeared normal 2. Two large ulcers, measuring 20 x 30mm in size, were found in the gastric body, on the lesser curvature of the stomach, and in the gastric antrum 3. Two ulcers ranging between 3-5 mm in size were found in the 1st part of the duodenum 4. Retroflexed views revealed no abnormalities RECOMMENDATIONS: 1. Anti-reflux regimen 2. Continue PPI 3. If rebleeds needs IR consultation with L gastric artery embolization PATIENT CONDITION: stable DISPOSITION: Inpatient REPEAT EXAM: Return 1 month EGD Bailey Trevizo MD eSigned: Bailey Trevizo MD 03/19/2018 12:13 PM Assessment and Plan - Assessment (1) Abdominal pain Code(s): R10.9 - Unspecified abdominal pain Status: Acute (2) Acute GI bleeding Code(s): K92.2 - Gastrointestinal hemorrhage, unspecified Status: Acute (3) Acute hypotension Code(s): I95.9 - Hypotension, unspecified Status: Resolved (4) Upper GI bleed Code(s): K92.2 - Gastrointestinal hemorrhage, unspecified Status: Acute (5) Cervical cancer Code(s): C53.9 - Malignant neoplasm of cervix uteri, unspecified Status: Chronic (6) Abdominal pain Code(s): R10.9 - Unspecified abdominal pain Status: Acute (7) Cervical cancer Code(s): C53.9 - Malignant neoplasm of cervix uteri, unspecified Status: Chronic (8) Diabetes Code(s): E11.9 - Type 2 diabetes mellitus without complications Status: Chronic (9) Chronic back pain Code(s): M54.9 - Dorsalgia, unspecified; G89.29 - Other chronic pain Status: Chronic (10) Diabetes mellitus Code(s): E11.9 - Type 2 diabetes mellitus without complications Status: Chronic (11) Hypertension Code(s): I10 - Essential (primary) hypertension Status: Chronic - Plan Upper GI bleed Repeat EGD on 03/19 showed large 2 x 3 cm ulcer Continue Protonix Recommend outpatient follow-up with GI following discharge Appreciate gastroenterology Anemia Patient was treated for severe anemia secondary to blood loss and now has a stable hemoglobin Metastatic cervical cancer Ongoing outpatient chemotherapy Pain control is adequate Follow-up as outpatient for ongoing treatment Type 2 diabetes Accu-Cheks with sliding scale insulin coverage Diabetic diet DVT Prophylaxis SCDs, patient was admitted for GI bleed so chemoprophylaxis is held Discharge planning If patient is minimally ambulatory she may benefit from short-term rehab placement (1) Abdominal pain Qualifiers: Abdominal location: generalized Qualified Code(s): R10.84 - Generalized abdominal pain (5) Cervical cancer Qualifiers: Malignant neoplasm of cervix location: unspecified location Qualified Code(s) : C53.9 - Malignant neoplasm of cervix uteri, unspecified
[2018-03-29] MEDS: Insulin NovoLIN Regular Correctional Sugar Inj SQ SCH ×4 (01:09→17:06)
[2018-03-29] MEDS: Sodium Chloride 0.9% 2 ML Flush BID IV.FLUSH SCH ×2 (08:14→22:16)
--- NOTE | 2018-03-29 18:26 | P.PNIM ---
Subjective Interval history: Both patient and her cousin agree that short stay at a rehab center would be in her best interest. They requested that I look at a rash which appears to be shingles on her left flank. Physical Exam Vital signs: Vital Signs 03/28/18 20:00 03/29/18 00:00 03/29/18 04:00 Temperature 98.4 F 98 F 98.3 F Pulse Rate 79 90 91 H Respiratory Rate 16 16 18 Blood Pressure 97/59 L 109/63 120/69 Pulse Oximetry 97 97 99 03/29/18 08:00 03/29/18 08:15 03/29/18 09:20 Temperature 97.9 F Pulse Rate 90 Respiratory Rate 20 16 16 Blood Pressure 127/74 Pulse Oximetry 98 03/29/18 11:58 03/29/18 15:59 03/29/18 16:00 Temperature 98.7 F 98.5 F Pulse Rate 85 85 88 Respiratory Rate 20 20 Blood Pressure 98/58 L 121/70 Pulse Oximetry 99 99 03/29/18 17:04 03/29/18 17:51 Temperature Pulse Rate Respiratory Rate 16 16 Blood Pressure Pulse Oximetry Intake & Output 03/28/18 03/29/18 03/29/18 18:59 06:59 18:59 Intake Total 1040 / 1040 580 / 580 Output Total 1600 / 1600 275 / 275 Balance -560 / -560 -275 / -275 580 / 580 Intake: IV 100 / 100 100 / 100 Rocephin Inj 1,000 MG In NS Inj 100 / 100 100 / 100 100 ML @ 200 mls/hr IV.SIG Q24H [facility] Rx#:[id number] Oral 940 / 940 480 / 480 Output: Urine 1600 / 1600 275 / 275 Other: # Incontinent Voids 4 # Bowel Movements 1 Narrative: GENERAL: AAOx3, no acute distress, weak appearing SKIN: Warm and dry. Large distribution dermatomal rash over her left flank, vesicular with dry crusted scabs and calamine lotion HEAD: Atruamtic, normocephalic. EYES: No scleral icterus. No injection or drainage. ENT: Moist mucous membranes, patent nares, no erythema of oropharynx. NECK: Supple, trachea midline. No JVD or lymphadenopathy. Normal thyroid. CARDIOVASCULAR: Regular rate and rhythm. No murmurs, gallops, or rubs. RESPIRATORY: Breath sounds clear equal bilaterally. No crackles or wheezes. No accessory muscle use. GASTROINTESTINAL: Abdomen soft, non-tender, nondistended, normal active bowel sounds MUSCULOSKELETAL: No cyanosis, or edema. NEURO: CN II-XII grossly intact, no focal deficits, no slurring of speech - Urinary Catheter Management Straight Cath placed during this visit: yes, but has since been removed by the nurse Reason for continuing: Not indwelling catheter Insertion date: 03/16/18 Insertion time: 13:02 Removal date: 03/16/18 Removal time: 12:04 PUREWIC Cath placed during this visit: no Results - Labs CBC & Chem 7: 03/27/18 07:55 03/27/18 07:55 Laboratory Results - last 24 hr 03/29/18 03/29/18 03/29/18 00:23 05:24 11:42 POC Glucose 114 H 99 143 H 03/29/18 17:06 POC Glucose 149 H - Procedures EGD PROCEDURE REPORT EXAM DATE: 03/17/2018 PATIENT NAME: Morgan Salmeron MR #: [id number] BIRTHDATE: 1955 ATTENDING: Bailey Trevizo MD ORDER #: [id number] PERL SOFTWARE ENGINEER: Kennedy Cabello and Keyanna Lubin STATUS: inpatient INDICATIONS: The patient is a 62 yr old female here for an EGD due to acute post hemorrhagic anemia and melena PROCEDURE PERFORMED: EGD w/ ablation MEDICATIONS: None and Per Anesthesia. TOPICAL ANESTHETIC: CONSENT: The patient understands the risks and benefits of the procedure and understands that these risks include, but are not limited to: sedation, allergic reaction, infection, perforation and/or bleeding. Alternative means of evaluation and treatment include, among others: physical exam, x-rays, and/or surgical intervention. The patient elects to proceed with this endoscopic procedure. medical equipment was checked for proper function. Hand hygiene and appropriate measures for infection prevention was taken. After the risks, benefits and alternatives of the procedure were thoroughly explained, Informed consent was verified, confirmed and timeout was successfully executed by the treatment team. The patient was anesthetized with topical anesthesia and the Pentax EG-2990i endoscope was introduced through the mouth and advanced to the first portion of the duodenum. Retroflexed views revealed large blood clot The gastroscope was then slowly withdrawn and removed. ESOPHAGUS: The mucosa of the esophagus appeared normal. STOMACH: Large blood clot covering 2/3rds of the stomach. No active bleeding. Suctioned as much as possible. DUODENUM: A large non-bleeding non-bleeding and shallow ulcer, ranging between 5-9mm in size, with surrounding edema, a pigmented spot and an adherent clot was found in the duodenal bulb. Argon plasma coagulation was applied to the site. With complete hemostasis achieved. ADVERSE EVENTS: There were no complications. IMPRESSIONS: 1. The esophagus appeared normal 2. Large blood clot covering 2/3rds of the stomach. No active bleeding. Suctioned as much as possible 3. Large non-bleeding ulcer, ranging between 5-9mm in size, was found in the duodenal bulb; Argon plasma coagulation was applied to the site; with complete hemostasis achieved 4. Retroflexed views revealed large blood clot RECOMMENDATIONS: 1. Continue PPI 2. Monitor in ICU, transfuse as needed. Clear liquid diet. IV reglan. REpeat egd tomorrow or monday depending upon clinical course. PATIENT CONDITION: stable DISPOSITION: Inpatient REPEAT EXAM: Return 1 day EGD Bailey Trevizo MD eSigned: Bailey Trevizo MD 03/17/2018 1:48 PM EGD PROCEDURE REPORT EXAM DATE: 03/19/2018 PATIENT NAME: Morgan Salmeron MR #: [id number] BIRTHDATE: 1955 ATTENDING: Bailey Trevizo MD ORDER #: [id number] PERL SOFTWARE ENGINEER: Alberto Padilla Pena, Gabriela, and Guillermina Potter STATUS: inpatient INDICATIONS: The patient is a 62 yr old female here for an EGD due to acute post hemorrhagic anemia PROCEDURE PERFORMED: EGD, diagnostic MEDICATIONS: None and Per Anesthesia. TOPICAL ANESTHETIC: CONSENT: The patient understands the risks and benefits of the procedure and understands that these risks include, but are not limited to: sedation, allergic reaction, infection, perforation and/or bleeding. Alternative means of evaluation and treatment include, among others: physical exam, x-rays, and/or surgical intervention. The patient elects to proceed with this endoscopic procedure. medical equipment was checked for proper function. Hand hygiene and appropriate measures for infection prevention was taken. After the risks, benefits and alternatives of the procedure were thoroughly explained, Informed consent was verified, confirmed and timeout was successfully executed by the treatment team. The patient was anesthetized with topical anesthesia and the Pentax EG-2990i endoscope was introduced through the mouth and advanced to the second portion of the duodenum. Retroflexed views revealed no abnormalities The gastroscope was then slowly withdrawn and removed. ESOPHAGUS: The mucosa of the esophagus appeared normal. STOMACH: Two large non-bleeding, deep and irregular shaped ulcers, measuring 20 x 30mm in size, with heaped up edges, an adherent clot and a pigmented spot were found in the gastric body, on the lesser curvature of the stomach, and in the gastric antrum. DUODENUM: Two non-bleeding, shallow and clean-based ulcers ranging between 3-5 mm in size were found in the 1st part of the duodenum. ADVERSE EVENTS: There were no complications. IMPRESSIONS: 1. The esophagus appeared normal 2. Two large ulcers, measuring 20 x 30mm in size, were found in the gastric body, on the lesser curvature of the stomach, and in the gastric antrum 3. Two ulcers ranging between 3-5 mm in size were found in the 1st part of the duodenum 4. Retroflexed views revealed no abnormalities RECOMMENDATIONS: 1. Anti-reflux regimen 2. Continue PPI 3. If rebleeds needs IR consultation with L gastric artery embolization PATIENT CONDITION: stable DISPOSITION: Inpatient REPEAT EXAM: Return 1 month EGD aBiley Trevizo MD eSigned: Bailey Trevizo MD 03/19/2018 12:13 PM Assessment and Plan - Assessment (1) Abdominal pain Code(s): R10.9 - Unspecified abdominal pain Status: Acute (2) Acute GI bleeding Code(s): K92.2 - Gastrointestinal hemorrhage, unspecified Status: Acute (3) Acute hypotension Code(s): I95.9 - Hypotension, unspecified Status: Resolved (4) Upper GI bleed Code(s): K92.2 - Gastrointestinal hemorrhage, unspecified Status: Acute (5) Cervical cancer Code(s): C53.9 - Malignant neoplasm of cervix uteri, unspecified Status: Chronic (6) Abdominal pain Code(s): R10.9 - Unspecified abdominal pain Status: Acute (7) Cervical cancer Code(s): C53.9 - Malignant neoplasm of cervix uteri, unspecified Status: Chronic (8) Diabetes Code(s): E11.9 - Type 2 diabetes mellitus without complications Status: Chronic (9) Chronic back pain Code(s): M54.9 - Dorsalgia, unspecified; G89.29 - Other chronic pain Status: Chronic (10) Diabetes mellitus Code(s): E11.9 - Type 2 diabetes mellitus without complications Status: Chronic (11) Hypertension Code(s): I10 - Essential (primary) hypertension Status: Chronic - Plan Upper GI bleed Repeat EGD on 03/19 showed large 2 x 3 cm ulcer Continue Protonix Recommend outpatient follow-up with GI following discharge Appreciate gastroenterology [facility] 7-day course of p.o. Valtrex Topical acyclovir Discontinue calamine lotion Anemia Patient was treated for severe anemia secondary to blood loss Hemoglobin remains stable Metastatic cervical cancer Ongoing outpatient chemotherapy Pain control is adequate Patient asked about cancer and definition of terms, inquired about cause, we discussed HPV Follow-up as outpatient for ongoing treatment Type 2 diabetes Accu-Cheks with sliding scale insulin coverage Diabetic diet DVT Prophylaxis SCDs, patient was admitted for GI bleed so chemoprophylaxis is held Discharge planning Planning for rehab placement, patient has a list (1) Abdominal pain Qualifiers: Abdominal location: generalized Qualified Code(s): R10.84 - Generalized abdominal pain (5) Cervical cancer Qualifiers: Malignant neoplasm of cervix location: unspecified location Qualified Code(s) : C53.9 - Malignant neoplasm of cervix uteri, unspecified
[2018-03-29] MEDS: valACYclovir 500 MG Tab PO SCH (21:47)
[2018-03-30] MEDS: Insulin NovoLIN Regular Correctional Sugar Inj SQ SCH ×4 (01:13→17:33)
[2018-03-30] MEDS: valACYclovir 500 MG Tab PO SCH ×3 (05:52→22:08)
[2018-03-30] MEDS: Sodium Chloride 0.9% 2 ML Flush BID IV.FLUSH SCH ×2 (10:06→22:09)
--- NOTE | 2018-03-30 16:47 | P.PNIM ---
Subjective Interval history: Patient is resting in chair today, no apparent distress. She is appropriate for discharge but has no payer source due to poor insurance. Physical Exam Vital signs: Vital Signs 03/29/18 17:04 03/29/18 17:51 03/29/18 20:00 Temperature 98.5 F Pulse Rate 85 Respiratory Rate 16 16 18 Blood Pressure 118/68 Pulse Oximetry 100 03/30/18 00:00 03/30/18 04:00 03/30/18 08:00 Temperature 98 F 98.7 F 98.3 F Pulse Rate 100 H 89 91 H Respiratory Rate 16 18 20 Blood Pressure 126/74 99/58 L 108/68 Pulse Oximetry 100 99 99 03/30/18 11:20 03/30/18 12:00 03/30/18 12:41 Temperature 98.2 F Pulse Rate 88 96 H 98 H Respiratory Rate 20 Blood Pressure 112/64 Pulse Oximetry 98 03/30/18 16:00 Temperature 99.3 F Pulse Rate 97 H Respiratory Rate 18 Blood Pressure 119/72 Pulse Oximetry 98 Intake & Output 03/29/18 03/30/18 03/30/18 18:59 06:59 18:59 Intake Total 580 / 580 Balance 580 / 580 Intake: IV 100 / 100 Rocephin Inj 1,000 MG In NS Inj 100 / 100 100 ML @ 200 mls/hr IV.SIG Q24H [facility] Rx#:[id number] Oral 480 / 480 Other: # Incontinent Voids 4 Date of Last Bowel Movement 03/29/18 Narrative: GENERAL: AAOx3, no acute distress, weak appearing SKIN: Warm and dry. Large distribution dermatomal rash over her left flank, vesicular with dry crusted scabs with patchy skin loss in between HEAD: Atruamtic, normocephalic. EYES: No scleral icterus. No injection or drainage. ENT: Moist mucous membranes, patent nares, no erythema of oropharynx. NECK: Supple, trachea midline. No JVD or lymphadenopathy. Normal thyroid. CARDIOVASCULAR: Regular rate and rhythm. No murmurs, gallops, or rubs. RESPIRATORY: Breath sounds clear equal bilaterally. No crackles or wheezes. No accessory muscle use. GASTROINTESTINAL: Abdomen soft, non-tender, nondistended, normal active bowel sounds MUSCULOSKELETAL: No cyanosis, or edema. NEURO: CN II-XII grossly intact, no focal deficits, no slurring of speech - Urinary Catheter Management Straight Cath placed during this visit: yes, but has since been removed by the nurse Reason for continuing: Not indwelling catheter Insertion date: 03/16/18 Insertion time: 13:02 Removal date: 03/16/18 Removal time: 12:04 PUREWIC Cath placed during this visit: no Results - Labs CBC & Chem 7: 03/27/18 07:55 03/27/18 07:55 Laboratory Results - last 24 hr 03/29/18 03/30/18 03/30/18 17:06 00:21 05:56 POC Glucose 149 H 143 H 119 H 03/30/18 03/30/18 12:08 16:28 POC Glucose 150 H 125 H - Procedures EGD PROCEDURE REPORT EXAM DATE: 03/17/2018 PATIENT NAME: Morgan Salmeron MR #: [id number] BIRTHDATE: 1955 ATTENDING: Bailey Trevizo MD ORDER #: [id number] PRODUCTION MANUFACTURING WORKER: Kennedy Cabello and Keyanna Lubin STATUS: inpatient INDICATIONS: The patient is a 62 yr old female here for an EGD due to acute post hemorrhagic anemia and melena PROCEDURE PERFORMED: EGD w/ ablation MEDICATIONS: None and Per Anesthesia. TOPICAL ANESTHETIC: CONSENT: The patient understands the risks and benefits of the procedure and understands that these risks include, but are not limited to: sedation, allergic reaction, infection, perforation and/or bleeding. Alternative means of evaluation and treatment include, among others: physical exam, x-rays, and/or surgical intervention. The patient elects to proceed with this endoscopic procedure. medical equipment was checked for proper function. Hand hygiene and appropriate measures for infection prevention was taken. After the risks, benefits and alternatives of the procedure were thoroughly explained, Informed consent was verified, confirmed and timeout was successfully executed by the treatment team. The patient was anesthetized with topical anesthesia and the Pentax EG-2990i endoscope was introduced through the mouth and advanced to the first portion of the duodenum. Retroflexed views revealed large blood clot The gastroscope was then slowly withdrawn and removed. ESOPHAGUS: The mucosa of the esophagus appeared normal. STOMACH: Large blood clot covering 2/3rds of the stomach. No active bleeding. Suctioned as much as possible. DUODENUM: A large non-bleeding non-bleeding and shallow ulcer, ranging between 5-9mm in size, with surrounding edema, a pigmented spot and an adherent clot was found in the duodenal bulb. Argon plasma coagulation was applied to the site. With complete hemostasis achieved. ADVERSE EVENTS: There were no complications. IMPRESSIONS: 1. The esophagus appeared normal 2. Large blood clot covering 2/3rds of the stomach. No active bleeding. Suctioned as much as possible 3. Large non-bleeding ulcer, ranging between 5-9mm in size, was found in the duodenal bulb; Argon plasma coagulation was applied to the site; with complete hemostasis achieved 4. Retroflexed views revealed large blood clot RECOMMENDATIONS: 1. Continue PPI 2. Monitor in ICU, transfuse as needed. Clear liquid diet. IV reglan. REpeat egd tomorrow or monday depending upon clinical course. PATIENT CONDITION: stable DISPOSITION: Inpatient REPEAT EXAM: Return 1 day EGD Bailey Trevizo MD eSigned: Bailey Trevizo MD 03/17/2018 1:48 PM EGD PROCEDURE REPORT EXAM DATE: 03/19/2018 PATIENT NAME: Morgan Salmeron MR #: [id number] BIRTHDATE: 1955 ATTENDING: Bailey Trevizo MD ORDER #: [id number] PRODUCTION MANUFACTURING WORKER: Alberto Padilla Pena, Gabriela, and Guillermina Potter STATUS: inpatient INDICATIONS: The patient is a 62 yr old female here for an EGD due to acute post hemorrhagic anemia PROCEDURE PERFORMED: EGD, diagnostic MEDICATIONS: None and Per Anesthesia. TOPICAL ANESTHETIC: CONSENT: The patient understands the risks and benefits of the procedure and understands that these risks include, but are not limited to: sedation, allergic reaction, infection, perforation and/or bleeding. Alternative means of evaluation and treatment include, among others: physical exam, x-rays, and/or surgical intervention. The patient elects to proceed with this endoscopic procedure. medical equipment was checked for proper function. Hand hygiene and appropriate measures for infection prevention was taken. After the risks, benefits and alternatives of the procedure were thoroughly explained, Informed consent was verified, confirmed and timeout was successfully executed by the treatment team. The patient was anesthetized with topical anesthesia and the Pentax EG-2990i endoscope was introduced through the mouth and advanced to the second portion of the duodenum. Retroflexed views revealed no abnormalities The gastroscope was then slowly withdrawn and removed. ESOPHAGUS: The mucosa of the esophagus appeared normal. STOMACH: Two large non-bleeding, deep and irregular shaped ulcers, measuring 20 x 30mm in size, with heaped up edges, an adherent clot and a pigmented spot were found in the gastric body, on the lesser curvature of the stomach, and in the gastric antrum. DUODENUM: Two non-bleeding, shallow and clean-based ulcers ranging between 3-5 mm in size were found in the 1st part of the duodenum. ADVERSE EVENTS: There were no complications. IMPRESSIONS: 1. The esophagus appeared normal 2. Two large ulcers, measuring 20 x 30mm in size, were found in the gastric body, on the lesser curvature of the stomach, and in the gastric antrum 3. Two ulcers ranging between 3-5 mm in size were found in the 1st part of the duodenum 4. Retroflexed views revealed no abnormalities RECOMMENDATIONS: 1. Anti-reflux regimen 2. Continue PPI 3. If rebleeds needs IR consultation with L gastric artery embolization PATIENT CONDITION: stable DISPOSITION: Inpatient REPEAT EXAM: Return 1 month EGD Bailey Trevizo MD eSigned: Bailey Trevizo MD 03/19/2018 12:13 PM Assessment and Plan - Assessment (1) Abdominal pain Code(s): R10.9 - Unspecified abdominal pain Status: Acute (2) Acute GI bleeding Code(s): K92.2 - Gastrointestinal hemorrhage, unspecified Status: Acute (3) Acute hypotension Code(s): I95.9 - Hypotension, unspecified Status: Resolved (4) Upper GI bleed Code(s): K92.2 - Gastrointestinal hemorrhage, unspecified Status: Acute (5) Cervical cancer Code(s): C53.9 - Malignant neoplasm of cervix uteri, unspecified Status: Chronic (6) Abdominal pain Code(s): R10.9 - Unspecified abdominal pain Status: Acute (7) Cervical cancer Code(s): C53.9 - Malignant neoplasm of cervix uteri, unspecified Status: Chronic (8) Diabetes Code(s): E11.9 - Type 2 diabetes mellitus without complications Status: Chronic (9) Chronic back pain Code(s): M54.9 - Dorsalgia, unspecified; G89.29 - Other chronic pain Status: Chronic (10) Diabetes mellitus Code(s): E11.9 - Type 2 diabetes mellitus without complications Status: Chronic (11) Hypertension Code(s): I10 - Essential (primary) hypertension Status: Chronic - Plan Upper GI bleed Repeat EGD on 03/19 showed large 2 x 3 cm ulcer Continue Protonix Recommend outpatient follow-up with GI following discharge Appreciate gastroenterology [facility] 7-day course of p.o. Valtrex started 03/29/2018 Topical acyclovir, continue switching to move per recent peripheral tissue persists Anemia Patient was treated for severe anemia secondary to blood loss Hemoglobin remains stable Metastatic cervical cancer Ongoing outpatient chemotherapy Pain control is adequate Type 2 diabetes Accu-Cheks with sliding scale insulin coverage Diabetic diet DVT Prophylaxis SCDs, patient was admitted for GI bleed so chemoprophylaxis is held Discharge planning Difficult placement due to under-insurance (1) Abdominal pain Qualifiers: Abdominal location: generalized Qualified Code(s): R10.84 - Generalized abdominal pain (5) Cervical cancer Qualifiers: Malignant neoplasm of cervix location: unspecified location Qualified Code(s) : C53.9 - Malignant neoplasm of cervix uteri, unspecified
[2018-03-31] MEDS: Insulin NovoLIN Regular Correctional Sugar Inj SQ SCH ×4 (00:36→17:55)
[2018-03-31] MEDS: valACYclovir 500 MG Tab PO SCH ×3 (05:50→21:10)
[2018-03-31] MEDS: Sodium Chloride 0.9% 2 ML Flush BID IV.FLUSH SCH ×2 (09:00→21:20)
--- NOTE | 2018-03-31 13:46 | P.PN ---
Subjective Interval history: Patient doing well. Tolerating p.o., reports voiding/stooling well with Paz in place. Physical Exam Vital signs: Vital Signs 03/30/18 16:00 03/30/18 16:48 03/30/18 20:00 Temperature 99.3 F 98.7 F Pulse Rate 97 H 94 H 101 H Respiratory Rate 18 18 Blood Pressure 119/72 130/73 Pulse Oximetry 98 98 03/31/18 00:00 03/31/18 00:01 03/31/18 03:56 Temperature 99.2 F Pulse Rate 105 H 109 H 98 H Respiratory Rate 18 Blood Pressure 133/82 Pulse Oximetry 97 03/31/18 04:00 03/31/18 08:00 03/31/18 12:00 Temperature 98.0 F 99 F 98.1 F Pulse Rate 96 H 97 H 96 H Respiratory Rate 18 20 20 Blood Pressure 100/59 L 88/65 L 118/76 Pulse Oximetry 98 97 100 03/31/18 13:14 Temperature Pulse Rate Respiratory Rate 7 L Blood Pressure Pulse Oximetry Intake & Output 03/30/18 03/31/18 03/31/18 18:59 06:59 18:59 Intake Total 700 / 700 Output Total 800 / 800 Balance -100 / -100 Intake: IV 100 / 100 Rocephin Inj 1,000 MG In NS Inj 100 / 100 100 ML @ 200 mls/hr IV.SIG Q24H SAMANTHA Rx#:[id number] Oral 600 / 600 Output: Urine 800 / 800 Other: # Voids 2 # Incontinent Voids 3 Date of Last Bowel Movement 03/29/18 03/30/18 # Incontinent Bowel Movements 2 Narrative: GENERAL: Well-nourished -[place] Citizen female, sitting comfortably in bed, in no acute distress SKIN: Warm and dry. HEAD: Normocephalic. EYES: No scleral icterus. No injection or drainage. NECK: Supple, trachea midline. No JVD or lymphadenopathy. CARDIOVASCULAR: Regular rate and rhythm without murmurs, gallops, or rubs. RESPIRATORY: Breath sounds equal bilaterally. No accessory muscle use. GASTROINTESTINAL: Abdomen soft, non-tender, nondistended. MUSCULOSKELETAL: No cyanosis, or edema. : paz BACK: Nontender without obvious deformity. No CVA tenderness. NEURO: AAO x3, no focal deficits, speech is clear. - Urinary Catheter Management Straight Cath placed during this visit: yes, but has since been removed by the nurse Reason for continuing: Not indwelling catheter Insertion date: 03/16/18 Insertion time: 13:02 Removal date: 03/16/18 Removal time: 12:04 PUREWIC Cath placed during this visit: no Results - Labs CBC & Chem 7: 03/27/18 07:55 03/27/18 07:55 Laboratory Results - last 24 hr 03/30/18 03/30/18 03/31/18 16:28 21:24 00:34 POC Glucose 125 H 180 H 142 H 03/31/18 03/31/18 05:49 11:57 POC Glucose 118 H 228 H - Procedures EGD PROCEDURE REPORT EXAM DATE: 03/17/2018 PATIENT NAME: Morgan Salmeron MR #: [id number] BIRTHDATE: 1955 ATTENDING: Bailey Trevizo MD ORDER #: [id number] MOLD DUMPER: Kennedy Cabello and Keyanna Lubin STATUS: inpatient INDICATIONS: The patient is a 62 yr old female here for an EGD due to acute post hemorrhagic anemia and melena PROCEDURE PERFORMED: EGD w/ ablation MEDICATIONS: None and Per Anesthesia. TOPICAL ANESTHETIC: CONSENT: The patient understands the risks and benefits of the procedure and understands that these risks include, but are not limited to: sedation, allergic reaction, infection, perforation and/or bleeding. Alternative means of evaluation and treatment include, among others: physical exam, x-rays, and/or surgical intervention. The patient elects to proceed with this endoscopic procedure. medical equipment was checked for proper function. Hand hygiene and appropriate measures for infection prevention was taken. After the risks, benefits and alternatives of the procedure were thoroughly explained, Informed consent was verified, confirmed and timeout was successfully executed by the treatment team. The patient was anesthetized with topical anesthesia and the Pentax EG-2990i endoscope was introduced through the mouth and advanced to the first portion of the duodenum. Retroflexed views revealed large blood clot The gastroscope was then slowly withdrawn and removed. ESOPHAGUS: The mucosa of the esophagus appeared normal. STOMACH: Large blood clot covering 2/3rds of the stomach. No active bleeding. Suctioned as much as possible. DUODENUM: A large non-bleeding non-bleeding and shallow ulcer, ranging between 5-9mm in size, with surrounding edema, a pigmented spot and an adherent clot was found in the duodenal bulb. Argon plasma coagulation was applied to the site. With complete hemostasis achieved. ADVERSE EVENTS: There were no complications. IMPRESSIONS: 1. The esophagus appeared normal 2. Large blood clot covering 2/3rds of the stomach. No active bleeding. Suctioned as much as possible 3. Large non-bleeding ulcer, ranging between 5-9mm in size, was found in the duodenal bulb; Argon plasma coagulation was applied to the site; with complete hemostasis achieved 4. Retroflexed views revealed large blood clot RECOMMENDATIONS: 1. Continue PPI 2. Monitor in ICU, transfuse as needed. Clear liquid diet. IV reglan. REpeat egd tomorrow or monday depending upon clinical course. PATIENT CONDITION: stable DISPOSITION: Inpatient REPEAT EXAM: Return 1 day EGD Bailey Trevizo MD eSigned: Bailey Trevizo MD 03/17/2018 1:48 PM EGD PROCEDURE REPORT EXAM DATE: 03/19/2018 PATIENT NAME: Morgan Salmeron MR #: [id number] BIRTHDATE: 1955 ATTENDING: Bailey Trevizo MD ORDER #: [id number] MOLD DUMPER: Alberto Padilla Pena, Gabriela, and Guillermina Potter STATUS: inpatient INDICATIONS: The patient is a 62 yr old female here for an EGD due to acute post hemorrhagic anemia PROCEDURE PERFORMED: EGD, diagnostic MEDICATIONS: None and Per Anesthesia. TOPICAL ANESTHETIC: CONSENT: The patient understands the risks and benefits of the procedure and understands that these risks include, but are not limited to: sedation, allergic reaction, infection, perforation and/or bleeding. Alternative means of evaluation and treatment include, among others: physical exam, x-rays, and/or surgical intervention. The patient elects to proceed with this endoscopic procedure. medical equipment was checked for proper function. Hand hygiene and appropriate measures for infection prevention was taken. After the risks, benefits and alternatives of the procedure were thoroughly explained, Informed consent was verified, confirmed and timeout was successfully executed by the treatment team. The patient was anesthetized with topical anesthesia and the Pentax EG-2990i endoscope was introduced through the mouth and advanced to the second portion of the duodenum. Retroflexed views revealed no abnormalities The gastroscope was then slowly withdrawn and removed. ESOPHAGUS: The mucosa of the esophagus appeared normal. STOMACH: Two large non-bleeding, deep and irregular shaped ulcers, measuring 20 x 30mm in size, with heaped up edges, an adherent clot and a pigmented spot were found in the gastric body, on the lesser curvature of the stomach, and in the gastric antrum. DUODENUM: Two non-bleeding, shallow and clean-based ulcers ranging between 3-5 mm in size were found in the 1st part of the duodenum. ADVERSE EVENTS: There were no complications. IMPRESSIONS: 1. The esophagus appeared normal 2. Two large ulcers, measuring 20 x 30mm in size, were found in the gastric body, on the lesser curvature of the stomach, and in the gastric antrum 3. Two ulcers ranging between 3-5 mm in size were found in the 1st part of the duodenum 4. Retroflexed views revealed no abnormalities RECOMMENDATIONS: 1. Anti-reflux regimen 2. Continue PPI 3. If rebleeds needs IR consultation with L gastric artery embolization PATIENT CONDITION: stable DISPOSITION: Inpatient REPEAT EXAM: Return 1 month EGD Bailey Trevizo MD eSigned: Bailey Trevizo MD 03/19/2018 12:13 PM Assessment and Plan - Assessment (1) Abdominal pain Code(s): R10.9 - Unspecified abdominal pain Status: Resolved (2) Acute GI bleeding Code(s): K92.2 - Gastrointestinal hemorrhage, unspecified Status: Acute (3) Acute hypotension Code(s): I95.9 - Hypotension, unspecified Status: Acute (4) Upper GI bleed Code(s): K92.2 - Gastrointestinal hemorrhage, unspecified Status: Acute (5) Cervical cancer Code(s): C53.9 - Malignant neoplasm of cervix uteri, unspecified Status: Chronic (6) Diabetes Code(s): E11.9 - Type 2 diabetes mellitus without complications Status: Chronic (7) Chronic back pain Code(s): M54.9 - Dorsalgia, unspecified; G89.29 - Other chronic pain Status: Chronic (8) Hypertension Code(s): I10 - Essential (primary) hypertension Status: Chronic - Plan This is a 63 y/o AAM with PMHx of DM and Metastatic Cervical Cancer admitted for inpatient management of upper GI bleed, now resolved, patient now pending placement, HD#16 1. Upper GI bleed, resolved Repeat EGD on 03/19 showed large 2 x 3 cm ulcer Continue PPI Recommend outpatient follow-up with GI following discharge Appreciate gastroenterology recommendations 2. Anemia, acute blood loss Due to upper GI bleed status post blood transfusion of 6U pRBC's Hgb Stable, last Hemoglobin 8.2 on 03/27 Follow-up CBC in AM 3. Shingles Cont. 7-day course of Valtrex started 03/29/2018 and acyclovir topical Topical acyclovir, continue switching to move per recent peripheral tissue persists 4. Metastatic Cervical Cancer Ongoing outpatient chemotherapy Pain control is adequate with Ofirmev and Oxy PRN 5. Type 2 Diabetes Mellitus Accu-Cheks with sliding scale insulin coverage Blood sugar 228, 180, 119 Diabetic diet 6. Hypotension Patient is asymptomatic but blood pressure lowered from baseline Will start NS at 125ml/hour Continue to monitor 7. Hypokalemia K3.2 on 03/27 Follow-up BMP in AM Will replace as needed 8. DVT Prophylaxis SCD's, patient was admitted for GI bleed so chemoprophylaxis is held 9. Dispo: F/u BP, Discharge planning, Difficult placement due to uninsured. Consider removing Paz in AM. Code Status: full Discussed Condition With: Patient, RN, family (1) Abdominal pain Qualifiers: Abdominal location: generalized Qualified Code(s): R10.84 - Generalized abdominal pain (5) Cervical cancer Qualifiers: Malignant neoplasm of cervix location: unspecified location Qualified Code(s) : C53.9 - Malignant neoplasm of cervix uteri, unspecified
[2018-03-31] MEDS: Sod Chloride 0.9% Inj 1,000 ML IV.CONT SCH (18:32)
[2018-04-01] MEDS: Insulin NovoLIN Regular Correctional Sugar Inj SQ SCH ×4 (01:09→17:48)
[2018-04-01] MEDS: Sod Chloride 0.9% Inj 1,000 ML IV.CONT SCH (05:58)
[2018-04-01] MEDS: valACYclovir 500 MG Tab PO SCH ×3 (05:58→22:03)
[2018-04-01 06:25] LABS: Baso % (Auto) 0.3 % (0.0-2.0); Eos % (Auto) 0.4 % (0.0-4.0); Hematocrit 21.9 % (35.0-46.0); Hemoglobin 7.6 gm/dL (11.6-15.3); Lymph # (Auto) 0.3 th/mm3 (1.0-4.8); Lymph % (Auto) 5.1 % (9.0-44.0); Mean Corpuscular HGB Conc 34.5 % (32.0-36.0); Mean Corpuscular Hemoglobin 32.6 pg (27.0-34.0); Mean Corpuscular Volume 94.4 fL (80.0-100.0); Mean Platelet Volume 6.4 fL (7.0-11.0); Mono # (Auto) 0.4 th/mm3 (0.0-0.9); Mono % (Auto) 7.2 % (0.0-8.0); Neut # (Auto) 5.2 th/mm3 (1.8-7.7); Platelet Count 183 th/mm3 (150-450); Red Blood Count 2.32 mil/mm3 (4.00-5.30); Red Cell Distribution Width 14.5 % (11.6-17.2)
[2018-04-01 06:55] LABS: Alanine Aminotransferase 26 U/L (10-53); Albumin 1.7 g/dL (3.4-5.0); Anion Gap 7 meq/L (5-15); Aspartate Aminotransferase 18 U/L (15-37); Blood Urea Nitrogen 15 mg/dL (7-18); Calcium 8.1 mg/dL (8.5-10.1); Carbon Dioxide 24.9 meq/L (21.0-32.0); Chloride 104 meq/L (98-107); Glomerular Filtration Rate 85 mL/min (>89); Glucose,Random 108 mg/dL (74-106); Potassium 4.1 meq/L (3.5-5.1); Sodium 136 meq/L (136-145)
[2018-04-01 06:58] LABS: Alkaline Phosphatase 151 U/L (45-117); Total Protein 6.6 g/dL (6.4-8.2)
[2018-04-01] MEDS: Sodium Chloride 0.9% 2 ML Flush BID IV.FLUSH SCH ×2 (13:06→22:04)
--- NOTE | 2018-04-01 14:56 | P.PN ---
Subjective Interval history: Patient tolerating p.o., and voiding/stooling well. Patient has no current concerns, no overnight events per RN. Physical Exam Vital signs: Vital Signs 03/31/18 16:00 03/31/18 20:00 04/01/18 00:00 Temperature 98.5 F 99.3 F 98.9 F Pulse Rate 100 H 95 H 89 Respiratory Rate 20 20 18 Blood Pressure 90/56 L 116/66 126/74 Pulse Oximetry 98 99 98 04/01/18 08:00 Temperature 98.2 F Pulse Rate 97 H Respiratory Rate 18 Blood Pressure 94/55 L Pulse Oximetry 97 Intake & Output 03/31/18 04/01/18 04/01/18 18:59 06:59 18:59 Intake Total 600 / 600 1000 / 1000 Output Total 600 / 600 1700 / 1700 Balance 0 / 0 -700 / -700 Weight 64 kg Intake: IV 1000 / 1000 NS Inj 1,000 ML @ 100 mls/hr IV 1000 / 1000 .CONT .Q10H SAMANTHA Rx#:[id number] Oral 600 / 600 Output: Urine 600 / 600 700 / 700 Urine Amount (Catheter) 1000 / 1000 PUREWIC 1000 / 1000 Other: Date of Last Bowel Movement 03/30/18 04/01/18 # Bowel Movements 1 Narrative: GENERAL: Well-nourished -[place] female, sitting comfortably in bed, in no acute distress SKIN: Warm and dry. HEAD: Normocephalic. EYES: No scleral icterus. No injection or drainage. NECK: Supple, trachea midline. No JVD or lymphadenopathy. CARDIOVASCULAR: Regular rate and rhythm without murmurs, gallops, or rubs. RESPIRATORY: Breath sounds equal bilaterally. No accessory muscle use. GASTROINTESTINAL: Abdomen soft, non-tender, nondistended. MUSCULOSKELETAL: No cyanosis, or edema. : paz to suction BACK: Nontender without obvious deformity. No CVA tenderness. NEURO: AAO x3, no focal deficits, speech is clear. - Urinary Catheter Management Straight Cath placed during this visit: yes, but has since been removed by the nurse Reason for continuing: Not indwelling catheter Insertion date: 03/16/18 Insertion time: 13:02 Removal date: 03/16/18 Removal time: 12:04 PUREWIC Cath placed during this visit: no Results - Labs CBC & Chem 7: 04/01/18 06:07 04/01/18 06:07 Laboratory Results - last 24 hr 03/31/18 04/01/18 04/01/18 17:45 00:59 06:07 WBC 6.0 RBC 2.32 L Hgb 7.6 L Hct 21.9 L MCV 94.4 MCH 32.6 MCHC 34.5 RDW 14.5 Plt Count 183 MPV 6.4 L Neut % (Auto) 87.0 H Lymph % (Auto) 5.1 L [place] % (Auto) 7.2 Eos % (Auto) 0.4 Baso % (Auto) 0.3 Neut # (Auto) 5.2 Lymph # (Auto) 0.3 L [place] # (Auto) 0.4 Eos # (Auto) 0.0 Baso # (Auto) 0.0 WBC Differential . Differential Comment Auto diff final Sodium Potassium Chloride Carbon Dioxide Anion Gap BUN Creatinine Estimated GFR POC Glucose 137 H 149 H Random Glucose Calcium Total Bilirubin AST ALT Alkaline Phosphatase Total Protein Albumin 04/01/18 04/01/18 04/01/18 06:07 06:17 11:28 WBC RBC Hgb Hct MCV MCH MCHC RDW Plt Count MPV Neut % (Auto) Lymph % (Auto) [place] % (Auto) Eos % (Auto) Baso % (Auto) Neut # (Auto) Lymph # (Auto) [place] # (Auto) Eos # (Auto) Baso # (Auto) WBC Differential Differential Comment Sodium 136 Potassium 4.1 Chloride 104 Carbon Dioxide 24.9 Anion Gap 7 BUN 15 Creatinine 0.82 Estimated GFR 85 L POC Glucose 127 H 202 H Random Glucose 108 H Calcium 8.1 L Total Bilirubin 0.2 AST 18 ALT 26 Alkaline Phosphatase 151 H Total Protein 6.6 D Albumin 1.7 L - Procedures EGD PROCEDURE REPORT EXAM DATE: 03/17/2018 PATIENT NAME: Morgan Salmeron MR #: [id number] BIRTHDATE: 1955 ATTENDING: Bailey Trevizo MD ORDER #: [id number] COMMUNICATIONS SENIOR ASSOCIATE: Kennedy Cabello and Keyanna Lubin STATUS: inpatient INDICATIONS: The patient is a 62 yr old female here for an EGD due to acute post hemorrhagic anemia and melena PROCEDURE PERFORMED: EGD w/ ablation MEDICATIONS: None and Per Anesthesia. TOPICAL ANESTHETIC: CONSENT: The patient understands the risks and benefits of the procedure and understands that these risks include, but are not limited to: sedation, allergic reaction, infection, perforation and/or bleeding. Alternative means of evaluation and treatment include, among others: physical exam, x-rays, and/or surgical intervention. The patient elects to proceed with this endoscopic procedure. medical equipment was checked for proper function. Hand hygiene and appropriate measures for infection prevention was taken. After the risks, benefits and alternatives of the procedure were thoroughly explained, Informed consent was verified, confirmed and timeout was successfully executed by the treatment team. The patient was anesthetized with topical anesthesia and the Pentax EG-2990i endoscope was introduced through the mouth and advanced to the first portion of the duodenum. Retroflexed views revealed large blood clot The gastroscope was then slowly withdrawn and removed. ESOPHAGUS: The mucosa of the esophagus appeared normal. STOMACH: Large blood clot covering 2/3rds of the stomach. No active bleeding. Suctioned as much as possible. DUODENUM: A large non-bleeding non-bleeding and shallow ulcer, ranging between 5-9mm in size, with surrounding edema, a pigmented spot and an adherent clot was found in the duodenal bulb. Argon plasma coagulation was applied to the site. With complete hemostasis achieved. ADVERSE EVENTS: There were no complications. IMPRESSIONS: 1. The esophagus appeared normal 2. Large blood clot covering 2/3rds of the stomach. No active bleeding. Suctioned as much as possible 3. Large non-bleeding ulcer, ranging between 5-9mm in size, was found in the duodenal bulb; Argon plasma coagulation was applied to the site; with complete hemostasis achieved 4. Retroflexed views revealed large blood clot RECOMMENDATIONS: 1. Continue PPI 2. Monitor in ICU, transfuse as needed. Clear liquid diet. IV reglan. REpeat egd tomorrow or monday depending upon clinical course. PATIENT CONDITION: stable DISPOSITION: Inpatient REPEAT EXAM: Return 1 day EGD Bailey Trevizo MD eSigned: Bailey Trevizo MD 03/17/2018 1:48 PM EGD PROCEDURE REPORT EXAM DATE: 03/19/2018 PATIENT NAME: Morgan Salmeron MR #: [id number] BIRTHDATE: 1955 ATTENDING: Bailey Trevizo MD ORDER #: [id number] COMMUNICATIONS SENIOR ASSOCIATE: Alberto Padilla Pena, Gabriela, and Guillermina Potter STATUS: inpatient INDICATIONS: The patient is a 62 yr old female here for an EGD due to acute post hemorrhagic anemia PROCEDURE PERFORMED: EGD, diagnostic MEDICATIONS: None and Per Anesthesia. TOPICAL ANESTHETIC: CONSENT: The patient understands the risks and benefits of the procedure and understands that these risks include, but are not limited to: sedation, allergic reaction, infection, perforation and/or bleeding. Alternative means of evaluation and treatment include, among others: physical exam, x-rays, and/or surgical intervention. The patient elects to proceed with this endoscopic procedure. medical equipment was checked for proper function. Hand hygiene and appropriate measures for infection prevention was taken. After the risks, benefits and alternatives of the procedure were thoroughly explained, Informed consent was verified, confirmed and timeout was successfully executed by the treatment team. The patient was anesthetized with topical anesthesia and the Pentax EG-2990i endoscope was introduced through the mouth and advanced to the second portion of the duodenum. Retroflexed views revealed no abnormalities The gastroscope was then slowly withdrawn and removed. ESOPHAGUS: The mucosa of the esophagus appeared normal. STOMACH: Two large non-bleeding, deep and irregular shaped ulcers, measuring 20 x 30mm in size, with heaped up edges, an adherent clot and a pigmented spot were found in the gastric body, on the lesser curvature of the stomach, and in the gastric antrum. DUODENUM: Two non-bleeding, shallow and clean-based ulcers ranging between 3-5 mm in size were found in the 1st part of the duodenum. ADVERSE EVENTS: There were no complications. IMPRESSIONS: 1. The esophagus appeared normal 2. Two large ulcers, measuring 20 x 30mm in size, were found in the gastric body, on the lesser curvature of the stomach, and in the gastric antrum 3. Two ulcers ranging between 3-5 mm in size were found in the 1st part of the duodenum 4. Retroflexed views revealed no abnormalities RECOMMENDATIONS: 1. Anti-reflux regimen 2. Continue PPI 3. If rebleeds needs IR consultation with L gastric artery embolization PATIENT CONDITION: stable DISPOSITION: Inpatient REPEAT EXAM: Return 1 month EGD Bailey Trevizo MD eSigned: Bailey Trevizo MD 03/19/2018 12:13 PM Assessment and Plan - Assessment (1) Abdominal pain Code(s): R10.9 - Unspecified abdominal pain Status: Resolved (2) Acute GI bleeding Code(s): K92.2 - Gastrointestinal hemorrhage, unspecified Status: Acute (3) Acute hypotension Code(s): I95.9 - Hypotension, unspecified Status: Acute (4) Upper GI bleed Code(s): K92.2 - Gastrointestinal hemorrhage, unspecified Status: Acute (5) Cervical cancer Code(s): C53.9 - Malignant neoplasm of cervix uteri, unspecified Status: Chronic (6) Diabetes Code(s): E11.9 - Type 2 diabetes mellitus without complications Status: Chronic (7) Chronic back pain Code(s): M54.9 - Dorsalgia, unspecified; G89.29 - Other chronic pain Status: Chronic (8) Hypertension Code(s): I10 - Essential (primary) hypertension Status: Chronic - Plan This is a 63 y/o AAM with PMHx of DM and Metastatic Cervical Cancer admitted for inpatient management of upper GI bleed, now resolved, patient now pending placement, HD#17 1. Upper GI bleed, resolved Repeat EGD on 03/19 showed large 2 x 3 cm ulcer Continue PPI Recommend outpatient follow-up with GI following discharge Appreciate gastroenterology recommendations 2. Anemia, acute blood loss Due to upper GI bleed status post blood transfusion of 6U pRBC's Hgb Stable, Hgb 7.6 today from 8.2 on 03/27 Likely hemo-dilutional due to IV fluids given yesterday Follow-up CBC in AM 3. Shingles Cont. 7-day course of Valtrex started 03/29/2018 and acyclovir topical Topical acyclovir, continue switching to move per recent peripheral tissue persists 4. Metastatic Cervical Cancer Ongoing outpatient chemotherapy Pain control is adequate with Ofirmev and Oxy PRN 5. Type 2 Diabetes Mellitus Accu-Cheks with sliding scale insulin coverage Blood sugar stable Diabetic diet 6. Hypotension, resolved s/p IVF's Continue to monitor 7. Hypokalemia, resolved K4.1 today Follow-up BMP in AM Will replace as needed 8. DVT Prophylaxis SCD's, patient was admitted for GI bleed so chemoprophylaxis is held 9. Dispo: Discharge planning, Difficult placement due to uninsured. Code Status: full Discussed Condition With: Patient, RN (1) Abdominal pain Qualifiers: Abdominal location: generalized Qualified Code(s): R10.84 - Generalized abdominal pain (5) Cervical cancer Qualifiers: Malignant neoplasm of cervix location: unspecified location Qualified Code(s) : C53.9 - Malignant neoplasm of cervix uteri, unspecified
[2018-04-02] MEDS: Insulin NovoLIN Regular Correctional Sugar Inj SQ SCH ×4 (00:30→17:43)
[2018-04-02] MEDS: valACYclovir 500 MG Tab PO SCH ×3 (06:38→22:04)
[2018-04-02] MEDS: Sodium Chloride 0.9% 2 ML Flush BID IV.FLUSH SCH ×2 (08:04→22:04)
[2018-04-02 09:51] LABS: Baso % (Auto) 0.1 % (0.0-2.0); Eos % (Auto) 0.3 % (0.0-4.0); Hemoglobin 7.2 gm/dL (11.6-15.3); Lymph # (Auto) 0.4 th/mm3 (1.0-4.8); Lymph % (Auto) 6.9 % (9.0-44.0); Mean Corpuscular HGB Conc 34.5 % (32.0-36.0); Mean Corpuscular Hemoglobin 34.2 pg (27.0-34.0); Mean Corpuscular Volume 99.1 fL (80.0-100.0); Mean Platelet Volume 6.7 fL (7.0-11.0); Mono # (Auto) 0.4 th/mm3 (0.0-0.9); Mono % (Auto) 7.7 % (0.0-8.0); Neut # (Auto) 4.4 th/mm3 (1.8-7.7); Platelet Count 168 th/mm3 (150-450); Red Cell Distribution Width 14.7 % (11.6-17.2); White Blood Count 5.2 th/mm3 (4.0-11.0)
[2018-04-02 09:54] LABS: Hematocrit 20.8 % (35.0-46.0)
[2018-04-02 10:03] LABS: Albumin 1.7 g/dL (3.4-5.0); Anion Gap 8 meq/L (5-15); Aspartate Aminotransferase 12 U/L (15-37); Blood Urea Nitrogen 12 mg/dL (7-18); Calcium 8.5 mg/dL (8.5-10.1); Carbon Dioxide 25.4 meq/L (21.0-32.0); Chloride 105 meq/L (98-107); Glomerular Filtration Rate 88 mL/min (>89); Glucose,Random 101 mg/dL (74-106); Potassium 4.1 meq/L (3.5-5.1); Sodium 138 meq/L (136-145)
[2018-04-02 10:05] LABS: Alanine Aminotransferase 23 U/L (10-53)
[2018-04-02 10:08] LABS: Alkaline Phosphatase 137 U/L (45-117); Total Protein 6.4 g/dL (6.4-8.2)
--- NOTE | 2018-04-02 14:33 | P.PN ---
Subjective Interval history: Patient doing well, patient is tolerating p.o. Voiding/stooling well. No events per RN. Patient reports no dark or bloody stools. Physical Exam Vital signs: Vital Signs 04/01/18 16:00 04/01/18 20:00 04/01/18 20:04 Temperature 99.8 F H 99.9 F H Pulse Rate 99 H 106 H 107 H Respiratory Rate 18 18 Blood Pressure 116/65 110/67 Pulse Oximetry 98 100 04/02/18 00:00 04/02/18 00:02 04/02/18 04:00 Temperature 98.9 F 98.5 F Pulse Rate 94 H 104 H 95 H Respiratory Rate 18 18 Blood Pressure 110/69 Pulse Oximetry 100 98 04/02/18 08:00 04/02/18 08:56 04/02/18 10:19 Temperature 99.5 F Pulse Rate 101 H Respiratory Rate 18 16 16 Blood Pressure 98/60 L Pulse Oximetry 97 04/02/18 12:00 04/02/18 12:41 04/02/18 13:04 Temperature Pulse Rate 89 Respiratory Rate 20 16 16 Blood Pressure 105/63 Pulse Oximetry 99 Intake & Output 04/01/18 04/02/18 04/02/18 18:59 06:59 18:59 Intake Total 480 / 480 Output Total 600 / 600 1000 / 1000 Balance -120 / -120 -1000 / -1000 Intake: Oral 480 / 480 Output: Urine 600 / 600 1000 / 1000 Other: Date of Last Bowel Movement 04/01/18 04/02/18 04/01/18 # Bowel Movements 1 2 Narrative: GENERAL: Well-nourished -[place] female, sitting comfortably in bed, in no acute distress SKIN: Warm and dry. HEAD: Normocephalic. EYES: No scleral icterus. No injection or drainage. NECK: Supple, trachea midline. No JVD or lymphadenopathy. CARDIOVASCULAR: Regular rate and rhythm without murmurs, gallops, or rubs. RESPIRATORY: Breath sounds equal bilaterally. No accessory muscle use. GASTROINTESTINAL: Abdomen soft, non-tender, nondistended. MUSCULOSKELETAL: No cyanosis, or edema. : paz to suction BACK: Nontender without obvious deformity. No CVA tenderness. NEURO: AAO x3, no focal deficits, speech is clear. - Urinary Catheter Management Straight Cath placed during this visit: yes, but has since been removed by the nurse Reason for continuing: Not indwelling catheter Insertion date: 03/16/18 Insertion time: 13:02 Removal date: 03/16/18 Removal time: 12:04 PUREWIC Cath placed during this visit: no Results - Labs CBC & Chem 7: 04/02/18 08:40 04/02/18 08:40 Laboratory Results - last 24 hr 04/01/18 04/02/18 04/02/18 17:44 00:18 06:15 WBC RBC Hgb Hct MCV MCH MCHC RDW Plt Count MPV Prelim Diff (Auto) Neut % (Auto) Lymph % (Auto) [place] % (Auto) Eos % (Auto) Baso % (Auto) Neut # (Auto) Lymph # (Auto) [place] # (Auto) Eos # (Auto) Baso # (Auto) WBC Differential Differential Comment Sodium Potassium Chloride Carbon Dioxide Anion Gap BUN Creatinine Estimated GFR POC Glucose 124 H 164 H 111 H Random Glucose Calcium Total Bilirubin AST ALT Alkaline Phosphatase Total Protein Albumin 04/02/18 04/02/18 04/02/18 08:40 08:40 11:38 WBC 5.2 RBC 2.10 L Hgb 7.2 L Hct 20.8 L* MCV 99.1 D MCH 34.2 H MCHC 34.5 RDW 14.7 Plt Count 168 MPV 6.7 L Prelim Diff (Auto) [place] Neut % (Auto) 85.0 H Lymph % (Auto) 6.9 L [place] % (Auto) 7.7 Eos % (Auto) 0.3 Baso % (Auto) 0.1 Neut # (Auto) 4.4 Lymph # (Auto) 0.4 L [place] # (Auto) 0.4 Eos # (Auto) 0.0 Baso # (Auto) 0.0 WBC Differential . Differential Comment Auto diff final Sodium 138 Potassium 4.1 Chloride 105 Carbon Dioxide 25.4 Anion Gap 8 BUN 12 Creatinine 0.80 Estimated GFR 88 L POC Glucose 198 H Random Glucose 101 Calcium 8.5 Total Bilirubin 0.2 AST 12 L ALT 23 Alkaline Phosphatase 137 H Total Protein 6.4 Albumin 1.7 L - Procedures EGD PROCEDURE REPORT EXAM DATE: 03/17/2018 PATIENT NAME: Morgan Salmeron MR #: [id number] BIRTHDATE: 1955 ATTENDING: Bailey Trevizo MD ORDER #: [id number] INSTITUTIONAL AIDE: Kennedy Cabello and Keyanna Lubin STATUS: inpatient INDICATIONS: The patient is a 62 yr old female here for an EGD due to acute post hemorrhagic anemia and melena PROCEDURE PERFORMED: EGD w/ ablation MEDICATIONS: None and Per Anesthesia. TOPICAL ANESTHETIC: CONSENT: The patient understands the risks and benefits of the procedure and understands that these risks include, but are not limited to: sedation, allergic reaction, infection, perforation and/or bleeding. Alternative means of evaluation and treatment include, among others: physical exam, x-rays, and/or surgical intervention. The patient elects to proceed with this endoscopic procedure. medical equipment was checked for proper function. Hand hygiene and appropriate measures for infection prevention was taken. After the risks, benefits and alternatives of the procedure were thoroughly explained, Informed consent was verified, confirmed and timeout was successfully executed by the treatment team. The patient was anesthetized with topical anesthesia and the Pentax EG-2990i endoscope was introduced through the mouth and advanced to the first portion of the duodenum. Retroflexed views revealed large blood clot The gastroscope was then slowly withdrawn and removed. ESOPHAGUS: The mucosa of the esophagus appeared normal. STOMACH: Large blood clot covering 2/3rds of the stomach. No active bleeding. Suctioned as much as possible. DUODENUM: A large non-bleeding non-bleeding and shallow ulcer, ranging between 5-9mm in size, with surrounding edema, a pigmented spot and an adherent clot was found in the duodenal bulb. Argon plasma coagulation was applied to the site. With complete hemostasis achieved. ADVERSE EVENTS: There were no complications. IMPRESSIONS: 1. The esophagus appeared normal 2. Large blood clot covering 2/3rds of the stomach. No active bleeding. Suctioned as much as possible 3. Large non-bleeding ulcer, ranging between 5-9mm in size, was found in the duodenal bulb; Argon plasma coagulation was applied to the site; with complete hemostasis achieved 4. Retroflexed views revealed large blood clot RECOMMENDATIONS: 1. Continue PPI 2. Monitor in ICU, transfuse as needed. Clear liquid diet. IV reglan. REpeat egd tomorrow or monday depending upon clinical course. PATIENT CONDITION: stable DISPOSITION: Inpatient REPEAT EXAM: Return 1 day EGD Bailey Trevizo MD eSigned: Bailey Trevizo MD 03/17/2018 1:48 PM EGD PROCEDURE REPORT EXAM DATE: 03/19/2018 PATIENT NAME: Morgan Salmeron MR #: [id number] BIRTHDATE: 1955 ATTENDING: Bailey Trevizo MD ORDER #: [id number] INSTITUTIONAL AIDE: Alberto Padilla Pena, Gabriela, and Guillermina Potter STATUS: inpatient INDICATIONS: The patient is a 62 yr old female here for an EGD due to acute post hemorrhagic anemia PROCEDURE PERFORMED: EGD, diagnostic MEDICATIONS: None and Per Anesthesia. TOPICAL ANESTHETIC: CONSENT: The patient understands the risks and benefits of the procedure and understands that these risks include, but are not limited to: sedation, allergic reaction, infection, perforation and/or bleeding. Alternative means of evaluation and treatment include, among others: physical exam, x-rays, and/or surgical intervention. The patient elects to proceed with this endoscopic procedure. medical equipment was checked for proper function. Hand hygiene and appropriate measures for infection prevention was taken. After the risks, benefits and alternatives of the procedure were thoroughly explained, Informed consent was verified, confirmed and timeout was successfully executed by the treatment team. The patient was anesthetized with topical anesthesia and the Pentax EG-2990i endoscope was introduced through the mouth and advanced to the second portion of the duodenum. Retroflexed views revealed no abnormalities The gastroscope was then slowly withdrawn and removed. ESOPHAGUS: The mucosa of the esophagus appeared normal. STOMACH: Two large non-bleeding, deep and irregular shaped ulcers, measuring 20 x 30mm in size, with heaped up edges, an adherent clot and a pigmented spot were found in the gastric body, on the lesser curvature of the stomach, and in the gastric antrum. DUODENUM: Two non-bleeding, shallow and clean-based ulcers ranging between 3-5 mm in size were found in the 1st part of the duodenum. ADVERSE EVENTS: There were no complications. IMPRESSIONS: 1. The esophagus appeared normal 2. Two large ulcers, measuring 20 x 30mm in size, were found in the gastric body, on the lesser curvature of the stomach, and in the gastric antrum 3. Two ulcers ranging between 3-5 mm in size were found in the 1st part of the duodenum 4. Retroflexed views revealed no abnormalities RECOMMENDATIONS: 1. Anti-reflux regimen 2. Continue PPI 3. If rebleeds needs IR consultation with L gastric artery embolization PATIENT CONDITION: stable DISPOSITION: Inpatient REPEAT EXAM: Return 1 month EGD Bailey Trevizo MD eSigned: Bailey Trevizo MD 03/19/2018 12:13 PM Assessment and Plan - Assessment (1) Abdominal pain Code(s): R10.9 - Unspecified abdominal pain Status: Resolved (2) Acute GI bleeding Code(s): K92.2 - Gastrointestinal hemorrhage, unspecified Status: Acute (3) Acute hypotension Code(s): I95.9 - Hypotension, unspecified Status: Acute (4) Upper GI bleed Code(s): K92.2 - Gastrointestinal hemorrhage, unspecified Status: Acute (5) Cervical cancer Code(s): C53.9 - Malignant neoplasm of cervix uteri, unspecified Status: Chronic (6) Diabetes Code(s): E11.9 - Type 2 diabetes mellitus without complications Status: Chronic (7) Chronic back pain Code(s): M54.9 - Dorsalgia, unspecified; G89.29 - Other chronic pain Status: Chronic (8) Hypertension Code(s): I10 - Essential (primary) hypertension Status: Chronic - Plan This is a 63 y/o AAM with PMHx of DM and Metastatic Cervical Cancer admitted for inpatient management of upper GI bleed, now resolved, patient now pending placement, HD#18 1. Upper GI bleed, resolved Repeat EGD on 03/19 showed large 2 x 3 cm ulcer Continue PPI Recommend outpatient follow-up with GI following discharge with rpt EGD in [address] [place] [address] gastroenterology recommendations 2. Anemia, acute blood loss Due to upper GI bleed status post blood transfusion of 6U pRBC's Hgb Stable but slowly trending down to 7.2 today, Hgb 8.2 on 03/27 Will obtain Hemeoccult from stool today Follow-up CBC in AM 3. Shingles Cont. 7-day course of Valtrex started 03/29/2018 and acyclovir topical Topical acyclovir, continue switching to move per recent peripheral tissue persists 4. Metastatic Cervical Cancer Ongoing outpatient chemotherapy Pain control is adequate with Ofirmev and Oxy PRN 5. Type 2 Diabetes Mellitus Accu-Cheks with sliding scale insulin coverage Blood sugar stable Diabetic diet 6. Hypotension, resolved s/p IVF's Continue to monitor 7. Hypokalemia, resolved K4.1 today Follow-up BMP in AM Will replace as needed 8. DVT Prophylaxis SCD's, patient was admitted for GI bleed so chemoprophylaxis is held 9. Dispo: Discharge planning, Difficult placement due to uninsured, F/u hemoccult due to Hgb trending down Code Status: full Discussed Condition With: patient, RN (1) Abdominal pain Qualifiers: Abdominal location: generalized Qualified Code(s): R10.84 - Generalized abdominal pain (5) Cervical cancer Qualifiers: Malignant neoplasm of cervix location: unspecified location Qualified Code(s) : C53.9 - Malignant neoplasm of cervix uteri, unspecified
[2018-04-03] MEDS: Insulin NovoLIN Regular Correctional Sugar Inj SQ SCH ×4 (04:25→17:02)
[2018-04-03 04:47] LABS: Baso % (Auto) 0.2 % (0.0-2.0); Eos % (Auto) 0.5 % (0.0-4.0); Lymph # (Auto) 0.3 th/mm3 (1.0-4.8); Lymph % (Auto) 5.9 % (9.0-44.0); Mean Corpuscular Hemoglobin 31.8 pg (27.0-34.0); Mean Corpuscular Volume 93.5 fL (80.0-100.0); Mono # (Auto) 0.4 th/mm3 (0.0-0.9); Neut # (Auto) 4.5 th/mm3 (1.8-7.7); Neut % (Auto) 85.4 % (16.0-70.0); Platelet Count 151 th/mm3 (150-450); Red Cell Distribution Width 14.6 % (11.6-17.2); White Blood Count 5.3 th/mm3 (4.0-11.0)
[2018-04-03 04:57] LABS: Hematocrit 20.6 % (35.0-46.0)
[2018-04-03 05:07] LABS: Albumin 1.7 g/dL (3.4-5.0); Anion Gap 7 meq/L (5-15); Aspartate Aminotransferase 16 U/L (15-37); Blood Urea Nitrogen 14 mg/dL (7-18); Calcium 8.4 mg/dL (8.5-10.1); Carbon Dioxide 26.5 meq/L (21.0-32.0); Chloride 104 meq/L (98-107); Glomerular Filtration Rate 83 mL/min (>89); Glucose,Random 95 mg/dL (74-106); Potassium 4.2 meq/L (3.5-5.1); Sodium 137 meq/L (136-145)
[2018-04-03 05:08] LABS: Alanine Aminotransferase 25 U/L (10-53)
[2018-04-03 05:11] LABS: Alkaline Phosphatase 142 U/L (45-117); Total Protein 6.5 g/dL (6.4-8.2)
[2018-04-03] MEDS: valACYclovir 500 MG Tab PO SCH ×3 (06:22→21:20)
[2018-04-03] MEDS: Sodium Chloride 0.9% 2 ML Flush BID IV.FLUSH SCH ×2 (08:15→21:20)
--- NOTE | 2018-04-03 13:09 | P.PN ---
Subjective Interval history: Patient doing well overnight. Patient is tolerating p.o., voiding/stooling well. Patient denies fatigue, chest pain, shortness of breath. No concerns. Physical Exam Vital signs: Vital Signs 04/02/18 16:00 04/02/18 16:45 04/02/18 17:46 Temperature 98.9 F Pulse Rate 99 H Respiratory Rate 18 16 16 Blood Pressure 98/57 L Pulse Oximetry 98 04/02/18 20:00 04/03/18 00:00 04/03/18 04:00 Temperature 99.4 F 98.8 F 99.1 F Pulse Rate 94 H 100 H 95 H Respiratory Rate 18 18 16 Blood Pressure 104/60 90/65 L 109/65 Pulse Oximetry 97 96 04/03/18 08:00 04/03/18 08:07 04/03/18 12:00 Temperature 99.6 F 99.6 F Pulse Rate 95 H 94 H Respiratory Rate 20 16 18 Blood Pressure 88/57 L 112/61 Pulse Oximetry 97 100 Intake & Output 04/02/18 04/03/18 04/03/18 18:59 06:59 18:59 Other: # Incontinent Voids 2 Date of Last Bowel Movement 04/01/18 03/30/18 04/01/18 Narrative: GENERAL: Well-nourished -[place] female, sitting comfortably in bed, in no acute distress SKIN: Warm and dry. HEAD: Normocephalic. EYES: No scleral icterus. No injection or drainage. NECK: Supple, trachea midline. No JVD or lymphadenopathy. CARDIOVASCULAR: Regular rate and rhythm without murmurs, gallops, or rubs. RESPIRATORY: Breath sounds equal bilaterally. No accessory muscle use. GASTROINTESTINAL: Abdomen soft, non-tender, nondistended. MUSCULOSKELETAL: No cyanosis, or edema. BACK: Nontender without obvious deformity. No CVA tenderness. NEURO: AAO x3, no focal deficits, speech is clear. - Urinary Catheter Management Straight Cath placed during this visit: yes, but has since been removed by the nurse Reason for continuing: Not indwelling catheter Insertion date: 03/16/18 Insertion time: 13:02 Removal date: 03/16/18 Removal time: 12:04 PUREWIC Cath placed during this visit: no Results - Labs CBC & Chem 7: 04/03/18 04:35 04/03/18 04:35 Laboratory Results - last 24 hr 04/02/18 04/02/18 04/03/18 17:40 22:02 01:08 WBC RBC Hgb Hct MCV MCH MCHC RDW Plt Count MPV Prelim Diff (Auto) Neut % (Auto) Lymph % (Auto) [place] % (Auto) Eos % (Auto) Baso % (Auto) Neut # (Auto) Lymph # (Auto) [place] # (Auto) Eos # (Auto) Baso # (Auto) WBC Differential Diff Scan Differential Comment Sodium Potassium Chloride Carbon Dioxide Anion Gap BUN Creatinine Estimated GFR POC Glucose 171 H 117 H 117 H Random Glucose Calcium Total Bilirubin AST ALT Alkaline Phosphatase Total Protein Albumin 04/03/18 04/03/18 04/03/18 04:35 04:35 06:20 WBC 5.3 RBC 2.20 L Hgb 7.0 L Hct 20.6 L* MCV 93.5 D MCH 31.8 MCHC 34.0 RDW 14.6 Plt Count 151 MPV 6.0 L Prelim Diff (Auto) Slide review pending Neut % (Auto) 85.4 H Lymph % (Auto) 5.9 L [place] % (Auto) 8.0 Eos % (Auto) 0.5 Baso % (Auto) 0.2 Neut # (Auto) 4.5 Lymph # (Auto) 0.3 L [place] # (Auto) 0.4 Eos # (Auto) 0.0 Baso # (Auto) 0.0 WBC Differential . Diff Scan Auto diff confirmed Differential Comment . Sodium 137 Potassium 4.2 Chloride 104 Carbon Dioxide 26.5 Anion Gap 7 BUN 14 Creatinine 0.84 Estimated GFR 83 L POC Glucose 109 Random Glucose 95 Calcium 8.4 L Total Bilirubin 0.2 AST 16 ALT 25 Alkaline Phosphatase 142 H Total Protein 6.5 Albumin 1.7 L 04/03/18 11:28 WBC RBC Hgb Hct MCV MCH MCHC RDW Plt Count MPV Prelim Diff (Auto) Neut % (Auto) Lymph % (Auto) [place] % (Auto) Eos % (Auto) Baso % (Auto) Neut # (Auto) Lymph # (Auto) [place] # (Auto) Eos # (Auto) Baso # (Auto) WBC Differential Diff Scan Differential Comment Sodium Potassium Chloride Carbon Dioxide Anion Gap BUN Creatinine Estimated GFR POC Glucose 146 H Random Glucose Calcium Total Bilirubin AST ALT Alkaline Phosphatase Total Protein Albumin - Procedures EGD PROCEDURE REPORT EXAM DATE: 03/17/2018 PATIENT NAME: Morgan Salmeron MR #: [id number] BIRTHDATE: 1955 ATTENDING: Bailey Trevizo MD ORDER #: [id number] PSYCHIATRIST: Kennedy Cabello and Keyanna Lubin STATUS: inpatient INDICATIONS: The patient is a 62 yr old female here for an EGD due to acute post hemorrhagic anemia and melena PROCEDURE PERFORMED: EGD w/ ablation MEDICATIONS: None and Per Anesthesia. TOPICAL ANESTHETIC: CONSENT: The patient understands the risks and benefits of the procedure and understands that these risks include, but are not limited to: sedation, allergic reaction, infection, perforation and/or bleeding. Alternative means of evaluation and treatment include, among others: physical exam, x-rays, and/or surgical intervention. The patient elects to proceed with this endoscopic procedure. medical equipment was checked for proper function. Hand hygiene and appropriate measures for infection prevention was taken. After the risks, benefits and alternatives of the procedure were thoroughly explained, Informed consent was verified, confirmed and timeout was successfully executed by the treatment team. The patient was anesthetized with topical anesthesia and the Pentax EG-2990i endoscope was introduced through the mouth and advanced to the first portion of the duodenum. Retroflexed views revealed large blood clot The gastroscope was then slowly withdrawn and removed. ESOPHAGUS: The mucosa of the esophagus appeared normal. STOMACH: Large blood clot covering 2/3rds of the stomach. No active bleeding. Suctioned as much as possible. DUODENUM: A large non-bleeding non-bleeding and shallow ulcer, ranging between 5-9mm in size, with surrounding edema, a pigmented spot and an adherent clot was found in the duodenal bulb. Argon plasma coagulation was applied to the site. With complete hemostasis achieved. ADVERSE EVENTS: There were no complications. IMPRESSIONS: 1. The esophagus appeared normal 2. Large blood clot covering 2/3rds of the stomach. No active bleeding. Suctioned as much as possible 3. Large non-bleeding ulcer, ranging between 5-9mm in size, was found in the duodenal bulb; Argon plasma coagulation was applied to the site; with complete hemostasis achieved 4. Retroflexed views revealed large blood clot RECOMMENDATIONS: 1. Continue PPI 2. Monitor in ICU, transfuse as needed. Clear liquid diet. IV reglan. REpeat egd tomorrow or monday depending upon clinical course. PATIENT CONDITION: stable DISPOSITION: Inpatient REPEAT EXAM: Return 1 day EGD Bailey Trevizo MD eSigned: Bailey Trevizo MD 03/17/2018 1:48 PM EGD PROCEDURE REPORT EXAM DATE: 03/19/2018 PATIENT NAME: Morgan Salmeron MR #: [id number] BIRTHDATE: 1955 ATTENDING: Bailey Trevizo MD ORDER #: [id number] PSYCHIATRIST: Alberto Padilla Pena, Gabriela, and Guillermina Potter STATUS: inpatient INDICATIONS: The patient is a 62 yr old female here for an EGD due to acute post hemorrhagic anemia PROCEDURE PERFORMED: EGD, diagnostic MEDICATIONS: None and Per Anesthesia. TOPICAL ANESTHETIC: CONSENT: The patient understands the risks and benefits of the procedure and understands that these risks include, but are not limited to: sedation, allergic reaction, infection, perforation and/or bleeding. Alternative means of evaluation and treatment include, among others: physical exam, x-rays, and/or surgical intervention. The patient elects to proceed with this endoscopic procedure. medical equipment was checked for proper function. Hand hygiene and appropriate measures for infection prevention was taken. After the risks, benefits and alternatives of the procedure were thoroughly explained, Informed consent was verified, confirmed and timeout was successfully executed by the treatment team. The patient was anesthetized with topical anesthesia and the Pentax EG-2990i endoscope was introduced through the mouth and advanced to the second portion of the duodenum. Retroflexed views revealed no abnormalities The gastroscope was then slowly withdrawn and removed. ESOPHAGUS: The mucosa of the esophagus appeared normal. STOMACH: Two large non-bleeding, deep and irregular shaped ulcers, measuring 20 x 30mm in size, with heaped up edges, an adherent clot and a pigmented spot were found in the gastric body, on the lesser curvature of the stomach, and in the gastric antrum. DUODENUM: Two non-bleeding, shallow and clean-based ulcers ranging between 3-5 mm in size were found in the 1st part of the duodenum. ADVERSE EVENTS: There were no complications. IMPRESSIONS: 1. The esophagus appeared normal 2. Two large ulcers, measuring 20 x 30mm in size, were found in the gastric body, on the lesser curvature of the stomach, and in the gastric antrum 3. Two ulcers ranging between 3-5 mm in size were found in the 1st part of the duodenum 4. Retroflexed views revealed no abnormalities RECOMMENDATIONS: 1. Anti-reflux regimen 2. Continue PPI 3. If rebleeds needs IR consultation with L gastric artery embolization PATIENT CONDITION: stable DISPOSITION: Inpatient REPEAT EXAM: Return 1 month EGD Bailey Trevizo MD eSigned: Bailey Trevizo MD 03/19/2018 12:13 PM Assessment and Plan - Assessment (1) Abdominal pain Code(s): R10.9 - Unspecified abdominal pain Status: Resolved (2) Acute GI bleeding Code(s): K92.2 - Gastrointestinal hemorrhage, unspecified Status: Acute (3) Acute hypotension Code(s): I95.9 - Hypotension, unspecified Status: Acute (4) Upper GI bleed Code(s): K92.2 - Gastrointestinal hemorrhage, unspecified Status: Acute (5) Cervical cancer Code(s): C53.9 - Malignant neoplasm of cervix uteri, unspecified Status: Chronic (6) Diabetes Code(s): E11.9 - Type 2 diabetes mellitus without complications Status: Chronic (7) Chronic back pain Code(s): M54.9 - Dorsalgia, unspecified; G89.29 - Other chronic pain Status: Chronic (8) Hypertension Code(s): I10 - Essential (primary) hypertension Status: Chronic - Plan This is a 63 y/o AAM with PMHx of DM and Metastatic Cervical Cancer admitted for inpatient management of upper GI bleed, now resolved, patient now pending placement, however today due to continued hemoglobin dropped to 7, is being transfused, HD#19 1. Anemia, acute blood loss Continued hemoglobin dropped to 7 today from 7.2, was 8.2 on 03/27 Suspect repeat upper GI bleed s/p blood transfusion of 6U pRBC's previously Will obtain Hemeoccult from stool today (ordered on 04/02 uncollected) Will transfuse 2U pRBC's today Switch PO PPI to IV Will reconsult GI, appreciate assistance Follow-up CBC in AM NPO for possible EGD in AM 2. Previous Upper GI bleed EGD on 03/19 showed large 2 x 3 cm ulcer, had planned for rpt EGD in 1mth Due to continued acute blood loss anemia, EGD in AM Appreciate gastroenterology recommendations 3. Shingles Cont. 7-day course of Valtrex started 03/29/2018 and acyclovir topical Topical acyclovir, continue switching to move per recent peripheral tissue persists 4. Metastatic Cervical Cancer Ongoing outpatient chemotherapy Pain control is adequate with Ofirmev and Oxy PRN 5. Type 2 Diabetes Mellitus Accu-Cheks with sliding scale insulin coverage Blood sugar stable Diabetic diet 6. DVT Prophylaxis SCD's, patient was admitted for GI bleed so chemoprophylaxis is held 7. Dispo: F/U GI reccs, NPO at [facility] for EGD, transfusing 2U today, F/u hemoccult Code Status: full Discussed Condition With: patient, RN (1) Abdominal pain Qualifiers: Abdominal location: generalized Qualified Code(s): R10.84 - Generalized abdominal pain (5) Cervical cancer Qualifiers: Malignant neoplasm of cervix location: unspecified location Qualified Code(s) : C53.9 - Malignant neoplasm of cervix uteri, unspecified
--- NOTE | 2018-04-03 13:54 | P.PNGI ---
Subjective Interval history: On 03/16/2018 with sharp stabbing epigastric and gastric abdominal pain. According to the record was also seen by her oncology team with symptoms of hypotension on the same day and also was having dark melena stools times 24 hours. Positive for daily NSAID use with her cancer and chemotherapy regimen. No known history of blood thinners and gastroenterology was consulted same day. Initial EGD performed showed normal esophagus and large blood clot covering two thirds of the stomach. Patient also had a large nonbleeding ulcer ranging between 5 and 9 mm in size found in the duodenal bulb IRC with complete hemostasis was achieved . Patient was transfused and stabilized. Repeat EGD for reevaluation showed 2 large ulcers found in the gastric body and in the gastric antrum and 2 ulcers found in the first part of the duodenum. Recommendations was antireflux regimen PPI and if she rebleeds consult IR for left gastric artery embolization. Reconsultation due to repeat symptomatic anemia. Hemoglobin noted on 2017 8.2, today on 04/03/2018 7., Patient currently to receive 2 units of packed RBCs today and gastroenterology reconsulted. Initial plan was to re- scope in 1 month to reevaluate. Physical Exam Vital signs: Vital Signs 04/02/18 16:00 04/02/18 16:45 04/02/18 17:46 Temperature 98.9 F Pulse Rate 99 H Respiratory Rate 18 16 16 Blood Pressure 98/57 L Pulse Oximetry 98 04/02/18 20:00 04/03/18 00:00 04/03/18 04:00 Temperature 99.4 F 98.8 F 99.1 F Pulse Rate 94 H 100 H 95 H Respiratory Rate 18 18 16 Blood Pressure 104/60 90/65 L 109/65 Pulse Oximetry 97 96 04/03/18 08:00 04/03/18 08:07 04/03/18 12:00 Temperature 99.6 F 99.6 F Pulse Rate 95 H 98 H Respiratory Rate 20 16 18 Blood Pressure 88/57 L 112/61 Pulse Oximetry 97 100 Intake & Output 04/02/18 04/03/18 04/03/18 18:59 06:59 18:59 Other: # Incontinent Voids 2 Date of Last Bowel Movement 04/01/18 03/30/18 04/01/18 - Urinary Catheter Management Straight Cath placed during this visit: yes, but has since been removed by the nurse Reason for continuing: Not indwelling catheter Insertion date: 03/16/18 Insertion time: 13:02 Removal date: 03/16/18 Removal time: 12:04 PUREWIC Cath placed during this visit: no Results - Labs CBC & Chem 7: 04/03/18 04:35 04/03/18 04:35 Laboratory Results - last 24 hr 04/02/18 04/02/18 04/03/18 17:40 22:02 01:08 WBC RBC Hgb Hct MCV MCH MCHC RDW Plt Count MPV Prelim Diff (Auto) Neut % (Auto) Lymph % (Auto) [place] % (Auto) Eos % (Auto) Baso % (Auto) Neut # (Auto) Lymph # (Auto) [place] # (Auto) Eos # (Auto) Baso # (Auto) WBC Differential Diff Scan Differential Comment Sodium Potassium Chloride Carbon Dioxide Anion Gap BUN Creatinine Estimated GFR POC Glucose 171 H 117 H 117 H Random Glucose Calcium Total Bilirubin AST ALT Alkaline Phosphatase Total Protein Albumin MTS Gel Crossmatch 04/03/18 04/03/18 04/03/18 04:35 04:35 06:20 WBC 5.3 RBC 2.20 L Hgb 7.0 L Hct 20.6 L* MCV 93.5 D MCH 31.8 MCHC 34.0 RDW 14.6 Plt Count 151 MPV 6.0 L Prelim Diff (Auto) Slide review pending Neut % (Auto) 85.4 H Lymph % (Auto) 5.9 L [place] % (Auto) 8.0 Eos % (Auto) 0.5 Baso % (Auto) 0.2 Neut # (Auto) 4.5 Lymph # (Auto) 0.3 L [place] # (Auto) 0.4 Eos # (Auto) 0.0 Baso # (Auto) 0.0 WBC Differential . Diff Scan Auto diff confirmed Differential Comment . Sodium 137 Potassium 4.2 Chloride 104 Carbon Dioxide 26.5 Anion Gap 7 BUN 14 Creatinine 0.84 Estimated GFR 83 L POC Glucose 109 Random Glucose 95 Calcium 8.4 L Total Bilirubin 0.2 AST 16 ALT 25 Alkaline Phosphatase 142 H Total Protein 6.5 Albumin 1.7 L MTS Gel Crossmatch 04/03/18 04/03/18 11:28 13:49 WBC RBC Hgb Hct MCV MCH MCHC RDW Plt Count MPV Prelim Diff (Auto) Neut % (Auto) Lymph % (Auto) [place] % (Auto) Eos % (Auto) Baso % (Auto) Neut # (Auto) Lymph # (Auto) [place] # (Auto) Eos # (Auto) Baso # (Auto) WBC Differential Diff Scan Differential Comment Sodium Potassium Chloride Carbon Dioxide Anion Gap BUN Creatinine Estimated GFR POC Glucose 146 H Random Glucose Calcium Total Bilirubin AST ALT Alkaline Phosphatase Total Protein Albumin MTS Gel Crossmatch See Detail - Procedures EGD PROCEDURE REPORT EXAM DATE: 03/17/2018 PATIENT NAME: Morgan Salmeron MR #: [id number] BIRTHDATE: 1955 ATTENDING: Bailey Trevizo MD ORDER #: [id number] MARKETING ASSISTANT RETAIL DIVISION: Kennedy Cabello and Keyanna Lubin STATUS: inpatient INDICATIONS: The patient is a 62 yr old female here for an EGD due to acute post hemorrhagic anemia and melena PROCEDURE PERFORMED: EGD w/ ablation MEDICATIONS: None and Per Anesthesia. TOPICAL ANESTHETIC: CONSENT: The patient understands the risks and benefits of the procedure and understands that these risks include, but are not limited to: sedation, allergic reaction, infection, perforation and/or bleeding. Alternative means of evaluation and treatment include, among others: physical exam, x-rays, and/or surgical intervention. The patient elects to proceed with this endoscopic procedure. medical equipment was checked for proper function. Hand hygiene and appropriate measures for infection prevention was taken. After the risks, benefits and alternatives of the procedure were thoroughly explained, Informed consent was verified, confirmed and timeout was successfully executed by the treatment team. The patient was anesthetized with topical anesthesia and the Pentax EG-2990i endoscope was introduced through the mouth and advanced to the first portion of the duodenum. Retroflexed views revealed large blood clot The gastroscope was then slowly withdrawn and removed. ESOPHAGUS: The mucosa of the esophagus appeared normal. STOMACH: Large blood clot covering 2/3rds of the stomach. No active bleeding. Suctioned as much as possible. DUODENUM: A large non-bleeding non-bleeding and shallow ulcer, ranging between 5-9mm in size, with surrounding edema, a pigmented spot and an adherent clot was found in the duodenal bulb. Argon plasma coagulation was applied to the site. With complete hemostasis achieved. ADVERSE EVENTS: There were no complications. IMPRESSIONS: 1. The esophagus appeared normal 2. Large blood clot covering 2/3rds of the stomach. No active bleeding. Suctioned as much as possible 3. Large non-bleeding ulcer, ranging between 5-9mm in size, was found in the duodenal bulb; Argon plasma coagulation was applied to the site; with complete hemostasis achieved 4. Retroflexed views revealed large blood clot RECOMMENDATIONS: 1. Continue PPI 2. Monitor in ICU, transfuse as needed. Clear liquid diet. IV reglan. REpeat egd tomorrow or monday depending upon clinical course. PATIENT CONDITION: stable DISPOSITION: Inpatient REPEAT EXAM: Return 1 day EGD Bailey Trevizo MD eSigned: Bailey Trevizo MD 03/17/2018 1:48 PM EGD PROCEDURE REPORT EXAM DATE: 03/19/2018 PATIENT NAME: Morgan Salmeron MR #: [id number] BIRTHDATE: 1955 ATTENDING: Bailey Trevizo MD ORDER #: [id number] MARKETING ASSISTANT RETAIL DIVISION: Alberto Padilla Pena, Gabriela, and Guillermina Potter STATUS: inpatient INDICATIONS: The patient is a 62 yr old female here for an EGD due to acute post hemorrhagic anemia PROCEDURE PERFORMED: EGD, diagnostic MEDICATIONS: None and Per Anesthesia. TOPICAL ANESTHETIC: CONSENT: The patient understands the risks and benefits of the procedure and understands that these risks include, but are not limited to: sedation, allergic reaction, infection, perforation and/or bleeding. Alternative means of evaluation and treatment include, among others: physical exam, x-rays, and/or surgical intervention. The patient elects to proceed with this endoscopic procedure. medical equipment was checked for proper function. Hand hygiene and appropriate measures for infection prevention was taken. After the risks, benefits and alternatives of the procedure were thoroughly explained, Informed consent was verified, confirmed and timeout was successfully executed by the treatment team. The patient was anesthetized with topical anesthesia and the Pentax EG-2990i endoscope was introduced through the mouth and advanced to the second portion of the duodenum. Retroflexed views revealed no abnormalities The gastroscope was then slowly withdrawn and removed. ESOPHAGUS: The mucosa of the esophagus appeared normal. STOMACH: Two large non-bleeding, deep and irregular shaped ulcers, measuring 20 x 30mm in size, with heaped up edges, an adherent clot and a pigmented spot were found in the gastric body, on the lesser curvature of the stomach, and in the gastric antrum. DUODENUM: Two non-bleeding, shallow and clean-based ulcers ranging between 3-5 mm in size were found in the 1st part of the duodenum. ADVERSE EVENTS: There were no complications. IMPRESSIONS: 1. The esophagus appeared normal 2. Two large ulcers, measuring 20 x 30mm in size, were found in the gastric body, on the lesser curvature of the stomach, and in the gastric antrum 3. Two ulcers ranging between 3-5 mm in size were found in the 1st part of the duodenum 4. Retroflexed views revealed no abnormalities RECOMMENDATIONS: 1. Anti-reflux regimen 2. Continue PPI 3. If rebleeds needs IR consultation with L gastric artery embolization PATIENT CONDITION: stable DISPOSITION: Inpatient REPEAT EXAM: Return 1 month EGD Bailey Trevizo MD eSigned: Bailey Trevizo MD 03/19/2018 12:13 PM
[2018-04-03] MEDS ORDERED: Sodium Chlor 0.9% Inj 250 ML IV.SIG SCH (14:00)
[2018-04-03] MEDS: Acetaminophen 325 MG Tablet PO PRN (15:42)
[2018-04-03] MEDS: Pantoprazole Inj 40 MG Vial IV.PUSH SCH (16:57)
[2018-04-04] MEDS: Insulin NovoLIN Regular Correctional Sugar Inj SQ SCH ×4 (01:43→18:30)
[2018-04-04] MEDS ORDERED: Chlorhexidine Gluconate 2% 1 Pack (2 Cloths) TOPICAL ONE (04:10)
[2018-04-04] MEDS: Pantoprazole Inj 40 MG Vial IV.PUSH SCH ×2 (05:29→18:32)
[2018-04-04] MEDS: valACYclovir 500 MG Tab PO SCH ×2 (05:31→20:44)
[2018-04-04 07:23] LABS: Albumin 1.8 g/dL (3.4-5.0); Anion Gap 7 meq/L (5-15); Aspartate Aminotransferase 19 U/L (15-37); Blood Urea Nitrogen 18 mg/dL (7-18); Calcium 8.4 mg/dL (8.5-10.1); Carbon Dioxide 26.2 meq/L (21.0-32.0); Chloride 102 meq/L (98-107); Glomerular Filtration Rate 68 mL/min (>89); Glucose,Random 110 mg/dL (74-106); Potassium 3.9 meq/L (3.5-5.1); Sodium 135 meq/L (136-145)
[2018-04-04 07:24] LABS: Alanine Aminotransferase 28 U/L (10-53)
[2018-04-04 07:26] LABS: Alkaline Phosphatase 160 U/L (45-117); Total Protein 6.7 g/dL (6.4-8.2)
[2018-04-04] MEDS: Sodium Chloride 0.9% 2 ML Flush BID IV.FLUSH SCH ×2 (09:39→22:06)
[2018-04-04 12:51] LABS: Baso % (Auto) 0.2 % (0.0-2.0); Eos % (Auto) 0.4 % (0.0-4.0); Hematocrit 31.1 % (35.0-46.0); Hemoglobin 10.8 gm/dL (11.6-15.3); Lymph # (Auto) 0.5 th/mm3 (1.0-4.8); Lymph % (Auto) 8.3 % (9.0-44.0); Mean Corpuscular HGB Conc 34.8 % (32.0-36.0); Mean Corpuscular Volume 89.2 fL (80.0-100.0); Mean Platelet Volume 6.6 fL (7.0-11.0); Mono # (Auto) 0.5 th/mm3 (0.0-0.9); Mono % (Auto) 7.7 % (0.0-8.0); Neut # (Auto) 5.2 th/mm3 (1.8-7.7); Neut % (Auto) 83.4 % (16.0-70.0); Platelet Count 157 th/mm3 (150-450); Red Blood Count 3.49 mil/mm3 (4.00-5.30); Red Cell Distribution Width 16.4 % (11.6-17.2); White Blood Count 6.2 th/mm3 (4.0-11.0)
--- NOTE | 2018-04-04 15:16 | P.PCN ---
Date of procedure: 04/04/18 Pre-op diagnosis: Worsening anemia, known recent history of stomach and duodenal ulcers Procedure: PROCEDURE PERFORMED EGD with biopsy PROCEDURE: The procedure, risks and benefits were discussed with Patient/POA and informed consent was obtained. Anesthesia sedated Patient with Diprivan. Patient was placed in the left lateral decubitus position. EGD: The Pentax videoscope was introduced through the oropharynx and advanced to the second portion of the duodenum under direct visualization. Retroflexion was performed in the stomach. FINDINGS: The esophagus there was some erythema with a white patch in the proximal end of the esophagus of unclear significance this was biopsied the rest of the esophagus was unremarkable The stomach again noted a large deep ulcer in the lesser curve of the stomach but clean based no visible vessel no blood or bleeding there was also patchy erythema in the stomach body and antrum biopsies were taken from the periphery of the ulcer The duodenum again noted 2 ulcers in the duodenal bulb and sweep fairly large and deep but clean base no visible vessel no blood or bleeding and the rest of the duodenum was unremarkable ESTIMATED BLOOD LOSS: None SPECIMENS REMOVED: Esophageal and gastric biopsies COMPLICATIONS: None IMPRESSION: Abnormal esophageal mucosa of unclear significance possible esophagitis Gastric ulcer Duodenal ulcers PLAN: Await biopsies Continue with pantoprazole 40 mg twice daily Consider adding Carafate Continue with current supportive care Anesthesia: MAC Surgeon: Yakov Soares Condition: stable Disposition: floor
--- NOTE | 2018-04-04 17:13 | P.PN ---
Subjective Interval history: Patient seen this morning prior to EGD. Patient is n.p.o. since midnight, and has no current concerns. Patient reports that she was previously tolerating p.o. and voiding/stooling well. Patient denies chest pain or shortness of breath. Physical Exam Vital signs: Vital Signs 04/03/18 18:20 04/03/18 19:01 04/03/18 20:00 Temperature 98.6 F 98.5 F Pulse Rate 93 H 92 H Respiratory Rate 16 18 18 Blood Pressure 101/55 L 114/67 Pulse Oximetry 97 04/04/18 00:00 04/04/18 04:00 04/04/18 07:59 Temperature 98.6 F 98.7 F Pulse Rate 90 99 H Respiratory Rate 18 18 19 Blood Pressure 116/70 96/54 L Pulse Oximetry 98 95 04/04/18 08:00 04/04/18 12:00 04/04/18 15:19 Temperature 98.4 F 98.6 F 99.4 F Pulse Rate 67 97 H 95 H Respiratory Rate 18 18 16 Blood Pressure 103/56 L 120/68 119/68 Pulse Oximetry 96 100 98 04/04/18 15:32 04/04/18 16:00 Temperature 99.4 F 99.4 F Pulse Rate 93 H 94 H Respiratory Rate 16 16 Blood Pressure 116/68 134/76 Pulse Oximetry 97 99 Intake & Output 04/03/18 04/04/18 04/04/18 18:59 06:59 18:59 Intake Total 400 / 400 400 / 400 Output Total 1000 / 1000 Balance 400 / 400 -600 / -600 Intake: Intake (Blood Product) Amt 400 / 400 400 / 400 Rbc As-3 Leukoreduced Unit 400 / 400 [id number] Rbc As-3 Leukoreduced Unit 400 / 400 [id number] Output: Urine 1000 / 1000 Other: # Incontinent Voids 1 Date of Last Bowel Movement 04/01/18 04/01/18 Narrative: GENERAL: Well-nourished -[place] female, sitting comfortably in bed, in no acute distress SKIN: Warm and dry. HEAD: Normocephalic. EYES: No scleral icterus. No injection or drainage. NECK: Supple, trachea midline. No JVD or lymphadenopathy. CARDIOVASCULAR: Regular rate and rhythm without murmurs, gallops, or rubs. RESPIRATORY: Breath sounds equal bilaterally. No accessory muscle use. GASTROINTESTINAL: Abdomen soft, non-tender, nondistended. MUSCULOSKELETAL: No cyanosis, or edema. BACK: Nontender without obvious deformity. No CVA tenderness. NEURO: AAO x3, no focal deficits, speech is clear. - Urinary Catheter Management Straight Cath placed during this visit: yes, but has since been removed by the nurse Reason for continuing: Not indwelling catheter Insertion date: 03/16/18 Insertion time: 13:02 Removal date: 03/16/18 Removal time: 12:04 PUREWIC Cath placed during this visit: no Results - Labs CBC & Chem 7: 04/04/18 12:25 04/04/18 05:30 Laboratory Results - last 24 hr 04/03/18 04/03/18 04/04/18 13:49 16:57 01:33 WBC RBC Hgb Hct MCV MCH MCHC RDW Plt Count MPV Neut % (Auto) Lymph % (Auto) [place] % (Auto) Eos % (Auto) Baso % (Auto) Neut # (Auto) Lymph # (Auto) [place] # (Auto) Eos # (Auto) Baso # (Auto) WBC Differential Differential Comment Sodium Potassium Chloride Carbon Dioxide Anion Gap BUN Creatinine Estimated GFR POC Glucose 130 H 175 H Random Glucose Calcium Total Bilirubin AST ALT Alkaline Phosphatase Total Protein Albumin Blood Type O Positive Blood Type Recheck Not needed Antibody Screen Negative MTS Gel Crossmatch See Detail 04/04/18 04/04/18 04/04/18 01:34 05:21 05:30 WBC RBC Hgb Hct MCV MCH MCHC RDW Plt Count MPV Neut % (Auto) Lymph % (Auto) [place] % (Auto) Eos % (Auto) Baso % (Auto) Neut # (Auto) Lymph # (Auto) [place] # (Auto) Eos # (Auto) Baso # (Auto) WBC Differential Differential Comment Sodium 135 L Potassium 3.9 Chloride 102 Carbon Dioxide 26.2 Anion Gap 7 BUN 18 Creatinine 1.00 Estimated GFR 68 L POC Glucose 144 H 128 H Random Glucose 110 H Calcium 8.4 L Total Bilirubin 0.4 AST 19 ALT 28 Alkaline Phosphatase 160 H Total Protein 6.7 Albumin 1.8 L Blood Type Blood Type Recheck Antibody Screen MTS Gel Crossmatch 04/04/18 04/04/18 04/04/18 12:25 12:53 16:57 WBC 6.2 RBC 3.49 L Hgb 10.8 L D Hct 31.1 L MCV 89.2 D MCH 31.0 MCHC 34.8 RDW 16.4 Plt Count 157 MPV 6.6 L Neut % (Auto) 83.4 H Lymph % (Auto) 8.3 L [place] % (Auto) 7.7 Eos % (Auto) 0.4 Baso % (Auto) 0.2 Neut # (Auto) 5.2 Lymph # (Auto) 0.5 L [place] # (Auto) 0.5 Eos # (Auto) 0.0 Baso # (Auto) 0.0 WBC Differential . Differential Comment Auto diff final Sodium Potassium Chloride Carbon Dioxide Anion Gap BUN Creatinine Estimated GFR POC Glucose 99 94 Random Glucose Calcium Total Bilirubin AST ALT Alkaline Phosphatase Total Protein Albumin Blood Type Blood Type Recheck Antibody Screen MTS Gel Crossmatch - Procedures EGD PROCEDURE REPORT EXAM DATE: 03/17/2018 PATIENT NAME: Morgan Salmeron MR #: [id number] BIRTHDATE: 1955 ATTENDING: Bailey Trevizo MD ORDER #: [id number] PRECISION ASSEMBLY INSPECTOR: Kennedy Cabello and Keyanna Lubin STATUS: inpatient INDICATIONS: The patient is a 62 yr old female here for an EGD due to acute post hemorrhagic anemia and melena PROCEDURE PERFORMED: EGD w/ ablation MEDICATIONS: None and Per Anesthesia. TOPICAL ANESTHETIC: CONSENT: The patient understands the risks and benefits of the procedure and understands that these risks include, but are not limited to: sedation, allergic reaction, infection, perforation and/or bleeding. Alternative means of evaluation and treatment include, among others: physical exam, x-rays, and/or surgical intervention. The patient elects to proceed with this endoscopic procedure. medical equipment was checked for proper function. Hand hygiene and appropriate measures for infection prevention was taken. After the risks, benefits and alternatives of the procedure were thoroughly explained, Informed consent was verified, confirmed and timeout was successfully executed by the treatment team. The patient was anesthetized with topical anesthesia and the Pentax EG-2990i endoscope was introduced through the mouth and advanced to the first portion of the duodenum. Retroflexed views revealed large blood clot The gastroscope was then slowly withdrawn and removed. ESOPHAGUS: The mucosa of the esophagus appeared normal. STOMACH: Large blood clot covering 2/3rds of the stomach. No active bleeding. Suctioned as much as possible. DUODENUM: A large non-bleeding non-bleeding and shallow ulcer, ranging between 5-9mm in size, with surrounding edema, a pigmented spot and an adherent clot was found in the duodenal bulb. Argon plasma coagulation was applied to the site. With complete hemostasis achieved. ADVERSE EVENTS: There were no complications. IMPRESSIONS: 1. The esophagus appeared normal 2. Large blood clot covering 2/3rds of the stomach. No active bleeding. Suctioned as much as possible 3. Large non-bleeding ulcer, ranging between 5-9mm in size, was found in the duodenal bulb; Argon plasma coagulation was applied to the site; with complete hemostasis achieved 4. Retroflexed views revealed large blood clot RECOMMENDATIONS: 1. Continue PPI 2. Monitor in ICU, transfuse as needed. Clear liquid diet. IV reglan. REpeat egd tomorrow or monday depending upon clinical course. PATIENT CONDITION: stable DISPOSITION: Inpatient REPEAT EXAM: Return 1 day EGD Bailey Trevizo MD eSigned: Bailey Trevizo MD 03/17/2018 1:48 PM EGD PROCEDURE REPORT EXAM DATE: 03/19/2018 PATIENT NAME: Morgan Salmeron MR #: [id number] BIRTHDATE: 1955 ATTENDING: Bailey Trevizo MD ORDER #: [id number] PRECISION ASSEMBLY INSPECTOR: Alberto Padilla Pena, Gabriela, and Guillermina Potter STATUS: inpatient INDICATIONS: The patient is a 62 yr old female here for an EGD due to acute post hemorrhagic anemia PROCEDURE PERFORMED: EGD, diagnostic MEDICATIONS: None and Per Anesthesia. TOPICAL ANESTHETIC: CONSENT: The patient understands the risks and benefits of the procedure and understands that these risks include, but are not limited to: sedation, allergic reaction, infection, perforation and/or bleeding. Alternative means of evaluation and treatment include, among others: physical exam, x-rays, and/or surgical intervention. The patient elects to proceed with this endoscopic procedure. medical equipment was checked for proper function. Hand hygiene and appropriate measures for infection prevention was taken. After the risks, benefits and alternatives of the procedure were thoroughly explained, Informed consent was verified, confirmed and timeout was successfully executed by the treatment team. The patient was anesthetized with topical anesthesia and the [employer] EG-2990[facility] endoscope was introduced through the mouth and advanced to the second portion of the duodenum. Retroflexed views revealed no abnormalities The gastroscope was then slowly withdrawn and removed. ESOPHAGUS: The mucosa of the esophagus appeared normal. STOMACH: Two large non-bleeding, deep and irregular shaped ulcers, measuring 20 x 30mm in size, with heaped up edges, an adherent clot and a pigmented spot were found in the gastric body, on the lesser curvature of the stomach, and in the gastric antrum. DUODENUM: Two non-bleeding, shallow and clean-based ulcers ranging between 3-5 mm in size were found in the 1st part of the duodenum. ADVERSE EVENTS: There were no complications. IMPRESSIONS: 1. The esophagus appeared normal 2. Two large ulcers, measuring 20 x 30mm in size, were found in the gastric body, on the lesser curvature of the stomach, and in the gastric antrum 3. Two ulcers ranging between 3-5 mm in size were found in the 1st part of the duodenum 4. Retroflexed views revealed no abnormalities RECOMMENDATIONS: 1. Anti-reflux regimen 2. Continue PPI 3. If rebleeds needs IR consultation with L gastric artery embolization PATIENT CONDITION: stable DISPOSITION: Inpatient REPEAT EXAM: Return 1 month EGD Bailey Trevizo MD eSigned: Bailey Trevizo MD 03/19/2018 12:13 PM Assessment and Plan - Assessment (1) Abdominal pain Code(s): R10.9 - Unspecified abdominal pain Status: Resolved (2) Acute GI bleeding Code(s): K92.2 - Gastrointestinal hemorrhage, unspecified Status: Acute (3) Acute hypotension Code(s): I95.9 - Hypotension, unspecified Status: Acute (4) Upper GI bleed Code(s): K92.2 - Gastrointestinal hemorrhage, unspecified Status: Acute (5) Cervical cancer Code(s): C53.9 - Malignant neoplasm of cervix uteri, unspecified Status: Chronic (6) Diabetes Code(s): E11.9 - Type 2 diabetes mellitus without complications Status: Chronic (7) Chronic back pain Code(s): M54.9 - Dorsalgia, unspecified; G89.29 - Other chronic pain Status: Chronic (8) Hypertension Code(s): I10 - Essential (primary) hypertension Status: Chronic - Plan This is a 63 y/o AAM with PMHx of DM and Metastatic Cervical Cancer admitted for inpatient management of upper GI bleed, now resolved, patient now pending placement, however today due to continued hemoglobin dropped to 7, is being transfused, HD#19 1. Anemia, acute blood loss Continued hemoglobin dropped to 7 on 04/03, s/p 2U of pRBC's, Hgb 10.8 today Suspect repeat upper GI bleed, scheduled for EGD today, has been NPO since midnight s/p blood transfusion of 6U pRBC's previously this admission Continue PPI IV GI managing, appreciate assistance Follow-up CBC in AM NPO for possible EGD in AM 2. Previous Upper GI bleed EGD on 03/19 showed large 2 x 3 cm ulcer, had planned for rpt EGD in 1mth Due to continued acute blood loss anemia, EGD in AM Appreciate gastroenterology recommendations Per GI Reccs 04/03: We will proceed with an upper endoscopy tomorrow to further evaluate worsening anemia with known history of recent gastric ulcers and duodenal ulcers 3. Shingles, resolved s/p 7-day course of Valtrex and topical Acyclovir, stopped on 04/04 4. Metastatic Cervical Cancer Ongoing outpatient chemotherapy Pain control is adequate with Ofirmev and Oxy PRN 5. Type 2 Diabetes Mellitus Accu-Cheks with sliding scale insulin coverage Blood sugar stable Diabetic diet 6. DVT Prophylaxis: SCD's 7. Dispo: F/U EGD results Code Status: full (1) Abdominal pain Qualifiers: Abdominal location: generalized Qualified Code(s): R10.84 - Generalized abdominal pain (5) Cervical cancer Qualifiers: Malignant neoplasm of cervix location: unspecified location Qualified Code(s) : C53.9 - Malignant neoplasm of cervix uteri, unspecified
[2018-04-04] MEDS: Sodium Chlor 0.9% Inj 500 ML IV.SIG SCH (22:07)
[2018-04-05] MEDS: Insulin NovoLIN Regular Correctional Sugar Inj SQ SCH ×4 (01:00→17:27)
[2018-04-05 05:32] LABS: Hematocrit 26.9 % (35.0-46.0); Hemoglobin 9.4 gm/dL (11.6-15.3); Mean Corpuscular Hemoglobin 31.3 pg (27.0-34.0); Mean Corpuscular Volume 89.3 fL (80.0-100.0); Mean Platelet Volume 6.4 fL (7.0-11.0); Platelet Count 145 th/mm3 (150-450); Red Blood Count 3.01 mil/mm3 (4.00-5.30); Red Cell Distribution Width 16.4 % (11.6-17.2); White Blood Count 6.6 th/mm3 (4.0-11.0)
[2018-04-05 06:00] LABS: Albumin 1.9 g/dL (3.4-5.0); Anion Gap 6 meq/L (5-15); Aspartate Aminotransferase 19 U/L (15-37); Blood Urea Nitrogen 16 mg/dL (7-18); Calcium 8.6 mg/dL (8.5-10.1); Carbon Dioxide 26.8 meq/L (21.0-32.0); Chloride 103 meq/L (98-107); Glomerular Filtration Rate 75 mL/min (>89); Glucose,Random 110 mg/dL (74-106); Sodium 136 meq/L (136-145)
[2018-04-05 06:01] LABS: Alanine Aminotransferase 28 U/L (10-53)
[2018-04-05 06:03] LABS: Alkaline Phosphatase 158 U/L (45-117); Total Protein 6.9 g/dL (6.4-8.2)
[2018-04-05] MEDS: Pantoprazole Inj 40 MG Vial IV.PUSH SCH (06:23)
[2018-04-05] MEDS: Sodium Chloride 0.9% 2 ML Flush BID IV.FLUSH SCH ×2 (08:02→22:31)
--- NOTE | 2018-04-05 12:03 | P.PNGI ---
Subjective Interval history: Pt is in bedside chair. Denies any nausea or vomiting. States she has been tolerating diet. Had a BM earlier, does not think there was any bleeding. Having some mild abdominal pain. <JevonedMarivel - Last Filed: 04/05/18 11:55> Physical Exam Vital signs: Vital Signs 04/04/18 12:00 04/04/18 15:19 04/04/18 15:32 Temperature 98.6 F 99.4 F 99.4 F Pulse Rate 101 H 95 H 93 H Respiratory Rate 18 16 16 Blood Pressure 120/68 119/68 116/68 Pulse Oximetry 100 98 97 04/04/18 16:00 04/04/18 20:00 04/05/18 00:00 Temperature 99.4 F 99.2 F 99.3 F Pulse Rate 94 H 103 H 95 H Respiratory Rate 16 16 18 Blood Pressure 134/76 109/62 121/79 Pulse Oximetry 99 95 99 04/05/18 04:00 04/05/18 08:00 Temperature 98.5 F 99.0 F Pulse Rate 94 H 95 H Respiratory Rate 16 18 Blood Pressure 121/71 113/68 Pulse Oximetry 98 98 Intake & Output 04/04/18 04/05/18 04/05/18 18:59 06:59 18:59 Intake Total 1160 / 1160 250 / 250 Output Total 2007 1400 / 1400 Balance -848 / -848 -1150 / -1150 Intake: IV 250 / 250 Oral 960 / 960 Anesthesia Amount 200 / 200 Output: Urine 1000 / 1000 1400 / 1400 Stool 8 / 8 Urine Amount (Catheter) 1000 / 1000 PUREWIC 1000 / 1000 Other: # Voids 3 # Incontinent Voids 1 # Urine Diapers 2 Date of Last Bowel Movement 04/01/18 # Bowel Movements 2 # Incontinent Bowel Movements 2 - Constitutional no acute distress - Routine HEENT Exam Head: Present: normocephalic, atraumatic - Routine Respiratory Exam Absent: accessory muscle use - Routine Abdominal Exam Present: soft, normoactive bowel sounds, tenderness. Absent: distended - Routine Skin Exam Present: dry, warm - Routine Neurological Exam Present: alert, oriented X3 - Urinary Catheter Management Straight Cath placed during this visit: yes, but has since been removed by the nurse Reason for continuing: Not indwelling catheter Insertion date: 03/16/18 Insertion time: 13:02 Removal date: 03/16/18 Removal time: 12:04 PUREWIC Cath placed during this visit: no <Marivel Pandya - Last Filed: 04/05/18 11:55> Vital signs: Vital Signs 04/05/18 00:00 04/05/18 04:00 04/05/18 08:00 Temperature 99.3 F 98.5 F 99.0 F Pulse Rate 95 H 94 H 95 H Respiratory Rate 18 16 18 Blood Pressure 121/79 121/71 113/68 Pulse Oximetry 99 98 98 04/05/18 12:00 04/05/18 16:00 Temperature 98.3 F 98.4 F Pulse Rate 92 H 96 H Respiratory Rate 16 20 Blood Pressure 111/69 102/61 Pulse Oximetry 99 98 Intake & Output 04/05/18 04/05/18 04/06/18 06:59 18:59 06:59 Intake Total 250 / 250 Output Total 1400 / 1400 Balance -1150 / -1150 Intake: IV 250 / 250 Output: Urine 1400 / 1400 - Urinary Catheter Management Straight Cath placed during this visit: no PUREWIC Cath placed during this visit: no <Yakov Soares - Last Filed: 04/05/18 21:33> Results - Labs CBC & Chem 7: 04/05/18 05:14 04/05/18 05:14 Laboratory Results - last 24 hr 04/04/18 04/04/18 04/04/18 12:25 12:53 16:57 WBC 6.2 RBC 3.49 L Hgb 10.8 L D Hct 31.1 L MCV 89.2 D MCH 31.0 MCHC 34.8 RDW 16.4 Plt Count 157 MPV 6.6 L Neut % (Auto) 83.4 H Lymph % (Auto) 8.3 L [place] % (Auto) 7.7 Eos % (Auto) 0.4 Baso % (Auto) 0.2 Neut # (Auto) 5.2 Lymph # (Auto) 0.5 L [place] # (Auto) 0.5 Eos # (Auto) 0.0 Baso # (Auto) 0.0 WBC Differential . Differential Comment Auto diff final Sodium Potassium Chloride Carbon Dioxide Anion Gap BUN Creatinine Estimated GFR POC Glucose 99 94 Random Glucose Calcium Total Bilirubin AST ALT Alkaline Phosphatase Total Protein Albumin 04/05/18 04/05/18 04/05/18 00:05 05:14 05:14 WBC 6.6 RBC 3.01 L Hgb 9.4 L Hct 26.9 L MCV 89.3 MCH 31.3 MCHC 35.0 RDW 16.4 Plt Count 145 L MPV 6.4 L Neut % (Auto) Lymph % (Auto) [place] % (Auto) Eos % (Auto) Baso % (Auto) Neut # (Auto) Lymph # (Auto) [place] # (Auto) Eos # (Auto) Baso # (Auto) WBC Differential Differential Comment Sodium 136 Potassium 4.0 Chloride 103 Carbon Dioxide 26.8 Anion Gap 6 BUN 16 Creatinine 0.92 Estimated GFR 75 L POC Glucose 146 H Random Glucose 110 H Calcium 8.6 Total Bilirubin 0.4 AST 19 ALT 28 Alkaline Phosphatase 158 H Total Protein 6.9 Albumin 1.9 L 04/05/18 06:21 WBC RBC Hgb Hct MCV MCH MCHC RDW Plt Count MPV Neut % (Auto) Lymph % (Auto) [place] % (Auto) Eos % (Auto) Baso % (Auto) Neut # (Auto) Lymph # (Auto) [place] # (Auto) Eos # (Auto) Baso # (Auto) WBC Differential Differential Comment Sodium Potassium Chloride Carbon Dioxide Anion Gap BUN Creatinine Estimated GFR POC Glucose 115 H Random Glucose Calcium Total Bilirubin AST ALT Alkaline Phosphatase Total Protein Albumin - Procedures EGD PROCEDURE REPORT EXAM DATE: 03/17/2018 PATIENT NAME: Morgan Salmeron MR #: [id number] BIRTHDATE: 1955 ATTENDING: Bailey Trevizo MD ORDER #: [id number] METAL WINDOW SCREEN ASSEMBLER: Kennedy Cabello and Keyanna Lubin STATUS: inpatient INDICATIONS: The patient is a 62 yr old female here for an EGD due to acute post hemorrhagic anemia and melena PROCEDURE PERFORMED: EGD w/ ablation MEDICATIONS: None and Per Anesthesia. TOPICAL ANESTHETIC: CONSENT: The patient understands the risks and benefits of the procedure and understands that these risks include, but are not limited to: sedation, allergic reaction, infection, perforation and/or bleeding. Alternative means of evaluation and treatment include, among others: physical exam, x-rays, and/or surgical intervention. The patient elects to proceed with this endoscopic procedure. medical equipment was checked for proper function. Hand hygiene and appropriate measures for infection prevention was taken. After the risks, benefits and alternatives of the procedure were thoroughly explained, Informed consent was verified, confirmed and timeout was successfully executed by the treatment team. The patient was anesthetized with topical anesthesia and the Pentax EG-2990i endoscope was introduced through the mouth and advanced to the first portion of the duodenum. Retroflexed views revealed large blood clot The gastroscope was then slowly withdrawn and removed. ESOPHAGUS: The mucosa of the esophagus appeared normal. STOMACH: Large blood clot covering 2/3rds of the stomach. No active bleeding. Suctioned as much as possible. DUODENUM: A large non-bleeding non-bleeding and shallow ulcer, ranging between 5-9mm in size, with surrounding edema, a pigmented spot and an adherent clot was found in the duodenal bulb. Argon plasma coagulation was applied to the site. With complete hemostasis achieved. ADVERSE EVENTS: There were no complications. IMPRESSIONS: 1. The esophagus appeared normal 2. Large blood clot covering 2/3rds of the stomach. No active bleeding. Suctioned as much as possible 3. Large non-bleeding ulcer, ranging between 5-9mm in size, was found in the duodenal bulb; Argon plasma coagulation was applied to the site; with complete hemostasis achieved 4. Retroflexed views revealed large blood clot RECOMMENDATIONS: 1. Continue PPI 2. Monitor in ICU, transfuse as needed. Clear liquid diet. IV reglan. REpeat egd tomorrow or monday depending upon clinical course. PATIENT CONDITION: stable DISPOSITION: Inpatient REPEAT EXAM: Return 1 day EGD Bailey Trevizo MD eSigned: Bailey Trevizo MD 03/17/2018 1:48 PM EGD PROCEDURE REPORT EXAM DATE: 03/19/2018 PATIENT NAME: Morgan Salmeron MR #: [id number] BIRTHDATE: 1955 ATTENDING: Bailey Trevizo MD ORDER #: [id number] METAL WINDOW SCREEN ASSEMBLER: Alberto Padilla Pena, Gabriela, and Guillermina Potter STATUS: inpatient INDICATIONS: The patient is a 62 yr old female here for an EGD due to acute post hemorrhagic anemia PROCEDURE PERFORMED: EGD, diagnostic MEDICATIONS: None and Per Anesthesia. TOPICAL ANESTHETIC: CONSENT: The patient understands the risks and benefits of the procedure and understands that these risks include, but are not limited to: sedation, allergic reaction, infection, perforation and/or bleeding. Alternative means of evaluation and treatment include, among others: physical exam, x-rays, and/or surgical intervention. The patient elects to proceed with this endoscopic procedure. medical equipment was checked for proper function. Hand hygiene and appropriate measures for infection prevention was taken. After the risks, benefits and alternatives of the procedure were thoroughly explained, Informed consent was verified, confirmed and timeout was successfully executed by the treatment team. The patient was anesthetized with topical anesthesia and the Pentax EG-2990i endoscope was introduced through the mouth and advanced to the second portion of the duodenum. Retroflexed views revealed no abnormalities The gastroscope was then slowly withdrawn and removed. ESOPHAGUS: The mucosa of the esophagus appeared normal. STOMACH: Two large non-bleeding, deep and irregular shaped ulcers, measuring 20 x 30mm in size, with heaped up edges, an adherent clot and a pigmented spot were found in the gastric body, on the lesser curvature of the stomach, and in the gastric antrum. DUODENUM: Two non-bleeding, shallow and clean-based ulcers ranging between 3-5 mm in size were found in the 1st part of the duodenum. ADVERSE EVENTS: There were no complications. IMPRESSIONS: 1. The esophagus appeared normal 2. Two large ulcers, measuring 20 x 30mm in size, were found in the gastric body, on the lesser curvature of the stomach, and in the gastric antrum 3. Two ulcers ranging between 3-5 mm in size were found in the 1st part of the duodenum 4. Retroflexed views revealed no abnormalities RECOMMENDATIONS: 1. Anti-reflux regimen 2. Continue PPI 3. If rebleeds needs IR consultation with L gastric artery embolization PATIENT CONDITION: stable DISPOSITION: Inpatient REPEAT EXAM: Return 1 month EGD Bailey Trevizo MD eSigned: Bailey Trevizo MD 03/19/2018 12:13 PM <Marivel Pandya - Last Filed: 04/05/18 11:55> - Labs CBC & Chem 7: 04/05/18 05:14 04/05/18 05:14 Laboratory Results - last 24 hr 04/05/18 04/05/18 04/05/18 00:05 05:14 05:14 WBC 6.6 RBC 3.01 L Hgb 9.4 L Hct 26.9 L MCV 89.3 MCH 31.3 MCHC 35.0 RDW 16.4 Plt Count 145 L MPV 6.4 L Sodium 136 Potassium 4.0 Chloride 103 Carbon Dioxide 26.8 Anion Gap 6 BUN 16 Creatinine 0.92 Estimated GFR 75 L POC Glucose 146 H Random Glucose 110 H Calcium 8.6 Total Bilirubin 0.4 AST 19 ALT 28 Alkaline Phosphatase 158 H Total Protein 6.9 Albumin 1.9 L 04/05/18 04/05/18 04/05/18 06:21 12:11 16:52 WBC RBC Hgb Hct MCV MCH MCHC RDW Plt Count MPV Sodium Potassium Chloride Carbon Dioxide Anion Gap BUN Creatinine Estimated GFR POC Glucose 115 H 126 H 174 H Random Glucose Calcium Total Bilirubin AST ALT Alkaline Phosphatase Total Protein Albumin <Yakov Soares - Last Filed: 04/05/18 21:33> Assessment and Plan - Plan Assessment: - Anemia S/P EGD x 3 since beginning of March EGD (Mar 17) The esophagus appeared normal. Large blood clot covering 2/3rds of the stomach. No active bleeding. Suctioned as much as possible. Large non-bleeding ulcer, ranging between 5- 9mm in size, was found in the duodenal bulb S/P APC with complete hemostasis. Retroflexed views revealed large blood clot EGD (Mar 19) Two large ulcers, measuring 20 x 30mm in size, were found in the gastric body, on the lesser curvature of the stomach, and in the gastric antrum. Two ulcers ranging between 3-5 mm in size were found in the 1st part of the duodenum EGD (Apr 04) Abnormal esophageal mucosa of unclear significance possible esophagitis. Gastric ulcer. Duodenal ulcers No visible vessel, no active bleeding Colonoscopy (August 2017) Normal exam, poor prep. (04/05) Some drop in H/H, no obvious bleeding. Plan: Diet as tolerated EGD biopsy pending Protonix BID Add Carafate Avoid NSAIDs Monitor H/H Transfuse as indicated If further drop, consider bleeding scan If anemia persists also would recommend capsule endoscopy outpatient Further recommendations based on course Pt has been seen and examined by myself and Dr. Soares and this note is written on his behalf <Marivel Pandya - Last Filed: 04/05/18 11:55> - Plan Patient seen and examined Agree with above Continue with current supportive care Monitor labs <Yakov Soares - Last Filed: 04/05/18 21:33>
--- NOTE | 2018-04-05 13:30 | P.PNIM ---
Subjective Interval history: Patient reports nausea today but no vomiting. Tolerated breakfast. Physical Exam Vital signs: Vital Signs 04/04/18 15:19 04/04/18 15:32 04/04/18 16:00 Temperature 99.4 F 99.4 F 99.4 F Pulse Rate 95 H 93 H 94 H Respiratory Rate 16 16 16 Blood Pressure 119/68 116/68 134/76 Pulse Oximetry 98 97 99 04/04/18 20:00 04/05/18 00:00 04/05/18 04:00 Temperature 99.2 F 99.3 F 98.5 F Pulse Rate 103 H 95 H 94 H Respiratory Rate 16 18 16 Blood Pressure 109/62 121/79 121/71 Pulse Oximetry 95 99 98 04/05/18 08:00 04/05/18 12:00 Temperature 99.0 F 98.3 F Pulse Rate 95 H 93 H Respiratory Rate 18 16 Blood Pressure 113/68 111/69 Pulse Oximetry 98 99 Intake & Output 04/04/18 04/05/18 04/05/18 18:59 06:59 18:59 Intake Total 1160 / 1160 250 / 250 Output Total 2007 1400 / 1400 Balance -848 / -848 -1150 / -1150 Intake: IV 250 / 250 Oral 960 / 960 Anesthesia Amount 200 / 200 Output: Urine 1000 / 1000 1400 / 1400 Stool 8 / 8 Urine Amount (Catheter) 1000 / 1000 PUREWIC 1000 / 1000 Other: # Voids 3 # Incontinent Voids 1 # Urine Diapers 2 Date of Last Bowel Movement 04/01/18 # Bowel Movements 2 # Incontinent Bowel Movements 2 Narrative: GENERAL: Elderly female, sitting comfortably in bed, in no acute distress CARDIOVASCULAR: Regular rate and rhythm without murmurs, gallops, or rubs. RESPIRATORY: Breath sounds equal bilaterally. No accessory muscle use. GASTROINTESTINAL: Abdomen soft, non-tender, nondistended. MUSCULOSKELETAL: No cyanosis, or edema. BACK: Nontender without obvious deformity. No CVA tenderness. NEURO: AAO x3, no focal deficits, speech is clear. - Urinary Catheter Management Straight Cath placed during this visit: yes, but has since been removed by the nurse Reason for continuing: Not indwelling catheter Insertion date: 03/16/18 Insertion time: 13:02 Removal date: 03/16/18 Removal time: 12:04 PUREWIC Cath placed during this visit: no Results - Labs CBC & Chem 7: 04/05/18 05:14 04/05/18 05:14 Laboratory Results - last 24 hr 04/04/18 04/05/18 04/05/18 16:57 00:05 05:14 WBC RBC Hgb Hct MCV MCH MCHC RDW Plt Count MPV Sodium 136 Potassium 4.0 Chloride 103 Carbon Dioxide 26.8 Anion Gap 6 BUN 16 Creatinine 0.92 Estimated GFR 75 L POC Glucose 94 146 H Random Glucose 110 H Calcium 8.6 Total Bilirubin 0.4 AST 19 ALT 28 Alkaline Phosphatase 158 H Total Protein 6.9 Albumin 1.9 L 04/05/18 04/05/18 04/05/18 05:14 06:21 12:11 WBC 6.6 RBC 3.01 L Hgb 9.4 L Hct 26.9 L MCV 89.3 MCH 31.3 MCHC 35.0 RDW 16.4 Plt Count 145 L MPV 6.4 L Sodium Potassium Chloride Carbon Dioxide Anion Gap BUN Creatinine Estimated GFR POC Glucose 115 H 126 H Random Glucose Calcium Total Bilirubin AST ALT Alkaline Phosphatase Total Protein Albumin - Procedures EGD PROCEDURE REPORT EXAM DATE: 03/17/2018 PATIENT NAME: Morgan Salmeron MR #: [id number] BIRTHDATE: 1955 ATTENDING: Bailey Trevizo MD ORDER #: [id number] SIEBEL ADMINISTRATOR: Kennedy Cabello and Keyanna Lubin STATUS: inpatient INDICATIONS: The patient is a 62 yr old female here for an EGD due to acute post hemorrhagic anemia and melena PROCEDURE PERFORMED: EGD w/ ablation MEDICATIONS: None and Per Anesthesia. TOPICAL ANESTHETIC: CONSENT: The patient understands the risks and benefits of the procedure and understands that these risks include, but are not limited to: sedation, allergic reaction, infection, perforation and/or bleeding. Alternative means of evaluation and treatment include, among others: physical exam, x-rays, and/or surgical intervention. The patient elects to proceed with this endoscopic procedure. medical equipment was checked for proper function. Hand hygiene and appropriate measures for infection prevention was taken. After the risks, benefits and alternatives of the procedure were thoroughly explained, Informed consent was verified, confirmed and timeout was successfully executed by the treatment team. The patient was anesthetized with topical anesthesia and the Pentax EG-2990i endoscope was introduced through the mouth and advanced to the first portion of the duodenum. Retroflexed views revealed large blood clot The gastroscope was then slowly withdrawn and removed. ESOPHAGUS: The mucosa of the esophagus appeared normal. STOMACH: Large blood clot covering 2/3rds of the stomach. No active bleeding. Suctioned as much as possible. DUODENUM: A large non-bleeding non-bleeding and shallow ulcer, ranging between 5-9mm in size, with surrounding edema, a pigmented spot and an adherent clot was found in the duodenal bulb. Argon plasma coagulation was applied to the site. With complete hemostasis achieved. ADVERSE EVENTS: There were no complications. IMPRESSIONS: 1. The esophagus appeared normal 2. Large blood clot covering 2/3rds of the stomach. No active bleeding. Suctioned as much as possible 3. Large non-bleeding ulcer, ranging between 5-9mm in size, was found in the duodenal bulb; Argon plasma coagulation was applied to the site; with complete hemostasis achieved 4. Retroflexed views revealed large blood clot RECOMMENDATIONS: 1. Continue PPI 2. Monitor in ICU, transfuse as needed. Clear liquid diet. IV reglan. REpeat egd tomorrow or monday depending upon clinical course. PATIENT CONDITION: stable DISPOSITION: Inpatient REPEAT EXAM: Return 1 day EGD Bailey Trevizo MD eSigned: Bailey Trevizo MD 03/17/2018 1:48 PM EGD PROCEDURE REPORT EXAM DATE: 03/19/2018 PATIENT NAME: Morgan Salmeron MR #: [id number] BIRTHDATE: 1955 ATTENDING: Bailey Trevizo MD ORDER #: [id number] SIEBEL ADMINISTRATOR: Alberto Padilla Pena, Gabriela, and Guillermina oPtter STATUS: inpatient INDICATIONS: The patient is a 62 yr old female here for an EGD due to acute post hemorrhagic anemia PROCEDURE PERFORMED: EGD, diagnostic MEDICATIONS: None and Per Anesthesia. TOPICAL ANESTHETIC: CONSENT: The patient understands the risks and benefits of the procedure and understands that these risks include, but are not limited to: sedation, allergic reaction, infection, perforation and/or bleeding. Alternative means of evaluation and treatment include, among others: physical exam, x-rays, and/or surgical intervention. The patient elects to proceed with this endoscopic procedure. medical equipment was checked for proper function. Hand hygiene and appropriate measures for infection prevention was taken. After the risks, benefits and alternatives of the procedure were thoroughly explained, Informed consent was verified, confirmed and timeout was successfully executed by the treatment team. The patient was anesthetized with topical anesthesia and the Pentax EG-2990i endoscope was introduced through the mouth and advanced to the second portion of the duodenum. Retroflexed views revealed no abnormalities The gastroscope was then slowly withdrawn and removed. ESOPHAGUS: The mucosa of the esophagus appeared normal. STOMACH: Two large non-bleeding, deep and irregular shaped ulcers, measuring 20 x 30mm in size, with heaped up edges, an adherent clot and a pigmented spot were found in the gastric body, on the lesser curvature of the stomach, and in the gastric antrum. DUODENUM: Two non-bleeding, shallow and clean-based ulcers ranging between 3-5 mm in size were found in the 1st part of the duodenum. ADVERSE EVENTS: There were no complications. IMPRESSIONS: 1. The esophagus appeared normal 2. Two large ulcers, measuring 20 x 30mm in size, were found in the gastric body, on the lesser curvature of the stomach, and in the gastric antrum 3. Two ulcers ranging between 3-5 mm in size were found in the 1st part of the duodenum 4. Retroflexed views revealed no abnormalities RECOMMENDATIONS: 1. Anti-reflux regimen 2. Continue PPI 3. If rebleeds needs IR consultation with L gastric artery embolization PATIENT CONDITION: stable DISPOSITION: Inpatient REPEAT EXAM: Return 1 month EGD Bailey Trevizo MD eSigned: Bailey Trevizo MD 03/19/2018 12:13 PM Assessment and Plan - Assessment (1) Abdominal pain Code(s): R10.9 - Unspecified abdominal pain Status: Resolved (2) Acute GI bleeding Code(s): K92.2 - Gastrointestinal hemorrhage, unspecified Status: Acute (3) Acute hypotension Code(s): I95.9 - Hypotension, unspecified Status: Acute (4) Upper GI bleed Code(s): K92.2 - Gastrointestinal hemorrhage, unspecified Status: Acute (5) Cervical cancer Code(s): C53.9 - Malignant neoplasm of cervix uteri, unspecified Status: Chronic (6) Diabetes Code(s): E11.9 - Type 2 diabetes mellitus without complications Status: Chronic (7) Chronic back pain Code(s): M54.9 - Dorsalgia, unspecified; G89.29 - Other chronic pain Status: Chronic (8) Hypertension Code(s): I10 - Essential (primary) hypertension Status: Chronic - Plan 63 y/o AAM with PMHx of DM and Metastatic Cervical Cancer admitted for inpatient management of upper GI bleed, now resolved, patient now pending placement 1. Anemia, acute blood loss Continued hemoglobin dropped to 7 on 04/03, s/p 2U of pRBC's, Hgb stable today Suspect repeat upper GI bleed, scheduled for EGD today, has been NPO since midnight s/p blood transfusion of 6U pRBC's previously this admission Continue PPI IV GI managing, appreciate assistance Follow-up CBC in AM Repeat EGD on 04/04 showed possible esophagitis, gastric and duodenal ulcers. No active bleeding. 2. Previous Upper GI bleed EGD on 03/19 showed large 2 x 3 cm ulcer, had planned for rpt EGD in 1mth Repeat EGD findings as noted above. Continue PPI Appreciate gastroenterology recommendations If continued bleeding, may consider bleeding scan. 3. Shingles, resolved s/p 7-day course of Valtrex and topical Acyclovir, stopped on 04/04 4. Metastatic Cervical Cancer Ongoing outpatient chemotherapy Pain control is adequate with Ofirmev and Oxy PRN 5. Type 2 Diabetes Mellitus Accu-Cheks with sliding scale insulin coverage Blood sugar stable Diabetic diet 6. DVT Prophylaxis: SCD's 7. Dispo: F/U EGD results Code Status: full Discharge Planning: No benefit for longterm facility placement. Daily physical therapy. (1) Abdominal pain Qualifiers: Abdominal location: generalized Qualified Code(s): R10.84 - Generalized abdominal pain (5) Cervical cancer Qualifiers: Malignant neoplasm of cervix location: unspecified location Qualified Code(s) : C53.9 - Malignant neoplasm of cervix uteri, unspecified
[2018-04-05] MEDS: Sucralfate 1 GM Tablet PO SCH ×2 (16:52→22:29)
[2018-04-06] MEDS: Insulin NovoLIN Regular Correctional Sugar Inj SQ SCH ×4 (00:54→17:34)
[2018-04-06 06:34] LABS: Hematocrit 26.3 % (35.0-46.0); Hemoglobin 9.3 gm/dL (11.6-15.3); Mean Corpuscular HGB Conc 35.2 % (32.0-36.0); Mean Platelet Volume 6.5 fL (7.0-11.0); Platelet Count 131 th/mm3 (150-450); Red Blood Count 2.89 mil/mm3 (4.00-5.30); Red Cell Distribution Width 16.5 % (11.6-17.2); White Blood Count 6.5 th/mm3 (4.0-11.0)
[2018-04-06 06:59] LABS: Calcium 8.4 mg/dL (8.5-10.1); Carbon Dioxide 26.1 meq/L (21.0-32.0); Potassium 3.8 meq/L (3.5-5.1)
[2018-04-06] MEDS: Sodium Chloride 0.9% 2 ML Flush BID IV.FLUSH SCH ×2 (09:14→21:39)
[2018-04-06] MEDS: Sucralfate 1 GM Tablet PO SCH ×4 (09:14→21:39)
[2018-04-06] MEDS: Acetaminophen 325 MG Tablet PO PRN (14:07)
--- NOTE | 2018-04-06 14:12 | P.PNIM ---
Subjective Interval history: Patient still reporting diffuse pain. Has difficulty working with physical therapy secondary to pain. Tolerating her diet. No reports of bloody stools Physical Exam Vital signs: Vital Signs 04/05/18 16:00 04/05/18 20:00 04/06/18 00:00 Temperature 98.4 F 98.8 F Pulse Rate 96 H 89 Respiratory Rate 20 18 18 Blood Pressure 102/61 117/74 118/69 Pulse Oximetry 98 97 97 04/06/18 04:00 04/06/18 08:00 04/06/18 12:00 Temperature 98.6 F 98.7 F 97.4 F L Pulse Rate 89 97 H 92 H Respiratory Rate 18 22 21 Blood Pressure 114/72 119/69 129/72 Pulse Oximetry 97 99 100 Intake & Output 04/05/18 04/06/18 04/06/18 18:59 06:59 18:59 Weight 64 kg Other: # Incontinent Voids 6 Date of Last Bowel Movement 04/05/18 # Incontinent Bowel Movements 1 Narrative: GENERAL: Elderly female, sitting comfortably in bed, in no acute distress CARDIOVASCULAR: Regular rate and rhythm without murmurs, gallops, or rubs. RESPIRATORY: Breath sounds equal bilaterally. No accessory muscle use. GASTROINTESTINAL: Abdomen soft, non-tender, nondistended. MUSCULOSKELETAL: No cyanosis, or edema. BACK: Nontender without obvious deformity. No CVA tenderness. NEURO: AAO x3, no focal deficits, speech is clear. - Urinary Catheter Management Straight Cath placed during this visit: yes, but has since been removed by the nurse Reason for continuing: Not indwelling catheter Insertion date: 03/16/18 Insertion time: 13:02 Removal date: 03/16/18 Removal time: 12:04 PUREWIC Cath placed during this visit: no Results - Labs CBC & Chem 7: 04/06/18 06:18 04/06/18 06:18 Laboratory Results - last 24 hr 04/05/18 04/05/18 04/06/18 16:52 22:27 06:08 WBC RBC Hgb Hct MCV MCH MCHC RDW Plt Count MPV Sodium Potassium Chloride Carbon Dioxide Anion Gap BUN Creatinine Estimated GFR POC Glucose 174 H 169 H 72 Random Glucose Calcium 04/06/18 04/06/18 04/06/18 06:13 06:18 06:18 WBC 6.5 RBC 2.89 L Hgb 9.3 L Hct 26.3 L MCV 91.0 MCH 32.0 MCHC 35.2 RDW 16.5 Plt Count 131 L MPV 6.5 L Sodium 137 Potassium 3.8 Chloride 103 Carbon Dioxide 26.1 Anion Gap 8 BUN 14 Creatinine 0.88 Estimated GFR 79 L POC Glucose 136 H Random Glucose 118 H Calcium 8.4 L 04/06/18 14:12 WBC RBC Hgb Hct MCV MCH MCHC RDW Plt Count MPV Sodium Potassium Chloride Carbon Dioxide Anion Gap BUN Creatinine Estimated GFR POC Glucose 235 H Random Glucose Calcium - Procedures EGD PROCEDURE REPORT EXAM DATE: 03/17/2018 PATIENT NAME: Morgan Salmeron MR #: [id number] BIRTHDATE: 1955 ATTENDING: Bailey Trevizo MD ORDER #: [id number] CANE BURNER: Kennedy Cabello and Keyanna Lubin STATUS: inpatient INDICATIONS: The patient is a 62 yr old female here for an EGD due to acute post hemorrhagic anemia and melena PROCEDURE PERFORMED: EGD w/ ablation MEDICATIONS: None and Per Anesthesia. TOPICAL ANESTHETIC: CONSENT: The patient understands the risks and benefits of the procedure and understands that these risks include, but are not limited to: sedation, allergic reaction, infection, perforation and/or bleeding. Alternative means of evaluation and treatment include, among others: physical exam, x-rays, and/or surgical intervention. The patient elects to proceed with this endoscopic procedure. medical equipment was checked for proper function. Hand hygiene and appropriate measures for infection prevention was taken. After the risks, benefits and alternatives of the procedure were thoroughly explained, Informed consent was verified, confirmed and timeout was successfully executed by the treatment team. The patient was anesthetized with topical anesthesia and the Pentax EG-2990i endoscope was introduced through the mouth and advanced to the first portion of the duodenum. Retroflexed views revealed large blood clot The gastroscope was then slowly withdrawn and removed. ESOPHAGUS: The mucosa of the esophagus appeared normal. STOMACH: Large blood clot covering 2/3rds of the stomach. No active bleeding. Suctioned as much as possible. DUODENUM: A large non-bleeding non-bleeding and shallow ulcer, ranging between 5-9mm in size, with surrounding edema, a pigmented spot and an adherent clot was found in the duodenal bulb. Argon plasma coagulation was applied to the site. With complete hemostasis achieved. ADVERSE EVENTS: There were no complications. IMPRESSIONS: 1. The esophagus appeared normal 2. Large blood clot covering 2/3rds of the stomach. No active bleeding. Suctioned as much as possible 3. Large non-bleeding ulcer, ranging between 5-9mm in size, was found in the duodenal bulb; Argon plasma coagulation was applied to the site; with complete hemostasis achieved 4. Retroflexed views revealed large blood clot RECOMMENDATIONS: 1. Continue PPI 2. Monitor in ICU, transfuse as needed. Clear liquid diet. IV reglan. REpeat egd tomorrow or monday depending upon clinical course. PATIENT CONDITION: stable DISPOSITION: Inpatient REPEAT EXAM: Return 1 day EGD Bailey Trevizo MD eSigned: Bailey Trevizo MD 03/17/2018 1:48 PM EGD PROCEDURE REPORT EXAM DATE: 03/19/2018 PATIENT NAME: Morgan Salmeron MR #: [id number] BIRTHDATE: 1955 ATTENDING: Bailey Trevizo MD ORDER #: [id number] CANE BURNER: Alberto Padilla Pena, Gabriela, and Guillermina Potter STATUS: inpatient INDICATIONS: The patient is a 62 yr old female here for an EGD due to acute post hemorrhagic anemia PROCEDURE PERFORMED: EGD, diagnostic MEDICATIONS: None and Per Anesthesia. TOPICAL ANESTHETIC: CONSENT: The patient understands the risks and benefits of the procedure and understands that these risks include, but are not limited to: sedation, allergic reaction, infection, perforation and/or bleeding. Alternative means of evaluation and treatment include, among others: physical exam, x-rays, and/or surgical intervention. The patient elects to proceed with this endoscopic procedure. medical equipment was checked for proper function. Hand hygiene and appropriate measures for infection prevention was taken. After the risks, benefits and alternatives of the procedure were thoroughly explained, Informed consent was verified, confirmed and timeout was successfully executed by the treatment team. The patient was anesthetized with topical anesthesia and the Pentax EG-2990i endoscope was introduced through the mouth and advanced to the second portion of the duodenum. Retroflexed views revealed no abnormalities The gastroscope was then slowly withdrawn and removed. ESOPHAGUS: The mucosa of the esophagus appeared normal. STOMACH: Two large non-bleeding, deep and irregular shaped ulcers, measuring 20 x 30mm in size, with heaped up edges, an adherent clot and a pigmented spot were found in the gastric body, on the lesser curvature of the stomach, and in the gastric antrum. DUODENUM: Two non-bleeding, shallow and clean-based ulcers ranging between 3-5 mm in size were found in the 1st part of the duodenum. ADVERSE EVENTS: There were no complications. IMPRESSIONS: 1. The esophagus appeared normal 2. Two large ulcers, measuring 20 x 30mm in size, were found in the gastric body, on the lesser curvature of the stomach, and in the gastric antrum 3. Two ulcers ranging between 3-5 mm in size were found in the 1st part of the duodenum 4. Retroflexed views revealed no abnormalities RECOMMENDATIONS: 1. Anti-reflux regimen 2. Continue PPI 3. If rebleeds needs IR consultation with L gastric artery embolization PATIENT CONDITION: stable DISPOSITION: Inpatient REPEAT EXAM: Return 1 month EGD Bailey Trevizo MD eSigned: Bailey Trevizo MD 03/19/2018 12:13 PM Assessment and Plan - Assessment (1) Abdominal pain Code(s): R10.9 - Unspecified abdominal pain Status: Resolved (2) Acute GI bleeding Code(s): K92.2 - Gastrointestinal hemorrhage, unspecified Status: Acute (3) Acute hypotension Code(s): I95.9 - Hypotension, unspecified Status: Acute (4) Upper GI bleed Code(s): K92.2 - Gastrointestinal hemorrhage, unspecified Status: Acute (5) Cervical cancer Code(s): C53.9 - Malignant neoplasm of cervix uteri, unspecified Status: Chronic (6) Diabetes Code(s): E11.9 - Type 2 diabetes mellitus without complications Status: Chronic (7) Chronic back pain Code(s): M54.9 - Dorsalgia, unspecified; G89.29 - Other chronic pain Status: Chronic (8) Hypertension Code(s): I10 - Essential (primary) hypertension Status: Chronic - Plan 63 y/o AAM with PMHx of DM and Metastatic Cervical Cancer admitted for inpatient management of upper GI bleed, now resolved, patient now pending placement 1. Anemia, acute blood loss s/p blood transfusion of 6U pRBC's previously this admission Continue PPI IV GI managing, appreciate assistance Follow-up CBC in AM Repeat EGD on 04/04 showed possible esophagitis, gastric and duodenal ulcers. No active bleeding. H&H stable 2. Previous Upper GI bleed EGD on 03/19 showed large 2 x 3 cm ulcer, had planned for rpt EGD in 1mth Repeat EGD findings as noted above. Continue PPI, Carafate Appreciate gastroenterology recommendations If continued bleeding, may consider bleeding scan. 3. Shingles, resolved s/p 7-day course of Valtrex and topical Acyclovir, stopped on 04/04 4. Metastatic Cervical Cancer Ongoing outpatient chemotherapy Pain not well controlled. Change [place] to Percocet. 5. Type 2 Diabetes Mellitus Accu-Cheks with sliding scale insulin coverage Blood sugar stable Diabetic diet 6. DVT Prophylaxis: SCD's 7. Dispo: F/U EGD results Code Status: full Discharge Planning: No benefit for residential facility placement. Daily physical therapy. (1) Abdominal pain Qualifiers: Abdominal location: generalized Qualified Code(s): R10.84 - Generalized abdominal pain (5) Cervical cancer Qualifiers: Malignant neoplasm of cervix location: unspecified location Qualified Code(s) : C53.9 - Malignant neoplasm of cervix uteri, unspecified
--- NOTE | 2018-04-06 16:12 | P.PNGI ---
Subjective Interval history: Patient resting comfortably on side. Reports intermittent abdominal pain, states tolerating diet well. Daughter reports small amount of blood on toilet tissue after patient had BM this morning. No further bleeding noted or reported <Jacquie Robertson - Last Filed: 04/06/18 16:06> Physical Exam Vital signs: Vital Signs 04/05/18 20:00 04/06/18 00:00 04/06/18 04:00 Temperature 98.8 F 98.6 F Pulse Rate 89 89 Respiratory Rate 18 18 18 Blood Pressure 117/74 118/69 114/72 Pulse Oximetry 97 97 97 04/06/18 08:00 04/06/18 12:00 Temperature 98.7 F 97.4 F L Pulse Rate 97 H 92 H Respiratory Rate 22 21 Blood Pressure 119/69 129/72 Pulse Oximetry 99 100 Intake & Output 04/05/18 04/06/18 04/06/18 18:59 06:59 18:59 Weight 64 kg Other: # Incontinent Voids 6 Date of Last Bowel Movement 04/05/18 # Incontinent Bowel Movements 1 - Constitutional no acute distress - Routine HEENT Exam Head: Present: normocephalic - Routine Respiratory Exam Present: CTA bilaterally. Absent: accessory muscle use - Routine Abdominal Exam Present: soft, normoactive bowel sounds. Absent: tenderness, guarding, firm - Routine Skin Exam Present: dry, warm - Routine Neurological Exam Present: alert - Routine Psychiatric Exam Present: normal affect, cooperative - Urinary Catheter Management Straight Cath placed during this visit: yes, but has since been removed by the nurse Reason for continuing: Not indwelling catheter Insertion date: 03/16/18 Insertion time: 13:02 Removal date: 03/16/18 Removal time: 12:04 PUREWIC Cath placed during this visit: no <Jacquie Robertson - Last Filed: 04/06/18 16:06> Vital signs: Vital Signs 04/06/18 00:00 04/06/18 04:00 04/06/18 08:00 Temperature 98.8 F 98.6 F 98.7 F Pulse Rate 89 89 97 H Respiratory Rate 18 18 22 Blood Pressure 118/69 114/72 119/69 Pulse Oximetry 97 97 99 04/06/18 12:00 04/06/18 16:00 Temperature 97.4 F L 99.0 F Pulse Rate 92 H 100 H Respiratory Rate 21 20 Blood Pressure 129/72 109/61 Pulse Oximetry 100 98 Intake & Output 04/06/18 04/06/18 04/07/18 06:59 18:59 06:59 Intake Total 460 / 460 Balance 460 / 460 Weight 64 kg Intake: Oral 460 / 460 Other: # Incontinent Voids 6 4 Date of Last Bowel Movement 04/05/18 # Incontinent Bowel Movements 1 4 - Urinary Catheter Management Straight Cath placed during this visit: no PUREWIC Cath placed during this visit: no <Yakov Soares E - Last Filed: 04/06/18 21:42> Results - Labs CBC & Chem 7: 04/06/18 06:18 04/06/18 06:18 Laboratory Results - last 24 hr 04/05/18 04/05/18 04/06/18 16:52 22:27 06:08 WBC RBC Hgb Hct MCV MCH MCHC RDW Plt Count MPV Sodium Potassium Chloride Carbon Dioxide Anion Gap BUN Creatinine Estimated GFR POC Glucose 174 H 169 H 72 Random Glucose Calcium 04/06/18 04/06/18 04/06/18 06:13 06:18 06:18 WBC 6.5 RBC 2.89 L Hgb 9.3 L Hct 26.3 L MCV 91.0 MCH 32.0 MCHC 35.2 RDW 16.5 Plt Count 131 L MPV 6.5 L Sodium 137 Potassium 3.8 Chloride 103 Carbon Dioxide 26.1 Anion Gap 8 BUN 14 Creatinine 0.88 Estimated GFR 79 L POC Glucose 136 H Random Glucose 118 H Calcium 8.4 L 04/06/18 14:12 WBC RBC Hgb Hct MCV MCH MCHC RDW Plt Count MPV Sodium Potassium Chloride Carbon Dioxide Anion Gap BUN Creatinine Estimated GFR POC Glucose 235 H Random Glucose Calcium - Procedures EGD PROCEDURE REPORT EXAM DATE: 03/17/2018 PATIENT NAME: Morgan Salmeron MR #: [id number] BIRTHDATE: 1955 ATTENDING: Bailey Trevizo MD ORDER #: [id number] ART OBJECTS SALESPERSON: Kennedy Cabello and Keyanna Lubin STATUS: inpatient INDICATIONS: The patient is a 62 yr old female here for an EGD due to acute post hemorrhagic anemia and melena PROCEDURE PERFORMED: EGD w/ ablation MEDICATIONS: None and Per Anesthesia. TOPICAL ANESTHETIC: CONSENT: The patient understands the risks and benefits of the procedure and understands that these risks include, but are not limited to: sedation, allergic reaction, infection, perforation and/or bleeding. Alternative means of evaluation and treatment include, among others: physical exam, x-rays, and/or surgical intervention. The patient elects to proceed with this endoscopic procedure. medical equipment was checked for proper function. Hand hygiene and appropriate measures for infection prevention was taken. After the risks, benefits and alternatives of the procedure were thoroughly explained, Informed consent was verified, confirmed and timeout was successfully executed by the treatment team. The patient was anesthetized with topical anesthesia and the Kahub EG-2990i endoscope was introduced through the mouth and advanced to the first portion of the duodenum. Retroflexed views revealed large blood clot The gastroscope was then slowly withdrawn and removed. ESOPHAGUS: The mucosa of the esophagus appeared normal. STOMACH: Large blood clot covering 2/3rds of the stomach. No active bleeding. Suctioned as much as possible. DUODENUM: A large non-bleeding non-bleeding and shallow ulcer, ranging between 5-9mm in size, with surrounding edema, a pigmented spot and an adherent clot was found in the duodenal bulb. Argon plasma coagulation was applied to the site. With complete hemostasis achieved. ADVERSE EVENTS: There were no complications. IMPRESSIONS: 1. The esophagus appeared normal 2. Large blood clot covering 2/3rds of the stomach. No active bleeding. Suctioned as much as possible 3. Large non-bleeding ulcer, ranging between 5-9mm in size, was found in the duodenal bulb; Argon plasma coagulation was applied to the site; with complete hemostasis achieved 4. Retroflexed views revealed large blood clot RECOMMENDATIONS: 1. Continue PPI 2. Monitor in ICU, transfuse as needed. Clear liquid diet. IV reglan. REpeat egd tomorrow or monday depending upon clinical course. PATIENT CONDITION: stable DISPOSITION: Inpatient REPEAT EXAM: Return 1 day EGD Bailey Trevizo MD eSigned: Bailey Trevizo MD 03/17/2018 1:48 PM EGD PROCEDURE REPORT EXAM DATE: 03/19/2018 PATIENT NAME: Morgan Salmreon MR #: [id number] BIRTHDATE: 1955 ATTENDING: Bailey Trevizo MD ORDER #: [id number] ART OBJECTS SALESPERSON: Alberto Padilla Pena, Gabriela, and Guillermina Potter STATUS: inpatient INDICATIONS: The patient is a 62 yr old female here for an EGD due to acute post hemorrhagic anemia PROCEDURE PERFORMED: EGD, diagnostic MEDICATIONS: None and Per Anesthesia. TOPICAL ANESTHETIC: CONSENT: The patient understands the risks and benefits of the procedure and understands that these risks include, but are not limited to: sedation, allergic reaction, infection, perforation and/or bleeding. Alternative means of evaluation and treatment include, among others: physical exam, x-rays, and/or surgical intervention. The patient elects to proceed with this endoscopic procedure. medical equipment was checked for proper function. Hand hygiene and appropriate measures for infection prevention was taken. After the risks, benefits and alternatives of the procedure were thoroughly explained, Informed consent was verified, confirmed and timeout was successfully executed by the treatment team. The patient was anesthetized with topical anesthesia and the Pentax EG-2990i endoscope was introduced through the mouth and advanced to the second portion of the duodenum. Retroflexed views revealed no abnormalities The gastroscope was then slowly withdrawn and removed. ESOPHAGUS: The mucosa of the esophagus appeared normal. STOMACH: Two large non-bleeding, deep and irregular shaped ulcers, measuring 20 x 30mm in size, with heaped up edges, an adherent clot and a pigmented spot were found in the gastric body, on the lesser curvature of the stomach, and in the gastric antrum. DUODENUM: Two non-bleeding, shallow and clean-based ulcers ranging between 3-5 mm in size were found in the 1st part of the duodenum. ADVERSE EVENTS: There were no complications. IMPRESSIONS: 1. The esophagus appeared normal 2. Two large ulcers, measuring 20 x 30mm in size, were found in the gastric body, on the lesser curvature of the stomach, and in the gastric antrum 3. Two ulcers ranging between 3-5 mm in size were found in the 1st part of the duodenum 4. Retroflexed views revealed no abnormalities RECOMMENDATIONS: 1. Anti-reflux regimen 2. Continue PPI 3. If rebleeds needs IR consultation with L gastric artery embolization PATIENT CONDITION: stable DISPOSITION: Inpatient REPEAT EXAM: Return 1 month EGD Bailey Trevizo MD eSigned: Bailey Trevizo MD 03/19/2018 12:13 PM <Jacquie Robertson - Last Filed: 04/06/18 16:06> - Labs CBC & Chem 7: 04/06/18 06:18 04/06/18 06:18 Laboratory Results - last 24 hr 04/05/18 04/06/18 04/06/18 22:27 06:08 06:13 WBC RBC Hgb Hct MCV MCH MCHC RDW Plt Count MPV Sodium Potassium Chloride Carbon Dioxide Anion Gap BUN Creatinine Estimated GFR POC Glucose 169 H 72 136 H Random Glucose Calcium 04/06/18 04/06/18 04/06/18 06:18 06:18 14:12 WBC 6.5 RBC 2.89 L Hgb 9.3 L Hct 26.3 L MCV 91.0 MCH 32.0 MCHC 35.2 RDW 16.5 Plt Count 131 L MPV 6.5 L Sodium 137 Potassium 3.8 Chloride 103 Carbon Dioxide 26.1 Anion Gap 8 BUN 14 Creatinine 0.88 Estimated GFR 79 L POC Glucose 235 H Random Glucose 118 H Calcium 8.4 L 04/06/18 17:09 WBC RBC Hgb Hct MCV MCH MCHC RDW Plt Count MPV Sodium Potassium Chloride Carbon Dioxide Anion Gap BUN Creatinine Estimated GFR POC Glucose 149 H Random Glucose Calcium <Yakov Soares - Last Filed: 04/06/18 21:42> Assessment and Plan - Plan 04/06/2018 Anemia Post EGD on 04/04/2018 -esophagitis, gastric ulcer, duodenal ulcers Patient's daughter reported small amount of blood noted on toilet tissue this a.m. after BM. No further bleeding Hemoglobin 9.3 hematocrit 26.3 stable platelet count 131 Plan -Diet as tolerated -Acid reflux precautions -Await EGD biopsies -Avoid NSAIDs -Continue Carafate and PPI -Monitor H&H -Monitor for bleeding -Transfuse if needed -Supportive care -Further recommendations to follow This patient has been seen by myself and Dr. Soares and this note is written on his behalf - Attending Attestation Dr. Soares <Jacquie Robertson - Last Filed: 04/06/18 16:06> - Plan Patient seen and examined Agree with above history and physical Monitor labs Continue with current supportive care Patient to follow-up with GI post discharge Not much to add at this point in time from a GI perspective we will sign off <Yakov Soares - Last Filed: 04/06/18 21:42>
[2018-04-07] MEDS: Insulin NovoLIN Regular Correctional Sugar Inj SQ SCH ×4 (02:49→18:30)
[2018-04-07 05:45] LABS: Hematocrit 26.5 % (35.0-46.0); Mean Corpuscular HGB Conc 34.1 % (32.0-36.0); Mean Corpuscular Hemoglobin 31.9 pg (27.0-34.0); Mean Corpuscular Volume 93.5 fL (80.0-100.0); Mean Platelet Volume 6.7 fL (7.0-11.0); Platelet Count 117 th/mm3 (150-450); Red Blood Count 2.83 mil/mm3 (4.00-5.30); Red Cell Distribution Width 16.1 % (11.6-17.2); White Blood Count 5.6 th/mm3 (4.0-11.0)
[2018-04-07 06:07] LABS: Calcium 8.4 mg/dL (8.5-10.1); Carbon Dioxide 27.1 meq/L (21.0-32.0); Potassium 3.6 meq/L (3.5-5.1)
[2018-04-07] MEDS: Sucralfate 1 GM Tablet PO SCH ×4 (09:19→21:20)
[2018-04-07] MEDS: Sodium Chloride 0.9% 2 ML Flush BID IV.FLUSH SCH ×2 (09:20→21:21)
--- NOTE | 2018-04-07 14:39 | P.PNIM ---
Subjective Interval history: Patient reports she is doing okay today. Pain is controlled. Physical Exam Vital signs: Vital Signs 04/06/18 16:00 04/06/18 20:00 04/07/18 00:00 Temperature 99.0 F 97.8 F 99.4 F Pulse Rate 100 H 96 H 93 H Respiratory Rate 20 18 18 Blood Pressure 109/61 98/57 L 115/66 Pulse Oximetry 98 97 100 04/07/18 04:00 04/07/18 08:00 04/07/18 12:00 Temperature 99.8 F H 100.1 F H 99.7 F H Pulse Rate 101 H 99 H 103 H Respiratory Rate 16 20 20 Blood Pressure 103/66 104/64 130/73 Pulse Oximetry 97 98 98 Intake & Output 04/06/18 04/07/18 04/07/18 18:59 06:59 18:59 Intake Total 460 / 460 300 / 300 Balance 460 / 460 300 / 300 Weight 64 kg Intake: Oral 460 / 460 300 / 300 Other: # Incontinent Voids 4 2 Date of Last Bowel Movement 04/05/18 04/05/18 # Incontinent Bowel Movements 4 1 Narrative: GENERAL: Elderly female, sitting comfortably in bed, in no acute distress CARDIOVASCULAR: Regular rate and rhythm without murmurs, gallops, or rubs. RESPIRATORY: Breath sounds equal bilaterally. No accessory muscle use. GASTROINTESTINAL: Abdomen soft, non-tender, nondistended. MUSCULOSKELETAL: No cyanosis, or edema. NEURO: AAO x3, no focal deficits, speech is clear. - Urinary Catheter Management Straight Cath placed during this visit: yes, but has since been removed by the nurse Reason for continuing: Not indwelling catheter Insertion date: 03/16/18 Insertion time: 13:02 Removal date: 03/16/18 Removal time: 12:04 PUREWIC Cath placed during this visit: no Results - Labs CBC & Chem 7: 04/07/18 04:50 04/07/18 04:50 Laboratory Results - last 24 hr 04/06/18 04/07/18 04/07/18 17:09 00:36 04:50 WBC 5.6 RBC 2.83 L Hgb 9.0 L Hct 26.5 L MCV 93.5 MCH 31.9 MCHC 34.1 RDW 16.1 Plt Count 117 L MPV 6.7 L Sodium Potassium Chloride Carbon Dioxide Anion Gap BUN Creatinine Estimated GFR POC Glucose 149 H 131 H Random Glucose Calcium 04/07/18 04/07/18 04/07/18 04:50 05:01 12:47 WBC RBC Hgb Hct MCV MCH MCHC RDW Plt Count MPV Sodium 137 Potassium 3.6 Chloride 103 Carbon Dioxide 27.1 Anion Gap 7 BUN 15 Creatinine 0.89 Estimated GFR 78 L POC Glucose 119 H 210 H Random Glucose 106 Calcium 8.4 L - Procedures EGD PROCEDURE REPORT EXAM DATE: 03/17/2018 PATIENT NAME: Morgan Salmeron MR #: [id number] BIRTHDATE: 1955 ATTENDING: Bailey Trevizo MD ORDER #: [id number] TECHNICAL PROGRAM MANAGER: Kennedy Cabello and Keyanna Lubin STATUS: inpatient INDICATIONS: The patient is a 62 yr old female here for an EGD due to acute post hemorrhagic anemia and melena PROCEDURE PERFORMED: EGD w/ ablation MEDICATIONS: None and Per Anesthesia. TOPICAL ANESTHETIC: CONSENT: The patient understands the risks and benefits of the procedure and understands that these risks include, but are not limited to: sedation, allergic reaction, infection, perforation and/or bleeding. Alternative means of evaluation and treatment include, among others: physical exam, x-rays, and/or surgical intervention. The patient elects to proceed with this endoscopic procedure. medical equipment was checked for proper function. Hand hygiene and appropriate measures for infection prevention was taken. After the risks, benefits and alternatives of the procedure were thoroughly explained, Informed consent was verified, confirmed and timeout was successfully executed by the treatment team. The patient was anesthetized with topical anesthesia and the Pentax EG-2990i endoscope was introduced through the mouth and advanced to the first portion of the duodenum. Retroflexed views revealed large blood clot The gastroscope was then slowly withdrawn and removed. ESOPHAGUS: The mucosa of the esophagus appeared normal. STOMACH: Large blood clot covering 2/3rds of the stomach. No active bleeding. Suctioned as much as possible. DUODENUM: A large non-bleeding non-bleeding and shallow ulcer, ranging between 5-9mm in size, with surrounding edema, a pigmented spot and an adherent clot was found in the duodenal bulb. Argon plasma coagulation was applied to the site. With complete hemostasis achieved. ADVERSE EVENTS: There were no complications. IMPRESSIONS: 1. The esophagus appeared normal 2. Large blood clot covering 2/3rds of the stomach. No active bleeding. Suctioned as much as possible 3. Large non-bleeding ulcer, ranging between 5-9mm in size, was found in the duodenal bulb; Argon plasma coagulation was applied to the site; with complete hemostasis achieved 4. Retroflexed views revealed large blood clot RECOMMENDATIONS: 1. Continue PPI 2. Monitor in ICU, transfuse as needed. Clear liquid diet. IV reglan. REpeat egd tomorrow or monday depending upon clinical course. PATIENT CONDITION: stable DISPOSITION: Inpatient REPEAT EXAM: Return 1 day EGD Bailey Trevizo MD eSigned: Bailey Trevizo MD 03/17/2018 1:48 PM EGD PROCEDURE REPORT EXAM DATE: 03/19/2018 PATIENT NAME: Morgan Salmeron MR #: [id number] BIRTHDATE: 1955 ATTENDING: Bailey Trevizo MD ORDER #: [id number] TECHNICAL PROGRAM MANAGER: Alberto Padilla Pena, Gabriela, and Guillermina Potter STATUS: inpatient INDICATIONS: The patient is a 62 yr old female here for an EGD due to acute post hemorrhagic anemia PROCEDURE PERFORMED: EGD, diagnostic MEDICATIONS: None and Per Anesthesia. TOPICAL ANESTHETIC: CONSENT: The patient understands the risks and benefits of the procedure and understands that these risks include, but are not limited to: sedation, allergic reaction, infection, perforation and/or bleeding. Alternative means of evaluation and treatment include, among others: physical exam, x-rays, and/or surgical intervention. The patient elects to proceed with this endoscopic procedure. medical equipment was checked for proper function. Hand hygiene and appropriate measures for infection prevention was taken. After the risks, benefits and alternatives of the procedure were thoroughly explained, Informed consent was verified, confirmed and timeout was successfully executed by the treatment team. The patient was anesthetized with topical anesthesia and the Pentax EG-2990i endoscope was introduced through the mouth and advanced to the second portion of the duodenum. Retroflexed views revealed no abnormalities The gastroscope was then slowly withdrawn and removed. ESOPHAGUS: The mucosa of the esophagus appeared normal. STOMACH: Two large non-bleeding, deep and irregular shaped ulcers, measuring 20 x 30mm in size, with heaped up edges, an adherent clot and a pigmented spot were found in the gastric body, on the lesser curvature of the stomach, and in the gastric antrum. DUODENUM: Two non-bleeding, shallow and clean-based ulcers ranging between 3-5 mm in size were found in the 1st part of the duodenum. ADVERSE EVENTS: There were no complications. IMPRESSIONS: 1. The esophagus appeared normal 2. Two large ulcers, measuring 20 x 30mm in size, were found in the gastric body, on the lesser curvature of the stomach, and in the gastric antrum 3. Two ulcers ranging between 3-5 mm in size were found in the 1st part of the duodenum 4. Retroflexed views revealed no abnormalities RECOMMENDATIONS: 1. Anti-reflux regimen 2. Continue PPI 3. If rebleeds needs IR consultation with L gastric artery embolization PATIENT CONDITION: stable DISPOSITION: Inpatient REPEAT EXAM: Return 1 month EGD Bailey Trevizo MD eSigned: Bailey Trevizo MD 03/19/2018 12:13 PM Assessment and Plan - Assessment (1) Abdominal pain Code(s): R10.9 - Unspecified abdominal pain Status: Resolved (2) Acute GI bleeding Code(s): K92.2 - Gastrointestinal hemorrhage, unspecified Status: Acute (3) Acute hypotension Code(s): I95.9 - Hypotension, unspecified Status: Acute (4) Upper GI bleed Code(s): K92.2 - Gastrointestinal hemorrhage, unspecified Status: Acute (5) Cervical cancer Code(s): C53.9 - Malignant neoplasm of cervix uteri, unspecified Status: Chronic (6) Diabetes Code(s): E11.9 - Type 2 diabetes mellitus without complications Status: Chronic (7) Chronic back pain Code(s): M54.9 - Dorsalgia, unspecified; G89.29 - Other chronic pain Status: Chronic (8) Hypertension Code(s): I10 - Essential (primary) hypertension Status: Chronic - Plan 63 y/o AAM with PMHx of DM and Metastatic Cervical Cancer admitted for inpatient management of upper GI bleed, now resolved, patient now pending placement 1. Anemia, acute blood loss s/p blood transfusion of 6U pRBC's previously this admission Continue PPI IV GI managing, appreciate assistance Follow-up CBC in AM Repeat EGD on 04/04 showed possible esophagitis, gastric and duodenal ulcers. No active bleeding. H&H stable 2. Previous Upper GI bleed EGD on 03/19 showed large 2 x 3 cm ulcer, had planned for rpt EGD in 1mth Repeat EGD findings as noted above. Continue PPI, Carafate Appreciate gastroenterology recommendations If continued bleeding, may consider bleeding scan. 3. Shingles, resolved s/p 7-day course of Valtrex and topical Acyclovir, stopped on 04/04 4. Metastatic Cervical Cancer Patient to continue outpatient chemotherapy when ready. Pain better controlled with Percocet. 5. Type 2 Diabetes Mellitus Accu-Cheks with sliding scale insulin coverage Blood sugar stable Diabetic diet 6. DVT Prophylaxis: SCD's 7. Dispo: F/U EGD results Code Status: full Discharge Planning: No benefit for prison facility placement. Daily physical therapy. (1) Abdominal pain Qualifiers: Abdominal location: generalized Qualified Code(s): R10.84 - Generalized abdominal pain (5) Cervical cancer Qualifiers: Malignant neoplasm of cervix location: unspecified location Qualified Code(s) : C53.9 - Malignant neoplasm of cervix uteri, unspecified
[2018-04-08] MEDS: Insulin NovoLIN Regular Correctional Sugar Inj SQ SCH ×5 (01:34→23:19)
[2018-04-08 07:03] LABS: Hematocrit 24.6 % (35.0-46.0); Hemoglobin 8.7 gm/dL (11.6-15.3); Mean Corpuscular HGB Conc 35.5 % (32.0-36.0); Mean Corpuscular Hemoglobin 32.1 pg (27.0-34.0); Mean Corpuscular Volume 90.5 fL (80.0-100.0); Mean Platelet Volume 6.8 fL (7.0-11.0); Platelet Count 116 th/mm3 (150-450); Red Blood Count 2.72 mil/mm3 (4.00-5.30); Red Cell Distribution Width 16.3 % (11.6-17.2); White Blood Count 6.3 th/mm3 (4.0-11.0)
[2018-04-08 07:19] LABS: Calcium 8.1 mg/dL (8.5-10.1); Carbon Dioxide 27.3 meq/L (21.0-32.0); Potassium 3.8 meq/L (3.5-5.1)
[2018-04-08] MEDS: Sucralfate 1 GM Tablet PO SCH ×4 (08:49→22:42)
[2018-04-08] MEDS: Sodium Chloride 0.9% 2 ML Flush BID IV.FLUSH SCH ×2 (08:49→22:42)
--- NOTE | 2018-04-08 12:57 | P.PNIM ---
Subjective Interval history: Patient reports persistent pain at the site of shingle lesions. No other issues. Physical Exam Vital signs: Vital Signs 04/07/18 16:00 04/07/18 20:00 04/08/18 00:00 Temperature 101.2 F H 98 F 98.6 F Pulse Rate 107 H 101 H 87 Respiratory Rate 20 20 20 Blood Pressure 94/59 L 113/66 97/63 L Pulse Oximetry 97 98 96 04/08/18 04:00 04/08/18 08:00 Temperature 99 F 100.2 F H Pulse Rate 96 H 91 H Respiratory Rate 20 20 Blood Pressure 97/55 L 110/68 Pulse Oximetry 97 96 Intake & Output 04/07/18 04/08/18 04/08/18 18:59 06:59 18:59 Intake Total 0 / 0 Balance 0 / 0 Intake: Oral 0 / 0 Other: # Voids 2 # Incontinent Voids 1 Date of Last Bowel Movement 04/07/18 04/07/18 # Bowel Movements 2 Narrative: GENERAL: Elderly female, sitting comfortably in bed, in no acute distress SKIN: Left upper chest and back with healing shingle lesion. CARDIOVASCULAR: Regular rate and rhythm without murmurs, gallops, or rubs. RESPIRATORY: Breath sounds equal bilaterally. No accessory muscle use. GASTROINTESTINAL: Abdomen soft, non-tender, nondistended. MUSCULOSKELETAL: No cyanosis, or edema. NEURO: AAO x3, no focal deficits, speech is clear. - Urinary Catheter Management Straight Cath placed during this visit: yes, but has since been removed by the nurse Reason for continuing: Not indwelling catheter Insertion date: 03/16/18 Insertion time: 13:02 Removal date: 03/16/18 Removal time: 12:04 PUREWIC Cath placed during this visit: no Results - Labs CBC & Chem 7: 04/08/18 06:30 04/08/18 06:30 Laboratory Results - last 24 hr 04/07/18 04/08/18 04/08/18 17:28 00:55 06:24 WBC RBC Hgb Hct MCV MCH MCHC RDW Plt Count MPV Sodium Potassium Chloride Carbon Dioxide Anion Gap BUN Creatinine Estimated GFR POC Glucose 125 H 134 H 72 Random Glucose Calcium 04/08/18 04/08/18 04/08/18 06:30 06:30 06:31 WBC 6.3 RBC 2.72 L Hgb 8.7 L Hct 24.6 L MCV 90.5 MCH 32.1 MCHC 35.5 RDW 16.3 Plt Count 116 L MPV 6.8 L Sodium 138 Potassium 3.8 Chloride 104 Carbon Dioxide 27.3 Anion Gap 7 BUN 14 Creatinine 0.87 Estimated GFR 80 L POC Glucose 120 H Random Glucose 104 Calcium 8.1 L 04/08/18 12:36 WBC RBC Hgb Hct MCV MCH MCHC RDW Plt Count MPV Sodium Potassium Chloride Carbon Dioxide Anion Gap BUN Creatinine Estimated GFR POC Glucose 166 H Random Glucose Calcium Microbiology 04/08/18 01:20 Stool Stool Occult Blood (BREN) - Final Hemoccult positive - Procedures EGD PROCEDURE REPORT EXAM DATE: 03/17/2018 PATIENT NAME: Morgan Salmeron MR #: [id number] BIRTHDATE: 1955 ATTENDING: Bailey Trevizo MD ORDER #: [id number] INSURANCE AGENCY OWNER: Kennedy Cabello and Keyanna Lubin STATUS: inpatient INDICATIONS: The patient is a 62 yr old female here for an EGD due to acute post hemorrhagic anemia and melena PROCEDURE PERFORMED: EGD w/ ablation MEDICATIONS: None and Per Anesthesia. TOPICAL ANESTHETIC: CONSENT: The patient understands the risks and benefits of the procedure and understands that these risks include, but are not limited to: sedation, allergic reaction, infection, perforation and/or bleeding. Alternative means of evaluation and treatment include, among others: physical exam, x-rays, and/or surgical intervention. The patient elects to proceed with this endoscopic procedure. medical equipment was checked for proper function. Hand hygiene and appropriate measures for infection prevention was taken. After the risks, benefits and alternatives of the procedure were thoroughly explained, Informed consent was verified, confirmed and timeout was successfully executed by the treatment team. The patient was anesthetized with topical anesthesia and the Pentax EG-2990i endoscope was introduced through the mouth and advanced to the first portion of the duodenum. Retroflexed views revealed large blood clot The gastroscope was then slowly withdrawn and removed. ESOPHAGUS: The mucosa of the esophagus appeared normal. STOMACH: Large blood clot covering 2/3rds of the stomach. No active bleeding. Suctioned as much as possible. DUODENUM: A large non-bleeding non-bleeding and shallow ulcer, ranging between 5-9mm in size, with surrounding edema, a pigmented spot and an adherent clot was found in the duodenal bulb. Argon plasma coagulation was applied to the site. With complete hemostasis achieved. ADVERSE EVENTS: There were no complications. IMPRESSIONS: 1. The esophagus appeared normal 2. Large blood clot covering 2/3rds of the stomach. No active bleeding. Suctioned as much as possible 3. Large non-bleeding ulcer, ranging between 5-9mm in size, was found in the duodenal bulb; Argon plasma coagulation was applied to the site; with complete hemostasis achieved 4. Retroflexed views revealed large blood clot RECOMMENDATIONS: 1. Continue PPI 2. Monitor in ICU, transfuse as needed. Clear liquid diet. IV reglan. REpeat egd tomorrow or monday depending upon clinical course. PATIENT CONDITION: stable DISPOSITION: Inpatient REPEAT EXAM: Return 1 day EGD Bailey Trevizo MD eSigned: Bailey Trevizo MD 03/17/2018 1:48 PM EGD PROCEDURE REPORT EXAM DATE: 03/19/2018 PATIENT NAME: Morgan Salmeron MR #: [id number] BIRTHDATE: 1955 ATTENDING: Bailey Trevizo MD ORDER #: [id number] INSURANCE AGENCY OWNER: Alberto Padilla Pena, Gabriela, and Guillermina Potter STATUS: inpatient INDICATIONS: The patient is a 62 yr old female here for an EGD due to acute post hemorrhagic anemia PROCEDURE PERFORMED: EGD, diagnostic MEDICATIONS: None and Per Anesthesia. TOPICAL ANESTHETIC: CONSENT: The patient understands the risks and benefits of the procedure and understands that these risks include, but are not limited to: sedation, allergic reaction, infection, perforation and/or bleeding. Alternative means of evaluation and treatment include, among others: physical exam, x-rays, and/or surgical intervention. The patient elects to proceed with this endoscopic procedure. medical equipment was checked for proper function. Hand hygiene and appropriate measures for infection prevention was taken. After the risks, benefits and alternatives of the procedure were thoroughly explained, Informed consent was verified, confirmed and timeout was successfully executed by the treatment team. The patient was anesthetized with topical anesthesia and the Pentax EG-[id number] endoscope was introduced through the mouth and advanced to the second portion of the duodenum. Retroflexed views revealed no abnormalities The gastroscope was then slowly withdrawn and removed. ESOPHAGUS: The mucosa of the esophagus appeared normal. STOMACH: Two large non-bleeding, deep and irregular shaped ulcers, measuring 20 x 30mm in size, with heaped up edges, an adherent clot and a pigmented spot were found in the gastric body, on the lesser curvature of the stomach, and in the gastric antrum. DUODENUM: Two non-bleeding, shallow and clean-based ulcers ranging between 3-5 mm in size were found in the 1st part of the duodenum. ADVERSE EVENTS: There were no complications. IMPRESSIONS: 1. The esophagus appeared normal 2. Two large ulcers, measuring 20 x 30mm in size, were found in the gastric body, on the lesser curvature of the stomach, and in the gastric antrum 3. Two ulcers ranging between 3-5 mm in size were found in the 1st part of the duodenum 4. Retroflexed views revealed no abnormalities RECOMMENDATIONS: 1. Anti-reflux regimen 2. Continue PPI 3. If rebleeds needs IR consultation with L gastric artery embolization PATIENT CONDITION: stable DISPOSITION: Inpatient REPEAT EXAM: Return 1 month EGD Bailey Trevizo MD eSigned: Bailey Trevizo MD 03/19/2018 12:13 PM Assessment and Plan - Assessment (1) Abdominal pain Code(s): R10.9 - Unspecified abdominal pain Status: Resolved (2) Acute GI bleeding Code(s): K92.2 - Gastrointestinal hemorrhage, unspecified Status: Acute (3) Acute hypotension Code(s): I95.9 - Hypotension, unspecified Status: Acute (4) Upper GI bleed Code(s): K92.2 - Gastrointestinal hemorrhage, unspecified Status: Acute (5) Cervical cancer Code(s): C53.9 - Malignant neoplasm of cervix uteri, unspecified Status: Chronic (6) Diabetes Code(s): E11.9 - Type 2 diabetes mellitus without complications Status: Chronic (7) Chronic back pain Code(s): M54.9 - Dorsalgia, unspecified; G89.29 - Other chronic pain Status: Chronic (8) Hypertension Code(s): I10 - Essential (primary) hypertension Status: Chronic - Plan 63 y/o AAM with PMHx of DM and Metastatic Cervical Cancer admitted for inpatient management of upper GI bleed, now resolved, patient now pending placement 1. Anemia, acute blood loss s/p blood transfusion of 6U pRBC's previously this admission Continue PPI IV GI managing, appreciate assistance Follow-up CBC in AM Repeat EGD on 04/04 showed possible esophagitis, gastric and duodenal ulcers. No active bleeding. H&H stable 2. Previous Upper GI bleed EGD on 03/19 showed large 2 x 3 cm ulcer, had planned for rpt EGD in 1mth Repeat EGD findings as noted above. Continue PPI, Carafate Appreciate gastroenterology recommendations If continued bleeding, may consider bleeding scan. 3. Shingles, resolved s/p 7-day course of Valtrex and topical Acyclovir, stopped on 04/04 Patient is having postherpetic neuralgia. Start Gabapentin. Continue Percocet as needed. 4. Metastatic Cervical Cancer Patient to continue outpatient chemotherapy when ready. Pain better controlled with Percocet. 5. Type 2 Diabetes Mellitus Accu-Cheks with sliding scale insulin coverage Blood sugar stable Diabetic diet 6. DVT Prophylaxis: SCD's 7. Dispo: F/U EGD results Code Status: full Discharge Planning: No benefit for care home facility placement. Daily physical therapy. (1) Abdominal pain Qualifiers: Abdominal location: generalized Qualified Code(s): R10.84 - Generalized abdominal pain (5) Cervical cancer Qualifiers: Malignant neoplasm of cervix location: unspecified location Qualified Code(s) : C53.9 - Malignant neoplasm of cervix uteri, unspecified
[2018-04-08] MEDS: Gabapentin 300 MG Capsule PO SCH ×2 (14:03→16:59)
[2018-04-09] MEDS: Insulin NovoLIN Regular Correctional Sugar Inj SQ SCH ×3 (06:20→18:36)
[2018-04-09] MEDS: Sodium Chloride 0.9% 2 ML Flush BID IV.FLUSH SCH ×2 (08:38→22:47)
[2018-04-09] MEDS: Sucralfate 1 GM Tablet PO SCH ×4 (08:38→22:46)
[2018-04-09] MEDS: Gabapentin 300 MG Capsule PO SCH ×3 (08:38→18:36)
--- NOTE | 2018-04-09 16:33 | P.PNIM ---
Subjective Interval history: Patient reports she is feeling better today. Pain is better controlled with the addition of gabapentin. Physical Exam Vital signs: Vital Signs 04/08/18 20:00 04/09/18 00:00 04/09/18 04:00 Temperature 99.1 F 98.8 F 98.8 F Pulse Rate 98 H 93 H 82 Respiratory Rate 20 20 20 Blood Pressure 95/54 L 97/57 L 112/67 Pulse Oximetry 97 97 99 04/09/18 08:00 04/09/18 12:00 Temperature 99.8 F H 99.4 F Pulse Rate 94 H 88 Respiratory Rate 18 18 Blood Pressure 100/58 L 96/61 L Pulse Oximetry 98 98 Intake & Output 04/08/18 04/09/18 04/09/18 18:59 06:59 18:59 Intake Total 400 / 400 Balance 400 / 400 Intake: Oral 400 / 400 Other: # Voids 1 # Incontinent Voids 1 1 # Urine Diapers 1 Date of Last Bowel Movement 04/08/18 04/09/18 04/07/18 # Bowel Movements 2 1 # Incontinent Bowel Movements 1 Narrative: GENERAL: Elderly female, sitting comfortably in bed, in no acute distress SKIN: Left upper chest and back with healing shingle lesion. CARDIOVASCULAR: Regular rate and rhythm without murmurs, gallops, or rubs. RESPIRATORY: Breath sounds equal bilaterally. No accessory muscle use. GASTROINTESTINAL: Abdomen soft, non-tender, nondistended. MUSCULOSKELETAL: No cyanosis, or edema. NEURO: AAO x3, no focal deficits, speech is clear. - Urinary Catheter Management Straight Cath placed during this visit: yes, but has since been removed by the nurse Reason for continuing: Not indwelling catheter Insertion date: 03/16/18 Insertion time: 13:02 Removal date: 03/16/18 Removal time: 12:04 PUREWIC Cath placed during this visit: no Results - Labs CBC & Chem 7: 04/08/18 06:30 04/08/18 06:30 Laboratory Results - last 24 hr 04/08/18 04/08/18 04/09/18 16:54 23:04 06:00 POC Glucose 133 H 111 H 127 H 04/09/18 12:12 POC Glucose 155 H - Procedures EGD PROCEDURE REPORT EXAM DATE: 03/17/2018 PATIENT NAME: Morgan Salemron MR #: [id number] BIRTHDATE: 1955 ATTENDING: Bailey Trevizo MD ORDER #: [id number] WASTEWATER MANAGER: Kennedy Cabello and Keyanna Lubin STATUS: inpatient INDICATIONS: The patient is a 62 yr old female here for an EGD due to acute post hemorrhagic anemia and melena PROCEDURE PERFORMED: EGD w/ ablation MEDICATIONS: None and Per Anesthesia. TOPICAL ANESTHETIC: CONSENT: The patient understands the risks and benefits of the procedure and understands that these risks include, but are not limited to: sedation, allergic reaction, infection, perforation and/or bleeding. Alternative means of evaluation and treatment include, among others: physical exam, x-rays, and/or surgical intervention. The patient elects to proceed with this endoscopic procedure. medical equipment was checked for proper function. Hand hygiene and appropriate measures for infection prevention was taken. After the risks, benefits and alternatives of the procedure were thoroughly explained, Informed consent was verified, confirmed and timeout was successfully executed by the treatment team. The patient was anesthetized with topical anesthesia and the Pentax EG-2990i endoscope was introduced through the mouth and advanced to the first portion of the duodenum. Retroflexed views revealed large blood clot The gastroscope was then slowly withdrawn and removed. ESOPHAGUS: The mucosa of the esophagus appeared normal. STOMACH: Large blood clot covering 2/3rds of the stomach. No active bleeding. Suctioned as much as possible. DUODENUM: A large non-bleeding non-bleeding and shallow ulcer, ranging between 5-9mm in size, with surrounding edema, a pigmented spot and an adherent clot was found in the duodenal bulb. Argon plasma coagulation was applied to the site. With complete hemostasis achieved. ADVERSE EVENTS: There were no complications. IMPRESSIONS: 1. The esophagus appeared normal 2. Large blood clot covering 2/3rds of the stomach. No active bleeding. Suctioned as much as possible 3. Large non-bleeding ulcer, ranging between 5-9mm in size, was found in the duodenal bulb; Argon plasma coagulation was applied to the site; with complete hemostasis achieved 4. Retroflexed views revealed large blood clot RECOMMENDATIONS: 1. Continue PPI 2. Monitor in ICU, transfuse as needed. Clear liquid diet. IV reglan. REpeat egd tomorrow or monday depending upon clinical course. PATIENT CONDITION: stable DISPOSITION: Inpatient REPEAT EXAM: Return 1 day EGD Bailey Trevizo MD eSigned: Bailey Trevizo MD 03/17/2018 1:48 PM EGD PROCEDURE REPORT EXAM DATE: 03/19/2018 PATIENT NAME: Morgan Salmeron MR #: [id number] BIRTHDATE: 1955 ATTENDING: Bailey Trevizo MD ORDER #: [id number] WASTEWATER MANAGER: Alberto Padilla Pena, Gabriela, and Guillermina Potter STATUS: inpatient INDICATIONS: The patient is a 62 yr old female here for an EGD due to acute post hemorrhagic anemia PROCEDURE PERFORMED: EGD, diagnostic MEDICATIONS: None and Per Anesthesia. TOPICAL ANESTHETIC: CONSENT: The patient understands the risks and benefits of the procedure and understands that these risks include, but are not limited to: sedation, allergic reaction, infection, perforation and/or bleeding. Alternative means of evaluation and treatment include, among others: physical exam, x-rays, and/or surgical intervention. The patient elects to proceed with this endoscopic procedure. medical equipment was checked for proper function. Hand hygiene and appropriate measures for infection prevention was taken. After the risks, benefits and alternatives of the procedure were thoroughly explained, Informed consent was verified, confirmed and timeout was successfully executed by the treatment team. The patient was anesthetized with topical anesthesia and the [employer] EG-2990i endoscope was introduced through the mouth and advanced to the second portion of the duodenum. Retroflexed views revealed no abnormalities The gastroscope was then slowly withdrawn and removed. ESOPHAGUS: The mucosa of the esophagus appeared normal. STOMACH: Two large non-bleeding, deep and irregular shaped ulcers, measuring 20 x 30mm in size, with heaped up edges, an adherent clot and a pigmented spot were found in the gastric body, on the lesser curvature of the stomach, and in the gastric antrum. DUODENUM: Two non-bleeding, shallow and clean-based ulcers ranging between 3-5 mm in size were found in the 1st part of the duodenum. ADVERSE EVENTS: There were no complications. IMPRESSIONS: 1. The esophagus appeared normal 2. Two large ulcers, measuring 20 x 30mm in size, were found in the gastric body, on the lesser curvature of the stomach, and in the gastric antrum 3. Two ulcers ranging between 3-5 mm in size were found in the 1st part of the duodenum 4. Retroflexed views revealed no abnormalities RECOMMENDATIONS: 1. Anti-reflux regimen 2. Continue PPI 3. If rebleeds needs IR consultation with L gastric artery embolization PATIENT CONDITION: stable DISPOSITION: Inpatient REPEAT EXAM: Return 1 month EGD Bailey Trevizo MD eSigned: Bailey Trevizo MD 03/19/2018 12:13 PM Assessment and Plan - Assessment (1) Abdominal pain Code(s): R10.9 - Unspecified abdominal pain Status: Resolved (2) Acute GI bleeding Code(s): K92.2 - Gastrointestinal hemorrhage, unspecified Status: Acute (3) Acute hypotension Code(s): I95.9 - Hypotension, unspecified Status: Acute (4) Upper GI bleed Code(s): K92.2 - Gastrointestinal hemorrhage, unspecified Status: Acute (5) Cervical cancer Code(s): C53.9 - Malignant neoplasm of cervix uteri, unspecified Status: Chronic (6) Diabetes Code(s): E11.9 - Type 2 diabetes mellitus without complications Status: Chronic (7) Chronic back pain Code(s): M54.9 - Dorsalgia, unspecified; G89.29 - Other chronic pain Status: Chronic (8) Hypertension Code(s): I10 - Essential (primary) hypertension Status: Chronic - Plan 63 y/o AAM with PMHx of DM and Metastatic Cervical Cancer admitted for inpatient management of upper GI bleed, now resolved, patient now pending placement. Continue rehab efforts. 1. Anemia, acute blood loss s/p blood transfusion of 6U pRBC's previously this admission Continue PPI IV Patine followed by GI. Follow-up CBC in AM Repeat EGD on 04/04 showed possible esophagitis, gastric and duodenal ulcers. No active bleeding. H&H stable 2. Previous Upper GI bleed EGD on 03/19 showed large 2 x 3 cm ulcer, had planned for rpt EGD in 1mth Repeat EGD findings as noted above. Continue PPI, Carafate Appreciate gastroenterology recommendations If continued bleeding, may consider bleeding scan. 3. Shingles, resolved. Postherpetic neuralgia. s/p 7-day course of Valtrex and topical Acyclovir, stopped on 04/04 Patient is having postherpetic neuralgia. Started Gabapentin. Pain is better controlled. Continue Percocet as needed. 4. Metastatic Cervical Cancer Patient to continue outpatient chemotherapy when ready. Pain better controlled with Percocet. 5. Type 2 Diabetes Mellitus Accu-Cheks with sliding scale insulin coverage Blood sugar stable Diabetic diet 6. DVT Prophylaxis: SCD's 7. Dispo: F/U EGD results Code Status: full Discharge Planning: No benefit for alf facility placement. Daily physical therapy. (1) Abdominal pain Qualifiers: Abdominal location: generalized Qualified Code(s): R10.84 - Generalized abdominal pain (5) Cervical cancer Qualifiers: Malignant neoplasm of cervix location: unspecified location Qualified Code(s) : C53.9 - Malignant neoplasm of cervix uteri, unspecified
[2018-04-10] MEDS: Insulin NovoLIN Regular Correctional Sugar Inj SQ SCH ×4 (00:39→18:48)
[2018-04-10] MEDS: Sucralfate 1 GM Tablet PO SCH ×4 (08:41→22:10)
[2018-04-10] MEDS: Sodium Chloride 0.9% 2 ML Flush BID IV.FLUSH SCH ×2 (08:41→22:11)
[2018-04-10] MEDS: Gabapentin 300 MG Capsule PO SCH ×3 (08:41→18:56)
[2018-04-10 09:57] LABS: Hematocrit 24.7 % (35.0-46.0); Hemoglobin 8.2 gm/dL (11.6-15.3); Mean Corpuscular HGB Conc 33.4 % (32.0-36.0); Mean Corpuscular Hemoglobin 30.5 pg (27.0-34.0); Mean Corpuscular Volume 91.3 fL (80.0-100.0); Mean Platelet Volume 6.6 fL (7.0-11.0); Platelet Count 106 th/mm3 (150-450); Red Cell Distribution Width 16.1 % (11.6-17.2); White Blood Count 7.1 th/mm3 (4.0-11.0)
--- NOTE | 2018-04-10 17:17 | P.PNIM ---
Subjective Interval history: Patient reports she is feeling okay. Participating with physical therapy. Pain is controlled. Physical Exam Vital signs: Vital Signs 04/09/18 20:00 04/10/18 00:00 04/10/18 04:00 Temperature 99.9 F H 98.1 F Pulse Rate 108 H 103 H 97 H Respiratory Rate 16 15 Blood Pressure 92/62 L 111/69 Pulse Oximetry 96 99 04/10/18 08:00 04/10/18 12:00 Temperature 99.5 F 99.5 F Pulse Rate 98 H 98 H Respiratory Rate 18 18 Blood Pressure 87/53 L 90/63 L Pulse Oximetry 99 98 Intake & Output 04/09/18 04/10/18 04/10/18 18:59 06:59 18:59 Output Total 400 / 400 Balance -400 / -400 Weight 64 kg Output: Urine 400 / 400 Other: # Incontinent Voids 3 Date of Last Bowel Movement 04/07/18 04/10/18 # Bowel Movements 1 # Incontinent Bowel Movements 1 Narrative: GENERAL: Elderly female, sitting comfortably in bed, in no acute distress SKIN: Left upper chest and back with healing shingle lesion. CARDIOVASCULAR: Regular rate and rhythm without murmurs, gallops, or rubs. RESPIRATORY: Breath sounds equal bilaterally. No accessory muscle use. GASTROINTESTINAL: Abdomen soft, non-tender, nondistended. MUSCULOSKELETAL: No cyanosis, or edema. NEURO: AAO x3, no focal deficits, speech is clear. - Urinary Catheter Management Straight Cath placed during this visit: yes, but has since been removed by the nurse Reason for continuing: Not indwelling catheter Insertion date: 03/16/18 Insertion time: 13:02 Removal date: 03/16/18 Removal time: 12:04 PUREWIC Cath placed during this visit: no Results - Labs CBC & Chem 7: 04/10/18 06:30 04/08/18 06:30 Laboratory Results - last 24 hr 04/09/18 04/10/18 04/10/18 18:12 00:32 06:28 WBC RBC Hgb Hct MCV MCH MCHC RDW Plt Count MPV Hematology Comments POC Glucose 222 H 159 H 120 H 04/10/18 04/10/18 06:30 13:08 WBC 7.1 RBC 2.70 L Hgb 8.2 L Hct 24.7 L MCV 91.3 MCH 30.5 MCHC 33.4 RDW 16.1 Plt Count 106 L MPV 6.6 L Hematology Comments POC Glucose 152 H - Procedures EGD PROCEDURE REPORT EXAM DATE: 03/17/2018 PATIENT NAME: Morgan Salmeron MR #: [id number] BIRTHDATE: 1955 ATTENDING: Bailey Trevizo MD ORDER #: [id number] ANGIOGRAPHY NURSE: Kennedy Cabello and Keyanna Lubin STATUS: inpatient INDICATIONS: The patient is a 62 yr old female here for an EGD due to acute post hemorrhagic anemia and melena PROCEDURE PERFORMED: EGD w/ ablation MEDICATIONS: None and Per Anesthesia. TOPICAL ANESTHETIC: CONSENT: The patient understands the risks and benefits of the procedure and understands that these risks include, but are not limited to: sedation, allergic reaction, infection, perforation and/or bleeding. Alternative means of evaluation and treatment include, among others: physical exam, x-rays, and/or surgical intervention. The patient elects to proceed with this endoscopic procedure. medical equipment was checked for proper function. Hand hygiene and appropriate measures for infection prevention was taken. After the risks, benefits and alternatives of the procedure were thoroughly explained, Informed consent was verified, confirmed and timeout was successfully executed by the treatment team. The patient was anesthetized with topical anesthesia and the Pentax EG-2990i endoscope was introduced through the mouth and advanced to the first portion of the duodenum. Retroflexed views revealed large blood clot The gastroscope was then slowly withdrawn and removed. ESOPHAGUS: The mucosa of the esophagus appeared normal. STOMACH: Large blood clot covering 2/3rds of the stomach. No active bleeding. Suctioned as much as possible. DUODENUM: A large non-bleeding non-bleeding and shallow ulcer, ranging between 5-9mm in size, with surrounding edema, a pigmented spot and an adherent clot was found in the duodenal bulb. Argon plasma coagulation was applied to the site. With complete hemostasis achieved. ADVERSE EVENTS: There were no complications. IMPRESSIONS: 1. The esophagus appeared normal 2. Large blood clot covering 2/3rds of the stomach. No active bleeding. Suctioned as much as possible 3. Large non-bleeding ulcer, ranging between 5-9mm in size, was found in the duodenal bulb; Argon plasma coagulation was applied to the site; with complete hemostasis achieved 4. Retroflexed views revealed large blood clot RECOMMENDATIONS: 1. Continue PPI 2. Monitor in ICU, transfuse as needed. Clear liquid diet. IV reglan. REpeat egd tomorrow or monday depending upon clinical course. PATIENT CONDITION: stable DISPOSITION: Inpatient REPEAT EXAM: Return 1 day EGD Bailey Trevizo MD eSigned: Bailey Trevizo MD 03/17/2018 1:48 PM EGD PROCEDURE REPORT EXAM DATE: 03/19/2018 PATIENT NAME: Morgan Salmeron MR #: [id number] BIRTHDATE: 1955 ATTENDING: Bailey Trevizo MD ORDER #: [id number] ANGIOGRAPHY NURSE: Alberto Padilla Pena, Gabriela, and Guillermina Potter STATUS: inpatient INDICATIONS: The patient is a 62 yr old female here for an EGD due to acute post hemorrhagic anemia PROCEDURE PERFORMED: EGD, diagnostic MEDICATIONS: None and Per Anesthesia. TOPICAL ANESTHETIC: CONSENT: The patient understands the risks and benefits of the procedure and understands that these risks include, but are not limited to: sedation, allergic reaction, infection, perforation and/or bleeding. Alternative means of evaluation and treatment include, among others: physical exam, x-rays, and/or surgical intervention. The patient elects to proceed with this endoscopic procedure. medical equipment was checked for proper function. Hand hygiene and appropriate measures for infection prevention was taken. After the risks, benefits and alternatives of the procedure were thoroughly explained, Informed consent was verified, confirmed and timeout was successfully executed by the treatment team. The patient was anesthetized with topical anesthesia and the Pentax EG-2990i endoscope was introduced through the mouth and advanced to the second portion of the duodenum. Retroflexed views revealed no abnormalities The gastroscope was then slowly withdrawn and removed. ESOPHAGUS: The mucosa of the esophagus appeared normal. STOMACH: Two large non-bleeding, deep and irregular shaped ulcers, measuring 20 x 30mm in size, with heaped up edges, an adherent clot and a pigmented spot were found in the gastric body, on the lesser curvature of the stomach, and in the gastric antrum. DUODENUM: Two non-bleeding, shallow and clean-based ulcers ranging between 3-5 mm in size were found in the 1st part of the duodenum. ADVERSE EVENTS: There were no complications. IMPRESSIONS: 1. The esophagus appeared normal 2. Two large ulcers, measuring 20 x 30mm in size, were found in the gastric body, on the lesser curvature of the stomach, and in the gastric antrum 3. Two ulcers ranging between 3-5 mm in size were found in the 1st part of the duodenum 4. Retroflexed views revealed no abnormalities RECOMMENDATIONS: 1. Anti-reflux regimen 2. Continue PPI 3. If rebleeds needs IR consultation with L gastric artery embolization PATIENT CONDITION: stable DISPOSITION: Inpatient REPEAT EXAM: Return 1 month EGD Bailey Trevizo MD eSigned: Bailey Trevizo MD 03/19/2018 12:13 PM Assessment and Plan - Assessment (1) Abdominal pain Code(s): R10.9 - Unspecified abdominal pain Status: Resolved (2) Acute GI bleeding Code(s): K92.2 - Gastrointestinal hemorrhage, unspecified Status: Acute (3) Acute hypotension Code(s): I95.9 - Hypotension, unspecified Status: Acute (4) Upper GI bleed Code(s): K92.2 - Gastrointestinal hemorrhage, unspecified Status: Acute (5) Cervical cancer Code(s): C53.9 - Malignant neoplasm of cervix uteri, unspecified Status: Chronic (6) Diabetes Code(s): E11.9 - Type 2 diabetes mellitus without complications Status: Chronic (7) Chronic back pain Code(s): M54.9 - Dorsalgia, unspecified; G89.29 - Other chronic pain Status: Chronic (8) Hypertension Code(s): I10 - Essential (primary) hypertension Status: Chronic - Plan 63 y/o AAM with PMHx of DM and Metastatic Cervical Cancer admitted for inpatient management of upper GI bleed, now resolved, patient now pending placement. Continue rehab efforts. 1. Anemia, acute blood loss s/p blood transfusion of 6U pRBC's previously this admission Continue PPI IV Patine followed by GI. Repeat EGD on 04/04 showed possible esophagitis, gastric and duodenal ulcers. No active bleeding. H&H trending down. Follow-up CBC in a.m. 2. Previous Upper GI bleed EGD on 03/19 showed large 2 x 3 cm ulcer, had planned for rpt EGD in 1mth Repeat EGD findings as noted above. Continue PPI, Carafate Appreciate gastroenterology recommendations If continued bleeding, may consider bleeding scan. 3. Shingles, resolved. Postherpetic neuralgia. s/p 7-day course of Valtrex and topical Acyclovir, stopped on 04/04 Patient is having postherpetic neuralgia. Started Gabapentin. Pain is better controlled. Continue Percocet as needed. 4. Metastatic Cervical Cancer Patient to continue outpatient chemotherapy when ready. Pain better controlled with Percocet. 5. Type 2 Diabetes Mellitus Accu-Cheks with sliding scale insulin coverage Blood sugar stable Diabetic diet 6. DVT Prophylaxis: SCD's 7. Dispo: F/U EGD results Code Status: full Discharge Planning: No benefit for alf facility placement. Daily physical therapy. (1) Abdominal pain Qualifiers: Abdominal location: generalized Qualified Code(s): R10.84 - Generalized abdominal pain (5) Cervical cancer Qualifiers: Malignant neoplasm of cervix location: unspecified location Qualified Code(s) : C53.9 - Malignant neoplasm of cervix uteri, unspecified
[2018-04-11] MEDS: Insulin NovoLIN Regular Correctional Sugar Inj SQ SCH ×5 (02:44→23:56)
[2018-04-11 07:21] LABS: Hematocrit 24.2 % (35.0-46.0); Hemoglobin 8.2 gm/dL (11.6-15.3); Mean Corpuscular HGB Conc 33.9 % (32.0-36.0); Mean Corpuscular Hemoglobin 31.5 pg (27.0-34.0); Mean Corpuscular Volume 92.9 fL (80.0-100.0); Mean Platelet Volume 7.1 fL (7.0-11.0); Platelet Count 111 th/mm3 (150-450); Red Blood Count 2.61 mil/mm3 (4.00-5.30); Red Cell Distribution Width 16.1 % (11.6-17.2); White Blood Count 6.5 th/mm3 (4.0-11.0)
[2018-04-11] MEDS: Gabapentin 300 MG Capsule PO SCH ×3 (09:52→18:12)
[2018-04-11] MEDS: Sucralfate 1 GM Tablet PO SCH ×4 (09:52→22:54)
--- NOTE | 2018-04-11 13:36 | P.PN ---
Subjective Interval history: awake and alert- states discomfort acroos the abdomen- taking po well, no nausea or vomiting, states had a BM, voiding but bladder seem distended on exam Physical Exam Vital signs: Vital Signs 04/10/18 16:00 04/10/18 18:57 04/10/18 20:00 Temperature 102.1 F H 98.8 F 102.3 F H Pulse Rate 104 H 98 H Respiratory Rate 18 18 Blood Pressure 91/54 L 82/45 L Pulse Oximetry 99 96 04/10/18 21:00 04/10/18 22:23 04/11/18 00:00 Temperature 100.8 F H 100.1 F H 99.8 F H Pulse Rate 101 H 101 H 101 H Respiratory Rate 20 20 18 Blood Pressure 102/61 100/59 L 90/54 L Pulse Oximetry 96 97 98 04/11/18 04:00 04/11/18 08:00 04/11/18 12:00 Temperature 98.4 F 100.2 F H 98.6 F Pulse Rate 89 99 H 86 Respiratory Rate 18 16 16 Blood Pressure 145/70 H 101/53 L 97/54 L Pulse Oximetry 97 100 95 Intake & Output 04/10/18 04/11/18 04/11/18 18:59 06:59 18:59 Intake Total 240 / 240 Output Total 500 / 500 Balance 240 / 240 -500 / -500 Intake: Oral 240 / 240 Output: Urine 500 / 500 Other: # Incontinent Voids 2 Date of Last Bowel Movement 04/11/18 # Bowel Movements 2 # Incontinent Bowel Movements 2 Narrative: GENERAL: Elderly female, sitting comfortably in bed, in no acute distress SKIN: Left upper chest and back with healing shingle lesion. CARDIOVASCULAR: Regular rate and rhythm without murmurs, gallops, or rubs. RESPIRATORY: Breath sounds equal bilaterally. No accessory muscle use. GASTROINTESTINAL: Abdomen soft, non-tender, ? Bladder distention- good bowel sounds MUSCULOSKELETAL: No cyanosis, + edema. NEURO: AAO x3, no focal deficits, speech is clear. - Urinary Catheter Management Straight Cath placed during this visit: yes, but has since been removed by the nurse Reason for continuing: Not indwelling catheter Insertion date: 03/16/18 Insertion time: 13:02 Removal date: 03/16/18 Removal time: 12:04 PUREWIC Cath placed during this visit: no Indwelling Urethral Catheter Cath placed during this visit: yes Reason for continuing: Acute urinary retention Insertion date: 04/11/18 Insertion time: 15:30 Results - Labs CBC & Chem 7: 04/13/18 03:15 04/13/18 03:15 Laboratory Results - last 24 hr 04/07/18 04/10/18 04/11/18 07:45 18:38 02:39 WBC RBC Hgb Hct MCV MCH MCHC RDW Plt Count MPV POC Glucose 143 H 168 H Gastrin 48 04/11/18 04/11/18 06:00 06:15 WBC 6.5 RBC 2.61 L Hgb 8.2 L Hct 24.2 L MCV 92.9 MCH 31.5 MCHC 33.9 RDW 16.1 Plt Count 111 L MPV 7.1 POC Glucose 141 H Gastrin - Procedures EGD PROCEDURE REPORT EXAM DATE: 03/17/2018 IMPRESSIONS: 1. The esophagus appeared normal 2. Large blood clot covering 2/3rds of the stomach. No active bleeding. Suctioned as much as possible 3. Large non-bleeding ulcer, ranging between 5-9mm in size, was found in the duodenal bulb; Argon plasma coagulation was applied to the site; with complete hemostasis achieved 4. Retroflexed views revealed large blood clot EGD PROCEDURE REPORT EXAM DATE: 03/19/2018 IMPRESSIONS: 1. The esophagus appeared normal 2. Two large ulcers, measuring 20 x 30mm in size, were found in the gastric body, on the lesser curvature of the stomach, and in the gastric antrum 3. Two ulcers ranging between 3-5 mm in size were found in the 1st part of the duodenum 4. Retroflexed views revealed no abnormalities RECOMMENDATIONS: 1. Anti-reflux regimen 2. Continue PPI 3. If rebleeds needs IR consultation with L gastric artery embolization PATIENT CONDITION: stable DISPOSITION: Inpatient REPEAT EXAM: Return 1 month EGD Bailey Trevizo MD eSigned: Bailey Trevizo MD 03/19/2018 12:13 PM Assessment and Plan - Assessment (1) Abdominal pain Code(s): R10.9 - Unspecified abdominal pain Status: Resolved (2) Acute GI bleeding Code(s): K92.2 - Gastrointestinal hemorrhage, unspecified Status: Acute (3) Acute hypotension Code(s): I95.9 - Hypotension, unspecified Status: Acute (4) Upper GI bleed Code(s): K92.2 - Gastrointestinal hemorrhage, unspecified Status: Acute (5) Cervical cancer Code(s): C53.9 - Malignant neoplasm of cervix uteri, unspecified Status: Chronic (6) Diabetes Code(s): E11.9 - Type 2 diabetes mellitus without complications Status: Chronic (7) Chronic back pain Code(s): M54.9 - Dorsalgia, unspecified; G89.29 - Other chronic pain Status: Chronic (8) Hypertension Code(s): I10 - Essential (primary) hypertension Status: Chronic - Plan 63 y/o AAM with PMHx of DM and Metastatic Cervical Cancer admitted for inpatient management of upper GI bleed, now resolved, patient now pending placement. Continue rehab efforts. 1. Anemia, acute blood loss- resolved s/p blood transfusion of 6U pRBC's previously this admission Continue PPI IV Patine followed by GI. Repeat EGD on 04/04 showed possible esophagitis, gastric and duodenal ulcers. No active bleeding. H&Hstabilizing 2. Previous Upper GI bleed EGD on 03/19 showed large 2 x 3 cm ulcer, had planned for rpt EGD in 1mth Repeat EGD findings as noted above. Continue PPI, Carafate Appreciate gastroenterology recommendations If continued bleeding, may consider bleeding scan. 3. Shingles, resolved. Postherpetic neuralgia. s/p 7-day course of Valtrex and topical Acyclovir, stopped on 04/04 Patient is having postherpetic neuralgia. Started Gabapentin. Pain is better controlled. Continue Percocet as needed. 4. Metastatic Cervical Cancer Patient to continue outpatient chemotherapy when ready. Pain better controlled with Percocet. 5. Type 2 Diabetes Mellitus Accu-Cheks with sliding scale insulin coverage Blood sugar stable Diabetic diet 6. DVT Prophylaxis: SCD's 7. Dispo: F/U EGD results 8. Distended bladder on exam- with abdominal discomfort - check bladder scan for urinary retention - paz if significant retention Code Status: full Discharge Planning: No benefit for prison facility placement. Daily physical therapy check bladder sca (1) Abdominal pain Qualifiers: Abdominal location: generalized Qualified Code(s): R10.84 - Generalized abdominal pain (5) Cervical cancer Qualifiers: Malignant neoplasm of cervix location: unspecified location Qualified Code(s) : C53.9 - Malignant neoplasm of cervix uteri, unspecified
[2018-04-11] MEDS: Sodium Chloride 0.9% 2 ML Flush BID IV.FLUSH SCH ×2 (14:06→22:54)
[2018-04-12] MEDS: Insulin NovoLIN Regular Correctional Sugar Inj SQ SCH ×3 (06:50→18:16)
[2018-04-12] MEDS: Gabapentin 300 MG Capsule PO SCH ×3 (09:34→18:15)
[2018-04-12] MEDS: Sucralfate 1 GM Tablet PO SCH ×4 (09:34→22:14)
[2018-04-12] MEDS: Sodium Chloride 0.9% 2 ML Flush BID IV.FLUSH SCH ×2 (09:35→22:15)
--- NOTE | 2018-04-12 13:48 | P.PN ---
Subjective Interval history: awake and alert states poor po appetite no nausea or vomiting comlains of pain abdomina and back- beign abdominal exam urinary retnetion- paz placed 04/11- Physical Exam Vital signs: Vital Signs 04/11/18 16:00 04/11/18 20:00 04/12/18 00:00 Temperature 101.3 F H 100.7 F H Pulse Rate 78 98 H 101 H Respiratory Rate 18 18 Blood Pressure 90/52 L 88/52 L Pulse Oximetry 97 95 04/12/18 04:00 04/12/18 08:00 04/12/18 12:00 Temperature 99.2 F 98.8 F 99.4 F Pulse Rate 88 98 H 86 Respiratory Rate 20 18 18 Blood Pressure 91/54 L 104/60 100/59 L Pulse Oximetry 98 99 98 Intake & Output 04/11/18 04/12/18 04/12/18 18:59 06:59 18:59 Intake Total 440 / 440 60 / 60 Output Total 2704 / 2704 1999 2150 / 2150 Balance -2264 / -2264 -1940 / -1940 -2150 / -2150 Intake: Oral 240 / 240 60 / 60 Anesthesia Amount 200 / 200 Output: Urine 500 / 500 1999 2150 / 2150 Stool 4 / 4 Urine Amount (Catheter) 2200 / 2200 Indwelling Urethral Catheter 1200 / 1200 PUREWIC 1000 / 1000 Other: # Voids 1 # Incontinent Voids 2 2 # Urine Diapers 1 Date of Last Bowel Movement 04/11/18 04/12/18 04/12/18 # Bowel Movements 2 1 # Incontinent Bowel Movements 2 Narrative: GENERAL: Elderly female, sitting comfortably in bed, in no acute distress SKIN: Left upper chest and back with healing shingle lesion. CARDIOVASCULAR: Regular rate and rhythm without murmurs, gallops, or rubs. RESPIRATORY: Breath sounds equal bilaterally. No accessory muscle use. GASTROINTESTINAL: Abdomen soft, non-tender, good bowel sounds, no guarding or rigidity MUSCULOSKELETAL: No cyanosis,+ edema NEURO: AAO x3, no focal deficits, speech is clear. - Urinary Catheter Management Straight Cath placed during this visit: yes, but has since been removed by the nurse Reason for continuing: Acute urinary retention Insertion date: 03/16/18 Insertion time: 13:02 Removal date: 03/16/18 Removal time: 12:04 Indwelling Urethral Catheter Cath placed during this visit: yes Reason for continuing: Acute urinary retention Insertion date: 04/11/18 Insertion time: 15:30 PUREWIC Cath placed during this visit: no Reason for continuing: Acute urinary retention Results - Labs CBC & Chem 7: 04/13/18 03:15 04/13/18 03:15 Laboratory Results - last 24 hr 04/11/18 04/12/18 04/12/18 20:38 06:48 09:31 POC Glucose 164 H 143 H 193 H 04/12/18 12:32 POC Glucose 134 H - Procedures EGD PROCEDURE REPORT EXAM DATE: 03/17/2018 IMPRESSIONS: 1. The esophagus appeared normal 2. Large blood clot covering 2/3rds of the stomach. No active bleeding. Suctioned as much as possible 3. Large non-bleeding ulcer, ranging between 5-9mm in size, was found in the duodenal bulb; Argon plasma coagulation was applied to the site; with complete hemostasis achieved 4. Retroflexed views revealed large blood clot EGD PROCEDURE REPORT EXAM DATE: 03/19/2018 IMPRESSIONS: 1. The esophagus appeared normal 2. Two large ulcers, measuring 20 x 30mm in size, were found in the gastric body, on the lesser curvature of the stomach, and in the gastric antrum 3. Two ulcers ranging between 3-5 mm in size were found in the 1st part of the duodenum 4. Retroflexed views revealed no abnormalities RECOMMENDATIONS: 1. Anti-reflux regimen 2. Continue PPI 3. If rebleeds needs IR consultation with L gastric artery embolization PATIENT CONDITION: stable DISPOSITION: Inpatient REPEAT EXAM: Return 1 month EGD Bailey Trevizo MD eSigned: Bailey Trevizo MD 03/19/2018 12:13 PM Assessment and Plan - Assessment (1) Abdominal pain Code(s): R10.9 - Unspecified abdominal pain Status: Resolved (2) Acute GI bleeding Code(s): K92.2 - Gastrointestinal hemorrhage, unspecified Status: Acute (3) Acute hypotension Code(s): I95.9 - Hypotension, unspecified Status: Acute (4) Upper GI bleed Code(s): K92.2 - Gastrointestinal hemorrhage, unspecified Status: Acute (5) Cervical cancer Code(s): C53.9 - Malignant neoplasm of cervix uteri, unspecified Status: Chronic (6) Diabetes Code(s): E11.9 - Type 2 diabetes mellitus without complications Status: Chronic (7) Chronic back pain Code(s): M54.9 - Dorsalgia, unspecified; G89.29 - Other chronic pain Status: Chronic (8) Hypertension Code(s): I10 - Essential (primary) hypertension Status: Chronic - Plan 63 y/o AAM with PMHx of DM and Metastatic Cervical Cancer admitted for inpatient management of upper GI bleed, now resolved, patient now pending placement. Continue rehab efforts. 1. Anemia, acute blood loss- resolved s/p blood transfusion of 6U pRBC's previously this admission on PPI 40 mg bid Patine followed by GI. Repeat EGD on 04/04 showed possible esophagitis, gastric and duodenal ulcers. No active bleeding. H&Hstabilizing 2. Previous Upper GI bleed EGD on 03/19 showed large 2 x 3 cm ulcer, had planned for rpt EGD in 1mth Repeat EGD findings as noted above. Continue PPI, Carafate Appreciate gastroenterology recommendations If continued bleeding, may consider bleeding scan. 3. Shingles, resolved. Postherpetic neuralgia. s/p 7-day course of Valtrex and topical Acyclovir, stopped on 04/04 Patient is having postherpetic neuralgia. Started Gabapentin.- will increase dose Pain is better controlled. Continue Percocet as needed. 4. Metastatic Cervical Cancer Patient to continue outpatient chemotherapy when ready. Pain better controlled with Percocet. 5. Type 2 Diabetes Mellitus Accu-Cheks with sliding scale insulin coverage Blood sugar stable Diabetic diet 6. DVT Prophylaxis: SCD's 7. Dispo: F/U EGD results 8. Acute urinary retention - paz placed 04/11 Code Status: full Discharge Planning: No benefit for senior living facility placement. Daily physical therapy (1) Abdominal pain Qualifiers: Abdominal location: generalized Qualified Code(s): R10.84 - Generalized abdominal pain (5) Cervical cancer Qualifiers: Malignant neoplasm of cervix location: unspecified location Qualified Code(s) : C53.9 - Malignant neoplasm of cervix uteri, unspecified
[2018-04-12] MEDS: Metoclopramide 10 MG Tablet PO SCH ×2 (18:15→22:14)
[2018-04-13] MEDS: Sodium Chlor 0.9% Inj 500 ML IV.SIG SCH (00:40)
[2018-04-13] MEDS: Insulin NovoLIN Regular Correctional Sugar Inj SQ SCH ×4 (00:46→17:39)
[2018-04-13] MEDS ORDERED: Sodium Chlor 0.9% Inj 500 ML IV.SIG SCH (01:00)
--- NOTE | 2018-04-13 02:34 | XR ---
EXAM DATE: 04/13/2018 2:30 AM EDT AGE/SEX: 63 years / Female INDICATIONS: Fever. CLINICAL DATA: This is the patient's initial encounter. Patient reports that signs and symptoms have been present for 1 day and indicates a pain score of 0/10. MEDICAL/SURGICAL HISTORY: . Deep venous thrombosis. Metastatic disease. Carcinoma, cervical. As thma, hypertension, diabetes, hydronephrosis, pelvic mass. None. COMPAR[place] [facility] [place]16/2018. . FINDINGS: A single AP view of the chest demonstrates the lungs to be symmetrically aerated without evidence of mass, infiltrate or effusion. The cardiomediastinal contours are unremarkable. Osseous structures a re intact. [id number] is in place via right internal jugular approach with its tip in the superio r vena cava. CONCLUSION: No acute cardiopulmonary disease. Electronically signed by: Acosta Christian MD 04/13/2018 2:33 AM EDT
[2018-04-13] MEDS: Sod Chloride 0.9% Inj 1,000 ML IV.CONT SCH ×3 (03:22→17:40)
[2018-04-13 03:33] LABS: Baso % (Auto) 0.2 % (0.0-2.0); Eos % (Auto) 0.4 % (0.0-4.0); Hemoglobin 7.7 gm/dL (11.6-15.3); Lymph # (Auto) 0.3 th/mm3 (1.0-4.8); Mean Corpuscular HGB Conc 33.2 % (32.0-36.0); Mean Corpuscular Hemoglobin 30.5 pg (27.0-34.0); Mean Corpuscular Volume 91.8 fL (80.0-100.0); Mean Platelet Volume 6.8 fL (7.0-11.0); Mono # (Auto) 0.2 th/mm3 (0.0-0.9); Mono % (Auto) 4.2 % (0.0-8.0); Neut # (Auto) 4.7 th/mm3 (1.8-7.7); Neut % (Auto) 89.2 % (16.0-70.0); Platelet Count 108 th/mm3 (150-450); Red Blood Count 2.51 mil/mm3 (4.00-5.30); Red Cell Distribution Width 16.5 % (11.6-17.2); White Blood Count 5.3 th/mm3 (4.0-11.0)
[2018-04-13 04:03] LABS: Alanine Aminotransferase 72 U/L (10-53); Albumin 1.6 g/dL (3.4-5.0); Anion Gap 9 meq/L (5-15); Aspartate Aminotransferase 69 U/L (15-37); Blood Urea Nitrogen 17 mg/dL (7-18); Calcium 8.1 mg/dL (8.5-10.1); Carbon Dioxide 24.9 meq/L (21.0-32.0); Chloride 103 meq/L (98-107); Glomerular Filtration Rate 59 mL/min (>89); Glucose,Random 97 mg/dL (74-106); Potassium 3.5 meq/L (3.5-5.1); Sodium 137 meq/L (136-145)
[2018-04-13 04:06] LABS: Alkaline Phosphatase 174 U/L (45-117); Total Protein 6.3 g/dL (6.4-8.2)
[2018-04-13 05:07] LABS: Bilirubin,Urine Negative (Negative); Clarity,Urine Cloudy (Clear); Color,Urine Yellow (Yellw/Straw); Glucose,Urine (UA) Negative (Negative); Leukocyte Esterase,Urine Moderate (Negative); Nitrite,Urine Negative (Negative); Urobilinogen,Urine 0.2 mg/dL (Less than 2)
[2018-04-13 05:20] LABS: Bacteria,Urine Occasional /hpf; Mucus,Urine Few /lpf (Occasional)
[2018-04-13 05:21] LABS: Specific Gravity,Urine 1.015 (1.002-1.035)
[2018-04-13] MEDS: Sucralfate 1 GM Tablet PO SCH ×4 (08:20→21:20)
[2018-04-13] MEDS: Metoclopramide 10 MG Tablet PO SCH (08:20)
[2018-04-13] MEDS: Sodium Chloride 0.9% 2 ML Flush BID IV.FLUSH SCH ×2 (08:20→21:21)
[2018-04-13] MEDS: Gabapentin 300 MG Capsule PO SCH ×3 (08:20→17:38)
--- NOTE | 2018-04-13 11:19 | P.PN ---
Subjective Interval history: complain of abdominal discomfort lots of liquid soft stools- wali colored abdomien- alightly distended but soft, midly tender no nausea or vomiting left leg larger compared to right Physical Exam Vital signs: Vital Signs 04/12/18 12:00 04/12/18 15:45 04/12/18 16:00 Temperature 99.4 F 101.1 F H Pulse Rate 86 98 H 98 H Respiratory Rate 18 18 Blood Pressure 100/59 L 109/61 Pulse Oximetry 98 97 04/12/18 20:00 04/12/18 23:38 04/13/18 00:00 Temperature 101.6 F H 100.9 F H Pulse Rate 103 H 88 101 H Respiratory Rate 18 18 20 Blood Pressure 84/50 L 89/53 L 89/51 L Pulse Oximetry 95 95 96 04/13/18 01:51 04/13/18 05:07 04/13/18 07:57 Temperature 101.0 F H 98.4 F 97.5 F L Pulse Rate 102 H 91 H 75 Respiratory Rate 20 20 18 Blood Pressure 89/53 L 89/52 L 104/57 L Pulse Oximetry 98 98 98 Intake & Output 04/12/18 04/13/18 04/13/18 18:59 06:59 18:59 Intake Total 60 / 60 1040 / 1040 500 / 500 Output Total 2150 / 2150 1600 / 1600 Balance -2090 / -2090 -560 / -560 500 / 500 Intake: IV 600 / 600 500 / 500 Ofirmev Inj 1,000 mg In 100 ml 100 / 100 @ 400 mls/hr IV.SIG Q6H PRN Rx# :[id number] NS Inj 500 ML @ 30 mls/hr IV. 500 / 500 500 / 500 SIG .Q10H SAMANTHA Rx#:[id number] Oral 60 / 60 440 / 440 Output: Urine 2150 / 2150 1600 / 1600 Other: # Voids 2 Date of Last Bowel Movement 04/12/18 04/12/18 # Bowel Movements 1 # Incontinent Bowel Movements 1 Narrative: GENERAL: Elderly female, sitting comfortably in bed, in no acute distress SKIN: Left upper chest and back with healing shingle lesion. CARDIOVASCULAR: Regular rate and rhythm without murmurs, gallops, or rubs. RESPIRATORY: Breath sounds equal bilaterally. No accessory muscle use. GASTROINTESTINAL: Abdomen soft, non-tender, good bowel sounds, slightly distended but soft, + tenderness on epigastric and lower abdomen area MUSCULOSKELETAL: No cyanosis, left leg- larger- no calf tenderness NEURO: AAO x3, no focal deficits, speech is clear. - Urinary Catheter Management Straight Cath placed during this visit: yes, but has since been removed by the nurse Reason for continuing: Acute urinary retention Insertion date: 03/16/18 Insertion time: 13:02 Removal date: 03/16/18 Removal time: 12:04 Indwelling Urethral Catheter Cath placed during this visit: yes Reason for continuing: Acute urinary retention Insertion date: 04/11/18 Insertion time: 15:30 PUREWIC Cath placed during this visit: no Reason for continuing: Acute urinary retention Results - Labs CBC & Chem 7: 04/14/18 06:15 04/13/18 03:15 Laboratory Results - last 24 hr 04/12/18 04/12/18 04/12/18 12:32 17:14 20:45 WBC RBC Hgb Hct MCV MCH MCHC RDW Plt Count MPV Neut % (Auto) Lymph % (Auto) [place] % (Auto) Eos % (Auto) Baso % (Auto) Neut # (Auto) Lymph # (Auto) [place] # (Auto) Eos # (Auto) Baso # (Auto) WBC Differential Differential Comment Sodium Potassium Chloride Carbon Dioxide Anion Gap BUN Creatinine Estimated GFR POC Glucose 134 H 152 H 209 H Random Glucose Lactic Acid Calcium Total Bilirubin AST ALT Alkaline Phosphatase Total Protein Albumin Urine Color Urine Clarity Urine pH Ur Specific [place] Urine Protein Urine Glucose (UA) Urine Ketones Urine Occult Blood Urine Nitrate Urine Bilirubin Urine Urobilinogen Ur Leukocyte Esterase Urine RBC Urine WBC Urine WBC Clumps Urine Bacteria Urine Mucus Micro UA Comment Ur Microscopic Review Urine Culture Comments 04/13/18 04/13/18 04/13/18 00:07 03:10 03:15 WBC 5.3 RBC 2.51 L Hgb 7.7 L Hct 23.0 L MCV 91.8 MCH 30.5 MCHC 33.2 RDW 16.5 Plt Count 108 L MPV 6.8 L Neut % (Auto) 89.2 H Lymph % (Auto) 6.0 L [place] % (Auto) 4.2 Eos % (Auto) 0.4 Baso % (Auto) 0.2 Neut # (Auto) 4.7 Lymph # (Auto) 0.3 L [place] # (Auto) 0.2 Eos # (Auto) 0.0 Baso # (Auto) 0.0 WBC Differential . Differential Comment Auto diff final Sodium Potassium Chloride Carbon Dioxide Anion Gap BUN Creatinine Estimated GFR POC Glucose 237 H Random Glucose Lactic Acid Calcium Total Bilirubin AST ALT Alkaline Phosphatase Total Protein Albumin Urine Color Yellow Urine Clarity Cloudy H Urine pH 7.0 Ur Specific [place] 1.015 Urine Protein 300 or greater H Urine Glucose (UA) Negative Urine Ketones Negative Urine Occult Blood Large H Urine Nitrate Negative Urine Bilirubin Negative Urine Urobilinogen 0.2 Ur Leukocyte Esterase Moderate H Urine RBC 17 H Urine WBC 54 H Urine WBC Clumps Occasional H Urine Bacteria Occasional H Urine Mucus Few H Micro UA Comment Cath-culture ind Ur Microscopic Review Not Reportable Urine Culture Comments Cath-cult indicated 04/13/18 04/13/18 04/13/18 03:15 03:15 03:28 WBC RBC Hgb Hct MCV MCH MCHC RDW Plt Count MPV Neut % (Auto) Lymph % (Auto) [place] % (Auto) Eos % (Auto) Baso % (Auto) Neut # (Auto) Lymph # (Auto) [place] # (Auto) Eos # (Auto) Baso # (Auto) WBC Differential Differential Comment Sodium 137 Potassium 3.5 Chloride 103 Carbon Dioxide 24.9 Anion Gap 9 BUN 17 Creatinine 1.12 H Estimated GFR 59 L POC Glucose 98 Random Glucose 97 Lactic Acid 2.3 H Calcium 8.1 L Total Bilirubin 0.3 AST 69 H ALT 72 H Alkaline Phosphatase 174 H Total Protein 6.3 L Albumin 1.6 L Urine Color Urine Clarity Urine pH Ur Specific [place] Urine Protein Urine Glucose (UA) Urine Ketones Urine Occult Blood Urine Nitrate Urine Bilirubin Urine Urobilinogen Ur Leukocyte Esterase Urine RBC Urine WBC Urine WBC Clumps Urine Bacteria Urine Mucus Micro UA Comment Ur Microscopic Review Urine Culture Comments 04/13/18 04/13/18 04/13/18 06:01 06:13 07:16 WBC RBC Hgb Hct MCV MCH MCHC RDW Plt Count MPV Neut % (Auto) Lymph % (Auto) [place] % (Auto) Eos % (Auto) Baso % (Auto) Neut # (Auto) Lymph # (Auto) [place] # (Auto) Eos # (Auto) Baso # (Auto) WBC Differential Differential Comment Sodium Potassium Chloride Carbon Dioxide Anion Gap BUN Creatinine Estimated GFR POC Glucose 55 L 58 L 88 Random Glucose Lactic Acid Calcium Total Bilirubin AST ALT Alkaline Phosphatase Total Protein Albumin Urine Color Urine Clarity Urine pH Ur Specific [place] Urine Protein Urine Glucose (UA) Urine Ketones Urine Occult Blood Urine Nitrate Urine Bilirubin Urine Urobilinogen Ur Leukocyte Esterase Urine RBC Urine WBC Urine WBC Clumps Urine Bacteria Urine Mucus Micro UA Comment Ur Microscopic Review Urine Culture Comments - Imaging Impressions Chest X-Ray 04/13/18 00:00 CONCLUSION: No acute cardiopulmonary disease. - Procedures EGD PROCEDURE REPORT EXAM DATE: 03/17/2018 IMPRESSIONS: 1. The esophagus appeared normal 2. Large blood clot covering 2/3rds of the stomach. No active bleeding. Suctioned as much as possible 3. Large non-bleeding ulcer, ranging between 5-9mm in size, was found in the duodenal bulb; Argon plasma coagulation was applied to the site; with complete hemostasis achieved 4. Retroflexed views revealed large blood clot EGD PROCEDURE REPORT EXAM DATE: 03/19/2018 IMPRESSIONS: 1. The esophagus appeared normal 2. Two large ulcers, measuring 20 x 30mm in size, were found in the gastric body, on the lesser curvature of the stomach, and in the gastric antrum 3. Two ulcers ranging between 3-5 mm in size were found in the 1st part of the duodenum 4. Retroflexed views revealed no abnormalities RECOMMENDATIONS: 1. Anti-reflux regimen 2. Continue PPI 3. If rebleeds needs IR consultation with L gastric artery embolization PATIENT CONDITION: stable DISPOSITION: Inpatient REPEAT EXAM: Return 1 month EGD Bailey Trevizo MD eSigned: Bailey Trevizo MD 03/19/2018 12:13 PM Assessment and Plan - Assessment (1) Abdominal pain Code(s): R10.9 - Unspecified abdominal pain Status: Resolved (2) Acute GI bleeding Code(s): K92.2 - Gastrointestinal hemorrhage, unspecified Status: Acute (3) Acute hypotension Code(s): I95.9 - Hypotension, unspecified Status: Acute (4) Upper GI bleed Code(s): K92.2 - Gastrointestinal hemorrhage, unspecified Status: Acute (5) Cervical cancer Code(s): C53.9 - Malignant neoplasm of cervix uteri, unspecified Status: Chronic (6) Diabetes Code(s): E11.9 - Type 2 diabetes mellitus without complications Status: Chronic (7) Chronic back pain Code(s): M54.9 - Dorsalgia, unspecified; G89.29 - Other chronic pain Status: Chronic (8) Hypertension Code(s): I10 - Essential (primary) hypertension Status: Chronic - Plan 63 y/o AAM with PMHx of DM and Metastatic Cervical Cancer admitted for inpatient management of upper GI bleed, now resolved, patient now pending placement. Continue rehab efforts. Sepsis Fever 101- last eveing Hypotension- last evening Diarrhea - no WBC elevation, CXR negative + abdominal discomfort - check CT of abdomen - lots of liquid stools - check c diff -continue on IVF 125 cc/hr - Hold Reglan -ID consult - start IV flagyl Pyuria on repeat UA- catheterized specimen- 04/13 - last culture- no growth - ff final C and s Anemia, acute blood loss- resolved - no acute blood loss s/p blood transfusion of 6U pRBC's previously this admission on PPI 40 mg bid Patine followed by GI. Repeat EGD on 04/04 showed possible esophagitis, gastric and duodenal ulcers. No active bleeding. H&H pending Previous Upper GI bleed EGD on 03/19 showed large 2 x 3 cm ulcer, had planned for rpt EGD in 1mth Repeat EGD findings as noted above. Continue PPI, Carafate Appreciate gastroenterology recommendations If continued bleeding, may consider bleeding scan. Shingles, resolved. Postherpetic neuralgia. s/p 7-day course of Valtrex and topical Acyclovir, stopped on 04/04 Patient is having postherpetic neuralgia. Started Gabapentin.- will increase dose Pain is better controlled. Continue Percocet as needed. Metastatic Cervical Cancer Patient to continue outpatient chemotherapy when ready. Pain better controlled with Percocet. Type 2 Diabetes Mellitus Accu-Cheks with sliding scale insulin coverage Blood sugar stable Diabetic diet DVT Prophylaxis: SCD's Dispo: SNF Acute urinary retention - paz placed 04/11 LOWer extremity edema- Left -> right - check doppler for DVT, left Code Status: full Discharge Planning: No benefit for nursing home facility placement. Daily physical therapy ADD: Extensive DVT left LE Lovenox 60 mg SQ x 1 now then consult hematology for recommendation with GIB history ? IVC filter candidate and ideal anticoagulant- Heparin vs Lovenox H and H dropped slightly - no active bleeding, stools wali colored - give 1 unit RBC d/w GI- Dr Soares- re- extensive DVT - prefers Heparin drip bolus and drip instead of Lovenox- in pancho event that bleed- can be reversed - consult Hematology for recommendations- newer OAC- ? eliquis (1) Abdominal pain Qualifiers: Abdominal location: generalized Qualified Code(s): R10.84 - Generalized abdominal pain (5) Cervical cancer Qualifiers: Malignant neoplasm of cervix location: unspecified location Qualified Code(s) : C53.9 - Malignant neoplasm of cervix uteri, unspecified
--- NOTE | 2018-04-13 12:41 | P.CONID ---
History of Present Illness Service: Infectious disease Consult date: 04/13/18 Requesting Physician: Sandy Peterson Reason for Consult: Evaluate patient with fever Primary Care Provider: PROVIDER NON STAFF History of Present Illness: Patient seen and examined. Records reviewed. Patient is a 63-year-old female, has history of metastatic cervical cancer, was apparently being seen by her oncologist and she was noted to be hypotensive. She was also complaining of abdominal pain and multiple loose dark stools of 1 day duration. She was admitted to the hospital, and had GI workup. She had 2 upper endoscopy and had shown duodenal ulcer and gastric ulcers. Looks like her hemoglobin has stabilized. Patient still complains of abdominal pain. Patient on admission was also given Rocephin for UTI. She was also treated for shingles in her left flank and received a course of Valtrex. Patient was initially in the ICU and stabilized and has been in the medical service. Since April 07 patient has had intermittent fevers. Today the fevers have been more persistent, and she was also noted to be having a lot of diarrhea. She continues to have abdominal pain. She has some coughing, but chest x-ray is normal. Patient also had urinary retention, and a Paz catheter was placed yesterday. Urinalysis is showing pyuria. 2 blood cultures were done and those are still pending. Infectious disease consultation has been requested to assist with evaluation and treatment. Review of Systems Constitutional: Reports anorexia, Reports chills, Reports fever(s), Reports lack of energy Eyes: Denies discharge, Denies dry eyes Ears, Nose, Mouth, and Throat: Denies difficulty swallowing, Denies lip swelling , Denies nasal discharge, Denies pain with swallowing, Denies sore throat Cardiovascular: Denies chest pain, Denies shortness of breath Respiratory: Reports cough, Denies chest congestion, Denies shortness of breath Gastrointestinal: Reports abdominal pain, Reports incontinent of stools, Reports loose stools, Denies nausea, Denies pain with swallowing, Denies vomiting Genitourinary: Reports difficulty urinating Musculoskeletal: Denies joint pain, Denies joint swelling Skin/Breast: Denies rash PMFSH - History History Provided By: Patient, Family Member - Medical History Medical History: Medical History (Last Reviewed 04/13/18 @ 12:35 by Akua Valentine MD) Diabetes (Chronic) Asthma Cancer - Surgical History Surgical History: Surgical History (Last Reviewed 04/13/18 @ 12:35 by Akua Valentine MD) Hx of cataract removal with insertion of prosthetic lens Hx of tonsillectomy - Family History Family History: Family History (Last Reviewed 04/13/18 @ 12:35 by Akua Valentine MD) Other Family history not known due to adoption - Tobacco History Second Hand Smoke Exposure: No Tobacco Use In Past 30 Days: No Smoking Status: Former smoker Tobacco Type: Cigarettes - Alcohol History How Often Do You Have a Drink Containing Alcohol: Never - Substance Use History Substance History: No History of Abuse - Travel History Recent Travel in the [place] Within the Last 8 Weeks: No Recent Travel Out of the Country Within the Last 8 Weeks: No - Immunization History Tetanus Immunization: >5 Years Hx Influenza Vaccine This Season: Yes Medications and Allergies Active Medications: Active Medications Albuterol (Duoneb Neb (Prn)) 1 ampul NEB Q2HR NEB PRN PRN Reason: WHEEZING Last Admin: 03/20/18 20:31 Dose: 1 ampul Bisacodyl (Dulcolax Supp) 10 mg RECTAL DAILY PRN PRN Reason: SEVERE CONSITIPATION Dextrose (D50w Vial) 50 ml IV.PUSH UNSCH PRN PRN Reason: PER HYPOGLYCEMIA PROTOCOL Diphenhydramine HCl (Benadryl) 25 mg PO Q4H PRN PRN Reason: SEE LABEL COMMENTS Gabapentin (Neurontin) 300 mg PO TID SAMANTHA Last Admin: 04/13/18 08:20 Dose: 300 mg Glucagon (Glucagon Inj) 1 mg OTHER PRN PRN PRN Reason: for Hypoglycemia Protocol Acetaminophen (Ofirmev Inj) 1,000 mg in 100 mls @ 400 mls/hr IV.SIG Q6H PRN PRN Reason: PAIN SCALE 1 TO 10 Last Infusion: 04/13/18 02:23 Dose: Infused Sodium Chloride (Ns Inj) 1,000 mls @ 125 mls/hr IV.CONT .Q8H SAMANTHA Last Admin: 04/13/18 03:22 Dose: 125 mls/hr Metronidazole/Sodium Chloride (Flagyl 500 Mg Inj) 100 mls @ 100 mls/hr IV.SIG Q6H SAMANTHA Insulin Human Regular (Novolin R [place] Sugar Inj) 0 units SQ Q6HR SAMANTHA; Protocol Last Admin: 04/13/18 12:12 Dose: Not Given Lactulose (Lactulose Liq) 30 ml PO DAILY PRN PRN Reason: SEVERE CONSITIPATION Ondansetron HCl (Zofran Inj) 4 mg IV.PUSH Q6H PRN PRN Reason: nausea/vomiting Last Admin: 03/29/18 04:37 Dose: 4 mg Oxycodone/Acetaminophen (Percocet 7.5/325 Mg) 1 tab PO Q6H PRN PRN Reason: PAIN SCALE 6 TO 10 Last Admin: 04/13/18 06:39 Dose: 1 tab Pantoprazole Sodium (Protonix) 40 mg PO BID [facility] Last Admin: 04/13/18 08:20 Dose: 40 mg Sodium Chloride (Ns Flush) 2 ml IV.FLUSH BID [facility] Last Admin: 04/13/18 08:20 Dose: 2 ml Sodium Chloride (Ns Flush) 2 ml IV.FLUSH PRN PRN PRN Reason: FLUSH AFTER USING IV ACCESS Sucralfate (Carafate) 1 gm PO ACHS [facility] Last Admin: 04/13/18 08:20 Dose: 1 gm Allergies Allergy/AdvReac Type Severity Reaction Status Date / Time No Known Allergies Allergy Verified 03/03/18 15:28 Home Medications Medication Instructions Recorded Confirmed Type ibuprofen 800 mg PO TID 03/03/18 03/16/18 History Exam Vital signs: Vital Signs 04/12/18 15:45 04/12/18 16:00 04/12/18 20:00 Temperature 101.1 F H 101.6 F H Pulse Rate 98 H 98 H 103 H Respiratory Rate 18 18 Blood Pressure 109/61 84/50 L Pulse Oximetry 97 95 04/12/18 23:38 04/13/18 00:00 04/13/18 01:51 Temperature 100.9 F H 101.0 F H Pulse Rate 88 101 H 102 H Respiratory Rate 18 20 20 Blood Pressure 89/53 L 89/51 L 89/53 L Pulse Oximetry 95 96 98 04/13/18 05:07 04/13/18 07:57 04/13/18 11:46 Temperature 98.4 F 97.5 F L 99.4 F Pulse Rate 91 H 75 94 H Respiratory Rate 20 18 18 Blood Pressure 89/52 L 104/57 L 102/56 L Pulse Oximetry 98 98 95 Intake & Output 11/06/2904/13/18 04/13/18 18:59 06:59 18:59 Intake Total 60 / 60 1040 / 1040 500 / 500 Output Total 2150 / 2150 1600 / 1600 600 / 600 Balance -2090 / -2090 -560 / -560 -100 / -100 Intake: IV 600 / 600 500 / 500 Ofirmev Inj 1,000 mg In 100 ml 100 / 100 @ 400 mls/hr IV.SIG Q6H PRN Rx# :[id number] NS Inj 500 ML @ 30 mls/hr IV. 500 / 500 500 / 500 SIG .Q10H SAMANTHA Rx#:[id number] Oral 60 / 60 440 / 440 Output: Urine 2150 / 2150 1600 / 1600 600 / 600 Other: # Voids 2 Date of Last Bowel Movement 04/12/18 04/12/18 # Bowel Movements 1 # Incontinent Bowel Movements 1 Narrative: Physical examination GENERAL: Patient is a chronically ill appearing, well-developed female, awake and alert, not in respiratory distress. SKIN: Warm and dry. No generalized rash, no ecchymoses and no evidence of embolic lesions. HEAD: Atraumatic. Normocephalic. No temporal wasting, or tenderness. EYES: [place] conjunctiva. No petechia or hemorrhage. Pupils equal, round and reactive to light. Extraocular movements full and intact. No scleral icterus. No injection or drainage. EARS, NOSE AND THROAT: Nose without bleeding or purulent nasal discharge. No sinus tenderness. Mucous membranes pink and moist. No oral lesions noted. No exudate. No oral thrush. NECK: Trachea midline. Supple and not tender, no meningeal signs CARDIOVASCULAR: Regular rate and rhythm. No murmurs, rubs or gallops heard RESPIRATORY: Clear to auscultation. Breath sounds equal bilaterally. No rales , wheezing or rhonchi. Decreased breath sounds at bases. Port in R upper chest , accessed, not tender, no redness, tunnelled portion looks ok ABDOMEN: Soft, diffuse tenderness, nondistended. Bowel sounds present and normoactive. No guarding. No rebound. No organomegaly. EXTREMITIES: No clubbing, cyanosis. LLE is markedly larger compared to RLE, no calf tenderness, no Tin's sign. : Paz cath in place, urine looks clear NEUROLOGICAL: Awake and alert. Cranial nerves grossly intact. Motor grossly within normal limits. PSYCHIATRIC: Normal affect, calm and cooperative. LINE: Port no evidence of infection Results - Labs CBC & Chem 7: 04/13/18 03:15 04/13/18 03:15 Labs: Laboratory Results - last 24 hr 04/12/18 04/12/18 04/12/18 12:32 17:14 20:45 WBC RBC Hgb Hct MCV MCH MCHC RDW Plt Count MPV Neut % (Auto) Lymph % (Auto) Ness % (Auto) Eos % (Auto) Baso % (Auto) Neut # (Auto) Lymph # (Auto) Ness # (Auto) Eos # (Auto) Baso # (Auto) WBC Differential Differential Comment Sodium Potassium Chloride Carbon Dioxide Anion Gap BUN Creatinine Estimated GFR POC Glucose 134 H 152 H 209 H Random Glucose Lactic Acid Calcium Total Bilirubin AST ALT Alkaline Phosphatase Total Protein Albumin Urine Color Urine Clarity Urine pH Ur Specific [place] Urine Protein Urine Glucose (UA) Urine Ketones Urine Occult Blood Urine Nitrate Urine Bilirubin Urine Urobilinogen Ur Leukocyte Esterase Urine RBC Urine WBC Urine WBC Clumps Urine Bacteria Urine Mucus Micro UA Comment Ur Microscopic Review Urine Culture Comments 04/13/18 04/13/18 04/13/18 00:07 03:10 03:15 WBC 5.3 RBC 2.51 L Hgb 7.7 L Hct 23.0 L MCV 91.8 MCH 30.5 MCHC 33.2 RDW 16.5 Plt Count 108 L MPV 6.8 L Neut % (Auto) 89.2 H Lymph % (Auto) 6.0 L Ness % (Auto) 4.2 Eos % (Auto) 0.4 Baso % (Auto) 0.2 Neut # (Auto) 4.7 Lymph # (Auto) 0.3 L Ness # (Auto) 0.2 Eos # (Auto) 0.0 Baso # (Auto) 0.0 WBC Differential . Differential Comment Auto diff final Sodium Potassium Chloride Carbon Dioxide Anion Gap BUN Creatinine Estimated GFR POC Glucose 237 H Random Glucose Lactic Acid Calcium Total Bilirubin AST ALT Alkaline Phosphatase Total Protein Albumin Urine Color Yellow Urine Clarity Cloudy H Urine pH 7.0 Ur Specific [place] 1.015 Urine Protein 300 or greater H Urine Glucose (UA) Negative Urine Ketones Negative Urine Occult Blood Large H Urine Nitrate Negative Urine Bilirubin Negative Urine Urobilinogen 0.2 Ur Leukocyte Esterase Moderate H Urine RBC 17 H Urine WBC 54 H Urine WBC Clumps Occasional H Urine Bacteria Occasional H Urine Mucus Few H Micro UA Comment Cath-culture ind Ur Microscopic Review Not Reportable Urine Culture Comments Cath-cult indicated 04/13/18 04/13/18 04/13/18 03:15 03:15 03:28 WBC RBC Hgb Hct MCV MCH MCHC RDW Plt Count MPV Neut % (Auto) Lymph % (Auto) Ness % (Auto) Eos % (Auto) Baso % (Auto) Neut # (Auto) Lymph # (Auto) Ness # (Auto) Eos # (Auto) Baso # (Auto) WBC Differential Differential Comment Sodium 137 Potassium 3.5 Chloride 103 Carbon Dioxide 24.9 Anion Gap 9 BUN 17 Creatinine 1.12 H Estimated GFR 59 L POC Glucose 98 Random Glucose 97 Lactic Acid 2.3 H Calcium 8.1 L Total Bilirubin 0.3 AST 69 H ALT 72 H Alkaline Phosphatase 174 H Total Protein 6.3 L Albumin 1.6 L Urine Color Urine Clarity Urine pH Ur Specific [place] Urine Protein Urine Glucose (UA) Urine Ketones Urine Occult Blood Urine Nitrate Urine Bilirubin Urine Urobilinogen Ur Leukocyte Esterase Urine RBC Urine WBC Urine WBC Clumps Urine Bacteria Urine Mucus Micro UA Comment Ur Microscopic Review Urine Culture Comments 04/13/18 04/13/18 04/13/18 06:01 06:13 07:16 WBC RBC Hgb Hct MCV MCH MCHC RDW Plt Count MPV Neut % (Auto) Lymph % (Auto) Ness % (Auto) Eos % (Auto) Baso % (Auto) Neut # (Auto) Lymph # (Auto) Ness # (Auto) Eos # (Auto) Baso # (Auto) WBC Differential Differential Comment Sodium Potassium Chloride Carbon Dioxide Anion Gap BUN Creatinine Estimated GFR POC Glucose 55 L 58 L 88 Random Glucose Lactic Acid Calcium Total Bilirubin AST ALT Alkaline Phosphatase Total Protein Albumin Urine Color Urine Clarity Urine pH Ur Specific [place] Urine Protein Urine Glucose (UA) Urine Ketones Urine Occult Blood Urine Nitrate Urine Bilirubin Urine Urobilinogen Ur Leukocyte Esterase Urine RBC Urine WBC Urine WBC Clumps Urine Bacteria Urine Mucus Micro UA Comment Ur Microscopic Review Urine Culture Comments 04/13/18 11:46 WBC RBC Hgb Hct MCV MCH MCHC RDW Plt Count MPV Neut % (Auto) Lymph % (Auto) Ness % (Auto) Eos % (Auto) Baso % (Auto) Neut # (Auto) Lymph # (Auto) Ness # (Auto) Eos # (Auto) Baso # (Auto) WBC Differential Differential Comment Sodium Potassium Chloride Carbon Dioxide Anion Gap BUN Creatinine Estimated GFR POC Glucose 138 H Random Glucose Lactic Acid Calcium Total Bilirubin AST ALT Alkaline Phosphatase Total Protein Albumin Urine Color Urine Clarity Urine pH Ur Specific [place] Urine Protein Urine Glucose (UA) Urine Ketones Urine Occult Blood Urine Nitrate Urine Bilirubin Urine Urobilinogen Ur Leukocyte Esterase Urine RBC Urine WBC Urine WBC Clumps Urine Bacteria Urine Mucus Micro UA Comment Ur Microscopic Review Urine Culture Comments - Imaging Impressions Chest X-Ray 04/13/18 00:00 CONCLUSION: No acute cardiopulmonary disease. Assessment and Plan - Plan Impression Fevers since 04/07 - has (+) UA, urinary retention, now with paz - has diarrhea, R/O C diff R/O DVT LLE Recent GIB has DU and Metastatic cervical CA Recommendation Agree with workup BC and UC Stool for C diff US LLE R/O DVT PO Vanco for C diff Cefepime and Diflucan for coverage Follow temps Follow C/S Monitor progress I will determine course of treatment once workup is completed I will follow along with you Thank you for this consultation D/W Dr Peterson (HEPAS)
[2018-04-13] MEDS: Fluconazole 100 MG Tablet PO SCH (13:32)
--- NOTE | 2018-04-13 13:41 | US ---
EXAM DATE: 04/13/2018 1:36 PM EDT AGE/SEX: 63 years / Female INDICATIONS: Left leg swelling and pain. CLINICAL DATA: This is the patient's initial encounter. Patient reports that signs and symptoms have been present for 4 - 6 days and indicates a pain score of 3/10. MEDICAL/SURGICAL HISTORY: . Metastatic cervical cancer. Diabetes. Asthma. . Endoscopy. Tonsil lectomy. COMPARISON: [facility] [place]EL[place]/O CONTRAST, 03/16/2018. . TECHNIQUE: Venous ultrasound of both lower extremities was performed from the inguinal ligament to t he proximal calf. Real-time, color Doppler and spectral tracing, compression and augmentation techni ques were used. FINDINGS: There is occlusive thrombus noted throughout the femoral, popliteal and tibial veins. Ther e is also occlusive thrombus noted in the peripheral external iliac vein. CONCLUSION: 1. Massive iliofemoral left lower extremity DVT. The central component of the iliac thrombosis is no t visualized. Therefore, more central extension of thrombus into the common iliac vein or IVC cannot be excluded. Electronically signed by: Ken Camacho MD 04/13/2018 1:40 PM EDT
--- NOTE | 2018-04-13 15:29 | P.DIET ---
Nutritional Evaluation Type of nutrition evaluation: initial Nutrition consult regarding: Diet Evaluation Nutrition screening: [facility] [place] Screening comments: 04/12/[address] [facility] [place] Poor PO Intake Subjective Subjective Comments: Pt visited-partially eaten lunch tray in room w/approx. 25% po. Pt says she likes dairy products. Objective - Diagnosis GI Bleed - Objective % IBW: 104 Body Weight Used for Calculations: Actual (64 kg) Energy Needs - Lower Range (kCal/kg): 25 Energy Needs - Upper Range (kCal/kg): 30 Lower Limit kCal/kg (kCals): 1,600 Upper Limit kCal/kg (kCals): 1,920 Lower Limit Protein Factor (Grams per Kg): 1.0 Upper Limit Protein Factor (Grams per Kg): 1.3 Lower Protein Needs (Protein): 64 Upper Protein Needs (Protein): 83 Dietitian Reviewed in Medical Record: Current diet, Curent medications, Intake & Output, Labs Diet Order: Cardiac Diet Oral Diet Intake Amount: Fair 50-75% Objective Comments: PMH includes: Asthma, Cancer, DM, Metastatic Cervical Cancer Labs include: Creatinine 1.12, estGFR 59, Random Glucose 97, albumin 1.6 Assessment Assessment: Pt is at nutritional risk r/t diagnosis and poor po intake. Rec liberalizing diet. Glucose WNL-monitor. Pt c/o abdominal discomfort and liquid stools; C- Diff pending. Hold on oral nutritional supplements for now. Pt reports that she tolerates dairy products-plan to include milk and yogurt w/meals. Labs reviewed. Dietitian will follow. Recommendations: 1. Rec liberalizing diet 2. monitor glucose 3. pt w/ liquid stools; C-Diff pending-Hold on oral nutritional supplements for now 4. Pt reports that she tolerates dairy products-plan to include milk and yogurt w/meals 5. Dietitian will follow Dietitian to Monitor: Lab values, Renal labs, Glucose level, Intake & Output, Diet tolerance, Weight change, PO Intake, Medical course
[2018-04-13] MEDS ORDERED: Heparin 10,000 UNITS/10 ML Vial (for IV use) IV.PUSH STA (16:48)
[2018-04-13] MEDS ORDERED: Enoxaparin Inj 60 MG/0.6 ML Syringe SQ ONE (17:00)
[2018-04-13] MEDS: Heparin Drip 25,000 UNIT/250 ML BAG IV.CONT PRN (18:32)
--- NOTE | 2018-04-13 20:12 | CT ---
EXAM DATE: 04/13/2018 8:00 PM EDT AGE/SEX: 63 years / Female INDICATIONS: Abdominal pain. CLINICAL DATA: This is the patient's initial encounter. Patient reports that signs and symptoms have been present for 1 day and indicates a pain score of 0/10. MEDICAL/SURGICAL HISTORY: Diabetes. Cancer. Chemotherapy. Tonsillectomy. RADIATION DOSE: 6.80 CTDI (mGy) COMPARISON: [facility] [place]EL[place] W/O CONTRAST, 03/16/2018. . TECHNIQUE: Multiple contiguous axial images were obtained through the abdomen. Images were obtained using multiple row detector helical technique. Using automated exposure control and adjustment of the mA and/or kV according to patient size, radiation dose was kept as low as reasonably achievable to o btain optimal diagnostic quality images. DICOM format image data is available electronically for rev iew and comparison. FINDINGS: Comparison is March 16, 2018. Lung bases reveal a 9 mm nodule in the left lower lobe slightly larger than previous measurement of 8 mm. There is a 5 mm nodule right lower lobe posteriorly which was not seen on the prior exam. Linear opacities in the middle lobe and lingula probably represent scarring or atelectasis. Ureteral stents are in place bilaterally unchanged in appearance since March. Mild dilatation of th e renal collecting systems is relatively stable. There is a loculated air and fluid collection in the deep left hemipelvis which is similar in size an d appearance to March 2018 and measures around 5.7 x 3.8 cm. There is moderate anasarca which has w orsened slightly since the prior exam. Mild periaortic retroperitoneal adenopathy is relatively stabl e. Degenerative changes in the spine are stable with a mild rotatory levoscoliosis. CONCLUSION: 1. Stable appearance of bilateral ureteral stents. Stable mild dilatation of the renal collecting sy stems. 2. Stable to slight improvement of loculated air and fluid collection in the deep left hemipelvis, p ossibly an abscess. 3. Moderate anasarca, slightly worse than on prior exam. 4. Pulmonary nodules at both lung bases as above, increased in size from March. 5. Moderate coronary calcifications. Electronically signed by: Dago Rowell MD 04/13/2018 8:10 PM EDT
[2018-04-13] MEDS ORDERED: Morphine Sulfate Inj 2 MG/ML Vial IV.PUSH PRN (20:52)
[2018-04-13] MEDS ORDERED: Heparin 10,000 UNITS/10 ML Vial (for IV use) IV.PUSH PRN ×2 (23:09)
--- NOTE | 2018-04-13 23:17 | MB ---
cc: Eloise Benítez MD,Sandy Zavaleta MD DATE: 04/13/2018 REFERRING PHYSICIAN: Sandy Peterson MD CHIEF COMPLAINT: Dr. Peterson requests a consultation for Ms. Salmeron regarding newly diagnosed left lower extremity extensive deep vein thromboses. HISTORY OF PRESENT ILLNESS: Ms. Salmeron is a 63-year-old woman, well known patient to Dr. Anai Marks and Dr. Jose. She has a history of locally advanced cervical cancer. 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 She is subsequently on Taxol weekly. She was admitted to the hospital initially for abdominal pain. Her course was complicated by urinary obstruction from the pelvic mass. She had ureteral stents placed by Dr. Gallardo. She was seen by Dr. Marks. She remains hopeful about treatment of her multifocal cervical cancer. She presented in the emergency room on 03/16/2018 with hypotension, left-sided abdominal pain, black tarry stool and generalized weakness. She had a GI bleed. Upper endoscopy by Dr. Trevizo performed on 03/17/2018 showed a large blood clot covering 2/3 of the stomach, a large nonbleeding ulcer ranging 5-9 mm in the duodenal bulb. This was coagulated. Hemostasis was achieved. She was continued on a proton pump inhibitor. On 04/04/2018, an EGD was performed by Dr. Soares. Gastric ulcers and duodenal ulcers are seen. There is abnormal esophageal mucosa with possible esophagitis. Ms. Salmeron reports swelling in her leg for some time. Venous ultrasound on 04/13/2018 showed a massive iliofemoral left lower extremity deep vein thromboses. The central component of the iliac thrombosis is not visualized. CT scan of the abdomen and pelvis is significant for stable bilateral ureteral stents. There is a slight improvement of the loculated fluid collection in the deep left hemipelvis. There is moderate anasarca, worse than prior exam. There is pulmonary nodules at both lung bases, which have increased in size. On diagnosis of the deep vein thromboses, she was started on Lovenox and switched to unfractionated heparin in light of the increased risk for GI bleeding. She is receiving a transfusion for a hemoglobin of 7.7. Hematology/Oncology is consulted regarding the recommendations for anticoagulant therapy versus inferior vena cava filter placement. Review of the electronic medical record shows a chronic anemia with hemoglobin around 8, drifting down occasionally to 7, at which time she is transfused. Her platelet counts have been lower than the lower limits of normal since 04/05/2018. Her admission, platelet count was 224,000. White count is normal. PTT at baseline was normal. Renal function is mildly decreased. Liver function is slightly elevated. PAST MEDICAL HISTORY: Asthma, cataracts, COPD, coronary artery disease, diabetes, renal insufficiency, hypertension, locally advanced cervical cancer/metastatic cervical cancer, peptic ulcer disease, gastric ulcer, anemia. PAST SURGICAL HISTORY: Cataract surgery, laparoscopic repair of perforated gastric ulcer, upper endoscopy, tonsillectomy, colonoscopy. ALLERGIES: NO KNOWN DRUG ALLERGIES. FAMILY HISTORY: No significant family history of cancer. SOCIAL HISTORY: She is single. She quit smoking a year ago. She denies any alcohol drinking. MEDICATIONS: 1. Tylenol. 2. DuoNebs. 3. Dulcolax. 4. Cefepime. 5. Fluconazole. 6. Neurontin. 7. Unfractionated heparin. 8. Zofran. 9. Percocet p.r.n. 10. Protonix. 11. Normal saline. 12. Vancomycin orally . 13. Carafate. PHYSICAL EXAMINATION: VITAL SIGNS: Temperature 99.1, T-max 101.2, heart rate 93, respiratory rate 20, blood pressure 104/58, saturation 98%. GENERAL: Ms. Salmeron is a well-developed, well-nourished woman. She looks chronically ill. HEENT: Her pupils are round, reactive to light and accommodation. Oropharynx is clear. NECK: Supple. LUNGS: Clear anteriorly. CARDIOVASCULAR: Reveals tachycardia. ABDOMEN: Mildly tender, nondistended. LOWER EXTREMITIES: With asymmetry, the left leg is larger than the right. There is a chronic osteoarthritic changes of both knees. LABORATORY DATA: Labs as described above. ASSESSMENT AND PLAN: Ms. Salmeron is a 63-year-old woman with metastatic cervical cancer. Her attempted treatment with chemotherapy was complicated by gastrointestinal bleeding. She has had a prolonged hospitalization with various complications. She has had ureteral stents placed for renal insufficiency due to obstruction. She has a gastrointestinal bleed. She has chronic anemia and thrombocytopenia. She has had fevers. Infectious disease is consulted. Hematology/oncology is consulted for the new left lower extremity deep vein thrombosis. She has an extensive clot. She has mass in the left pelvis as well. This likely contributes to the stasis and decrease in the left leg venous blood flow. We had a lengthy discussion about the risks and benefits of anticoagulant therapy needed for the left lower extremity deep vein thromboses. It seems rather acute. She has a significant risk factor such as her cancer, the prolonged hospitalization and being quite sedentary. She is a need of anticoagulant therapy and I concur with Dr. Soares to proceed with unfractionated heparin as it can be stopped in case bleeding occurs. She is at high risk for bleeding. She is diagnosed with the gastric and duodenal ulcers in the beginning of the month and has not yet resolved completely, most recent upper endoscopy. So far she is tolerating the unfractionated heparin titrated. We discussed continuing this over the next 24 hours. At the moment, there is no absolute contraindication to anticoagulant therapy. She has no symptoms of a thrombotic event to the lung. Echocardiogram to evaluate the right heart will be performed. We discussed the risk of thromboembolic event in light of the extensive nature of the clot. We discussed the risk associated with the inferior vena cava filter placement. We have elected to defer the inferior vena cava filter placement unless overt bleeding is identified. We will continue to follow the hemoglobin. We will monitor closely for any signs of bleeding. Her questions and her daughter's questions were answered to their satisfaction. MD KRYSTIN Sims/gina , 09:09 PM , 09:26 PM
[2018-04-14] MEDS: Insulin NovoLIN Regular Correctional Sugar Inj SQ SCH ×4 (01:07→18:20)
[2018-04-14] MEDS: Sod Chloride 0.9% Inj 1,000 ML IV.CONT SCH ×4 (04:57→21:34)
[2018-04-14 06:27] LABS: Hematocrit 24.4 % (35.0-46.0); Hemoglobin 8.5 gm/dL (11.6-15.3); Mean Corpuscular HGB Conc 34.8 % (32.0-36.0); Mean Corpuscular Hemoglobin 31.3 pg (27.0-34.0); Mean Corpuscular Volume 89.8 fL (80.0-100.0); Mean Platelet Volume 6.8 fL (7.0-11.0); Platelet Count 118 th/mm3 (150-450); Red Blood Count 2.71 mil/mm3 (4.00-5.30); White Blood Count 5.4 th/mm3 (4.0-11.0)
[2018-04-14] MEDS: Sucralfate 1 GM Tablet PO SCH ×4 (09:55→21:25)
[2018-04-14] MEDS: Fluconazole 100 MG Tablet PO SCH (09:55)
[2018-04-14] MEDS: Gabapentin 300 MG Capsule PO SCH ×4 (09:56→23:28)
[2018-04-14] MEDS: Sodium Chloride 0.9% 2 ML Flush BID IV.FLUSH SCH ×2 (09:56→21:25)
--- NOTE | 2018-04-14 11:39 | ECHRPT ---
Indication: SOB/ LLE DVT CONCLUSIONS Normal left ventricular size. Wall thickness is normal. The left ventricular systolic function is low normal with an estimated ejection fraction in the rang e of 50- 55%. Trace mitral valve regurgitation. There is trace tricuspid valve regurgitation. The estimated pulmonary arterial pressure is 31 mmHg. BP: / HR: Rhythm: MEASUREMENTS (Male / Female) Normal Values Technical Quality: 2D ECHO LV Diastolic Diameter PLAX 4.9 cm 4.2 - 5.9 / 3.9 - 5.3 cm LV Systolic Diameter PLAX 3.9 cm IVS Diastolic Thickness 0.6 cm 0.6 - 1.0 / 0.6 - 0.9 cm LVPW Diastolic Thickness 0.6 cm 0.6 - 1.0 / 0.6 - 0.9 cm LV Relative Wall Thickness 0.3 RV Internal Dim ED PLAX 2.3 cm DOPPLER TR Peak Velocity 232.0 cm/s TR Peak Gradient 21.5 mmHg Right Atrial Pressure 10.0 mmHg Pulmonary Artery Systolic Pressu 31.5 mmHg Right Ventricular Systolic Press 31.5 mmHg FINDINGS LEFT VENTRICLE Normal left ventricular size. Wall thickness is normal. The left ventricular systolic function is low normal with an estimated ejection fraction in the rang e of 50- 55%. RIGHT VENTRICLE Normal right ventricular size and systolic function. LEFT ATRIUM The left atrial size is normal. RIGHT ATRIUM The right atrial size is normal. ATRIAL SEPTUM Normal atrial septal thickness without atrial level shunting by limited color doppler interrogation. AORTA The aortic root and proximal ascending aorta are normal in size on limited imaging. MITRAL VALVE Trace mitral valve regurgitation. AORTIC VALVE Trileaflet aortic valve. No aortic valve stenosis or regurgitation. TRICUSPID VALVE There is trace tricuspid valve regurgitation. The estimated pulmonary arterial pressure is 31 mmHg. PULMONARY VALVE No pulmonary valve regurgitation or stenosis. VESSELS The inferior vena cava is normal in size. PERICARDIUM No pericardial effusion. Philip Lomas MD (Electronically Signed) Final Date:14 April 2018 11:38
--- NOTE | 2018-04-14 13:00 | P.PN ---
Subjective Interval history: complain of some discomfort left side of the abdomen/back no nause aor vomiting Physical Exam Vital signs: Vital Signs 04/13/18 15:52 04/13/18 17:59 04/13/18 18:21 Temperature 99.8 F H 101.2 F H 98.5 F Pulse Rate 106 H 104 H 104 H Respiratory Rate 18 20 20 Blood Pressure 81/50 L 93/57 L 93/57 L Pulse Oximetry 98 97 97 04/13/18 18:23 04/13/18 20:00 04/13/18 21:04 Temperature 98.5 F 99.2 F 100.2 F H Pulse Rate 89 93 H Respiratory Rate 18 18 Blood Pressure 106/64 106/62 Pulse Oximetry 94 L 95 04/14/18 00:00 04/14/18 04:00 04/14/18 05:14 Temperature 99.3 F 100.1 F H Pulse Rate 86 84 Respiratory Rate 18 18 18 Blood Pressure 121/69 112/64 Pulse Oximetry 98 97 04/14/18 05:49 04/14/18 08:00 04/14/18 09:50 Temperature 98.9 F Pulse Rate 78 Respiratory Rate 18 18 17 Blood Pressure 109/60 Pulse Oximetry 96 04/14/18 12:00 Temperature 99.2 F Pulse Rate 83 Respiratory Rate 18 Blood Pressure 102/63 Pulse Oximetry 96 Intake & Output 04/13/18 04/14/18 04/14/18 18:59 06:59 18:59 Intake Total 2940 / 2940 2041 / 2042 Output Total 600 / 600 400 / 400 Balance 2340 / 2340 2041 / 204 -400 / -400 Intake: IV 2700 / 2700 1200 / 1200 NS Inj 1,000 ML @ 125 mls/hr IV 1999 / 2000 1000 / 1000 .CONT .Q8H SAMANTHA Rx#:[id number] Ofirmev Inj 1,000 mg In 100 ml 100 / 100 100 / 100 @ 400 mls/hr IV.SIG Q6H PRN Rx# :[id number] Maxipime Inj 1,000 MG In NS Inj 100 / 100 100 / 100 100 ML @ 200 mls/hr IV.SIG Q12H SAMANTHA Rx#:[id number] NS Inj 500 ML @ 30 mls/hr IV. 500 / 500 SIG .Q10H SAMANTHA Rx#:[id number] Oral 240 / 240 442 / 442 Intake (Blood Product) Amt 0 / 0 400 / 400 Rbc As-3 Leukoreduced Unit 0 / 0 400 / 400 [id number] Output: Urine 600 / 600 400 / 400 Other: Date of Last Bowel Movement 04/13/18 04/13/18 04/13/18 # Incontinent Bowel Movements 1 Narrative: Elderly female, sitting comfortably in bed, in no acute distress SKIN: Left upper chest and back with healing shingle lesion. CARDIOVASCULAR: Regular rate and rhythm without murmurs, gallops, or rubs. RESPIRATORY: Breath sounds equal bilaterally. No accessory muscle use. GASTROINTESTINAL: Abdomen soft, non-tender, good bowel sounds, slightly distended but soft, MUSCULOSKELETAL: No cyanosis, left leg- swelling, no calf tenderness NEURO: AAO x3, no focal deficits, speech is clear. - Urinary Catheter Management Straight Cath placed during this visit: yes, but has since been removed by the nurse Reason for continuing: Acute urinary retention Insertion date: 03/16/18 Insertion time: 13:02 Removal date: 03/16/18 Removal time: 12:04 Indwelling Urethral Catheter Cath placed during this visit: yes Reason for continuing: Acute urinary retention Insertion date: 04/11/18 Insertion time: 15:30 PUREWIC Cath placed during this visit: no Reason for continuing: Acute urinary retention Results - Labs CBC & Chem 7: 04/14/18 06:15 04/13/18 03:15 Laboratory Results - last 24 hr 04/03/18 04/13/18 04/13/18 13:49 12:07 16:30 WBC RBC Hgb Hct MCV MCH MCHC RDW Plt Count MPV APTT POC Glucose Stl C.difficile DNA Amp Negative St C. diff Tox Epid 027 Negative Blood Type O Positive Antibody Screen Negative MTS Gel Crossmatch See Detail See Detail Bld Prod Order Comment 04/13/18 04/13/18 04/13/18 16:46 17:23 23:00 WBC RBC Hgb Hct MCV MCH MCHC RDW Plt Count MPV APTT 30.3 57.9 H D POC Glucose 149 H Stl C.difficile DNA Amp St C. diff Tox Epid 027 Blood Type Antibody Screen MTS Gel Crossmatch Bld Prod Order Comment 04/14/18 04/14/18 04/14/18 00:53 06:13 06:15 WBC 5.4 RBC 2.71 L Hgb 8.5 L Hct 24.4 L MCV 89.8 MCH 31.3 MCHC 34.8 RDW 16.0 Plt Count 118 L MPV 6.8 L APTT POC Glucose 151 H 121 H Stl C.difficile DNA Amp St C. diff Tox Epid 027 Blood Type Antibody Screen MTS Gel Crossmatch Bld Prod Order Comment 04/14/18 04/14/18 06:15 11:06 WBC RBC Hgb Hct MCV MCH MCHC RDW Plt Count MPV APTT 38.3 H D POC Glucose 129 H Stl C.difficile DNA Amp St C. diff Tox Epid 027 Blood Type Antibody Screen MTS Gel Crossmatch Bld Prod Order Comment Microbiology 04/13/18 04:27 Blood - Peripheral Aerobic Blood Culture - Preliminary No growth in 1 day 04/13/18 04:27 Blood - Peripheral Anaerobic Blood Culture - Preliminary No growth in 1 day 04/13/18 04:20 Blood - Peripheral Aerobic Blood Culture - Preliminary No growth in 1 day 04/13/18 04:20 Blood - Peripheral Anaerobic Blood Culture - Preliminary No growth in 1 day 04/13/18 03:15 Blood - Line Aerobic Blood Culture - Preliminary No growth in 1 day 04/13/18 03:15 Blood - Line Anaerobic Blood Culture - Preliminary No growth in 1 day - Imaging Impressions Abdomen/Pelvis CT 04/13/18 00:00 CONCLUSION: 1. Stable appearance of bilateral ureteral stents. Stable mild dilatation of the renal collecting systems. 2. Stable to slight improvement of loculated air and fluid collection in the deep left hemipelvis, possibly an abscess. 3. Moderate anasarca, slightly worse than on prior exam. 4. Pulmonary nodules at both lung bases as above, increased in size from March. 5. Moderate coronary calcifications. Venous Doppler Study 04/13/18 00:00 CONCLUSION: 1. Massive iliofemoral left lower extremity DVT. The central component of the iliac thrombosis is not visualized. Therefore, more central extension of thrombus into the common iliac vein or IVC cannot be excluded. - Procedures EGD PROCEDURE REPORT EXAM DATE: 03/17/2018 IMPRESSIONS: 1. The esophagus appeared normal 2. Large blood clot covering 2/3rds of the stomach. No active bleeding. Suctioned as much as possible 3. Large non-bleeding ulcer, ranging between 5-9mm in size, was found in the duodenal bulb; Argon plasma coagulation was applied to the site; with complete hemostasis achieved 4. Retroflexed views revealed large blood clot EGD PROCEDURE REPORT EXAM DATE: 03/19/2018 IMPRESSIONS: 1. The esophagus appeared normal 2. Two large ulcers, measuring 20 x 30mm in size, were found in the gastric body, on the lesser curvature of the stomach, and in the gastric antrum 3. Two ulcers ranging between 3-5 mm in size were found in the 1st part of the duodenum 4. Retroflexed views revealed no abnormalities RECOMMENDATIONS: 1. Anti-reflux regimen 2. Continue PPI 3. If rebleeds needs IR consultation with L gastric artery embolization PATIENT CONDITION: stable DISPOSITION: Inpatient REPEAT EXAM: Return 1 month EGD Bailey Trevizo MD eSigned: Bailey Trevizo MD 03/19/2018 12:13 PM Assessment and Plan - Assessment (1) Abdominal pain Code(s): R10.9 - Unspecified abdominal pain Status: Resolved (2) Acute GI bleeding Code(s): K92.2 - Gastrointestinal hemorrhage, unspecified Status: Acute (3) Acute hypotension Code(s): I95.9 - Hypotension, unspecified Status: Acute (4) Upper GI bleed Code(s): K92.2 - Gastrointestinal hemorrhage, unspecified Status: Acute (5) Cervical cancer Code(s): C53.9 - Malignant neoplasm of cervix uteri, unspecified Status: Chronic (6) Diabetes Code(s): E11.9 - Type 2 diabetes mellitus without complications Status: Chronic (7) Chronic back pain Code(s): M54.9 - Dorsalgia, unspecified; G89.29 - Other chronic pain Status: Chronic (8) Hypertension Code(s): I10 - Essential (primary) hypertension Status: Chronic - Plan 63 y/o AAM with PMHx of DM and Metastatic Cervical Cancer admitted for inpatient management of upper GI bleed, now resolved, patient now pending placement. Continue rehab efforts. Sepsis Pyuria on repeat UA- catheterized specimen- 04/13 Fever - T down Hypotension- last evening Diarrhea - no WBC elevation, CXR negative + abdominal discomfort - check CT of abdomen - lots of liquid stools - check c diff -continue on IVF 125 cc/hr - Hold Reglan -ID ff - Stool for C diff - started on po Vanco 04/13 - started on Cefepime and Diflucan for coverage 04/13 Anemia, acute blood loss- resolved - - no active bleeding s/p blood transfusion of 6U pRBC's previously this admission on PPI 40 mg bid followed by GI. Repeat EGD on 04/04 showed possible esophagitis, gastric and duodenal ulcers. No active bleeding. H&H ff Previous Upper GI bleed EGD on 03/19 showed large 2 x 3 cm ulcer, had planned for rpt EGD in 1mth Repeat EGD findings as noted above. Continue PPI, Carafate Appreciate gastroenterology recommendations If continued bleeding, may consider bleeding scan. Shingles, resolved. Postherpetic neuralgia. s/p 7-day course of Valtrex and topical Acyclovir, stopped on 04/04 Patient is having postherpetic neuralgia. Started Gabapentin.- will increase dose 600 mg tid Continue Percocet as needed. Metastatic Cervical Cancer Patient to continue outpatient chemotherapy when ready. Pain better controlled with Percocet. Type 2 Diabetes Mellitus Accu-Cheks with sliding scale insulin coverage Blood sugar stable Diabetic diet Acute urinary retention - paz placed 04/11 Extensive DVT Left Heparin drip protocol ? IVC filter candidate and ideal anticoagulant- with recent GIB H and H dropped slightly - no active bleeding, stools wali colored Hematology ff (1) Abdominal pain Qualifiers: Abdominal location: generalized Qualified Code(s): R10.84 - Generalized abdominal pain (5) Cervical cancer Qualifiers: Malignant neoplasm of cervix location: unspecified location Qualified Code(s) : C53.9 - Malignant neoplasm of cervix uteri, unspecified
[2018-04-14] MEDS: Heparin Drip 25,000 UNIT/250 ML BAG IV.CONT PRN (15:04)
--- NOTE | 2018-04-14 15:57 | P.PNONC ---
Subjective Interval history: "I have a headache" Denies any bleeding. She has been having more lower abdominal pain. She requested for her Tylenol, her Percocet and breakthrough morphine. She feels that the morphine has helped. She tolerated transfusion well. Objective Vital Signs/Intake & Output: Vital Signs 04/13/18 15:52 04/13/18 17:59 04/13/18 18:21 Temperature 99.8 F H 101.2 F H 98.5 F Pulse Rate 106 H 104 H 104 H Respiratory Rate 18 20 20 Blood Pressure 81/50 L 93/57 L 93/57 L Pulse Oximetry 98 97 97 04/13/18 18:23 04/13/18 20:00 04/13/18 21:04 Temperature 98.5 F 99.2 F 100.2 F H Pulse Rate 89 93 H Respiratory Rate 18 18 Blood Pressure 106/64 106/62 Pulse Oximetry 94 L 95 04/14/18 00:00 04/14/18 04:00 04/14/18 05:14 Temperature 99.3 F 100.1 F H Pulse Rate 86 84 Respiratory Rate 18 18 18 Blood Pressure 121/69 112/64 Pulse Oximetry 98 97 04/14/18 05:49 04/14/18 08:00 04/14/18 09:50 Temperature 98.9 F Pulse Rate 78 Respiratory Rate 18 18 17 Blood Pressure 109/60 Pulse Oximetry 96 04/14/18 12:00 Temperature 99.2 F Pulse Rate 83 Respiratory Rate 18 Blood Pressure 102/63 Pulse Oximetry 96 Intake & Output 04/13/18 04/14/18 04/14/18 18:59 06:59 18:59 Intake Total 2940 / 2940 2042 / 2042 1490 / 1490 Output Total 600 / 600 400 / 400 Balance 2340 / 2340 2042 / 2042 1090 / 1090 Intake: IV 2700 / 2700 1200 / 1200 1250 / 1250 Heparin/D5W 25,000 U/250 mL 25, 250 / 250 000 unit In 250 ml @ 1,200 UNITS/HR 12 mls/hr IV.CONT TITRATE PRN Rx#:[id number] NS Inj 1,000 ML @ 125 mls/hr IV 2000 / 2000 1000 / 1000 1000 / 1000 .CONT .Q8H SAMANTHA Rx#:[id number] Ofirmev Inj 1,000 mg In 100 ml 100 / 100 100 / 100 @ 400 mls/hr IV.SIG Q6H PRN Rx# :[id number] Maxipime Inj 1,000 MG In NS Inj 100 / 100 100 / 100 100 ML @ 200 mls/hr IV.SIG Q12H SAMANTHA Rx#:[id number] NS Inj 500 ML @ 30 mls/hr IV. 500 / 500 SIG .Q10H SAMANTHA Rx#:[id number] Oral 240 / 240 442 / 442 240 / 240 Intake (Blood Product) Amt 0 / 0 400 / 400 Rbc As-3 Leukoreduced Unit 0 / 0 400 / 400 [id number] Output: Urine 600 / 600 400 / 400 Other: Date of Last Bowel Movement 04/13/18 04/13/18 04/13/18 # Incontinent Bowel Movements 1 Result Diagrams: 04/14/18 06:15 04/13/18 03:15 Laboratory Results: Laboratory Results - last 24 hr 04/03/18 04/13/18 04/13/18 13:49 12:07 16:30 WBC RBC Hgb Hct MCV MCH MCHC RDW Plt Count MPV APTT POC Glucose Stl C.difficile DNA Amp Negative St C. diff Tox Epid 027 Negative Blood Type O Positive Antibody Screen Negative MTS Gel Crossmatch See Detail See Detail Bld Prod Order Comment 04/13/18 04/13/18 04/13/18 16:46 17:23 23:00 WBC RBC Hgb Hct MCV MCH MCHC RDW Plt Count MPV APTT 30.3 57.9 H D POC Glucose 149 H Stl C.difficile DNA Amp St C. diff Tox Epid 027 Blood Type Antibody Screen MTS Gel Crossmatch Bld Prod Order Comment 04/14/18 04/14/18 04/14/18 00:53 06:13 06:15 WBC 5.4 RBC 2.71 L Hgb 8.5 L Hct 24.4 L MCV 89.8 MCH 31.3 MCHC 34.8 RDW 16.0 Plt Count 118 L MPV 6.8 L APTT POC Glucose 151 H 121 H Stl C.difficile DNA Amp St C. diff Tox Epid 027 Blood Type Antibody Screen MTS Gel Crossmatch Bld Prod Order Comment 04/14/18 04/14/18 04/14/18 06:15 11:06 12:30 WBC RBC Hgb Hct MCV MCH MCHC RDW Plt Count MPV APTT 38.3 H D 42.3 H POC Glucose 129 H Stl C.difficile DNA Amp St C. diff Tox Epid 027 Blood Type Antibody Screen MTS Gel Crossmatch Bld Prod Order Comment Culture Results: Microbiology 04/13/18 03:10 Urine Culture - Preliminary Catheterized Urine No growth in 24 hours 04/13/18 04:27 Aerobic Blood Culture - Preliminary Blood - Peripheral No growth in 1 day Anaerobic Blood Culture - Preliminary No growth in 1 day 04/13/18 04:20 Aerobic Blood Culture - Preliminary Blood - Peripheral No growth in 1 day Anaerobic Blood Culture - Preliminary No growth in 1 day 04/13/18 03:15 Aerobic Blood Culture - Preliminary Blood - Line No growth in 1 day Anaerobic Blood Culture - Preliminary No growth in 1 day Imaging Studies: Impressions Abdomen/Pelvis CT 04/13/18 00:00 CONCLUSION: 1. Stable appearance of bilateral ureteral stents. Stable mild dilatation of the renal collecting systems. 2. Stable to slight improvement of loculated air and fluid collection in the deep left hemipelvis, possibly an abscess. 3. Moderate anasarca, slightly worse than on prior exam. 4. Pulmonary nodules at both lung bases as above, increased in size from March. 5. Moderate coronary calcifications. Medications: Active Medications Generic Name Dose Route Start Last Admin Trade Name Freq PRN Reason Stop Dose Admin Albuterol 1 ampul 03/16/18 16:09 03/20/18 20:31 Duoneb Neb (Prn) NEB 1 ampul Q2HR NEB PRN Administration WHEEZING Fluconazole 100 mg 04/13/18 12:45 04/14/18 09:55 Diflucan PO 100 mg DAILY SAMANTHA Administration Gabapentin 600 mg 04/14/18 13:10 04/14/18 13:39 Neurontin PO 600 mg TID SAMANTHA Administration Acetaminophen 1,000 mg in 100 mls @ 400 mls/hr 03/17/18 10:00 04/14/18 05:14 Ofirmev Inj IV.SIG Infused Q6H PRN Infusion PAIN SCALE 1 TO 10 Sodium Chloride 1,000 mls @ 125 mls/hr 04/13/18 02:15 04/14/18 13:25 Ns Inj IV.CONT 125 mls/hr .Q8H SAMANTHA Administration Cefepime HCl 1,000 mg/ Sodium 100 mls @ 200 mls/hr 04/13/18 13:00 04/14/18 13 :25 Chloride IV.SIG 200 mls/hr Q12H SAMANTHA Administration Heparin Sodium/Dextrose 25,000 unit in 250 mls @ 12 mls/hr 04/13/18 16:48 08/27 15:04 Heparin/D5w 25,000 U/250 Ml IV.CONT 1,300 units/hr TITRATE PRN 13 mls/hr Per Protocol Administration Protocol 1,200 UNITS/HR Insulin Human Regular 0 units 03/16/18 18:00 04/14/18 13:20 Novolin R Correctional Sugar Inj SQ Not Given Q6HR SAMANTHA Protocol Ondansetron HCl 4 mg 03/27/18 17:53 03/29/18 04:37 Zofran Inj IV.PUSH 4 mg Q6H PRN Administration nausea/vomiting Oxycodone/Acetaminophen 1 tab 04/12/18 13:41 04/14/18 13:32 Percocet 7.5/325 Mg PO 1 tab Q6H PRN Administration PAIN SCALE 6 TO 10 Pantoprazole Sodium 40 mg 04/05/18 21:00 04/14/18 09:56 Protonix PO 40 mg BID SAMANTHA Administration Sodium Chloride 2 ml 03/20/18 09:00 04/14/18 09:56 Ns Flush IV.FLUSH 2 ml BID SAMANTHA Administration Sucralfate 1 gm 04/05/18 17:00 04/14/18 13:27 Carafate PO 1 gm ACHS SAMANTHA Administration Vancomycin HCl 250 mg 04/13/18 13:00 04/14/18 13:25 Vancomycin Po PO 250 mg QID SAMANTHA Administration Objective Remarks: GENERAL: Chronically ill-appearing, well-developed patient. SKIN: Warm and dry. HEAD: Normocephalic. EYES: No scleral icterus. No injection or drainage. NECK: Supple, trachea midline. No JVD or lymphadenopathy. LYMPHATIC: No adenopathy. CARDIOVASCULAR: Regular rate and rhythm without murmurs. RESPIRATORY: Breath sounds equal bilaterally. No accessory muscle use. GASTROINTESTINAL: Abdomen soft, diffuse tenderness low abdominal/pelvic area. EXTREMITIES: No cyanosis, or edema. MUSCULOSKELETAL: Adequate muscle tone. Left leg swelling unchanged. NEUROLOGICAL: No obvious focal deficit. Awake, alert, and oriented x3. Assessment/Plan (1) DVT (deep venous thrombosis) Code(s): I82.409 - Acute embolism and thrombosis of unspecified deep veins of unspecified lower extremity Status: Acute (2) Cervical cancer Code(s): C53.9 - Malignant neoplasm of cervix uteri, unspecified Status: Chronic - Plan 63-year-old woman with metastatic/locally advanced cervical cancer. Her course is complicated by gastric and duodenal ulcer. She developed a left lower extremity deep vein thromboses. #1. Continue unfractionated heparin. No evidence of bleeding. Hemoglobin is stable. Anticipate switching to a low molecular weight heparin and gradually to a new oral anticoagulant before discharge. We are unable to void none inferior vena cava filter so long as she is able to tolerate anticoagulant therapy without bleeding. CBC will be monitored tomorrow. Treatment for her gastric and duodenal ulcers will continue with the proton pump inhibitor and Carafate. 2. Cervical cancer. Patient is interested in palliative therapy coordinated by Dr. Marks. She will follow-up with Dr. Marks on an outpatient basis. 3. Chronic pain/cancer related pain. Low abdominal pain at the site of patient 's recurrence. Percocet use as increased, may need to switch to oxycodone in light of the Tylenol content of Percocet. Morphine sulfate use for breakthrough. Monitor her pain requirements. Anticipate starting a long- acting pain medication depending on her needs for palliation of cancer related pain symptoms. (1) DVT (deep venous thrombosis) Qualifiers: DVT location: lower extremity Affected thrombotic vein of extremity: iliac Chronicity: acute Laterality: left Qualified Code(s): I82.422 - Acute embolism and thrombosis of left iliac vein (2) Cervical cancer Qualifiers: Malignant neoplasm of cervix location: unspecified location Qualified Code(s) : C53.9 - Malignant neoplasm of cervix uteri, unspecified
[2018-04-14] MEDS: Morphine Sulfate Inj 2 MG/ML Vial IV.PUSH PRN ×2 (18:50→23:41)
[2018-04-15] MEDS: Insulin NovoLIN Regular Correctional Sugar Inj SQ SCH ×3 (00:33→20:51)
[2018-04-15] MEDS: Sod Chloride 0.9% Inj 1,000 ML IV.CONT SCH ×4 (05:53→22:26)
[2018-04-15] MEDS: Morphine Sulfate Inj 2 MG/ML Vial IV.PUSH PRN ×4 (05:56→17:47)
[2018-04-15 06:47] LABS: Hematocrit 25.1 % (35.0-46.0); Hemoglobin 8.6 gm/dL (11.6-15.3); Mean Corpuscular HGB Conc 34.4 % (32.0-36.0); Mean Corpuscular Hemoglobin 31.7 pg (27.0-34.0); Mean Platelet Volume 6.9 fL (7.0-11.0); Platelet Count 131 th/mm3 (150-450); Red Blood Count 2.73 mil/mm3 (4.00-5.30); White Blood Count 4.5 th/mm3 (4.0-11.0)
[2018-04-15] MEDS: Sucralfate 1 GM Tablet PO SCH ×4 (09:09→20:46)
[2018-04-15] MEDS: Fluconazole 100 MG Tablet PO SCH (09:11)
[2018-04-15] MEDS: Gabapentin 300 MG Capsule PO SCH ×3 (09:12→17:47)
[2018-04-15] MEDS: Sodium Chloride 0.9% 2 ML Flush BID IV.FLUSH SCH ×2 (09:12→20:51)
[2018-04-15] MEDS: Heparin Drip 25,000 UNIT/250 ML BAG IV.CONT PRN (10:30)
--- NOTE | 2018-04-15 11:24 | P.PNONC ---
Subjective Interval history: Tearful complaining of pain on the left side along the rib. Feels that the left leg is unchanged. She had many questions regarding the pelvic mass, and the effect of chemotherapy , the long-term toxicity post treatment. Objective Vital Signs/Intake & Output: Vital Signs 04/14/18 16:00 04/14/18 19:59 04/14/18 20:00 Temperature 100.4 F H 98.2 F Pulse Rate 88 79 76 Respiratory Rate 18 18 Blood Pressure 109/59 L 100/59 L Pulse Oximetry 95 96 04/15/18 00:00 04/15/18 04:00 04/15/18 05:12 Temperature 98 F 98.2 F Pulse Rate 74 18 L Respiratory Rate 18 18 Blood Pressure 98/62 L 112/65 172/80 H Pulse Oximetry 94 L 95 04/15/18 07:48 Temperature 99.9 F H Pulse Rate 91 H Respiratory Rate 20 Blood Pressure 112/62 Pulse Oximetry 96 Intake & Output 04/14/18 04/15/18 04/15/18 19:59 06:59 18:59 Intake Total 250 / 250 Output Total 600 / 600 Balance -350 / -350 Intake: IV 250 / 250 Heparin/D5W 25,000 U/250 mL 25, 250 / 250 000 unit In 250 ml @ 1,200 UNITS/HR 12 mls/hr IV.CONT TITRATE PRN Rx#:[id number] NS Inj 1,000 ML @ 125 mls/hr IV .CONT .Q8H SAMANTHA Rx#:[id number] Ofirmev Inj 1,000 mg In 100 ml @ 400 mls/hr IV.SIG Q6H PRN Rx# :[id number] Maxipime Inj 1,000 MG In NS Inj 100 ML @ 200 mls/hr IV.SIG Q12H SAMANTHA Rx#:[id number] Oral Output: Urine 600 / 600 Other: Date of Last Bowel Movement Result Diagrams: 04/15/18 06:00 04/13/18 03:15 Laboratory Results: Laboratory Results - last 24 hr 04/14/18 04/14/18 04/14/18 12:30 17:52 21:04 WBC RBC Hgb Hct MCV MCH MCHC RDW Plt Count MPV APTT 42.3 H 46.6 H POC Glucose 117 H 04/14/18 04/15/18 04/15/18 23:38 05:51 06:00 WBC 4.5 RBC 2.73 L Hgb 8.6 L Hct 25.1 L MCV 92.0 MCH 31.7 MCHC 34.4 RDW 16.0 Plt Count 131 L MPV 6.9 L APTT POC Glucose 103 97 Culture Results: Microbiology 04/13/18 04:27 Aerobic Blood Culture - Preliminary Blood - Peripheral No growth in 2 days Anaerobic Blood Culture - Preliminary No growth in 2 days 04/13/18 04:20 Aerobic Blood Culture - Preliminary Blood - Peripheral No growth in 2 days Anaerobic Blood Culture - Preliminary No growth in 2 days 04/13/18 03:15 Aerobic Blood Culture - Preliminary Blood - Line No growth in 2 days Anaerobic Blood Culture - Preliminary No growth in 2 days 04/13/18 03:10 Urine Culture - Final Catheterized Urine No growth in 48 hours Medications: Active Medications Generic Name Dose Route Start Last Admin Trade Name Freq PRN Reason Stop Dose Admin Albuterol 1 ampul 03/16/18 16:09 03/20/18 20:31 Duoneb Neb (Prn) NEB 1 ampul Q2HR NEB PRN Administration WHEEZING Fluconazole 100 mg 04/13/18 12:45 04/15/18 09:11 Diflucan PO 100 mg DAILY SAMANTHA Administration Gabapentin 600 mg 04/14/18 13:10 04/15/18 09:12 Neurontin PO 600 mg TID SAMANTHA Administration Acetaminophen 1,000 mg in 100 mls @ 400 mls/hr 03/17/18 10:00 04/14/18 17:15 Ofirmev Inj IV.SIG Infused Q6H PRN Infusion PAIN SCALE 1 TO 10 Sodium Chloride 1,000 mls @ 125 mls/hr 04/13/18 02:15 04/15/18 05:53 Ns Inj IV.CONT 125 mls/hr .Q8H SAMANTHA Administration Cefepime HCl 1,000 mg/ Sodium 100 mls @ 200 mls/hr 04/13/18 13:00 04/15/18 03 :00 Chloride IV.SIG Infused Q12H SAMANTHA Infusion Insulin Human Regular 0 units 03/16/18 18:00 04/15/18 00:33 Novolin R Correctional Sugar Inj SQ Not Given Q6HR SAMANTHA Protocol Ondansetron HCl 4 mg 03/27/18 17:53 03/29/18 04:37 Zofran Inj IV.PUSH 4 mg Q6H PRN Administration nausea/vomiting Oxycodone/Acetaminophen 1 tab 04/12/18 13:41 04/15/18 09:09 Percocet 7.5/325 Mg PO 1 tab Q6H PRN Administration PAIN SCALE 6 TO 10 Pantoprazole Sodium 40 mg 04/05/18 21:00 04/15/18 09:11 Protonix PO 40 mg BID SAMANTHA Administration Sodium Chloride 2 ml 03/20/18 09:00 04/15/18 09:12 Ns Flush IV.FLUSH 2 ml BID SAMANTHA Administration Sucralfate 1 gm 04/05/18 17:00 04/15/18 09:09 Carafate PO 1 gm ACHS SAMANTHA Administration Vancomycin HCl 250 mg 04/13/18 13:00 04/15/18 09:12 Vancomycin Po PO 250 mg QID SAMANTHA Administration Objective Remarks: GENERAL: Elderly chronically ill well-developed patient. SKIN: Warm and dry. Maculopapular rash and blisters along the left side. HEAD: Normocephalic. EYES: No scleral icterus. No injection or drainage. NECK: Supple, trachea midline. No JVD or lymphadenopathy. LYMPHATIC: No adenopathy. CARDIOVASCULAR: Regular rate and rhythm without murmurs. RESPIRATORY: Breath sounds equal bilaterally. No accessory muscle use. GASTROINTESTINAL: Abdomen soft, non-tender, nondistended. EXTREMITIES: No cyanosis, or left leg larger than the right. MUSCULOSKELETAL: Adequate muscle tone. NEUROLOGICAL: No obvious focal deficit. Awake, alert, and oriented x3. PSYCHIATRIC: Anxious. Assessment/Plan (1) DVT (deep venous thrombosis) Code(s): I82.409 - Acute embolism and thrombosis of unspecified deep veins of unspecified lower extremity Status: Acute (2) Cervical cancer Code(s): C53.9 - Malignant neoplasm of cervix uteri, unspecified Status: Chronic - Plan 63-year-old woman with metastatic/locally advanced cervical cancer. Her course is complicated by gastric and duodenal ulcer. She developed a left lower extremity deep vein thromboses. 1. No bleeding the last 48 hours since starting unfractionated heparin. The left leg is unchanged. Hemoglobin is stable. We discussed switching to a low molecular weight heparin 40 mg subcu every 12 hours. We will monitor closely for any bleeding. Noted GIs plan to perform embolization if GI bleeding occur. We are able to avoid inferior vena cava filter placement at present. A filter would not obviate the need for anticoagulant therapy. So far she is tolerating anticoagulant therapy. We will consider a filter if unable to anticoagulate. 2. Cervical cancer. Patient is interested in palliative therapy coordinated by Dr. Marks. She will follow-up with Dr. Marks on an outpatient basis. 3. Chronic pain/cancer related pain. Blistering cluster rash in the left side. Suspect clinical diagnosis of zoster. Started on antiviral therapy. Discussed with the primary team. Continue breakthrough medication with morphine IV. Patient reports good effect from morphine therapy. Percocet will be stopped as the Tylenol component mask fever. Small dose of methadone initiated. This is much better pain medication for neuropathic type pain. Patient reports having good bowel movements. Consult palliative care for pain management. (1) DVT (deep venous thrombosis) Qualifiers: DVT location: lower extremity Affected thrombotic vein of extremity: iliac Chronicity: acute Laterality: left Qualified Code(s): I82.422 - Acute embolism and thrombosis of left iliac vein (2) Cervical cancer Qualifiers: Malignant neoplasm of cervix location: unspecified location Qualified Code(s) : C53.9 - Malignant neoplasm of cervix uteri, unspecified
[2018-04-15] MEDS: Methadone 10 MG Tablet PO SCH (13:17)
[2018-04-15] MEDS: Enoxaparin Inj 40 MG/0.4 ML Syringe SQ SCH (13:21)
[2018-04-15] MEDS ORDERED: valACYclovir 500 MG Tab PO SCH (14:00)
--- NOTE | 2018-04-15 14:25 | P.PN ---
Subjective Interval history: awake and alert ate 100% pain on the left side of the abdomen- - Physical Exam Vital signs: Vital Signs 04/14/18 16:00 04/14/18 19:59 04/14/18 20:00 Temperature 100.4 F H 98.2 F Pulse Rate 88 79 76 Respiratory Rate 18 18 Blood Pressure 109/59 L 100/59 L Pulse Oximetry 95 96 04/15/18 00:00 04/15/18 04:00 04/15/18 05:12 Temperature 98 F 98.2 F Pulse Rate 74 18 L Respiratory Rate 18 18 Blood Pressure 98/62 L 112/65 172/80 H Pulse Oximetry 94 L 95 04/15/18 07:48 04/15/18 11:50 Temperature 99.9 F H 98.7 F Pulse Rate 91 H 79 Respiratory Rate 20 20 Blood Pressure 112/62 111/65 Pulse Oximetry 96 96 Intake & Output 04/14/18 04/15/18 04/15/18 19:59 06:59 18:59 Intake Total 250 / 250 Output Total 600 / 600 Balance -350 / -350 Intake: IV 250 / 250 Heparin/D5W 25,000 U/250 mL 25, 250 / 250 000 unit In 250 ml @ 1,200 UNITS/HR 12 mls/hr IV.CONT TITRATE PRN Rx#:[id number] NS Inj 1,000 ML @ 125 mls/hr IV .CONT .Q8H SAMANTHA Rx#:[id number] Ofirmev Inj 1,000 mg In 100 ml @ 400 mls/hr IV.SIG Q6H PRN Rx# :[id number] Maxipime Inj 1,000 MG In NS Inj 100 ML @ 200 mls/hr IV.SIG Q12H SAMANTHA Rx#:[id number] Oral Output: Urine 600 / 600 Other: Date of Last Bowel Movement Narrative: Elderly female, sitting comfortably in bed, in no acute distress SKIN: Left upper chest and back with healing shingle lesion. CARDIOVASCULAR: Regular rate and rhythm without murmurs, gallops, or rubs. RESPIRATORY: Breath sounds equal bilaterally. No accessory muscle use. GASTROINTESTINAL: Abdomen soft, non-tender, good bowel sounds, soft good bowel sounds left side of the abdomen/flank- with dry scabbing lesion s MUSCULOSKELETAL: No cyanosis, left leg- swelling, no calf tenderness NEURO: AAO x3, no focal deficits, speech is clear. - Urinary Catheter Management Straight Cath placed during this visit: yes, but has since been removed by the nurse Reason for continuing: Acute urinary retention Insertion date: 03/16/18 Insertion time: 13:02 Removal date: 03/16/18 Removal time: 12:04 Indwelling Urethral Catheter Cath placed during this visit: yes Reason for continuing: Acute urinary retention Insertion date: 04/11/18 Insertion time: 15:30 PUREWIC Cath placed during this visit: no Reason for continuing: Acute urinary retention Results - Labs CBC & Chem 7: 04/15/18 06:00 04/13/18 03:15 Laboratory Results - last 24 hr 04/14/18 04/14/18 04/14/18 17:52 21:04 23:38 WBC RBC Hgb Hct MCV MCH MCHC RDW Plt Count MPV APTT 46.6 H POC Glucose 117 H 103 04/15/18 04/15/18 04/15/18 05:51 06:00 10:55 WBC 4.5 RBC 2.73 L Hgb 8.6 L Hct 25.1 L MCV 92.0 MCH 31.7 MCHC 34.4 RDW 16.0 Plt Count 131 L MPV 6.9 L APTT 38.1 H POC Glucose 97 04/15/18 12:28 WBC RBC Hgb Hct MCV MCH MCHC RDW Plt Count MPV APTT POC Glucose 99 Microbiology 04/13/18 04:27 Blood - Peripheral Aerobic Blood Culture - Preliminary No growth in 2 days 04/13/18 04:27 Blood - Peripheral Anaerobic Blood Culture - Preliminary No growth in 2 days 04/13/18 04:20 Blood - Peripheral Aerobic Blood Culture - Preliminary No growth in 2 days 04/13/18 04:20 Blood - Peripheral Anaerobic Blood Culture - Preliminary No growth in 2 days 04/13/18 03:15 Blood - Line Aerobic Blood Culture - Preliminary No growth in 2 days 04/13/18 03:15 Blood - Line Anaerobic Blood Culture - Preliminary No growth in 2 days 04/13/18 03:10 Catheterized Urine Urine Culture - Final No growth in 48 hours - Procedures EGD PROCEDURE REPORT EXAM DATE: 03/17/2018 IMPRESSIONS: 1. The esophagus appeared normal 2. Large blood clot covering 2/3rds of the stomach. No active bleeding. Suctioned as much as possible 3. Large non-bleeding ulcer, ranging between 5-9mm in size, was found in the duodenal bulb; Argon plasma coagulation was applied to the site; with complete hemostasis achieved 4. Retroflexed views revealed large blood clot EGD PROCEDURE REPORT EXAM DATE: 03/19/2018 IMPRESSIONS: 1. The esophagus appeared normal 2. Two large ulcers, measuring 20 x 30mm in size, were found in the gastric body, on the lesser curvature of the stomach, and in the gastric antrum 3. Two ulcers ranging between 3-5 mm in size were found in the 1st part of the duodenum 4. Retroflexed views revealed no abnormalities RECOMMENDATIONS: 1. Anti-reflux regimen 2. Continue PPI 3. If rebleeds needs IR consultation with L gastric artery embolization PATIENT CONDITION: stable DISPOSITION: Inpatient REPEAT EXAM: Return 1 month EGD Bailey Trevizo MD eSigned: Bailey Trevizo MD 03/19/2018 12:13 PM Assessment and Plan - Assessment (1) Abdominal pain Code(s): R10.9 - Unspecified abdominal pain Status: Resolved (2) Acute GI bleeding Code(s): K92.2 - Gastrointestinal hemorrhage, unspecified Status: Acute (3) Acute hypotension Code(s): I95.9 - Hypotension, unspecified Status: Acute (4) Upper GI bleed Code(s): K92.2 - Gastrointestinal hemorrhage, unspecified Status: Acute (5) Cervical cancer Code(s): C53.9 - Malignant neoplasm of cervix uteri, unspecified Status: Chronic (6) Diabetes Code(s): E11.9 - Type 2 diabetes mellitus without complications Status: Chronic (7) Chronic back pain Code(s): M54.9 - Dorsalgia, unspecified; G89.29 - Other chronic pain Status: Chronic (8) Hypertension Code(s): I10 - Essential (primary) hypertension Status: Chronic - Plan 63 y/o AAM with PMHx of DM and Metastatic Cervical Cancer admitted for inpatient management of upper GI bleed, now resolved, patient now pending placement. Continue rehab efforts. Sepsis Pyuria on repeat UA- catheterized specimen- 04/13 Fever - T down Hypotension- last evening Diarrhea - no WBC elevation, CXR negative + abdominal discomfort - check CT of abdomen - lots of liquid stools - check c diff -continue on IVF 125 cc/hr - Hold Reglan -ID ff - Stool for C diff - started on po Vanco 04/13 - started on Cefepime and Diflucan for coverage 04/13 Anemia, acute blood loss- resolved - - no active bleeding s/p blood transfusion of 6U pRBC's previously this admission on PPI 40 mg bid followed by GI. Repeat EGD on 04/04 showed possible esophagitis, gastric and duodenal ulcers. No active bleeding. H&H ff Previous Upper GI bleed EGD on 03/19 showed large 2 x 3 cm ulcer, had planned for rpt EGD in 1mth Repeat EGD findings as noted above. Continue PPI, Carafate Appreciate gastroenterology recommendations If continued bleeding, may consider bleeding scan. Shingles, resolved. Postherpetic neuralgia. s/p 7-day course of Valtrex and topical Acyclovir, stopped on 04/04 Started Gabapentin.- increased to 600 mg tid Continue Percocet as needed. -Dr. Benítez increased her pain meds - d/w Dr. Benítez Metastatic Cervical Cancer Patient to continue outpatient chemotherapy when ready. Pain better controlled with Percocet. Type 2 Diabetes Mellitus Accu-Cheks with sliding scale insulin coverage Blood sugar stable Diabetic diet Acute urinary retention - paz placed 04/11 Extensive DVT Left Heparin drip protocol ? IVC filter candidate and ideal anticoagulant- with recent GIB H and H dropped slightly - no active bleeding, stools wali colored Hematology ff (1) Abdominal pain Qualifiers: Abdominal location: generalized Qualified Code(s): R10.84 - Generalized abdominal pain (5) Cervical cancer Qualifiers: Malignant neoplasm of cervix location: unspecified location Qualified Code(s) : C53.9 - Malignant neoplasm of cervix uteri, unspecified
[2018-04-16] MEDS: Enoxaparin Inj 40 MG/0.4 ML Syringe SQ SCH ×2 (00:33→12:42)
[2018-04-16] MEDS: Insulin NovoLIN Regular Correctional Sugar Inj SQ SCH ×5 (00:38→23:20)
[2018-04-16] MEDS: Sod Chloride 0.9% Inj 1,000 ML IV.CONT SCH ×2 (04:40→09:24)
[2018-04-16] MEDS: Sucralfate 1 GM Tablet PO SCH ×4 (08:27→20:50)
[2018-04-16] MEDS: Fluconazole 100 MG Tablet PO SCH (08:27)
[2018-04-16] MEDS: Gabapentin 300 MG Capsule PO SCH ×3 (08:27→17:03)
[2018-04-16] MEDS: Methadone 10 MG Tablet PO SCH (08:28)
[2018-04-16] MEDS: Sodium Chloride 0.9% 2 ML Flush BID IV.FLUSH SCH ×2 (08:29→20:51)
[2018-04-16] MEDS: Morphine Sulfate Inj 2 MG/ML Vial IV.PUSH PRN ×3 (08:36→20:50)
--- NOTE | 2018-04-16 10:26 | P.CONPAL ---
Consult Service: Palliative Care Requesting Physician: Eloise Benítez Reason for Consult: a. To assist with evaluation and management of symptoms including:pain, constipation, debility b. To assist medical decision maker(s) with: better understanding of current medical conditions; weighing benefits/burdens of medical treatment options; making medical treatment decisions. Primary Care Provider: PROVIDER NON STAFF History of Present Illness History of Present Illness: Ms. Salmeron is a 63-year-old female who presented to [place] emergency room on 03/16 with complaints of abdominal pain, black tarry stool, increased weakness and lethargy, and hypotension. She has a significant past medical history for cervical cancer with metastatic disease including retroperitoneal and lung. She has been receiving weekly chemotherapy which showed some improvement of the original tumor though she did continue to have metastatic disease to the retroperitoneum as well as lung. She was continuing systemic treatment as an outpatient and hopeful for continued disease control. She also has a past medical history of asthma, COPD, coronary artery disease, diabetes, renal insufficiency requiring urinary stent placement, hypertension, history of a perforated ulcer. Of note the patient also reports taking NSAIDs daily for pain control. Upon evaluation the patient was found to be hypotensive and severely anemic. The decision was made to admit her and to ICU for further evaluation and treatment. Initial emergency room evaluation revealed: * Temp 98.4, pulse 115, respiratory rate 22, BP 91/56, pulse ox 100% * WBC 11.6, RBC 1.95, Hgb 6.0, HCT 17.9, RDW 17.8, platelets 262, neutrophils 89.2% * PT 11.3, INR 1.1, APTT 33.9 * NA 135, K+ 6.1, CL 106, CO2 16.3, BUN 66, creatinine 2.12, estimated GFR 29, glucose 168 * CA 7.6, MG 1.5, total bili 0.3, AST 11, ALT 14, alk phos 127, total protein 6.3, albumin 2.1, lipase 25 * UA: Yellow hazy urine negative for nitrites bilirubin positive for occult blood moderate WBCs and bacteria urine sent for culture. * EKG: NSR with no significant ST changes * Abdominal/pelvis CT: Bilateral internal ureteral stents with some improvement of hydronephrosis from 03/03/18. Evidence of a fluid and air collection within the left hemipelvis which is unchanged in appearance compared to the previous examination and measures 6.0 x 4.1 cm. The uterus is enlarged and extends into the left hemipelvis but is stable compared to previous examination. Stable left periaortic retroperitoneal lymphadenopathy. Stable left pulmonary nodule measuring 8 mm. Coronary artery calcifications are noted. Degenerative changes and scoliosis of the thoracic lumbar spine are noted GI was consulted due to severe anemia and complaints of melena. Patient underwent EGD on 05/17/18 which revealed a large clot covering two thirds of the stomach and a nonbleeding ulcer in the duodenal bulb. This was clot coagulated at this time. She was started on PPI therapy diet was advanced slowly. She required hemodynamic resuscitation with multiple liters of IV fluid and blood transfusions as deemed necessary in the ICU. General surgery was also consulted due to the abdominal pain and severe anemia though felt she did not require surgical intervention at this point was managed medically. Eventually homeostasis was achieved and repeat EGD was performed on 04/04/18 which ultimately revealed a total of 4 large ulcers to which of being gastric and 2 of which being duodenal. Over the course of her stay the patient reported some leg swelling intermittently. A venous Doppler on 04/13/18 showed a mass of iliofemoral left lower extremity DVT. She originally was started on Lovenox then switched to unfractionated heparin in light of her increased GI bleeding. She required transfusion again and at this point hematology oncology was consulted regarding recommendations for anticoagulant therapy versus inferior vena cava filter placement. Palliative care was consulted to assist with chronic/cancer pain management. Upon examination patient is laying in bed easily arousable to voice. She complains of pain 8/10 mostly located in her left lower extremity. She describes the pain as sharp and burning. She is overall pleasant and easily to converse with. She states that her ultimate goal is to get this pain under control and work on rebuilding her strength so she can continue with chemotherapy. She was originally against going to an SNF and want to return home but now has decided to continue with inpatient rehab. She states that she has gotten progressively weaker since she has been here now requires to ambulate with a walker. She states that she used to use Percocet at home for pain though cannot remember the dosage. She was supplementing this with 800 mg of ibuprofen every 4 hours which most likely contributed to her current GI bleed. She states her pain control at that time was "so so". She was recently started on a small dose of methadone yesterday and we did discuss how this is titratable usually 2 hours or so. We discussed that ultimate goal would be to send her home with oral medications that she can use appropriately to control her pain. She verbalizes a pain goal of 0 we discussed how that may not be possible but a more attainable starting goal may be somewhere between a 3 and 4 Function/Cognitive Trajectory: Prior to her hospitalization the patient was independent of ambulation and all ADLs. She reports that her energy level and functional status were starting to decline slightly but she was still able to care for herself and get to her appointments as needed, though she does require transportation. During her hospitalization she has gotten progressively weaker and is now only able to ambulate a few feet with 1 person assist and a rolling walker. Review of Systems Constitutional: Reports lack of energy, Reports malaise, Reports weakness Cardiovascular: Reports shortness of breath Respiratory: Reports cough Gastrointestinal: Reports abdominal pain, Reports other (abdominal pain after eating) Musculoskeletal: Reports muscle weakness PMFSH - History History Provided By: Patient, Family Member - Medical History Medical History: Medical History (Last Updated 04/16/18 @ 10:36 by ERNESTO Jung) Diabetes (Chronic) Cervical cancer Coronary artery disease Hypertension Peptic ulcer disease Asthma - Surgical History Surgical History: Surgical History (Last Updated 04/16/18 @ 10:38 by ERNESTO Jung) History of colonoscopy Hx of esophagogastroduodenoscopy Hx of cataract removal with insertion of prosthetic lens Hx of tonsillectomy - Family History Family History: Family History (Last Reviewed 04/13/18 @ 12:35 by Akua Valentine MD) Other Family history not known due to adoption - Social History I have reviewed the patient's Social History: Yes - Tobacco History Second Hand Smoke Exposure: No Tobacco Use In Past 30 Days: No Smoking Status: Former smoker Tobacco Type: Cigarettes Number of Pack Years (if former smoker): 10 - Alcohol History How Often Do You Have a Drink Containing Alcohol: Never - Substance Use History Substance History: No History of Abuse - Travel History History of Recent Travel: No Recent Travel in the [place] Within the Last 8 Weeks: No Recent Travel Out of the Country Within the Last 8 Weeks: No - Immunization History Tetanus Immunization: >5 Years Hx Influenza Vaccine This Season: Yes Medications and Allergies Active Medications: Active Medications Albuterol (Duoneb Neb (Prn)) 1 ampul NEB Q2HR NEB PRN PRN Reason: WHEEZING Last Admin: 03/20/18 20:31 Dose: 1 ampul Bisacodyl (Dulcolax Supp) 10 mg RECTAL DAILY PRN PRN Reason: SEVERE CONSITIPATION Dextrose (D50w Vial) 50 ml IV.PUSH UNSCH PRN PRN Reason: PER HYPOGLYCEMIA PROTOCOL Diphenhydramine HCl (Benadryl) 25 mg PO Q4H PRN PRN Reason: SEE LABEL COMMENTS Enoxaparin Sodium (Lovenox Inj) 40 mg SQ Q12H [facility] Last Admin: 04/16/18 00:33 Dose: 40 mg Fluconazole (Diflucan) 100 mg PO DAILY [facility] Last Admin: 04/16/18 08:27 Dose: 100 mg Gabapentin (Neurontin) 600 mg PO TID [facility] Last Admin: 04/16/18 08:27 Dose: 600 mg Glucagon (Glucagon Inj) 1 mg OTHER PRN PRN PRN Reason: for Hypoglycemia Protocol Acetaminophen (Ofirmev Inj) 1,000 mg in 100 mls @ 400 mls/hr IV.SIG Q6H PRN PRN Reason: PAIN SCALE 1 TO 10 Last Infusion: 04/14/18 17:15 Dose: Infused Sodium Chloride (Ns Inj) 1,000 mls @ 125 mls/hr IV.CONT .Q8H [facility] Last Admin: 04/16/18 09:24 Dose: 125 mls/hr Cefepime HCl 1,000 mg/ Sodium (Chloride) 100 mls @ 200 mls/hr IV.SIG Q12H [facility] Last Infusion: 04/16/18 01:32 Dose: Infused Insulin Human Regular (Novolin R Correctional Sugar Inj) 0 units SQ Q6HR [facility]; Protocol Last Admin: 04/16/18 07:25 Dose: Not Given Lactulose (Lactulose Liq) 30 ml PO DAILY PRN PRN Reason: SEVERE CONSITIPATION Methadone HCl (Dolophine) 2.5 mg PO DAILY [facility] Last Admin: 04/16/18 08:28 Dose: 2.5 mg Morphine Sulfate (Morphine Inj) 2 mg IV.PUSH Q4H PRN PRN Reason: BREAKTHROUGH PAIN Last Admin: 04/16/18 08:36 Dose: 2 mg Ondansetron HCl (Zofran Inj) 4 mg IV.PUSH Q6H PRN PRN Reason: nausea/vomiting Last Admin: 03/29/18 04:37 Dose: 4 mg Oxycodone/Acetaminophen (Percocet 7.5/325 Mg) 1 tab PO Q6H PRN PRN Reason: PAIN SCALE 6 TO 10 Last Admin: 04/15/18 09:09 Dose: 1 tab Pantoprazole Sodium (Protonix) 40 mg PO BID [facility] Last Admin: 04/16/18 08:27 Dose: 40 mg Sodium Chloride (Ns Flush) 2 ml IV.FLUSH BID [facility] Last Admin: 04/16/18 08:29 Dose: Not Given Sodium Chloride (Ns Flush) 2 ml IV.FLUSH PRN PRN PRN Reason: FLUSH AFTER USING IV ACCESS Sucralfate (Carafate) 1 gm PO ACHS [facility] Last Admin: 04/16/18 08:27 Dose: 1 gm Vancomycin HCl (Vancomycin Po) 250 mg PO QID [facility] Last Admin: 04/16/18 08:29 Dose: 250 mg Allergies Allergy/AdvReac Type Severity Reaction Status Date / Time No Known Allergies Allergy Verified 03/03/18 15:28 Home Medications Medication Instructions Recorded Confirmed Type ibuprofen 800 mg PO TID 03/03/18 03/16/18 History Advance Directives Living Will: No Healthcare Surrogate: No (-filled out today) Health Care Surrogate Name and Number: Bhakti Frank, daughter [phone] Power of Manager Long Term Care: No Documented care wishes: The patient does not currently have a documented living will. She was able to complete a designation of health care surrogate form beside naming her daughter , Bhakti Frank ([phone]) as her primary HCP. She named her granddaughter, Don Frank as her alternate Today's verbally stated goals: Ms. Salmeron is currently able to participate in her own healthcare decision- making. I believe she is able to understand the risks, benefits, and alternatives associated with her choices. We discussed, in the event that her condition deteriorated to the point of requiring cardiopulmonary resuscitation, would she want that. She verbalized that she wishes to remain a FULL CODE at this time. We also discussed what was important to her during this hospital admission. She states that she wants to get her pain under control, which is understandable. She wants to go home but understands that she needs to be stronger to do that. She also understands that she needs to be in a stronger physical condition to continue with aggressive chemo and radiation treatment modalities. She is aware that she may not have many choices left for systemic treatment options. She has agreed to go to SNF for the time being with the hopes of being able to get back home with her family. Family/friends goals: for patient's daughter Bhakti Frank [phone] to call Ethical and Legal Issues: The patient was able to name her daughter Bhakti Frank as her primary healthcare surrogate. She also named her granddaughter, Chikis Frank as alternate healthcare surrogate. Designation form was filled out and scanned into the patient's electronic medical record. Physical Exam Vital Signs: Vital Signs - 24 hr 04/15/18 11:50 04/15/18 12:00 04/15/18 16:00 Temperature 98.7 F 98.7 F Pulse Rate 79 76 83 Respiratory Rate 20 20 Blood Pressure 111/65 105/65 Pulse Oximetry 96 96 04/15/18 20:00 04/15/18 20:19 04/16/18 00:00 Temperature 99.5 F 99.5 F Pulse Rate 89 89 71 Respiratory Rate 20 20 Blood Pressure 114/66 127/67 Pulse Oximetry 96 98 04/16/18 01:00 04/16/18 04:00 04/16/18 08:00 Temperature 100.3 F H 99.2 F Pulse Rate 84 92 H 98 H Respiratory Rate 20 16 Blood Pressure 128/73 115/67 Pulse Oximetry 97 98 04/16/18 08:47 04/16/18 08:48 Temperature Pulse Rate Respiratory Rate 16 16 Blood Pressure Pulse Oximetry I&O: Intake & Output 04/14/18 04/15/18 04/16/18 04/17/18 07:59 06:59 06:59 06:59 Intake Total 3530 / 3530 1000 / 1000 Output Total 2099 / 2100 Balance 1430 / 1430 1000 / 1000 Physical Exam: CONSTITUTIONAL/GENERAL: This is an adequately nourished patient, in no apparent distress. TUBES/LINES/DRAINS: PIV, right chest wall port, Jackson cath SKIN: No jaundice, rashes, or lesions. Ecchymoses on upper extremities. Cluster type papular rash to left flank. Skin temperature appropriate. Not diaphoretic. HEAD: Atraumatic. Normocephalic. EYES: Pupils equal and round and reactive. Extraocular motions intact. No scleral icterus. No injection or drainage. Fundi not examined. ENT: Hearing grossly normal. Nose without bleeding or purulent drainage. Throat without visible erythema, exudates, masses, or lesions. NECK: Trachea midline. Supple, nontender. No palpable thyroid enlargement or nodularity. CARDIOVASCULAR: Regular rate and rhythm without murmurs, gallops, or rubs. No JVD. LLE pedal pulse notably weaker RESPIRATORY/CHEST: Symmetric, unlabored respirations. Clear to auscultation. Breath sounds equal bilaterally. No wheezes, rales, or rhonchi. GASTROINTESTINAL: Abdomen soft, tender to light palpation left upper and lower quadrant, nondistended. No hepato-splenomegaly, or palpable masses. No guarding. Bowel sounds hypoactive GENITOURINARY: Without palpable bladder distension. Jackson catheter in place. MUSCULOSKELETAL: LLE slightly edematous painful to the touch. No mottling or clubbing. LYMPHATICS: No palpable cervical or supraclavicular adenopathy. NEUROLOGICAL: Awake and alert. Motor and sensory grossly within normal limits. Follows commands. Cognitively sharp. Moves all extremities. PSYCHIATRIC: No obvious anxiety/depression. no apparent hallucinations or other psychotic thought process. Diagnostic Tests Laboratory: Laboratory Results - last 72 hr 04/03/18 04/13/18 04/13/18 13:49 11:46 12:07 WBC RBC Hgb Hct MCV MCH MCHC RDW Plt Count MPV APTT POC Glucose 138 H Stl C.difficile DNA Amp Negative St C. diff Tox Epid 027 Negative Blood Type Antibody Screen MTS Gel Crossmatch See Detail Bld Prod Order Comment 04/13/18 04/13/18 04/13/18 16:30 16:46 17:23 WBC RBC Hgb Hct MCV MCH MCHC RDW Plt Count MPV APTT 30.3 POC Glucose 149 H Stl C.difficile DNA Amp St C. diff Tox Epid 027 Blood Type O Positive Antibody Screen Negative MTS Gel Crossmatch See Detail Bld Prod Order Comment 04/13/18 04/14/18 04/14/18 23:00 00:53 06:13 WBC RBC Hgb Hct MCV MCH MCHC RDW Plt Count MPV APTT 57.9 H D POC Glucose 151 H 121 H Stl C.difficile DNA Amp St C. diff Tox Epid 027 Blood Type Antibody Screen MTS Gel Crossmatch Bld Prod Order Comment 04/14/18 04/14/18 04/14/18 06:15 06:15 11:06 WBC 5.4 RBC 2.71 L Hgb 8.5 L Hct 24.4 L MCV 89.8 MCH 31.3 MCHC 34.8 RDW 16.0 Plt Count 118 L MPV 6.8 L APTT 38.3 H D POC Glucose 129 H Stl C.difficile DNA Amp St C. diff Tox Epid 027 Blood Type Antibody Screen MTS Gel Crossmatch Bld Prod Order Comment 04/14/18 04/14/18 04/14/18 12:30 17:52 21:04 WBC RBC Hgb Hct MCV MCH MCHC RDW Plt Count MPV APTT 42.3 H 46.6 H POC Glucose 117 H Stl C.difficile DNA Amp St C. diff Tox Epid 027 Blood Type Antibody Screen MTS Gel Crossmatch Bld Prod Order Comment 04/14/18 04/15/18 04/15/18 23:38 05:51 06:00 WBC 4.5 RBC 2.73 L Hgb 8.6 L Hct 25.1 L MCV 92.0 MCH 31.7 MCHC 34.4 RDW 16.0 Plt Count 131 L MPV 6.9 L APTT POC Glucose 103 97 Stl C.difficile DNA Amp St C. diff Tox Epid 027 Blood Type Antibody Screen MTS Gel Crossmatch Bld Prod Order Comment 04/15/18 04/15/18 04/15/18 10:55 12:28 17:21 WBC RBC Hgb Hct MCV MCH MCHC RDW Plt Count MPV APTT 38.1 H POC Glucose 99 109 Stl C.difficile DNA Amp St C. diff Tox Epid 027 Blood Type Antibody Screen MTS Gel Crossmatch Bld Prod Order Comment 04/16/18 04/16/18 00:36 06:16 WBC RBC Hgb Hct MCV MCH MCHC RDW Plt Count MPV APTT POC Glucose 105 97 Stl C.difficile DNA Amp St C. diff Tox Epid 027 Blood Type Antibody Screen MTS Gel Crossmatch Bld Prod Order Comment Result Diagrams: 04/15/18 06:00 04/13/18 03:15 Microbiology: Microbiology 04/13/18 04:27 Aerobic Blood Culture - Preliminary Blood - Peripheral No growth in 2 days Anaerobic Blood Culture - Preliminary No growth in 2 days 04/13/18 04:20 Aerobic Blood Culture - Preliminary Blood - Peripheral No growth in 2 days Anaerobic Blood Culture - Preliminary No growth in 2 days 04/13/18 03:15 Aerobic Blood Culture - Preliminary Blood - Line No growth in 2 days Anaerobic Blood Culture - Preliminary No growth in 2 days 04/13/18 03:10 Urine Culture - Final Catheterized Urine No growth in 48 hours Procedures: 03/17/18 * EGD 04/04/18 * repeat EGD Patient/Family Conference Family Conference Location: Bedside Issues Discussed: * Palliative care role, purpose, approach * Additional medical, psychosocial, and spiritual history * Patients general health, functional status, and cognitive changes in the months leading up to the current hospitalization * Patient understanding of the current medical problems * Patient understanding of prognosis * Patients goals of care * Current medical treatment options and benefits/burdens of those options * Questions answered to the best of my ability * Palliative care contact information provided In summary, Ms. Salmeron is currently able to participate in her own healthcare decision-making. I believe she is able to understand the risks, benefits, and alternatives associated with her choices. We discussed, in the event that her condition deteriorated to the point of requiring cardiopulmonary resuscitation, would she want that. She verbalized that she wishes to remain a FULL CODE at this time. We also discussed what was important to her during this hospital admission. She states that she wants to get her pain under control, which is understandable. She wants to go home but understands that she needs to be stronger to do that. She also understands that she needs to be in a stronger physical condition to continue with aggressive chemo and radiation treatment modalities. She is aware that she may not have many choices left for systemic treatment options. She has agreed to go to SNF for the time being with the hopes of being able to get back home with her family. Assessment and Plan - Symptom Scale (1) Pain 0-10 Scale: 8 Comment: was started on methadone 2.5mg QD 04/15/18, will titrate up if needed (2) Debility 0-10 Scale: Unable to quantify Pertinent Non-Medical Issues: Psychosocial: Ms. Salmeron is currently single. She was born and raised in the [facility]. 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 She has two children, 1 of which who is . She currently lives with her remaining daughter Bhakti and her family. Spiritual: Congregation, her visits her regularly Legal: The patient was able to name her daughter Bhakti Frank as her primary healthcare surrogate. She named her granddaughter Chikis Frank as her alternate Ethical issues impacting care: There are currently no known ethical issues impacting care at this time Important Contacts: Bhakti Frank, daughter/primary HCS [phone] Chikis Frank, granddaughter/alternated HCS Prognosis: The patient has progressive cervical cancer with metastatic disease to the retroperitoneum and lungs. She has been unable to continue with systemic chemotherapy due to her prolonged hospitalization and debilitated status. This has also been complicated by an acute GI bleed and ulcer formation. She can definitely overcome this acute hospitalization though she has become deconditioned and frail deeming her most likely ineligible for any continuation of systemic chemotherapy or radiation. She is at further risk for increased hypercoagulability adverse effects, renal involvement, and any sequelae related to overall progression of her disease, including . Code Status: Full Code Plan: * LEGAL DECISION MAKER -the patient is currently able to participate in her own healthcare decision making. Should she become incapacitated any time she has named her daughter Bhakti Frank [phone] as her primary HCS. Designation form was signed and located in the electronic medical record * GOALS - We discussed, in the event that her condition deteriorated to the point of requiring cardiopulmonary resuscitation, would she want that. She verbalized that she wishes to remain a FULL CODE at this time. We also discussed what was important to her during this hospital admission. She states that she wants to get her pain under control, which is understandable. She wants to go home but understands that she needs to be stronger to do that. She also understands that she needs to be in a stronger physical condition to continue with aggressive chemo and radiation treatment modalities. She is aware that she may not have many choices left for systemic treatment options. She has agreed to go to SNF for the time being with the hopes of being able to get back home with her family. * CODE STATUS -FULL CODE * SYMPTOMS Pain -chronic cancer pain. She also is complaining of abdominal pain more so after eating. More recently complaining of left lower extremity pain where she has positive DVT. She states she was taking Percocet though she does not remember the dose, as well as 800 mg of ibuprofen at home with mixed results. She was recently started on gabapentin 600 mg 3 times daily on 04/14/18. Currently has oxycodone 7.5 mg every 6 hours as needed use approximately 3 doses in the last 24 hours. Morphine 2 mg IV push every 4 hours as needed for breakthrough pain. Methadone 2.5 mg p.o. daily was started yesterday 04/15/18. Would wait 72 hours to see effects from methadone. Can increase this dose up as needed and substitute with as needed oxycodone for breakthrough pain. Suggest weaning use of IV morphine she cannot discharge with this. As far as abdominal pain is concerned we will consider adding Carafate 4 times daily to assist with abdominal pain revolving around meals. Debility - multifactorial, primary concern being progressive nature of cancer disease process. Would suggest working with PT/OT as able to. Could also consider dietary consult for calorie count to ensure adequate calorie intake as well as look at protein intake and requirements. Patient would benefit from inpatient rehab if she qualifies. Palliative care will continue to follow during hospital course as condition evolves, to assist patient/decision maker with understanding of medical conditions, weighing benefits/burdens of treatment options, for clarification of goals of treatment. Additionally will assist with any symptoms of palliative concern. Appreciation Thank you for the opportunity to participate in the care of Morgan Salmeron. Attestation Attestation: To help prompt me to consider important information that might be impacting today's encounter and assessment, information from prior notes written by myself or my colleagues may have been "brought forward" into today's note. My signature on this note, however, is an attestation that I personally performed the exam, history, and/or decision-making noted today, and, unless otherwise indicated, the interactions with patient, family, and staff as well as the review of records all occurred today. I also attest that the listed assessment and stated plan reflect my best clinical judgment today based on the combination of historical information, prior notes, and today's exam/ interactions. When time spent is documented, it refers only to time spent today by the signer, or if indicated, combined time spent today by collaborating physician/nurse practitioner.
--- NOTE | 2018-04-16 11:33 | P.PN ---
Subjective Interval history: t max 100.3 patient awake and alert, states has been up with PT already no nausea or vomiting d/w patient and staff nurse- she ate good no diarrhea , no GIB Physical Exam Vital signs: Vital Signs 04/15/18 11:50 04/15/18 12:00 04/15/18 16:00 Temperature 98.7 F 98.7 F Pulse Rate 79 76 83 Respiratory Rate 20 20 Blood Pressure 111/65 105/65 Pulse Oximetry 96 96 04/15/18 20:00 04/15/18 20:19 04/16/18 00:00 Temperature 99.5 F 99.5 F Pulse Rate 89 89 71 Respiratory Rate 20 20 Blood Pressure 114/66 127/67 Pulse Oximetry 96 98 04/16/18 01:00 04/16/18 04:00 04/16/18 08:00 Temperature 100.3 F H 99.2 F Pulse Rate 84 92 H 98 H Respiratory Rate 20 16 Blood Pressure 128/73 115/67 Pulse Oximetry 97 98 04/16/18 08:47 04/16/18 08:48 Temperature Pulse Rate Respiratory Rate 16 16 Blood Pressure Pulse Oximetry Intake & Output 04/15/18 04/16/18 04/16/18 18:59 06:59 18:59 Intake Total 1950 / 1950 1580 / 1580 1000 / 1000 Output Total 1200 / 1200 900 / 900 Balance 750 / 750 680 / 680 1000 / 1000 Intake: IV 1350 / 1350 1100 / 1100 1000 / 1000 Heparin/D5W 25,000 U/250 mL 25, 250 / 250 000 unit In 250 ml @ 1,200 UNITS/HR 12 mls/hr IV.CONT TITRATE PRN Rx#:[id number] NS Inj 1,000 ML @ 125 mls/hr IV 1000 / 1000 1000 / 1000 1000 / 1000 .CONT .Q8H [facility] Rx#:[id number] Maxipime Inj 1,000 MG In NS Inj 100 / 100 100 / 100 100 ML @ 200 mls/hr IV.SIG Q12H [facility] Rx#:[id number] Oral 600 / 600 480 / 480 Output: Urine 1200 / 1200 900 / 900 Other: Date of Last Bowel Movement 04/14/18 04/14/18 04/14/18 Narrative: Elderly female, , in no acute distress CARDIOVASCULAR: Regular rate and rhythm without murmurs, gallops, or rubs. RESPIRATORY: Breath sounds equal bilaterally. No accessory muscle use. GASTROINTESTINAL: Abdomen non-tender, good bowel sounds, soft good bowel sounds left side of the abdomen/flank- with dry scabbing lesion MUSCULOSKELETAL: No cyanosis, left leg- enlarged , no calf tenderness NEURO: AAO x3, no focal deficits, speech is clear. just mild facial asymmetry - Urinary Catheter Management Straight Cath placed during this visit: yes, but has since been removed by the nurse Reason for continuing: Acute urinary retention Insertion date: 03/16/18 Insertion time: 13:02 Removal date: 03/16/18 Removal time: 12:04 Indwelling Urethral Catheter Cath placed during this visit: yes Reason for continuing: Acute urinary retention Insertion date: 04/11/18 Insertion time: 15:30 PUREWIC Cath placed during this visit: no Reason for continuing: Acute urinary retention Results - Labs CBC & Chem 7: 04/15/18 06:00 04/13/18 03:15 Laboratory Results - last 24 hr 04/13/18 04/15/18 04/15/18 16:30 12:28 17:21 POC Glucose 99 109 MTS Gel Crossmatch See Detail 04/16/18 04/16/18 00:36 06:16 POC Glucose 105 97 MTS Gel Crossmatch Microbiology 04/13/18 04:27 Blood - Peripheral Aerobic Blood Culture - Preliminary No growth in 3 days 04/13/18 04:27 Blood - Peripheral Anaerobic Blood Culture - Preliminary No growth in 3 days 04/13/18 04:20 Blood - Peripheral Aerobic Blood Culture - Preliminary No growth in 3 days 04/13/18 04:20 Blood - Peripheral Anaerobic Blood Culture - Preliminary No growth in 3 days 04/13/18 03:15 Blood - Line Aerobic Blood Culture - Preliminary No growth in 3 days 04/13/18 03:15 Blood - Line Anaerobic Blood Culture - Preliminary No growth in 3 days 04/13/18 03:10 Catheterized Urine Urine Culture - Final No growth in 48 hours - Procedures EGD PROCEDURE REPORT EXAM DATE: 03/17/2018 IMPRESSIONS: 1. The esophagus appeared normal 2. Large blood clot covering 2/3rds of the stomach. No active bleeding. Suctioned as much as possible 3. Large non-bleeding ulcer, ranging between 5-9mm in size, was found in the duodenal bulb; Argon plasma coagulation was applied to the site; with complete hemostasis achieved 4. Retroflexed views revealed large blood clot EGD PROCEDURE REPORT EXAM DATE: 03/19/2018 IMPRESSIONS: 1. The esophagus appeared normal 2. Two large ulcers, measuring 20 x 30mm in size, were found in the gastric body, on the lesser curvature of the stomach, and in the gastric antrum 3. Two ulcers ranging between 3-5 mm in size were found in the 1st part of the duodenum 4. Retroflexed views revealed no abnormalities RECOMMENDATIONS: 1. Anti-reflux regimen 2. Continue PPI 3. If rebleeds needs IR consultation with L gastric artery embolization PATIENT CONDITION: stable DISPOSITION: Inpatient REPEAT EXAM: Return 1 month EGD Bailey Trevizo MD eSigned: Bailey Trevizo MD 03/19/2018 12:13 PM Assessment and Plan - Assessment (1) Abdominal pain Code(s): R10.9 - Unspecified abdominal pain Status: Resolved (2) Acute GI bleeding Code(s): K92.2 - Gastrointestinal hemorrhage, unspecified Status: Acute (3) Acute hypotension Code(s): I95.9 - Hypotension, unspecified Status: Acute (4) Upper GI bleed Code(s): K92.2 - Gastrointestinal hemorrhage, unspecified Status: Acute (5) Cervical cancer Code(s): C53.9 - Malignant neoplasm of cervix uteri, unspecified Status: Chronic (6) Diabetes Code(s): E11.9 - Type 2 diabetes mellitus without complications Status: Chronic (7) Chronic back pain Code(s): M54.9 - Dorsalgia, unspecified; G89.29 - Other chronic pain Status: Chronic (8) Hypertension Code(s): I10 - Essential (primary) hypertension Status: Chronic - Plan 63 y/o AAM with PMHx of DM and Metastatic Cervical Cancer admitted for inpatient management of upper GI bleed, now resolved, patient now pending placement. Continue rehab efforts. Sepsis Pyuria on repeat UA- catheterized specimen- 04/13 Fever - T down Hypotension- last evening 04/15- improved Diarrhea - no WBC elevation, CXR negative - check CT of abdomen- unremarkable - lots of liquid stools - check c diff -continue on IVF 125 cc/hr - Hold Reglan -ID ff - Stool for C diff - started on po Vanco 04/13 - started on Cefepime and Diflucan for coverage 04/13 Anemia, acute blood loss- resolved - - no active bleeding s/p blood transfusion of 6U pRBC's previously this admission on PPI 40 mg bid followed by GI. Repeat EGD on 04/04 showed possible esophagitis, gastric and duodenal ulcers. monitor on po diet Previous Upper GI bleed EGD on 03/19 showed large 2 x 3 cm ulcer, had planned for rpt EGD in 1mth Repeat EGD findings as noted above. Continue PPI, Carafate Appreciate gastroenterology recommendations If continued bleeding, may consider bleeding scan. Shingles, resolved. Postherpetic neuralgia. s/p 7-day course of Valtrex and topical Acyclovir, stopped on 04/04 Started Gabapentin.- increased to 600 mg tid Continue Percocet as needed. -Dr. Benítez increased her pain meds - d/w Dr. Benítez 04/15. also placed on Methadone Metastatic Cervical Cancer Patient to continue outpatient chemotherapy when ready. Pain better controlled with Percocet. Type 2 Diabetes Mellitus Accu-Cheks with sliding scale insulin coverage Blood sugar stable Diabetic diet Acute urinary retention - paz placed 04/11 Extensive DVT Left 04/13 Dr. Benítez ff- heparin drip changed to Lovenox 40 mg SQ q12 04/15 ? IVC filter candidate and ideal anticoagulant- with recent GIB- will defer to Hematology H and H dropped slightly 04/15 - no active bleeding, stools wali colored Hematology ff ff H and H (1) Abdominal pain Qualifiers: Qualified Code(s): R10.84 - Generalized abdominal pain (5) Cervical cancer Qualifiers: Qualified Code(s): C53.9 - Malignant neoplasm of cervix uteri, unspecified
--- NOTE | 2018-04-16 15:04 | P.PNID ---
Subjective Remarks: Patient is a 63-year-old female, has history of metastatic cervical cancer, was apparently being seen by her oncologist and she was noted to be hypotensive. She was also complaining of abdominal pain and multiple loose dark stools of 1 day duration. She was admitted to the hospital, and had GI workup. She had 2 upper endoscopy and had shown duodenal ulcer and gastric ulcers. Looks like her hemoglobin has stabilized. Patient still complains of abdominal pain. Patient on admission was also given Rocephin for UTI. She was also treated for shingles in her left flank and received a course of Valtrex. Patient was initially in the ICU and stabilized and has been in the medical service. Since April 07 patient has had intermittent fevers. Today the fevers have been more persistent, and she was also noted to be having a lot of diarrhea. She continues to have abdominal pain. She has some coughing, but chest x-ray is normal. Patient also had urinary retention, and a Paz catheter was placed yesterday. Urinalysis is showing pyuria. 2 blood cultures were done and those are still pending. Infectious disease consultation has been requested to assist with evaluation and treatment. Notes reviewed D/W Dr Peterson Has occasional low grade temps - not as frequent C/S negative C diff nergative has extensive DVT in LLE - on heparin GIB seem stable Antibiotics: Cefepime Fluconazole PO vanco Lines: port Past Medical History: Diabetes (Chronic) Asthma Cancer Hx of cataract removal with insertion of prosthetic lens Hx of tonsillectomy Allergies/Adverse Reactions: Allergies No Known Allergies Allergy (Verified 03/03/18 15:28) Objective Vital Signs 04/15/18 16:00 04/15/18 20:00 04/15/18 20:19 Temperature 98.7 F 99.5 F Pulse Rate 83 89 89 Respiratory Rate 20 20 Blood Pressure 105/65 114/66 Pulse Oximetry 96 96 04/16/18 00:00 04/16/18 01:00 04/16/18 04:00 Temperature 99.5 F 100.3 F H Pulse Rate 71 84 92 H Respiratory Rate 20 20 Blood Pressure 127/67 128/73 Pulse Oximetry 98 97 04/16/18 08:00 04/16/18 08:47 04/16/18 08:48 Temperature 99.2 F Pulse Rate 98 H Respiratory Rate 16 16 16 Blood Pressure 115/67 Pulse Oximetry 98 04/16/18 12:00 04/16/18 12:47 Temperature 97.5 F L Pulse Rate 70 Respiratory Rate 16 16 Blood Pressure 132/71 Pulse Oximetry 98 Intake & Output 04/15/18 04/16/18 04/16/18 18:59 06:59 18:59 Intake Total 1950 / 1950 1580 / 1580 2100 / 2100 Output Total 1200 / 1200 900 / 900 Balance 750 / 750 680 / 680 2100 / 2100 Intake: IV 1350 / 1350 1100 / 1100 2100 / 2100 Heparin/D5W 25,000 U/250 mL 25, 250 / 250 000 unit In 250 ml @ 1,200 UNITS/HR 12 mls/hr IV.CONT TITRATE PRN Rx#:[id number] NS Inj 1,000 ML @ 125 mls/hr IV 1000 / 1000 1000 / 1000 2000 / 2000 .CONT .Q8H [facility] Rx#:[id number] Maxipime Inj 1,000 MG In NS Inj 100 / 100 100 / 100 100 / 100 100 ML @ 200 mls/hr IV.SIG Q12H [facility] Rx#:[id number] Oral 600 / 600 480 / 480 Output: Urine 1200 / 1200 900 / 900 Other: Date of Last Bowel Movement 04/14/18 04/14/18 04/14/18 04/13/18 04:27 Blood - Peripheral Aerobic Blood Culture - Preliminary No growth in 3 days 04/13/18 04:27 Blood - Peripheral Anaerobic Blood Culture - Preliminary No growth in 3 days 04/13/18 04:20 Blood - Peripheral Aerobic Blood Culture - Preliminary No growth in 3 days 04/13/18 04:20 Blood - Peripheral Anaerobic Blood Culture - Preliminary No growth in 3 days 04/13/18 03:15 Blood - Line Aerobic Blood Culture - Preliminary No growth in 3 days 04/13/18 03:15 Blood - Line Anaerobic Blood Culture - Preliminary No growth in 3 days 04/13/18 03:10 Catheterized Urine Urine Culture - Final No growth in 48 hours 04/13/18 12:07 Stool Stool Occult Blood (BREN) - Pending Lab - Hematology Results 04/15/18 06:00 WBC 4.5 RBC 2.73 L Hgb 8.6 L Hct 25.1 L MCV 92.0 MCH 31.7 MCHC 34.4 RDW 16.0 Plt Count 131 L MPV 6.9 L Lab - Chemistry Results 04/14/18 04/14/18 04/15/18 17:52 23:38 05:51 POC Glucose 117 H 103 97 04/15/18 04/15/18 04/16/18 12:28 17:21 00:36 POC Glucose 99 109 105 04/16/18 04/16/18 06:16 11:57 POC Glucose 97 109 Imaging: ITS Impressions Abdomen X-Ray 03/20/18 00:00 CONCLUSION: Nonspecific bowel gas pattern with some mildly to moderately dilated loops of small and large bowel with air. This can be seen with an ileus. Bilateral double-J stents in place. Abdomen/Pelvis CT 04/13/18 00:00 CONCLUSION: 1. Stable appearance of bilateral ureteral stents. Stable mild dilatation of the renal collecting systems. 2. Stable to slight improvement of loculated air and fluid collection in the deep left hemipelvis, possibly an abscess. 3. Moderate anasarca, slightly worse than on prior exam. 4. Pulmonary nodules at both lung bases as above, increased in size from March. 5. Moderate coronary calcifications. Chest X-Ray 04/13/18 00:00 CONCLUSION: No acute cardiopulmonary disease. Venous Doppler Study 04/13/18 00:00 CONCLUSION: 1. Massive iliofemoral left lower extremity DVT. The central component of the iliac thrombosis is not visualized. Therefore, more central extension of thrombus into the common iliac vein or IVC cannot be excluded. Physical Exam: GENERAL: Patient is a chronically ill appearing, well-developed female, awakens easily, not in respiratory distress. SKIN: Warm and dry. No generalized rash HEAD: Atraumatic. Normocephalic. No temporal wasting, or tenderness. EYES: [place] conjunctiva. No petechia or hemorrhage. No scleral icterus. No injection or drainage. EARS, NOSE AND THROAT: Nose without bleeding or purulent nasal discharge. Mucous membranes pink and moist. No oral lesions noted. No exudate. No oral thrush. NECK: Trachea midline. Supple and not tender, no meningeal signs CARDIOVASCULAR: Regular rate and rhythm. No murmurs, rubs or gallops heard RESPIRATORY: Clear to auscultation. Breath sounds equal bilaterally. No rales , wheezing or rhonchi. Decreased breath sounds at bases. Port in R upper chest , accessed, not tender, no redness, tunnelled portion looks ok ABDOMEN: Soft, diffuse tenderness, nondistended. Bowel sounds present and normoactive. No guarding. No rebound. No organomegaly. EXTREMITIES: No clubbing, cyanosis. LLE is markedly larger compared to RLE, no calf tenderness, no Tin's sign. : Paz cath in place, urine looks clear NEUROLOGICAL: Awake and alert. Cranial nerves grossly intact. Motor grossly within normal limits. PSYCHIATRIC: Normal affect, calm and cooperative. LINE: Port no evidence of infection Assessment and Plan - Plan Impression Fevers since 04/07, likely due to extensive DVT - has (+) UA, urinary retention, now with paz - has diarrhea, R/O C diff DVT LLE (+) UA Recent GIB has DU and Metastatic cervical CA Recommendation Change Abx to Levaquin and complete 7 days of Abx for (+)UA Stop other Abx Follow temps MOnitor progress ON anticoagulation for DVT LLE D/W Dr peterson ([facility] [place])
[2018-04-16] MEDS: levoFLOXacin 500 MG Tablet PO SCH (16:41)
--- NOTE | 2018-04-16 19:31 | P.PNONC ---
Subjective Interval history: Still complains of pain. Appreciate Palliative care consult. Complain at the left leg is heavy. Denies any bleeding. Tried to work with physical therapy today. Objective Vital Signs/Intake & Output: Vital Signs 04/15/18 20:00 04/15/18 20:19 04/16/18 00:00 Temperature 99.5 F 99.5 F Pulse Rate 89 89 71 Respiratory Rate 20 20 Blood Pressure 114/66 127/67 Pulse Oximetry 96 98 04/16/18 01:00 04/16/18 04:00 04/16/18 08:00 Temperature 100.3 F H 99.2 F Pulse Rate 84 92 H 98 H Respiratory Rate 20 16 Blood Pressure 128/73 115/67 Pulse Oximetry 97 98 04/16/18 08:47 04/16/18 08:48 04/16/18 12:00 Temperature 97.5 F L Pulse Rate 70 Respiratory Rate 16 16 16 Blood Pressure 132/71 Pulse Oximetry 98 04/16/18 12:47 04/16/18 16:00 Temperature 100.2 F H Pulse Rate 84 Respiratory Rate 16 18 Blood Pressure 114/70 Pulse Oximetry 97 Intake & Output 04/16/18 04/16/18 04/17/18 06:59 18:59 06:59 Intake Total 1580 / 1580 2100 / 2100 Output Total 900 / 900 1250 / 1250 Balance 680 / 680 850 / 850 Intake: IV 1100 / 1100 2100 / 2100 NS Inj 1,000 ML @ 125 mls/hr IV 1000 / 1000 2000 / 2000 .CONT .Q8H [facility]ANTHA Rx#:[id number] Maxipime Inj 1,000 MG In NS Inj 100 / 100 100 / 100 100 ML @ 200 mls/hr IV.SIG Q12H [facility] Rx#:[id number] Oral 480 / 480 Output: Urine 900 / 900 1250 / 1250 Other: Date of Last Bowel Movement 04/14/18 04/14/18 Result Diagrams: 04/15/18 06:00 04/13/18 03:15 Laboratory Results: Laboratory Results - last 24 hr 04/13/18 04/16/18 04/16/18 16:30 00:36 06:16 POC Glucose 105 97 MTS Gel Crossmatch See Detail 04/16/18 04/16/18 11:57 16:42 POC Glucose 109 102 MTS Gel Crossmatch Culture Results: Microbiology 04/13/18 04:27 Aerobic Blood Culture - Preliminary Blood - Peripheral No growth in 3 days Anaerobic Blood Culture - Preliminary No growth in 3 days 04/13/18 04:20 Aerobic Blood Culture - Preliminary Blood - Peripheral No growth in 3 days Anaerobic Blood Culture - Preliminary No growth in 3 days 04/13/18 03:15 Aerobic Blood Culture - Preliminary Blood - Line No growth in 3 days Anaerobic Blood Culture - Preliminary No growth in 3 days 04/13/18 03:10 Urine Culture - Final Catheterized Urine No growth in 48 hours Medications: Active Medications Generic Name Dose Route Start Last Admin Trade Name Freq PRN Reason Stop Dose Admin Albuterol 1 ampul 03/16/18 16:09 03/20/18 20:31 Duoneb Neb (Prn) NEB 1 ampul Q2HR NEB PRN Administration WHEEZING Enoxaparin Sodium 40 mg 04/15/18 13:00 04/16/18 12:42 Lovenox Inj SQ 40 mg Q12H [facility]ANTHA Administration Gabapentin 600 mg 04/14/18 13:10 04/16/18 17:03 Neurontin PO 600 mg TID SAMANTHA Administration Acetaminophen 1,000 mg in 100 mls @ 400 mls/hr 03/17/18 10:00 04/14/18 17:15 Ofirmev Inj IV.SIG Infused Q6H PRN Infusion PAIN SCALE 1 TO 10 Insulin Human Regular 0 units 03/16/18 18:00 04/16/18 17:04 Novolin R Correctional Sugar Inj SQ Not Given Q6HR [facility] Protocol Levofloxacin 500 mg 04/16/18 15:15 04/16/18 16:41 Levaquin PO 04/21/18 15:14 500 mg DAILY [facility]ANTHA Administration Methadone HCl 2.5 mg 04/15/18 13:00 04/16/18 08:28 Dolophine PO 2.5 mg DAILY [facility]AN[facility]A Administration Morphine Sulfate 2 mg 04/15/18 13:00 04/16/18 12:43 Morphine Inj IV.PUSH 2 mg Q4H PRN Administration BREAKTHROUGH PAIN Ondansetron HCl 4 mg 03/27/18 17:53 03/29/18 04:37 Zofran Inj IV.PUSH 4 mg Q6H PRN Administration nausea/vomiting Oxycodone/Acetaminophen 1 tab 04/12/18 13:41 04/15/18 09:09 Percocet 7.5/325 Mg PO 1 tab Q6H PRN Administration PAIN SCALE 6 TO 10 Pantoprazole Sodium 40 mg 04/05/18 21:00 04/16/18 08:27 Protonix PO 40 mg BID SAMANTHA Administration Sodium Chloride 2 ml 03/20/18 09:00 04/16/18 08:29 Ns Flush IV.FLUSH Not Given BID SAMANTHA Sucralfate 1 gm 04/05/18 17:00 04/16/18 16:37 Carafate PO 1 gm ACHS SAMANTHA Administration Objective Remarks: GENERAL: Well-nourished, well-developed patient. SKIN: Warm and dry. HEAD: Normocephalic. EYES: No scleral icterus. No injection or drainage. NECK: Supple, trachea midline. No JVD or lymphadenopathy. LYMPHATIC: No adenopathy. CARDIOVASCULAR: Regular rate and rhythm without murmurs. RESPIRATORY: Breath sounds equal bilaterally. No accessory muscle use. GASTROINTESTINAL: Abdomen soft, non-tender, nondistended. EXTREMITIES: No cyanosis, or edema. MUSCULOSKELETAL: Adequate muscle tone. NEUROLOGICAL: No obvious focal deficit. Awake, alert, and oriented x3. PSYCHIATRIC: Appropriate mood and affect; insight and judgment normal. Assessment/Plan (1) DVT (deep venous thrombosis) Code(s): I82.409 - Acute embolism and thrombosis of unspecified deep veins of unspecified lower extremity Status: Acute (2) Cervical cancer Code(s): C53.9 - Malignant neoplasm of cervix uteri, unspecified Status: Chronic - Plan 63-year-old woman with metastatic/locally advanced cervical cancer. Her course is complicated by gastric and duodenal ulcer. She developed a left lower extremity deep vein thromboses. 1. No bleeding the last 72 hours since starting unfractionated heparin. The left leg is unchanged. CBC is pending for tomorrow. Patient is tolerating Lovenox 40 mg subcu every 12 hours. If hemoglobin is stable anticipate optimizing the dose to Lovenox 60 mg subcu every 12 hours. 2. Cervical cancer. Patient is interested in palliative therapy coordinated by Dr. Marks. She will follow-up with Dr. Marks on an outpatient basis. 3. Chronic pain/cancer related pain. Zoster previously treated. There is seem to be residual scab. Area is a site of pain. Gabapentin dose was optimized. Patient is tolerating the small dose of methadone well. Defer further management and titration of pain medication to palliative care. (1) DVT (deep venous thrombosis) Qualifiers: DVT location: lower extremity Affected thrombotic vein of extremity: iliac Chronicity: acute Laterality: left Qualified Code(s): I82.422 - Acute embolism and thrombosis of left iliac vein (2) Cervical cancer Qualifiers: Malignant neoplasm of cervix location: unspecified location Qualified Code(s) : C53.9 - Malignant neoplasm of cervix uteri, unspecified
[2018-04-17] MEDS: Enoxaparin Inj 40 MG/0.4 ML Syringe SQ SCH (01:31)
[2018-04-17] MEDS: Morphine Sulfate Inj 2 MG/ML Vial IV.PUSH PRN ×3 (04:23→17:30)
[2018-04-17] MEDS: Insulin NovoLIN Regular Correctional Sugar Inj SQ SCH ×3 (05:53→17:32)
[2018-04-17 07:56] LABS: Baso % (Auto) 0.2 % (0.0-2.0); Eos % (Auto) 0.9 % (0.0-4.0); Hemoglobin 8.5 gm/dL (11.6-15.3); Lymph # (Auto) 0.3 th/mm3 (1.0-4.8); Lymph % (Auto) 6.6 % (9.0-44.0); Mean Corpuscular HGB Conc 34.1 % (32.0-36.0); Mean Platelet Volume 6.7 fL (7.0-11.0); Mono # (Auto) 0.2 th/mm3 (0.0-0.9); Mono % (Auto) 6.2 % (0.0-8.0); Neut # (Auto) 3.5 th/mm3 (1.8-7.7); Neut % (Auto) 86.1 % (16.0-70.0); Platelet Count 133 th/mm3 (150-450); Red Blood Count 2.74 mil/mm3 (4.00-5.30); Red Cell Distribution Width 16.6 % (11.6-17.2)
[2018-04-17] MEDS: Sucralfate 1 GM Tablet PO SCH ×4 (08:18→22:51)
[2018-04-17] MEDS: levoFLOXacin 500 MG Tablet PO SCH (08:18)
[2018-04-17] MEDS: Methadone 10 MG Tablet PO SCH ×3 (08:18→22:48)
[2018-04-17] MEDS: Gabapentin 300 MG Capsule PO SCH ×3 (08:19→17:27)
[2018-04-17] MEDS: Sodium Chloride 0.9% 2 ML Flush BID IV.FLUSH SCH ×2 (08:19→22:52)
--- NOTE | 2018-04-17 11:19 | P.PN ---
Subjective Interval history: Patient is complaining of left-sided stomach and side pain. She is asking for a pain pill. She denies any fever or chills. She denies any chest pain or shortness of breath. She denies any nausea or vomiting. She says that the left leg hurts off and on. Physical Exam Vital signs: Vital Signs 04/16/18 12:00 04/16/18 12:47 04/16/18 16:00 Temperature 97.5 F L 100.2 F H Pulse Rate 70 84 Respiratory Rate 16 16 18 Blood Pressure 132/71 114/70 Pulse Oximetry 98 97 04/16/18 20:00 04/16/18 21:43 04/17/18 00:00 Temperature 98.0 F 97.8 F Pulse Rate 79 75 Respiratory Rate 16 18 16 Blood Pressure 108/64 121/67 Pulse Oximetry 97 99 04/17/18 04:00 04/17/18 04:25 04/17/18 08:00 Temperature 99.0 F 98.2 F Pulse Rate 89 92 H Respiratory Rate 16 16 20 Blood Pressure 109/67 103/58 L Pulse Oximetry 100 96 04/17/18 09:56 Temperature Pulse Rate Respiratory Rate 16 Blood Pressure Pulse Oximetry Intake & Output 04/16/18 04/17/18 04/17/18 18:59 06:59 18:59 Intake Total 2099 621 / 621 120 / 120 Output Total 1250 / 1250 1850 / 1850 700 / 700 Balance 850 / 850 -1229 / -1229 -580 / -580 Weight 12.5 kg Intake: IV 2099 NS Inj 1,000 ML @ 125 mls/hr IV 1999 .CONT .Q8H SAMANTHA Rx#:[id number] Maxipime Inj 1,000 MG In NS Inj 100 / 100 100 ML @ 200 mls/hr IV.SIG Q12H SAMANTHA Rx#:[id number] Oral 621 / 621 120 / 120 Output: Urine 1250 / 1250 1850 / 1850 Urine Amount (Catheter) 700 / 700 Indwelling Urethral Catheter 700 / 700 Other: Date of Last Bowel Movement 04/14/18 04/14/18 04/14/18 Narrative: GENERAL: Well-developed well-nourished elderly -[place] female patient, no acute distress. Awake and alert. +Mild facial asymmetry. SKIN: Warm and dry. HEENT: Atraumatic. Normocephalic. Pupils equal and round. No scleral icterus. No injection or drainage. No nasal bleeding or discharge. Mucous membranes pink and moist. NECK: Trachea midline. No JVD. CARDIOVASCULAR: Regular rate and rhythm. RESPIRATORY: No accessory muscle use. Clear to auscultation. Breath sounds equal bilaterally. GASTROINTESTINAL: Abdomen soft, nondistended. +mild tenderness to palpation LLQ. Left flank with dry scabbing lesion. MUSCULOSKELETAL: Extremities without clubbing or cyanosis. Left leg larger than right. NEUROLOGICAL: Awake and alert. No obvious cranial nerve deficits. Motor grossly within normal limits. Able to move all extremities spontaneously. Normal speech. PSYCHIATRIC: Appropriate mood and affect; insight and judgment normal. - Urinary Catheter Management Straight Cath placed during this visit: yes, but has since been removed by the nurse Reason for continuing: Acute urinary retention Insertion date: 03/16/18 Insertion time: 13:02 Removal date: 03/16/18 Removal time: 12:04 Indwelling Urethral Catheter Cath placed during this visit: yes Reason for continuing: Acute urinary retention Insertion date: 04/11/18 Insertion time: 15:30 PUREWIC Cath placed during this visit: no Reason for continuing: Acute urinary retention Results - Labs CBC & Chem 7: 04/17/18 07:20 04/13/18 03:15 Laboratory Results - last 24 hr 04/16/18 04/16/18 04/16/18 11:57 16:42 23:19 WBC RBC Hgb Hct MCV MCH MCHC RDW Plt Count MPV Neut % (Auto) Lymph % (Auto) Swain % (Auto) Eos % (Auto) Baso % (Auto) Neut # (Auto) Lymph # (Auto) Swain # (Auto) Eos # (Auto) Baso # (Auto) WBC Differential Differential Comment POC Glucose 109 102 123 H 04/17/18 04/17/18 05:50 07:20 WBC 4.0 RBC 2.74 L Hgb 8.5 L Hct 25.0 L MCV 91.0 MCH 31.0 MCHC 34.1 RDW 16.6 Plt Count 133 L MPV 6.7 L Neut % (Auto) 86.1 H Lymph % (Auto) 6.6 L Swain % (Auto) 6.2 Eos % (Auto) 0.9 Baso % (Auto) 0.2 Neut # (Auto) 3.5 Lymph # (Auto) 0.3 L Swain # (Auto) 0.2 Eos # (Auto) 0.0 Baso # (Auto) 0.0 WBC Differential . Differential Comment Auto diff final POC Glucose 111 H Microbiology 04/13/18 04:27 Blood - Peripheral Aerobic Blood Culture - Preliminary No growth in 4 days 04/13/18 04:27 Blood - Peripheral Anaerobic Blood Culture - Preliminary No growth in 4 days 04/13/18 04:20 Blood - Peripheral Aerobic Blood Culture - Preliminary No growth in 4 days 04/13/18 04:20 Blood - Peripheral Anaerobic Blood Culture - Preliminary No growth in 4 days 04/13/18 03:15 Blood - Line Aerobic Blood Culture - Preliminary No growth in 4 days 04/13/18 03:15 Blood - Line Anaerobic Blood Culture - Preliminary No growth in 4 days 04/13/18 12:07 Stool Stool Occult Blood (BREN) - Final Hemoccult negative - Procedures EGD PROCEDURE REPORT EXAM DATE: 03/17/2018 IMPRESSIONS: 1. The esophagus appeared normal 2. Large blood clot covering 2/3rds of the stomach. No active bleeding. Suctioned as much as possible 3. Large non-bleeding ulcer, ranging between 5-9mm in size, was found in the duodenal bulb; Argon plasma coagulation was applied to the site; with complete hemostasis achieved 4. Retroflexed views revealed large blood clot EGD PROCEDURE REPORT EXAM DATE: 03/19/2018 IMPRESSIONS: 1. The esophagus appeared normal 2. Two large ulcers, measuring 20 x 30mm in size, were found in the gastric body, on the lesser curvature of the stomach, and in the gastric antrum 3. Two ulcers ranging between 3-5 mm in size were found in the 1st part of the duodenum 4. Retroflexed views revealed no abnormalities RECOMMENDATIONS: 1. Anti-reflux regimen 2. Continue PPI 3. If rebleeds needs IR consultation with L gastric artery embolization PATIENT CONDITION: stable DISPOSITION: Inpatient REPEAT EXAM: Return 1 month EGD Bailey Trevizo MD eSigned: Bailey Trevizo MD 03/19/2018 12:13 PM Assessment and Plan - Assessment (1) Abdominal pain Code(s): R10.9 - Unspecified abdominal pain Status: Resolved (2) Acute GI bleeding Code(s): K92.2 - Gastrointestinal hemorrhage, unspecified Status: Acute (3) Acute hypotension Code(s): I95.9 - Hypotension, unspecified Status: Acute (4) Upper GI bleed Code(s): K92.2 - Gastrointestinal hemorrhage, unspecified Status: Acute (5) Cervical cancer Code(s): C53.9 - Malignant neoplasm of cervix uteri, unspecified Status: Chronic (6) Diabetes Code(s): E11.9 - Type 2 diabetes mellitus without complications Status: Chronic (7) Chronic back pain Code(s): M54.9 - Dorsalgia, unspecified; G89.29 - Other chronic pain Status: Chronic (8) Hypertension Code(s): I10 - Essential (primary) hypertension Status: Chronic - Plan 63 y/o AAM with PMHx of DM and Metastatic Cervical Cancer admitted for inpatient management of upper GI bleed, now resolved, patient now pending placement. Continue rehab efforts. Sepsis Pyuria on repeat UA- catheterized specimen- 04/13 Fever - T down Hypotension- 04/15- improved Diarrhea - no WBC elevation, CXR negative - check CT of abdomen- unremarkable - lots of liquid stools - check c diff - negative - continue on IVF 125 cc/hr - Hold Reglan - ID ff. Continue on Levaquin to complete 7 day course Extensive DVT Left 04/13 - Dr. Benítez ff- heparin drip changed to Lovenox 40 mg SQ q12 04/15 - H/H appears stable, will increase Lovenox to 60mg SQ BID as recommended by hematology Anemia, acute blood loss- resolved - s/p blood transfusion of 6U pRBC's previously this admission - no active bleeding - on PPI 40 mg bid - followed by GI. Repeat EGD on 04/04 showed possible esophagitis, gastric and duodenal ulcers. - monitor on po diet Previous Upper GI bleed EGD on 03/19 showed large 2 x 3 cm ulcer, had planned for rpt EGD in 1mth Repeat EGD findings as noted above. - Continue PPI, Carafate Appreciate gastroenterology recommendations If continued bleeding, may consider bleeding scan. Shingles, resolved. Postherpetic neuralgia. s/p 7-day course of Valtrex and topical Acyclovir, stopped on 04/04 Started Gabapentin.- increased to 600 mg tid Continue Percocet as needed. -Dr. Benítez increased her pain meds - d/w Dr. Benítez 04/15. also placed on Methadone Metastatic Cervical Cancer - Patient to continue outpatient chemotherapy when ready. - Pain better controlled with Percocet. - Palliative care following, appreciate assistance Type 2 Diabetes Mellitus Accu-Cheks with sliding scale insulin coverage Blood sugar stable Diabetic diet Acute urinary retention - paz placed 04/11 Code Status: Full (1) Abdominal pain Qualifiers: Abdominal location: generalized Qualified Code(s): R10.84 - Generalized abdominal pain (5) Cervical cancer Qualifiers: Malignant neoplasm of cervix location: unspecified location Qualified Code(s) : C53.9 - Malignant neoplasm of cervix uteri, unspecified
--- NOTE | 2018-04-17 12:23 | P.PNPAL ---
Reason for Visit Reason for visit: a. To assist with evaluation and management of symptoms including:pain, constipation, debility b. To assist medical decision maker(s) with: better understanding of current medical conditions; weighing benefits/burdens of medical treatment options; making medical treatment decisions. Subjective Subjective/Interval History: Ms. Salmeron is a 63-year-old female who presented to [facility] emergency room on 03/16 with complaints of abdominal pain, black tarry stool, increased weakness and lethargy, and hypotension. She has a significant past medical history for cervical cancer with metastatic disease including retroperitoneal and lung. She has been receiving weekly chemotherapy which showed some improvement of the original tumor though she did continue to have metastatic disease to the retroperitoneum as well as lung. She was continuing systemic treatment as an outpatient and hopeful for continued disease control. She also has a past medical history of asthma, COPD, coronary artery disease, diabetes, renal insufficiency requiring urinary stent placement, hypertension, history of a perforated ulcer. Of note the patient also reports taking NSAIDs daily for pain control. Upon evaluation the patient was found to be hypotensive and severely anemic. The decision was made to admit her and to ICU for further evaluation and treatment. GI was consulted due to severe anemia and complaints of melena. Patient underwent EGD on 05/17/18 which revealed a large clot covering two thirds of the stomach and a nonbleeding ulcer in the duodenal bulb. This was clot coagulated at this time. She was started on PPI therapy diet was advanced slowly. She required hemodynamic resuscitation with multiple liters of IV fluid and blood transfusions as deemed necessary in the ICU. General surgery was also consulted due to the abdominal pain and severe anemia though felt she did not require surgical intervention at this point was managed medically. Eventually homeostasis was achieved and repeat EGD was performed on 04/04/18 which ultimately revealed a total of 4 large ulcers to which of being gastric and 2 of which being duodenal. Over the course of her stay the patient reported some leg swelling intermittently. A venous Doppler on 04/13/18 showed a mass of iliofemoral left lower extremity DVT. She originally was started on Lovenox then switched to unfractionated heparin in light of her increased GI bleeding. She required transfusion again and at this point hematology oncology was consulted regarding recommendations for anticoagulant therapy versus inferior vena cava filter placement. 04/17/18 Palliative care to follow up with symptom management as well as goals of care. The patient states that her stomach pain has somewhat improved but still complains of burning type pain to her left leg and left flank area. Her affect appears somewhat more flat today. When asked about her mood she states, 'I'm fine". Otherwise appears clinically stable. Denies any nausea or vomiting. Denies any instances of melena. Continues to work with PT though again remarks at her weakness. Today's clinical data revealed: * WBC 4.0, Hgb 8.5, HCT 25.0, platelets 133, RBC 2.74 * Hemoccult stool negative Family/Friend Interactions: Again LM for patient's daughter, Bhakti Frank to call for update Advance Directives Health Care Surrogate Name and Number: Bhakti Frank, daughter [phone] Documented care wishes:: The patient does not currently have a documented living will. She was able to complete a designation of health care surrogate form beside naming her daughter , Bhakti Frank ([phone]) as her primary HCP. She named her granddaughter, Don Frank as her alternate Significant change in goals:: No significant changes in goals. Patient continues to strive for aggressive therapy in a hopes to improve functional status and get back to chemotherapy. Objective Vital Signs: Vital Signs 04/16/18 12:47 04/16/18 16:00 04/16/18 20:00 Temperature 100.2 F H 98.0 F Pulse Rate 84 79 Respiratory Rate 16 18 16 Blood Pressure 114/70 108/64 Pulse Oximetry 97 97 04/16/18 21:43 04/17/18 00:00 04/17/18 04:00 Temperature 97.8 F 99.0 F Pulse Rate 75 89 Respiratory Rate 18 16 16 Blood Pressure 121/67 109/67 Pulse Oximetry 99 100 04/17/18 04:25 04/17/18 08:00 04/17/18 09:56 Temperature 98.2 F Pulse Rate 92 H Respiratory Rate 16 20 16 Blood Pressure 103/58 L Pulse Oximetry 96 Intake & Output 04/16/18 04/17/18 04/17/18 18:59 06:59 18:59 Intake Total 2100 / 2100 621 / 621 120 / 120 Output Total 1250 / 1250 1850 / 1850 700 / 700 Balance 850 / 850 -1229 / -1229 -580 / -580 Weight 12.5 kg Intake: IV 2100 / 2100 NS Inj 1,000 ML @ 125 mls/hr IV 1999 / 1999 .CONT .Q8H SAMANTHA Rx#:[id number] Maxipime Inj 1,000 MG In NS Inj 100 / 100 100 ML @ 200 mls/hr IV.SIG Q12H SAMANTHA Rx#:[id number] Oral 621 / 621 120 / 120 Output: Urine 1250 / 1250 1850 / 1850 Urine Amount (Catheter) 700 / 700 Indwelling Urethral Catheter 700 / 700 Other: Date of Last Bowel Movement 04/14/18 04/14/18 04/14/18 Physical Exam: CONSTITUTIONAL/GENERAL: This is an adequately nourished patient, in no apparent distress. TUBES/LINES/DRAINS: PIV, right chest wall port, Jackson cath SKIN: No jaundice, rashes, or lesions. Ecchymoses on upper extremities. Cluster type papular rash to left flank. Skin temperature appropriate. Not diaphoretic. EYES: No scleral icterus. No injection or drainage. Fundi not examined. ENT: Hearing grossly normal. Nose without bleeding or purulent drainage. Throat without visible erythema, exudates, masses, or lesions. CARDIOVASCULAR: Regular rate and rhythm without murmurs, gallops, or rubs. No JVD. LLE pedal pulse notably weaker, extremity is edematous RESPIRATORY/CHEST: Symmetric, unlabored respirations. Clear to auscultation. Breath sounds equal bilaterally. No wheezes, rales, or rhonchi. GASTROINTESTINAL: Abdomen soft, tender to light palpation left upper and lower quadrant, No guarding. Bowel sounds hypoactive GENITOURINARY: Without palpable bladder distension. Jackson catheter in place. MUSCULOSKELETAL: LLE slightly edematous painful to the touch. No mottling or clubbing. LYMPHATICS: No palpable cervical or supraclavicular adenopathy. NEUROLOGICAL: Awake and alert. Motor and sensory grossly within normal limits. Follows commands. Cognitively sharp. Moves all extremities. PSYCHIATRIC: No obvious anxiety/depression. no apparent hallucinations or other psychotic thought process. Flat affect Diagnostic Tests Laboratory: Laboratory Results - last 72 hr 04/13/18 04/14/18 04/14/18 16:30 17:52 21:04 WBC RBC Hgb Hct MCV MCH MCHC RDW Plt Count MPV Neut % (Auto) Lymph % (Auto) Crook % (Auto) Eos % (Auto) Baso % (Auto) Neut # (Auto) Lymph # (Auto) [place] # (Auto) Eos # (Auto) Baso # (Auto) WBC Differential Differential Comment APTT 46.6 H POC Glucose 117 H MTS Gel Crossmatch See Detail 04/14/18 04/15/18 04/15/18 23:38 05:51 06:00 WBC 4.5 RBC 2.73 L Hgb 8.6 L Hct 25.1 L MCV 92.0 MCH 31.7 MCHC 34.4 RDW 16.0 Plt Count 131 L MPV 6.9 L Neut % (Auto) Lymph % (Auto) [place] % (Auto) Eos % (Auto) Baso % (Auto) Neut # (Auto) Lymph # (Auto) [place] # (Auto) Eos # (Auto) Baso # (Auto) WBC Differential Differential Comment APTT POC Glucose 103 97 MTS Gel Crossmatch 04/15/18 04/15/18 04/15/18 10:55 12:28 17:21 WBC RBC Hgb Hct MCV MCH MCHC RDW Plt Count MPV Neut % (Auto) Lymph % (Auto) [place] % (Auto) Eos % (Auto) Baso % (Auto) Neut # (Auto) Lymph # (Auto) [place] # (Auto) Eos # (Auto) Baso # (Auto) WBC Differential Differential Comment APTT 38.1 H POC Glucose 99 109 MTS Gel Crossmatch 04/16/18 04/16/18 04/16/18 00:36 06:16 11:57 WBC RBC Hgb Hct MCV MCH MCHC RDW Plt Count MPV Neut % (Auto) Lymph % (Auto) Crook % (Auto) Eos % (Auto) Baso % (Auto) Neut # (Auto) Lymph # (Auto) [place] # (Auto) Eos # (Auto) Baso # (Auto) WBC Differential Differential Comment APTT POC Glucose 105 97 109 MTS Gel Crossmatch 04/16/18 04/16/18 04/17/18 16:42 23:19 05:50 WBC RBC Hgb Hct MCV MCH MCHC RDW Plt Count MPV Neut % (Auto) Lymph % (Auto) Crook % (Auto) Eos % (Auto) Baso % (Auto) Neut # (Auto) Lymph # (Auto) [place] # (Auto) Eos # (Auto) Baso # (Auto) WBC Differential Differential Comment APTT POC Glucose 102 123 H 111 H MTS Gel Crossmatch 04/17/18 04/17/18 07:20 11:52 WBC 4.0 RBC 2.74 L Hgb 8.5 L Hct 25.0 L MCV 91.0 MCH 31.0 MCHC 34.1 RDW 16.6 Plt Count 133 L MPV 6.7 L Neut % (Auto) 86.1 H Lymph % (Auto) 6.6 L Crook % (Auto) 6.2 Eos % (Auto) 0.9 Baso % (Auto) 0.2 Neut # (Auto) 3.5 Lymph # (Auto) 0.3 L Crook # (Auto) 0.2 Eos # (Auto) 0.0 Baso # (Auto) 0.0 WBC Differential . Differential Comment Auto diff final APTT POC Glucose 97 MTS Gel Crossmatch Result Diagrams: 04/17/18 07:20 04/13/18 03:15 Microbiology: Microbiology 04/13/18 04:27 Aerobic Blood Culture - Preliminary Blood - Peripheral No growth in 4 days Anaerobic Blood Culture - Preliminary No growth in 4 days 04/13/18 04:20 Aerobic Blood Culture - Preliminary Blood - Peripheral No growth in 4 days Anaerobic Blood Culture - Preliminary No growth in 4 days 04/13/18 03:15 Aerobic Blood Culture - Preliminary Blood - Line No growth in 4 days Anaerobic Blood Culture - Preliminary No growth in 4 days 04/13/18 12:07 Stool Occult Blood (BREN) - Final Stool Hemoccult negative 04/13/18 03:10 Urine Culture - Final Catheterized Urine No growth in 48 hours Procedures: 03/17/18 * EGD 04/04/18 * repeat EGD Assessment and Plan - Symptom Scale (1) Pain 0-10 Scale: Unable to quantify Comment: was started on methadone 2.5mg QD 04/15/18, increased to 2.5mg Q8H (2) Debility 0-10 Scale: Unable to quantify (3) Flat affect 0-10 Scale: Unable to quantify Comment: currently denies any mood disturbances Pertinent Non-Medical Issues: Psychosocial: Ms. Salmeron is currently single. She was born and raised in the [facility]. 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 She has two children, 1 of which who is . She currently lives with her remaining daughter Bhakti and her family. Spiritual: Mosque, her visits her regularly Legal: The patient was able to name her daughter Bhakti Frank as her primary healthcare surrogate. She named her granddaughter Chikis Frank as her alternate Ethical issues impacting care: There are currently no known ethical issues impacting care at this time Important Contacts: Bhakti Frank, daughter/primary HCS [phone] Chikis Frank, granddaughter/alternated HCS Prognosis: The patient has progressive cervical cancer with metastatic disease to the retroperitoneum and lungs. She has been unable to continue with systemic chemotherapy due to her prolonged hospitalization and debilitated status. This has also been complicated by an acute GI bleed and ulcer formation. She can definitely overcome this acute hospitalization though she has become deconditioned and frail deeming her most likely ineligible for any continuation of systemic chemotherapy or radiation. She is at further risk for increased hypercoagulability adverse effects, renal involvement, and any sequelae related to overall progression of her disease, including . Code Status: Full Code Plan: * LEGAL DECISION MAKER -the patient is currently able to participate in her own healthcare decision making. Should she become incapacitated any time she has named her daughter Bhakti Frank [phone] as her primary HCS. Designation form was signed and located in the electronic medical record * GOALS - We discussed, in the event that her condition deteriorated to the point of requiring cardiopulmonary resuscitation, would she want that. She verbalized that she wishes to remain a FULL CODE at this time. We also discussed what was important to her during this hospital admission. She states that she wants to get her pain under control, which is understandable. She wants to go home but understands that she needs to be stronger to do that. She also understands that she needs to be in a stronger physical condition to continue with aggressive chemo and radiation treatment modalities. She is aware that she may not have many choices left for systemic treatment options. She has agreed to go to SNF for the time being with the hopes of being able to get back home with her family. * CODE STATUS -FULL CODE * SYMPTOMS Pain -chronic cancer pain. Methadone was increased to 2.5 mg every 8 hours as opposed to daily. Patient has oxycodone 7.5 mg every 6 hours as needed last dose was given 04/15/18 at 9 AM. She also has morphine 2 mg IV push every 4 hours and is used approximately 8 mg in last 24 hours. She reports that she feels morphine helps her more so than the oxycodone. Goal is to stabilize patient with methadone and transition to oxycodone use for breakthrough pain as needed eventually plan to DC IV morphine. Debility - multifactorial, primary concern being progressive nature of cancer disease process. Would suggest working with PT/OT as able to. Could also consider dietary consult for calorie count to ensure adequate calorie intake as well as look at protein intake and requirements. Patient would benefit from inpatient rehab if she qualifies. Flat affect -patient currently denies any kind of mood disturbances. Denies any past history of depression. Has never been on any type of SSRI or psychotropic drug. Considering her current clinical condition and downward trajectory could possibly benefit from small dose of SSRI. Palliative care will continue to follow during hospital course as condition evolves, to assist patient/decision maker with understanding of medical conditions, weighing benefits/burdens of treatment options, for clarification of goals of treatment. Additionally will assist with any symptoms of palliative concern. Case discussed with RN (Jose) at bedside Attestation Attestation: To help prompt me to consider important information that might be impacting today's encounter and assessment, information from prior notes written by myself or my colleagues may have been "brought forward" into today's note. My signature on this note, however, is an attestation that I personally performed the exam, history, and/or decision-making noted today, and, unless otherwise indicated, the interactions with patient, family, and staff as well as the review of records all occurred today. I also attest that the listed assessment and stated plan reflect my best clinical judgment today based on the combination of historical information, prior notes, and today's exam/ interactions. When time spent is documented, it refers only to time spent today by the signer, or if indicated, combined time spent today by collaborating physician/nurse practitioner.
--- NOTE | 2018-04-17 12:37 | P.PNID ---
Subjective Remarks: Patient is a 63-year-old female, has history of metastatic cervical cancer, was apparently being seen by her oncologist and she was noted to be hypotensive. She was also complaining of abdominal pain and multiple loose dark stools of 1 day duration. She was admitted to the hospital, and had GI workup. She had 2 upper endoscopy and had shown duodenal ulcer and gastric ulcers. Looks like her hemoglobin has stabilized. Patient still complains of abdominal pain. Patient on admission was also given Rocephin for UTI. She was also treated for shingles in her left flank and received a course of Valtrex. Patient was initially in the ICU and stabilized and has been in the medical service. Since April 07 patient has had intermittent fevers. Today the fevers have been more persistent, and she was also noted to be having a lot of diarrhea. She continues to have abdominal pain. She has some coughing, but chest x-ray is normal. Patient also had urinary retention, and a Paz catheter was placed yesterday. Urinalysis is showing pyuria. 2 blood cultures were done and those are still pending. Infectious disease consultation has been requested to assist with evaluation and treatment. Notes reviewed Still with leg pain Has occasional low grade temps - not as frequent C/S negative C diff negative Has extensive DVT in LLE - on heparin GIB seem stable Antibiotics: Cefepime Fluconazole PO vanco Lines: port Past Medical History: Diabetes (Chronic) Asthma Cancer Hx of cataract removal with insertion of prosthetic lens Hx of tonsillectomy Allergies/Adverse Reactions: Allergies No Known Allergies Allergy (Verified 03/03/18 15:28) Objective Vital Signs 04/16/18 12:47 04/16/18 16:00 04/16/18 20:00 Temperature 100.2 F H 98.0 F Pulse Rate 84 79 Respiratory Rate 16 18 16 Blood Pressure 114/70 108/64 Pulse Oximetry 97 97 04/16/18 21:43 04/17/18 00:00 04/17/18 04:00 Temperature 97.8 F 99.0 F Pulse Rate 75 89 Respiratory Rate 18 16 16 Blood Pressure 121/67 109/67 Pulse Oximetry 99 100 04/17/18 04:25 04/17/18 08:00 04/17/18 09:56 Temperature 98.2 F Pulse Rate 92 H Respiratory Rate 16 20 16 Blood Pressure 103/58 L Pulse Oximetry 96 04/17/18 12:25 Temperature Pulse Rate Respiratory Rate 16 Blood Pressure Pulse Oximetry Intake & Output 04/16/18 04/17/18 04/17/18 18:59 06:59 18:59 Intake Total 2099 621 / 621 120 / 120 Output Total 1250 / 1250 1850 / 1850 700 / 700 Balance 850 / 850 -1229 / -1229 -580 / -580 Weight 12.5 kg Intake: IV 2099 NS Inj 1,000 ML @ 125 mls/hr IV 1999 .CONT .Q8H [facility] Rx#:[id number] Maxipime Inj 1,000 MG In NS Inj 100 / 100 100 ML @ 200 mls/hr IV.SIG Q12H [facility] Rx#:[id number] Oral 621 / 621 120 / 120 Output: Urine 1250 / 1250 1850 / 1850 Urine Amount (Catheter) 700 / 700 Indwelling Urethral Catheter 700 / 700 Other: Date of Last Bowel Movement 04/14/18 04/14/18 04/14/18 04/13/18 04:27 Blood - Peripheral Aerobic Blood Culture - Preliminary No growth in 4 days 04/13/18 04:27 Blood - Peripheral Anaerobic Blood Culture - Preliminary No growth in 4 days 04/13/18 04:20 Blood - Peripheral Aerobic Blood Culture - Preliminary No growth in 4 days 04/13/18 04:20 Blood - Peripheral Anaerobic Blood Culture - Preliminary No growth in 4 days 04/13/18 03:15 Blood - Line Aerobic Blood Culture - Preliminary No growth in 4 days 04/13/18 03:15 Blood - Line Anaerobic Blood Culture - Preliminary No growth in 4 days 04/13/18 12:07 Stool Stool Occult Blood (BREN) - Final Hemoccult negative 04/13/18 03:10 Catheterized Urine Urine Culture - Final No growth in 48 hours Lab - Hematology Results 04/17/18 07:20 WBC 4.0 RBC 2.74 L Hgb 8.5 L Hct 25.0 L MCV 91.0 MCH 31.0 MCHC 34.1 RDW 16.6 Plt Count 133 L MPV 6.7 L Neut % (Auto) 86.1 H Lymph % (Auto) 6.6 L [place] % (Auto) 6.2 Eos % (Auto) 0.9 Baso % (Auto) 0.2 Neut # (Auto) 3.5 Lymph # (Auto) 0.3 L [place] # (Auto) 0.2 Eos # (Auto) 0.0 Baso # (Auto) 0.0 WBC Differential . Differential Comment Auto diff final Lab - Chemistry Results 04/15/18 04/16/18 04/16/18 17:21 00:36 06:16 POC Glucose 109 105 97 04/16/18 04/16/18 04/16/18 11:57 16:42 23:19 POC Glucose 109 102 123 H 04/17/18 04/17/18 05:50 11:52 POC Glucose 111 H 97 Imaging: ITS Impressions Abdomen X-Ray 03/20/18 00:00 CONCLUSION: Nonspecific bowel gas pattern with some mildly to moderately dilated loops of small and large bowel with air. This can be seen with an ileus. Bilateral double-J stents in place. Abdomen/Pelvis CT 04/13/18 00:00 CONCLUSION: 1. Stable appearance of bilateral ureteral stents. Stable mild dilatation of the renal collecting systems. 2. Stable to slight improvement of loculated air and fluid collection in the deep left hemipelvis, possibly an abscess. 3. Moderate anasarca, slightly worse than on prior exam. 4. Pulmonary nodules at both lung bases as above, increased in size from March. 5. Moderate coronary calcifications. Chest X-Ray 04/13/18 00:00 CONCLUSION: No acute cardiopulmonary disease. Venous Doppler Study 04/13/18 00:00 CONCLUSION: 1. Massive iliofemoral left lower extremity DVT. The central component of the iliac thrombosis is not visualized. Therefore, more central extension of thrombus into the common iliac vein or IVC cannot be excluded. Physical Exam: GENERAL: Patient is a chronically ill appearing, well-developed female, awakens easily, not in respiratory distress. SKIN: Warm and dry. No generalized rash HEAD: Atraumatic. Normocephalic. No temporal wasting, or tenderness. EYES: [place] conjunctiva. No petechia or hemorrhage. No scleral icterus. No injection or drainage. EARS, NOSE AND THROAT: Nose without bleeding or purulent nasal discharge. Mucous membranes pink and moist. No oral lesions noted. No exudate. No oral thrush. NECK: Trachea midline. Supple and not tender, no meningeal signs CARDIOVASCULAR: Regular rate and rhythm. No murmurs, rubs or gallops heard RESPIRATORY: Clear to auscultation. Breath sounds equal bilaterally. No rales , wheezing or rhonchi. Decreased breath sounds at bases. Port in R upper chest , accessed, not tender, no redness, tunnelled portion looks ok ABDOMEN: Soft, diffuse tenderness, nondistended. Bowel sounds present and normoactive. No guarding. No rebound. No organomegaly. EXTREMITIES: No clubbing, cyanosis. LLE is markedly larger compared to RLE, no calf tenderness, no Tin's sign. : Paz cath in place, urine looks clear NEUROLOGICAL: Awake and alert. Cranial nerves grossly intact. Motor grossly within normal limits. PSYCHIATRIC: Normal affect, calm and cooperative. LINE: Port no evidence of infection Assessment and Plan - Plan Impression Fevers since 04/07, likely due to extensive DVT - has (+) UA, urinary retention, now with paz - has diarrhea, R/O C diff DVT LLE (+) UA Recent GIB has DU and Metastatic cervical CA Recommendation Continue Levaquin and complete 7 days of Abx for (+)UA - end date ordered Follow temps MOnitor progress ON anticoagulation for DVT LLE Seems clinically stable from ID standpoint I will be available prn Please call if with any new ID issue or question
--- NOTE | 2018-04-17 15:40 | P.PNONC ---
Subjective Interval history: Patient sleeping on approach, awakens easily to voice. She reports "not feeling too good today. She complains of left lower quadrant abdominal pain and swelling. She has intermittent left lower extremity pain. She denies any bleeding. Objective Vital Signs/Intake & Output: Vital Signs 04/16/18 16:00 04/16/18 20:00 04/16/18 21:43 Temperature 100.2 F H 98.0 F Pulse Rate 84 79 Respiratory Rate 18 16 18 Blood Pressure 114/70 108/64 Pulse Oximetry 97 97 04/17/18 00:00 04/17/18 04:00 04/17/18 04:25 Temperature 97.8 F 99.0 F Pulse Rate 75 89 Respiratory Rate 16 16 16 Blood Pressure 121/67 109/67 Pulse Oximetry 99 100 04/17/18 08:00 04/17/18 09:56 04/17/18 12:00 Temperature 98.2 F 98.8 F Pulse Rate 92 H 82 Respiratory Rate 20 16 20 Blood Pressure 103/58 L 124/71 Pulse Oximetry 96 97 04/17/18 12:25 Temperature Pulse Rate Respiratory Rate 16 Blood Pressure Pulse Oximetry Intake & Output 04/16/18 04/17/18 04/17/18 18:59 06:59 18:59 Intake Total 2100 / 2100 621 / 621 120 / 120 Output Total 1250 / 1250 1850 / 1850 700 / 700 Balance 850 / 850 -1229 / -1229 -580 / -580 Weight 12.5 kg Intake: IV 2100 / 2100 NS Inj 1,000 ML @ 125 mls/hr IV 1999 / 1999 .CONT .Q8H [facility] Rx#:[id number] Maxipime Inj 1,000 MG In NS Inj 100 / 100 100 ML @ 200 mls/hr IV.SIG Q12H [facility] Rx#:[id number] Oral 621 / 621 120 / 120 Output: Urine 1250 / 1250 1850 / 1850 Urine Amount (Catheter) 700 / 700 Indwelling Urethral Catheter 700 / 700 Other: Date of Last Bowel Movement 04/14/18 04/14/18 04/14/18 Result Diagrams: 04/18/18 06:15 04/18/18 06:15 Laboratory Results: Laboratory Results - last 24 hr 04/16/18 04/16/18 04/17/18 16:42 23:19 05:50 WBC RBC Hgb Hct MCV MCH MCHC RDW Plt Count MPV Neut % (Auto) Lymph % (Auto) [place] % (Auto) Eos % (Auto) Baso % (Auto) Neut # (Auto) Lymph # (Auto) [place] # (Auto) Eos # (Auto) Baso # (Auto) WBC Differential Differential Comment POC Glucose 102 123 H 111 H 04/17/18 04/17/18 07:20 11:52 WBC 4.0 RBC 2.74 L Hgb 8.5 L Hct 25.0 L MCV 91.0 MCH 31.0 MCHC 34.1 RDW 16.6 Plt Count 133 L MPV 6.7 L Neut % (Auto) 86.1 H Lymph % (Auto) 6.6 L [place] % (Auto) 6.2 Eos % (Auto) 0.9 Baso % (Auto) 0.2 Neut # (Auto) 3.5 Lymph # (Auto) 0.3 L [place] # (Auto) 0.2 Eos # (Auto) 0.0 Baso # (Auto) 0.0 WBC Differential . Differential Comment Auto diff final POC Glucose 97 Culture Results: Microbiology 04/13/18 04:27 Aerobic Blood Culture - Preliminary Blood - Peripheral No growth in 4 days Anaerobic Blood Culture - Preliminary No growth in 4 days 04/13/18 04:20 Aerobic Blood Culture - Preliminary Blood - Peripheral No growth in 4 days Anaerobic Blood Culture - Preliminary No growth in 4 days 04/13/18 03:15 Aerobic Blood Culture - Preliminary Blood - Line No growth in 4 days Anaerobic Blood Culture - Preliminary No growth in 4 days 04/13/18 12:07 Stool Occult Blood (BREN) - Final Stool Hemoccult negative 04/13/18 03:10 Urine Culture - Final Catheterized Urine No growth in 48 hours Medications: Active Medications Generic Name Dose Route Start Last Admin Trade Name Freq PRN Reason Stop Dose Admin Albuterol 1 ampul 03/16/18 16:09 03/20/18 20:31 Duoneb Neb (Prn) NEB 1 ampul Q2HR NEB PRN Administration WHEEZING Gabapentin 600 mg 04/14/18 13:10 04/17/18 12:21 Neurontin PO 600 mg TID [facility] Administration Acetaminophen 1,000 mg in 100 mls @ 400 mls/hr 03/17/18 10:00 04/14/18 17:15 Ofirmev Inj IV.SIG Infused Q6H PRN Infusion PAIN SCALE 1 TO 10 Insulin Human Regular 0 units 03/16/18 18:00 04/17/18 11:54 Novolin R Correctional Sugar Inj SQ Not Given Q6HR [facility] Protocol Levofloxacin 500 mg 04/16/18 15:15 04/17/18 08:18 Levaquin PO 04/21/18 15:14 500 mg DAILY [facility] Administration Morphine Sulfate 2 mg 04/15/18 13:00 04/17/18 12:21 Morphine Inj IV.PUSH 2 mg Q4H PRN Administration BREAKTHROUGH PAIN Ondansetron HCl 4 mg 03/27/18 17:53 03/29/18 04:37 Zofran Inj IV.PUSH 4 mg Q6H PRN Administration nausea/vomiting Oxycodone/Acetaminophen 1 tab 04/12/18 13:41 04/15/18 09:09 Percocet 7.5/325 Mg PO 1 tab Q6H PRN Administration PAIN SCALE 6 TO 10 Pantoprazole Sodium 40 mg 04/05/18 21:00 04/17/18 08:19 Protonix PO 40 mg BID [facility] Administration Sodium Chloride 2 ml 03/20/18 09:00 04/17/18 08:19 Ns Flush IV.FLUSH 2 ml BID [facility] Administration Sucralfate 1 gm 04/05/18 17:00 04/17/18 12:21 Carafate PO 1 gm ACHS [facility] Administration Objective Remarks: GENERAL: Elderly female patient, appears older than stated age, in no acute distress. SKIN: Warm and dry. HEAD: Normocephalic. EYES: No scleral icterus. No injection or drainage. NECK: Supple, trachea midline. CARDIOVASCULAR: Regular rate and rhythm without murmurs. RESPIRATORY: Breath sounds equal bilaterally. No accessory muscle use. GASTROINTESTINAL: Abdomen soft, tender LLQ, nondistended. EXTREMITIES: No cyanosis. LLE>RLE MUSCULOSKELETAL: Decreased muscle tone. NEUROLOGICAL: No obvious focal deficit. Awake, alert, and oriented x3. PSYCHIATRIC: Appropriate mood and affect; insight and judgment normal. Assessment/Plan (1) DVT (deep venous thrombosis) Code(s): I82.409 - Acute embolism and thrombosis of unspecified deep veins of unspecified lower extremity Status: Acute (2) Cervical cancer Code(s): C53.9 - Malignant neoplasm of cervix uteri, unspecified Status: Chronic - Plan 63-year-old woman with metastatic/locally advanced cervical cancer. Her course is complicated by gastric and duodenal ulcer. She developed a left lower extremity deep vein thromboses. 1. Hemoglobin stable at 8.5 mg/dL. Subjectively denies bleeding. No bleeding noted on exam. Continue therapeutic dose of Lovenox at 60 mg twice daily. 2. Cervical cancer. Patient is interested in palliative therapy coordinated by Dr. Marks. She will follow-up with Dr. Marks on an outpatient basis. 3. Chronic pain/cancer related pain. Continue current pain medications. Defer further management to palliative care. - Attending Statement The exam, history, and the medical decision-making described in the above note were completed with the assistance of the mid-level provider. I reviewed and agree with the findings presented. I attest that I had a [id number] encounter with the patient on the same day, and personally performed and documented my assessment and findings in the medical record. Patient with questions about why she has left rib pain. We discussed the presence of the zoster was treated. The gabapentin and methadone appears to be effective. She reports that the left rib pain actually has improved. She was feeling down as she needed pain medication today. The morphine helped very well. She had the same questions regarding the pelvic mass. We discussed the concern for infection versus recurrence of her cancer. Pelvic mass/abscess likely contributed to the formation of the left lower extremity deep vein thromboses. She is tolerating the anticoagulation with low molecular weight heparin Lovenox 40 mg subcu every 12 hours. Her hemoglobin is stable. There is no evidence of bleeding. The left leg is unchanged. She has no chest pain or shortness of breath. We have been unable to avoid inferior vena cava filter placement. We discussed continuing the current dose. Her questions were answered to her satisfaction. (1) DVT (deep venous thrombosis) Qualifiers: DVT location: lower extremity Affected thrombotic vein of extremity: iliac Chronicity: acute Laterality: left Qualified Code(s): I82.422 - Acute embolism and thrombosis of left iliac vein (2) Cervical cancer Qualifiers: Malignant neoplasm of cervix location: unspecified location Qualified Code(s) : C53.9 - Malignant neoplasm of cervix uteri, unspecified
[2018-04-17] MEDS: Enoxaparin Inj 60 MG/0.6 ML Syringe SQ SCH (22:51)
[2018-04-18] MEDS: Methadone 10 MG Tablet PO SCH ×2 (06:15→14:45)
[2018-04-18 07:36] LABS: Baso % (Auto) 0.1 % (0.0-2.0); Eos % (Auto) 0.9 % (0.0-4.0); Hematocrit 24.6 % (35.0-46.0); Hemoglobin 8.3 gm/dL (11.6-15.3); Lymph # (Auto) 0.2 th/mm3 (1.0-4.8); Lymph % (Auto) 4.6 % (9.0-44.0); Mean Corpuscular HGB Conc 33.6 % (32.0-36.0); Mean Corpuscular Hemoglobin 31.5 pg (27.0-34.0); Mean Corpuscular Volume 93.7 fL (80.0-100.0); Mean Platelet Volume 6.6 fL (7.0-11.0); Mono # (Auto) 0.2 th/mm3 (0.0-0.9); Neut # (Auto) 3.4 th/mm3 (1.8-7.7); Neut % (Auto) 88.4 % (16.0-70.0); Platelet Count 131 th/mm3 (150-450); Red Blood Count 2.63 mil/mm3 (4.00-5.30); Red Cell Distribution Width 16.4 % (11.6-17.2); White Blood Count 3.9 th/mm3 (4.0-11.0)
[2018-04-18 07:49] LABS: Anion Gap 9 meq/L (5-15); Blood Urea Nitrogen 11 mg/dL (7-18); Calcium 9.3 mg/dL (8.5-10.1); Carbon Dioxide 24.2 meq/L (21.0-32.0); Chloride 105 meq/L (98-107); Glomerular Filtration Rate Greater Than 89 mL/min (>89); Glucose,Random 86 mg/dL (74-106); Potassium 3.8 meq/L (3.5-5.1); Sodium 138 meq/L (136-145)
[2018-04-18] MEDS: Insulin NovoLIN Regular Correctional Sugar Inj SQ SCH ×4 (07:53→18:06)
[2018-04-18] MEDS: Gabapentin 300 MG Capsule PO SCH ×3 (08:43→17:09)
[2018-04-18] MEDS: levoFLOXacin 500 MG Tablet PO SCH (08:43)
[2018-04-18] MEDS: Enoxaparin Inj 60 MG/0.6 ML Syringe SQ SCH ×2 (08:43→21:23)
[2018-04-18] MEDS: Sucralfate 1 GM Tablet PO SCH ×4 (08:43→21:24)
[2018-04-18] MEDS: Sodium Chloride 0.9% 2 ML Flush BID IV.FLUSH SCH ×2 (08:44→21:24)
--- NOTE | 2018-04-18 13:30 | P.PN ---
Subjective Interval history: Follow up on patient with sepsis, metastatic cervical cancer, DVT LLE. Patient seen and examined. Patient says she is ok. She continues to have left lower abdominal pain off and on. She continues to have intermittent LLE pain. She denies any fever or chills. She denies any chest pain or dyspnea. She denies any nausea or vomiting. She ate about 50% of breakfast. Physical Exam Vital signs: Vital Signs 04/17/18 16:00 04/17/18 17:31 04/17/18 20:00 Temperature 100.9 F H 98.2 F Pulse Rate 80 84 Respiratory Rate 20 16 16 Blood Pressure 147/77 H 97/58 L Pulse Oximetry 100 97 04/18/18 00:00 04/18/18 04:00 04/18/18 08:00 Temperature 100.2 F H 99.7 F H 97.6 F Pulse Rate 85 73 65 Respiratory Rate 16 16 20 Blood Pressure 102/61 96/53 L 127/66 Pulse Oximetry 96 98 98 04/18/18 11:41 Temperature 98 F Pulse Rate 73 Respiratory Rate 14 Blood Pressure 96/60 L Pulse Oximetry 94 L Intake & Output 04/17/18 04/18/18 04/18/18 18:59 06:59 18:59 Intake Total 120 / 120 100 / 100 240 / 240 Output Total 1250 / 1250 600 / 600 750 / 750 Balance -1130 / -1130 -500 / -500 -510 / -510 Weight 12.5 kg Intake: IV 100 / 100 Ofirmev Inj 1,000 mg In 100 ml 100 / 100 @ 400 mls/hr IV.SIG Q6H [facility] Rx# :[id number] Oral 120 / 120 240 / 240 Output: Urine 550 / 550 600 / 600 Urine Amount (Catheter) 700 / 700 750 / 750 Indwelling Urethral Catheter 700 / 700 750 / 750 Other: Date of Last Bowel Movement 04/14/18 04/14/18 Narrative: GENERAL: Well-developed well-nourished elderly -[place] female patient, no acute distress. Awake and alert. Appears comfortable lying in bed. +Mild facial asymmetry. SKIN: Warm and dry. HEENT: Atraumatic. Normocephalic. Pupils equal and round. No scleral icterus. No injection or drainage. No nasal bleeding or discharge. Mucous membranes pink and moist. NECK: Trachea midline. CARDIOVASCULAR: Regular rate and rhythm. RESPIRATORY: No accessory muscle use. Clear to auscultation. Breath sounds equal bilaterally. GASTROINTESTINAL: Abdomen soft, nondistended. +mild tenderness to palpation LLQ. Left flank with dry scabbing lesions. GENITOURINARY: Paz in place with yellow urine in bag MUSCULOSKELETAL: Extremities without clubbing or cyanosis. Left leg larger than right. +tender to palpation. NEUROLOGICAL: Awake and alert. No obvious cranial nerve deficits. Motor grossly within normal limits. Able to move all extremities spontaneously. Normal speech. PSYCHIATRIC: Appropriate mood and affect; insight and judgment normal. - Urinary Catheter Management Straight Cath placed during this visit: yes, but has since been removed by the nurse Reason for continuing: Acute urinary retention Insertion date: 03/16/18 Insertion time: 13:02 Removal date: 03/16/18 Removal time: 12:04 Indwelling Urethral Catheter Cath placed during this visit: yes Reason for continuing: Acute urinary retention Insertion date: 04/11/18 Insertion time: 15:30 PUREWIC Cath placed during this visit: no Reason for continuing: Acute urinary retention Results - Labs CBC & Chem 7: 04/18/18 06:15 04/18/18 06:15 Laboratory Results - last 24 hr 04/17/18 04/18/18 04/18/18 17:31 01:11 06:11 WBC RBC Hgb Hct MCV MCH MCHC RDW Plt Count MPV Neut % (Auto) Lymph % (Auto) [place] % (Auto) Eos % (Auto) Baso % (Auto) Neut # (Auto) Lymph # (Auto) [place] # (Auto) Eos # (Auto) Baso # (Auto) WBC Differential Differential Comment Sodium Potassium Chloride Carbon Dioxide Anion Gap BUN Creatinine Estimated GFR POC Glucose 124 H 111 H 97 Random Glucose Calcium 04/18/18 04/18/18 04/18/18 06:15 06:15 11:42 WBC 3.9 L RBC 2.63 L Hgb 8.3 L Hct 24.6 L MCV 93.7 MCH 31.5 MCHC 33.6 RDW 16.4 Plt Count 131 L MPV 6.6 L Neut % (Auto) 88.4 H Lymph % (Auto) 4.6 L [place] % (Auto) 6.0 Eos % (Auto) 0.9 Baso % (Auto) 0.1 Neut # (Auto) 3.4 Lymph # (Auto) 0.2 L [place] # (Auto) 0.2 Eos # (Auto) 0.0 Baso # (Auto) 0.0 WBC Differential . Differential Comment Auto diff final Sodium 138 Potassium 3.8 Chloride 105 Carbon Dioxide 24.2 Anion Gap 9 BUN 11 Creatinine 0.73 Estimated GFR Greater than 89 POC Glucose 121 H Random Glucose 86 Calcium 9.3 Microbiology 04/13/18 04:27 Blood - Peripheral Aerobic Blood Culture - Final No growth in 5 days 04/13/18 04:27 Blood - Peripheral Anaerobic Blood Culture - Final No growth in 5 days 04/13/18 04:20 Blood - Peripheral Aerobic Blood Culture - Final No growth in 5 days 04/13/18 04:20 Blood - Peripheral Anaerobic Blood Culture - Final No growth in 5 days 04/13/18 03:15 Blood - Line Aerobic Blood Culture - Final No growth in 5 days 04/13/18 03:15 Blood - Line Anaerobic Blood Culture - Final No growth in 5 days - Procedures EGD PROCEDURE REPORT EXAM DATE: 03/17/2018 IMPRESSIONS: 1. The esophagus appeared normal 2. Large blood clot covering 2/3rds of the stomach. No active bleeding. Suctioned as much as possible 3. Large non-bleeding ulcer, ranging between 5-9mm in size, was found in the duodenal bulb; Argon plasma coagulation was applied to the site; with complete hemostasis achieved 4. Retroflexed views revealed large blood clot EGD PROCEDURE REPORT EXAM DATE: 03/19/2018 IMPRESSIONS: 1. The esophagus appeared normal 2. Two large ulcers, measuring 20 x 30mm in size, were found in the gastric body, on the lesser curvature of the stomach, and in the gastric antrum 3. Two ulcers ranging between 3-5 mm in size were found in the 1st part of the duodenum 4. Retroflexed views revealed no abnormalities RECOMMENDATIONS: 1. Anti-reflux regimen 2. Continue PPI 3. If rebleeds needs IR consultation with L gastric artery embolization PATIENT CONDITION: stable DISPOSITION: Inpatient REPEAT EXAM: Return 1 month EGD Bailey Trevizo MD eSigned: Bailey Trevizo MD 03/19/2018 12:13 PM Assessment and Plan - Assessment (1) Abdominal pain Code(s): R10.9 - Unspecified abdominal pain Status: Resolved (2) Acute GI bleeding Code(s): K92.2 - Gastrointestinal hemorrhage, unspecified Status: Acute (3) Acute hypotension Code(s): I95.9 - Hypotension, unspecified Status: Acute (4) Upper GI bleed Code(s): K92.2 - Gastrointestinal hemorrhage, unspecified Status: Acute (5) Cervical cancer Code(s): C53.9 - Malignant neoplasm of cervix uteri, unspecified Status: Chronic (6) Diabetes Code(s): E11.9 - Type 2 diabetes mellitus without complications Status: Chronic (7) Chronic back pain Code(s): M54.9 - Dorsalgia, unspecified; G89.29 - Other chronic pain Status: Chronic (8) Hypertension Code(s): I10 - Essential (primary) hypertension Status: Chronic - Plan 63 y/o AAM with PMHx of DM and Metastatic Cervical Cancer admitted for inpatient management of upper GI bleed, now resolved, patient now pending placement. Continue rehab efforts. Hypotensive, suspect secondary to narcotic side effect, asymptomatic -hold parameters placed on narcotics -monitor BP Sepsis, resolved Pyuria on repeat UA- catheterized specimen- 04/13 Fever, Tmax 100.2 overnight Diarrhea - no WBC elevation, CXR negative - check CT of abdomen- unremarkable - lots of liquid stools - check c diff - negative - Hold Reglan - ID ff. Continue on Levaquin to complete 7 day course - 04/21/18 Extensive DVT Left 04/13 - Dr. Benítez ff- heparin drip changed to Lovenox 40 mg SQ q12 04/15 - H/H appears stable, increased to Lovenox to 60mg SQ BID as recommended by hematology 04/17 Anemia, acute blood loss- resolved - s/p blood transfusion of 6U pRBC's previously this admission - no active bleeding - on PPI 40 mg bid - followed by GI. Repeat EGD on 04/04 showed possible esophagitis, gastric and duodenal ulcers. - monitor on po diet Previous Upper GI bleed EGD on 03/19 showed large 2 x 3 cm ulcer, had planned for rpt EGD in 1mth Repeat EGD findings as noted above. - Continue PPI, Carafate - Appreciate gastroenterology recommendations. If continued bleeding, may consider bleeding scan. Shingles, resolved. Postherpetic neuralgia. s/p 7-day course of Valtrex and topical Acyclovir, stopped on 04/04 Started Gabapentin.- increased to 600 mg tid Continue Percocet as needed. - Dr. Benítez increased her pain meds - d/w Dr. Benítez 04/15. also placed on Methadone Metastatic Cervical Cancer - Patient to continue outpatient chemotherapy when ready. - Pain management with bowel regimen - Palliative care following, appreciate assistance Type 2 Diabetes Mellitus Accu-Cheks with sliding scale insulin coverage Blood sugar stable Diabetic diet Acute urinary retention - paz placed 04/11 DVT prophylaxis - patient is on therapeutic Lovenox Code Status: Full Discussed Condition With: patient, nursing staff, Dr. Avila Discharge Planning: Difficult placement. No SNF days left. Daily PT. CM assisting with ongoing discharge planning. (1) Abdominal pain Qualifiers: Abdominal location: generalized Qualified Code(s): R10.84 - Generalized abdominal pain (5) Cervical cancer Qualifiers: Malignant neoplasm of cervix location: unspecified location Qualified Code(s) : C53.9 - Malignant neoplasm of cervix uteri, unspecified
[2018-04-18] MEDS ORDERED: Acetaminophen 325 MG Tablet PO PRN (13:32)
[2018-04-18] MEDS ORDERED: Sodium Chlor 0.9% Inj 250 ML IV.SIG SCH ×2 (18:59→22:00)
--- NOTE | 2018-04-18 19:08 | P.PNONC ---
Subjective Interval history: "My oxygen is going down" Discussed with patient's nurse. Her systolic blood pressure is low. Her oxygenation is actually good. Patient confirms she has no chest pain or shortness of breath. Somehow she does not feel well. She still has pain. She is worried about her methadone being stopped. Family is at bedside providing emotional support. We discussed the plan to give a bolus of fluid. We will monitor closely for any signs of bleeding. Objective Vital Signs/Intake & Output: Vital Signs 04/17/18 20:00 04/18/18 00:00 04/18/18 04:00 Temperature 98.2 F 100.2 F H 99.7 F H Pulse Rate 84 85 73 Respiratory Rate 16 16 16 Blood Pressure 97/58 L 102/61 96/53 L Pulse Oximetry 97 96 98 04/18/18 08:00 04/18/18 11:41 04/18/18 15:50 Temperature 97.6 F 98 F 99 F Pulse Rate 65 73 89 Respiratory Rate 20 14 14 Blood Pressure 127/66 96/60 L 90/52 L Pulse Oximetry 98 94 L 100 Intake & Output 04/18/18 04/18/18 04/19/18 06:59 18:59 06:59 Intake Total 100 / 100 600 / 600 Output Total 600 / 600 1250 / 1250 Balance -500 / -500 -650 / -650 Weight 12.5 kg Intake: IV 100 / 100 Ofirmev Inj 1,000 mg In 100 ml 100 / 100 @ 400 mls/hr IV.SIG Q6H PRN Rx# :[id number] Oral 600 / 600 Output: Urine 600 / 600 Urine Amount (Catheter) 1250 / 1250 Indwelling Urethral Catheter 1250 / 1250 Other: Date of Last Bowel Movement 04/14/18 Result Diagrams: 04/18/18 06:15 04/18/18 06:15 Laboratory Results: Laboratory Results - last 24 hr 04/18/18 04/18/18 04/18/18 01:11 06:11 06:15 WBC 3.9 L RBC 2.63 L Hgb 8.3 L Hct 24.6 L MCV 93.7 MCH 31.5 MCHC 33.6 RDW 16.4 Plt Count 131 L MPV 6.6 L Neut % (Auto) 88.4 H Lymph % (Auto) 4.6 L [place] % (Auto) 6.0 Eos % (Auto) 0.9 Baso % (Auto) 0.1 Neut # (Auto) 3.4 Lymph # (Auto) 0.2 L [place] # (Auto) 0.2 Eos # (Auto) 0.0 Baso # (Auto) 0.0 WBC Differential . Differential Comment Auto diff final Sodium Potassium Chloride Carbon Dioxide Anion Gap BUN Creatinine Estimated GFR POC Glucose 111 H 97 Random Glucose Calcium 04/18/18 04/18/18 04/18/18 06:15 11:42 17:31 WBC RBC Hgb Hct MCV MCH MCHC RDW Plt Count MPV Neut % (Auto) Lymph % (Auto) [place] % (Auto) Eos % (Auto) Baso % (Auto) Neut # (Auto) Lymph # (Auto) [place] # (Auto) Eos # (Auto) Baso # (Auto) WBC Differential Differential Comment Sodium 138 Potassium 3.8 Chloride 105 Carbon Dioxide 24.2 Anion Gap 9 BUN 11 Creatinine 0.73 Estimated GFR Greater than 89 POC Glucose 121 H 116 H Random Glucose 86 Calcium 9.3 Culture Results: Microbiology 04/13/18 04:27 Aerobic Blood Culture - Final Blood - Peripheral No growth in 5 days Anaerobic Blood Culture - Final No growth in 5 days 04/13/18 04:20 Aerobic Blood Culture - Final Blood - Peripheral No growth in 5 days Anaerobic Blood Culture - Final No growth in 5 days 04/13/18 03:15 Aerobic Blood Culture - Final Blood - Line No growth in 5 days Anaerobic Blood Culture - Final No growth in 5 days 04/13/18 12:07 Stool Occult Blood (BREN) - Final Stool Hemoccult negative Medications: Active Medications Generic Name Dose Route Start Last Admin Trade Name Freq PRN Reason Stop Dose Admin Albuterol 1 ampul 03/16/18 16:09 03/20/18 20:31 Duoneb Neb (Prn) NEB 1 ampul Q2HR NEB PRN Administration WHEEZING Enoxaparin Sodium 60 mg 04/17/18 21:00 04/18/18 08:43 Lovenox Inj SQ 60 mg Q12HR SAMANTHA Administration Gabapentin 600 mg 04/14/18 13:10 04/18/18 17:09 Neurontin PO 600 mg TID SAMANTHA Administration Insulin Human Regular 0 units 03/16/18 18:00 04/18/18 18:06 Novolin R Correctional Sugar Inj SQ Not Given Q6HR SAMANTHA Protocol Lactulose 30 ml 10/05/18 16:09 04/18/18 17:31 Lactulose Liq PO 30 ml DAILY PRN Administration SEVERE CONSITIPATION Levofloxacin 500 mg 04/16/18 15:15 04/18/18 08:43 Levaquin PO 04/21/18 15:14 500 mg DAILY SAMANTHA Administration Methadone HCl 2.5 mg 04/17/18 15:00 04/18/18 14:45 Dolophine PO Not Given Q8H SAMANTHA Morphine Sulfate 2 mg 04/15/18 13:00 04/17/18 17:30 Morphine Inj IV.PUSH 2 mg Q4H PRN Administration BREAKTHROUGH PAIN Ondansetron HCl 4 mg 03/27/18 17:53 03/29/18 04:37 Zofran Inj IV.PUSH 4 mg Q6H PRN Administration nausea/vomiting Oxycodone/Acetaminophen 1 tab 04/12/18 13:41 04/15/18 09:09 Percocet 7.5/325 Mg PO 1 tab Q6H PRN Administration PAIN SCALE 6 TO 10 Pantoprazole Sodium 40 mg 04/05/18 21:00 04/18/18 08:43 Protonix PO 40 mg BID SAMANTHA Administration Sodium Chloride 2 ml 03/20/18 09:00 04/18/18 08:44 Ns Flush IV.FLUSH 2 ml BID SAMANTHA Administration Sucralfate 1 gm 04/05/18 17:00 04/18/18 17:08 Carafate PO 1 gm ACHS SAMANTHA Administration Objective Remarks: GENERAL: Elderly female patient, appears older than stated age, in no acute distress. SKIN: Warm and dry. HEAD: Normocephalic. EYES: No scleral icterus. No injection or drainage. NECK: Supple, trachea midline. CARDIOVASCULAR: Regular rate and rhythm without murmurs. RESPIRATORY: Breath sounds equal bilaterally. No accessory muscle use. GASTROINTESTINAL: Abdomen soft, tender LLQ, nondistended. EXTREMITIES: No cyanosis. LLE>RLE MUSCULOSKELETAL: Decreased muscle tone. NEUROLOGICAL: No obvious focal deficit. Awake, alert, and oriented x3. PSYCHIATRIC: Appropriate mood and affect; insight and judgment normal. Assessment/Plan (1) DVT (deep venous thrombosis) Code(s): I82.409 - Acute embolism and thrombosis of unspecified deep veins of unspecified lower extremity Status: Acute (2) Cervical cancer Code(s): C53.9 - Malignant neoplasm of cervix uteri, unspecified Status: Chronic - Plan 63-year-old woman with metastatic/locally advanced cervical cancer. Her course is complicated by gastric and duodenal ulcer. She developed a left lower extremity deep vein thromboses. 1. Hemoglobin stable at 8.3 mg/dL. Subjectively denies bleeding. No bleeding noted on exam. Noted to have decreased blood pressure this afternoon. Repeat blood pressure in the evening shift continue to show systolic blood pressure in the 90s. Patient is anxious. She denies any chest pain or shortness of breath. The hypotension is attributed to the increase in methadone, methadone is noted to be on hold. Recommend a trial of bolus of normal saline 250 mL's once a. She is at increased risk for bleeding. A repeat CBC will be performed. She will be offered a transfusion for any hemoglobin less than 8.0. We will monitor her response to the trial of saline bolus. Further recommendations depend on the repeat CBC. 2. Cervical cancer. Patient is interested in palliative therapy coordinated by Dr. Marks. She will follow-up with Dr. Marks on an outpatient basis. 3. Chronic pain/cancer related pain. Continue current pain medications. Defer further management to palliative care. (1) DVT (deep venous thrombosis) Qualifiers: DVT location: lower extremity Affected thrombotic vein of extremity: iliac Chronicity: acute Laterality: left Qualified Code(s): I82.422 - Acute embolism and thrombosis of left iliac vein (2) Cervical cancer Qualifiers: Malignant neoplasm of cervix location: unspecified location Qualified Code(s) : C53.9 - Malignant neoplasm of cervix uteri, unspecified
[2018-04-18] MEDS: Senna/Docusate Sodium 8.6/50 MG Tablet PO SCH (21:24)
[2018-04-18 23:06] LABS: Hematocrit 24.8 % (35.0-46.0); Hemoglobin 8.3 gm/dL (11.6-15.3); Mean Corpuscular HGB Conc 33.5 % (32.0-36.0); Mean Corpuscular Volume 92.5 fL (80.0-100.0); Mean Platelet Volume 6.5 fL (7.0-11.0); Platelet Count 130 th/mm3 (150-450); Red Blood Count 2.68 mil/mm3 (4.00-5.30); Red Cell Distribution Width 15.9 % (11.6-17.2); White Blood Count 4.5 th/mm3 (4.0-11.0)
[2018-04-19] MEDS: Methadone 10 MG Tablet PO SCH ×5 (00:15→23:20)
[2018-04-19] MEDS: Insulin NovoLIN Regular Correctional Sugar Inj SQ SCH ×4 (00:28→17:40)
--- NOTE | 2018-04-19 07:49 | P.PN ---
Subjective Interval history: Patient still having intermittent left-sided abdominal pain and left leg pain. Patient's been having low blood pressure secondary to increased methadone dosing. Small IV fluid bolus given yesterday with some transient improvement in blood pressure. BP 93/55. Discussed with nursing staff, no adverse events noted overnight. Patient had a BM. Physical Exam Vital signs: Vital Signs 04/18/18 08:00 04/18/18 11:41 04/18/18 15:50 Temperature 97.6 F 98 F 99 F Pulse Rate 65 73 89 Respiratory Rate 20 14 14 Blood Pressure 127/66 96/60 L 90/52 L Pulse Oximetry 98 94 L 100 04/18/18 20:00 04/18/18 22:17 04/19/18 00:00 Temperature 99.4 F 97.7 F Pulse Rate 86 86 86 Respiratory Rate 16 16 Blood Pressure 96/56 L 103/86 105/59 L Pulse Oximetry 97 97 04/19/18 04:00 Temperature 98.3 F Pulse Rate 86 Respiratory Rate 16 Blood Pressure 98/57 L Pulse Oximetry 100 Intake & Output 04/18/18 04/19/18 04/19/18 18:59 06:59 18:59 Intake Total 600 / 600 250 / 250 Output Total 1250 / 1250 900 / 900 Balance -650 / -650 -650 / -650 Weight 20.7 kg Intake: IV 250 / 250 NS Inj 250 ML @ 500 mls/hr IV. 250 / 250 SIG BOLUS SAMANTHA Rx#:[id number] Oral 600 / 600 Output: Urine 900 / 900 Urine Amount (Catheter) 1250 / 1250 Indwelling Urethral Catheter 1250 / 1250 Other: Date of Last Bowel Movement 04/14/18 04/15/18 Narrative: GENERAL: Well-developed well-nourished elderly -[place] female patient, no acute distress. Awake and alert. Calm, sitting in bedside chair. +Mild facial asymmetry. SKIN: Warm and dry. No generalized rash. HEENT: Atraumatic. Normocephalic. Pupils equal and round. No scleral icterus. No injection or drainage. No nasal bleeding or discharge. Mucous membranes pink and moist. NECK: Trachea midline. CARDIOVASCULAR: Regular rate and rhythm. RESPIRATORY: No accessory muscle use. Clear to auscultation. Breath sounds equal bilaterally. GASTROINTESTINAL: Abdomen soft, nondistended. +mild tenderness to palpation LLQ. Left flank with dry scabbing lesions. GENITOURINARY: Paz in place with yellow urine in bag MUSCULOSKELETAL: Extremities without clubbing or cyanosis. Left leg larger than right. +tender to palpation. NEUROLOGICAL: Awake and alert. No obvious cranial nerve deficits. Motor grossly within normal limits. Able to move all extremities spontaneously. Normal speech. PSYCHIATRIC: Appropriate mood and affect; insight and judgment normal. - Urinary Catheter Management Straight Cath placed during this visit: yes, but has since been removed by the nurse Reason for continuing: Acute urinary retention Insertion date: 03/16/18 Insertion time: 13:02 Removal date: 03/16/18 Removal time: 12:04 Indwelling Urethral Catheter Cath placed during this visit: yes Reason for continuing: Acute urinary retention Insertion date: 04/11/18 Insertion time: 15:30 PUREWIC Cath placed during this visit: no Reason for continuing: Acute urinary retention Results - Labs CBC & Chem 7: 04/18/18 22:42 04/18/18 06:15 Laboratory Results - last 24 hr 04/18/18 04/18/18 04/18/18 06:15 11:42 17:31 WBC RBC Hgb Hct MCV MCH MCHC RDW Plt Count MPV Sodium 138 Potassium 3.8 Chloride 105 Carbon Dioxide 24.2 Anion Gap 9 BUN 11 Creatinine 0.73 Estimated GFR Greater than 89 POC Glucose 121 H 116 H Random Glucose 86 Calcium 9.3 Blood Type Antibody Screen MTS Gel Crossmatch Bld Prod Order Comment 04/18/18 04/18/18 04/19/18 22:42 22:42 00:25 WBC 4.5 RBC 2.68 L Hgb 8.3 L Hct 24.8 L MCV 92.5 MCH 31.0 MCHC 33.5 RDW 15.9 Plt Count 130 L MPV 6.5 L Sodium Potassium Chloride Carbon Dioxide Anion Gap BUN Creatinine Estimated GFR POC Glucose 117 H Random Glucose Calcium Blood Type O Positive Antibody Screen Negative MTS Gel Crossmatch See Detail Bld Prod Order Comment 04/19/18 06:14 WBC RBC Hgb Hct MCV MCH MCHC RDW Plt Count MPV Sodium Potassium Chloride Carbon Dioxide Anion Gap BUN Creatinine Estimated GFR POC Glucose 105 Random Glucose Calcium Blood Type Antibody Screen MTS Gel Crossmatch Bld Prod Order Comment Microbiology 04/13/18 04:27 Blood - Peripheral Aerobic Blood Culture - Final No growth in 5 days 04/13/18 04:27 Blood - Peripheral Anaerobic Blood Culture - Final No growth in 5 days 04/13/18 04:20 Blood - Peripheral Aerobic Blood Culture - Final No growth in 5 days 04/13/18 04:20 Blood - Peripheral Anaerobic Blood Culture - Final No growth in 5 days 04/13/18 03:15 Blood - Line Aerobic Blood Culture - Final No growth in 5 days 04/13/18 03:15 Blood - Line Anaerobic Blood Culture - Final No growth in 5 days - Procedures EGD PROCEDURE REPORT EXAM DATE: 03/17/2018 IMPRESSIONS: 1. The esophagus appeared normal 2. Large blood clot covering 2/3rds of the stomach. No active bleeding. Suctioned as much as possible 3. Large non-bleeding ulcer, ranging between 5-9mm in size, was found in the duodenal bulb; Argon plasma coagulation was applied to the site; with complete hemostasis achieved 4. Retroflexed views revealed large blood clot EGD PROCEDURE REPORT EXAM DATE: 03/19/2018 IMPRESSIONS: 1. The esophagus appeared normal 2. Two large ulcers, measuring 20 x 30mm in size, were found in the gastric body, on the lesser curvature of the stomach, and in the gastric antrum 3. Two ulcers ranging between 3-5 mm in size were found in the 1st part of the duodenum 4. Retroflexed views revealed no abnormalities RECOMMENDATIONS: 1. Anti-reflux regimen 2. Continue PPI 3. If rebleeds needs IR consultation with L gastric artery embolization PATIENT CONDITION: stable DISPOSITION: Inpatient REPEAT EXAM: Return 1 month EGD Bailey Trevizo MD eSigned: Bailey Trevizo MD 03/19/2018 12:13 PM Assessment and Plan - Assessment (1) Abdominal pain Code(s): R10.9 - Unspecified abdominal pain Status: Resolved (2) Acute GI bleeding Code(s): K92.2 - Gastrointestinal hemorrhage, unspecified Status: Acute (3) Acute hypotension Code(s): I95.9 - Hypotension, unspecified Status: Acute (4) Upper GI bleed Code(s): K92.2 - Gastrointestinal hemorrhage, unspecified Status: Acute (5) Cervical cancer Code(s): C53.9 - Malignant neoplasm of cervix uteri, unspecified Status: Chronic (6) Diabetes Code(s): E11.9 - Type 2 diabetes mellitus without complications Status: Chronic (7) Chronic back pain Code(s): M54.9 - Dorsalgia, unspecified; G89.29 - Other chronic pain Status: Chronic (8) Hypertension Code(s): I10 - Essential (primary) hypertension Status: Chronic - Plan 63 y/o AAM with PMHx of DM and Metastatic Cervical Cancer admitted for inpatient management of upper GI bleed, now resolved, patient now pending placement. Continue rehab efforts. Hypotensive, suspect secondary to narcotic side effect, asymptomatic Patient appears dry on exam -hold parameters placed on narcotics -Give small IV fluid bolus followed by 1 liter NS -begin Midodrine 5mg TID -monitor BP Sepsis, resolved Pyuria on repeat UA- catheterized specimen- 04/13 Fever, now afebrile Diarrhea - no WBC elevation, CXR negative - check CT of abdomen- unremarkable - check c diff - negative - ID ff. Continue on Levaquin to complete 7 day course - 04/21/18 Extensive DVT Left 04/13 - Dr. Benítez ff- heparin drip changed to Lovenox 40 mg SQ q12 04/15 - H/H appears stable, increased to Lovenox to 60mg SQ BID as recommended by hematology 04/17 Anemia, acute blood loss- resolved - s/p blood transfusion of 6U pRBC's previously this admission - no active bleeding - on PPI 40 mg bid - followed by GI. Repeat EGD on 04/04 showed possible esophagitis, gastric and duodenal ulcers. - monitor on po diet Previous Upper GI bleed EGD on 03/19 showed large 2 x 3 cm ulcer, had planned for rpt EGD in 1mth Repeat EGD findings as noted above. - Continue PPI, Carafate - Appreciate gastroenterology recommendations. If continued bleeding, may consider bleeding scan. Shingles, resolved. Postherpetic neuralgia. s/p 7-day course of Valtrex and topical Acyclovir, stopped on 04/04 Started Gabapentin.- increased to 600 mg tid Continue Percocet as needed. - Dr. Benítez increased her pain meds - d/w Dr. Benítez 04/15. also placed on Methadone Metastatic Cervical Cancer - Patient to continue outpatient chemotherapy when ready. - Pain management with bowel regimen - Palliative care following, appreciate assistance Type 2 Diabetes Mellitus Accu-Cheks with sliding scale insulin coverage - Blood sugars have been stable. No coverage needed. D/C accuchecks. - Diabetic diet Acute urinary retention - paz placed 04/11 DVT prophylaxis - patient is on therapeutic Lovenox Code Status: Full Discussed Condition With: patient, nursing staff, Dr. Avila Discharge Planning: Difficult placement. No SNF days left. Daily PT. CM assisting with ongoing discharge planning. (1) Abdominal pain Qualifiers: Abdominal location: generalized Qualified Code(s): R10.84 - Generalized abdominal pain (5) Cervical cancer Qualifiers: Malignant neoplasm of cervix location: unspecified location Qualified Code(s) : C53.9 - Malignant neoplasm of cervix uteri, unspecified
[2018-04-19] MEDS: Enoxaparin Inj 60 MG/0.6 ML Syringe SQ SCH ×2 (09:31→20:22)
[2018-04-19] MEDS: Sucralfate 1 GM Tablet PO SCH ×4 (09:31→20:22)
[2018-04-19] MEDS: levoFLOXacin 500 MG Tablet PO SCH (09:31)
[2018-04-19] MEDS: Gabapentin 300 MG Capsule PO SCH ×3 (09:31→17:32)
[2018-04-19] MEDS: Senna/Docusate Sodium 8.6/50 MG Tablet PO SCH ×2 (09:31→23:19)
[2018-04-19] MEDS: Sodium Chloride 0.9% 2 ML Flush BID IV.FLUSH SCH ×2 (09:35→20:23)
[2018-04-19] MEDS ORDERED: Sodium Chlor 0.9% Inj 250 ML IV.SIG SCH (11:24)
[2018-04-19] MEDS ORDERED: Sod Chloride 0.9% Inj 1,000 ML IV.CONT SCH (11:30)
--- NOTE | 2018-04-19 12:54 | P.PNPAL ---
Reason for Visit Reason for visit: a. To assist with evaluation and management of symptoms including:pain, constipation, flat affect b. To assist medical decision maker(s) with: better understanding of current medical conditions; weighing benefits/burdens of medical treatment options; making medical treatment decisions. Subjective Subjective/Interval History: Ms. Salmeron is a 63-year-old female who presented to [place] [facility] emergency room on 03/16 with complaints of abdominal pain, black tarry stool, increased weakness and lethargy, and hypotension. She has a significant past medical history for cervical cancer with metastatic disease including retroperitoneal and lung. She has been receiving weekly chemotherapy which showed some improvement of the original tumor though she did continue to have metastatic disease to the retroperitoneum as well as lung. She was continuing systemic treatment as an outpatient and hopeful for continued disease control. She also has a past medical history of asthma, COPD, coronary artery disease, diabetes, renal insufficiency requiring urinary stent placement, hypertension, history of a perforated ulcer. Of note the patient also reports taking NSAIDs daily for pain control. Upon evaluation the patient was found to be hypotensive and severely anemic. The decision was made to admit her and to ICU for further evaluation and treatment. GI was consulted due to severe anemia and complaints of melena. Patient underwent EGD on 05/17/18 which revealed a large clot covering two thirds of the stomach and a nonbleeding ulcer in the duodenal bulb. This was clot coagulated at this time. She was started on PPI therapy diet was advanced slowly. She required hemodynamic resuscitation with multiple liters of IV fluid and blood transfusions as deemed necessary in the ICU. General surgery was also consulted due to the abdominal pain and severe anemia though felt she did not require surgical intervention at this point was managed medically. Eventually homeostasis was achieved and repeat EGD was performed on 04/04/18 which ultimately revealed a total of 4 large ulcers to which of being gastric and 2 of which being duodenal. Over the course of her stay the patient reported some leg swelling intermittently. A venous Doppler on 04/13/18 showed a mass of iliofemoral left lower extremity DVT. She originally was started on Lovenox then switched to unfractionated heparin in light of her increased GI bleeding. She required transfusion again and at this point hematology oncology was consulted regarding recommendations for anticoagulant therapy versus inferior vena cava filter placement. 04/19/18 Palliative care to follow up with symptom management as well as goals of care. Sitting up in chair today. Verbalizes pain to lower abdomen, left flank, and LLE. Has been slightly hypotensive over the past 24 hours and unable to receive her scheduled methadone or any PRN's for pain. She has been given a 250ml fluid bolus yesterday and will receive another one today though appears to be somewhat unresponsive to this. Her MAP remains >65. She denies any nausea or vomiting. No instances of bleeding or melena. We discussed the possibility of adding Celexa to help with pain and any possible mood disturbances, patient declined at this time. Labs were done 04/18/18 at 2200. Clinical data revealed: * WBC 4.5, HGB 8.3, HCT 24.8, Plt 130, RBC 2.68 * Na 138, K+ 3.8, Cl 105, Co2 24.2, BUn 11, creatinine 0.73, glucose 86 Advance Directives Health Care Surrogate Name and Number: Bhakti Frank, daughter [phone] Documented care wishes:: The patient does not currently have a documented living will. She was able to complete a designation of health care surrogate form beside naming her daughter , Bhakti Frank ([phone]) as her primary HCP. She named her granddaughter, Don Frank as her alternate Significant change in goals:: No significant changes in goals of care Objective Vital Signs: Vital Signs 04/18/18 15:50 04/18/18 20:00 04/18/18 22:17 Temperature 99 F 99.4 F Pulse Rate 89 86 86 Respiratory Rate 14 16 Blood Pressure 90/52 L 96/56 L 103/86 Pulse Oximetry 100 97 04/19/18 00:00 04/19/18 04:00 04/19/18 08:00 Temperature 97.7 F 98.3 F 99.0 F Pulse Rate 86 86 87 Respiratory Rate 16 16 16 Blood Pressure 105/59 L 98/57 L 99/58 L Pulse Oximetry 97 100 98 Intake & Output 04/18/18 04/19/18 04/19/18 18:59 06:59 18:59 Intake Total 600 / 600 250 / 250 Output Total 1250 / 1250 900 / 900 Balance -650 / -650 -650 / -650 Weight 20.7 kg Intake: IV 250 / 250 NS Inj 250 ML @ 500 mls/hr IV. 250 / 250 SIG BOLUS SAMANTHA Rx#:[id number] Oral 600 / 600 Output: Urine 900 / 900 Urine Amount (Catheter) 1250 / 1250 Indwelling Urethral Catheter 1250 / 1250 Other: Date of Last Bowel Movement 04/14/18 04/15/18 04/19/18 # Bowel Movements 1 Physical Exam: CONSTITUTIONAL/GENERAL: This is an adequately nourished patient, in no apparent distress. TUBES/LINES/DRAINS: PIV, right chest wall port, Jackson cath SKIN: No jaundice, rashes, or lesions. Ecchymoses on upper extremities. Skin temperature appropriate. Not diaphoretic. ENT: Hearing grossly normal. Nose without bleeding or purulent drainage. Throat without visible erythema, exudates, masses, or lesions. CARDIOVASCULAR: Regular rate and rhythm without murmurs, gallops, or rubs. No JVD. LLE pedal pulse notably weaker, extremity is edematous RESPIRATORY/CHEST: Symmetric, unlabored respirations. Clear to auscultation. Breath sounds equal bilaterally. No wheezes, rales, or rhonchi. GASTROINTESTINAL: Abdomen soft, tender to light palpation left upper and bilateral lower quadrant, No guarding. Bowel sounds hypoactive GENITOURINARY: Without palpable bladder distension. Jackson catheter in place. MUSCULOSKELETAL: LLE slightly edematous painful to the touch. No mottling or clubbing. LYMPHATICS: No palpable cervical or supraclavicular adenopathy. NEUROLOGICAL: Awake and alert. Motor and sensory grossly within normal limits. Follows commands. Cognitively sharp. Moves all extremities. PSYCHIATRIC: No obvious anxiety/depression. no apparent hallucinations or other psychotic thought process. Flat affect Diagnostic Tests Laboratory: Laboratory Results - last 72 hr 04/16/18 04/16/18 04/17/18 16:42 23:19 05:50 WBC RBC Hgb Hct MCV MCH MCHC RDW Plt Count MPV Neut % (Auto) Lymph % (Auto) Hinds % (Auto) Eos % (Auto) Baso % (Auto) Neut # (Auto) Lymph # (Auto) Hinds # (Auto) Eos # (Auto) Baso # (Auto) WBC Differential Differential Comment Sodium Potassium Chloride Carbon Dioxide Anion Gap BUN Creatinine Estimated GFR POC Glucose 102 123 H 111 H Random Glucose Calcium Blood Type Antibody Screen MTS Gel Crossmatch Bld Prod Order Comment 04/17/18 04/17/18 04/17/18 07:20 11:52 17:31 WBC 4.0 RBC 2.74 L Hgb 8.5 L Hct 25.0 L MCV 91.0 MCH 31.0 MCHC 34.1 RDW 16.6 Plt Count 133 L MPV 6.7 L Neut % (Auto) 86.1 H Lymph % (Auto) 6.6 L Hinds % (Auto) 6.2 Eos % (Auto) 0.9 Baso % (Auto) 0.2 Neut # (Auto) 3.5 Lymph # (Auto) 0.3 L Hinds # (Auto) 0.2 Eos # (Auto) 0.0 Baso # (Auto) 0.0 WBC Differential . Differential Comment Auto diff final Sodium Potassium Chloride Carbon Dioxide Anion Gap BUN Creatinine Estimated GFR POC Glucose 97 124 H Random Glucose Calcium Blood Type Antibody Screen MTS Gel Crossmatch Bld Prod Order Comment 04/18/18 04/18/18 04/18/18 01:11 06:11 06:15 WBC 3.9 L RBC 2.63 L Hgb 8.3 L Hct 24.6 L MCV 93.7 MCH 31.5 MCHC 33.6 RDW 16.4 Plt Count 131 L MPV 6.6 L Neut % (Auto) 88.4 H Lymph % (Auto) 4.6 L Hinds % (Auto) 6.0 Eos % (Auto) 0.9 Baso % (Auto) 0.1 Neut # (Auto) 3.4 Lymph # (Auto) 0.2 L Hinds # (Auto) 0.2 Eos # (Auto) 0.0 Baso # (Auto) 0.0 WBC Differential . Differential Comment Auto diff final Sodium Potassium Chloride Carbon Dioxide Anion Gap BUN Creatinine Estimated GFR POC Glucose 111 H 97 Random Glucose Calcium Blood Type Antibody Screen MTS Gel Crossmatch Bld Prod Order Comment 04/18/18 04/18/18 04/18/18 06:15 11:42 17:31 WBC RBC Hgb Hct MCV MCH MCHC RDW Plt Count MPV Neut % (Auto) Lymph % (Auto) Hinds % (Auto) Eos % (Auto) Baso % (Auto) Neut # (Auto) Lymph # (Auto) Hinds # (Auto) Eos # (Auto) Baso # (Auto) WBC Differential Differential Comment Sodium 138 Potassium 3.8 Chloride 105 Carbon Dioxide 24.2 Anion Gap 9 BUN 11 Creatinine 0.73 Estimated GFR Greater than 89 POC Glucose 121 H 116 H Random Glucose 86 Calcium 9.3 Blood Type Antibody Screen MTS Gel Crossmatch Bld Prod Order Comment 04/18/18 04/18/18 04/19/18 22:42 22:42 00:25 WBC 4.5 RBC 2.68 L Hgb 8.3 L Hct 24.8 L MCV 92.5 MCH 31.0 MCHC 33.5 RDW 15.9 Plt Count 130 L MPV 6.5 L Neut % (Auto) Lymph % (Auto) Hinds % (Auto) Eos % (Auto) Baso % (Auto) Neut # (Auto) Lymph # (Auto) Hinds # (Auto) Eos # (Auto) Baso # (Auto) WBC Differential Differential Comment Sodium Potassium Chloride Carbon Dioxide Anion Gap BUN Creatinine Estimated GFR POC Glucose 117 H Random Glucose Calcium Blood Type O Positive Antibody Screen Negative MTS Gel Crossmatch See Detail Bld Prod Order Comment 04/19/18 04/19/18 06:14 11:51 WBC RBC Hgb Hct MCV MCH MCHC RDW Plt Count MPV Neut % (Auto) Lymph % (Auto) Hinds % (Auto) Eos % (Auto) Baso % (Auto) Neut # (Auto) Lymph # (Auto) Hinds # (Auto) Eos # (Auto) Baso # (Auto) WBC Differential Differential Comment Sodium Potassium Chloride Carbon Dioxide Anion Gap BUN Creatinine Estimated GFR POC Glucose 105 131 H Random Glucose Calcium Blood Type Antibody Screen MTS Gel Crossmatch Bld Prod Order Comment Result Diagrams: 04/18/18 22:42 04/18/18 06:15 Microbiology: Microbiology 04/13/18 04:27 Aerobic Blood Culture - Final Blood - Peripheral No growth in 5 days Anaerobic Blood Culture - Final No growth in 5 days 04/13/18 04:20 Aerobic Blood Culture - Final Blood - Peripheral No growth in 5 days Anaerobic Blood Culture - Final No growth in 5 days 04/13/18 03:15 Aerobic Blood Culture - Final Blood - Line No growth in 5 days Anaerobic Blood Culture - Final No growth in 5 days 04/13/18 12:07 Stool Occult Blood (BREN) - Final Stool Hemoccult negative Procedures: 03/17/18 * EGD 04/04/18 * repeat EGD Assessment and Plan - Symptom Scale (1) Pain 0-10 Scale: 8 Comment: was started on methadone 2.5mg QD 04/15/18, increased to 2.5mg Q8H (2) Debility 0-10 Scale: Unable to quantify (3) Flat affect 0-10 Scale: Unable to quantify Comment: currently denies any mood disturbances Pertinent Non-Medical Issues: Psychosocial: Ms. Salmeron is currently single. She was born and raised in the [facility]. 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 She has two children, 1 of which who is . She currently lives with her remaining daughter Bhakti and her family. Spiritual: Islam, her visits her regularly Legal: The patient was able to name her daughter Bhakti Frank as her primary healthcare surrogate. She named her granddaughter Chikis Frank as her alternate Ethical issues impacting care: There are currently no known ethical issues impacting care at this time Important Contacts: Bhakti Frank, daughter/primary HCS [phone] Chikis Frank, granddaughter/alternated HCS Prognosis: The patient has progressive cervical cancer with metastatic disease to the retroperitoneum and lungs. She has been unable to continue with systemic chemotherapy due to her prolonged hospitalization and debilitated status. This has also been complicated by an acute GI bleed and ulcer formation. She can definitely overcome this acute hospitalization though she has become deconditioned and frail deeming her most likely ineligible for any continuation of systemic chemotherapy or radiation. She is at further risk for increased hypercoagulability adverse effects, renal involvement, and any sequelae related to overall progression of her disease, including . Code Status: Full Code Plan: * LEGAL DECISION MAKER -the patient is currently able to participate in her own healthcare decision making. Should she become incapacitated any time she has named her daughter Bhakti Frank [phone] as her primary HCS. Designation form was signed and located in the electronic medical record * GOALS - Goals remain relatively unchanged. Patient would like more pain control and to eventually discharge home. She hopes to work with physical therapy to get her functional status back to baseline. She would like to continue with palliative chemotherapy with Dr. Marks. * * CODE STATUS -FULL CODE * SYMPTOMS Pain -chronic cancer pain. Methadone was increased to 2.5 mg every 8 hours as opposed to daily, though due to hypotension she has not been able to receive this regularly. Patient has oxycodone 7.5 mg every 6 hours as needed last dose was given 04/15/18 at 9 AM. She also has morphine 2 mg IV push every 4 hours. She last received this on 04/17/18 and on that day used a total of 6mg. She again reports that she feels morphine helps her more so than the oxycodone. Would like to see how well she does with the methadone prior to making any other changes though patient may actually benefit from oral morphine. Will need to monitor clinical picture. Debility - multifactorial, primary concern being progressive nature of cancer disease process. Would suggest working with PT/OT as able to. Could also consider dietary consult for calorie count to ensure adequate calorie intake as well as look at protein intake and requirements. Apparently patient no longer qualifies for SNF placement. She has been refusing PT due to pain and feeling tired. If patient is not able to continue with PT, she may not be able to return to her previous functional level. This will ultimately affect her eligibility for any further chemotherapy treatments. Flat affect -patient currently denies any kind of mood disturbances. Denies any past history of depression. Has never been on any type of SSRI or psychotropic drug. Considering her current clinical condition and downward trajectory could possibly benefit from small dose of SSRI. Discussed using a small dose of Celexa more so as an adjunct to pain management but may also help to improve mood. Patient declined at this time. Palliative care will continue to follow during hospital course as condition evolves, to assist patient/decision maker with understanding of medical conditions, weighing benefits/burdens of treatment options, for clarification of goals of treatment. Additionally will assist with any symptoms of palliative concern. Case discussed with RN (Olga) at bedside Attestation Attestation: To help prompt me to consider important information that might be impacting today's encounter and assessment, information from prior notes written by myself or my colleagues may have been "brought forward" into today's note. My signature on this note, however, is an attestation that I personally performed the exam, history, and/or decision-making noted today, and, unless otherwise indicated, the interactions with patient, family, and staff as well as the review of records all occurred today. I also attest that the listed assessment and stated plan reflect my best clinical judgment today based on the combination of historical information, prior notes, and today's exam/ interactions. When time spent is documented, it refers only to time spent today by the signer, or if indicated, combined time spent today by collaborating physician/nurse practitioner.
--- NOTE | 2018-04-19 13:51 | P.PNONC ---
Subjective Interval history: Patient lying in recliner, reports she does not feel good. She reports abdominal pain, back pain and leg pain. She is requesting morphine, her nurses notified, however her blood pressure is currently low and she is about to receive a saline bolus. Patient reports she had a bowel movement. Objective Vital Signs/Intake & Output: Vital Signs 04/18/18 15:50 04/18/18 20:00 04/18/18 22:17 Temperature 99 F 99.4 F Pulse Rate 89 86 86 Respiratory Rate 14 16 Blood Pressure 90/52 L 96/56 L 103/86 Pulse Oximetry 100 97 04/19/18 00:00 04/19/18 04:00 04/19/18 08:00 Temperature 97.7 F 98.3 F 99.0 F Pulse Rate 86 86 87 Respiratory Rate 16 16 16 Blood Pressure 105/59 L 98/57 L 99/58 L Pulse Oximetry 97 100 98 04/19/18 12:00 04/19/18 13:23 Temperature 98.9 F Pulse Rate 96 H Respiratory Rate 16 Blood Pressure 93/55 L 106/65 Pulse Oximetry 96 Intake & Output 04/18/18 04/19/18 04/19/18 18:59 06:59 18:59 Intake Total 600 / 600 250 / 250 250 / 250 Output Total 1250 / 1250 900 / 900 550 / 550 Balance -650 / -650 -650 / -650 -300 / -300 Weight 20.7 kg Intake: IV 250 / 250 250 / 250 NS Inj 250 ML @ 500 mls/hr IV. 250 / 250 250 / 250 SIG BOLUS SAMANTHA Rx#:[id number] Oral 600 / 600 Output: Urine 900 / 900 550 / 550 Urine Amount (Catheter) 1250 / 1250 Indwelling Urethral Catheter 1250 / 1250 Other: Date of Last Bowel Movement 04/14/18 04/15/18 04/19/18 # Bowel Movements 1 Result Diagrams: 04/18/18 22:42 04/18/18 06:15 Laboratory Results: Laboratory Results - last 24 hr 04/18/18 04/18/18 04/18/18 17:31 22:42 22:42 WBC 4.5 RBC 2.68 L Hgb 8.3 L Hct 24.8 L MCV 92.5 MCH 31.0 MCHC 33.5 RDW 15.9 Plt Count 130 L MPV 6.5 L POC Glucose 116 H Blood Type O Positive Antibody Screen Negative MTS Gel Crossmatch See Detail Bld Prod Order Comment 04/19/18 04/19/18 04/19/18 00:25 06:14 11:51 WBC RBC Hgb Hct MCV MCH MCHC RDW Plt Count MPV POC Glucose 117 H 105 131 H Blood Type Antibody Screen MTS Gel Crossmatch Bld Prod Order Comment Culture Results: Microbiology 04/13/18 04:27 Aerobic Blood Culture - Final Blood - Peripheral No growth in 5 days Anaerobic Blood Culture - Final No growth in 5 days 04/13/18 04:20 Aerobic Blood Culture - Final Blood - Peripheral No growth in 5 days Anaerobic Blood Culture - Final No growth in 5 days 04/13/18 03:15 Aerobic Blood Culture - Final Blood - Line No growth in 5 days Anaerobic Blood Culture - Final No growth in 5 days 04/13/18 12:07 Stool Occult Blood (BREN) - Final Stool Hemoccult negative Medications: Active Medications Generic Name Dose Route Start Last Admin Trade Name Freq PRN Reason Stop Dose Admin Albuterol 1 ampul 03/16/18 16:09 03/20/18 20:31 Duoneb Neb (Prn) NEB 1 ampul Q2HR NEB PRN Administration WHEEZING Enoxaparin Sodium 60 mg 04/17/18 21:00 04/19/18 09:31 Lovenox Inj SQ 60 mg Q12HR SAMANTHA Administration Gabapentin 600 mg 04/14/18 13:10 04/19/18 12:36 Neurontin PO 600 mg TID SAMANTHA Administration Sodium Chloride 250 mls @ 15 mls/hr 04/18/18 22:00 04/19/18 00:32 Ns Inj IV.SIG 04/19/18 14:39 Not Given ONCE SAMANTHA Sodium Chloride 1,000 mls @ 84 mls/hr 04/19/18 11:30 04/19/18 13:23 Ns Inj IV.CONT 04/19/18 23:24 84 mls/hr .[id number] SAMANTHA Administration Insulin Human Regular 0 units 03/16/18 18:00 04/19/18 12:36 Novolin R Correctional Sugar Inj SQ Not Given Q6HR SAMANTHA Protocol Lactulose 30 ml 03/16/18 16:09 04/19/18 12:36 Lactulose Liq PO 30 ml DAILY PRN Administration SEVERE CONSITIPATION Levofloxacin 500 mg 04/16/18 15:15 04/19/18 09:31 Levaquin PO 04/21/18 15:14 500 mg DAILY SAMANTHA Administration Methadone HCl 2.5 mg 04/17/18 15:00 04/19/18 13:37 Dolophine PO 2.5 mg Q8H SAMANTHA Administration Morphine Sulfate 2 mg 04/15/18 13:00 04/17/18 17:30 Morphine Inj IV.PUSH 2 mg Q4H PRN Administration BREAKTHROUGH PAIN Ondansetron HCl 4 mg 03/27/18 17:53 03/29/18 04:37 Zofran Inj IV.PUSH 4 mg Q6H PRN Administration nausea/vomiting Oxycodone/Acetaminophen 1 tab 04/12/18 13:41 04/15/18 09:09 Percocet 7.5/325 Mg PO 1 tab Q6H PRN Administration PAIN SCALE 6 TO 10 Pantoprazole Sodium 40 mg 04/05/18 21:00 04/19/18 09:31 Protonix PO 40 mg BID SAMANTHA Administration Senna/Docusate Sodium 1 tab 04/18/18 21:00 04/19/18 09:31 Beverly-Colace PO 1 tab BID SAMANTHA Administration Sodium Chloride 2 ml 03/20/18 09:00 04/19/18 09:35 Ns Flush IV.FLUSH 2 ml BID SAMANTHA Administration Sucralfate 1 gm 04/05/18 17:00 04/19/18 12:36 Carafate PO 1 gm ACHS SAMANTHA Administration Objective Remarks: GENERAL: Elderly female patient, appears older than stated age, in no acute distress. SKIN: Warm and dry. HEAD: Normocephalic. EYES: No scleral icterus. No injection or drainage. NECK: Supple, trachea midline. CARDIOVASCULAR: Regular rate and rhythm without murmurs. RESPIRATORY: Breath sounds equal bilaterally. No accessory muscle use. GASTROINTESTINAL: Abdomen soft, tender LLQ, nondistended. EXTREMITIES: No cyanosis. LLE>RLE MUSCULOSKELETAL: Decreased muscle tone. NEUROLOGICAL: Awake, alert, and oriented x3. PSYCHIATRIC: Appropriate mood and affect; insight and judgment normal. Assessment/Plan (1) DVT (deep venous thrombosis) Code(s): I82.409 - Acute embolism and thrombosis of unspecified deep veins of unspecified lower extremity Status: Acute (2) Cervical cancer Code(s): C53.9 - Malignant neoplasm of cervix uteri, unspecified Status: Chronic - Plan 63-year-old woman with metastatic/locally advanced cervical cancer. Her course is complicated by gastric and duodenal ulcer. She developed a left lower extremity deep vein thromboses. 1. Hemoglobin stable at 8.3 mg/dL. Subjectively denies bleeding. No bleeding noted on exam. Continues to have hypotension, likely secondary to pain medication. Patient receiving methadone if systolic is greater than 105. Denies chest pain or shortness of breath. 2. Cervical cancer. Patient is interested in palliative therapy coordinated by Dr. Marks. She will follow-up with Dr. Marks on an outpatient basis. 3. Chronic pain/cancer related pain. Continue current pain medications. Defer further management to palliative care. (1) DVT (deep venous thrombosis) Qualifiers: DVT location: lower extremity Affected thrombotic vein of extremity: iliac Chronicity: acute Laterality: left Qualified Code(s): I82.422 - Acute embolism and thrombosis of left iliac vein (2) Cervical cancer Qualifiers: Malignant neoplasm of cervix location: unspecified location Qualified Code(s) : C53.9 - Malignant neoplasm of cervix uteri, unspecified
[2018-04-19] MEDS: Morphine Sulfate Inj 2 MG/ML Vial IV.PUSH PRN (15:33)
[2018-04-20] MEDS: Insulin NovoLIN Regular Correctional Sugar Inj SQ SCH ×3 (01:26→12:15)
[2018-04-20] MEDS: Methadone 10 MG Tablet PO SCH ×2 (06:00→15:45)
[2018-04-20] MEDS: levoFLOXacin 500 MG Tablet PO SCH (08:38)
[2018-04-20] MEDS: Gabapentin 300 MG Capsule PO SCH ×3 (08:39→17:05)
[2018-04-20] MEDS: Sucralfate 1 GM Tablet PO SCH ×3 (08:39→17:05)
[2018-04-20] MEDS: Enoxaparin Inj 60 MG/0.6 ML Syringe SQ SCH (08:40)
[2018-04-20] MEDS: Senna/Docusate Sodium 8.6/50 MG Tablet PO SCH (08:40)
[2018-04-20] MEDS: Sodium Chloride 0.9% 2 ML Flush BID IV.FLUSH SCH (08:41)
--- NOTE | 2018-04-20 09:09 | P.DCO ---
- Diagnosis (1) Impaired activities of daily living Status: Acute (2) Weakness Status: Acute (3) Risk for falls Status: Acute (4) Cervical cancer Status: Chronic (5) Abdominal pain Status: Resolved (6) DVT (deep venous thrombosis) Status: Acute (7) Pain Status: Acute (8) Debility Status: Acute - Home Health Nursing Order: Medical education, Signs/symptoms of disease process, Medication education-adverse effect, Nursing assessment with vital signs Instructions: Lovenox injections and teaching - Case Management Consult Yes - Certification I have seen patient Morgan Salmeron on 04/20/18. My clinical findings support the need for the requested home health care services because: Limited mobility due to disease progression, Deconditioned with increased weakness, Limited ability to care for self, High risk of falls, Infection with risk of complications, Injectable medication education/administration I certify that my clinical findings support that this patient is homebound because: Unsteady gait/balance, Unsafe to leave home unassisted, Non-ambulatory: confined to bed or chair, Unable to use public transportation (4) Cervical cancer Qualifiers: Malignant neoplasm of cervix location: unspecified location Qualified Code(s) : C53.9 - Malignant neoplasm of cervix uteri, unspecified (5) Abdominal pain Qualifiers: Abdominal location: generalized Qualified Code(s): R10.84 - Generalized abdominal pain (6) DVT (deep venous thrombosis) Qualifiers: DVT location: lower extremity Affected thrombotic vein of extremity: iliac Chronicity: acute Laterality: left Qualified Code(s): I82.422 - Acute embolism and thrombosis of left iliac vein
--- NOTE | 2018-04-20 11:18 | P.DS ---
Date of admission: 03/16/18 16:14 Primary care physician: PROVIDER NON STAFF Attending physician on discharge: Humble Avila Anticipated date of discharge: 03/22/18 Brief History from admission: The patient is a 62-year-old female with past medical history of metastatic cervical cancer, diabetes mellitus, hypertension, bronchialasthma, who presented to [facility] this afternoon after being seen by her oncology team with symptoms of hypotension. She also reported epigastric abdominal pain associated with multiple loosedark melena stools for one day. She is on daily NSAIDs for her cancer and chemotherapy pain. She denies any associated symptoms of nausea, vomiting or dysphagia. The patient denies any history of blood thinners. On arrival to the ER, she was tachycardic with a heart rateof 115 and hypotensive with systolic blood pressure 80s-90s. Her laboratory data was significant for severe anemia with hemoglobin of 6.0 and hematocrit of 17.9. In addition, she was in renal failure with a BUN of 66 and creatinine 2.12, and hyperkalemic with potassium level of 6.1. Due to her abdominal pain, a CT scan of the abdomen andpelvis was obtained, which showed bilateral ureteral stents with some interval improvement of bilateral hydronephrosis compared to 03/03/2018 study. She also has evidence of fluid and air collection within the left hemipelvis, which is unchanged in appearance compared to previous examination. The patient has retroperitoneal lymphadenopathy and stable left pulmonary nodule. In the ER, she was given 2 liters of crystalloids and 3 units of packed red blood cells have been ordered. The patient was seen by GI service and plan is to proceed with upper endoscopy in the morning. The patient is on room air oxygen with a saturation of 98-100% and last blood pressure 94/50 with a MAP of 64. She denies any chest pain, shortness of breath, cough or any constitutional symptoms. Patient update on day of discharge: Patient seen and examined. Patient continues to have intermittent left-sided abdominal pain as well as left leg pain. She denies any other acute medical complaints or concerns. She is asking if she can go home today. DS: Diagnosis - Discharge Diagnosis (1) Abdominal pain Status: Resolved (2) Cervical cancer Status: Chronic (3) DVT (deep venous thrombosis) Status: Acute (4) Debility Status: Acute (5) Risk for falls Status: Acute (6) Pain Status: Acute (7) Weakness Status: Acute (8) Impaired activities of daily living Status: Acute DS: Medications - Discharge Medications Prescriptions: dicyclomine 20 mg PO QID #120 tab enoxaparin [Lovenox] 60 mg SUBCUT Q12HR 30 Days ml gabapentin [Neurontin] 600 mg PO TID 30 Days #180 cap hydrocodone-acetaminophen 1 tab PO Q4H PRN #60 tab PRN Reason: Pain methadone [Dolophine] 2.5 mg PO Q6H #30 tab midodrine 10 mg PO TID #90 tab ondansetron HCl [Zofran] 8 mg PO TID PRN #60 tab PRN Reason: Nausea pantoprazole [Protonix] 40 mg PO BID #60 tab sennosides-docusate sodium [Senna Plus] 1 tab PO BID #60 tab sitagliptin [Januvia] 100 mg PO DAILY #30 tab sucralfate 1 gm PO ACHS 30 Days tab DS: Summary Hospital Course: Patient was admitted to critical care service with GI bleed with a hemoglobin of 6.0. Patient received 6u PRBCs. Please refer to critical care notes for management monitor service. She was seen in consultation by GI and underwent an endoscopy on 03/17/2018 which revealed a large blood clot covering two thirds of the stomach and a large nonbleeding ulcer ranging from 5-9 mm in size of the duodenal bulb which was treated with argon plasma coagulation. She underwent a second EGD on 03/19 which revealed 2 large ulcers in the gastric body as well as 2 ulcers in the duodenum. Patient was seen in consultation by GS. Patient was transferred to hospitalist service. Patient developed shingles and was treated with a 7-day course of oral Valtrex and topical Acyclovir. Patient's hemoglobin dropped to 7 and he was transferred to additional units. He was changed from oral to IV PPI and GI was reconsulted. Patient underwent another EGD on 04/04 which revealed abnormal esophageal mucosa possible esophagitis, gastric and duodenal ulcers. Patient developed urinary retention a Jackson catheter was placed. She developed sepsis and CT abd revealed loculated air and fluid collection in the deep left hemipelvis possibly an abscess. She was seen in consultation by infectious disease and started on IV cefepime and Diflucan. She was noted to have an enlarged left leg follow-up Doppler study was positive for extensive clot. She was seen in consultation by hematology and started on unfractionated heparin. After no evidence of bleeding 48 hours, patient was changed to low molecular weight heparin. She was seen in consultation by palliative care. Patient's antibiotics were downgraded to Levaquin. Patient progressed with physical therapy. Jackson was removed and she was able to urinate on her own. Patient was cleared by all specialty services for discharge to home. Patient was discharged from the hospital to home with home health care in satisfactory condition. - Time Spent with Patient Total time spent providing and/or coordinating discharge services: Greater than 30 minutes - Quality: VTE Deep Vein Thrombosis/Pulmonary Embolism Present on Admission: No Exam Vital signs: Vital Signs 04/19/18 12:00 04/19/18 13:23 04/19/18 15:31 Temperature 98.9 F 98.3 F Pulse Rate 96 H 83 Respiratory Rate 16 16 Blood Pressure 93/55 L 106/65 118/67 Pulse Oximetry 96 98 04/19/18 16:00 04/19/18 20:00 04/20/18 00:00 Temperature 98.1 F 98 F Pulse Rate 81 81 87 Respiratory Rate 18 18 Blood Pressure 100/59 L 103/62 Pulse Oximetry 97 96 04/20/18 03:59 04/20/18 04:00 04/20/18 08:00 Temperature 98 F 99 F Pulse Rate 85 86 85 Respiratory Rate 18 16 Blood Pressure 97/59 L 118/71 Pulse Oximetry 97 97 Intake & Output 04/19/18 04/20/18 04/20/18 18:59 06:59 18:59 Intake Total 250 / 250 1000 / 1000 Output Total 800 / 800 2800 / 2800 Balance -550 / -550 -1800 / -1800 Weight 72.45 kg 72.45 kg Intake: IV 250 / 250 1000 / 1000 NS Inj 1,000 ML @ 84 mls/hr IV. 1000 / 1000 CONT .[id number] SAMANTHA Rx#:[id number] NS Inj 250 ML @ 500 mls/hr IV. 250 / 250 SIG BOLUS SAMANTHA Rx#:[id number] Output: Urine 800 / 800 2800 / 2800 Other: Date of Last Bowel Movement 04/19/18 04/20/18 04/20/18 # Bowel Movements 1 4 Narrative: GENERAL: Well-developed well-nourished elderly -[place] female patient, no acute distress. Awake and alert. Appears comfortable lying in bed. +Mild facial asymmetry. SKIN: Warm and dry. No generalized rash. HEENT: Atraumatic. Normocephalic. Pupils equal and round. No scleral icterus. No injection or drainage. No nasal bleeding or discharge. Mucous membranes pink and moist. NECK: Trachea midline. CARDIOVASCULAR: Regular rate and rhythm. RESPIRATORY: No accessory muscle use. Clear to auscultation. Breath sounds equal bilaterally. GASTROINTESTINAL: Abdomen soft, nondistended. +mild tenderness to palpation LLQ. Left flank with dry scabbing lesions. GENITOURINARY: Jackson in place with yellow urine in bag MUSCULOSKELETAL: Extremities without clubbing or cyanosis. Left leg larger than right. +tender to palpation. NEUROLOGICAL: Awake and alert. No obvious cranial nerve deficits. Motor grossly within normal limits. Able to move all extremities spontaneously. Normal speech. PSYCHIATRIC: Appropriate mood and affect; insight and judgment normal. Results Procedures completed during hospitalization: EGD PROCEDURE REPORT EXAM DATE: 03/17/2018 IMPRESSIONS: 1. The esophagus appeared normal 2. Large blood clot covering 2/3rds of the stomach. No active bleeding. Suctioned as much as possible 3. Large non-bleeding ulcer, ranging between 5-9mm in size, was found in the duodenal bulb; Argon plasma coagulation was applied to the site; with complete hemostasis achieved 4. Retroflexed views revealed large blood clot EGD PROCEDURE REPORT EXAM DATE: 03/19/2018 IMPRESSIONS: 1. The esophagus appeared normal 2. Two large ulcers, measuring 20 x 30mm in size, were found in the gastric body, on the lesser curvature of the stomach, and in the gastric antrum 3. Two ulcers ranging between 3-5 mm in size were found in the 1st part of the duodenum 4. Retroflexed views revealed no abnormalities RECOMMENDATIONS: 1. Anti-reflux regimen 2. Continue PPI 3. If rebleeds needs IR consultation with L gastric artery embolization PATIENT CONDITION: stable DISPOSITION: Inpatient REPEAT EXAM: Return 1 month EGD Bailey Trevizo MD eSigned: Bailey Trevizo MD 03/19/2018 12:13 PM Date of procedure: 04/04/18 Pre-op diagnosis: Worsening anemia, known recent history of stomach and duodenal ulcers Procedure: PROCEDURE PERFORMED EGD with biopsy IMPRESSION: Abnormal esophageal mucosa of unclear significance possible esophagitis Gastric ulcer Duodenal ulcers PLAN: Await biopsies Continue with pantoprazole 40 mg twice daily Consider adding Carafate Continue with current supportive care Anesthesia: MAC Surgeon: Yakov Soares Condition: stable Disposition: floor Completed studies during hospitalization: Pending at discharge 04/04/18 08:50 Surgical [PTH] Routine Labs on day of discharge: Labs from last 24 hours 04/19/18 11:51 POC Glucose 131 H - Impressions ITS Impressions Abdomen X-Ray 03/20/18 00:00 CONCLUSION: Nonspecific bowel gas pattern with some mildly to moderately dilated loops of small and large bowel with air. This can be seen with an ileus. Bilateral double-J stents in place. Abdomen/Pelvis CT 04/13/18 00:00 CONCLUSION: 1. Stable appearance of bilateral ureteral stents. Stable mild dilatation of the renal collecting systems. 2. Stable to slight improvement of loculated air and fluid collection in the deep left hemipelvis, possibly an abscess. 3. Moderate anasarca, slightly worse than on prior exam. 4. Pulmonary nodules at both lung bases as above, increased in size from March. 5. Moderate coronary calcifications. Chest X-Ray 04/13/18 00:00 CONCLUSION: No acute cardiopulmonary disease. Venous Doppler Study 04/13/18 00:00 CONCLUSION: 1. Massive iliofemoral left lower extremity DVT. The central component of the iliac thrombosis is not visualized. Therefore, more central extension of thrombus into the common iliac vein or IVC cannot be excluded. Discharge Plan - Discharge Disposition Patient Disposition: /Home Health Service - Discharge Condition Condition: Good - Discharge Order Discharge Orders: Discharge Order (Routine); Ordered 04/20/18 Ordered By: Rufina Austin - Discharge Details Anticipated Discharge Date: 04/20/18 Discharge Comment: discharge to home pending hematology clearance, voiding trial , [facility] set up with CM - Physicians Team Primary Care Provider: NON STAFF,PROVIDER Attending Provider: Humble Avila Other Providers: Yakov Soares MD ; [employer] ; Akua Valentine MD ; Eloise Benítez MD ; Rob Palma MD
[2018-04-20 11:43] VITALS: RESP 18; O2SAT 99
--- NOTE | 2018-04-20 14:48 | XR ---
EXAM DATE: 04/20/2018 2:40 PM EST AGE/SEX: 63 years / Female INDICATIONS: infiltrate. CLINICAL DATA: This is the patient's initial encounter. Patient reports that signs and symptoms have been present for 3 weeks and indicates a pain score of 9/10. MEDICAL/SURGICAL HISTORY: . diabetes, cancer Tonsillectomy. chemotherapy COMPARISON: [facility], CHEST 1V SINGLE AP, 04/13/2018. . FINDINGS: Stable right IJ [id number]. No significant new focal pleural or parenchymal opacities. The cardio mediastinal contours are unremarkable. Osseous structures are intact. CONCLUSION: 1. No acute abnormality or significant interval change. Electronically signed by: Ken Camacho MD 04/20/2018 2:47 PM EST
[2018-04-20 15:33] LABS: Baso % (Auto) 0.1 % (0.0-2.0); Eos % (Auto) 0.9 % (0.0-4.0); Hematocrit 23.3 % (35.0-46.0); Hemoglobin 8.1 gm/dL (11.6-15.3); Lymph # (Auto) 0.2 th/mm3 (1.0-4.8); Lymph % (Auto) 4.7 % (9.0-44.0); Mean Corpuscular HGB Conc 34.9 % (32.0-36.0); Mean Corpuscular Hemoglobin 31.7 pg (27.0-34.0); Mean Corpuscular Volume 90.8 fL (80.0-100.0); Mono # (Auto) 0.3 th/mm3 (0.0-0.9); Mono % (Auto) 5.6 % (0.0-8.0); Neut # (Auto) 4.6 th/mm3 (1.8-7.7); Neut % (Auto) 88.7 % (16.0-70.0); Platelet Count 145 th/mm3 (150-450); Red Blood Count 2.57 mil/mm3 (4.00-5.30); White Blood Count 5.2 th/mm3 (4.0-11.0)
[2018-04-20 16:09] VITALS: BP 129/69; TEMP 99.9
[2018-04-20 16:53] LABS: Bacteria,Urine Few /hpf; Bilirubin,Urine Negative (Negative); Clarity,Urine Cloudy (Clear); Color,Urine Yellow (Yellw/Straw); Glucose,Urine (UA) Negative (Negative); Leukocyte Esterase,Urine Large (Negative); Nitrite,Urine Negative (Negative); Specific Gravity,Urine 1.009 (1.002-1.035); Squamous Epithelial Cell,Urine 9 /hpf (0-5)
[2018-04-20 16:58] VITALS: PULSE 74
[2018-04-20] MEDS ORDERED: Enoxaparin Inj 60 MG/0.6 ML Syringe SQ SCH (17:00)
== END 2018-04-20 22:02 | disposition home health service (06) ==
LOC: NEPC 11:36 → NEDA 16:14 → N03 17:00 → N05 03-23 04:21
PROVIDERS: ADMIT Hospitalist; ATTEND Hospitalist
PROC: PANENDO (2018-03-17 13:15)
DX: I10 Essential (primary) hypertension; I82.422 Acute embolism and thrombosis of left iliac vein; E83.42 Hypomagnesemia; R19.7 Diarrhea, unspecified; R51 Headache; K26.9 Duodenal ulcer, unspecified as acute or chronic, without hemorrhage or perforation; N17.9 Acute kidney failure, unspecified; R53.81 Other malaise; D62 Acute posthemorrhagic anemia; Z79.1 Long term (current) use of non-steroidal anti-inflammatories (NSAID); B02.29 Other postherpetic nervous system involvement; E87.5 Hyperkalemia; J44.9 Chronic obstructive pulmonary disease, unspecified; Z79.84 Long term (current) use of oral hypoglycemic drugs; I95.9 Hypotension, unspecified; C78.01 Secondary malignant neoplasm of right lung; G89.3 Neoplasm related pain (acute) (chronic); A41.9 Sepsis, unspecified organism; R91.1 Solitary pulmonary nodule; K25.4 Chronic or unspecified gastric ulcer with hemorrhage; B02.9 Zoster without complications; D69.6 Thrombocytopenia, unspecified; E11.9 Type 2 diabetes mellitus without complications; C53.9 Malignant neoplasm of cervix uteri, unspecified; R00.0 Tachycardia, unspecified; I25.10 Atherosclerotic heart disease of native coronary artery without angina pectoris; Z91.81 History of falling; E87.6 Hypokalemia; C78.00 Secondary malignant neoplasm of unspecified lung; M54.9 Dorsalgia, unspecified; K20.9 Esophagitis, unspecified; C78.6 Secondary malignant neoplasm of retroperitoneum and peritoneum; Z87.891 Personal history of nicotine dependence